=== PATIENT | male | born 1955 | race Caucasian/White ===

== ENCOUNTER 2016-11-18 10:24 | Emergency (ER) | payer SELFPAY ==
[~2016-11-18] VITALS: Ht 175.3 cm; Wt 76.4 kg
[2016-11-18 10:26] VITALS: BP 142/81; PULSE 85; RESP 16; TEMP 99.3; O2SAT 95
[2016-11-18 10:35] VITALS: O2SAT 96
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
[2016-11-18] MEDS ORDERED: SODIUM CHLORIDE 0.9% FLUSH 5 ML FLUSH IV FLUSH PRN (10:45)
--- NOTE | 2016-11-18 10:49 | RADRPT ---
EXAM DATE/TIME: 11/18/2016 10:36 [facility] COMPARISON: No previous studies available for comparison. INDICATIONS : Altered mental status; disorientation, slurred speech, resolved now. RADIATION DOSE: 41.77 CTDIvol (mGy) MEDICAL HISTORY : None SURGICAL HISTORY : None. ENCOUNTER: Initial ACUITY: 1 day PAIN SCALE: 0/10 LOCATION: cranial TECHNIQUE: Multiple contiguous axial images were obtained of the head. Using automated exposure control and adj ustment of the mA and/or kV according to patient size, radiation dose was kept as low as reasonably a chievable to obtain optimal diagnostic quality images. FINDINGS: CEREBRUM: The ventricles are normal. No evidence of midline shift, mass lesion, hemorrhage or acute infarction . No extra-axial fluid collections are seen. POSTERIOR FOSSA: The cerebellum and brainstem demonstrate no acute finding. The 4th ventricle is midline. The cerebe llopontine angle is unremarkable. EXTRACRANIAL: The visualized sinuses are clear. SKULL: The calvaria is intact. No evidence of skull fracture. CONCLUSION: No acute intracranial abnormality is identified. Tomy Jackson MD on November 18, 2016 at 10:45 Board Certified Radiologist. This report was verified electronically.
[2016-11-18 10:55] LABS: AUTOMATED NEUTROPHIL # 3.2 TH/MM3 (1.8-7.7); BASOPHIL # 0.2 TH/MM3 (0-0.2); BASOPHIL % 3.8 % (0.0-2.0); EOSINOPHIL # 0.9 TH/MM3 (0-0.4); EOSINOPHIL % 14.4 % (0.0-4.0); HEMATOCRIT 45.7 % (39.0-51.0); HEMO FLAGS DIFF FINAL; LYMPH % 19.9 % (9.0-44.0); LYMPHOCYTE # 1.2 TH/MM3 (1.0-4.8); MEAN CORPUSCULAR HEMOGLOBIN 27.8 PG (27.0-34.0); MEAN CORPUSCULAR HGB CONC 33.5 % (32.0-36.0); MONO % 10.2 % (0.0-8.0); NEUT % 51.7 % (16.0-70.0); PLATELET COUNT 292 TH/MM3 (150-450); RED BLOOD COUNT 5.51 MIL/MM3 (4.50-5.90); RED CELL DISTRIBUTION WIDTH 13.8 % (11.6-17.2); WHITE BLOOD COUNT 6.2 TH/MM3 (4.0-11.0)
--- NOTE | 2016-11-18 11:09 | RADRPT ---
EXAM DATE/TIME: 11/18/2016 10:46 [facility] COMPARISON: CHEST PA & LAT, February 17, 2015, 13:23. INDICATIONS : Syncopal episode. MEDICAL HISTORY : None. SURGICAL HISTORY : None. ENCOUNTER: Initial ACUITY: 1 day PAIN SCORE: 0/10 LOCATION: Bilateral chest FINDINGS: Portable AP view of the chest demonstrates a normal-sized cardiac silhouette. No effusion, consolidat ion, or pneumothorax is visualized. The bones and soft tissues demonstrate no acute abnormality. CONCLUSION: Normal single view chest x-ray. Tomy Jackson MD on November 18, 2016 at 11:07 Board Certified Radiologist. This report was verified electronically.
[2016-11-18 11:10] LABS: ALT (GPT) 23 U/L (12-78); ANION GAP 10 MEQ/L (5-15); AST (GOT) 15 U/L (15-37); BICARBONATE 28.4 MEQ/L (21.0-32.0); BLOOD UREA NITROGEN 10 MG/DL (7-18); CHLORIDE 103 MEQ/L (98-107); GLOMERULAR FILTRATION RATE 72 ML/MIN (>89); POTASSIUM 4.1 MEQ/L (3.5-5.1); SODIUM (NA) 141 MEQ/L (136-145)
[2016-11-18 11:14] LABS: ALKALINE PHOSPHATASE 78 U/L (45-117); TOTAL BILIRUBIN ADULT 0.4 MG/DL (0.2-1.0)
[2016-11-18 11:25] VITALS: BP 138/75; PULSE 69; RESP 18; O2SAT 97
[2016-11-18 11:35] LABS: CREATINE KINASE 46 U/L (39-308)
[2016-11-18 11:43] LABS: BLOOD, URINE NEG (NEG); COMMENT (UR) CULT NOT INDICATED; CULTURE IF INDICATED CULT NOT INDICATED; GLUCOSE,URINE NEG (NEG); KETONE, URINE NEG (NEG); MUCUS URINE FEW /lpf (OCC); NITRITE,URINE NEG (NEG); PH, URINE 5.5 (5.0-8.5); URINE COLOR YELLOW (YELLW/STRAW)
--- NOTE | 2016-11-18 14:56 | EKG ---
Date Performed: 11/18/2016 Time Performed: 11:39:43 PTAGE: 61 years EKG: Sinus rhythm NORMAL ECG COMPARED TO PRIOR ELECTROCARDIOGRAM, Rate has slowed and R-wave progression has normalize d. PREVIOUS TRACING : 02/17/2015 11.51 DOCTOR: Oc Ellison Interpretating Date/Time 11/18/2016 14:54:40
== END 2016-11-18 19:26 | disposition home or self-care (01) ==
LOC: NEPE 10:24
DX: R41.82 Altered mental status, unspecified (principal); R41.0 Disorientation, unspecified; R50.9 Fever, unspecified; Z72.0 Tobacco use
CPT/HCPCS: 70450; 71010; 80053; 81001; 82140; 82435; 82550; 82565; 82947; 83605; 84132; 84295; 84484; 84520; 85025; 87040; 93005

== ENCOUNTER 2018-05-08 20:34 | Inpatient (IN) ==
[2018-05-08] MEDS ORDERED: DOPamine 800 MG/500 ML Premix 800 MG/500 ML PLAST..BAG IV.CONT PRN (20:52)
--- NOTE | 2018-05-08 21:01 | XR ---
EXAM DATE: 05/08/2018 8:54 PM EST AGE/SEX: 63 years / Male INDICATIONS: Stemi alert. CLINICAL DATA: This is the patient's initial encounter. Patient reports that signs and symptoms have been present for 1 day and indicates a pain score of Nonresponsive. MEDICAL/SURGICAL HISTORY: None. None. COMPARISON: No prior exams available for comparison. FINDINGS: ET tube tip 2 cm above the fannie. Gastric tube tip is at the level of the diaphragm and the side-por t is in the lower chest. The lungs are symmetrically aerated. There is mild crowding of the central b ronchopulmonary markings suggesting submaximal inspiration. The heart is normal in size. CONCLUSION: 1. ET tube in good position. 2. Gastric tube side-port is in the lower chest and the tube needs to be advanced at least 7 cm. Electronically signed by: Ritesh Langston MD 05/08/2018 9:00 PM EST
[2018-05-08 21:10] LABS: Baso # (Auto) 0.1 th/mm3 (0.0-0.2); Baso % (Auto) 0.9 % (0.0-2.0); Eos # (Auto) 1.4 th/mm3 (0.0-0.4); Eos % (Auto) 10.3 % (0.0-4.0); Hematocrit 45.6 % (39.0-51.0); Hemoglobin 15.2 gm/dL (13.0-17.0); Lymph # (Auto) 3.1 th/mm3 (1.0-4.8); Lymph % (Auto) 22.6 % (9.0-44.0); Mean Corpuscular HGB Conc 33.3 % (32.0-36.0); Mean Corpuscular Hemoglobin 28.4 pg (27.0-34.0); Mean Corpuscular Volume 85.3 fL (80.0-100.0); Mean Platelet Volume 8.1 fL (7.0-11.0); Mono # (Auto) 0.9 th/mm3 (0.0-0.9); Mono % (Auto) 6.8 % (0.0-8.0); Neut # (Auto) 8.1 th/mm3 (1.8-7.7); Neut % (Auto) 59.4 % (16.0-70.0); Platelet Count 327 th/mm3 (150-450); Red Blood Count 5.35 mil/mm3 (4.50-5.90); Red Cell Distribution Width 14.2 % (11.6-17.2); White Blood Count 13.6 th/mm3 (4.0-11.0)
--- NOTE | 2018-05-08 21:11 | ED ---
HPI General Chief complaint: Cardiac Arrest/CPR Stated complaint: cardiac/evac Time Seen by Provider: 05/08/18 20:43 History of Present Illness HPI narrative: Patient 63-year-old male presents emergency department intubated after VF/VT arrest. He had to be defibrillated twice in the field, afterwards clear STEMI criteria was called by EVAC. Apparently heard a collapse in the next room found the patient unresponsive called 9 1. Apparently total downtime was about 10 minutes and had a very quick Ross. Blood pressure was little low and dopamine drip was started in the field. Patient also had amiodarone started in the field. Related Data Home Medications Medication Instructions Recorded Confirmed No Known Home Medications 05/08/18 05/08/18 Allergies Allergy/AdvReac Type Severity Reaction Status Date / Time No Known Allergies Allergy Uncoded 02/17/15 12:05 [facility] Medical History Medical History History of MRSA infection (Acute ~05/08/18) Surgical History Surgical History History of arthroscopy of both knees (Acute) Family History Family History Father Atherosclerotic heart disease Social History Social History Substance History: Unable to Obtain Smoking Status: Unknown if ever smoked How Often Do You Have a Drink Containing Alcohol: Unable to Obtain Recent Travel in [facility] within the Last 8 Weeks: No Recent Out of Country Travel within the Last 8 Weeks: No Immunization History Tetanus Immunization: Unable to Assess Course Initial Documented Vital Signs Respiratory Rate 25 H 05/08/18 20:35 Pulse Oximetry 100 05/08/18 20:35 Last Documented Vital Signs Temperature 100.6 F H 05/14/18 12:00 Pulse Rate 85 05/14/18 12:23 Respiratory Rate 24 05/14/18 12:23 Blood Pressure 132/70 05/14/18 12:00 Pulse Oximetry 97 05/14/18 12:23 Critical Care Time Critical Care Time: Yes Total Critical Care Time: 35 Attestation: Aggregate critical care time was 35 minutes. Time to perform other separately billable procedures was not included in the critical care time. My time did not include minutes spent treating any other patients simultaneously or on activities that did not directly contribute to the patient's treatment. The services I provided to this patient were to treat and/or prevent clinically significant deterioration that could result in: , disability, organ failure I provided critical care services requiring my management, as noted below: Chart data review, documentation time, medication orders and management, vital sign assessments/reviewing monitor data, ordering and reviewing lab tests, ordering and interpreting/reviewing x-rays and diagnostic studies, care of the patient and discussion of the patient with the admitting physicians. Medical Decision Making MDM Narrative Medical decision making narrative: 63-year-old male presents emergency department post VF VT arrest, clear STEMI and an anterior inferior pattern. The patient was actually STEMI alert. Dr. Blum is called as he is currently in the [employer] with another patient. I discussed the case with him but ultimately the patient is [employer] patient and will be Dr. Cardenas's patient patient was discussed with Dr. Cardenas and he is coming to the hospital to evaluate the patient. Patient also does have some dried blood in his nares. Quite possibly fell on his head the same time and needs to be excluded from intracranial hemorrhage prior to receiving heparin or aspirin. The patient was taken immediately to the CAT scanner and the patient was discussed with the on- call radiologist and immediately after the CAT scan was performed the patient was diagnosed with a punctate pontine hemorrhage. The patient was discussed again with both Drs. Cardenas and Viktoria in all 3 of us in agreement that the patient cannot be heparinized and the risks far outweigh the benefits and therefore unfortunately cannot proceed with cardiac catheterization. The patient STEMI alert was canceled. Patient was discussed with Dr. Palmer and probably can benefit from cooling protocol and Dr. Palmer is agreeable. Cooling catheter will be placed in the emergency department the patient will be transferred to the intensive care unit. Patient was started on amiodarone drip, blood cultures lactic acid were obtained. Patient initially was moving his left upper extremity, later in his stay in the emergency department he is now requiring aggressive stimulation to trigger any neurologic response and he is moving both upper extremities but appears to be in a nonpurposeful movement and may be neurologic reflex only. Patient's arrived at bedside was counseled by Dr. Palmer. Prognosis seems poor. Medical Screen Exam Complete: Yes Emergency Medical Condition: Yes Lab Data Result diagrams: 05/14/18 04:05 05/14/18 04:05 Lab Results 05/08/18 05/08/18 05/08/18 Range/Units 20:45 20:45 20:45 WBC 13.6 H (4.0-11.0) th/mm3 RBC 5.35 (4.50-5.90) mil/mm3 Hgb 15.2 (13.0-17.0) gm/dL POC Hgb (Calc) 15.6 (13.0-17.0) g/dL Hct 45.6 (39.0-51.0) % POC Hct 46.0 (39-51.0) % MCV 85.3 (80.0-100.0) fL MCH 28.4 (27.0-34.0) pg MCHC 33.3 (32.0-36.0) % RDW 14.2 (11.6-17.2) % Plt Count 327 (150-450) th/mm3 MPV 8.1 (7.0-11.0) fL Prelim Diff (Auto) Slide review pending Neut % (Auto) 59.4 (16.0-70.0) % Lymph % (Auto) 22.6 (9.0-44.0) % Harper % (Auto) 6.8 (0.0-8.0) % Eos % (Auto) 10.3 H (0.0-4.0) % Baso % (Auto) 0.9 (0.0-2.0) % Neut # (Auto) 8.1 H (1.8-7.7) th/mm3 Lymph # (Auto) 3.1 (1.0-4.8) th/mm3 Harper # (Auto) 0.9 (0.0-0.9) th/mm3 Eos # (Auto) 1.4 H (0.0-0.4) th/mm3 Baso # (Auto) 0.1 (0.0-0.2) th/mm3 WBC Differential Manual diff final Seg Neuts % (Manual) 63 (16-70) % Lymphocytes % (Manual) 21 (9-44) % Monocytes % (Manual) 7 (0-8) % Eosinophils % (Manual) 9 H (0-4) % Abs Neuts (Manual) 8.6 H (1.8-7.7) th/mm3 Differential Comment . Platelet Estimate Normal (Normal) Platelet Morphology Normal (Normal) RBC Morphology Normal (Normal) PT 11.2 (9.8-11.6) sec INR 1.1 Ratio APTT 24.5 (23.4-31.7) sec Puncture Site Patient Temperature O2 Saturation (90-100) % ABG pH (7.320-7.420) ABG pCO2 (38-42) mmHg ABG pO2 (60-120) mmHg ABG HCO3 (22-26) mmol/L ABG O2 Content (12.0-20.0) Vol % ABG Base Excess (-2-2) mmol/L ABG Methemoglobin (0-2) % David Test Hemoglobin (12.0-16.0) G/DL Carboxyhemoglobin (0-4) % O2 Delivery Device Vent Setting Inspired O2 % Critical Value POC Sodium 137 (137-144) mmol/L Sodium 137 (136-145) meq/L POC Potassium 3.2 L (3.6-5.0) mmol/L Potassium 3.2 L (3.5-5.1) meq/L POC Chloride 96 L (102-111) mmol/L Chloride 100 (98-107) meq/L Carbon Dioxide 20.5 L (21.0-32.0) meq/L Anion Gap 17 H (5-15) meq/L POC BUN 6 (5-21) mg/dL BUN 7 (7-18) mg/dL Creatinine 1.13 (0.60-1.30) mg/dL POC Creatinine 1.0 (0.6-1.3) mg/dL Estimated GFR 65 L (>89) mL/min POC Glucose 327 H (68-110) mg/dL Random Glucose 328 H (74-106) mg/dL Hemoglobin A1c (4.3-6.0) % Lactic Acid (0.4-2.0) mmol/L Calcium 8.9 (8.5-10.1) mg/dL Phosphorus (2.5-4.9) mg/dL Magnesium (1.5-2.5) mg/dL Total Bilirubin 1.0 (0.2-1.0) mg/dL Direct Bilirubin (0.0-0.2) mg/dL Indirect Bilirubin (0.0-0.8) mg/dL AST 107 H (15-37) U/L ALT 86 H (12-78) U/L Alkaline Phosphatase 88 (45-117) U/L Ammonia (11-32) mcmol/L Total Creatine Kinase (39-308) U/L CK-MB (CK-2) (0.5-3.6) ng/mL CK-MB (CK-2) % (0.0-4.0) % Troponin I 0.38 H (0.02-0.05) ng/mL Total Protein 6.4 (6.4-8.2) g/dL Albumin 3.4 (3.4-5.0) g/dL Triglycerides (42-150) mg/dL Cholesterol (120-200) mg/dL LDL Cholesterol, Calc (0-99) mg/dL HDL Cholesterol (40.0-60.0) mg/dL Cholesterol/HDL Ratio Ratio TSH (0.358-3.740) uIU/mL Free T4 (0.76-1.46) ng/dL Total T3 (60-181) ng/dL Cortisol mcg/dL Urine Color (Yellw/Straw) Urine Clarity (Clear) Urine pH (5.0-8.5) Ur Specific Bentley (1.002-1.035) Urine Protein (Neg-Trace) mg/dL Urine Glucose (UA) (Negative) mg/dL Urine Ketones (Negative) mg/dL Urine Occult Blood (Negative) Urine Nitrate (Negative) Urine Bilirubin (Negative) Urine Urobilinogen (Less than 2) mg/dL Ur Leukocyte Esterase (Negative) Urine RBC (0-3) /hpf Urine WBC (0-5) /hpf Ur Squamous Epith Cells (0-5) /hpf Urine Bacteria (None) /hpf Micro UA Comment Ur Microscopic Review Urine Culture Comments Nasal Screen MRSA (PCR) (Negative) Urine Opiates Screen (Neg) Ur Barbiturates Screen (Neg) Phenytoin (10.0-20.0) mcg/mL Ur Amphetamines Screen (Neg) Phenobarbital (15.0-40.0) mcg/mL U Benzodiazepines Scrn (Neg) Urine Cocaine Screen (Neg) U Cannabinoids Screen (Neg) Hepatitis A IgM Ab (Nonreactive) Hep Bs Antigen (Nonreactive) Hep B Core IgM Ab (Nonreactive) Hep C IgG Ab (Nonreactive) Blood Type Blood Type Recheck Antibody Screen 05/08/18 05/08/18 05/08/18 Range/Units 21:38 21:50 22:30 WBC (4.0-11.0) th/mm3 RBC (4.50-5.90) mil/mm3 Hgb (13.0-17.0) gm/dL POC Hgb (Calc) (13.0-17.0) g/dL Hct (39.0-51.0) % POC Hct (39-51.0) % MCV (80.0-100.0) fL MCH (27.0-34.0) pg MCHC (32.0-36.0) % RDW (11.6-17.2) % Plt Count (150-450) th/mm3 MPV (7.0-11.0) fL Prelim Diff (Auto) Neut % (Auto) (16.0-70.0) % Lymph % (Auto) (9.0-44.0) % Harper % (Auto) (0.0-8.0) % Eos % (Auto) (0.0-4.0) % Baso % (Auto) (0.0-2.0) % Neut # (Auto) (1.8-7.7) th/mm3 Lymph # (Auto) (1.0-4.8) th/mm3 Harper # (Auto) (0.0-0.9) th/mm3 Eos # (Auto) (0.0-0.4) th/mm3 Baso # (Auto) (0.0-0.2) th/mm3 WBC Differential Seg Neuts % (Manual) (16-70) % Lymphocytes % (Manual) (9-44) % Monocytes % (Manual) (0-8) % Eosinophils % (Manual) (0-4) % Abs Neuts (Manual) (1.8-7.7) th/mm3 Differential Comment Platelet Estimate (Normal) Platelet Morphology (Normal) RBC Morphology (Normal) PT (9.8-11.6) sec INR Ratio APTT (23.4-31.7) sec Puncture Site Right femoral Patient Temperature 98.6 O2 Saturation 99 (90-100) % ABG pH 7.39 (7.320-7.420) ABG pCO2 42 (38-42) mmHg ABG pO2 244 H (60-120) mmHg ABG HCO3 24 (22-26) mmol/L ABG O2 Content 22.2 H (12.0-20.0) Vol % ABG Base Excess 0.0 (-2-2) mmol/L ABG Methemoglobin 0.6 (0-2) % David Test Hemoglobin 15.7 (12.0-16.0) G/DL Carboxyhemoglobin 0.6 (0-4) % O2 Delivery Device Ventilator Vent Setting Inspired O2 100 % Critical Value No POC Sodium (137-144) mmol/L Sodium (136-145) meq/L POC Potassium (3.6-5.0) mmol/L Potassium (3.5-5.1) meq/L POC Chloride (102-111) mmol/L Chloride (98-107) meq/L Carbon Dioxide (21.0-32.0) meq/L Anion Gap (5-15) meq/L POC BUN (5-21) mg/dL BUN (7-18) mg/dL Creatinine (0.60-1.30) mg/dL POC Creatinine (0.6-1.3) mg/dL Estimated GFR (>89) mL/min POC Glucose (68-110) mg/dL Random Glucose (74-106) mg/dL Hemoglobin A1c (4.3-6.0) % Lactic Acid 4.6 H* (0.4-2.0) mmol/L Calcium (8.5-10.1) mg/dL Phosphorus (2.5-4.9) mg/dL Magnesium (1.5-2.5) mg/dL Total Bilirubin (0.2-1.0) mg/dL Direct Bilirubin (0.0-0.2) mg/dL Indirect Bilirubin (0.0-0.8) mg/dL AST (15-37) U/L ALT (12-78) U/L Alkaline Phosphatase (45-117) U/L Ammonia (11-32) mcmol/L Total Creatine Kinase (39-308) U/L CK-MB (CK-2) (0.5-3.6) ng/mL CK-MB (CK-2) % (0.0-4.0) % Troponin I (0.02-0.05) ng/mL Total Protein (6.4-8.2) g/dL Albumin (3.4-5.0) g/dL Triglycerides (42-150) mg/dL Cholesterol (120-200) mg/dL LDL Cholesterol, Calc (0-99) mg/dL HDL Cholesterol (40.0-60.0) mg/dL Cholesterol/HDL Ratio Ratio TSH (0.358-3.740) uIU/mL Free T4 (0.76-1.46) ng/dL Total T3 (60-181) ng/dL Cortisol mcg/dL Urine Color Straw (Yellw/Straw) Urine Clarity Clear (Clear) Urine pH 6.0 (5.0-8.5) Ur Specific Bentley 1.005 (1.002-1.035) Urine Protein 30 H (Neg-Trace) mg/dL Urine Glucose (UA) 500 or greater (Negative) mg/dL Urine Ketones Trace H (Negative) mg/dL Urine Occult Blood Moderate H (Negative) Urine Nitrate Negative (Negative) Urine Bilirubin Negative (Negative) Urine Urobilinogen Less than 2 (Less than 2) mg/dL Ur Leukocyte Esterase Negative (Negative) Urine RBC 5 H (0-3) /hpf Urine WBC 6 H (0-5) /hpf Ur Squamous Epith Cells <1 (0-5) /hpf Urine Bacteria Occasional H (None) /hpf Micro UA Comment Cath-culture ind Ur Microscopic Review Not Reportable Urine Culture Comments Cath-cult indicated Nasal Screen MRSA (PCR) (Negative) Urine Opiates Screen (Neg) Ur Barbiturates Screen (Neg) Phenytoin (10.0-20.0) mcg/mL Ur Amphetamines Screen (Neg) Phenobarbital (15.0-40.0) mcg/mL U Benzodiazepines Scrn (Neg) Urine Cocaine Screen (Neg) U Cannabinoids Screen (Neg) Hepatitis A IgM Ab (Nonreactive) Hep Bs Antigen (Nonreactive) Hep B Core IgM Ab (Nonreactive) Hep C IgG Ab (Nonreactive) Blood Type Blood Type Recheck Antibody Screen 05/08/18 05/09/18 05/09/18 Range/Units 22:30 00:07 01:10 WBC (4.0-11.0) th/mm3 RBC (4.50-5.90) mil/mm3 Hgb (13.0-17.0) gm/dL POC Hgb (Calc) (13.0-17.0) g/dL Hct (39.0-51.0) % POC Hct (39-51.0) % MCV (80.0-100.0) fL MCH (27.0-34.0) pg MCHC (32.0-36.0) % RDW (11.6-17.2) % Plt Count (150-450) th/mm3 MPV (7.0-11.0) fL Prelim Diff (Auto) Neut % (Auto) (16.0-70.0) % Lymph % (Auto) (9.0-44.0) % Harper % (Auto) (0.0-8.0) % Eos % (Auto) (0.0-4.0) % Baso % (Auto) (0.0-2.0) % Neut # (Auto) (1.8-7.7) th/mm3 Lymph # (Auto) (1.0-4.8) th/mm3 Harper # (Auto) (0.0-0.9) th/mm3 Eos # (Auto) (0.0-0.4) th/mm3 Baso # (Auto) (0.0-0.2) th/mm3 WBC Differential Seg Neuts % (Manual) (16-70) % Lymphocytes % (Manual) (9-44) % Monocytes % (Manual) (0-8) % Eosinophils % (Manual) (0-4) % Abs Neuts (Manual) (1.8-7.7) th/mm3 Differential Comment Platelet Estimate (Normal) Platelet Morphology (Normal) RBC Morphology (Normal) PT (9.8-11.6) sec INR Ratio APTT (23.4-31.7) sec Puncture Site Patient Temperature O2 Saturation (90-100) % ABG pH (7.320-7.420) ABG pCO2 (38-42) mmHg ABG pO2 (60-120) mmHg ABG HCO3 (22-26) mmol/L ABG O2 Content (12.0-20.0) Vol % ABG Base Excess (-2-2) mmol/L ABG Methemoglobin (0-2) % David Test Hemoglobin (12.0-16.0) G/DL Carboxyhemoglobin (0-4) % O2 Delivery Device Vent Setting Inspired O2 % Critical Value POC Sodium (137-144) mmol/L Sodium (136-145) meq/L POC Potassium (3.6-5.0) mmol/L Potassium (3.5-5.1) meq/L POC Chloride (102-111) mmol/L Chloride (98-107) meq/L Carbon Dioxide (21.0-32.0) meq/L Anion Gap (5-15) meq/L POC BUN (5-21) mg/dL BUN (7-18) mg/dL Creatinine (0.60-1.30) mg/dL POC Creatinine (0.6-1.3) mg/dL Estimated GFR (>89) mL/min POC Glucose 275 H (68-110) mg/dL Random Glucose (74-106) mg/dL Hemoglobin A1c (4.3-6.0) % Lactic Acid (0.4-2.0) mmol/L Calcium (8.5-10.1) mg/dL Phosphorus (2.5-4.9) mg/dL Magnesium (1.5-2.5) mg/dL Total Bilirubin 1.1 H (0.2-1.0) mg/dL Direct Bilirubin 0.3 H (0.0-0.2) mg/dL Indirect Bilirubin 0.8 (0.0-0.8) mg/dL AST 151 H (15-37) U/L ALT 120 H (12-78) U/L Alkaline Phosphatase 95 (45-117) U/L Ammonia (11-32) mcmol/L Total Creatine Kinase (39-308) U/L CK-MB (CK-2) (0.5-3.6) ng/mL CK-MB (CK-2) % (0.0-4.0) % Troponin I (0.02-0.05) ng/mL Total Protein 7.5 D (6.4-8.2) g/dL Albumin 4.1 D (3.4-5.0) g/dL Triglycerides (42-150) mg/dL Cholesterol (120-200) mg/dL LDL Cholesterol, Calc (0-99) mg/dL HDL Cholesterol (40.0-60.0) mg/dL Cholesterol/HDL Ratio Ratio TSH (0.358-3.740) uIU/mL Free T4 (0.76-1.46) ng/dL Total T3 (60-181) ng/dL Cortisol mcg/dL Urine Color (Yellw/Straw) Urine Clarity (Clear) Urine pH (5.0-8.5) Ur Specific Bentley (1.002-1.035) Urine Protein (Neg-Trace) mg/dL Urine Glucose (UA) (Negative) mg/dL Urine Ketones (Negative) mg/dL Urine Occult Blood (Negative) Urine Nitrate (Negative) Urine Bilirubin (Negative) Urine Urobilinogen (Less than 2) mg/dL Ur Leukocyte Esterase (Negative) Urine RBC (0-3) /hpf Urine WBC (0-5) /hpf Ur Squamous Epith Cells (0-5) /hpf Urine Bacteria (None) /hpf Micro UA Comment Ur Microscopic Review Urine Culture Comments Nasal Screen MRSA (PCR) Mrsa detected (Negative) Urine Opiates Screen (Neg) Ur Barbiturates Screen (Neg) Phenytoin (10.0-20.0) mcg/mL Ur Amphetamines Screen (Neg) Phenobarbital (15.0-40.0) mcg/mL U Benzodiazepines Scrn (Neg) Urine Cocaine Screen (Neg) U Cannabinoids Screen (Neg) Hepatitis A IgM Ab (Nonreactive) Hep Bs Antigen (Nonreactive) Hep B Core IgM Ab (Nonreactive) Hep C IgG Ab (Nonreactive) Blood Type Blood Type Recheck Antibody Screen 05/09/18 05/09/18 05/09/18 Range/Units 01:10 02:25 04:57 WBC 18.3 H (4.0-11.0) th/mm3 RBC 5.36 (4.50-5.90) mil/mm3 Hgb 15.2 (13.0-17.0) gm/dL POC Hgb (Calc) (13.0-17.0) g/dL Hct 45.9 (39.0-51.0) % POC Hct (39-51.0) % MCV 85.6 (80.0-100.0) fL MCH 28.3 (27.0-34.0) pg MCHC 33.1 (32.0-36.0) % RDW 14.1 (11.6-17.2) % Plt Count 275 (150-450) th/mm3 MPV 7.4 (7.0-11.0) fL Prelim Diff (Auto) Neut % (Auto) 91.6 H (16.0-70.0) % Lymph % (Auto) 2.3 L (9.0-44.0) % Harper % (Auto) 5.8 (0.0-8.0) % Eos % (Auto) 0.2 (0.0-4.0) % Baso % (Auto) 0.1 (0.0-2.0) % Neut # (Auto) 16.7 H (1.8-7.7) th/mm3 Lymph # (Auto) 0.4 L (1.0-4.8) th/mm3 Harper # (Auto) 1.1 H (0.0-0.9) th/mm3 Eos # (Auto) 0.0 (0.0-0.4) th/mm3 Baso # (Auto) 0.0 (0.0-0.2) th/mm3 WBC Differential . Seg Neuts % (Manual) (16-70) % Lymphocytes % (Manual) (9-44) % Monocytes % (Manual) (0-8) % Eosinophils % (Manual) (0-4) % Abs Neuts (Manual) (1.8-7.7) th/mm3 Differential Comment Auto diff final Platelet Estimate (Normal) Platelet Morphology (Normal) RBC Morphology (Normal) PT (9.8-11.6) sec INR Ratio APTT (23.4-31.7) sec Puncture Site Patient Temperature O2 Saturation (90-100) % ABG pH (7.320-7.420) ABG pCO2 (38-42) mmHg ABG pO2 (60-120) mmHg ABG HCO3 (22-26) mmol/L ABG O2 Content (12.0-20.0) Vol % ABG Base Excess (-2-2) mmol/L ABG Methemoglobin (0-2) % David Test Hemoglobin (12.0-16.0) G/DL Carboxyhemoglobin (0-4) % O2 Delivery Device Vent Setting Inspired O2 % Critical Value POC Sodium (137-144) mmol/L Sodium 135 L (136-145) meq/L POC Potassium (3.6-5.0) mmol/L Potassium 3.5 (3.5-5.1) meq/L POC Chloride (102-111) mmol/L Chloride 101 (98-107) meq/L Carbon Dioxide 23.9 (21.0-32.0) meq/L Anion Gap 10 (5-15) meq/L POC BUN (5-21) mg/dL BUN 10 (7-18) mg/dL Creatinine 0.88 (0.60-1.30) mg/dL POC Creatinine (0.6-1.3) mg/dL Estimated GFR 87 L (>89) mL/min POC Glucose (68-110) mg/dL Random Glucose 336 H (74-106) mg/dL Hemoglobin A1c (4.3-6.0) % Lactic Acid (0.4-2.0) mmol/L Calcium 8.7 (8.5-10.1) mg/dL Phosphorus 1.7 L (2.5-4.9) mg/dL Magnesium 1.7 (1.5-2.5) mg/dL Total Bilirubin 1.1 H (0.2-1.0) mg/dL Direct Bilirubin (0.0-0.2) mg/dL Indirect Bilirubin (0.0-0.8) mg/dL AST 146 H (15-37) U/L ALT 116 H (12-78) U/L Alkaline Phosphatase 90 (45-117) U/L Ammonia (11-32) mcmol/L Total Creatine Kinase (39-308) U/L CK-MB (CK-2) (0.5-3.6) ng/mL CK-MB (CK-2) % (0.0-4.0) % Troponin I 2.86 H* (0.02-0.05) ng/mL Total Protein 7.2 (6.4-8.2) g/dL Albumin 3.9 (3.4-5.0) g/dL Triglycerides (42-150) mg/dL Cholesterol (120-200) mg/dL LDL Cholesterol, Calc (0-99) mg/dL HDL Cholesterol (40.0-60.0) mg/dL Cholesterol/HDL Ratio Ratio TSH (0.358-3.740) uIU/mL Free T4 (0.76-1.46) ng/dL Total T3 (60-181) ng/dL Cortisol mcg/dL Urine Color (Yellw/Straw) Urine Clarity (Clear) Urine pH (5.0-8.5) Ur Specific Bentley (1.002-1.035) Urine Protein (Neg-Trace) mg/dL Urine Glucose (UA) (Negative) mg/dL Urine Ketones (Negative) mg/dL Urine Occult Blood (Negative) Urine Nitrate (Negative) Urine Bilirubin (Negative) Urine Urobilinogen (Less than 2) mg/dL Ur Leukocyte Esterase (Negative) Urine RBC (0-3) /hpf Urine WBC (0-5) /hpf Ur Squamous Epith Cells (0-5) /hpf Urine Bacteria (None) /hpf Micro UA Comment Ur Microscopic Review Urine Culture Comments Nasal Screen MRSA (PCR) (Negative) Urine Opiates Screen (Neg) Ur Barbiturates Screen (Neg) Phenytoin (10.0-20.0) mcg/mL Ur Amphetamines Screen (Neg) Phenobarbital (15.0-40.0) mcg/mL U Benzodiazepines Scrn (Neg) Urine Cocaine Screen (Neg) U Cannabinoids Screen (Neg) Hepatitis A IgM Ab (Nonreactive) Hep Bs Antigen (Nonreactive) Hep B Core IgM Ab (Nonreactive) Hep C IgG Ab (Nonreactive) Blood Type O Positive Blood Type Recheck Required Antibody Screen Negative 05/09/18 05/09/18 05/09/18 Range/Units 04:57 05:00 07:07 WBC (4.0-11.0) th/mm3 RBC (4.50-5.90) mil/mm3 Hgb (13.0-17.0) gm/dL POC Hgb (Calc) (13.0-17.0) g/dL Hct (39.0-51.0) % POC Hct (39-51.0) % MCV (80.0-100.0) fL MCH (27.0-34.0) pg MCHC (32.0-36.0) % RDW (11.6-17.2) % Plt Count (150-450) th/mm3 MPV (7.0-11.0) fL Prelim Diff (Auto) Neut % (Auto) (16.0-70.0) % Lymph % (Auto) (9.0-44.0) % Harper % (Auto) (0.0-8.0) % Eos % (Auto) (0.0-4.0) % Baso % (Auto) (0.0-2.0) % Neut # (Auto) (1.8-7.7) th/mm3 Lymph # (Auto) (1.0-4.8) th/mm3 Harper # (Auto) (0.0-0.9) th/mm3 Eos # (Auto) (0.0-0.4) th/mm3 Baso # (Auto) (0.0-0.2) th/mm3 WBC Differential Seg Neuts % (Manual) (16-70) % Lymphocytes % (Manual) (9-44) % Monocytes % (Manual) (0-8) % Eosinophils % (Manual) (0-4) % Abs Neuts (Manual) (1.8-7.7) th/mm3 Differential Comment Platelet Estimate (Normal) Platelet Morphology (Normal) RBC Morphology (Normal) PT 11.8 H (9.8-11.6) sec INR 1.2 Ratio APTT 27.7 (23.4-31.7) sec Puncture Site Patient Temperature O2 Saturation (90-100) % ABG pH (7.320-7.420) ABG pCO2 (38-42) mmHg ABG pO2 (60-120) mmHg ABG HCO3 (22-26) mmol/L ABG O2 Content (12.0-20.0) Vol % ABG Base Excess (-2-2) mmol/L ABG Methemoglobin (0-2) % David Test Hemoglobin (12.0-16.0) G/DL Carboxyhemoglobin (0-4) % O2 Delivery Device Vent Setting Inspired O2 % Critical Value POC Sodium (137-144) mmol/L Sodium (136-145) meq/L POC Potassium (3.6-5.0) mmol/L Potassium (3.5-5.1) meq/L POC Chloride (102-111) mmol/L Chloride (98-107) meq/L Carbon Dioxide (21.0-32.0) meq/L Anion Gap (5-15) meq/L POC BUN (5-21) mg/dL BUN (7-18) mg/dL Creatinine (0.60-1.30) mg/dL POC Creatinine (0.6-1.3) mg/dL Estimated GFR (>89) mL/min POC Glucose 326 H 254 H (68-110) mg/dL Random Glucose (74-106) mg/dL Hemoglobin A1c (4.3-6.0) % Lactic Acid (0.4-2.0) mmol/L Calcium (8.5-10.1) mg/dL Phosphorus (2.5-4.9) mg/dL Magnesium (1.5-2.5) mg/dL Total Bilirubin (0.2-1.0) mg/dL Direct Bilirubin (0.0-0.2) mg/dL Indirect Bilirubin (0.0-0.8) mg/dL AST (15-37) U/L ALT (12-78) U/L Alkaline Phosphatase (45-117) U/L Ammonia (11-32) mcmol/L Total Creatine Kinase (39-308) U/L CK-MB (CK-2) (0.5-3.6) ng/mL CK-MB (CK-2) % (0.0-4.0) % Troponin I (0.02-0.05) ng/mL Total Protein (6.4-8.2) g/dL Albumin (3.4-5.0) g/dL Triglycerides (42-150) mg/dL Cholesterol (120-200) mg/dL LDL Cholesterol, Calc (0-99) mg/dL HDL Cholesterol (40.0-60.0) mg/dL Cholesterol/HDL Ratio Ratio TSH (0.358-3.740) uIU/mL Free T4 (0.76-1.46) ng/dL Total T3 (60-181) ng/dL Cortisol mcg/dL Urine Color (Yellw/Straw) Urine Clarity (Clear) Urine pH (5.0-8.5) Ur Specific Bentley (1.002-1.035) Urine Protein (Neg-Trace) mg/dL Urine Glucose (UA) (Negative) mg/dL Urine Ketones (Negative) mg/dL Urine Occult Blood (Negative) Urine Nitrate (Negative) Urine Bilirubin (Negative) Urine Urobilinogen (Less than 2) mg/dL Ur Leukocyte Esterase (Negative) Urine RBC (0-3) /hpf Urine WBC (0-5) /hpf Ur Squamous Epith Cells (0-5) /hpf Urine Bacteria (None) /hpf Micro UA Comment Ur Microscopic Review Urine Culture Comments Nasal Screen MRSA (PCR) (Negative) Urine Opiates Screen (Neg) Ur Barbiturates Screen (Neg) Phenytoin (10.0-20.0) mcg/mL Ur Amphetamines Screen (Neg) Phenobarbital (15.0-40.0) mcg/mL U Benzodiazepines Scrn (Neg) Urine Cocaine Screen (Neg) U Cannabinoids Screen (Neg) Hepatitis A IgM Ab (Nonreactive) Hep Bs Antigen (Nonreactive) Hep B Core IgM Ab (Nonreactive) Hep C IgG Ab (Nonreactive) Blood Type Blood Type Recheck Antibody Screen 05/09/18 05/09/18 05/09/18 Range/Units 07:59 09:00 09:04 WBC (4.0-11.0) th/mm3 RBC (4.50-5.90) mil/mm3 Hgb (13.0-17.0) gm/dL POC Hgb (Calc) (13.0-17.0) g/dL Hct (39.0-51.0) % POC Hct (39-51.0) % MCV (80.0-100.0) fL MCH (27.0-34.0) pg MCHC (32.0-36.0) % RDW (11.6-17.2) % Plt Count (150-450) th/mm3 MPV (7.0-11.0) fL Prelim Diff (Auto) Neut % (Auto) (16.0-70.0) % Lymph % (Auto) (9.0-44.0) % Harper % (Auto) (0.0-8.0) % Eos % (Auto) (0.0-4.0) % Baso % (Auto) (0.0-2.0) % Neut # (Auto) (1.8-7.7) th/mm3 Lymph # (Auto) (1.0-4.8) th/mm3 Harper # (Auto) (0.0-0.9) th/mm3 Eos # (Auto) (0.0-0.4) th/mm3 Baso # (Auto) (0.0-0.2) th/mm3 WBC Differential Seg Neuts % (Manual) (16-70) % Lymphocytes % (Manual) (9-44) % Monocytes % (Manual) (0-8) % Eosinophils % (Manual) (0-4) % Abs Neuts (Manual) (1.8-7.7) th/mm3 Differential Comment Platelet Estimate (Normal) Platelet Morphology (Normal) RBC Morphology (Normal) PT (9.8-11.6) sec INR Ratio APTT (23.4-31.7) sec Puncture Site Patient Temperature O2 Saturation (90-100) % ABG pH (7.320-7.420) ABG pCO2 (38-42) mmHg ABG pO2 (60-120) mmHg ABG HCO3 (22-26) mmol/L ABG O2 Content (12.0-20.0) Vol % ABG Base Excess (-2-2) mmol/L ABG Methemoglobin (0-2) % David Test Hemoglobin (12.0-16.0) G/DL Carboxyhemoglobin (0-4) % O2 Delivery Device Vent Setting Inspired O2 % Critical Value POC Sodium (137-144) mmol/L Sodium 138 (136-145) meq/L POC Potassium (3.6-5.0) mmol/L Potassium 2.8 L* (3.5-5.1) meq/L POC Chloride (102-111) mmol/L Chloride 103 (98-107) meq/L Carbon Dioxide 24.6 (21.0-32.0) meq/L Anion Gap 10 (5-15) meq/L POC BUN (5-21) mg/dL BUN 10 (7-18) mg/dL Creatinine 0.82 (0.60-1.30) mg/dL POC Creatinine (0.6-1.3) mg/dL Estimated GFR Greater than 89 (>89) mL/min POC Glucose 293 H 265 H (68-110) mg/dL Random Glucose 277 H (74-106) mg/dL Hemoglobin A1c (4.3-6.0) % Lactic Acid (0.4-2.0) mmol/L Calcium 8.7 (8.5-10.1) mg/dL Phosphorus (2.5-4.9) mg/dL Magnesium 1.9 (1.5-2.5) mg/dL Total Bilirubin (0.2-1.0) mg/dL Direct Bilirubin (0.0-0.2) mg/dL Indirect Bilirubin (0.0-0.8) mg/dL AST (15-37) U/L ALT (12-78) U/L Alkaline Phosphatase (45-117) U/L Ammonia (11-32) mcmol/L Total Creatine Kinase (39-308) U/L CK-MB (CK-2) (0.5-3.6) ng/mL CK-MB (CK-2) % (0.0-4.0) % Troponin I (0.02-0.05) ng/mL Total Protein (6.4-8.2) g/dL Albumin (3.4-5.0) g/dL Triglycerides (42-150) mg/dL Cholesterol (120-200) mg/dL LDL Cholesterol, Calc (0-99) mg/dL HDL Cholesterol (40.0-60.0) mg/dL Cholesterol/HDL Ratio Ratio TSH (0.358-3.740) uIU/mL Free T4 (0.76-1.46) ng/dL Total T3 (60-181) ng/dL Cortisol mcg/dL Urine Color (Yellw/Straw) Urine Clarity (Clear) Urine pH (5.0-8.5) Ur Specific Bentley (1.002-1.035) Urine Protein (Neg-Trace) mg/dL Urine Glucose (UA) (Negative) mg/dL Urine Ketones (Negative) mg/dL Urine Occult Blood (Negative) Urine Nitrate (Negative) Urine Bilirubin (Negative) Urine Urobilinogen (Less than 2) mg/dL Ur Leukocyte Esterase (Negative) Urine RBC (0-3) /hpf Urine WBC (0-5) /hpf Ur Squamous Epith Cells (0-5) /hpf Urine Bacteria (None) /hpf Micro UA Comment Ur Microscopic Review Urine Culture Comments Nasal Screen MRSA (PCR) (Negative) Urine Opiates Screen (Neg) Ur Barbiturates Screen (Neg) Phenytoin (10.0-20.0) mcg/mL Ur Amphetamines Screen (Neg) Phenobarbital (15.0-40.0) mcg/mL U Benzodiazepines Scrn (Neg) Urine Cocaine Screen (Neg) U Cannabinoids Screen (Neg) Hepatitis A IgM Ab (Nonreactive) Hep Bs Antigen (Nonreactive) Hep B Core IgM Ab (Nonreactive) Hep C IgG Ab (Nonreactive) Blood Type Blood Type Recheck Antibody Screen 05/09/18 05/09/18 05/09/18 Range/Units 09:54 10:55 11:02 WBC (4.0-11.0) th/mm3 RBC (4.50-5.90) mil/mm3 Hgb (13.0-17.0) gm/dL POC Hgb (Calc) (13.0-17.0) g/dL Hct (39.0-51.0) % POC Hct (39-51.0) % MCV (80.0-100.0) fL MCH (27.0-34.0) pg MCHC (32.0-36.0) % RDW (11.6-17.2) % Plt Count (150-450) th/mm3 MPV (7.0-11.0) fL Prelim Diff (Auto) Neut % (Auto) (16.0-70.0) % Lymph % (Auto) (9.0-44.0) % Harper % (Auto) (0.0-8.0) % Eos % (Auto) (0.0-4.0) % Baso % (Auto) (0.0-2.0) % Neut # (Auto) (1.8-7.7) th/mm3 Lymph # (Auto) (1.0-4.8) th/mm3 Harper # (Auto) (0.0-0.9) th/mm3 Eos # (Auto) (0.0-0.4) th/mm3 Baso # (Auto) (0.0-0.2) th/mm3 WBC Differential Seg Neuts % (Manual) (16-70) % Lymphocytes % (Manual) (9-44) % Monocytes % (Manual) (0-8) % Eosinophils % (Manual) (0-4) % Abs Neuts (Manual) (1.8-7.7) th/mm3 Differential Comment Platelet Estimate (Normal) Platelet Morphology (Normal) RBC Morphology (Normal) PT (9.8-11.6) sec INR Ratio APTT (23.4-31.7) sec Puncture Site Patient Temperature O2 Saturation (90-100) % ABG pH (7.320-7.420) ABG pCO2 (38-42) mmHg ABG pO2 (60-120) mmHg ABG HCO3 (22-26) mmol/L ABG O2 Content (12.0-20.0) Vol % ABG Base Excess (-2-2) mmol/L ABG Methemoglobin (0-2) % David Test Hemoglobin (12.0-16.0) G/DL Carboxyhemoglobin (0-4) % O2 Delivery Device Vent Setting Inspired O2 % Critical Value POC Sodium (137-144) mmol/L Sodium (136-145) meq/L POC Potassium (3.6-5.0) mmol/L Potassium (3.5-5.1) meq/L POC Chloride (102-111) mmol/L Chloride (98-107) meq/L Carbon Dioxide (21.0-32.0) meq/L Anion Gap (5-15) meq/L POC BUN (5-21) mg/dL BUN (7-18) mg/dL Creatinine (0.60-1.30) mg/dL POC Creatinine (0.6-1.3) mg/dL Estimated GFR (>89) mL/min POC Glucose 255 H 240 H (68-110) mg/dL Random Glucose (74-106) mg/dL Hemoglobin A1c (4.3-6.0) % Lactic Acid (0.4-2.0) mmol/L Calcium (8.5-10.1) mg/dL Phosphorus (2.5-4.9) mg/dL Magnesium (1.5-2.5) mg/dL Total Bilirubin (0.2-1.0) mg/dL Direct Bilirubin (0.0-0.2) mg/dL Indirect Bilirubin (0.0-0.8) mg/dL AST (15-37) U/L ALT (12-78) U/L Alkaline Phosphatase (45-117) U/L Ammonia (11-32) mcmol/L Total Creatine Kinase (39-308) U/L CK-MB (CK-2) (0.5-3.6) ng/mL CK-MB (CK-2) % (0.0-4.0) % Troponin I (0.02-0.05) ng/mL Total Protein (6.4-8.2) g/dL Albumin (3.4-5.0) g/dL Triglycerides (42-150) mg/dL Cholesterol (120-200) mg/dL LDL Cholesterol, Calc (0-99) mg/dL HDL Cholesterol (40.0-60.0) mg/dL Cholesterol/HDL Ratio Ratio TSH (0.358-3.740) uIU/mL Free T4 (0.76-1.46) ng/dL Total T3 (60-181) ng/dL Cortisol mcg/dL Urine Color (Yellw/Straw) Urine Clarity (Clear) Urine pH (5.0-8.5) Ur Specific Bentley (1.002-1.035) Urine Protein (Neg-Trace) mg/dL Urine Glucose (UA) (Negative) mg/dL Urine Ketones (Negative) mg/dL Urine Occult Blood (Negative) Urine Nitrate (Negative) Urine Bilirubin (Negative) Urine Urobilinogen (Less than 2) mg/dL Ur Leukocyte Esterase (Negative) Urine RBC (0-3) /hpf Urine WBC (0-5) /hpf Ur Squamous Epith Cells (0-5) /hpf Urine Bacteria (None) /hpf Micro UA Comment Ur Microscopic Review Urine Culture Comments Nasal Screen MRSA (PCR) (Negative) Urine Opiates Screen Pos H (Neg) Ur Barbiturates Screen Neg (Neg) Phenytoin (10.0-20.0) mcg/mL Ur Amphetamines Screen Neg (Neg) Phenobarbital (15.0-40.0) mcg/mL U Benzodiazepines Scrn Pos H (Neg) Urine Cocaine Screen Neg (Neg) U Cannabinoids Screen Neg (Neg) Hepatitis A IgM Ab (Nonreactive) Hep Bs Antigen (Nonreactive) Hep B Core IgM Ab (Nonreactive) Hep C IgG Ab (Nonreactive) Blood Type Blood Type Recheck Antibody Screen 05/09/18 05/09/18 05/09/18 Range/Units 12:01 13:02 13:58 WBC (4.0-11.0) th/mm3 RBC (4.50-5.90) mil/mm3 Hgb (13.0-17.0) gm/dL POC Hgb (Calc) (13.0-17.0) g/dL Hct (39.0-51.0) % POC Hct (39-51.0) % MCV (80.0-100.0) fL MCH (27.0-34.0) pg MCHC (32.0-36.0) % RDW (11.6-17.2) % Plt Count (150-450) th/mm3 MPV (7.0-11.0) fL Prelim Diff (Auto) Neut % (Auto) (16.0-70.0) % Lymph % (Auto) (9.0-44.0) % Harper % (Auto) (0.0-8.0) % Eos % (Auto) (0.0-4.0) % Baso % (Auto) (0.0-2.0) % Neut # (Auto) (1.8-7.7) th/mm3 Lymph # (Auto) (1.0-4.8) th/mm3 Harper # (Auto) (0.0-0.9) th/mm3 Eos # (Auto) (0.0-0.4) th/mm3 Baso # (Auto) (0.0-0.2) th/mm3 WBC Differential Seg Neuts % (Manual) (16-70) % Lymphocytes % (Manual) (9-44) % Monocytes % (Manual) (0-8) % Eosinophils % (Manual) (0-4) % Abs Neuts (Manual) (1.8-7.7) th/mm3 Differential Comment Platelet Estimate (Normal) Platelet Morphology (Normal) RBC Morphology (Normal) PT (9.8-11.6) sec INR Ratio APTT (23.4-31.7) sec Puncture Site Patient Temperature O2 Saturation (90-100) % ABG pH (7.320-7.420) ABG pCO2 (38-42) mmHg ABG pO2 (60-120) mmHg ABG HCO3 (22-26) mmol/L ABG O2 Content (12.0-20.0) Vol % ABG Base Excess (-2-2) mmol/L ABG Methemoglobin (0-2) % David Test Hemoglobin (12.0-16.0) G/DL Carboxyhemoglobin (0-4) % O2 Delivery Device Vent Setting Inspired O2 % Critical Value POC Sodium (137-144) mmol/L Sodium (136-145) meq/L POC Potassium (3.6-5.0) mmol/L Potassium (3.5-5.1) meq/L POC Chloride (102-111) mmol/L Chloride (98-107) meq/L Carbon Dioxide (21.0-32.0) meq/L Anion Gap (5-15) meq/L POC BUN (5-21) mg/dL BUN (7-18) mg/dL Creatinine (0.60-1.30) mg/dL POC Creatinine (0.6-1.3) mg/dL Estimated GFR (>89) mL/min POC Glucose 234 H 197 H 209 H (68-110) mg/dL Random Glucose (74-106) mg/dL Hemoglobin A1c (4.3-6.0) % Lactic Acid (0.4-2.0) mmol/L Calcium (8.5-10.1) mg/dL Phosphorus (2.5-4.9) mg/dL Magnesium (1.5-2.5) mg/dL Total Bilirubin (0.2-1.0) mg/dL Direct Bilirubin (0.0-0.2) mg/dL Indirect Bilirubin (0.0-0.8) mg/dL AST (15-37) U/L ALT (12-78) U/L Alkaline Phosphatase (45-117) U/L Ammonia (11-32) mcmol/L Total Creatine Kinase (39-308) U/L CK-MB (CK-2) (0.5-3.6) ng/mL CK-MB (CK-2) % (0.0-4.0) % Troponin I (0.02-0.05) ng/mL Total Protein (6.4-8.2) g/dL Albumin (3.4-5.0) g/dL Triglycerides (42-150) mg/dL Cholesterol (120-200) mg/dL LDL Cholesterol, Calc (0-99) mg/dL HDL Cholesterol (40.0-60.0) mg/dL Cholesterol/HDL Ratio Ratio TSH (0.358-3.740) uIU/mL Free T4 (0.76-1.46) ng/dL Total T3 (60-181) ng/dL Cortisol mcg/dL Urine Color (Yellw/Straw) Urine Clarity (Clear) Urine pH (5.0-8.5) Ur Specific Bentley (1.002-1.035) Urine Protein (Neg-Trace) mg/dL Urine Glucose (UA) (Negative) mg/dL Urine Ketones (Negative) mg/dL Urine Occult Blood (Negative) Urine Nitrate (Negative) Urine Bilirubin (Negative) Urine Urobilinogen (Less than 2) mg/dL Ur Leukocyte Esterase (Negative) Urine RBC (0-3) /hpf Urine WBC (0-5) /hpf Ur Squamous Epith Cells (0-5) /hpf Urine Bacteria (None) /hpf Micro UA Comment Ur Microscopic Review Urine Culture Comments Nasal Screen MRSA (PCR) (Negative) Urine Opiates Screen (Neg) Ur Barbiturates Screen (Neg) Phenytoin (10.0-20.0) mcg/mL Ur Amphetamines Screen (Neg) Phenobarbital (15.0-40.0) mcg/mL U Benzodiazepines Scrn (Neg) Urine Cocaine Screen (Neg) U Cannabinoids Screen (Neg) Hepatitis A IgM Ab (Nonreactive) Hep Bs Antigen (Nonreactive) Hep B Core IgM Ab (Nonreactive) Hep C IgG Ab (Nonreactive) Blood Type Blood Type Recheck Antibody Screen 05/09/18 05/09/18 05/09/18 Range/Units 14:52 14:58 14:58 WBC (4.0-11.0) th/mm3 RBC (4.50-5.90) mil/mm3 Hgb (13.0-17.0) gm/dL POC Hgb (Calc) (13.0-17.0) g/dL Hct (39.0-51.0) % POC Hct (39-51.0) % MCV (80.0-100.0) fL MCH (27.0-34.0) pg MCHC (32.0-36.0) % RDW (11.6-17.2) % Plt Count (150-450) th/mm3 MPV (7.0-11.0) fL Prelim Diff (Auto) Neut % (Auto) (16.0-70.0) % Lymph % (Auto) (9.0-44.0) % Harper % (Auto) (0.0-8.0) % Eos % (Auto) (0.0-4.0) % Baso % (Auto) (0.0-2.0) % Neut # (Auto) (1.8-7.7) th/mm3 Lymph # (Auto) (1.0-4.8) th/mm3 Harper # (Auto) (0.0-0.9) th/mm3 Eos # (Auto) (0.0-0.4) th/mm3 Baso # (Auto) (0.0-0.2) th/mm3 WBC Differential Seg Neuts % (Manual) (16-70) % Lymphocytes % (Manual) (9-44) % Monocytes % (Manual) (0-8) % Eosinophils % (Manual) (0-4) % Abs Neuts (Manual) (1.8-7.7) th/mm3 Differential Comment Platelet Estimate (Normal) Platelet Morphology (Normal) RBC Morphology (Normal) PT (9.8-11.6) sec INR Ratio APTT (23.4-31.7) sec Puncture Site Patient Temperature O2 Saturation (90-100) % ABG pH (7.320-7.420) ABG pCO2 (38-42) mmHg ABG pO2 (60-120) mmHg ABG HCO3 (22-26) mmol/L ABG O2 Content (12.0-20.0) Vol % ABG Base Excess (-2-2) mmol/L ABG Methemoglobin (0-2) % David Test Hemoglobin (12.0-16.0) G/DL Carboxyhemoglobin (0-4) % O2 Delivery Device Vent Setting Inspired O2 % Critical Value POC Sodium (137-144) mmol/L Sodium 140 (136-145) meq/L POC Potassium (3.6-5.0) mmol/L Potassium 3.6 D (3.5-5.1) meq/L POC Chloride (102-111) mmol/L Chloride 107 (98-107) meq/L Carbon Dioxide 22.6 (21.0-32.0) meq/L Anion Gap 10 (5-15) meq/L POC BUN (5-21) mg/dL BUN 11 (7-18) mg/dL Creatinine 0.71 (0.60-1.30) mg/dL POC Creatinine (0.6-1.3) mg/dL Estimated GFR Greater than 89 (>89) mL/min POC Glucose 213 H (68-110) mg/dL Random Glucose 220 H (74-106) mg/dL Hemoglobin A1c (4.3-6.0) % Lactic Acid (0.4-2.0) mmol/L Calcium 8.3 L (8.5-10.1) mg/dL Phosphorus (2.5-4.9) mg/dL Magnesium 2.2 (1.5-2.5) mg/dL Total Bilirubin (0.2-1.0) mg/dL Direct Bilirubin (0.0-0.2) mg/dL Indirect Bilirubin (0.0-0.8) mg/dL AST (15-37) U/L ALT (12-78) U/L Alkaline Phosphatase (45-117) U/L Ammonia (11-32) mcmol/L Total Creatine Kinase 1274 H (39-308) U/L CK-MB (CK-2) 269.5 H (0.5-3.6) ng/mL CK-MB (CK-2) % 21.2 H* (0.0-4.0) % Troponin I 10.90 H* (0.02-0.05) ng/mL Total Protein (6.4-8.2) g/dL Albumin (3.4-5.0) g/dL Triglycerides 89 (42-150) mg/dL Cholesterol 129 (120-200) mg/dL LDL Cholesterol, Calc 61 (0-99) mg/dL HDL Cholesterol 50.7 (40.0-60.0) mg/dL Cholesterol/HDL Ratio 2.54 Ratio TSH (0.358-3.740) uIU/mL Free T4 (0.76-1.46) ng/dL Total T3 (60-181) ng/dL Cortisol mcg/dL Urine Color (Yellw/Straw) Urine Clarity (Clear) Urine pH (5.0-8.5) Ur Specific Bentley (1.002-1.035) Urine Protein (Neg-Trace) mg/dL Urine Glucose (UA) (Negative) mg/dL Urine Ketones (Negative) mg/dL Urine Occult Blood (Negative) Urine Nitrate (Negative) Urine Bilirubin (Negative) Urine Urobilinogen (Less than 2) mg/dL Ur Leukocyte Esterase (Negative) Urine RBC (0-3) /hpf Urine WBC (0-5) /hpf Ur Squamous Epith Cells (0-5) /hpf Urine Bacteria (None) /hpf Micro UA Comment Ur Microscopic Review Urine Culture Comments Nasal Screen MRSA (PCR) (Negative) Urine Opiates Screen (Neg) Ur Barbiturates Screen (Neg) Phenytoin (10.0-20.0) mcg/mL Ur Amphetamines Screen (Neg) Phenobarbital (15.0-40.0) mcg/mL U Benzodiazepines Scrn (Neg) Urine Cocaine Screen (Neg) U Cannabinoids Screen (Neg) Hepatitis A IgM Ab Nonreactive (Nonreactive) Hep Bs Antigen Nonreactive (Nonreactive) Hep B Core IgM Ab Nonreactive (Nonreactive) Hep C IgG Ab Nonreactive (Nonreactive) Blood Type Blood Type Recheck Antibody Screen 05/09/18 05/09/18 05/09/18 Range/Units 14:58 14:58 16:00 WBC (4.0-11.0) th/mm3 RBC (4.50-5.90) mil/mm3 Hgb (13.0-17.0) gm/dL POC Hgb (Calc) (13.0-17.0) g/dL Hct (39.0-51.0) % POC Hct (39-51.0) % MCV (80.0-100.0) fL MCH (27.0-34.0) pg MCHC (32.0-36.0) % RDW (11.6-17.2) % Plt Count (150-450) th/mm3 MPV (7.0-11.0) fL Prelim Diff (Auto) Neut % (Auto) (16.0-70.0) % Lymph % (Auto) (9.0-44.0) % Harper % (Auto) (0.0-8.0) % Eos % (Auto) (0.0-4.0) % Baso % (Auto) (0.0-2.0) % Neut # (Auto) (1.8-7.7) th/mm3 Lymph # (Auto) (1.0-4.8) th/mm3 Harper # (Auto) (0.0-0.9) th/mm3 Eos # (Auto) (0.0-0.4) th/mm3 Baso # (Auto) (0.0-0.2) th/mm3 WBC Differential Seg Neuts % (Manual) (16-70) % Lymphocytes % (Manual) (9-44) % Monocytes % (Manual) (0-8) % Eosinophils % (Manual) (0-4) % Abs Neuts (Manual) (1.8-7.7) th/mm3 Differential Comment Platelet Estimate (Normal) Platelet Morphology (Normal) RBC Morphology (Normal) PT (9.8-11.6) sec INR Ratio APTT (23.4-31.7) sec Puncture Site Patient Temperature O2 Saturation (90-100) % ABG pH (7.320-7.420) ABG pCO2 (38-42) mmHg ABG pO2 (60-120) mmHg ABG HCO3 (22-26) mmol/L ABG O2 Content (12.0-20.0) Vol % ABG Base Excess (-2-2) mmol/L ABG Methemoglobin (0-2) % David Test Hemoglobin (12.0-16.0) G/DL Carboxyhemoglobin (0-4) % O2 Delivery Device Vent Setting Inspired O2 % Critical Value POC Sodium (137-144) mmol/L Sodium (136-145) meq/L POC Potassium (3.6-5.0) mmol/L Potassium (3.5-5.1) meq/L POC Chloride (102-111) mmol/L Chloride (98-107) meq/L Carbon Dioxide (21.0-32.0) meq/L Anion Gap (5-15) meq/L POC BUN (5-21) mg/dL BUN (7-18) mg/dL Creatinine (0.60-1.30) mg/dL POC Creatinine (0.6-1.3) mg/dL Estimated GFR (>89) mL/min POC Glucose 201 H (68-110) mg/dL Random Glucose (74-106) mg/dL Hemoglobin A1c 6.5 H (4.3-6.0) % Lactic Acid (0.4-2.0) mmol/L Calcium (8.5-10.1) mg/dL Phosphorus (2.5-4.9) mg/dL Magnesium (1.5-2.5) mg/dL Total Bilirubin (0.2-1.0) mg/dL Direct Bilirubin (0.0-0.2) mg/dL Indirect Bilirubin (0.0-0.8) mg/dL AST (15-37) U/L ALT (12-78) U/L Alkaline Phosphatase (45-117) U/L Ammonia (11-32) mcmol/L Total Creatine Kinase (39-308) U/L CK-MB (CK-2) (0.5-3.6) ng/mL CK-MB (CK-2) % (0.0-4.0) % Troponin I Cancelled (0.02-0.05) ng/mL Total Protein (6.4-8.2) g/dL Albumin (3.4-5.0) g/dL Triglycerides Cancelled (42-150) mg/dL Cholesterol Cancelled (120-200) mg/dL LDL Cholesterol, Calc Cancelled (0-99) mg/dL HDL Cholesterol Cancelled (40.0-60.0) mg/dL Cholesterol/HDL Ratio Cancelled Ratio TSH (0.358-3.740) uIU/mL Free T4 (0.76-1.46) ng/dL Total T3 (60-181) ng/dL Cortisol mcg/dL Urine Color (Yellw/Straw) Urine Clarity (Clear) Urine pH (5.0-8.5) Ur Specific Bentley (1.002-1.035) Urine Protein (Neg-Trace) mg/dL Urine Glucose (UA) (Negative) mg/dL Urine Ketones (Negative) mg/dL Urine Occult Blood (Negative) Urine Nitrate (Negative) Urine Bilirubin (Negative) Urine Urobilinogen (Less than 2) mg/dL Ur Leukocyte Esterase (Negative) Urine RBC (0-3) /hpf Urine WBC (0-5) /hpf Ur Squamous Epith Cells (0-5) /hpf Urine Bacteria (None) /hpf Micro UA Comment Ur Microscopic Review Urine Culture Comments Nasal Screen MRSA (PCR) (Negative) Urine Opiates Screen (Neg) Ur Barbiturates Screen (Neg) Phenytoin (10.0-20.0) mcg/mL Ur Amphetamines Screen (Neg) Phenobarbital (15.0-40.0) mcg/mL U Benzodiazepines Scrn (Neg) Urine Cocaine Screen (Neg) U Cannabinoids Screen (Neg) Hepatitis A IgM Ab (Nonreactive) Hep Bs Antigen (Nonreactive) Hep B Core IgM Ab (Nonreactive) Hep C IgG Ab (Nonreactive) Blood Type Blood Type Recheck Antibody Screen 05/09/18 05/09/18 05/09/18 Range/Units 16:59 17:45 18:04 WBC (4.0-11.0) th/mm3 RBC (4.50-5.90) mil/mm3 Hgb (13.0-17.0) gm/dL POC Hgb (Calc) (13.0-17.0) g/dL Hct (39.0-51.0) % POC Hct (39-51.0) % MCV (80.0-100.0) fL MCH (27.0-34.0) pg MCHC (32.0-36.0) % RDW (11.6-17.2) % Plt Count (150-450) th/mm3 MPV (7.0-11.0) fL Prelim Diff (Auto) Neut % (Auto) (16.0-70.0) % Lymph % (Auto) (9.0-44.0) % Harper % (Auto) (0.0-8.0) % Eos % (Auto) (0.0-4.0) % Baso % (Auto) (0.0-2.0) % Neut # (Auto) (1.8-7.7) th/mm3 Lymph # (Auto) (1.0-4.8) th/mm3 Harper # (Auto) (0.0-0.9) th/mm3 Eos # (Auto) (0.0-0.4) th/mm3 Baso # (Auto) (0.0-0.2) th/mm3 WBC Differential Seg Neuts % (Manual) (16-70) % Lymphocytes % (Manual) (9-44) % Monocytes % (Manual) (0-8) % Eosinophils % (Manual) (0-4) % Abs Neuts (Manual) (1.8-7.7) th/mm3 Differential Comment Platelet Estimate (Normal) Platelet Morphology (Normal) RBC Morphology (Normal) PT (9.8-11.6) sec INR Ratio APTT (23.4-31.7) sec Puncture Site Patient Temperature O2 Saturation (90-100) % ABG pH (7.320-7.420) ABG pCO2 (38-42) mmHg ABG pO2 (60-120) mmHg ABG HCO3 (22-26) mmol/L ABG O2 Content (12.0-20.0) Vol % ABG Base Excess (-2-2) mmol/L ABG Methemoglobin (0-2) % David Test Hemoglobin (12.0-16.0) G/DL Carboxyhemoglobin (0-4) % O2 Delivery Device Vent Setting Inspired O2 % Critical Value POC Sodium (137-144) mmol/L Sodium (136-145) meq/L POC Potassium (3.6-5.0) mmol/L Potassium (3.5-5.1) meq/L POC Chloride (102-111) mmol/L Chloride (98-107) meq/L Carbon Dioxide (21.0-32.0) meq/L Anion Gap (5-15) meq/L POC BUN (5-21) mg/dL BUN (7-18) mg/dL Creatinine (0.60-1.30) mg/dL POC Creatinine (0.6-1.3) mg/dL Estimated GFR (>89) mL/min POC Glucose 163 H 180 H (68-110) mg/dL Random Glucose (74-106) mg/dL Hemoglobin A1c (4.3-6.0) % Lactic Acid 2.4 H (0.4-2.0) mmol/L Calcium (8.5-10.1) mg/dL Phosphorus (2.5-4.9) mg/dL Magnesium (1.5-2.5) mg/dL Total Bilirubin (0.2-1.0) mg/dL Direct Bilirubin (0.0-0.2) mg/dL Indirect Bilirubin (0.0-0.8) mg/dL AST (15-37) U/L ALT (12-78) U/L Alkaline Phosphatase (45-117) U/L Ammonia (11-32) mcmol/L Total Creatine Kinase (39-308) U/L CK-MB (CK-2) (0.5-3.6) ng/mL CK-MB (CK-2) % (0.0-4.0) % Troponin I (0.02-0.05) ng/mL Total Protein (6.4-8.2) g/dL Albumin (3.4-5.0) g/dL Triglycerides (42-150) mg/dL Cholesterol (120-200) mg/dL LDL Cholesterol, Calc (0-99) mg/dL HDL Cholesterol (40.0-60.0) mg/dL Cholesterol/HDL Ratio Ratio TSH (0.358-3.740) uIU/mL Free T4 (0.76-1.46) ng/dL Total T3 (60-181) ng/dL Cortisol mcg/dL Urine Color (Yellw/Straw) Urine Clarity (Clear) Urine pH (5.0-8.5) Ur Specific Bentley (1.002-1.035) Urine Protein (Neg-Trace) mg/dL Urine Glucose (UA) (Negative) mg/dL Urine Ketones (Negative) mg/dL Urine Occult Blood (Negative) Urine Nitrate (Negative) Urine Bilirubin (Negative) Urine Urobilinogen (Less than 2) mg/dL Ur Leukocyte Esterase (Negative) Urine RBC (0-3) /hpf Urine WBC (0-5) /hpf Ur Squamous Epith Cells (0-5) /hpf Urine Bacteria (None) /hpf Micro UA Comment Ur Microscopic Review Urine Culture Comments Nasal Screen MRSA (PCR) (Negative) Urine Opiates Screen (Neg) Ur Barbiturates Screen (Neg) Phenytoin (10.0-20.0) mcg/mL Ur Amphetamines Screen (Neg) Phenobarbital (15.0-40.0) mcg/mL U Benzodiazepines Scrn (Neg) Urine Cocaine Screen (Neg) U Cannabinoids Screen (Neg) Hepatitis A IgM Ab (Nonreactive) Hep Bs Antigen (Nonreactive) Hep B Core IgM Ab (Nonreactive) Hep C IgG Ab (Nonreactive) Blood Type Blood Type Recheck Antibody Screen 05/09/18 05/09/18 05/09/18 Range/Units 18:53 19:57 19:59 WBC (4.0-11.0) th/mm3 RBC (4.50-5.90) mil/mm3 Hgb (13.0-17.0) gm/dL POC Hgb (Calc) (13.0-17.0) g/dL Hct (39.0-51.0) % POC Hct (39-51.0) % MCV (80.0-100.0) fL MCH (27.0-34.0) pg MCHC (32.0-36.0) % RDW (11.6-17.2) % Plt Count (150-450) th/mm3 MPV (7.0-11.0) fL Prelim Diff (Auto) Neut % (Auto) (16.0-70.0) % Lymph % (Auto) (9.0-44.0) % Harper % (Auto) (0.0-8.0) % Eos % (Auto) (0.0-4.0) % Baso % (Auto) (0.0-2.0) % Neut # (Auto) (1.8-7.7) th/mm3 Lymph # (Auto) (1.0-4.8) th/mm3 Harper # (Auto) (0.0-0.9) th/mm3 Eos # (Auto) (0.0-0.4) th/mm3 Baso # (Auto) (0.0-0.2) th/mm3 WBC Differential Seg Neuts % (Manual) (16-70) % Lymphocytes % (Manual) (9-44) % Monocytes % (Manual) (0-8) % Eosinophils % (Manual) (0-4) % Abs Neuts (Manual) (1.8-7.7) th/mm3 Differential Comment Platelet Estimate (Normal) Platelet Morphology (Normal) RBC Morphology (Normal) PT (9.8-11.6) sec INR Ratio APTT (23.4-31.7) sec Puncture Site Art line Patient Temperature 93.2 O2 Saturation 97 (90-100) % ABG pH 7.49 H (7.320-7.420) ABG pCO2 24 L* (38-42) mmHg ABG pO2 140 H (60-120) mmHg ABG HCO3 19 L (22-26) mmol/L ABG O2 Content 19.9 (12.0-20.0) Vol % ABG Base Excess -4.3 L (-2-2) mmol/L ABG Methemoglobin 1.3 (0-2) % David Test Hemoglobin 14.4 (12.0-16.0) G/DL Carboxyhemoglobin 0.5 (0-4) % O2 Delivery Device Ventilator Vent Setting Prvc/ac Inspired O2 40 % Critical Value Yes POC Sodium (137-144) mmol/L Sodium (136-145) meq/L POC Potassium (3.6-5.0) mmol/L Potassium (3.5-5.1) meq/L POC Chloride (102-111) mmol/L Chloride (98-107) meq/L Carbon Dioxide (21.0-32.0) meq/L Anion Gap (5-15) meq/L POC BUN (5-21) mg/dL BUN (7-18) mg/dL Creatinine (0.60-1.30) mg/dL POC Creatinine (0.6-1.3) mg/dL Estimated GFR (>89) mL/min POC Glucose 162 H 151 H (68-110) mg/dL Random Glucose (74-106) mg/dL Hemoglobin A1c (4.3-6.0) % Lactic Acid (0.4-2.0) mmol/L Calcium (8.5-10.1) mg/dL Phosphorus (2.5-4.9) mg/dL Magnesium (1.5-2.5) mg/dL Total Bilirubin (0.2-1.0) mg/dL Direct Bilirubin (0.0-0.2) mg/dL Indirect Bilirubin (0.0-0.8) mg/dL AST (15-37) U/L ALT (12-78) U/L Alkaline Phosphatase (45-117) U/L Ammonia (11-32) mcmol/L Total Creatine Kinase (39-308) U/L CK-MB (CK-2) (0.5-3.6) ng/mL CK-MB (CK-2) % (0.0-4.0) % Troponin I (0.02-0.05) ng/mL Total Protein (6.4-8.2) g/dL Albumin (3.4-5.0) g/dL Triglycerides (42-150) mg/dL Cholesterol (120-200) mg/dL LDL Cholesterol, Calc (0-99) mg/dL HDL Cholesterol (40.0-60.0) mg/dL Cholesterol/HDL Ratio Ratio TSH (0.358-3.740) uIU/mL Free T4 (0.76-1.46) ng/dL Total T3 (60-181) ng/dL Cortisol mcg/dL Urine Color (Yellw/Straw) Urine Clarity (Clear) Urine pH (5.0-8.5) Ur Specific Bentley (1.002-1.035) Urine Protein (Neg-Trace) mg/dL Urine Glucose (UA) (Negative) mg/dL Urine Ketones (Negative) mg/dL Urine Occult Blood (Negative) Urine Nitrate (Negative) Urine Bilirubin (Negative) Urine Urobilinogen (Less than 2) mg/dL Ur Leukocyte Esterase (Negative) Urine RBC (0-3) /hpf Urine WBC (0-5) /hpf Ur Squamous Epith Cells (0-5) /hpf Urine Bacteria (None) /hpf Micro UA Comment Ur Microscopic Review Urine Culture Comments Nasal Screen MRSA (PCR) (Negative) Urine Opiates Screen (Neg) Ur Barbiturates Screen (Neg) Phenytoin (10.0-20.0) mcg/mL Ur Amphetamines Screen (Neg) Phenobarbital (15.0-40.0) mcg/mL U Benzodiazepines Scrn (Neg) Urine Cocaine Screen (Neg) U Cannabinoids Screen (Neg) Hepatitis A IgM Ab (Nonreactive) Hep Bs Antigen (Nonreactive) Hep B Core IgM Ab (Nonreactive) Hep C IgG Ab (Nonreactive) Blood Type Blood Type Recheck Antibody Screen 05/09/18 05/09/18 05/09/18 Range/Units 20:00 20:57 22:01 WBC (4.0-11.0) th/mm3 RBC (4.50-5.90) mil/mm3 Hgb (13.0-17.0) gm/dL POC Hgb (Calc) (13.0-17.0) g/dL Hct (39.0-51.0) % POC Hct (39-51.0) % MCV (80.0-100.0) fL MCH (27.0-34.0) pg MCHC (32.0-36.0) % RDW (11.6-17.2) % Plt Count (150-450) th/mm3 MPV (7.0-11.0) fL Prelim Diff (Auto) Neut % (Auto) (16.0-70.0) % Lymph % (Auto) (9.0-44.0) % Harper % (Auto) (0.0-8.0) % Eos % (Auto) (0.0-4.0) % Baso % (Auto) (0.0-2.0) % Neut # (Auto) (1.8-7.7) th/mm3 Lymph # (Auto) (1.0-4.8) th/mm3 Harper # (Auto) (0.0-0.9) th/mm3 Eos # (Auto) (0.0-0.4) th/mm3 Baso # (Auto) (0.0-0.2) th/mm3 WBC Differential Seg Neuts % (Manual) (16-70) % Lymphocytes % (Manual) (9-44) % Monocytes % (Manual) (0-8) % Eosinophils % (Manual) (0-4) % Abs Neuts (Manual) (1.8-7.7) th/mm3 Differential Comment Platelet Estimate (Normal) Platelet Morphology (Normal) RBC Morphology (Normal) PT (9.8-11.6) sec INR Ratio APTT (23.4-31.7) sec Puncture Site Patient Temperature O2 Saturation (90-100) % ABG pH (7.320-7.420) ABG pCO2 (38-42) mmHg ABG pO2 (60-120) mmHg ABG HCO3 (22-26) mmol/L ABG O2 Content (12.0-20.0) Vol % ABG Base Excess (-2-2) mmol/L ABG Methemoglobin (0-2) % David Test Hemoglobin (12.0-16.0) G/DL Carboxyhemoglobin (0-4) % O2 Delivery Device Vent Setting Inspired O2 % Critical Value POC Sodium (137-144) mmol/L Sodium 141 (136-145) meq/L POC Potassium (3.6-5.0) mmol/L Potassium 3.3 L (3.5-5.1) meq/L POC Chloride (102-111) mmol/L Chloride 109 H (98-107) meq/L Carbon Dioxide 22.2 (21.0-32.0) meq/L Anion Gap 10 (5-15) meq/L POC BUN (5-21) mg/dL BUN 11 (7-18) mg/dL Creatinine 0.68 (0.60-1.30) mg/dL POC Creatinine (0.6-1.3) mg/dL Estimated GFR Greater than 89 (>89) mL/min POC Glucose 150 H 142 H (68-110) mg/dL Random Glucose 179 H (74-106) mg/dL Hemoglobin A1c (4.3-6.0) % Lactic Acid (0.4-2.0) mmol/L Calcium 8.3 L (8.5-10.1) mg/dL Phosphorus 2.1 L (2.5-4.9) mg/dL Magnesium 2.0 (1.5-2.5) mg/dL Total Bilirubin (0.2-1.0) mg/dL Direct Bilirubin (0.0-0.2) mg/dL Indirect Bilirubin (0.0-0.8) mg/dL AST (15-37) U/L ALT (12-78) U/L Alkaline Phosphatase (45-117) U/L Ammonia (11-32) mcmol/L Total Creatine Kinase (39-308) U/L CK-MB (CK-2) (0.5-3.6) ng/mL CK-MB (CK-2) % (0.0-4.0) % Troponin I (0.02-0.05) ng/mL Total Protein (6.4-8.2) g/dL Albumin (3.4-5.0) g/dL Triglycerides (42-150) mg/dL Cholesterol (120-200) mg/dL LDL Cholesterol, Calc (0-99) mg/dL HDL Cholesterol (40.0-60.0) mg/dL Cholesterol/HDL Ratio Ratio TSH (0.358-3.740) uIU/mL Free T4 (0.76-1.46) ng/dL Total T3 (60-181) ng/dL Cortisol mcg/dL Urine Color (Yellw/Straw) Urine Clarity (Clear) Urine pH (5.0-8.5) Ur Specific Bentley (1.002-1.035) Urine Protein (Neg-Trace) mg/dL Urine Glucose (UA) (Negative) mg/dL Urine Ketones (Negative) mg/dL Urine Occult Blood (Negative) Urine Nitrate (Negative) Urine Bilirubin (Negative) Urine Urobilinogen (Less than 2) mg/dL Ur Leukocyte Esterase (Negative) Urine RBC (0-3) /hpf Urine WBC (0-5) /hpf Ur Squamous Epith Cells (0-5) /hpf Urine Bacteria (None) /hpf Micro UA Comment Ur Microscopic Review Urine Culture Comments Nasal Screen MRSA (PCR) (Negative) Urine Opiates Screen (Neg) Ur Barbiturates Screen (Neg) Phenytoin (10.0-20.0) mcg/mL Ur Amphetamines Screen (Neg) Phenobarbital (15.0-40.0) mcg/mL U Benzodiazepines Scrn (Neg) Urine Cocaine Screen (Neg) U Cannabinoids Screen (Neg) Hepatitis A IgM Ab (Nonreactive) Hep Bs Antigen (Nonreactive) Hep B Core IgM Ab (Nonreactive) Hep C IgG Ab (Nonreactive) Blood Type Blood Type Recheck Antibody Screen 05/09/18 05/10/18 05/10/18 Range/Units 23:14 00:14 00:30 WBC (4.0-11.0) th/mm3 RBC (4.50-5.90) mil/mm3 Hgb (13.0-17.0) gm/dL POC Hgb (Calc) (13.0-17.0) g/dL Hct (39.0-51.0) % POC Hct (39-51.0) % MCV (80.0-100.0) fL MCH (27.0-34.0) pg MCHC (32.0-36.0) % RDW (11.6-17.2) % Plt Count (150-450) th/mm3 MPV (7.0-11.0) fL Prelim Diff (Auto) Neut % (Auto) (16.0-70.0) % Lymph % (Auto) (9.0-44.0) % Harper % (Auto) (0.0-8.0) % Eos % (Auto) (0.0-4.0) % Baso % (Auto) (0.0-2.0) % Neut # (Auto) (1.8-7.7) th/mm3 Lymph # (Auto) (1.0-4.8) th/mm3 Harper # (Auto) (0.0-0.9) th/mm3 Eos # (Auto) (0.0-0.4) th/mm3 Baso # (Auto) (0.0-0.2) th/mm3 WBC Differential Seg Neuts % (Manual) (16-70) % Lymphocytes % (Manual) (9-44) % Monocytes % (Manual) (0-8) % Eosinophils % (Manual) (0-4) % Abs Neuts (Manual) (1.8-7.7) th/mm3 Differential Comment Platelet Estimate (Normal) Platelet Morphology (Normal) RBC Morphology (Normal) PT (9.8-11.6) sec INR Ratio APTT (23.4-31.7) sec Puncture Site Patient Temperature O2 Saturation (90-100) % ABG pH (7.320-7.420) ABG pCO2 (38-42) mmHg ABG pO2 (60-120) mmHg ABG HCO3 (22-26) mmol/L ABG O2 Content (12.0-20.0) Vol % ABG Base Excess (-2-2) mmol/L ABG Methemoglobin (0-2) % David Test Hemoglobin (12.0-16.0) G/DL Carboxyhemoglobin (0-4) % O2 Delivery Device Vent Setting Inspired O2 % Critical Value POC Sodium (137-144) mmol/L Sodium 141 (136-145) meq/L POC Potassium (3.6-5.0) mmol/L Potassium 3.2 L (3.5-5.1) meq/L POC Chloride (102-111) mmol/L Chloride 109 H (98-107) meq/L Carbon Dioxide 22.1 (21.0-32.0) meq/L Anion Gap 10 (5-15) meq/L POC BUN (5-21) mg/dL BUN 11 (7-18) mg/dL Creatinine 0.59 L (0.60-1.30) mg/dL POC Creatinine (0.6-1.3) mg/dL Estimated GFR Greater than 89 (>89) mL/min POC Glucose 137 H 152 H (68-110) mg/dL Random Glucose 164 H (74-106) mg/dL Hemoglobin A1c (4.3-6.0) % Lactic Acid (0.4-2.0) mmol/L Calcium 8.2 L (8.5-10.1) mg/dL Phosphorus (2.5-4.9) mg/dL Magnesium 2.0 (1.5-2.5) mg/dL Total Bilirubin (0.2-1.0) mg/dL Direct Bilirubin (0.0-0.2) mg/dL Indirect Bilirubin (0.0-0.8) mg/dL AST (15-37) U/L ALT (12-78) U/L Alkaline Phosphatase (45-117) U/L Ammonia (11-32) mcmol/L Total Creatine Kinase (39-308) U/L CK-MB (CK-2) (0.5-3.6) ng/mL CK-MB (CK-2) % (0.0-4.0) % Troponin I 28.20 H* (0.02-0.05) ng/mL Total Protein (6.4-8.2) g/dL Albumin (3.4-5.0) g/dL Triglycerides (42-150) mg/dL Cholesterol (120-200) mg/dL LDL Cholesterol, Calc (0-99) mg/dL HDL Cholesterol (40.0-60.0) mg/dL Cholesterol/HDL Ratio Ratio TSH 0.285 L (0.358-3.740) uIU/mL Free T4 (0.76-1.46) ng/dL Total T3 (60-181) ng/dL Cortisol mcg/dL Urine Color (Yellw/Straw) Urine Clarity (Clear) Urine pH (5.0-8.5) Ur Specific Bentley (1.002-1.035) Urine Protein (Neg-Trace) mg/dL Urine Glucose (UA) (Negative) mg/dL Urine Ketones (Negative) mg/dL Urine Occult Blood (Negative) Urine Nitrate (Negative) Urine Bilirubin (Negative) Urine Urobilinogen (Less than 2) mg/dL Ur Leukocyte Esterase (Negative) Urine RBC (0-3) /hpf Urine WBC (0-5) /hpf Ur Squamous Epith Cells (0-5) /hpf Urine Bacteria (None) /hpf Micro UA Comment Ur Microscopic Review Urine Culture Comments Nasal Screen MRSA (PCR) (Negative) Urine Opiates Screen (Neg) Ur Barbiturates Screen (Neg) Phenytoin (10.0-20.0) mcg/mL Ur Amphetamines Screen (Neg) Phenobarbital (15.0-40.0) mcg/mL U Benzodiazepines Scrn (Neg) Urine Cocaine Screen (Neg) U Cannabinoids Screen (Neg) Hepatitis A IgM Ab (Nonreactive) Hep Bs Antigen (Nonreactive) Hep B Core IgM Ab (Nonreactive) Hep C IgG Ab (Nonreactive) Blood Type Blood Type Recheck Antibody Screen 05/10/18 05/10/18 05/10/18 Range/Units 01:01 02:00 02:03 WBC (4.0-11.0) th/mm3 RBC (4.50-5.90) mil/mm3 Hgb (13.0-17.0) gm/dL POC Hgb (Calc) (13.0-17.0) g/dL Hct (39.0-51.0) % POC Hct (39-51.0) % MCV (80.0-100.0) fL MCH (27.0-34.0) pg MCHC (32.0-36.0) % RDW (11.6-17.2) % Plt Count (150-450) th/mm3 MPV (7.0-11.0) fL Prelim Diff (Auto) Neut % (Auto) (16.0-70.0) % Lymph % (Auto) (9.0-44.0) % Harper % (Auto) (0.0-8.0) % Eos % (Auto) (0.0-4.0) % Baso % (Auto) (0.0-2.0) % Neut # (Auto) (1.8-7.7) th/mm3 Lymph # (Auto) (1.0-4.8) th/mm3 Harper # (Auto) (0.0-0.9) th/mm3 Eos # (Auto) (0.0-0.4) th/mm3 Baso # (Auto) (0.0-0.2) th/mm3 WBC Differential Seg Neuts % (Manual) (16-70) % Lymphocytes % (Manual) (9-44) % Monocytes % (Manual) (0-8) % Eosinophils % (Manual) (0-4) % Abs Neuts (Manual) (1.8-7.7) th/mm3 Differential Comment Platelet Estimate (Normal) Platelet Morphology (Normal) RBC Morphology (Normal) PT (9.8-11.6) sec INR Ratio APTT (23.4-31.7) sec Puncture Site Patient Temperature O2 Saturation (90-100) % ABG pH (7.320-7.420) ABG pCO2 (38-42) mmHg ABG pO2 (60-120) mmHg ABG HCO3 (22-26) mmol/L ABG O2 Content (12.0-20.0) Vol % ABG Base Excess (-2-2) mmol/L ABG Methemoglobin (0-2) % David Test Hemoglobin (12.0-16.0) G/DL Carboxyhemoglobin (0-4) % O2 Delivery Device Vent Setting Inspired O2 % Critical Value POC Sodium (137-144) mmol/L Sodium 141 (136-145) meq/L POC Potassium (3.6-5.0) mmol/L Potassium 3.2 L (3.5-5.1) meq/L POC Chloride (102-111) mmol/L Chloride 110 H (98-107) meq/L Carbon Dioxide 22.4 (21.0-32.0) meq/L Anion Gap 9 (5-15) meq/L POC BUN (5-21) mg/dL BUN 11 (7-18) mg/dL Creatinine 0.54 L (0.60-1.30) mg/dL POC Creatinine (0.6-1.3) mg/dL Estimated GFR Greater than 89 (>89) mL/min POC Glucose 134 H 138 H (68-110) mg/dL Random Glucose 151 H (74-106) mg/dL Hemoglobin A1c (4.3-6.0) % Lactic Acid (0.4-2.0) mmol/L Calcium 7.8 L (8.5-10.1) mg/dL Phosphorus (2.5-4.9) mg/dL Magnesium 1.9 (1.5-2.5) mg/dL Total Bilirubin (0.2-1.0) mg/dL Direct Bilirubin (0.0-0.2) mg/dL Indirect Bilirubin (0.0-0.8) mg/dL AST (15-37) U/L ALT (12-78) U/L Alkaline Phosphatase (45-117) U/L Ammonia (11-32) mcmol/L Total Creatine Kinase (39-308) U/L CK-MB (CK-2) (0.5-3.6) ng/mL CK-MB (CK-2) % (0.0-4.0) % Troponin I (0.02-0.05) ng/mL Total Protein (6.4-8.2) g/dL Albumin (3.4-5.0) g/dL Triglycerides (42-150) mg/dL Cholesterol (120-200) mg/dL LDL Cholesterol, Calc (0-99) mg/dL HDL Cholesterol (40.0-60.0) mg/dL Cholesterol/HDL Ratio Ratio TSH (0.358-3.740) uIU/mL Free T4 (0.76-1.46) ng/dL Total T3 (60-181) ng/dL Cortisol mcg/dL Urine Color (Yellw/Straw) Urine Clarity (Clear) Urine pH (5.0-8.5) Ur Specific Bentley (1.002-1.035) Urine Protein (Neg-Trace) mg/dL Urine Glucose (UA) (Negative) mg/dL Urine Ketones (Negative) mg/dL Urine Occult Blood (Negative) Urine Nitrate (Negative) Urine Bilirubin (Negative) Urine Urobilinogen (Less than 2) mg/dL Ur Leukocyte Esterase (Negative) Urine RBC (0-3) /hpf Urine WBC (0-5) /hpf Ur Squamous Epith Cells (0-5) /hpf Urine Bacteria (None) /hpf Micro UA Comment Ur Microscopic Review Urine Culture Comments Nasal Screen MRSA (PCR) (Negative) Urine Opiates Screen (Neg) Ur Barbiturates Screen (Neg) Phenytoin (10.0-20.0) mcg/mL Ur Amphetamines Screen (Neg) Phenobarbital (15.0-40.0) mcg/mL U Benzodiazepines Scrn (Neg) Urine Cocaine Screen (Neg) U Cannabinoids Screen (Neg) Hepatitis A IgM Ab (Nonreactive) Hep Bs Antigen (Nonreactive) Hep B Core IgM Ab (Nonreactive) Hep C IgG Ab (Nonreactive) Blood Type Blood Type Recheck Antibody Screen 05/10/18 05/10/18 05/10/18 Range/Units 03:05 04:04 05:00 WBC 17.2 H (4.0-11.0) th/mm3 RBC 4.99 (4.50-5.90) mil/mm3 Hgb 14.3 (13.0-17.0) gm/dL POC Hgb (Calc) (13.0-17.0) g/dL Hct 42.0 (39.0-51.0) % POC Hct (39-51.0) % MCV 84.2 (80.0-100.0) fL MCH 28.7 (27.0-34.0) pg MCHC 34.0 (32.0-36.0) % RDW 14.2 (11.6-17.2) % Plt Count 216 (150-450) th/mm3 MPV 7.7 (7.0-11.0) fL Prelim Diff (Auto) Neut % (Auto) 93.8 H (16.0-70.0) % Lymph % (Auto) 2.8 L (9.0-44.0) % Harper % (Auto) 3.2 (0.0-8.0) % Eos % (Auto) 0.1 (0.0-4.0) % Baso % (Auto) 0.1 (0.0-2.0) % Neut # (Auto) 16.1 H (1.8-7.7) th/mm3 Lymph # (Auto) 0.5 L (1.0-4.8) th/mm3 Harper # (Auto) 0.6 (0.0-0.9) th/mm3 Eos # (Auto) 0.0 (0.0-0.4) th/mm3 Baso # (Auto) 0.0 (0.0-0.2) th/mm3 WBC Differential . Seg Neuts % (Manual) (16-70) % Lymphocytes % (Manual) (9-44) % Monocytes % (Manual) (0-8) % Eosinophils % (Manual) (0-4) % Abs Neuts (Manual) (1.8-7.7) th/mm3 Differential Comment Auto diff final Platelet Estimate (Normal) Platelet Morphology (Normal) RBC Morphology (Normal) PT (9.8-11.6) sec INR Ratio APTT (23.4-31.7) sec Puncture Site Patient Temperature O2 Saturation (90-100) % ABG pH (7.320-7.420) ABG pCO2 (38-42) mmHg ABG pO2 (60-120) mmHg ABG HCO3 (22-26) mmol/L ABG O2 Content (12.0-20.0) Vol % ABG Base Excess (-2-2) mmol/L ABG Methemoglobin (0-2) % David Test Hemoglobin (12.0-16.0) G/DL Carboxyhemoglobin (0-4) % O2 Delivery Device Vent Setting Inspired O2 % Critical Value POC Sodium (137-144) mmol/L Sodium (136-145) meq/L POC Potassium (3.6-5.0) mmol/L Potassium (3.5-5.1) meq/L POC Chloride (102-111) mmol/L Chloride (98-107) meq/L Carbon Dioxide (21.0-32.0) meq/L Anion Gap (5-15) meq/L POC BUN (5-21) mg/dL BUN (7-18) mg/dL Creatinine (0.60-1.30) mg/dL POC Creatinine (0.6-1.3) mg/dL Estimated GFR (>89) mL/min POC Glucose 130 H 123 H (68-110) mg/dL Random Glucose (74-106) mg/dL Hemoglobin A1c (4.3-6.0) % Lactic Acid (0.4-2.0) mmol/L Calcium (8.5-10.1) mg/dL Phosphorus (2.5-4.9) mg/dL Magnesium (1.5-2.5) mg/dL Total Bilirubin (0.2-1.0) mg/dL Direct Bilirubin (0.0-0.2) mg/dL Indirect Bilirubin (0.0-0.8) mg/dL AST (15-37) U/L ALT (12-78) U/L Alkaline Phosphatase (45-117) U/L Ammonia (11-32) mcmol/L Total Creatine Kinase (39-308) U/L CK-MB (CK-2) (0.5-3.6) ng/mL CK-MB (CK-2) % (0.0-4.0) % Troponin I (0.02-0.05) ng/mL Total Protein (6.4-8.2) g/dL Albumin (3.4-5.0) g/dL Triglycerides (42-150) mg/dL Cholesterol (120-200) mg/dL LDL Cholesterol, Calc (0-99) mg/dL HDL Cholesterol (40.0-60.0) mg/dL Cholesterol/HDL Ratio Ratio TSH (0.358-3.740) uIU/mL Free T4 (0.76-1.46) ng/dL Total T3 (60-181) ng/dL Cortisol mcg/dL Urine Color (Yellw/Straw) Urine Clarity (Clear) Urine pH (5.0-8.5) Ur Specific Bentley (1.002-1.035) Urine Protein (Neg-Trace) mg/dL Urine Glucose (UA) (Negative) mg/dL Urine Ketones (Negative) mg/dL Urine Occult Blood (Negative) Urine Nitrate (Negative) Urine Bilirubin (Negative) Urine Urobilinogen (Less than 2) mg/dL Ur Leukocyte Esterase (Negative) Urine RBC (0-3) /hpf Urine WBC (0-5) /hpf Ur Squamous Epith Cells (0-5) /hpf Urine Bacteria (None) /hpf Micro UA Comment Ur Microscopic Review Urine Culture Comments Nasal Screen MRSA (PCR) (Negative) Urine Opiates Screen (Neg) Ur Barbiturates Screen (Neg) Phenytoin (10.0-20.0) mcg/mL Ur Amphetamines Screen (Neg) Phenobarbital (15.0-40.0) mcg/mL U Benzodiazepines Scrn (Neg) Urine Cocaine Screen (Neg) U Cannabinoids Screen (Neg) Hepatitis A IgM Ab (Nonreactive) Hep Bs Antigen (Nonreactive) Hep B Core IgM Ab (Nonreactive) Hep C IgG Ab (Nonreactive) Blood Type Blood Type Recheck Antibody Screen 05/10/18 05/10/18 05/10/18 Range/Units 05:00 05:00 05:05 WBC (4.0-11.0) th/mm3 RBC (4.50-5.90) mil/mm3 Hgb (13.0-17.0) gm/dL POC Hgb (Calc) (13.0-17.0) g/dL Hct (39.0-51.0) % POC Hct (39-51.0) % MCV (80.0-100.0) fL MCH (27.0-34.0) pg MCHC (32.0-36.0) % RDW (11.6-17.2) % Plt Count (150-450) th/mm3 MPV (7.0-11.0) fL Prelim Diff (Auto) Neut % (Auto) (16.0-70.0) % Lymph % (Auto) (9.0-44.0) % Harper % (Auto) (0.0-8.0) % Eos % (Auto) (0.0-4.0) % Baso % (Auto) (0.0-2.0) % Neut # (Auto) (1.8-7.7) th/mm3 Lymph # (Auto) (1.0-4.8) th/mm3 Harper # (Auto) (0.0-0.9) th/mm3 Eos # (Auto) (0.0-0.4) th/mm3 Baso # (Auto) (0.0-0.2) th/mm3 WBC Differential Seg Neuts % (Manual) (16-70) % Lymphocytes % (Manual) (9-44) % Monocytes % (Manual) (0-8) % Eosinophils % (Manual) (0-4) % Abs Neuts (Manual) (1.8-7.7) th/mm3 Differential Comment Platelet Estimate (Normal) Platelet Morphology (Normal) RBC Morphology (Normal) PT 11.4 (9.8-11.6) sec INR 1.1 Ratio APTT 31.3 (23.4-31.7) sec Puncture Site Patient Temperature O2 Saturation (90-100) % ABG pH (7.320-7.420) ABG pCO2 (38-42) mmHg ABG pO2 (60-120) mmHg ABG HCO3 (22-26) mmol/L ABG O2 Content (12.0-20.0) Vol % ABG Base Excess (-2-2) mmol/L ABG Methemoglobin (0-2) % David Test Hemoglobin (12.0-16.0) G/DL Carboxyhemoglobin (0-4) % O2 Delivery Device Vent Setting Inspired O2 % Critical Value POC Sodium (137-144) mmol/L Sodium 142 (136-145) meq/L POC Potassium (3.6-5.0) mmol/L Potassium 3.1 L (3.5-5.1) meq/L POC Chloride (102-111) mmol/L Chloride 109 H (98-107) meq/L Carbon Dioxide 21.3 (21.0-32.0) meq/L Anion Gap 12 (5-15) meq/L POC BUN (5-21) mg/dL BUN 11 (7-18) mg/dL Creatinine 0.56 L (0.60-1.30) mg/dL POC Creatinine (0.6-1.3) mg/dL Estimated GFR Greater than 89 (>89) mL/min POC Glucose 115 H (68-110) mg/dL Random Glucose 138 H (74-106) mg/dL Hemoglobin A1c (4.3-6.0) % Lactic Acid (0.4-2.0) mmol/L Calcium 8.2 L (8.5-10.1) mg/dL Phosphorus 3.0 (2.5-4.9) mg/dL Magnesium 1.9 (1.5-2.5) mg/dL Total Bilirubin 0.6 (0.2-1.0) mg/dL Direct Bilirubin (0.0-0.2) mg/dL Indirect Bilirubin (0.0-0.8) mg/dL AST 228 H (15-37) U/L ALT 96 H (12-78) U/L Alkaline Phosphatase 63 (45-117) U/L Ammonia (11-32) mcmol/L Total Creatine Kinase 1376 H (39-308) U/L CK-MB (CK-2) 368.5 H (0.5-3.6) ng/mL CK-MB (CK-2) % 26.8 H* (0.0-4.0) % Troponin I 32.40 H* (0.02-0.05) ng/mL Total Protein 6.1 L D (6.4-8.2) g/dL Albumin 3.6 (3.4-5.0) g/dL Triglycerides (42-150) mg/dL Cholesterol (120-200) mg/dL LDL Cholesterol, Calc (0-99) mg/dL HDL Cholesterol (40.0-60.0) mg/dL Cholesterol/HDL Ratio Ratio TSH (0.358-3.740) uIU/mL Free T4 (0.76-1.46) ng/dL Total T3 (60-181) ng/dL Cortisol mcg/dL Urine Color (Yellw/Straw) Urine Clarity (Clear) Urine pH (5.0-8.5) Ur Specific Bentley (1.002-1.035) Urine Protein (Neg-Trace) mg/dL Urine Glucose (UA) (Negative) mg/dL Urine Ketones (Negative) mg/dL Urine Occult Blood (Negative) Urine Nitrate (Negative) Urine Bilirubin (Negative) Urine Urobilinogen (Less than 2) mg/dL Ur Leukocyte Esterase (Negative) Urine RBC (0-3) /hpf Urine WBC (0-5) /hpf Ur Squamous Epith Cells (0-5) /hpf Urine Bacteria (None) /hpf Micro UA Comment Ur Microscopic Review Urine Culture Comments Nasal Screen MRSA (PCR) (Negative) Urine Opiates Screen (Neg) Ur Barbiturates Screen (Neg) Phenytoin (10.0-20.0) mcg/mL Ur Amphetamines Screen (Neg) Phenobarbital (15.0-40.0) mcg/mL U Benzodiazepines Scrn (Neg) Urine Cocaine Screen (Neg) U Cannabinoids Screen (Neg) Hepatitis A IgM Ab (Nonreactive) Hep Bs Antigen (Nonreactive) Hep B Core IgM Ab (Nonreactive) Hep C IgG Ab (Nonreactive) Blood Type Blood Type Recheck Antibody Screen 05/10/18 05/10/18 05/10/18 Range/Units 06:01 06:46 06:53 WBC (4.0-11.0) th/mm3 RBC (4.50-5.90) mil/mm3 Hgb (13.0-17.0) gm/dL POC Hgb (Calc) (13.0-17.0) g/dL Hct (39.0-51.0) % POC Hct (39-51.0) % MCV (80.0-100.0) fL MCH (27.0-34.0) pg MCHC (32.0-36.0) % RDW (11.6-17.2) % Plt Count (150-450) th/mm3 MPV (7.0-11.0) fL Prelim Diff (Auto) Neut % (Auto) (16.0-70.0) % Lymph % (Auto) (9.0-44.0) % Harper % (Auto) (0.0-8.0) % Eos % (Auto) (0.0-4.0) % Baso % (Auto) (0.0-2.0) % Neut # (Auto) (1.8-7.7) th/mm3 Lymph # (Auto) (1.0-4.8) th/mm3 Harper # (Auto) (0.0-0.9) th/mm3 Eos # (Auto) (0.0-0.4) th/mm3 Baso # (Auto) (0.0-0.2) th/mm3 WBC Differential Seg Neuts % (Manual) (16-70) % Lymphocytes % (Manual) (9-44) % Monocytes % (Manual) (0-8) % Eosinophils % (Manual) (0-4) % Abs Neuts (Manual) (1.8-7.7) th/mm3 Differential Comment Platelet Estimate (Normal) Platelet Morphology (Normal) RBC Morphology (Normal) PT (9.8-11.6) sec INR Ratio APTT (23.4-31.7) sec Puncture Site Art line Patient Temperature 98.6 O2 Saturation 96 (90-100) % ABG pH 7.37 L (7.320-7.420) ABG pCO2 39 (38-42) mmHg ABG pO2 96 (60-120) mmHg ABG HCO3 22 (22-26) mmol/L ABG O2 Content 19.7 (12.0-20.0) Vol % ABG Base Excess -2.8 L (-2-2) mmol/L ABG Methemoglobin 1.3 (0-2) % David Test Hemoglobin 14.6 (12.0-16.0) G/DL Carboxyhemoglobin 0.5 (0-4) % O2 Delivery Device Ventilator Vent Setting Prvc/ac Inspired O2 40 % Critical Value No POC Sodium (137-144) mmol/L Sodium (136-145) meq/L POC Potassium (3.6-5.0) mmol/L Potassium (3.5-5.1) meq/L POC Chloride (102-111) mmol/L Chloride (98-107) meq/L Carbon Dioxide (21.0-32.0) meq/L Anion Gap (5-15) meq/L POC BUN (5-21) mg/dL BUN (7-18) mg/dL Creatinine (0.60-1.30) mg/dL POC Creatinine (0.6-1.3) mg/dL Estimated GFR (>89) mL/min POC Glucose 116 H 125 H (68-110) mg/dL Random Glucose (74-106) mg/dL Hemoglobin A1c (4.3-6.0) % Lactic Acid (0.4-2.0) mmol/L Calcium (8.5-10.1) mg/dL Phosphorus (2.5-4.9) mg/dL Magnesium (1.5-2.5) mg/dL Total Bilirubin (0.2-1.0) mg/dL Direct Bilirubin (0.0-0.2) mg/dL Indirect Bilirubin (0.0-0.8) mg/dL AST (15-37) U/L ALT (12-78) U/L Alkaline Phosphatase (45-117) U/L Ammonia (11-32) mcmol/L Total Creatine Kinase (39-308) U/L CK-MB (CK-2) (0.5-3.6) ng/mL CK-MB (CK-2) % (0.0-4.0) % Troponin I (0.02-0.05) ng/mL Total Protein (6.4-8.2) g/dL Albumin (3.4-5.0) g/dL Triglycerides (42-150) mg/dL Cholesterol (120-200) mg/dL LDL Cholesterol, Calc (0-99) mg/dL HDL Cholesterol (40.0-60.0) mg/dL Cholesterol/HDL Ratio Ratio TSH (0.358-3.740) uIU/mL Free T4 (0.76-1.46) ng/dL Total T3 (60-181) ng/dL Cortisol mcg/dL Urine Color (Yellw/Straw) Urine Clarity (Clear) Urine pH (5.0-8.5) Ur Specific Bentley (1.002-1.035) Urine Protein (Neg-Trace) mg/dL Urine Glucose (UA) (Negative) mg/dL Urine Ketones (Negative) mg/dL Urine Occult Blood (Negative) Urine Nitrate (Negative) Urine Bilirubin (Negative) Urine Urobilinogen (Less than 2) mg/dL Ur Leukocyte Esterase (Negative) Urine RBC (0-3) /hpf Urine WBC (0-5) /hpf Ur Squamous Epith Cells (0-5) /hpf Urine Bacteria (None) /hpf Micro UA Comment Ur Microscopic Review Urine Culture Comments Nasal Screen MRSA (PCR) (Negative) Urine Opiates Screen (Neg) Ur Barbiturates Screen (Neg) Phenytoin (10.0-20.0) mcg/mL Ur Amphetamines Screen (Neg) Phenobarbital (15.0-40.0) mcg/mL U Benzodiazepines Scrn (Neg) Urine Cocaine Screen (Neg) U Cannabinoids Screen (Neg) Hepatitis A IgM Ab (Nonreactive) Hep Bs Antigen (Nonreactive) Hep B Core IgM Ab (Nonreactive) Hep C IgG Ab (Nonreactive) Blood Type Blood Type Recheck Antibody Screen 05/10/18 05/10/18 05/10/18 Range/Units 08:02 09:00 10:09 WBC (4.0-11.0) th/mm3 RBC (4.50-5.90) mil/mm3 Hgb (13.0-17.0) gm/dL POC Hgb (Calc) (13.0-17.0) g/dL Hct (39.0-51.0) % POC Hct (39-51.0) % MCV (80.0-100.0) fL MCH (27.0-34.0) pg MCHC (32.0-36.0) % RDW (11.6-17.2) % Plt Count (150-450) th/mm3 MPV (7.0-11.0) fL Prelim Diff (Auto) Neut % (Auto) (16.0-70.0) % Lymph % (Auto) (9.0-44.0) % Harper % (Auto) (0.0-8.0) % Eos % (Auto) (0.0-4.0) % Baso % (Auto) (0.0-2.0) % Neut # (Auto) (1.8-7.7) th/mm3 Lymph # (Auto) (1.0-4.8) th/mm3 Harper # (Auto) (0.0-0.9) th/mm3 Eos # (Auto) (0.0-0.4) th/mm3 Baso # (Auto) (0.0-0.2) th/mm3 WBC Differential Seg Neuts % (Manual) (16-70) % Lymphocytes % (Manual) (9-44) % Monocytes % (Manual) (0-8) % Eosinophils % (Manual) (0-4) % Abs Neuts (Manual) (1.8-7.7) th/mm3 Differential Comment Platelet Estimate (Normal) Platelet Morphology (Normal) RBC Morphology (Normal) PT (9.8-11.6) sec INR Ratio APTT (23.4-31.7) sec Puncture Site Patient Temperature O2 Saturation (90-100) % ABG pH (7.320-7.420) ABG pCO2 (38-42) mmHg ABG pO2 (60-120) mmHg ABG HCO3 (22-26) mmol/L ABG O2 Content (12.0-20.0) Vol % ABG Base Excess (-2-2) mmol/L ABG Methemoglobin (0-2) % David Test Hemoglobin (12.0-16.0) G/DL Carboxyhemoglobin (0-4) % O2 Delivery Device Vent Setting Inspired O2 % Critical Value POC Sodium (137-144) mmol/L Sodium (136-145) meq/L POC Potassium (3.6-5.0) mmol/L Potassium (3.5-5.1) meq/L POC Chloride (102-111) mmol/L Chloride (98-107) meq/L Carbon Dioxide (21.0-32.0) meq/L Anion Gap (5-15) meq/L POC BUN (5-21) mg/dL BUN (7-18) mg/dL Creatinine (0.60-1.30) mg/dL POC Creatinine (0.6-1.3) mg/dL Estimated GFR (>89) mL/min POC Glucose 123 H 122 H 156 H (68-110) mg/dL Random Glucose (74-106) mg/dL Hemoglobin A1c (4.3-6.0) % Lactic Acid (0.4-2.0) mmol/L Calcium (8.5-10.1) mg/dL Phosphorus (2.5-4.9) mg/dL Magnesium (1.5-2.5) mg/dL Total Bilirubin (0.2-1.0) mg/dL Direct Bilirubin (0.0-0.2) mg/dL Indirect Bilirubin (0.0-0.8) mg/dL AST (15-37) U/L ALT (12-78) U/L Alkaline Phosphatase (45-117) U/L Ammonia (11-32) mcmol/L Total Creatine Kinase (39-308) U/L CK-MB (CK-2) (0.5-3.6) ng/mL CK-MB (CK-2) % (0.0-4.0) % Troponin I (0.02-0.05) ng/mL Total Protein (6.4-8.2) g/dL Albumin (3.4-5.0) g/dL Triglycerides (42-150) mg/dL Cholesterol (120-200) mg/dL LDL Cholesterol, Calc (0-99) mg/dL HDL Cholesterol (40.0-60.0) mg/dL Cholesterol/HDL Ratio Ratio TSH (0.358-3.740) uIU/mL Free T4 (0.76-1.46) ng/dL Total T3 (60-181) ng/dL Cortisol mcg/dL Urine Color (Yellw/Straw) Urine Clarity (Clear) Urine pH (5.0-8.5) Ur Specific Bentley (1.002-1.035) Urine Protein (Neg-Trace) mg/dL Urine Glucose (UA) (Negative) mg/dL Urine Ketones (Negative) mg/dL Urine Occult Blood (Negative) Urine Nitrate (Negative) Urine Bilirubin (Negative) Urine Urobilinogen (Less than 2) mg/dL Ur Leukocyte Esterase (Negative) Urine RBC (0-3) /hpf Urine WBC (0-5) /hpf Ur Squamous Epith Cells (0-5) /hpf Urine Bacteria (None) /hpf Micro UA Comment Ur Microscopic Review Urine Culture Comments Nasal Screen MRSA (PCR) (Negative) Urine Opiates Screen (Neg) Ur Barbiturates Screen (Neg) Phenytoin (10.0-20.0) mcg/mL Ur Amphetamines Screen (Neg) Phenobarbital (15.0-40.0) mcg/mL U Benzodiazepines Scrn (Neg) Urine Cocaine Screen (Neg) U Cannabinoids Screen (Neg) Hepatitis A IgM Ab (Nonreactive) Hep Bs Antigen (Nonreactive) Hep B Core IgM Ab (Nonreactive) Hep C IgG Ab (Nonreactive) Blood Type Blood Type Recheck Antibody Screen 05/10/18 05/10/18 05/10/18 Range/Units 11:04 12:09 13:01 WBC (4.0-11.0) th/mm3 RBC (4.50-5.90) mil/mm3 Hgb (13.0-17.0) gm/dL POC Hgb (Calc) (13.0-17.0) g/dL Hct (39.0-51.0) % POC Hct (39-51.0) % MCV (80.0-100.0) fL MCH (27.0-34.0) pg MCHC (32.0-36.0) % RDW (11.6-17.2) % Plt Count (150-450) th/mm3 MPV (7.0-11.0) fL Prelim Diff (Auto) Neut % (Auto) (16.0-70.0) % Lymph % (Auto) (9.0-44.0) % Harper % (Auto) (0.0-8.0) % Eos % (Auto) (0.0-4.0) % Baso % (Auto) (0.0-2.0) % Neut # (Auto) (1.8-7.7) th/mm3 Lymph # (Auto) (1.0-4.8) th/mm3 Harper # (Auto) (0.0-0.9) th/mm3 Eos # (Auto) (0.0-0.4) th/mm3 Baso # (Auto) (0.0-0.2) th/mm3 WBC Differential Seg Neuts % (Manual) (16-70) % Lymphocytes % (Manual) (9-44) % Monocytes % (Manual) (0-8) % Eosinophils % (Manual) (0-4) % Abs Neuts (Manual) (1.8-7.7) th/mm3 Differential Comment Platelet Estimate (Normal) Platelet Morphology (Normal) RBC Morphology (Normal) PT (9.8-11.6) sec INR Ratio APTT (23.4-31.7) sec Puncture Site Patient Temperature O2 Saturation (90-100) % ABG pH (7.320-7.420) ABG pCO2 (38-42) mmHg ABG pO2 (60-120) mmHg ABG HCO3 (22-26) mmol/L ABG O2 Content (12.0-20.0) Vol % ABG Base Excess (-2-2) mmol/L ABG Methemoglobin (0-2) % David Test Hemoglobin (12.0-16.0) G/DL Carboxyhemoglobin (0-4) % O2 Delivery Device Vent Setting Inspired O2 % Critical Value POC Sodium (137-144) mmol/L Sodium (136-145) meq/L POC Potassium (3.6-5.0) mmol/L Potassium (3.5-5.1) meq/L POC Chloride (102-111) mmol/L Chloride (98-107) meq/L Carbon Dioxide (21.0-32.0) meq/L Anion Gap (5-15) meq/L POC BUN (5-21) mg/dL BUN (7-18) mg/dL Creatinine (0.60-1.30) mg/dL POC Creatinine (0.6-1.3) mg/dL Estimated GFR (>89) mL/min POC Glucose 140 H 140 H 120 H (68-110) mg/dL Random Glucose (74-106) mg/dL Hemoglobin A1c (4.3-6.0) % Lactic Acid (0.4-2.0) mmol/L Calcium (8.5-10.1) mg/dL Phosphorus (2.5-4.9) mg/dL Magnesium (1.5-2.5) mg/dL Total Bilirubin (0.2-1.0) mg/dL Direct Bilirubin (0.0-0.2) mg/dL Indirect Bilirubin (0.0-0.8) mg/dL AST (15-37) U/L ALT (12-78) U/L Alkaline Phosphatase (45-117) U/L Ammonia (11-32) mcmol/L Total Creatine Kinase (39-308) U/L CK-MB (CK-2) (0.5-3.6) ng/mL CK-MB (CK-2) % (0.0-4.0) % Troponin I (0.02-0.05) ng/mL Total Protein (6.4-8.2) g/dL Albumin (3.4-5.0) g/dL Triglycerides (42-150) mg/dL Cholesterol (120-200) mg/dL LDL Cholesterol, Calc (0-99) mg/dL HDL Cholesterol (40.0-60.0) mg/dL Cholesterol/HDL Ratio Ratio TSH (0.358-3.740) uIU/mL Free T4 (0.76-1.46) ng/dL Total T3 (60-181) ng/dL Cortisol mcg/dL Urine Color (Yellw/Straw) Urine Clarity (Clear) Urine pH (5.0-8.5) Ur Specific Bentley (1.002-1.035) Urine Protein (Neg-Trace) mg/dL Urine Glucose (UA) (Negative) mg/dL Urine Ketones (Negative) mg/dL Urine Occult Blood (Negative) Urine Nitrate (Negative) Urine Bilirubin (Negative) Urine Urobilinogen (Less than 2) mg/dL Ur Leukocyte Esterase (Negative) Urine RBC (0-3) /hpf Urine WBC (0-5) /hpf Ur Squamous Epith Cells (0-5) /hpf Urine Bacteria (None) /hpf Micro UA Comment Ur Microscopic Review Urine Culture Comments Nasal Screen MRSA (PCR) (Negative) Urine Opiates Screen (Neg) Ur Barbiturates Screen (Neg) Phenytoin (10.0-20.0) mcg/mL Ur Amphetamines Screen (Neg) Phenobarbital (15.0-40.0) mcg/mL U Benzodiazepines Scrn (Neg) Urine Cocaine Screen (Neg) U Cannabinoids Screen (Neg) Hepatitis A IgM Ab (Nonreactive) Hep Bs Antigen (Nonreactive) Hep B Core IgM Ab (Nonreactive) Hep C IgG Ab (Nonreactive) Blood Type Blood Type Recheck Antibody Screen 05/10/18 05/10/18 05/10/18 Range/Units 13:57 15:15 15:55 WBC (4.0-11.0) th/mm3 RBC (4.50-5.90) mil/mm3 Hgb (13.0-17.0) gm/dL POC Hgb (Calc) (13.0-17.0) g/dL Hct (39.0-51.0) % POC Hct (39-51.0) % MCV (80.0-100.0) fL MCH (27.0-34.0) pg MCHC (32.0-36.0) % RDW (11.6-17.2) % Plt Count (150-450) th/mm3 MPV (7.0-11.0) fL Prelim Diff (Auto) Neut % (Auto) (16.0-70.0) % Lymph % (Auto) (9.0-44.0) % Harper % (Auto) (0.0-8.0) % Eos % (Auto) (0.0-4.0) % Baso % (Auto) (0.0-2.0) % Neut # (Auto) (1.8-7.7) th/mm3 Lymph # (Auto) (1.0-4.8) th/mm3 Harper # (Auto) (0.0-0.9) th/mm3 Eos # (Auto) (0.0-0.4) th/mm3 Baso # (Auto) (0.0-0.2) th/mm3 WBC Differential Seg Neuts % (Manual) (16-70) % Lymphocytes % (Manual) (9-44) % Monocytes % (Manual) (0-8) % Eosinophils % (Manual) (0-4) % Abs Neuts (Manual) (1.8-7.7) th/mm3 Differential Comment Platelet Estimate (Normal) Platelet Morphology (Normal) RBC Morphology (Normal) PT (9.8-11.6) sec INR Ratio APTT (23.4-31.7) sec Puncture Site Patient Temperature O2 Saturation (90-100) % ABG pH (7.320-7.420) ABG pCO2 (38-42) mmHg ABG pO2 (60-120) mmHg ABG HCO3 (22-26) mmol/L ABG O2 Content (12.0-20.0) Vol % ABG Base Excess (-2-2) mmol/L ABG Methemoglobin (0-2) % David Test Hemoglobin (12.0-16.0) G/DL Carboxyhemoglobin (0-4) % O2 Delivery Device Vent Setting Inspired O2 % Critical Value POC Sodium (137-144) mmol/L Sodium 142 (136-145) meq/L POC Potassium (3.6-5.0) mmol/L Potassium 4.2 D (3.5-5.1) meq/L POC Chloride (102-111) mmol/L Chloride 111 H (98-107) meq/L Carbon Dioxide 21.2 (21.0-32.0) meq/L Anion Gap 10 (5-15) meq/L POC BUN (5-21) mg/dL BUN 11 (7-18) mg/dL Creatinine 0.67 (0.60-1.30) mg/dL POC Creatinine (0.6-1.3) mg/dL Estimated GFR Greater than 89 (>89) mL/min POC Glucose 113 H 122 H (68-110) mg/dL Random Glucose 155 H (74-106) mg/dL Hemoglobin A1c (4.3-6.0) % Lactic Acid (0.4-2.0) mmol/L Calcium 8.0 L (8.5-10.1) mg/dL Phosphorus 1.9 L D (2.5-4.9) mg/dL Magnesium 2.2 (1.5-2.5) mg/dL Total Bilirubin (0.2-1.0) mg/dL Direct Bilirubin (0.0-0.2) mg/dL Indirect Bilirubin (0.0-0.8) mg/dL AST (15-37) U/L ALT (12-78) U/L Alkaline Phosphatase (45-117) U/L Ammonia (11-32) mcmol/L Total Creatine Kinase (39-308) U/L CK-MB (CK-2) (0.5-3.6) ng/mL CK-MB (CK-2) % (0.0-4.0) % Troponin I (0.02-0.05) ng/mL Total Protein (6.4-8.2) g/dL Albumin (3.4-5.0) g/dL Triglycerides (42-150) mg/dL Cholesterol (120-200) mg/dL LDL Cholesterol, Calc (0-99) mg/dL HDL Cholesterol (40.0-60.0) mg/dL Cholesterol/HDL Ratio Ratio TSH (0.358-3.740) uIU/mL Free T4 1.08 (0.76-1.46) ng/dL Total T3 (60-181) ng/dL Cortisol mcg/dL Urine Color (Yellw/Straw) Urine Clarity (Clear) Urine pH (5.0-8.5) Ur Specific Bentley (1.002-1.035) Urine Protein (Neg-Trace) mg/dL Urine Glucose (UA) (Negative) mg/dL Urine Ketones (Negative) mg/dL Urine Occult Blood (Negative) Urine Nitrate (Negative) Urine Bilirubin (Negative) Urine Urobilinogen (Less than 2) mg/dL Ur Leukocyte Esterase (Negative) Urine RBC (0-3) /hpf Urine WBC (0-5) /hpf Ur Squamous Epith Cells (0-5) /hpf Urine Bacteria (None) /hpf Micro UA Comment Ur Microscopic Review Urine Culture Comments Nasal Screen MRSA (PCR) (Negative) Urine Opiates Screen (Neg) Ur Barbiturates Screen (Neg) Phenytoin (10.0-20.0) mcg/mL Ur Amphetamines Screen (Neg) Phenobarbital (15.0-40.0) mcg/mL U Benzodiazepines Scrn (Neg) Urine Cocaine Screen (Neg) U Cannabinoids Screen (Neg) Hepatitis A IgM Ab (Nonreactive) Hep Bs Antigen (Nonreactive) Hep B Core IgM Ab (Nonreactive) Hep C IgG Ab (Nonreactive) Blood Type Blood Type Recheck Antibody Screen 05/10/18 05/10/18 05/10/18 Range/Units 15:55 15:59 16:10 WBC (4.0-11.0) th/mm3 RBC (4.50-5.90) mil/mm3 Hgb (13.0-17.0) gm/dL POC Hgb (Calc) (13.0-17.0) g/dL Hct (39.0-51.0) % POC Hct (39-51.0) % MCV (80.0-100.0) fL MCH (27.0-34.0) pg MCHC (32.0-36.0) % RDW (11.6-17.2) % Plt Count (150-450) th/mm3 MPV (7.0-11.0) fL Prelim Diff (Auto) Neut % (Auto) (16.0-70.0) % Lymph % (Auto) (9.0-44.0) % Harper % (Auto) (0.0-8.0) % Eos % (Auto) (0.0-4.0) % Baso % (Auto) (0.0-2.0) % Neut # (Auto) (1.8-7.7) th/mm3 Lymph # (Auto) (1.0-4.8) th/mm3 Harper # (Auto) (0.0-0.9) th/mm3 Eos # (Auto) (0.0-0.4) th/mm3 Baso # (Auto) (0.0-0.2) th/mm3 WBC Differential Seg Neuts % (Manual) (16-70) % Lymphocytes % (Manual) (9-44) % Monocytes % (Manual) (0-8) % Eosinophils % (Manual) (0-4) % Abs Neuts (Manual) (1.8-7.7) th/mm3 Differential Comment Platelet Estimate (Normal) Platelet Morphology (Normal) RBC Morphology (Normal) PT 11.6 (9.8-11.6) sec INR 1.1 Ratio APTT 32.3 H (23.4-31.7) sec Puncture Site Patient Temperature O2 Saturation (90-100) % ABG pH (7.320-7.420) ABG pCO2 (38-42) mmHg ABG pO2 (60-120) mmHg ABG HCO3 (22-26) mmol/L ABG O2 Content (12.0-20.0) Vol % ABG Base Excess (-2-2) mmol/L ABG Methemoglobin (0-2) % David Test Hemoglobin (12.0-16.0) G/DL Carboxyhemoglobin (0-4) % O2 Delivery Device Vent Setting Inspired O2 % Critical Value POC Sodium (137-144) mmol/L Sodium (136-145) meq/L POC Potassium (3.6-5.0) mmol/L Potassium (3.5-5.1) meq/L POC Chloride (102-111) mmol/L Chloride (98-107) meq/L Carbon Dioxide (21.0-32.0) meq/L Anion Gap (5-15) meq/L POC BUN (5-21) mg/dL BUN (7-18) mg/dL Creatinine (0.60-1.30) mg/dL POC Creatinine (0.6-1.3) mg/dL Estimated GFR (>89) mL/min POC Glucose 145 H (68-110) mg/dL Random Glucose (74-106) mg/dL Hemoglobin A1c (4.3-6.0) % Lactic Acid (0.4-2.0) mmol/L Calcium (8.5-10.1) mg/dL Phosphorus (2.5-4.9) mg/dL Magnesium (1.5-2.5) mg/dL Total Bilirubin (0.2-1.0) mg/dL Direct Bilirubin (0.0-0.2) mg/dL Indirect Bilirubin (0.0-0.8) mg/dL AST (15-37) U/L ALT (12-78) U/L Alkaline Phosphatase (45-117) U/L Ammonia (11-32) mcmol/L Total Creatine Kinase (39-308) U/L CK-MB (CK-2) (0.5-3.6) ng/mL CK-MB (CK-2) % (0.0-4.0) % Troponin I (0.02-0.05) ng/mL Total Protein (6.4-8.2) g/dL Albumin (3.4-5.0) g/dL Triglycerides (42-150) mg/dL Cholesterol (120-200) mg/dL LDL Cholesterol, Calc (0-99) mg/dL HDL Cholesterol (40.0-60.0) mg/dL Cholesterol/HDL Ratio Ratio TSH (0.358-3.740) uIU/mL Free T4 Cancelled (0.76-1.46) ng/dL Total T3 (60-181) ng/dL Cortisol mcg/dL Urine Color (Yellw/Straw) Urine Clarity (Clear) Urine pH (5.0-8.5) Ur Specific Bentley (1.002-1.035) Urine Protein (Neg-Trace) mg/dL Urine Glucose (UA) (Negative) mg/dL Urine Ketones (Negative) mg/dL Urine Occult Blood (Negative) Urine Nitrate (Negative) Urine Bilirubin (Negative) Urine Urobilinogen (Less than 2) mg/dL Ur Leukocyte Esterase (Negative) Urine RBC (0-3) /hpf Urine WBC (0-5) /hpf Ur Squamous Epith Cells (0-5) /hpf Urine Bacteria (None) /hpf Micro UA Comment Ur Microscopic Review Urine Culture Comments Nasal Screen MRSA (PCR) (Negative) Urine Opiates Screen (Neg) Ur Barbiturates Screen (Neg) Phenytoin (10.0-20.0) mcg/mL Ur Amphetamines Screen (Neg) Phenobarbital (15.0-40.0) mcg/mL U Benzodiazepines Scrn (Neg) Urine Cocaine Screen (Neg) U Cannabinoids Screen (Neg) Hepatitis A IgM Ab (Nonreactive) Hep Bs Antigen (Nonreactive) Hep B Core IgM Ab (Nonreactive) Hep C IgG Ab (Nonreactive) Blood Type Blood Type Recheck Antibody Screen 05/10/18 05/10/18 05/10/18 Range/Units 17:19 18:21 18:55 WBC (4.0-11.0) th/mm3 RBC (4.50-5.90) mil/mm3 Hgb (13.0-17.0) gm/dL POC Hgb (Calc) (13.0-17.0) g/dL Hct (39.0-51.0) % POC Hct (39-51.0) % MCV (80.0-100.0) fL MCH (27.0-34.0) pg MCHC (32.0-36.0) % RDW (11.6-17.2) % Plt Count (150-450) th/mm3 MPV (7.0-11.0) fL Prelim Diff (Auto) Neut % (Auto) (16.0-70.0) % Lymph % (Auto) (9.0-44.0) % Harper % (Auto) (0.0-8.0) % Eos % (Auto) (0.0-4.0) % Baso % (Auto) (0.0-2.0) % Neut # (Auto) (1.8-7.7) th/mm3 Lymph # (Auto) (1.0-4.8) th/mm3 Harper # (Auto) (0.0-0.9) th/mm3 Eos # (Auto) (0.0-0.4) th/mm3 Baso # (Auto) (0.0-0.2) th/mm3 WBC Differential Seg Neuts % (Manual) (16-70) % Lymphocytes % (Manual) (9-44) % Monocytes % (Manual) (0-8) % Eosinophils % (Manual) (0-4) % Abs Neuts (Manual) (1.8-7.7) th/mm3 Differential Comment Platelet Estimate (Normal) Platelet Morphology (Normal) RBC Morphology (Normal) PT (9.8-11.6) sec INR Ratio APTT (23.4-31.7) sec Puncture Site Patient Temperature O2 Saturation (90-100) % ABG pH (7.320-7.420) ABG pCO2 (38-42) mmHg ABG pO2 (60-120) mmHg ABG HCO3 (22-26) mmol/L ABG O2 Content (12.0-20.0) Vol % ABG Base Excess (-2-2) mmol/L ABG Methemoglobin (0-2) % David Test Hemoglobin (12.0-16.0) G/DL Carboxyhemoglobin (0-4) % O2 Delivery Device Vent Setting Inspired O2 % Critical Value POC Sodium (137-144) mmol/L Sodium (136-145) meq/L POC Potassium (3.6-5.0) mmol/L Potassium (3.5-5.1) meq/L POC Chloride (102-111) mmol/L Chloride (98-107) meq/L Carbon Dioxide (21.0-32.0) meq/L Anion Gap (5-15) meq/L POC BUN (5-21) mg/dL BUN (7-18) mg/dL Creatinine (0.60-1.30) mg/dL POC Creatinine (0.6-1.3) mg/dL Estimated GFR (>89) mL/min POC Glucose 140 H 144 H 151 H (68-110) mg/dL Random Glucose (74-106) mg/dL Hemoglobin A1c (4.3-6.0) % Lactic Acid (0.4-2.0) mmol/L Calcium (8.5-10.1) mg/dL Phosphorus (2.5-4.9) mg/dL Magnesium (1.5-2.5) mg/dL Total Bilirubin (0.2-1.0) mg/dL Direct Bilirubin (0.0-0.2) mg/dL Indirect Bilirubin (0.0-0.8) mg/dL AST (15-37) U/L ALT (12-78) U/L Alkaline Phosphatase (45-117) U/L Ammonia (11-32) mcmol/L Total Creatine Kinase (39-308) U/L CK-MB (CK-2) (0.5-3.6) ng/mL CK-MB (CK-2) % (0.0-4.0) % Troponin I (0.02-0.05) ng/mL Total Protein (6.4-8.2) g/dL Albumin (3.4-5.0) g/dL Triglycerides (42-150) mg/dL Cholesterol (120-200) mg/dL LDL Cholesterol, Calc (0-99) mg/dL HDL Cholesterol (40.0-60.0) mg/dL Cholesterol/HDL Ratio Ratio TSH (0.358-3.740) uIU/mL Free T4 (0.76-1.46) ng/dL Total T3 (60-181) ng/dL Cortisol mcg/dL Urine Color (Yellw/Straw) Urine Clarity (Clear) Urine pH (5.0-8.5) Ur Specific Bentley (1.002-1.035) Urine Protein (Neg-Trace) mg/dL Urine Glucose (UA) (Negative) mg/dL Urine Ketones (Negative) mg/dL Urine Occult Blood (Negative) Urine Nitrate (Negative) Urine Bilirubin (Negative) Urine Urobilinogen (Less than 2) mg/dL Ur Leukocyte Esterase (Negative) Urine RBC (0-3) /hpf Urine WBC (0-5) /hpf Ur Squamous Epith Cells (0-5) /hpf Urine Bacteria (None) /hpf Micro UA Comment Ur Microscopic Review Urine Culture Comments Nasal Screen MRSA (PCR) (Negative) Urine Opiates Screen (Neg) Ur Barbiturates Screen (Neg) Phenytoin (10.0-20.0) mcg/mL Ur Amphetamines Screen (Neg) Phenobarbital (15.0-40.0) mcg/mL U Benzodiazepines Scrn (Neg) Urine Cocaine Screen (Neg) U Cannabinoids Screen (Neg) Hepatitis A IgM Ab (Nonreactive) Hep Bs Antigen (Nonreactive) Hep B Core IgM Ab (Nonreactive) Hep C IgG Ab (Nonreactive) Blood Type Blood Type Recheck Antibody Screen 05/10/18 05/10/18 05/10/18 Range/Units 20:15 21:13 22:13 WBC (4.0-11.0) th/mm3 RBC (4.50-5.90) mil/mm3 Hgb (13.0-17.0) gm/dL POC Hgb (Calc) (13.0-17.0) g/dL Hct (39.0-51.0) % POC Hct (39-51.0) % MCV (80.0-100.0) fL MCH (27.0-34.0) pg MCHC (32.0-36.0) % RDW (11.6-17.2) % Plt Count (150-450) th/mm3 MPV (7.0-11.0) fL Prelim Diff (Auto) Neut % (Auto) (16.0-70.0) % Lymph % (Auto) (9.0-44.0) % Harper % (Auto) (0.0-8.0) % Eos % (Auto) (0.0-4.0) % Baso % (Auto) (0.0-2.0) % Neut # (Auto) (1.8-7.7) th/mm3 Lymph # (Auto) (1.0-4.8) th/mm3 Harper # (Auto) (0.0-0.9) th/mm3 Eos # (Auto) (0.0-0.4) th/mm3 Baso # (Auto) (0.0-0.2) th/mm3 WBC Differential Seg Neuts % (Manual) (16-70) % Lymphocytes % (Manual) (9-44) % Monocytes % (Manual) (0-8) % Eosinophils % (Manual) (0-4) % Abs Neuts (Manual) (1.8-7.7) th/mm3 Differential Comment Platelet Estimate (Normal) Platelet Morphology (Normal) RBC Morphology (Normal) PT (9.8-11.6) sec INR Ratio APTT (23.4-31.7) sec Puncture Site Patient Temperature O2 Saturation (90-100) % ABG pH (7.320-7.420) ABG pCO2 (38-42) mmHg ABG pO2 (60-120) mmHg ABG HCO3 (22-26) mmol/L ABG O2 Content (12.0-20.0) Vol % ABG Base Excess (-2-2) mmol/L ABG Methemoglobin (0-2) % David Test Hemoglobin (12.0-16.0) G/DL Carboxyhemoglobin (0-4) % O2 Delivery Device Vent Setting Inspired O2 % Critical Value POC Sodium (137-144) mmol/L Sodium (136-145) meq/L POC Potassium (3.6-5.0) mmol/L Potassium (3.5-5.1) meq/L POC Chloride (102-111) mmol/L Chloride (98-107) meq/L Carbon Dioxide (21.0-32.0) meq/L Anion Gap (5-15) meq/L POC BUN (5-21) mg/dL BUN (7-18) mg/dL Creatinine (0.60-1.30) mg/dL POC Creatinine (0.6-1.3) mg/dL Estimated GFR (>89) mL/min POC Glucose 139 H 125 H 122 H (68-110) mg/dL Random Glucose (74-106) mg/dL Hemoglobin A1c (4.3-6.0) % Lactic Acid (0.4-2.0) mmol/L Calcium (8.5-10.1) mg/dL Phosphorus (2.5-4.9) mg/dL Magnesium (1.5-2.5) mg/dL Total Bilirubin (0.2-1.0) mg/dL Direct Bilirubin (0.0-0.2) mg/dL Indirect Bilirubin (0.0-0.8) mg/dL AST (15-37) U/L ALT (12-78) U/L Alkaline Phosphatase (45-117) U/L Ammonia (11-32) mcmol/L Total Creatine Kinase (39-308) U/L CK-MB (CK-2) (0.5-3.6) ng/mL CK-MB (CK-2) % (0.0-4.0) % Troponin I (0.02-0.05) ng/mL Total Protein (6.4-8.2) g/dL Albumin (3.4-5.0) g/dL Triglycerides (42-150) mg/dL Cholesterol (120-200) mg/dL LDL Cholesterol, Calc (0-99) mg/dL HDL Cholesterol (40.0-60.0) mg/dL Cholesterol/HDL Ratio Ratio TSH (0.358-3.740) uIU/mL Free T4 (0.76-1.46) ng/dL Total T3 (60-181) ng/dL Cortisol mcg/dL Urine Color (Yellw/Straw) Urine Clarity (Clear) Urine pH (5.0-8.5) Ur Specific Bentley (1.002-1.035) Urine Protein (Neg-Trace) mg/dL Urine Glucose (UA) (Negative) mg/dL Urine Ketones (Negative) mg/dL Urine Occult Blood (Negative) Urine Nitrate (Negative) Urine Bilirubin (Negative) Urine Urobilinogen (Less than 2) mg/dL Ur Leukocyte Esterase (Negative) Urine RBC (0-3) /hpf Urine WBC (0-5) /hpf Ur Squamous Epith Cells (0-5) /hpf Urine Bacteria (None) /hpf Micro UA Comment Ur Microscopic Review Urine Culture Comments Nasal Screen MRSA (PCR) (Negative) Urine Opiates Screen (Neg) Ur Barbiturates Screen (Neg) Phenytoin (10.0-20.0) mcg/mL Ur Amphetamines Screen (Neg) Phenobarbital (15.0-40.0) mcg/mL U Benzodiazepines Scrn (Neg) Urine Cocaine Screen (Neg) U Cannabinoids Screen (Neg) Hepatitis A IgM Ab (Nonreactive) Hep Bs Antigen (Nonreactive) Hep B Core IgM Ab (Nonreactive) Hep C IgG Ab (Nonreactive) Blood Type Blood Type Recheck Antibody Screen 05/10/18 05/10/18 05/10/18 Range/Units 22:15 22:15 23:00 WBC (4.0-11.0) th/mm3 RBC (4.50-5.90) mil/mm3 Hgb (13.0-17.0) gm/dL POC Hgb (Calc) (13.0-17.0) g/dL Hct (39.0-51.0) % POC Hct (39-51.0) % MCV (80.0-100.0) fL MCH (27.0-34.0) pg MCHC (32.0-36.0) % RDW (11.6-17.2) % Plt Count (150-450) th/mm3 MPV (7.0-11.0) fL Prelim Diff (Auto) Neut % (Auto) (16.0-70.0) % Lymph % (Auto) (9.0-44.0) % Harper % (Auto) (0.0-8.0) % Eos % (Auto) (0.0-4.0) % Baso % (Auto) (0.0-2.0) % Neut # (Auto) (1.8-7.7) th/mm3 Lymph # (Auto) (1.0-4.8) th/mm3 Harper # (Auto) (0.0-0.9) th/mm3 Eos # (Auto) (0.0-0.4) th/mm3 Baso # (Auto) (0.0-0.2) th/mm3 WBC Differential Seg Neuts % (Manual) (16-70) % Lymphocytes % (Manual) (9-44) % Monocytes % (Manual) (0-8) % Eosinophils % (Manual) (0-4) % Abs Neuts (Manual) (1.8-7.7) th/mm3 Differential Comment Platelet Estimate (Normal) Platelet Morphology (Normal) RBC Morphology (Normal) PT (9.8-11.6) sec INR Ratio APTT 74.1 H D (23.4-31.7) sec Puncture Site Patient Temperature O2 Saturation (90-100) % ABG pH (7.320-7.420) ABG pCO2 (38-42) mmHg ABG pO2 (60-120) mmHg ABG HCO3 (22-26) mmol/L ABG O2 Content (12.0-20.0) Vol % ABG Base Excess (-2-2) mmol/L ABG Methemoglobin (0-2) % David Test Hemoglobin (12.0-16.0) G/DL Carboxyhemoglobin (0-4) % O2 Delivery Device Vent Setting Inspired O2 % Critical Value POC Sodium (137-144) mmol/L Sodium (136-145) meq/L POC Potassium (3.6-5.0) mmol/L Potassium (3.5-5.1) meq/L POC Chloride (102-111) mmol/L Chloride (98-107) meq/L Carbon Dioxide (21.0-32.0) meq/L Anion Gap (5-15) meq/L POC BUN (5-21) mg/dL BUN (7-18) mg/dL Creatinine (0.60-1.30) mg/dL POC Creatinine (0.6-1.3) mg/dL Estimated GFR (>89) mL/min POC Glucose 116 H (68-110) mg/dL Random Glucose (74-106) mg/dL Hemoglobin A1c (4.3-6.0) % Lactic Acid (0.4-2.0) mmol/L Calcium (8.5-10.1) mg/dL Phosphorus (2.5-4.9) mg/dL Magnesium (1.5-2.5) mg/dL Total Bilirubin (0.2-1.0) mg/dL Direct Bilirubin (0.0-0.2) mg/dL Indirect Bilirubin (0.0-0.8) mg/dL AST (15-37) U/L ALT (12-78) U/L Alkaline Phosphatase (45-117) U/L Ammonia (11-32) mcmol/L Total Creatine Kinase (39-308) U/L CK-MB (CK-2) (0.5-3.6) ng/mL CK-MB (CK-2) % (0.0-4.0) % Troponin I (0.02-0.05) ng/mL Total Protein (6.4-8.2) g/dL Albumin (3.4-5.0) g/dL Triglycerides (42-150) mg/dL Cholesterol (120-200) mg/dL LDL Cholesterol, Calc (0-99) mg/dL HDL Cholesterol (40.0-60.0) mg/dL Cholesterol/HDL Ratio Ratio TSH (0.358-3.740) uIU/mL Free T4 (0.76-1.46) ng/dL Total T3 70 (60-181) ng/dL Cortisol mcg/dL Urine Color (Yellw/Straw) Urine Clarity (Clear) Urine pH (5.0-8.5) Ur Specific Bentley (1.002-1.035) Urine Protein (Neg-Trace) mg/dL Urine Glucose (UA) (Negative) mg/dL Urine Ketones (Negative) mg/dL Urine Occult Blood (Negative) Urine Nitrate (Negative) Urine Bilirubin (Negative) Urine Urobilinogen (Less than 2) mg/dL Ur Leukocyte Esterase (Negative) Urine RBC (0-3) /hpf Urine WBC (0-5) /hpf Ur Squamous Epith Cells (0-5) /hpf Urine Bacteria (None) /hpf Micro UA Comment Ur Microscopic Review Urine Culture Comments Nasal Screen MRSA (PCR) (Negative) Urine Opiates Screen (Neg) Ur Barbiturates Screen (Neg) Phenytoin (10.0-20.0) mcg/mL Ur Amphetamines Screen (Neg) Phenobarbital (15.0-40.0) mcg/mL U Benzodiazepines Scrn (Neg) Urine Cocaine Screen (Neg) U Cannabinoids Screen (Neg) Hepatitis A IgM Ab (Nonreactive) Hep Bs Antigen (Nonreactive) Hep B Core IgM Ab (Nonreactive) Hep C IgG Ab (Nonreactive) Blood Type Blood Type Recheck Antibody Screen 05/11/18 05/11/18 05/11/18 Range/Units 00:00 01:02 01:52 WBC (4.0-11.0) th/mm3 RBC (4.50-5.90) mil/mm3 Hgb (13.0-17.0) gm/dL POC Hgb (Calc) (13.0-17.0) g/dL Hct (39.0-51.0) % POC Hct (39-51.0) % MCV (80.0-100.0) fL MCH (27.0-34.0) pg MCHC (32.0-36.0) % RDW (11.6-17.2) % Plt Count (150-450) th/mm3 MPV (7.0-11.0) fL Prelim Diff (Auto) Neut % (Auto) (16.0-70.0) % Lymph % (Auto) (9.0-44.0) % Harper % (Auto) (0.0-8.0) % Eos % (Auto) (0.0-4.0) % Baso % (Auto) (0.0-2.0) % Neut # (Auto) (1.8-7.7) th/mm3 Lymph # (Auto) (1.0-4.8) th/mm3 Harper # (Auto) (0.0-0.9) th/mm3 Eos # (Auto) (0.0-0.4) th/mm3 Baso # (Auto) (0.0-0.2) th/mm3 WBC Differential Seg Neuts % (Manual) (16-70) % Lymphocytes % (Manual) (9-44) % Monocytes % (Manual) (0-8) % Eosinophils % (Manual) (0-4) % Abs Neuts (Manual) (1.8-7.7) th/mm3 Differential Comment Platelet Estimate (Normal) Platelet Morphology (Normal) RBC Morphology (Normal) PT (9.8-11.6) sec INR Ratio APTT (23.4-31.7) sec Puncture Site Patient Temperature O2 Saturation (90-100) % ABG pH (7.320-7.420) ABG pCO2 (38-42) mmHg ABG pO2 (60-120) mmHg ABG HCO3 (22-26) mmol/L ABG O2 Content (12.0-20.0) Vol % ABG Base Excess (-2-2) mmol/L ABG Methemoglobin (0-2) % David Test Hemoglobin (12.0-16.0) G/DL Carboxyhemoglobin (0-4) % O2 Delivery Device Vent Setting Inspired O2 % Critical Value POC Sodium (137-144) mmol/L Sodium (136-145) meq/L POC Potassium (3.6-5.0) mmol/L Potassium (3.5-5.1) meq/L POC Chloride (102-111) mmol/L Chloride (98-107) meq/L Carbon Dioxide (21.0-32.0) meq/L Anion Gap (5-15) meq/L POC BUN (5-21) mg/dL BUN (7-18) mg/dL Creatinine (0.60-1.30) mg/dL POC Creatinine (0.6-1.3) mg/dL Estimated GFR (>89) mL/min POC Glucose 132 H 121 H 118 H (68-110) mg/dL Random Glucose (74-106) mg/dL Hemoglobin A1c (4.3-6.0) % Lactic Acid (0.4-2.0) mmol/L Calcium (8.5-10.1) mg/dL Phosphorus (2.5-4.9) mg/dL Magnesium (1.5-2.5) mg/dL Total Bilirubin (0.2-1.0) mg/dL Direct Bilirubin (0.0-0.2) mg/dL Indirect Bilirubin (0.0-0.8) mg/dL AST (15-37) U/L ALT (12-78) U/L Alkaline Phosphatase (45-117) U/L Ammonia (11-32) mcmol/L Total Creatine Kinase (39-308) U/L CK-MB (CK-2) (0.5-3.6) ng/mL CK-MB (CK-2) % (0.0-4.0) % Troponin I (0.02-0.05) ng/mL Total Protein (6.4-8.2) g/dL Albumin (3.4-5.0) g/dL Triglycerides (42-150) mg/dL Cholesterol (120-200) mg/dL LDL Cholesterol, Calc (0-99) mg/dL HDL Cholesterol (40.0-60.0) mg/dL Cholesterol/HDL Ratio Ratio TSH (0.358-3.740) uIU/mL Free T4 (0.76-1.46) ng/dL Total T3 (60-181) ng/dL Cortisol mcg/dL Urine Color (Yellw/Straw) Urine Clarity (Clear) Urine pH (5.0-8.5) Ur Specific Bentley (1.002-1.035) Urine Protein (Neg-Trace) mg/dL Urine Glucose (UA) (Negative) mg/dL Urine Ketones (Negative) mg/dL Urine Occult Blood (Negative) Urine Nitrate (Negative) Urine Bilirubin (Negative) Urine Urobilinogen (Less than 2) mg/dL Ur Leukocyte Esterase (Negative) Urine RBC (0-3) /hpf Urine WBC (0-5) /hpf Ur Squamous Epith Cells (0-5) /hpf Urine Bacteria (None) /hpf Micro UA Comment Ur Microscopic Review Urine Culture Comments Nasal Screen MRSA (PCR) (Negative) Urine Opiates Screen (Neg) Ur Barbiturates Screen (Neg) Phenytoin (10.0-20.0) mcg/mL Ur Amphetamines Screen (Neg) Phenobarbital (15.0-40.0) mcg/mL U Benzodiazepines Scrn (Neg) Urine Cocaine Screen (Neg) U Cannabinoids Screen (Neg) Hepatitis A IgM Ab (Nonreactive) Hep Bs Antigen (Nonreactive) Hep B Core IgM Ab (Nonreactive) Hep C IgG Ab (Nonreactive) Blood Type Blood Type Recheck Antibody Screen 05/11/18 05/11/18 05/11/18 Range/Units 03:02 03:56 05:08 WBC 14.2 H (4.0-11.0) th/mm3 RBC 4.75 (4.50-5.90) mil/mm3 Hgb 13.4 (13.0-17.0) gm/dL POC Hgb (Calc) (13.0-17.0) g/dL Hct 40.7 (39.0-51.0) % POC Hct (39-51.0) % MCV 85.8 (80.0-100.0) fL MCH 28.3 (27.0-34.0) pg MCHC 33.0 (32.0-36.0) % RDW 15.0 (11.6-17.2) % Plt Count 180 (150-450) th/mm3 MPV 8.1 (7.0-11.0) fL Prelim Diff (Auto) Neut % (Auto) 89.1 H (16.0-70.0) % Lymph % (Auto) 6.5 L (9.0-44.0) % Harper % (Auto) 3.8 (0.0-8.0) % Eos % (Auto) 0.5 (0.0-4.0) % Baso % (Auto) 0.1 (0.0-2.0) % Neut # (Auto) 12.6 H (1.8-7.7) th/mm3 Lymph # (Auto) 0.9 L (1.0-4.8) th/mm3 Harper # (Auto) 0.5 (0.0-0.9) th/mm3 Eos # (Auto) 0.1 (0.0-0.4) th/mm3 Baso # (Auto) 0.0 (0.0-0.2) th/mm3 WBC Differential . Seg Neuts % (Manual) (16-70) % Lymphocytes % (Manual) (9-44) % Monocytes % (Manual) (0-8) % Eosinophils % (Manual) (0-4) % Abs Neuts (Manual) (1.8-7.7) th/mm3 Differential Comment Auto diff final Platelet Estimate (Normal) Platelet Morphology (Normal) RBC Morphology (Normal) PT (9.8-11.6) sec INR Ratio APTT (23.4-31.7) sec Puncture Site Patient Temperature O2 Saturation (90-100) % ABG pH (7.320-7.420) ABG pCO2 (38-42) mmHg ABG pO2 (60-120) mmHg ABG HCO3 (22-26) mmol/L ABG O2 Content (12.0-20.0) Vol % ABG Base Excess (-2-2) mmol/L ABG Methemoglobin (0-2) % David Test Hemoglobin (12.0-16.0) G/DL Carboxyhemoglobin (0-4) % O2 Delivery Device Vent Setting Inspired O2 % Critical Value POC Sodium (137-144) mmol/L Sodium (136-145) meq/L POC Potassium (3.6-5.0) mmol/L Potassium (3.5-5.1) meq/L POC Chloride (102-111) mmol/L Chloride (98-107) meq/L Carbon Dioxide (21.0-32.0) meq/L Anion Gap (5-15) meq/L POC BUN (5-21) mg/dL BUN (7-18) mg/dL Creatinine (0.60-1.30) mg/dL POC Creatinine (0.6-1.3) mg/dL Estimated GFR (>89) mL/min POC Glucose 117 H 137 H (68-110) mg/dL Random Glucose (74-106) mg/dL Hemoglobin A1c (4.3-6.0) % Lactic Acid (0.4-2.0) mmol/L Calcium (8.5-10.1) mg/dL Phosphorus (2.5-4.9) mg/dL Magnesium (1.5-2.5) mg/dL Total Bilirubin (0.2-1.0) mg/dL Direct Bilirubin (0.0-0.2) mg/dL Indirect Bilirubin (0.0-0.8) mg/dL AST (15-37) U/L ALT (12-78) U/L Alkaline Phosphatase (45-117) U/L Ammonia (11-32) mcmol/L Total Creatine Kinase (39-308) U/L CK-MB (CK-2) (0.5-3.6) ng/mL CK-MB (CK-2) % (0.0-4.0) % Troponin I (0.02-0.05) ng/mL Total Protein (6.4-8.2) g/dL Albumin (3.4-5.0) g/dL Triglycerides (42-150) mg/dL Cholesterol (120-200) mg/dL LDL Cholesterol, Calc (0-99) mg/dL HDL Cholesterol (40.0-60.0) mg/dL Cholesterol/HDL Ratio Ratio TSH (0.358-3.740) uIU/mL Free T4 (0.76-1.46) ng/dL Total T3 (60-181) ng/dL Cortisol mcg/dL Urine Color (Yellw/Straw) Urine Clarity (Clear) Urine pH (5.0-8.5) Ur Specific Bentley (1.002-1.035) Urine Protein (Neg-Trace) mg/dL Urine Glucose (UA) (Negative) mg/dL Urine Ketones (Negative) mg/dL Urine Occult Blood (Negative) Urine Nitrate (Negative) Urine Bilirubin (Negative) Urine Urobilinogen (Less than 2) mg/dL Ur Leukocyte Esterase (Negative) Urine RBC (0-3) /hpf Urine WBC (0-5) /hpf Ur Squamous Epith Cells (0-5) /hpf Urine Bacteria (None) /hpf Micro UA Comment Ur Microscopic Review Urine Culture Comments Nasal Screen MRSA (PCR) (Negative) Urine Opiates Screen (Neg) Ur Barbiturates Screen (Neg) Phenytoin (10.0-20.0) mcg/mL Ur Amphetamines Screen (Neg) Phenobarbital (15.0-40.0) mcg/mL U Benzodiazepines Scrn (Neg) Urine Cocaine Screen (Neg) U Cannabinoids Screen (Neg) Hepatitis A IgM Ab (Nonreactive) Hep Bs Antigen (Nonreactive) Hep B Core IgM Ab (Nonreactive) Hep C IgG Ab (Nonreactive) Blood Type Blood Type Recheck Antibody Screen 05/11/18 05/11/18 05/11/18 Range/Units 05:08 05:08 05:08 WBC (4.0-11.0) th/mm3 RBC (4.50-5.90) mil/mm3 Hgb (13.0-17.0) gm/dL POC Hgb (Calc) (13.0-17.0) g/dL Hct (39.0-51.0) % POC Hct (39-51.0) % MCV (80.0-100.0) fL MCH (27.0-34.0) pg MCHC (32.0-36.0) % RDW (11.6-17.2) % Plt Count (150-450) th/mm3 MPV (7.0-11.0) fL Prelim Diff (Auto) Neut % (Auto) (16.0-70.0) % Lymph % (Auto) (9.0-44.0) % Harper % (Auto) (0.0-8.0) % Eos % (Auto) (0.0-4.0) % Baso % (Auto) (0.0-2.0) % Neut # (Auto) (1.8-7.7) th/mm3 Lymph # (Auto) (1.0-4.8) th/mm3 Harper # (Auto) (0.0-0.9) th/mm3 Eos # (Auto) (0.0-0.4) th/mm3 Baso # (Auto) (0.0-0.2) th/mm3 WBC Differential Seg Neuts % (Manual) (16-70) % Lymphocytes % (Manual) (9-44) % Monocytes % (Manual) (0-8) % Eosinophils % (Manual) (0-4) % Abs Neuts (Manual) (1.8-7.7) th/mm3 Differential Comment Platelet Estimate (Normal) Platelet Morphology (Normal) RBC Morphology (Normal) PT (9.8-11.6) sec INR Ratio APTT 63.4 H (23.4-31.7) sec Puncture Site Patient Temperature O2 Saturation (90-100) % ABG pH (7.320-7.420) ABG pCO2 (38-42) mmHg ABG pO2 (60-120) mmHg ABG HCO3 (22-26) mmol/L ABG O2 Content (12.0-20.0) Vol % ABG Base Excess (-2-2) mmol/L ABG Methemoglobin (0-2) % David Test Hemoglobin (12.0-16.0) G/DL Carboxyhemoglobin (0-4) % O2 Delivery Device Vent Setting Inspired O2 % Critical Value POC Sodium (137-144) mmol/L Sodium 145 (136-145) meq/L POC Potassium (3.6-5.0) mmol/L Potassium 3.4 L D (3.5-5.1) meq/L POC Chloride (102-111) mmol/L Chloride 113 H (98-107) meq/L Carbon Dioxide 26.1 (21.0-32.0) meq/L Anion Gap 6 (5-15) meq/L POC BUN (5-21) mg/dL BUN 11 (7-18) mg/dL Creatinine 0.57 L (0.60-1.30) mg/dL POC Creatinine (0.6-1.3) mg/dL Estimated GFR Greater than 89 (>89) mL/min POC Glucose (68-110) mg/dL Random Glucose 144 H (74-106) mg/dL Hemoglobin A1c (4.3-6.0) % Lactic Acid (0.4-2.0) mmol/L Calcium 7.7 L (8.5-10.1) mg/dL Phosphorus 1.9 L (2.5-4.9) mg/dL Magnesium 2.1 (1.5-2.5) mg/dL Total Bilirubin 0.5 (0.2-1.0) mg/dL Direct Bilirubin (0.0-0.2) mg/dL Indirect Bilirubin (0.0-0.8) mg/dL AST 125 H (15-37) U/L ALT 69 (12-78) U/L Alkaline Phosphatase 55 (45-117) U/L Ammonia 23 (11-32) mcmol/L Total Creatine Kinase 582 H (39-308) U/L CK-MB (CK-2) 123.3 H (0.5-3.6) ng/mL CK-MB (CK-2) % 21.2 H* (0.0-4.0) % Troponin I 31.30 H* (0.02-0.05) ng/mL Total Protein 5.2 L D (6.4-8.2) g/dL Albumin 2.5 L D (3.4-5.0) g/dL Triglycerides (42-150) mg/dL Cholesterol (120-200) mg/dL LDL Cholesterol, Calc (0-99) mg/dL HDL Cholesterol (40.0-60.0) mg/dL Cholesterol/HDL Ratio Ratio TSH (0.358-3.740) uIU/mL Free T4 (0.76-1.46) ng/dL Total T3 (60-181) ng/dL Cortisol mcg/dL Urine Color (Yellw/Straw) Urine Clarity (Clear) Urine pH (5.0-8.5) Ur Specific Bentley (1.002-1.035) Urine Protein (Neg-Trace) mg/dL Urine Glucose (UA) (Negative) mg/dL Urine Ketones (Negative) mg/dL Urine Occult Blood (Negative) Urine Nitrate (Negative) Urine Bilirubin (Negative) Urine Urobilinogen (Less than 2) mg/dL Ur Leukocyte Esterase (Negative) Urine RBC (0-3) /hpf Urine WBC (0-5) /hpf Ur Squamous Epith Cells (0-5) /hpf Urine Bacteria (None) /hpf Micro UA Comment Ur Microscopic Review Urine Culture Comments Nasal Screen MRSA (PCR) (Negative) Urine Opiates Screen (Neg) Ur Barbiturates Screen (Neg) Phenytoin (10.0-20.0) mcg/mL Ur Amphetamines Screen (Neg) Phenobarbital (15.0-40.0) mcg/mL U Benzodiazepines Scrn (Neg) Urine Cocaine Screen (Neg) U Cannabinoids Screen (Neg) Hepatitis A IgM Ab (Nonreactive) Hep Bs Antigen (Nonreactive) Hep B Core IgM Ab (Nonreactive) Hep C IgG Ab (Nonreactive) Blood Type Blood Type Recheck Antibody Screen 05/11/18 05/11/18 05/11/18 Range/Units 05:09 05:48 06:57 WBC (4.0-11.0) th/mm3 RBC (4.50-5.90) mil/mm3 Hgb (13.0-17.0) gm/dL POC Hgb (Calc) (13.0-17.0) g/dL Hct (39.0-51.0) % POC Hct (39-51.0) % MCV (80.0-100.0) fL MCH (27.0-34.0) pg MCHC (32.0-36.0) % RDW (11.6-17.2) % Plt Count (150-450) th/mm3 MPV (7.0-11.0) fL Prelim Diff (Auto) Neut % (Auto) (16.0-70.0) % Lymph % (Auto) (9.0-44.0) % Harper % (Auto) (0.0-8.0) % Eos % (Auto) (0.0-4.0) % Baso % (Auto) (0.0-2.0) % Neut # (Auto) (1.8-7.7) th/mm3 Lymph # (Auto) (1.0-4.8) th/mm3 Harper # (Auto) (0.0-0.9) th/mm3 Eos # (Auto) (0.0-0.4) th/mm3 Baso # (Auto) (0.0-0.2) th/mm3 WBC Differential Seg Neuts % (Manual) (16-70) % Lymphocytes % (Manual) (9-44) % Monocytes % (Manual) (0-8) % Eosinophils % (Manual) (0-4) % Abs Neuts (Manual) (1.8-7.7) th/mm3 Differential Comment Platelet Estimate (Normal) Platelet Morphology (Normal) RBC Morphology (Normal) PT (9.8-11.6) sec INR Ratio APTT (23.4-31.7) sec Puncture Site Patient Temperature O2 Saturation (90-100) % ABG pH (7.320-7.420) ABG pCO2 (38-42) mmHg ABG pO2 (60-120) mmHg ABG HCO3 (22-26) mmol/L ABG O2 Content (12.0-20.0) Vol % ABG Base Excess (-2-2) mmol/L ABG Methemoglobin (0-2) % David Test Hemoglobin (12.0-16.0) G/DL Carboxyhemoglobin (0-4) % O2 Delivery Device Vent Setting Inspired O2 % Critical Value POC Sodium (137-144) mmol/L Sodium (136-145) meq/L POC Potassium (3.6-5.0) mmol/L Potassium (3.5-5.1) meq/L POC Chloride (102-111) mmol/L Chloride (98-107) meq/L Carbon Dioxide (21.0-32.0) meq/L Anion Gap (5-15) meq/L POC BUN (5-21) mg/dL BUN (7-18) mg/dL Creatinine (0.60-1.30) mg/dL POC Creatinine (0.6-1.3) mg/dL Estimated GFR (>89) mL/min POC Glucose 132 H 109 136 H (68-110) mg/dL Random Glucose (74-106) mg/dL Hemoglobin A1c (4.3-6.0) % Lactic Acid (0.4-2.0) mmol/L Calcium (8.5-10.1) mg/dL Phosphorus (2.5-4.9) mg/dL Magnesium (1.5-2.5) mg/dL Total Bilirubin (0.2-1.0) mg/dL Direct Bilirubin (0.0-0.2) mg/dL Indirect Bilirubin (0.0-0.8) mg/dL AST (15-37) U/L ALT (12-78) U/L Alkaline Phosphatase (45-117) U/L Ammonia (11-32) mcmol/L Total Creatine Kinase (39-308) U/L CK-MB (CK-2) (0.5-3.6) ng/mL CK-MB (CK-2) % (0.0-4.0) % Troponin I (0.02-0.05) ng/mL Total Protein (6.4-8.2) g/dL Albumin (3.4-5.0) g/dL Triglycerides (42-150) mg/dL Cholesterol (120-200) mg/dL LDL Cholesterol, Calc (0-99) mg/dL HDL Cholesterol (40.0-60.0) mg/dL Cholesterol/HDL Ratio Ratio TSH (0.358-3.740) uIU/mL Free T4 (0.76-1.46) ng/dL Total T3 (60-181) ng/dL Cortisol mcg/dL Urine Color (Yellw/Straw) Urine Clarity (Clear) Urine pH (5.0-8.5) Ur Specific Bentley (1.002-1.035) Urine Protein (Neg-Trace) mg/dL Urine Glucose (UA) (Negative) mg/dL Urine Ketones (Negative) mg/dL Urine Occult Blood (Negative) Urine Nitrate (Negative) Urine Bilirubin (Negative) Urine Urobilinogen (Less than 2) mg/dL Ur Leukocyte Esterase (Negative) Urine RBC (0-3) /hpf Urine WBC (0-5) /hpf Ur Squamous Epith Cells (0-5) /hpf Urine Bacteria (None) /hpf Micro UA Comment Ur Microscopic Review Urine Culture Comments Nasal Screen MRSA (PCR) (Negative) Urine Opiates Screen (Neg) Ur Barbiturates Screen (Neg) Phenytoin (10.0-20.0) mcg/mL Ur Amphetamines Screen (Neg) Phenobarbital (15.0-40.0) mcg/mL U Benzodiazepines Scrn (Neg) Urine Cocaine Screen (Neg) U Cannabinoids Screen (Neg) Hepatitis A IgM Ab (Nonreactive) Hep Bs Antigen (Nonreactive) Hep B Core IgM Ab (Nonreactive) Hep C IgG Ab (Nonreactive) Blood Type Blood Type Recheck Antibody Screen 05/11/18 05/11/18 05/11/18 Range/Units 07:59 09:04 09:55 WBC (4.0-11.0) th/mm3 RBC (4.50-5.90) mil/mm3 Hgb (13.0-17.0) gm/dL POC Hgb (Calc) (13.0-17.0) g/dL Hct (39.0-51.0) % POC Hct (39-51.0) % MCV (80.0-100.0) fL MCH (27.0-34.0) pg MCHC (32.0-36.0) % RDW (11.6-17.2) % Plt Count (150-450) th/mm3 MPV (7.0-11.0) fL Prelim Diff (Auto) Neut % (Auto) (16.0-70.0) % Lymph % (Auto) (9.0-44.0) % Harper % (Auto) (0.0-8.0) % Eos % (Auto) (0.0-4.0) % Baso % (Auto) (0.0-2.0) % Neut # (Auto) (1.8-7.7) th/mm3 Lymph # (Auto) (1.0-4.8) th/mm3 Harper # (Auto) (0.0-0.9) th/mm3 Eos # (Auto) (0.0-0.4) th/mm3 Baso # (Auto) (0.0-0.2) th/mm3 WBC Differential Seg Neuts % (Manual) (16-70) % Lymphocytes % (Manual) (9-44) % Monocytes % (Manual) (0-8) % Eosinophils % (Manual) (0-4) % Abs Neuts (Manual) (1.8-7.7) th/mm3 Differential Comment Platelet Estimate (Normal) Platelet Morphology (Normal) RBC Morphology (Normal) PT (9.8-11.6) sec INR Ratio APTT (23.4-31.7) sec Puncture Site Patient Temperature O2 Saturation (90-100) % ABG pH (7.320-7.420) ABG pCO2 (38-42) mmHg ABG pO2 (60-120) mmHg ABG HCO3 (22-26) mmol/L ABG O2 Content (12.0-20.0) Vol % ABG Base Excess (-2-2) mmol/L ABG Methemoglobin (0-2) % David Test Hemoglobin (12.0-16.0) G/DL Carboxyhemoglobin (0-4) % O2 Delivery Device Vent Setting Inspired O2 % Critical Value POC Sodium (137-144) mmol/L Sodium (136-145) meq/L POC Potassium (3.6-5.0) mmol/L Potassium (3.5-5.1) meq/L POC Chloride (102-111) mmol/L Chloride (98-107) meq/L Carbon Dioxide (21.0-32.0) meq/L Anion Gap (5-15) meq/L POC BUN (5-21) mg/dL BUN (7-18) mg/dL Creatinine (0.60-1.30) mg/dL POC Creatinine (0.6-1.3) mg/dL Estimated GFR (>89) mL/min POC Glucose 132 H 167 H 121 H (68-110) mg/dL Random Glucose (74-106) mg/dL Hemoglobin A1c (4.3-6.0) % Lactic Acid (0.4-2.0) mmol/L Calcium (8.5-10.1) mg/dL Phosphorus (2.5-4.9) mg/dL Magnesium (1.5-2.5) mg/dL Total Bilirubin (0.2-1.0) mg/dL Direct Bilirubin (0.0-0.2) mg/dL Indirect Bilirubin (0.0-0.8) mg/dL AST (15-37) U/L ALT (12-78) U/L Alkaline Phosphatase (45-117) U/L Ammonia (11-32) mcmol/L Total Creatine Kinase (39-308) U/L CK-MB (CK-2) (0.5-3.6) ng/mL CK-MB (CK-2) % (0.0-4.0) % Troponin I (0.02-0.05) ng/mL Total Protein (6.4-8.2) g/dL Albumin (3.4-5.0) g/dL Triglycerides (42-150) mg/dL Cholesterol (120-200) mg/dL LDL Cholesterol, Calc (0-99) mg/dL HDL Cholesterol (40.0-60.0) mg/dL Cholesterol/HDL Ratio Ratio TSH (0.358-3.740) uIU/mL Free T4 (0.76-1.46) ng/dL Total T3 (60-181) ng/dL Cortisol mcg/dL Urine Color (Yellw/Straw) Urine Clarity (Clear) Urine pH (5.0-8.5) Ur Specific Bentley (1.002-1.035) Urine Protein (Neg-Trace) mg/dL Urine Glucose (UA) (Negative) mg/dL Urine Ketones (Negative) mg/dL Urine Occult Blood (Negative) Urine Nitrate (Negative) Urine Bilirubin (Negative) Urine Urobilinogen (Less than 2) mg/dL Ur Leukocyte Esterase (Negative) Urine RBC (0-3) /hpf Urine WBC (0-5) /hpf Ur Squamous Epith Cells (0-5) /hpf Urine Bacteria (None) /hpf Micro UA Comment Ur Microscopic Review Urine Culture Comments Nasal Screen MRSA (PCR) (Negative) Urine Opiates Screen (Neg) Ur Barbiturates Screen (Neg) Phenytoin (10.0-20.0) mcg/mL Ur Amphetamines Screen (Neg) Phenobarbital (15.0-40.0) mcg/mL U Benzodiazepines Scrn (Neg) Urine Cocaine Screen (Neg) U Cannabinoids Screen (Neg) Hepatitis A IgM Ab (Nonreactive) Hep Bs Antigen (Nonreactive) Hep B Core IgM Ab (Nonreactive) Hep C IgG Ab (Nonreactive) Blood Type Blood Type Recheck Antibody Screen 05/11/18 05/11/18 05/11/18 Range/Units 11:12 16:01 18:24 WBC (4.0-11.0) th/mm3 RBC (4.50-5.90) mil/mm3 Hgb (13.0-17.0) gm/dL POC Hgb (Calc) (13.0-17.0) g/dL Hct (39.0-51.0) % POC Hct (39-51.0) % MCV (80.0-100.0) fL MCH (27.0-34.0) pg MCHC (32.0-36.0) % RDW (11.6-17.2) % Plt Count (150-450) th/mm3 MPV (7.0-11.0) fL Prelim Diff (Auto) Neut % (Auto) (16.0-70.0) % Lymph % (Auto) (9.0-44.0) % Harper % (Auto) (0.0-8.0) % Eos % (Auto) (0.0-4.0) % Baso % (Auto) (0.0-2.0) % Neut # (Auto) (1.8-7.7) th/mm3 Lymph # (Auto) (1.0-4.8) th/mm3 Harper # (Auto) (0.0-0.9) th/mm3 Eos # (Auto) (0.0-0.4) th/mm3 Baso # (Auto) (0.0-0.2) th/mm3 WBC Differential Seg Neuts % (Manual) (16-70) % Lymphocytes % (Manual) (9-44) % Monocytes % (Manual) (0-8) % Eosinophils % (Manual) (0-4) % Abs Neuts (Manual) (1.8-7.7) th/mm3 Differential Comment Platelet Estimate (Normal) Platelet Morphology (Normal) RBC Morphology (Normal) PT (9.8-11.6) sec INR Ratio APTT (23.4-31.7) sec Puncture Site Patient Temperature O2 Saturation (90-100) % ABG pH (7.320-7.420) ABG pCO2 (38-42) mmHg ABG pO2 (60-120) mmHg ABG HCO3 (22-26) mmol/L ABG O2 Content (12.0-20.0) Vol % ABG Base Excess (-2-2) mmol/L ABG Methemoglobin (0-2) % David Test Hemoglobin (12.0-16.0) G/DL Carboxyhemoglobin (0-4) % O2 Delivery Device Vent Setting Inspired O2 % Critical Value POC Sodium (137-144) mmol/L Sodium 142 (136-145) meq/L POC Potassium (3.6-5.0) mmol/L Potassium 3.6 (3.5-5.1) meq/L POC Chloride (102-111) mmol/L Chloride 108 H (98-107) meq/L Carbon Dioxide 27.5 (21.0-32.0) meq/L Anion Gap 7 (5-15) meq/L POC BUN (5-21) mg/dL BUN 10 (7-18) mg/dL Creatinine 0.67 (0.60-1.30) mg/dL POC Creatinine (0.6-1.3) mg/dL Estimated GFR Greater than 89 (>89) mL/min POC Glucose 162 H 169 H (68-110) mg/dL Random Glucose 175 H (74-106) mg/dL Hemoglobin A1c (4.3-6.0) % Lactic Acid (0.4-2.0) mmol/L Calcium 7.9 L (8.5-10.1) mg/dL Phosphorus 2.6 (2.5-4.9) mg/dL Magnesium 1.9 (1.5-2.5) mg/dL Total Bilirubin (0.2-1.0) mg/dL Direct Bilirubin (0.0-0.2) mg/dL Indirect Bilirubin (0.0-0.8) mg/dL AST (15-37) U/L ALT (12-78) U/L Alkaline Phosphatase (45-117) U/L Ammonia (11-32) mcmol/L Total Creatine Kinase (39-308) U/L CK-MB (CK-2) (0.5-3.6) ng/mL CK-MB (CK-2) % (0.0-4.0) % Troponin I (0.02-0.05) ng/mL Total Protein (6.4-8.2) g/dL Albumin (3.4-5.0) g/dL Triglycerides (42-150) mg/dL Cholesterol (120-200) mg/dL LDL Cholesterol, Calc (0-99) mg/dL HDL Cholesterol (40.0-60.0) mg/dL Cholesterol/HDL Ratio Ratio TSH (0.358-3.740) uIU/mL Free T4 (0.76-1.46) ng/dL Total T3 (60-181) ng/dL Cortisol mcg/dL Urine Color (Yellw/Straw) Urine Clarity (Clear) Urine pH (5.0-8.5) Ur Specific Bentley (1.002-1.035) Urine Protein (Neg-Trace) mg/dL Urine Glucose (UA) (Negative) mg/dL Urine Ketones (Negative) mg/dL Urine Occult Blood (Negative) Urine Nitrate (Negative) Urine Bilirubin (Negative) Urine Urobilinogen (Less than 2) mg/dL Ur Leukocyte Esterase (Negative) Urine RBC (0-3) /hpf Urine WBC (0-5) /hpf Ur Squamous Epith Cells (0-5) /hpf Urine Bacteria (None) /hpf Micro UA Comment Ur Microscopic Review Urine Culture Comments Nasal Screen MRSA (PCR) (Negative) Urine Opiates Screen (Neg) Ur Barbiturates Screen (Neg) Phenytoin (10.0-20.0) mcg/mL Ur Amphetamines Screen (Neg) Phenobarbital (15.0-40.0) mcg/mL U Benzodiazepines Scrn (Neg) Urine Cocaine Screen (Neg) U Cannabinoids Screen (Neg) Hepatitis A IgM Ab (Nonreactive) Hep Bs Antigen (Nonreactive) Hep B Core IgM Ab (Nonreactive) Hep C IgG Ab (Nonreactive) Blood Type Blood Type Recheck Antibody Screen 05/11/18 05/12/18 05/12/18 Range/Units 20:44 00:42 04:18 WBC (4.0-11.0) th/mm3 RBC (4.50-5.90) mil/mm3 Hgb (13.0-17.0) gm/dL POC Hgb (Calc) (13.0-17.0) g/dL Hct (39.0-51.0) % POC Hct (39-51.0) % MCV (80.0-100.0) fL MCH (27.0-34.0) pg MCHC (32.0-36.0) % RDW (11.6-17.2) % Plt Count (150-450) th/mm3 MPV (7.0-11.0) fL Prelim Diff (Auto) Neut % (Auto) (16.0-70.0) % Lymph % (Auto) (9.0-44.0) % Harper % (Auto) (0.0-8.0) % Eos % (Auto) (0.0-4.0) % Baso % (Auto) (0.0-2.0) % Neut # (Auto) (1.8-7.7) th/mm3 Lymph # (Auto) (1.0-4.8) th/mm3 Harper # (Auto) (0.0-0.9) th/mm3 Eos # (Auto) (0.0-0.4) th/mm3 Baso # (Auto) (0.0-0.2) th/mm3 WBC Differential Seg Neuts % (Manual) (16-70) % Lymphocytes % (Manual) (9-44) % Monocytes % (Manual) (0-8) % Eosinophils % (Manual) (0-4) % Abs Neuts (Manual) (1.8-7.7) th/mm3 Differential Comment Platelet Estimate (Normal) Platelet Morphology (Normal) RBC Morphology (Normal) PT (9.8-11.6) sec INR Ratio APTT (23.4-31.7) sec Puncture Site Patient Temperature O2 Saturation (90-100) % ABG pH (7.320-7.420) ABG pCO2 (38-42) mmHg ABG pO2 (60-120) mmHg ABG HCO3 (22-26) mmol/L ABG O2 Content (12.0-20.0) Vol % ABG Base Excess (-2-2) mmol/L ABG Methemoglobin (0-2) % David Test Hemoglobin (12.0-16.0) G/DL Carboxyhemoglobin (0-4) % O2 Delivery Device Vent Setting Inspired O2 % Critical Value POC Sodium (137-144) mmol/L Sodium (136-145) meq/L POC Potassium (3.6-5.0) mmol/L Potassium (3.5-5.1) meq/L POC Chloride (102-111) mmol/L Chloride (98-107) meq/L Carbon Dioxide (21.0-32.0) meq/L Anion Gap (5-15) meq/L POC BUN (5-21) mg/dL BUN (7-18) mg/dL Creatinine (0.60-1.30) mg/dL POC Creatinine (0.6-1.3) mg/dL Estimated GFR (>89) mL/min POC Glucose 188 H 131 H 163 H (68-110) mg/dL Random Glucose (74-106) mg/dL Hemoglobin A1c (4.3-6.0) % Lactic Acid (0.4-2.0) mmol/L Calcium (8.5-10.1) mg/dL Phosphorus (2.5-4.9) mg/dL Magnesium (1.5-2.5) mg/dL Total Bilirubin (0.2-1.0) mg/dL Direct Bilirubin (0.0-0.2) mg/dL Indirect Bilirubin (0.0-0.8) mg/dL AST (15-37) U/L ALT (12-78) U/L Alkaline Phosphatase (45-117) U/L Ammonia (11-32) mcmol/L Total Creatine Kinase (39-308) U/L CK-MB (CK-2) (0.5-3.6) ng/mL CK-MB (CK-2) % (0.0-4.0) % Troponin I (0.02-0.05) ng/mL Total Protein (6.4-8.2) g/dL Albumin (3.4-5.0) g/dL Triglycerides (42-150) mg/dL Cholesterol (120-200) mg/dL LDL Cholesterol, Calc (0-99) mg/dL HDL Cholesterol (40.0-60.0) mg/dL Cholesterol/HDL Ratio Ratio TSH (0.358-3.740) uIU/mL Free T4 (0.76-1.46) ng/dL Total T3 (60-181) ng/dL Cortisol mcg/dL Urine Color (Yellw/Straw) Urine Clarity (Clear) Urine pH (5.0-8.5) Ur Specific Bentley (1.002-1.035) Urine Protein (Neg-Trace) mg/dL Urine Glucose (UA) (Negative) mg/dL Urine Ketones (Negative) mg/dL Urine Occult Blood (Negative) Urine Nitrate (Negative) Urine Bilirubin (Negative) Urine Urobilinogen (Less than 2) mg/dL Ur Leukocyte Esterase (Negative) Urine RBC (0-3) /hpf Urine WBC (0-5) /hpf Ur Squamous Epith Cells (0-5) /hpf Urine Bacteria (None) /hpf Micro UA Comment Ur Microscopic Review Urine Culture Comments Nasal Screen MRSA (PCR) (Negative) Urine Opiates Screen (Neg) Ur Barbiturates Screen (Neg) Phenytoin (10.0-20.0) mcg/mL Ur Amphetamines Screen (Neg) Phenobarbital (15.0-40.0) mcg/mL U Benzodiazepines Scrn (Neg) Urine Cocaine Screen (Neg) U Cannabinoids Screen (Neg) Hepatitis A IgM Ab (Nonreactive) Hep Bs Antigen (Nonreactive) Hep B Core IgM Ab (Nonreactive) Hep C IgG Ab (Nonreactive) Blood Type Blood Type Recheck Antibody Screen 05/12/18 05/12/18 05/12/18 Range/Units 04:45 04:45 04:45 WBC 13.9 H (4.0-11.0) th/mm3 RBC 4.52 (4.50-5.90) mil/mm3 Hgb 12.7 L (13.0-17.0) gm/dL POC Hgb (Calc) (13.0-17.0) g/dL Hct 38.6 L (39.0-51.0) % POC Hct (39-51.0) % MCV 85.4 (80.0-100.0) fL MCH 28.0 (27.0-34.0) pg MCHC 32.8 (32.0-36.0) % RDW 14.9 (11.6-17.2) % Plt Count 187 (150-450) th/mm3 MPV 8.0 (7.0-11.0) fL Prelim Diff (Auto) Neut % (Auto) 89.8 H (16.0-70.0) % Lymph % (Auto) 4.9 L (9.0-44.0) % Harper % (Auto) 3.4 (0.0-8.0) % Eos % (Auto) 1.5 (0.0-4.0) % Baso % (Auto) 0.4 (0.0-2.0) % Neut # (Auto) 12.5 H (1.8-7.7) th/mm3 Lymph # (Auto) 0.7 L (1.0-4.8) th/mm3 Harper # (Auto) 0.5 (0.0-0.9) th/mm3 Eos # (Auto) 0.2 (0.0-0.4) th/mm3 Baso # (Auto) 0.1 (0.0-0.2) th/mm3 WBC Differential . Seg Neuts % (Manual) (16-70) % Lymphocytes % (Manual) (9-44) % Monocytes % (Manual) (0-8) % Eosinophils % (Manual) (0-4) % Abs Neuts (Manual) (1.8-7.7) th/mm3 Differential Comment Auto diff final Platelet Estimate (Normal) Platelet Morphology (Normal) RBC Morphology (Normal) PT (9.8-11.6) sec INR Ratio APTT (23.4-31.7) sec Puncture Site Patient Temperature O2 Saturation (90-100) % ABG pH (7.320-7.420) ABG pCO2 (38-42) mmHg ABG pO2 (60-120) mmHg ABG HCO3 (22-26) mmol/L ABG O2 Content (12.0-20.0) Vol % ABG Base Excess (-2-2) mmol/L ABG Methemoglobin (0-2) % David Test Hemoglobin (12.0-16.0) G/DL Carboxyhemoglobin (0-4) % O2 Delivery Device Vent Setting Inspired O2 % Critical Value POC Sodium (137-144) mmol/L Sodium 144 (136-145) meq/L POC Potassium (3.6-5.0) mmol/L Potassium 3.2 L (3.5-5.1) meq/L POC Chloride (102-111) mmol/L Chloride 109 H (98-107) meq/L Carbon Dioxide 27.2 (21.0-32.0) meq/L Anion Gap 8 (5-15) meq/L POC BUN (5-21) mg/dL BUN 11 (7-18) mg/dL Creatinine 0.69 (0.60-1.30) mg/dL POC Creatinine (0.6-1.3) mg/dL Estimated GFR Greater than 89 (>89) mL/min POC Glucose (68-110) mg/dL Random Glucose 211 H (74-106) mg/dL Hemoglobin A1c (4.3-6.0) % Lactic Acid (0.4-2.0) mmol/L Calcium 7.9 L (8.5-10.1) mg/dL Phosphorus 1.7 L (2.5-4.9) mg/dL Magnesium 1.8 (1.5-2.5) mg/dL Total Bilirubin 0.5 (0.2-1.0) mg/dL Direct Bilirubin (0.0-0.2) mg/dL Indirect Bilirubin (0.0-0.8) mg/dL AST 80 H (15-37) U/L ALT 52 (12-78) U/L Alkaline Phosphatase 60 (45-117) U/L Ammonia 17 (11-32) mcmol/L Total Creatine Kinase 721 H (39-308) U/L CK-MB (CK-2) 27.5 H (0.5-3.6) ng/mL CK-MB (CK-2) % 3.8 (0.0-4.0) % Troponin I 16.00 H* (0.02-0.05) ng/mL Total Protein 5.2 L (6.4-8.2) g/dL Albumin 2.1 L (3.4-5.0) g/dL Triglycerides (42-150) mg/dL Cholesterol (120-200) mg/dL LDL Cholesterol, Calc (0-99) mg/dL HDL Cholesterol (40.0-60.0) mg/dL Cholesterol/HDL Ratio Ratio TSH (0.358-3.740) uIU/mL Free T4 (0.76-1.46) ng/dL Total T3 (60-181) ng/dL Cortisol mcg/dL Urine Color (Yellw/Straw) Urine Clarity (Clear) Urine pH (5.0-8.5) Ur Specific Bentley (1.002-1.035) Urine Protein (Neg-Trace) mg/dL Urine Glucose (UA) (Negative) mg/dL Urine Ketones (Negative) mg/dL Urine Occult Blood (Negative) Urine Nitrate (Negative) Urine Bilirubin (Negative) Urine Urobilinogen (Less than 2) mg/dL Ur Leukocyte Esterase (Negative) Urine RBC (0-3) /hpf Urine WBC (0-5) /hpf Ur Squamous Epith Cells (0-5) /hpf Urine Bacteria (None) /hpf Micro UA Comment Ur Microscopic Review Urine Culture Comments Nasal Screen MRSA (PCR) (Negative) Urine Opiates Screen (Neg) Ur Barbiturates Screen (Neg) Phenytoin (10.0-20.0) mcg/mL Ur Amphetamines Screen (Neg) Phenobarbital (15.0-40.0) mcg/mL U Benzodiazepines Scrn (Neg) Urine Cocaine Screen (Neg) U Cannabinoids Screen (Neg) Hepatitis A IgM Ab (Nonreactive) Hep Bs Antigen (Nonreactive) Hep B Core IgM Ab (Nonreactive) Hep C IgG Ab (Nonreactive) Blood Type Blood Type Recheck Antibody Screen 05/12/18 05/12/18 05/12/18 Range/Units 07:00 08:12 11:30 WBC (4.0-11.0) th/mm3 RBC (4.50-5.90) mil/mm3 Hgb (13.0-17.0) gm/dL POC Hgb (Calc) (13.0-17.0) g/dL Hct (39.0-51.0) % POC Hct (39-51.0) % MCV (80.0-100.0) fL MCH (27.0-34.0) pg MCHC (32.0-36.0) % RDW (11.6-17.2) % Plt Count (150-450) th/mm3 MPV (7.0-11.0) fL Prelim Diff (Auto) Neut % (Auto) (16.0-70.0) % Lymph % (Auto) (9.0-44.0) % Harper % (Auto) (0.0-8.0) % Eos % (Auto) (0.0-4.0) % Baso % (Auto) (0.0-2.0) % Neut # (Auto) (1.8-7.7) th/mm3 Lymph # (Auto) (1.0-4.8) th/mm3 Harper # (Auto) (0.0-0.9) th/mm3 Eos # (Auto) (0.0-0.4) th/mm3 Baso # (Auto) (0.0-0.2) th/mm3 WBC Differential Seg Neuts % (Manual) (16-70) % Lymphocytes % (Manual) (9-44) % Monocytes % (Manual) (0-8) % Eosinophils % (Manual) (0-4) % Abs Neuts (Manual) (1.8-7.7) th/mm3 Differential Comment Platelet Estimate (Normal) Platelet Morphology (Normal) RBC Morphology (Normal) PT (9.8-11.6) sec INR Ratio APTT 62.0 H (23.4-31.7) sec Puncture Site Patient Temperature O2 Saturation (90-100) % ABG pH (7.320-7.420) ABG pCO2 (38-42) mmHg ABG pO2 (60-120) mmHg ABG HCO3 (22-26) mmol/L ABG O2 Content (12.0-20.0) Vol % ABG Base Excess (-2-2) mmol/L ABG Methemoglobin (0-2) % David Test Hemoglobin (12.0-16.0) G/DL Carboxyhemoglobin (0-4) % O2 Delivery Device Vent Setting Inspired O2 % Critical Value POC Sodium (137-144) mmol/L Sodium (136-145) meq/L POC Potassium (3.6-5.0) mmol/L Potassium (3.5-5.1) meq/L POC Chloride (102-111) mmol/L Chloride (98-107) meq/L Carbon Dioxide (21.0-32.0) meq/L Anion Gap (5-15) meq/L POC BUN (5-21) mg/dL BUN (7-18) mg/dL Creatinine (0.60-1.30) mg/dL POC Creatinine (0.6-1.3) mg/dL Estimated GFR (>89) mL/min POC Glucose 184 H (68-110) mg/dL Random Glucose (74-106) mg/dL Hemoglobin A1c (4.3-6.0) % Lactic Acid (0.4-2.0) mmol/L Calcium (8.5-10.1) mg/dL Phosphorus 1.8 L (2.5-4.9) mg/dL Magnesium (1.5-2.5) mg/dL Total Bilirubin (0.2-1.0) mg/dL Direct Bilirubin (0.0-0.2) mg/dL Indirect Bilirubin (0.0-0.8) mg/dL AST (15-37) U/L ALT (12-78) U/L Alkaline Phosphatase (45-117) U/L Ammonia (11-32) mcmol/L Total Creatine Kinase (39-308) U/L CK-MB (CK-2) (0.5-3.6) ng/mL CK-MB (CK-2) % (0.0-4.0) % Troponin I (0.02-0.05) ng/mL Total Protein (6.4-8.2) g/dL Albumin (3.4-5.0) g/dL Triglycerides (42-150) mg/dL Cholesterol (120-200) mg/dL LDL Cholesterol, Calc (0-99) mg/dL HDL Cholesterol (40.0-60.0) mg/dL Cholesterol/HDL Ratio Ratio TSH (0.358-3.740) uIU/mL Free T4 (0.76-1.46) ng/dL Total T3 (60-181) ng/dL Cortisol mcg/dL Urine Color (Yellw/Straw) Urine Clarity (Clear) Urine pH (5.0-8.5) Ur Specific Bentley (1.002-1.035) Urine Protein (Neg-Trace) mg/dL Urine Glucose (UA) (Negative) mg/dL Urine Ketones (Negative) mg/dL Urine Occult Blood (Negative) Urine Nitrate (Negative) Urine Bilirubin (Negative) Urine Urobilinogen (Less than 2) mg/dL Ur Leukocyte Esterase (Negative) Urine RBC (0-3) /hpf Urine WBC (0-5) /hpf Ur Squamous Epith Cells (0-5) /hpf Urine Bacteria (None) /hpf Micro UA Comment Ur Microscopic Review Urine Culture Comments Nasal Screen MRSA (PCR) (Negative) Urine Opiates Screen (Neg) Ur Barbiturates Screen (Neg) Phenytoin 10.4 (10.0-20.0) mcg/mL Ur Amphetamines Screen (Neg) Phenobarbital Less than 2.1 L (15.0-40.0) mcg/mL U Benzodiazepines Scrn (Neg) Urine Cocaine Screen (Neg) U Cannabinoids Screen (Neg) Hepatitis A IgM Ab (Nonreactive) Hep Bs Antigen (Nonreactive) Hep B Core IgM Ab (Nonreactive) Hep C IgG Ab (Nonreactive) Blood Type Blood Type Recheck Antibody Screen 05/12/18 05/12/18 05/12/18 Range/Units 11:40 20:27 22:25 WBC (4.0-11.0) th/mm3 RBC (4.50-5.90) mil/mm3 Hgb (13.0-17.0) gm/dL POC Hgb (Calc) (13.0-17.0) g/dL Hct (39.0-51.0) % POC Hct (39-51.0) % MCV (80.0-100.0) fL MCH (27.0-34.0) pg MCHC (32.0-36.0) % RDW (11.6-17.2) % Plt Count (150-450) th/mm3 MPV (7.0-11.0) fL Prelim Diff (Auto) Neut % (Auto) (16.0-70.0) % Lymph % (Auto) (9.0-44.0) % Harper % (Auto) (0.0-8.0) % Eos % (Auto) (0.0-4.0) % Baso % (Auto) (0.0-2.0) % Neut # (Auto) (1.8-7.7) th/mm3 Lymph # (Auto) (1.0-4.8) th/mm3 Harper # (Auto) (0.0-0.9) th/mm3 Eos # (Auto) (0.0-0.4) th/mm3 Baso # (Auto) (0.0-0.2) th/mm3 WBC Differential Seg Neuts % (Manual) (16-70) % Lymphocytes % (Manual) (9-44) % Monocytes % (Manual) (0-8) % Eosinophils % (Manual) (0-4) % Abs Neuts (Manual) (1.8-7.7) th/mm3 Differential Comment Platelet Estimate (Normal) Platelet Morphology (Normal) RBC Morphology (Normal) PT (9.8-11.6) sec INR Ratio APTT 47.9 H D (23.4-31.7) sec Puncture Site Patient Temperature O2 Saturation (90-100) % ABG pH (7.320-7.420) ABG pCO2 (38-42) mmHg ABG pO2 (60-120) mmHg ABG HCO3 (22-26) mmol/L ABG O2 Content (12.0-20.0) Vol % ABG Base Excess (-2-2) mmol/L ABG Methemoglobin (0-2) % David Test Hemoglobin (12.0-16.0) G/DL Carboxyhemoglobin (0-4) % O2 Delivery Device Vent Setting Inspired O2 % Critical Value POC Sodium (137-144) mmol/L Sodium (136-145) meq/L POC Potassium (3.6-5.0) mmol/L Potassium (3.5-5.1) meq/L POC Chloride (102-111) mmol/L Chloride (98-107) meq/L Carbon Dioxide (21.0-32.0) meq/L Anion Gap (5-15) meq/L POC BUN (5-21) mg/dL BUN (7-18) mg/dL Creatinine (0.60-1.30) mg/dL POC Creatinine (0.6-1.3) mg/dL Estimated GFR (>89) mL/min POC Glucose 164 H 217 H (68-110) mg/dL Random Glucose (74-106) mg/dL Hemoglobin A1c (4.3-6.0) % Lactic Acid (0.4-2.0) mmol/L Calcium (8.5-10.1) mg/dL Phosphorus (2.5-4.9) mg/dL Magnesium (1.5-2.5) mg/dL Total Bilirubin (0.2-1.0) mg/dL Direct Bilirubin (0.0-0.2) mg/dL Indirect Bilirubin (0.0-0.8) mg/dL AST (15-37) U/L ALT (12-78) U/L Alkaline Phosphatase (45-117) U/L Ammonia (11-32) mcmol/L Total Creatine Kinase (39-308) U/L CK-MB (CK-2) (0.5-3.6) ng/mL CK-MB (CK-2) % (0.0-4.0) % Troponin I (0.02-0.05) ng/mL Total Protein (6.4-8.2) g/dL Albumin (3.4-5.0) g/dL Triglycerides (42-150) mg/dL Cholesterol (120-200) mg/dL LDL Cholesterol, Calc (0-99) mg/dL HDL Cholesterol (40.0-60.0) mg/dL Cholesterol/HDL Ratio Ratio TSH (0.358-3.740) uIU/mL Free T4 (0.76-1.46) ng/dL Total T3 (60-181) ng/dL Cortisol mcg/dL Urine Color (Yellw/Straw) Urine Clarity (Clear) Urine pH (5.0-8.5) Ur Specific Bentley (1.002-1.035) Urine Protein (Neg-Trace) mg/dL Urine Glucose (UA) (Negative) mg/dL Urine Ketones (Negative) mg/dL Urine Occult Blood (Negative) Urine Nitrate (Negative) Urine Bilirubin (Negative) Urine Urobilinogen (Less than 2) mg/dL Ur Leukocyte Esterase (Negative) Urine RBC (0-3) /hpf Urine WBC (0-5) /hpf Ur Squamous Epith Cells (0-5) /hpf Urine Bacteria (None) /hpf Micro UA Comment Ur Microscopic Review Urine Culture Comments Nasal Screen MRSA (PCR) (Negative) Urine Opiates Screen (Neg) Ur Barbiturates Screen (Neg) Phenytoin (10.0-20.0) mcg/mL Ur Amphetamines Screen (Neg) Phenobarbital (15.0-40.0) mcg/mL U Benzodiazepines Scrn (Neg) Urine Cocaine Screen (Neg) U Cannabinoids Screen (Neg) Hepatitis A IgM Ab (Nonreactive) Hep Bs Antigen (Nonreactive) Hep B Core IgM Ab (Nonreactive) Hep C IgG Ab (Nonreactive) Blood Type Blood Type Recheck Antibody Screen 05/12/18 05/12/18 05/13/18 Range/Units 23:55 23:55 04:25 WBC 15.6 H (4.0-11.0) th/mm3 RBC 4.44 L (4.50-5.90) mil/mm3 Hgb 12.7 L (13.0-17.0) gm/dL POC Hgb (Calc) (13.0-17.0) g/dL Hct 37.5 L (39.0-51.0) % POC Hct (39-51.0) % MCV 84.5 (80.0-100.0) fL MCH 28.5 (27.0-34.0) pg MCHC 33.8 (32.0-36.0) % RDW 15.0 (11.6-17.2) % Plt Count 220 (150-450) th/mm3 MPV 8.7 (7.0-11.0) fL Prelim Diff (Auto) Neut % (Auto) 89.3 H (16.0-70.0) % Lymph % (Auto) 4.8 L (9.0-44.0) % Harper % (Auto) 4.8 (0.0-8.0) % Eos % (Auto) 0.8 (0.0-4.0) % Baso % (Auto) 0.3 (0.0-2.0) % Neut # (Auto) 13.9 H (1.8-7.7) th/mm3 Lymph # (Auto) 0.7 L (1.0-4.8) th/mm3 Harper # (Auto) 0.7 (0.0-0.9) th/mm3 Eos # (Auto) 0.1 (0.0-0.4) th/mm3 Baso # (Auto) 0.1 (0.0-0.2) th/mm3 WBC Differential . Seg Neuts % (Manual) (16-70) % Lymphocytes % (Manual) (9-44) % Monocytes % (Manual) (0-8) % Eosinophils % (Manual) (0-4) % Abs Neuts (Manual) (1.8-7.7) th/mm3 Differential Comment Auto diff final Platelet Estimate (Normal) Platelet Morphology (Normal) RBC Morphology (Normal) PT (9.8-11.6) sec INR Ratio APTT (23.4-31.7) sec Puncture Site Patient Temperature O2 Saturation (90-100) % ABG pH (7.320-7.420) ABG pCO2 (38-42) mmHg ABG pO2 (60-120) mmHg ABG HCO3 (22-26) mmol/L ABG O2 Content (12.0-20.0) Vol % ABG Base Excess (-2-2) mmol/L ABG Methemoglobin (0-2) % David Test Hemoglobin (12.0-16.0) G/DL Carboxyhemoglobin (0-4) % O2 Delivery Device Vent Setting Inspired O2 % Critical Value POC Sodium (137-144) mmol/L Sodium (136-145) meq/L POC Potassium (3.6-5.0) mmol/L Potassium 3.7 (3.5-5.1) meq/L POC Chloride (102-111) mmol/L Chloride (98-107) meq/L Carbon Dioxide (21.0-32.0) meq/L Anion Gap (5-15) meq/L POC BUN (5-21) mg/dL BUN (7-18) mg/dL Creatinine (0.60-1.30) mg/dL POC Creatinine (0.6-1.3) mg/dL Estimated GFR (>89) mL/min POC Glucose 216 H (68-110) mg/dL Random Glucose (74-106) mg/dL Hemoglobin A1c (4.3-6.0) % Lactic Acid (0.4-2.0) mmol/L Calcium (8.5-10.1) mg/dL Phosphorus 2.3 L (2.5-4.9) mg/dL Magnesium (1.5-2.5) mg/dL Total Bilirubin (0.2-1.0) mg/dL Direct Bilirubin (0.0-0.2) mg/dL Indirect Bilirubin (0.0-0.8) mg/dL AST (15-37) U/L ALT (12-78) U/L Alkaline Phosphatase (45-117) U/L Ammonia (11-32) mcmol/L Total Creatine Kinase (39-308) U/L CK-MB (CK-2) (0.5-3.6) ng/mL CK-MB (CK-2) % (0.0-4.0) % Troponin I (0.02-0.05) ng/mL Total Protein (6.4-8.2) g/dL Albumin (3.4-5.0) g/dL Triglycerides (42-150) mg/dL Cholesterol (120-200) mg/dL LDL Cholesterol, Calc (0-99) mg/dL HDL Cholesterol (40.0-60.0) mg/dL Cholesterol/HDL Ratio Ratio TSH (0.358-3.740) uIU/mL Free T4 (0.76-1.46) ng/dL Total T3 (60-181) ng/dL Cortisol mcg/dL Urine Color (Yellw/Straw) Urine Clarity (Clear) Urine pH (5.0-8.5) Ur Specific Bentley (1.002-1.035) Urine Protein (Neg-Trace) mg/dL Urine Glucose (UA) (Negative) mg/dL Urine Ketones (Negative) mg/dL Urine Occult Blood (Negative) Urine Nitrate (Negative) Urine Bilirubin (Negative) Urine Urobilinogen (Less than 2) mg/dL Ur Leukocyte Esterase (Negative) Urine RBC (0-3) /hpf Urine WBC (0-5) /hpf Ur Squamous Epith Cells (0-5) /hpf Urine Bacteria (None) /hpf Micro UA Comment Ur Microscopic Review Urine Culture Comments Nasal Screen MRSA (PCR) (Negative) Urine Opiates Screen (Neg) Ur Barbiturates Screen (Neg) Phenytoin (10.0-20.0) mcg/mL Ur Amphetamines Screen (Neg) Phenobarbital (15.0-40.0) mcg/mL U Benzodiazepines Scrn (Neg) Urine Cocaine Screen (Neg) U Cannabinoids Screen (Neg) Hepatitis A IgM Ab (Nonreactive) Hep Bs Antigen (Nonreactive) Hep B Core IgM Ab (Nonreactive) Hep C IgG Ab (Nonreactive) Blood Type Blood Type Recheck Antibody Screen 05/13/18 05/13/18 05/13/18 Range/Units 04:25 04:25 04:26 WBC (4.0-11.0) th/mm3 RBC (4.50-5.90) mil/mm3 Hgb (13.0-17.0) gm/dL POC Hgb (Calc) (13.0-17.0) g/dL Hct (39.0-51.0) % POC Hct (39-51.0) % MCV (80.0-100.0) fL MCH (27.0-34.0) pg MCHC (32.0-36.0) % RDW (11.6-17.2) % Plt Count (150-450) th/mm3 MPV (7.0-11.0) fL Prelim Diff (Auto) Neut % (Auto) (16.0-70.0) % Lymph % (Auto) (9.0-44.0) % Harper % (Auto) (0.0-8.0) % Eos % (Auto) (0.0-4.0) % Baso % (Auto) (0.0-2.0) % Neut # (Auto) (1.8-7.7) th/mm3 Lymph # (Auto) (1.0-4.8) th/mm3 Harper # (Auto) (0.0-0.9) th/mm3 Eos # (Auto) (0.0-0.4) th/mm3 Baso # (Auto) (0.0-0.2) th/mm3 WBC Differential Seg Neuts % (Manual) (16-70) % Lymphocytes % (Manual) (9-44) % Monocytes % (Manual) (0-8) % Eosinophils % (Manual) (0-4) % Abs Neuts (Manual) (1.8-7.7) th/mm3 Differential Comment Platelet Estimate (Normal) Platelet Morphology (Normal) RBC Morphology (Normal) PT (9.8-11.6) sec INR Ratio APTT 43.0 H (23.4-31.7) sec Puncture Site Patient Temperature O2 Saturation (90-100) % ABG pH (7.320-7.420) ABG pCO2 (38-42) mmHg ABG pO2 (60-120) mmHg ABG HCO3 (22-26) mmol/L ABG O2 Content (12.0-20.0) Vol % ABG Base Excess (-2-2) mmol/L ABG Methemoglobin (0-2) % David Test Hemoglobin (12.0-16.0) G/DL Carboxyhemoglobin (0-4) % O2 Delivery Device Vent Setting Inspired O2 % Critical Value POC Sodium (137-144) mmol/L Sodium 145 (136-145) meq/L POC Potassium (3.6-5.0) mmol/L Potassium 3.9 (3.5-5.1) meq/L POC Chloride (102-111) mmol/L Chloride 109 H (98-107) meq/L Carbon Dioxide 29.9 (21.0-32.0) meq/L Anion Gap 6 (5-15) meq/L POC BUN (5-21) mg/dL BUN 15 (7-18) mg/dL Creatinine 0.81 (0.60-1.30) mg/dL POC Creatinine (0.6-1.3) mg/dL Estimated GFR Greater than 89 (>89) mL/min POC Glucose 238 H (68-110) mg/dL Random Glucose 257 H (74-106) mg/dL Hemoglobin A1c (4.3-6.0) % Lactic Acid (0.4-2.0) mmol/L Calcium 8.1 L (8.5-10.1) mg/dL Phosphorus 2.1 L (2.5-4.9) mg/dL Magnesium 2.2 (1.5-2.5) mg/dL Total Bilirubin 0.4 (0.2-1.0) mg/dL Direct Bilirubin (0.0-0.2) mg/dL Indirect Bilirubin (0.0-0.8) mg/dL AST 67 H (15-37) U/L ALT 51 (12-78) U/L Alkaline Phosphatase 85 (45-117) U/L Ammonia (11-32) mcmol/L Total Creatine Kinase (39-308) U/L CK-MB (CK-2) (0.5-3.6) ng/mL CK-MB (CK-2) % (0.0-4.0) % Troponin I (0.02-0.05) ng/mL Total Protein 5.5 L (6.4-8.2) g/dL Albumin 2.0 L (3.4-5.0) g/dL Triglycerides (42-150) mg/dL Cholesterol (120-200) mg/dL LDL Cholesterol, Calc (0-99) mg/dL HDL Cholesterol (40.0-60.0) mg/dL Cholesterol/HDL Ratio Ratio TSH (0.358-3.740) uIU/mL Free T4 (0.76-1.46) ng/dL Total T3 (60-181) ng/dL Cortisol mcg/dL Urine Color (Yellw/Straw) Urine Clarity (Clear) Urine pH (5.0-8.5) Ur Specific Bentley (1.002-1.035) Urine Protein (Neg-Trace) mg/dL Urine Glucose (UA) (Negative) mg/dL Urine Ketones (Negative) mg/dL Urine Occult Blood (Negative) Urine Nitrate (Negative) Urine Bilirubin (Negative) Urine Urobilinogen (Less than 2) mg/dL Ur Leukocyte Esterase (Negative) Urine RBC (0-3) /hpf Urine WBC (0-5) /hpf Ur Squamous Epith Cells (0-5) /hpf Urine Bacteria (None) /hpf Micro UA Comment Ur Microscopic Review Urine Culture Comments Nasal Screen MRSA (PCR) (Negative) Urine Opiates Screen (Neg) Ur Barbiturates Screen (Neg) Phenytoin 12.7 (10.0-20.0) mcg/mL Ur Amphetamines Screen (Neg) Phenobarbital 3.1 L (15.0-40.0) mcg/mL U Benzodiazepines Scrn (Neg) Urine Cocaine Screen (Neg) U Cannabinoids Screen (Neg) Hepatitis A IgM Ab (Nonreactive) Hep Bs Antigen (Nonreactive) Hep B Core IgM Ab (Nonreactive) Hep C IgG Ab (Nonreactive) Blood Type Blood Type Recheck Antibody Screen 05/13/18 05/13/18 05/13/18 Range/Units 07:09 07:52 09:20 WBC (4.0-11.0) th/mm3 RBC (4.50-5.90) mil/mm3 Hgb (13.0-17.0) gm/dL POC Hgb (Calc) (13.0-17.0) g/dL Hct (39.0-51.0) % POC Hct (39-51.0) % MCV (80.0-100.0) fL MCH (27.0-34.0) pg MCHC (32.0-36.0) % RDW (11.6-17.2) % Plt Count (150-450) th/mm3 MPV (7.0-11.0) fL Prelim Diff (Auto) Neut % (Auto) (16.0-70.0) % Lymph % (Auto) (9.0-44.0) % Harper % (Auto) (0.0-8.0) % Eos % (Auto) (0.0-4.0) % Baso % (Auto) (0.0-2.0) % Neut # (Auto) (1.8-7.7) th/mm3 Lymph # (Auto) (1.0-4.8) th/mm3 Harper # (Auto) (0.0-0.9) th/mm3 Eos # (Auto) (0.0-0.4) th/mm3 Baso # (Auto) (0.0-0.2) th/mm3 WBC Differential Seg Neuts % (Manual) (16-70) % Lymphocytes % (Manual) (9-44) % Monocytes % (Manual) (0-8) % Eosinophils % (Manual) (0-4) % Abs Neuts (Manual) (1.8-7.7) th/mm3 Differential Comment Platelet Estimate (Normal) Platelet Morphology (Normal) RBC Morphology (Normal) PT (9.8-11.6) sec INR Ratio APTT (23.4-31.7) sec Puncture Site Janey Patient Temperature 98.6 O2 Saturation 97 (90-100) % ABG pH 7.46 H (7.320-7.420) ABG pCO2 35 L (38-42) mmHg ABG pO2 123 H (60-120) mmHg ABG HCO3 25 (22-26) mmol/L ABG O2 Content 17.6 (12.0-20.0) Vol % ABG Base Excess 1.2 (-2-2) mmol/L ABG Methemoglobin 1.4 (0-2) % David Test Present Hemoglobin 12.9 (12.0-16.0) G/DL Carboxyhemoglobin 0.7 (0-4) % O2 Delivery Device Ventilator Vent Setting See comments Inspired O2 40 % Critical Value No POC Sodium (137-144) mmol/L Sodium (136-145) meq/L POC Potassium (3.6-5.0) mmol/L Potassium (3.5-5.1) meq/L POC Chloride (102-111) mmol/L Chloride (98-107) meq/L Carbon Dioxide (21.0-32.0) meq/L Anion Gap (5-15) meq/L POC BUN (5-21) mg/dL BUN (7-18) mg/dL Creatinine (0.60-1.30) mg/dL POC Creatinine (0.6-1.3) mg/dL Estimated GFR (>89) mL/min POC Glucose 237 H (68-110) mg/dL Random Glucose (74-106) mg/dL Hemoglobin A1c (4.3-6.0) % Lactic Acid (0.4-2.0) mmol/L Calcium (8.5-10.1) mg/dL Phosphorus (2.5-4.9) mg/dL Magnesium (1.5-2.5) mg/dL Total Bilirubin (0.2-1.0) mg/dL Direct Bilirubin (0.0-0.2) mg/dL Indirect Bilirubin (0.0-0.8) mg/dL AST (15-37) U/L ALT (12-78) U/L Alkaline Phosphatase (45-117) U/L Ammonia 11 (11-32) mcmol/L Total Creatine Kinase (39-308) U/L CK-MB (CK-2) (0.5-3.6) ng/mL CK-MB (CK-2) % (0.0-4.0) % Troponin I (0.02-0.05) ng/mL Total Protein (6.4-8.2) g/dL Albumin (3.4-5.0) g/dL Triglycerides (42-150) mg/dL Cholesterol (120-200) mg/dL LDL Cholesterol, Calc (0-99) mg/dL HDL Cholesterol (40.0-60.0) mg/dL Cholesterol/HDL Ratio Ratio TSH (0.358-3.740) uIU/mL Free T4 (0.76-1.46) ng/dL Total T3 (60-181) ng/dL Cortisol mcg/dL Urine Color (Yellw/Straw) Urine Clarity (Clear) Urine pH (5.0-8.5) Ur Specific Bentley (1.002-1.035) Urine Protein (Neg-Trace) mg/dL Urine Glucose (UA) (Negative) mg/dL Urine Ketones (Negative) mg/dL Urine Occult Blood (Negative) Urine Nitrate (Negative) Urine Bilirubin (Negative) Urine Urobilinogen (Less than 2) mg/dL Ur Leukocyte Esterase (Negative) Urine RBC (0-3) /hpf Urine WBC (0-5) /hpf Ur Squamous Epith Cells (0-5) /hpf Urine Bacteria (None) /hpf Micro UA Comment Ur Microscopic Review Urine Culture Comments Nasal Screen MRSA (PCR) (Negative) Urine Opiates Screen (Neg) Ur Barbiturates Screen (Neg) Phenytoin (10.0-20.0) mcg/mL Ur Amphetamines Screen (Neg) Phenobarbital (15.0-40.0) mcg/mL U Benzodiazepines Scrn (Neg) Urine Cocaine Screen (Neg) U Cannabinoids Screen (Neg) Hepatitis A IgM Ab (Nonreactive) Hep Bs Antigen (Nonreactive) Hep B Core IgM Ab (Nonreactive) Hep C IgG Ab (Nonreactive) Blood Type Blood Type Recheck Antibody Screen 05/13/18 05/13/18 05/13/18 Range/Units 09:20 11:51 16:11 WBC (4.0-11.0) th/mm3 RBC (4.50-5.90) mil/mm3 Hgb (13.0-17.0) gm/dL POC Hgb (Calc) (13.0-17.0) g/dL Hct (39.0-51.0) % POC Hct (39-51.0) % MCV (80.0-100.0) fL MCH (27.0-34.0) pg MCHC (32.0-36.0) % RDW (11.6-17.2) % Plt Count (150-450) th/mm3 MPV (7.0-11.0) fL Prelim Diff (Auto) Neut % (Auto) (16.0-70.0) % Lymph % (Auto) (9.0-44.0) % Harper % (Auto) (0.0-8.0) % Eos % (Auto) (0.0-4.0) % Baso % (Auto) (0.0-2.0) % Neut # (Auto) (1.8-7.7) th/mm3 Lymph # (Auto) (1.0-4.8) th/mm3 Harper # (Auto) (0.0-0.9) th/mm3 Eos # (Auto) (0.0-0.4) th/mm3 Baso # (Auto) (0.0-0.2) th/mm3 WBC Differential Seg Neuts % (Manual) (16-70) % Lymphocytes % (Manual) (9-44) % Monocytes % (Manual) (0-8) % Eosinophils % (Manual) (0-4) % Abs Neuts (Manual) (1.8-7.7) th/mm3 Differential Comment Platelet Estimate (Normal) Platelet Morphology (Normal) RBC Morphology (Normal) PT (9.8-11.6) sec INR Ratio APTT (23.4-31.7) sec Puncture Site Patient Temperature O2 Saturation (90-100) % ABG pH (7.320-7.420) ABG pCO2 (38-42) mmHg ABG pO2 (60-120) mmHg ABG HCO3 (22-26) mmol/L ABG O2 Content (12.0-20.0) Vol % ABG Base Excess (-2-2) mmol/L ABG Methemoglobin (0-2) % David Test Hemoglobin (12.0-16.0) G/DL Carboxyhemoglobin (0-4) % O2 Delivery Device Vent Setting Inspired O2 % Critical Value POC Sodium (137-144) mmol/L Sodium (136-145) meq/L POC Potassium (3.6-5.0) mmol/L Potassium (3.5-5.1) meq/L POC Chloride (102-111) mmol/L Chloride (98-107) meq/L Carbon Dioxide (21.0-32.0) meq/L Anion Gap (5-15) meq/L POC BUN (5-21) mg/dL BUN (7-18) mg/dL Creatinine (0.60-1.30) mg/dL POC Creatinine (0.6-1.3) mg/dL Estimated GFR (>89) mL/min POC Glucose 304 H 179 H (68-110) mg/dL Random Glucose (74-106) mg/dL Hemoglobin A1c (4.3-6.0) % Lactic Acid (0.4-2.0) mmol/L Calcium (8.5-10.1) mg/dL Phosphorus (2.5-4.9) mg/dL Magnesium (1.5-2.5) mg/dL Total Bilirubin (0.2-1.0) mg/dL Direct Bilirubin (0.0-0.2) mg/dL Indirect Bilirubin (0.0-0.8) mg/dL AST (15-37) U/L ALT (12-78) U/L Alkaline Phosphatase (45-117) U/L Ammonia (11-32) mcmol/L Total Creatine Kinase (39-308) U/L CK-MB (CK-2) (0.5-3.6) ng/mL CK-MB (CK-2) % (0.0-4.0) % Troponin I (0.02-0.05) ng/mL Total Protein (6.4-8.2) g/dL Albumin (3.4-5.0) g/dL Triglycerides (42-150) mg/dL Cholesterol (120-200) mg/dL LDL Cholesterol, Calc (0-99) mg/dL HDL Cholesterol (40.0-60.0) mg/dL Cholesterol/HDL Ratio Ratio TSH (0.358-3.740) uIU/mL Free T4 (0.76-1.46) ng/dL Total T3 (60-181) ng/dL Cortisol 23.8 mcg/dL Urine Color (Yellw/Straw) Urine Clarity (Clear) Urine pH (5.0-8.5) Ur Specific Bentley (1.002-1.035) Urine Protein (Neg-Trace) mg/dL Urine Glucose (UA) (Negative) mg/dL Urine Ketones (Negative) mg/dL Urine Occult Blood (Negative) Urine Nitrate (Negative) Urine Bilirubin (Negative) Urine Urobilinogen (Less than 2) mg/dL Ur Leukocyte Esterase (Negative) Urine RBC (0-3) /hpf Urine WBC (0-5) /hpf Ur Squamous Epith Cells (0-5) /hpf Urine Bacteria (None) /hpf Micro UA Comment Ur Microscopic Review Urine Culture Comments Nasal Screen MRSA (PCR) (Negative) Urine Opiates Screen (Neg) Ur Barbiturates Screen (Neg) Phenytoin (10.0-20.0) mcg/mL Ur Amphetamines Screen (Neg) Phenobarbital (15.0-40.0) mcg/mL U Benzodiazepines Scrn (Neg) Urine Cocaine Screen (Neg) U Cannabinoids Screen (Neg) Hepatitis A IgM Ab (Nonreactive) Hep Bs Antigen (Nonreactive) Hep B Core IgM Ab (Nonreactive) Hep C IgG Ab (Nonreactive) Blood Type Blood Type Recheck Antibody Screen 05/13/18 05/13/18 05/14/18 Range/Units 19:58 23:57 04:05 WBC (4.0-11.0) th/mm3 RBC (4.50-5.90) mil/mm3 Hgb (13.0-17.0) gm/dL POC Hgb (Calc) (13.0-17.0) g/dL Hct (39.0-51.0) % POC Hct (39-51.0) % MCV (80.0-100.0) fL MCH (27.0-34.0) pg MCHC (32.0-36.0) % RDW (11.6-17.2) % Plt Count (150-450) th/mm3 MPV (7.0-11.0) fL Prelim Diff (Auto) Neut % (Auto) (16.0-70.0) % Lymph % (Auto) (9.0-44.0) % Harper % (Auto) (0.0-8.0) % Eos % (Auto) (0.0-4.0) % Baso % (Auto) (0.0-2.0) % Neut # (Auto) (1.8-7.7) th/mm3 Lymph # (Auto) (1.0-4.8) th/mm3 Harper # (Auto) (0.0-0.9) th/mm3 Eos # (Auto) (0.0-0.4) th/mm3 Baso # (Auto) (0.0-0.2) th/mm3 WBC Differential Seg Neuts % (Manual) (16-70) % Lymphocytes % (Manual) (9-44) % Monocytes % (Manual) (0-8) % Eosinophils % (Manual) (0-4) % Abs Neuts (Manual) (1.8-7.7) th/mm3 Differential Comment Platelet Estimate (Normal) Platelet Morphology (Normal) RBC Morphology (Normal) PT (9.8-11.6) sec INR Ratio APTT (23.4-31.7) sec Puncture Site Patient Temperature O2 Saturation (90-100) % ABG pH (7.320-7.420) ABG pCO2 (38-42) mmHg ABG pO2 (60-120) mmHg ABG HCO3 (22-26) mmol/L ABG O2 Content (12.0-20.0) Vol % ABG Base Excess (-2-2) mmol/L ABG Methemoglobin (0-2) % David Test Hemoglobin (12.0-16.0) G/DL Carboxyhemoglobin (0-4) % O2 Delivery Device Vent Setting Inspired O2 % Critical Value POC Sodium (137-144) mmol/L Sodium 143 (136-145) meq/L POC Potassium (3.6-5.0) mmol/L Potassium 3.7 (3.5-5.1) meq/L POC Chloride (102-111) mmol/L Chloride 110 H (98-107) meq/L Carbon Dioxide 27.0 (21.0-32.0) meq/L Anion Gap 6 (5-15) meq/L POC BUN (5-21) mg/dL BUN 16 (7-18) mg/dL Creatinine 0.65 (0.60-1.30) mg/dL POC Creatinine (0.6-1.3) mg/dL Estimated GFR Greater than 89 (>89) mL/min POC Glucose 201 H 173 H (68-110) mg/dL Random Glucose 234 H (74-106) mg/dL Hemoglobin A1c (4.3-6.0) % Lactic Acid (0.4-2.0) mmol/L Calcium 8.1 L (8.5-10.1) mg/dL Phosphorus 2.2 L (2.5-4.9) mg/dL Magnesium 2.0 (1.5-2.5) mg/dL Total Bilirubin (0.2-1.0) mg/dL Direct Bilirubin (0.0-0.2) mg/dL Indirect Bilirubin (0.0-0.8) mg/dL AST (15-37) U/L ALT (12-78) U/L Alkaline Phosphatase (45-117) U/L Ammonia (11-32) mcmol/L Total Creatine Kinase (39-308) U/L CK-MB (CK-2) (0.5-3.6) ng/mL CK-MB (CK-2) % (0.0-4.0) % Troponin I 12.50 H* (0.02-0.05) ng/mL Total Protein (6.4-8.2) g/dL Albumin (3.4-5.0) g/dL Triglycerides (42-150) mg/dL Cholesterol (120-200) mg/dL LDL Cholesterol, Calc (0-99) mg/dL HDL Cholesterol (40.0-60.0) mg/dL Cholesterol/HDL Ratio Ratio TSH (0.358-3.740) uIU/mL Free T4 (0.76-1.46) ng/dL Total T3 (60-181) ng/dL Cortisol mcg/dL Urine Color (Yellw/Straw) Urine Clarity (Clear) Urine pH (5.0-8.5) Ur Specific Bentley (1.002-1.035) Urine Protein (Neg-Trace) mg/dL Urine Glucose (UA) (Negative) mg/dL Urine Ketones (Negative) mg/dL Urine Occult Blood (Negative) Urine Nitrate (Negative) Urine Bilirubin (Negative) Urine Urobilinogen (Less than 2) mg/dL Ur Leukocyte Esterase (Negative) Urine RBC (0-3) /hpf Urine WBC (0-5) /hpf Ur Squamous Epith Cells (0-5) /hpf Urine Bacteria (None) /hpf Micro UA Comment Ur Microscopic Review Urine Culture Comments Nasal Screen MRSA (PCR) (Negative) Urine Opiates Screen (Neg) Ur Barbiturates Screen (Neg) Phenytoin 12.4 (10.0-20.0) mcg/mL Ur Amphetamines Screen (Neg) Phenobarbital 7.8 L (15.0-40.0) mcg/mL U Benzodiazepines Scrn (Neg) Urine Cocaine Screen (Neg) U Cannabinoids Screen (Neg) Hepatitis A IgM Ab (Nonreactive) Hep Bs Antigen (Nonreactive) Hep B Core IgM Ab (Nonreactive) Hep C IgG Ab (Nonreactive) Blood Type Blood Type Recheck Antibody Screen 05/14/18 05/14/18 05/14/18 Range/Units 04:05 04:05 04:23 WBC 11.6 H (4.0-11.0) th/mm3 RBC 4.26 L (4.50-5.90) mil/mm3 Hgb 12.2 L (13.0-17.0) gm/dL POC Hgb (Calc) (13.0-17.0) g/dL Hct 36.3 L (39.0-51.0) % POC Hct (39-51.0) % MCV 85.1 (80.0-100.0) fL MCH 28.5 (27.0-34.0) pg MCHC 33.6 (32.0-36.0) % RDW 15.1 (11.6-17.2) % Plt Count 200 (150-450) th/mm3 MPV 8.9 (7.0-11.0) fL Prelim Diff (Auto) Neut % (Auto) 81.1 H (16.0-70.0) % Lymph % (Auto) 7.6 L (9.0-44.0) % Harper % (Auto) 7.3 (0.0-8.0) % Eos % (Auto) 3.6 (0.0-4.0) % Baso % (Auto) 0.4 (0.0-2.0) % Neut # (Auto) 9.4 H (1.8-7.7) th/mm3 Lymph # (Auto) 0.9 L (1.0-4.8) th/mm3 Harper # (Auto) 0.8 (0.0-0.9) th/mm3 Eos # (Auto) 0.4 (0.0-0.4) th/mm3 Baso # (Auto) 0.0 (0.0-0.2) th/mm3 WBC Differential . Seg Neuts % (Manual) (16-70) % Lymphocytes % (Manual) (9-44) % Monocytes % (Manual) (0-8) % Eosinophils % (Manual) (0-4) % Abs Neuts (Manual) (1.8-7.7) th/mm3 Differential Comment Auto diff final Platelet Estimate (Normal) Platelet Morphology (Normal) RBC Morphology (Normal) PT (9.8-11.6) sec INR Ratio APTT 42.0 H (23.4-31.7) sec Puncture Site Patient Temperature O2 Saturation (90-100) % ABG pH (7.320-7.420) ABG pCO2 (38-42) mmHg ABG pO2 (60-120) mmHg ABG HCO3 (22-26) mmol/L ABG O2 Content (12.0-20.0) Vol % ABG Base Excess (-2-2) mmol/L ABG Methemoglobin (0-2) % David Test Hemoglobin (12.0-16.0) G/DL Carboxyhemoglobin (0-4) % O2 Delivery Device Vent Setting Inspired O2 % Critical Value POC Sodium (137-144) mmol/L Sodium (136-145) meq/L POC Potassium (3.6-5.0) mmol/L Potassium (3.5-5.1) meq/L POC Chloride (102-111) mmol/L Chloride (98-107) meq/L Carbon Dioxide (21.0-32.0) meq/L Anion Gap (5-15) meq/L POC BUN (5-21) mg/dL BUN (7-18) mg/dL Creatinine (0.60-1.30) mg/dL POC Creatinine (0.6-1.3) mg/dL Estimated GFR (>89) mL/min POC Glucose 209 H (68-110) mg/dL Random Glucose (74-106) mg/dL Hemoglobin A1c (4.3-6.0) % Lactic Acid (0.4-2.0) mmol/L Calcium (8.5-10.1) mg/dL Phosphorus (2.5-4.9) mg/dL Magnesium (1.5-2.5) mg/dL Total Bilirubin (0.2-1.0) mg/dL Direct Bilirubin (0.0-0.2) mg/dL Indirect Bilirubin (0.0-0.8) mg/dL AST (15-37) U/L ALT (12-78) U/L Alkaline Phosphatase (45-117) U/L Ammonia (11-32) mcmol/L Total Creatine Kinase (39-308) U/L CK-MB (CK-2) (0.5-3.6) ng/mL CK-MB (CK-2) % (0.0-4.0) % Troponin I (0.02-0.05) ng/mL Total Protein (6.4-8.2) g/dL Albumin (3.4-5.0) g/dL Triglycerides (42-150) mg/dL Cholesterol (120-200) mg/dL LDL Cholesterol, Calc (0-99) mg/dL HDL Cholesterol (40.0-60.0) mg/dL Cholesterol/HDL Ratio Ratio TSH (0.358-3.740) uIU/mL Free T4 (0.76-1.46) ng/dL Total T3 (60-181) ng/dL Cortisol mcg/dL Urine Color (Yellw/Straw) Urine Clarity (Clear) Urine pH (5.0-8.5) Ur Specific Bentley (1.002-1.035) Urine Protein (Neg-Trace) mg/dL Urine Glucose (UA) (Negative) mg/dL Urine Ketones (Negative) mg/dL Urine Occult Blood (Negative) Urine Nitrate (Negative) Urine Bilirubin (Negative) Urine Urobilinogen (Less than 2) mg/dL Ur Leukocyte Esterase (Negative) Urine RBC (0-3) /hpf Urine WBC (0-5) /hpf Ur Squamous Epith Cells (0-5) /hpf Urine Bacteria (None) /hpf Micro UA Comment Ur Microscopic Review Urine Culture Comments Nasal Screen MRSA (PCR) (Negative) Urine Opiates Screen (Neg) Ur Barbiturates Screen (Neg) Phenytoin (10.0-20.0) mcg/mL Ur Amphetamines Screen (Neg) Phenobarbital (15.0-40.0) mcg/mL U Benzodiazepines Scrn (Neg) Urine Cocaine Screen (Neg) U Cannabinoids Screen (Neg) Hepatitis A IgM Ab (Nonreactive) Hep Bs Antigen (Nonreactive) Hep B Core IgM Ab (Nonreactive) Hep C IgG Ab (Nonreactive) Blood Type Blood Type Recheck Antibody Screen 05/14/18 05/14/18 Range/Units 05:33 08:28 WBC (4.0-11.0) th/mm3 RBC (4.50-5.90) mil/mm3 Hgb (13.0-17.0) gm/dL POC Hgb (Calc) (13.0-17.0) g/dL Hct (39.0-51.0) % POC Hct (39-51.0) % MCV (80.0-100.0) fL MCH (27.0-34.0) pg MCHC (32.0-36.0) % RDW (11.6-17.2) % Plt Count (150-450) th/mm3 MPV (7.0-11.0) fL Prelim Diff (Auto) Neut % (Auto) (16.0-70.0) % Lymph % (Auto) (9.0-44.0) % Harper % (Auto) (0.0-8.0) % Eos % (Auto) (0.0-4.0) % Baso % (Auto) (0.0-2.0) % Neut # (Auto) (1.8-7.7) th/mm3 Lymph # (Auto) (1.0-4.8) th/mm3 Harper # (Auto) (0.0-0.9) th/mm3 Eos # (Auto) (0.0-0.4) th/mm3 Baso # (Auto) (0.0-0.2) th/mm3 WBC Differential Seg Neuts % (Manual) (16-70) % Lymphocytes % (Manual) (9-44) % Monocytes % (Manual) (0-8) % Eosinophils % (Manual) (0-4) % Abs Neuts (Manual) (1.8-7.7) th/mm3 Differential Comment Platelet Estimate (Normal) Platelet Morphology (Normal) RBC Morphology (Normal) PT (9.8-11.6) sec INR Ratio APTT (23.4-31.7) sec Puncture Site Patient Temperature O2 Saturation (90-100) % ABG pH (7.320-7.420) ABG pCO2 (38-42) mmHg ABG pO2 (60-120) mmHg ABG HCO3 (22-26) mmol/L ABG O2 Content (12.0-20.0) Vol % ABG Base Excess (-2-2) mmol/L ABG Methemoglobin (0-2) % David Test Hemoglobin (12.0-16.0) G/DL Carboxyhemoglobin (0-4) % O2 Delivery Device Vent Setting Inspired O2 % Critical Value POC Sodium (137-144) mmol/L Sodium (136-145) meq/L POC Potassium (3.6-5.0) mmol/L Potassium (3.5-5.1) meq/L POC Chloride (102-111) mmol/L Chloride (98-107) meq/L Carbon Dioxide (21.0-32.0) meq/L Anion Gap (5-15) meq/L POC BUN (5-21) mg/dL BUN (7-18) mg/dL Creatinine (0.60-1.30) mg/dL POC Creatinine (0.6-1.3) mg/dL Estimated GFR (>89) mL/min POC Glucose 245 H 219 H (68-110) mg/dL Random Glucose (74-106) mg/dL Hemoglobin A1c (4.3-6.0) % Lactic Acid (0.4-2.0) mmol/L Calcium (8.5-10.1) mg/dL Phosphorus (2.5-4.9) mg/dL Magnesium (1.5-2.5) mg/dL Total Bilirubin (0.2-1.0) mg/dL Direct Bilirubin (0.0-0.2) mg/dL Indirect Bilirubin (0.0-0.8) mg/dL AST (15-37) U/L ALT (12-78) U/L Alkaline Phosphatase (45-117) U/L Ammonia (11-32) mcmol/L Total Creatine Kinase (39-308) U/L CK-MB (CK-2) (0.5-3.6) ng/mL CK-MB (CK-2) % (0.0-4.0) % Troponin I (0.02-0.05) ng/mL Total Protein (6.4-8.2) g/dL Albumin (3.4-5.0) g/dL Triglycerides (42-150) mg/dL Cholesterol (120-200) mg/dL LDL Cholesterol, Calc (0-99) mg/dL HDL Cholesterol (40.0-60.0) mg/dL Cholesterol/HDL Ratio Ratio TSH (0.358-3.740) uIU/mL Free T4 (0.76-1.46) ng/dL Total T3 (60-181) ng/dL Cortisol mcg/dL Urine Color (Yellw/Straw) Urine Clarity (Clear) Urine pH (5.0-8.5) Ur Specific Bentley (1.002-1.035) Urine Protein (Neg-Trace) mg/dL Urine Glucose (UA) (Negative) mg/dL Urine Ketones (Negative) mg/dL Urine Occult Blood (Negative) Urine Nitrate (Negative) Urine Bilirubin (Negative) Urine Urobilinogen (Less than 2) mg/dL Ur Leukocyte Esterase (Negative) Urine RBC (0-3) /hpf Urine WBC (0-5) /hpf Ur Squamous Epith Cells (0-5) /hpf Urine Bacteria (None) /hpf Micro UA Comment Ur Microscopic Review Urine Culture Comments Nasal Screen MRSA (PCR) (Negative) Urine Opiates Screen (Neg) Ur Barbiturates Screen (Neg) Phenytoin (10.0-20.0) mcg/mL Ur Amphetamines Screen (Neg) Phenobarbital (15.0-40.0) mcg/mL U Benzodiazepines Scrn (Neg) Urine Cocaine Screen (Neg) U Cannabinoids Screen (Neg) Hepatitis A IgM Ab (Nonreactive) Hep Bs Antigen (Nonreactive) Hep B Core IgM Ab (Nonreactive) Hep C IgG Ab (Nonreactive) Blood Type Blood Type Recheck Antibody Screen Imaging Data Radiologist's impression: Chest X-Ray 05/08/18 20:43 CONCLUSION: 1. ET tube in good position. 2. Gastric tube side-port is in the lower chest and the tube needs to be advanced at least [address] 05/08/18 20:43 CONCLUSION: 1. Punctate hyperdensity characteristic of hemorrhage in the right mid araseli. 2. No acute findings in the supratentorial brain. . Cervical Spine CT 05/08/18 20:44 CONCLUSION: 1. Moderate degenerative changes at C6-7. 2. Otherwise negative exam. Head MRI 05/10/18 00:00 CONCLUSION: 1. No evidence of acute hemorrhage within the right araseli. 2. No acute infarct, acute hemorrhage, midline shift or extra-axial fluid collection. 3. Mucosal thickening involving the left maxillary sinus, bilateral anterior ethmoid air cells and bilateral sphenoid sinuses. 4. Some fluid within the mastoid air cells bilaterally. Chest X-Ray 05/10/18 06:00 CONCLUSION: Infiltrating the medial right lower lobe or right middle lobe. Infiltrate is increased from the previous study Head MRA 05/10/18 06:52 CONCLUSION: 1. Negative MRA Cow ([place]) non contrast. Chest X-Ray 05/11/18 06:00 CONCLUSION: Bilateral pleural effusions right greater than left. ET tube in good position. Chest X-Ray 05/12/18 06:00 CONCLUSION: No change in bilateral opacity likely representing a combination of mild pulmonary edema/pleural effusions. Chest X-Ray 05/12/18 11:03 CONCLUSION: 1. Central line without pneumothorax. 2. Unchanged bilateral pleural effusions and bibasilar pulmonary infiltrates. Chest X-Ray 05/13/18 06:00 CONCLUSION: No significant interval change with persistent bilateral pulmonary parenchymal opacity and small bilateral pleural effusions. Discharge Plan Discharge Disposition Patient Disposition: 30 Still Patient Discharge Condition Condition: Serious Discharge Details Diagnosis: ST elevation (STEMI) myocardial infarction involving left anterior descending coronary artery, Cardiac arrest, [place] hemorrhage Physicians Team ED Provider: Hunter Rojas Primary Care Provider: Joseph Calhoun Attending Provider: Campos Palmer Other Providers: Maged Cardenas ; Jose Garcia ; Pablo Connor ; Dior Stringer Discharge Interventions Interventions: ED Discharge Assessment Last Done: 05/08/18 22:33 Status ED Status: Left Department Discharge Information Discharge Date/Time: 05/08/18 22:39
--- NOTE | 2018-05-08 21:12 | CT ---
EXAM DATE: 05/08/2018 9:06 PM EST AGE/SEX: 63 years / Male INDICATIONS: Trauma, fall. Post code. CLINICAL DATA: This is the patient's initial encounter. Patient reports that signs and symptoms have been present for 1 day and indicates a pain score of Nonresponsive. MEDICAL/SURGICAL HISTORY: Non-responsive. Non-responsive. RADIATION DOSE: 34.11 CTDI (mGy) COMPARISON: [facility] – [place], CT BRAIN W/O CONTRAST, 11/18/2016. . TECHNIQUE: CT of the head without contrast. Using automated exposure control and adjustment of the mA and/or kV according to patient size, radiation dose was kept as low as reasonably achievable to ob tain optimal diagnostic quality images. DICOM format image data is available electronically for revi ew and comparison. FINDINGS: Cerebrum: The ventricles are normal for age. No evidence of midline shift, mass lesion, hemorrhage or acute infarction. No extraaxial fluid collections are seen. Posterior Fossa: There is a punctate oval 3 mm hyperdensity in the right mid araseli which is a new fin ding compared to prior CT in 2017, characteristic of a hemorrhage. The cerebellum is intact. 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 Extracranial: The visualized portion of the orbits is intact. Skull: The calvaria is intact. No evidence of skull fracture. CONCLUSION: 1. Punctate hyperdensity characteristic of hemorrhage in the right mid araseli. 2. No acute findings in the supratentorial brain. . Electronically signed by: Ritesh Langston MD 05/08/2018 9:11 PM EST
--- NOTE | 2018-05-08 21:18 | CT ---
EXAM DATE: 05/08/2018 9:12 PM EST AGE/SEX: 63 years / Male INDICATIONS: Trauma, fall. Post code. CLINICAL DATA: This is the patient's initial encounter. Patient reports that signs and symptoms have been present for 1 day and indicates a pain score of Nonresponsive. MEDICAL/SURGICAL HISTORY: Non-responsive. Non-responsive. RADIATION DOSE: 24.23 CTDI (mGy) COMPARISON: No prior exams available for comparison. TECHNIQUE: Contiguous axial images were obtained using helical multirow detector technique. The vol umetric data was post-processed with multiplanar reconstruction in oblique axial, sagittal, and coron al planes. Using automated exposure control and adjustment of the mA and/or kV according to patient s ize, radiation dose was kept as low as reasonably achievable to obtain optimal diagnostic quality latisha ges. DICOM format image data is available electronically for review and comparison. FINDINGS: There is normal alignment of the vertebral bodies of the cervical spine and preservation of vertebra l body height. Moderate narrowing of the C6-7 interspace with sclerosis of the endplates and moderate osteophyte formation anterior and posterior. The posterior elements are in normal alignment without evidence of locked or perched facets. The atlantoaxial articulation is intact.. C2-3: No fracture seen. The neural foramina are patent. C3-4: No fracture seen. The neural foramina are patent. C4-5: No fracture seen. The neural foramina are patent. C5-6: No fracture seen. The neural foramina are patent. C6-7: No fracture seen. The neural foramina are patent. C7-T1: No fracture seen. The neural foramina are patent. CONCLUSION: 1. Moderate degenerative changes at C6-7. 2. Otherwise negative exam. Electronically signed by: Ritesh Langston MD 05/08/2018 9:16 PM EST
[2018-05-08 21:21] LABS: Activated Partial Thrombo Time 24.5 sec (23.4-31.7); INR 1.1 Ratio; Prothrombin Time 11.2 sec (9.8-11.6)
--- NOTE | 2018-05-08 21:23 | P.HPCC ---
History of Present Illness Primary Care Physician: Joseph Calhoun MD History of Present Illness: 63-year-old male presents to emergency department intubated after VF/VT arrest. He had to be defibrillated twice in the field, afterwards clear STEMI criteria was called by EVAC. Apparently heard a collapse in the next room found the patient unresponsive called 9 1. Apparently total downtime was about 10 minutes and had a very quick Rask. Blood pressure was little low and dopamine drip was started in the field. Patient also had amiodarone started in the field. Initially the STEMI alert was called brain demonstrated punctate hyperdensity characteristic of hemorrhage in the right mid araseli in the STEMI alert was canceled. The patient has been admitted to ICU for hypothermia protocol treatment post cardiac arrest. Review of Systems unobtainable due to endotracheal tube, unobtainable due to mental condition PMFSH - History History Provided By: Condominium Manager / EMT - Medical / Surgical Hx Neg / Unobtainable Surgical History: Unable to Obtain - Medical History Medical History: Medical History (Last Updated 05/08/18 @ 20:46 by Marcella Urban) Patient denies medical problems - Surgical History Surgical History: Surgical History (Last Updated 05/08/18 @ 20:46 by Marcella Urban) No history of previous surgery - Tobacco History Smoking Status: Unknown if ever smoked - Alcohol History How Often Do You Have a Drink Containing Alcohol: Unable to Obtain - Substance Use History Substance History: Unable to Obtain - Travel History Recent Travel in the [place] Within the Last 8 Weeks: No Recent Travel Out of the Country Within the Last 8 Weeks: No - Immunization History Tetanus Immunization: Unable to Assess Medications and Allergies Active Medications: Active Medications Current Medications Acetaminophen (Tylenol) 650 mg PO Q6H PRN PRN Reason: PAIN 1-5 AND/OR FEVER >101F Al Hydroxide/Mg Hydroxide (Milk Of Magnmir Liq) 30 ml PO Q12H PRN PRN Reason: Mild Constipation Albuterol (Duoneb Neb (Prn)) 1 ampul NEB Q2HR NEB PRN PRN Reason: WHEEZING Bisacodyl (Dulcolax Supp) 10 mg RECTAL DAILY PRN PRN Reason: SEVERE CONSITIPATION Buspirone HCl (Buspar) 15 mg NG/OG BID PRN PRN Reason: SHIVERING Chlorhexidine Gluconate (Peridex 0.12% Oral Kit) 15 ml OROPHARYNG BID@0800, 2000 [facility] Chlorhexidine Gluconate (Chlorhexidine 2% Cloth) 3 pack TOPICAL DAILY@0400 JIM Stop: 05/14/18 03:59 Chlorhexidine Gluconate (Chlorhexidine 2% Cloth) 3 pack TOPICAL DAILY@0400 PRN PRN Reason: Extra cloth needed Stop: 05/14/18 03:59 Famotidine (Pepcid Pf Inj) 20 mg IV.PUSH Q12HR JIM Dopamine HCl/Dextrose (Dopamine 800 Mg/500 Ml Premix) 800 mg in 500 mls @ 9.185 mls/hr IV.CONT TITRATE PRN; Protocol PRN Reason: Per Protocol Last Admin: 05/08/18 21:42 Dose: 3 mcg/kg/min, 9.19 mls/hr Amiodarone HCl 450 mg/ (Dextrose) 250 mls @ 33.33 mls/hr IV.CONT TITRATE PRN; Protocol PRN Reason: Per Protocol Last Admin: 05/08/18 21:41 Dose: 1 mg/min, 33.33 mls/hr Sodium Chloride (Ns Inj) 1,000 mls @ 84 mls/hr IV.CONT .[id number] [facility] Propofol (Diprivan 1000 Mg/100 Ml Inj) 1,000 mg in 100 mls @ 2.449 mls/hr IV.CONT TITRATE PRN; Protocol PRN Reason: Per Protocol Midazolam HCl (Versed Inj) 50 mg in 50 mls @ 2 mls/hr IV.CONT TITRATE PRN; Protocol PRN Reason: Per Protocol Cisatracurium Besylate 100 mg/ (Sodium Chloride) 250 mls @ 40.41 mls/hr IV.CONT TITRATE PRN; Protocol PRN Reason: Per Protocol Norepinephrine Bitartrate 4 mg (/ Sodium Chloride) 250 mls @ 7.5 mls/hr IV.SIG TITRATE PRN; Protocol PRN Reason: Per Protocol Lactulose (Lactulose Liq) 30 ml PO DAILY PRN PRN Reason: SEVERE CONSITIPATION Lorazepam (Ativan Inj) 1 mg IV.PUSH Q1H PRN PRN Reason: SEE LABEL COMMENTS Meperidine HCl (Demerol Inj) 25 mg IV.PUSH Q2H PRN PRN Reason: SHIVERING Miscellaneous Medication () 1 each OROPHARYNG 0000,0400,1200,1600 [facility] Morphine Sulfate (Morphine Inj) 2 mg IV.PUSH Q2H PRN PRN Reason: PAIN SCALE 6 TO 10 Ondansetron HCl (Zofran Inj) 4 mg IV.PUSH Q6H PRN PRN Reason: NAUSEA OR VOMITING Senna/Docusate Sodium (Lizbeth-Colace) 1 tab PO BID JIM Sennosides (Senokot) 17.2 mg PO Q12H PRN PRN Reason: Moderate Constipation Sodium Chloride (Ns Flush) 2 ml IV.FLUSH BID JIM Sodium Chloride (Ns Flush) 2 ml IV.FLUSH PRN PRN PRN Reason: FLUSH AFTER USING IV ACCESS Terbutaline Sulfate (Brethine Inj) 1 mg SQ UNSCH PRN PRN Reason: For Extravasation Allergies Allergy/AdvReac Type Severity Reaction Status Date / Time No Known Allergies Allergy Uncoded 02/17/15 12:05 Home Medications Medication Instructions Recorded Confirmed Type No Known Home Medications 05/08/18 05/08/18 History Results - Labs CBC & Chem 7: 05/08/18 20:45 05/09/18 02:25 Labs: Short CBC 05/08/18 Range/Units 20:45 WBC 13.6 H (4.0-11.0) th/mm3 Hgb 15.2 (13.0-17.0) gm/dL Hct 45.6 (39.0-51.0) % Plt Count 327 (150-450) th/mm3 - Imaging Impressions Chest X-Ray 05/08/18 20:43 CONCLUSION: 1. ET tube in good position. 2. Gastric tube side-port is in the lower chest and the tube needs to be advanced at least [address] 05/08/18 20:43 CONCLUSION: 1. Punctate hyperdensity characteristic of hemorrhage in the right mid araseli. 2. No acute findings in the supratentorial brain. . Cervical Spine CT 05/08/18 20:44 CONCLUSION: 1. Moderate degenerative changes at C6-7. 2. Otherwise negative exam. Exam Vital signs: Vital Signs 05/08/18 20:42 Pulse Rate 93 H Respiratory Rate 24 Blood Pressure 142/65 H Pulse Oximetry 100 Intake & Output 05/08/18 05/08/18 05/09/18 06:59 18:59 06:59 Weight 81.647 kg - Constitutional severe distress - Routine HEENT Exam Head: Present: normocephalic, atraumatic Eye: Present: PERRL ENT: Present: mucous membranes moist Comments: Pupils 2 mm bilaterally sluggishly reactive - Routine Neck Exam Present: supple. Absent: JVD, carotid bruit - Routine Respiratory Exam Present: patient mechanically ventilated. Absent: rhonchi, stridor, wheezes - Routine Cardiovascular Exam Present: RRR, S1, S2. Absent: gallop, rubs - Routine Abdominal Exam Present: soft, normoactive bowel sounds - Routine Extremities Exam Absent: cyanosis, clubbing - Routine Skin Exam Present: intact. Absent: cyanosis, erythema - Routine Neurological Exam Present: altered mental status, moving all extremities Responds to painful stimuli with some questionable myoclonic jerks Caprini VTE Risk Assessment Caprini VTE Risk Assessment: Moderate/High Risk (score >= 2) Caprini Risk Assessment Model: Point Value = 1 Point Value = 2 Point Value = 3 Point Value = 5 Age 41-60 Minor surgery BMI > 25 kg/m2 Swollen legs Varicose veins or History of unexplained or recurrent spontaneous Oral contraceptives or hormone replacement Sepsis (< 1 month) Serious lung disease, including pneumonia (< 1 month) Abnormal pulmonary function Acute myocardial infarction Congestive heart failure (< 1 month) History of inflammatory bowel disease Medical patient at bed rest Age 61-74 Arthroscopic surgery Major open surgery (> 45 min) Laparoscopic surgery (> 45 min) Malignancy Confined to bed (> 72 hours) Immobilizing plaster cast Central venous access Age >= 75 History of VTE Family history of VTE Factor V Leiden Prothrombin [id number] Lupus anticoagulant Anticardiolipin antibodies Elevated serum homocysteine Heparin-induced thrombocytopenia Other congenital or acquired thrombophilia Stroke (< 1 month) Elective arthroplasty Hip, pelvis, or leg fracture Acute spinal cord injury (< 1 month) Prophylaxis Regimen: Total Risk Factor Score Risk Level Prophylaxis Regimen 0-1 Low Early ambulation 2 Moderate Order ONE of the following: *Sequential Compression Device (SCD) *Heparin 5000 units SQ BID 3-4 Higher Order ONE of the following medications: *Heparin 5000 units SQ TID *Enoxaparin/Lovenox 40 mg SQ daily (WT < 150 kg, CrCl > 30 mL/min) *Enoxaparin/Lovenox 30 mg SQ daily (WT < 150 kg, CrCl > 10-29 mL/min) *Enoxaparin/Lovenox 30 mg SQ BID (WT < 150 kg, CrCl > 30 mL/min) AND/OR *Sequential Compression Device (SCD) 5 or more Highest Order ONE of the following medications: *Heparin 5000 units SQ TID (Preferred with Epidurals) *Enoxaparin/Lovenox 40 mg SQ daily (WT < 150 kg, CrCl > 30 mL/min) *Enoxaparin/Lovenox 30 mg SQ daily (WT < 150 kg, CrCl > 10-29 mL/min) *Enoxaparin/Lovenox 30 mg SQ BID (WT < 150 kg, CrCl > 30 mL/min) AND *Sequential Compression Device (SCD) Assessment and Plan - Assessment and Plan Plan: Respiratory failure -Intubated for airway protection -No weaning until neurologically and hemodynamically improved -Vent bundle -DuoNeb's as needed Cardiac arrest -Not a candidate for emergent cardiac catheterization due to punctate hemorrhage of the brainstem -Therapeutic hypothermia -Further cardiac workup if neurologically improve -Hold anticoagulation due to above -Dr. Blum consulted by ED Serge fib -Amiodarone drip Diabetes mellitus -Insulin drip Brainstem punctate hemorrhage -Neurology consultation -Hold anticoagulation and antiplatelet -Supportive care DVT GI prophylaxis -Teds SCDs -No pharmacological DVT prophylaxis due to hemorrhagic lesions and brainstem -Pepcid 35 minutes of critical care
[2018-05-08 21:25] LABS: Alanine Aminotransferase 86 U/L (12-78)
[2018-05-08 21:29] LABS: Alkaline Phosphatase 88 U/L (45-117); Total Protein 6.4 g/dL (6.4-8.2); Troponin I 0.38 ng/mL (0.02-0.05)
[2018-05-08 21:35] LABS: Albumin 3.4 g/dL (3.4-5.0); Anion Gap 17 meq/L (5-15); Aspartate Aminotransferase 107 U/L (15-37); Blood Urea Nitrogen 7 mg/dL (7-18); Calcium 8.9 mg/dL (8.5-10.1); Carbon Dioxide 20.5 meq/L (21.0-32.0); Chloride 100 meq/L (98-107); Glomerular Filtration Rate 65 mL/min (>89); Glucose,Random 328 mg/dL (74-106); Potassium 3.2 meq/L (3.5-5.1); Sodium 137 meq/L (136-145)
[2018-05-08] MEDS ORDERED: Bisacodyl 10 MG Supp RECTAL PRN (21:38)
[2018-05-08 21:47] LABS: Eosinophils 9 % (0-4); Lymphocytes 21 % (9-44); Monocytes 7 % (0-8); Platelet Estimate Normal (Normal); Platelet Morphology Normal (Normal); RBC Morphology Normal (Normal)
[2018-05-08 22:44] LABS: ABG PCO2 42 mmHg (38-42); ABG PO2 244 mmHg (60-120)
[2018-05-08 22:46] LABS: Bacteria,Urine Occasional /hpf; Bilirubin,Urine Negative (Negative); Clarity,Urine Clear (Clear); Color,Urine Straw (Yellw/Straw); Glucose,Urine (UA) 500 or Greater mg/dL (Negative); Leukocyte Esterase,Urine Negative (Negative); Nitrite,Urine Negative (Negative); Specific Gravity,Urine 1.005 (1.002-1.035); Squamous Epithelial Cell,Urine <1 /hpf (0-5)
[2018-05-08] MEDS: Chlorhexidine Gluconate 2% 1 Pack (2 Cloths) TOPICAL SCH (23:00)
[2018-05-08] MEDS: Cisatracurium Inj 100 MG in Sodium Chlor 0.9% Inj 240 ML IV.CONT PRN (23:30)
[2018-05-08] MEDS ORDERED: Norepinephrine Inj 4 MG in Sodium Chlor 0.9% Inj 246 ML IV.SIG PRN (23:57)
[2018-05-09] MEDS ORDERED: Norepinephrine Inj 4 MG in Sodium Chlor 0.9% Inj 246 ML IV.SIG PRN (00:03)
[2018-05-09] MEDS: Oral Hygiene Kit OROPHARYNG SCH ×5 (00:53→23:54)
[2018-05-09] MEDS: Propofol 1000 mg/100 ml Inj 1,000 MG/100 ML BOTTLE IV.CONT PRN ×4 (00:54→22:54)
[2018-05-09] MEDS: Midazolam 50 MG/50 ML Inj 50 MG/50 ML BAG IV.CONT PRN ×2 (00:55→14:40)
[2018-05-09] MEDS: Sod Chloride 0.9% Inj 1,000 ML IV.CONT SCH ×4 (00:56→21:10)
[2018-05-09 02:28] LABS: Albumin 4.1 g/dL (3.4-5.0); Total Protein 7.5 g/dL (6.4-8.2)
[2018-05-09 03:11] LABS: Alanine Aminotransferase 116 U/L (12-78); Albumin 3.9 g/dL (3.4-5.0); Anion Gap 10 meq/L (5-15); Aspartate Aminotransferase 146 U/L (15-37); Blood Urea Nitrogen 10 mg/dL (7-18); Calcium 8.7 mg/dL (8.5-10.1); Carbon Dioxide 23.9 meq/L (21.0-32.0); Chloride 101 meq/L (98-107); Glomerular Filtration Rate 87 mL/min (>89); Glucose,Random 336 mg/dL (74-106); Magnesium 1.7 mg/dL (1.5-2.5); Potassium 3.5 meq/L (3.5-5.1); Sodium 135 meq/L (136-145)
[2018-05-09 03:16] LABS: Alkaline Phosphatase 90 U/L (45-117); Phosphorus 1.7 mg/dL (2.5-4.9); Total Protein 7.2 g/dL (6.4-8.2)
[2018-05-09 03:30] LABS: Troponin I 2.86 ng/mL (0.02-0.05)
[2018-05-09] MEDS ORDERED: Chlorhexidine Gluconate 2% 1 Pack (2 Cloths) TOPICAL PRN (04:00)
[2018-05-09] MEDS: Cisatracurium Inj 100 MG in Sodium Chlor 0.9% Inj 240 ML IV.CONT PRN (04:30)
[2018-05-09] MEDS ORDERED: Dextrose 50% in Water 50 ML Vial IV.PUSH PRN (05:05)
[2018-05-09] MEDS ORDERED: Insulin Regular (For Infusion) 100 UNIT in Sodium Chlor 0.9% Inj 99 ML IV.CONT PRN (05:05)
[2018-05-09 05:13] LABS: Baso % (Auto) 0.1 % (0.0-2.0); Eos % (Auto) 0.2 % (0.0-4.0); Hematocrit 45.9 % (39.0-51.0); Hemoglobin 15.2 gm/dL (13.0-17.0); Lymph # (Auto) 0.4 th/mm3 (1.0-4.8); Lymph % (Auto) 2.3 % (9.0-44.0); Mean Corpuscular HGB Conc 33.1 % (32.0-36.0); Mean Corpuscular Hemoglobin 28.3 pg (27.0-34.0); Mean Corpuscular Volume 85.6 fL (80.0-100.0); Mean Platelet Volume 7.4 fL (7.0-11.0); Mono # (Auto) 1.1 th/mm3 (0.0-0.9); Mono % (Auto) 5.8 % (0.0-8.0); Neut # (Auto) 16.7 th/mm3 (1.8-7.7); Neut % (Auto) 91.6 % (16.0-70.0); Platelet Count 275 th/mm3 (150-450); Red Blood Count 5.36 mil/mm3 (4.50-5.90); Red Cell Distribution Width 14.1 % (11.6-17.2); White Blood Count 18.3 th/mm3 (4.0-11.0)
[2018-05-09 05:28] LABS: Activated Partial Thrombo Time 27.7 sec (23.4-31.7); INR 1.2 Ratio; Prothrombin Time 11.8 sec (9.8-11.6)
--- NOTE | 2018-05-09 06:52 | P.CONNEU ---
History of Present Illness Service: Neurology Primary Care Provider: Joseph Calhoun MD [facility] - History History Provided By: Timber Framer Helper / EMT - Medical History Medical History: Medical History (Last Updated 05/08/18 @ 20:46 by Marcella Urban) Patient denies medical problems - Surgical History Surgical History: Surgical History (Last Updated 05/08/18 @ 20:46 by Marcella Urban) No history of previous surgery - Tobacco History Smoking Status: Unknown if ever smoked - Alcohol History How Often Do You Have a Drink Containing Alcohol: Unable to Obtain - Substance Use History Substance History: Unable to Obtain - Travel History Recent Travel in the [place] Within the Last 8 Weeks: No Recent Travel Out of the Country Within the Last 8 Weeks: No - Immunization History Tetanus Immunization: Unable to Assess Medications and Allergies Active Medications: Active Medications Acetaminophen (Tylenol) 650 mg PO Q6H PRN PRN Reason: PAIN 1-5 AND/OR FEVER >101F Al Hydroxide/Mg Hydroxide (Milk Of Magnmir Liq) 30 ml PO Q12H PRN PRN Reason: Mild Constipation Albuterol (Duoneb Neb (Prn)) 1 ampul NEB Q2HR NEB PRN PRN Reason: WHEEZING Bisacodyl (Dulcolax Supp) 10 mg RECTAL DAILY PRN PRN Reason: SEVERE CONSITIPATION Buspirone HCl (Buspar) 15 mg NG/OG BID PRN PRN Reason: SHIVERING Chlorhexidine Gluconate (Peridex 0.12% Oral Kit) 15 ml OROPHARYNG BID@0800, 2000 JIM Chlorhexidine Gluconate (Chlorhexidine 2% Cloth) 3 pack TOPICAL DAILY@0400 JIM Stop: 05/14/18 03:59 Chlorhexidine Gluconate (Chlorhexidine 2% Cloth) 3 pack TOPICAL DAILY@0400 PRN PRN Reason: Extra cloth needed Stop: 05/14/18 03:59 Dextrose (D50w Vial) 50 ml IV.PUSH UNSCH PRN PRN Reason: PER HYPOGLYCEMIA PROTOCOL Famotidine (Pepcid Pf Inj) 20 mg IV.PUSH Q12HR JIM Dopamine HCl/Dextrose (Dopamine 800 Mg/500 Ml Premix) 800 mg in 500 mls @ 9.185 mls/hr IV.CONT TITRATE PRN; Protocol PRN Reason: Per Protocol Last Admin: 05/08/18 21:42 Dose: 3 mcg/kg/min, 9.19 mls/hr Amiodarone HCl 450 mg/ (Dextrose) 250 mls @ 33.33 mls/hr IV.CONT TITRATE PRN; Protocol PRN Reason: Per Protocol Last Admin: 05/09/18 06:38 Dose: 0.5 mg/min, 16.66 mls/hr Sodium Chloride (Ns Inj) 1,000 mls @ 84 mls/hr IV.CONT .[id number] [facility] Last Admin: 05/09/18 03:52 Dose: Not Given Propofol (Diprivan 1000 Mg/100 Ml Inj) 1,000 mg in 100 mls @ 2.449 mls/hr IV.CONT TITRATE PRN; Protocol PRN Reason: Per Protocol Last Admin: 05/09/18 00:54 Dose: 20 mcg/kg/min, 9.8 mls/hr Midazolam HCl (Versed Inj) 50 mg in 50 mls @ 2 mls/hr IV.CONT TITRATE PRN; Protocol PRN Reason: Per Protocol Last Admin: 05/09/18 00:55 Dose: 2 mg/hr, 2 mls/hr Cisatracurium Besylate 100 mg/ (Sodium Chloride) 250 mls @ 40.41 mls/hr IV.CONT TITRATE PRN; Protocol PRN Reason: Per Protocol Last Admin: 05/09/18 04:30 Dose: 4 mcg/kg/min, 48.98 mls/hr Norepinephrine Bitartrate 4 mg (/ Sodium Chloride) 250 mls @ 7.5 mls/hr IV.SIG TITRATE PRN; Protocol PRN Reason: Per Protocol Fentanyl (Fentanyl 10 Mcg/Ml Premix Drip) 2,500 mcg in 250 mls @ 5 mls/hr IV.SIG TITRATE PRN; Protocol PRN Reason: Per Protocol Insulin Human Regular 100 unit (/ Sodium Chloride) 100 mls @ 0.5 mls/hr IV.CONT TITRATE PRN; Protocol PRN Reason: See protocol Last Admin: 05/09/18 06:04 Dose: 0.5 unit/hr, 0.5 mls/hr Lactulose (Lactulose Liq) 30 ml PO DAILY PRN PRN Reason: SEVERE CONSITIPATION Lorazepam (Ativan Inj) 1 mg IV.PUSH Q1H PRN PRN Reason: SEE LABEL COMMENTS Meperidine HCl (Demerol Inj) 25 mg IV.PUSH Q2H PRN PRN Reason: SHIVERING Midazolam HCl (Versed Inj) 2 mg IV.PUSH Q1H PRN PRN Reason: SEE LABEL COMMENTS Miscellaneous Medication () 1 each OROPHARYNG 0000,0400,1200,1600 JIM Last Admin: 05/09/18 03:54 Dose: 1 each Morphine Sulfate (Morphine Inj) 2 mg IV.PUSH Q2H PRN PRN Reason: PAIN SCALE 6 TO 10 Ondansetron HCl (Zofran Inj) 4 mg IV.PUSH Q6H PRN PRN Reason: NAUSEA OR VOMITING Senna/Docusate Sodium (Lizbeth-Colace) 1 tab PO BID [facility] Sennosides (Senokot) 17.2 mg PO Q12H PRN PRN Reason: Moderate Constipation Sodium Chloride (Ns Flush) 2 ml IV.FLUSH BID [facility] Sodium Chloride (Ns Flush) 2 ml IV.FLUSH PRN PRN PRN Reason: FLUSH AFTER USING IV ACCESS Terbutaline Sulfate (Brethine Inj) 1 mg SQ UNSCH PRN PRN Reason: For Extravasation Allergies Allergy/AdvReac Type Severity Reaction Status Date / Time No Known Allergies Allergy Uncoded 02/17/15 12:05 Home Medications Medication Instructions Recorded Confirmed Type No Known Home Medications 05/08/18 05/08/18 History Exam Vital signs: Vital Signs 05/08/18 20:35 05/08/18 20:42 05/08/18 20:55 Temperature Pulse Rate 93 H Respiratory Rate 25 H 24 Blood Pressure 142/65 H Pulse Oximetry 100 100 100 05/08/18 21:00 05/08/18 21:34 05/08/18 21:53 Temperature Pulse Rate 84 112 H 86 Respiratory Rate 14 14 Blood Pressure 121/62 126/69 Pulse Oximetry 100 100 100 05/08/18 22:05 05/08/18 22:20 05/08/18 22:31 Temperature Pulse Rate 92 H Respiratory Rate 20 15 Blood Pressure Pulse Oximetry 100 94 L 91 L 05/08/18 22:45 05/08/18 23:00 05/08/18 23:15 Temperature 97.0 F L 97.2 F L 97.2 F L Pulse Rate 87 85 94 H Respiratory Rate 22 16 31 H Blood Pressure 135/70 135/82 138/75 Pulse Oximetry 89 L 95 98 05/08/18 23:30 05/08/18 23:40 05/08/18 23:45 Temperature 96.6 F L 96.1 F L 95.9 F L Pulse Rate 95 H 96 H 92 H Respiratory Rate 24 46 H 29 H Blood Pressure 179/83 H 148/74 H 140/68 Pulse Oximetry 92 L 82 L 89 L 05/09/18 00:00 05/09/18 00:15 05/09/18 00:30 Temperature 95.4 F L 93.7 F L 92.7 F L Pulse Rate 85 87 80 Respiratory Rate 16 15 15 Blood Pressure 136/80 150/83 H 148/82 H Pulse Oximetry 99 100 100 05/09/18 00:45 05/09/18 01:00 05/09/18 01:15 Temperature 91.6 F L 90.7 F L 90.0 F L Pulse Rate 75 71 67 Respiratory Rate 14 14 14 Blood Pressure 136/77 127/72 119/71 Pulse Oximetry 100 100 100 05/09/18 01:30 05/09/18 01:45 05/09/18 02:00 Temperature 89.2 F L 90.5 F L 90.3 F L Pulse Rate 66 68 66 Respiratory Rate 14 14 14 Blood Pressure 112/65 109/62 108/65 Pulse Oximetry 100 100 100 05/09/18 02:15 05/09/18 02:30 05/09/18 02:45 Temperature 90.5 F L 90.5 F L 90.3 F L Pulse Rate 65 65 65 Respiratory Rate 14 14 14 Blood Pressure 108/63 107/62 109/63 Pulse Oximetry 99 99 99 05/09/18 03:00 05/09/18 03:15 05/09/18 03:30 Temperature 90.3 F L 90.3 F L 90.3 F L Pulse Rate 63 63 62 Respiratory Rate 14 14 14 Blood Pressure 111/64 109/65 116/70 Pulse Oximetry 98 98 99 05/09/18 03:45 05/09/18 04:00 05/09/18 04:15 Temperature 90.3 F L 90.3 F L 90.3 F L Pulse Rate 62 62 61 Respiratory Rate 14 14 14 Blood Pressure 115/71 118/71 117/68 Pulse Oximetry 98 98 99 05/09/18 04:28 05/09/18 04:30 05/09/18 04:45 Temperature 90.3 F L 90.1 F L Pulse Rate 59 L 60 Respiratory Rate 14 14 14 Blood Pressure 117/69 118/71 Pulse Oximetry 98 99 99 05/09/18 05:00 05/09/18 05:15 05/09/18 05:30 Temperature 90.1 F L 90.1 F L 90.3 F L Pulse Rate 60 60 59 L Respiratory Rate 14 14 14 Blood Pressure 119/72 121/74 120/67 Pulse Oximetry 99 100 100 05/09/18 05:45 05/09/18 06:00 05/09/18 06:15 Temperature 90.3 F L 90.1 F L 90.1 F L Pulse Rate 57 L 58 L 60 Respiratory Rate 14 14 14 Blood Pressure 120/70 122/72 120/70 Pulse Oximetry 100 100 100 Intake & Output 05/08/18 05/08/18 05/09/18 06:59 18:59 06:59 Intake Total 750 / 750 Output Total 2075 / 2075 Balance -1325 / -1325 Weight 79 kg Intake: IV 750 / 750 Cordarone Inj 450 MG In D5W Inj 500 / 500 241 ML @ 1 MG/MIN 33.33 mls/hr IV.CONT TITRATE PRN Rx#: [id number] Nimbex Inj 100 MG In NS Inj 240 250 / 250 ML @ 3.3 MCG/KG/MIN 40.41 mls/ hr IV.CONT TITRATE PRN Rx#: [id number] Output: Urine 1925 / 1925 Gastric Drainage 150 / 150 Pre-Hospital Orogastric Tube 150 / 150 Other: Weight On Admission 79 kg Results - Labs CBC & Chem 7: 05/09/18 04:57 05/09/18 02:25 Labs: Laboratory Results - last 24 hr 05/08/18 05/08/18 05/08/18 20:45 20:45 20:45 WBC 13.6 H RBC 5.35 Hgb 15.2 POC Hgb (Calc) 15.6 Hct 45.6 POC Hct 46.0 MCV 85.3 MCH 28.4 MCHC 33.3 RDW 14.2 Plt Count 327 MPV 8.1 Prelim Diff (Auto) Slide review pending Neut % (Auto) 59.4 Lymph % (Auto) 22.6 Leslie % (Auto) 6.8 Eos % (Auto) 10.3 H Baso % (Auto) 0.9 Neut # (Auto) 8.1 H Lymph # (Auto) 3.1 Leslie # (Auto) 0.9 Eos # (Auto) 1.4 H Baso # (Auto) 0.1 WBC Differential Manual diff final Seg Neuts % (Manual) 63 Lymphocytes % (Manual) 21 Monocytes % (Manual) 7 Eosinophils % (Manual) 9 H Abs Neuts (Manual) 8.6 H Differential Comment . Platelet Estimate Normal Platelet Morphology Normal RBC Morphology Normal PT 11.2 INR 1.1 APTT 24.5 Puncture Site Patient Temperature O2 Saturation ABG pH ABG pCO2 ABG pO2 ABG HCO3 ABG O2 Content ABG Base Excess ABG Methemoglobin Hemoglobin Carboxyhemoglobin O2 Delivery Device Vent Setting Inspired O2 Critical Value POC Sodium 137 Sodium 137 POC Potassium 3.2 L Potassium 3.2 L POC Chloride 96 L Chloride 100 Carbon Dioxide 20.5 L Anion Gap 17 H POC BUN 6 BUN 7 Creatinine 1.13 POC Creatinine 1.0 Estimated GFR 65 L POC Glucose 327 H Random Glucose 328 H Lactic Acid Calcium 8.9 Phosphorus Magnesium Total Bilirubin 1.0 Direct Bilirubin Indirect Bilirubin AST 107 H ALT 86 H Alkaline Phosphatase 88 Troponin I 0.38 H Total Protein 6.4 Albumin 3.4 Urine Color Urine Clarity Urine pH Ur Specific [place] Urine Protein Urine Glucose (UA) Urine Ketones Urine Occult Blood Urine Nitrate Urine Bilirubin Urine Urobilinogen Ur Leukocyte Esterase Urine RBC Urine WBC Ur Squamous Epith Cells Urine Bacteria Micro UA Comment Ur Microscopic Review Urine Culture Comments Nasal Screen MRSA (PCR) Blood Type Blood Type Recheck Antibody Screen 05/08/18 05/08/18 05/08/18 21:38 21:50 22:30 WBC RBC Hgb POC Hgb (Calc) Hct POC Hct MCV MCH MCHC RDW Plt Count MPV Prelim Diff (Auto) Neut % (Auto) Lymph % (Auto) Leslie % (Auto) Eos % (Auto) Baso % (Auto) Neut # (Auto) Lymph # (Auto) Leslie # (Auto) Eos # (Auto) Baso # (Auto) WBC Differential Seg Neuts % (Manual) Lymphocytes % (Manual) Monocytes % (Manual) Eosinophils % (Manual) Abs Neuts (Manual) Differential Comment Platelet Estimate Platelet Morphology RBC Morphology PT INR APTT Puncture Site Right femoral Patient Temperature 98.6 O2 Saturation 99 ABG pH 7.39 ABG pCO2 42 ABG pO2 244 H ABG HCO3 24 ABG O2 Content 22.2 H ABG Base Excess 0.0 ABG Methemoglobin 0.6 Hemoglobin 15.7 Carboxyhemoglobin 0.6 O2 Delivery Device Ventilator Vent Setting Inspired O2 100 Critical Value No POC Sodium Sodium POC Potassium Potassium POC Chloride Chloride Carbon Dioxide Anion Gap POC BUN BUN Creatinine POC Creatinine Estimated GFR POC Glucose Random Glucose Lactic Acid 4.6 H* Calcium Phosphorus Magnesium Total Bilirubin Direct Bilirubin Indirect Bilirubin AST ALT Alkaline Phosphatase Troponin I Total Protein Albumin Urine Color Straw Urine Clarity Clear Urine pH 6.0 Ur Specific [place] 1.005 Urine Protein 30 H Urine Glucose (UA) 500 or greater Urine Ketones Trace H Urine Occult Blood Moderate H Urine Nitrate Negative Urine Bilirubin Negative Urine Urobilinogen Less than 2 Ur Leukocyte Esterase Negative Urine RBC 5 H Urine WBC 6 H Ur Squamous Epith Cells <1 Urine Bacteria Occasional H Micro UA Comment Cath-culture ind Ur Microscopic Review Not Reportable Urine Culture Comments Cath-cult indicated Nasal Screen MRSA (PCR) Blood Type Blood Type Recheck Antibody Screen 05/08/18 05/09/18 05/09/18 22:30 00:07 01:10 WBC RBC Hgb POC Hgb (Calc) Hct POC Hct MCV MCH MCHC RDW Plt Count MPV Prelim Diff (Auto) Neut % (Auto) Lymph % (Auto) Leslie % (Auto) Eos % (Auto) Baso % (Auto) Neut # (Auto) Lymph # (Auto) Leslie # (Auto) Eos # (Auto) Baso # (Auto) WBC Differential Seg Neuts % (Manual) Lymphocytes % (Manual) Monocytes % (Manual) Eosinophils % (Manual) Abs Neuts (Manual) Differential Comment Platelet Estimate Platelet Morphology RBC Morphology PT INR APTT Puncture Site Patient Temperature O2 Saturation ABG pH ABG pCO2 ABG pO2 ABG HCO3 ABG O2 Content ABG Base Excess ABG Methemoglobin Hemoglobin Carboxyhemoglobin O2 Delivery Device Vent Setting Inspired O2 Critical Value POC Sodium Sodium POC Potassium Potassium POC Chloride Chloride Carbon Dioxide Anion Gap POC BUN BUN Creatinine POC Creatinine Estimated GFR POC Glucose 275 H Random Glucose Lactic Acid Calcium Phosphorus Magnesium Total Bilirubin 1.1 H Direct Bilirubin 0.3 H Indirect Bilirubin 0.8 AST 151 H ALT 120 H Alkaline Phosphatase 95 Troponin I Total Protein 7.5 D Albumin 4.1 D Urine Color Urine Clarity Urine pH Ur Specific [place] Urine Protein Urine Glucose (UA) Urine Ketones Urine Occult Blood Urine Nitrate Urine Bilirubin Urine Urobilinogen Ur Leukocyte Esterase Urine RBC Urine WBC Ur Squamous Epith Cells Urine Bacteria Micro UA Comment Ur Microscopic Review Urine Culture Comments Nasal Screen MRSA (PCR) Mrsa detected Blood Type Blood Type Recheck Antibody Screen 05/09/18 05/09/18 05/09/18 01:10 02:25 04:57 WBC 18.3 H RBC 5.36 Hgb 15.2 POC Hgb (Calc) Hct 45.9 POC Hct MCV 85.6 MCH 28.3 MCHC 33.1 RDW 14.1 Plt Count 275 MPV 7.4 Prelim Diff (Auto) Neut % (Auto) 91.6 H Lymph % (Auto) 2.3 L Leslie % (Auto) 5.8 Eos % (Auto) 0.2 Baso % (Auto) 0.1 Neut # (Auto) 16.7 H Lymph # (Auto) 0.4 L Leslie # (Auto) 1.1 H Eos # (Auto) 0.0 Baso # (Auto) 0.0 WBC Differential . Seg Neuts % (Manual) Lymphocytes % (Manual) Monocytes % (Manual) Eosinophils % (Manual) Abs Neuts (Manual) Differential Comment Auto diff final Platelet Estimate Platelet Morphology RBC Morphology PT INR APTT Puncture Site Patient Temperature O2 Saturation ABG pH ABG pCO2 ABG pO2 ABG HCO3 ABG O2 Content ABG Base Excess ABG Methemoglobin Hemoglobin Carboxyhemoglobin O2 Delivery Device Vent Setting Inspired O2 Critical Value POC Sodium Sodium 135 L POC Potassium Potassium 3.5 POC Chloride Chloride 101 Carbon Dioxide 23.9 Anion Gap 10 POC BUN BUN 10 Creatinine 0.88 POC Creatinine Estimated GFR 87 L POC Glucose Random Glucose 336 H Lactic Acid Calcium 8.7 Phosphorus 1.7 L Magnesium 1.7 Total Bilirubin 1.1 H Direct Bilirubin Indirect Bilirubin AST 146 H ALT 116 H Alkaline Phosphatase 90 Troponin I 2.86 H* Total Protein 7.2 Albumin 3.9 Urine Color Urine Clarity Urine pH Ur Specific [place] Urine Protein Urine Glucose (UA) Urine Ketones Urine Occult Blood Urine Nitrate Urine Bilirubin Urine Urobilinogen Ur Leukocyte Esterase Urine RBC Urine WBC Ur Squamous Epith Cells Urine Bacteria Micro UA Comment Ur Microscopic Review Urine Culture Comments Nasal Screen MRSA (PCR) Blood Type O Positive Blood Type Recheck Required Antibody Screen Negative 05/09/18 05/09/18 04:57 05:00 WBC RBC Hgb POC Hgb (Calc) Hct POC Hct MCV MCH MCHC RDW Plt Count MPV Prelim Diff (Auto) Neut % (Auto) Lymph % (Auto) Leslie % (Auto) Eos % (Auto) Baso % (Auto) Neut # (Auto) Lymph # (Auto) Leslie # (Auto) Eos # (Auto) Baso # (Auto) WBC Differential Seg Neuts % (Manual) Lymphocytes % (Manual) Monocytes % (Manual) Eosinophils % (Manual) Abs Neuts (Manual) Differential Comment Platelet Estimate Platelet Morphology RBC Morphology PT 11.8 H INR 1.2 APTT 27.7 Puncture Site Patient Temperature O2 Saturation ABG pH ABG pCO2 ABG pO2 ABG HCO3 ABG O2 Content ABG Base Excess ABG Methemoglobin Hemoglobin Carboxyhemoglobin O2 Delivery Device Vent Setting Inspired O2 Critical Value POC Sodium Sodium POC Potassium Potassium POC Chloride Chloride Carbon Dioxide Anion Gap POC BUN BUN Creatinine POC Creatinine Estimated GFR POC Glucose 326 H Random Glucose Lactic Acid Calcium Phosphorus Magnesium Total Bilirubin Direct Bilirubin Indirect Bilirubin AST ALT Alkaline Phosphatase Troponin I Total Protein Albumin Urine Color Urine Clarity Urine pH Ur Specific [place] Urine Protein Urine Glucose (UA) Urine Ketones Urine Occult Blood Urine Nitrate Urine Bilirubin Urine Urobilinogen Ur Leukocyte Esterase Urine RBC Urine WBC Ur Squamous Epith Cells Urine Bacteria Micro UA Comment Ur Microscopic Review Urine Culture Comments Nasal Screen MRSA (PCR) Blood Type Blood Type Recheck Antibody Screen - Imaging Impressions Chest X-Ray 05/08/18 20:43 CONCLUSION: 1. ET tube in good position. 2. Gastric tube side-port is in the lower chest and the tube needs to be advanced at least [address] 05/08/18 20:43 CONCLUSION: 1. Punctate hyperdensity characteristic of hemorrhage in the right mid araseli. 2. No acute findings in the supratentorial brain. . Cervical Spine CT 05/08/18 20:44 CONCLUSION: 1. Moderate degenerative changes at C6-7. 2. Otherwise negative exam.
[2018-05-09] MEDS ORDERED: DOPamine 400 MG/250 ML Premix 400 MG/250 ML BAG IV.CONT ONE (07:51)
[2018-05-09] MEDS: Senna/Docusate Sodium 8.6/50 MG Tablet PO SCH ×3 (08:53→21:09)
[2018-05-09] MEDS ORDERED: Norepinephrine Inj 16 MG in Sodium Chlor 0.9% Inj 234 ML IV.CONT PRN (08:53)
[2018-05-09] MEDS: Chlorhexidine 0.12% Oral Kit 15 ML UDC OROPHARYNG SCH ×2 (08:54→21:09)
[2018-05-09] MEDS ORDERED: Famotidine PF Inj 20 MG/2 ML Vial IV.PUSH SCH (09:00)
[2018-05-09 10:24] LABS: Anion Gap 10 meq/L (5-15); Blood Urea Nitrogen 10 mg/dL (7-18); Calcium 8.7 mg/dL (8.5-10.1); Carbon Dioxide 24.6 meq/L (21.0-32.0); Chloride 103 meq/L (98-107); Glomerular Filtration Rate Greater Than 89 mL/min (>89); Glucose,Random 277 mg/dL (74-106); Magnesium 1.9 mg/dL (1.5-2.5); Sodium 138 meq/L (136-145)
[2018-05-09 10:26] LABS: Potassium 2.8 meq/L (3.5-5.1)
--- NOTE | 2018-05-09 10:33 | MB ---
cc: Anders Haile MD DATE: 05/09/2018 REASON FOR CONSULTATION: Acute myocardial infarction. HISTORY OF PRESENT ILLNESS: History is unobtainable from the patient who is intubated and sedated. History is obtained from electronic records. He is a 63-year-old white male, apparently with no major past medical history, who was found down at home by his . When emergency personnel arrived 10 minutes later, he was found to be in ventricular fibrillation and received 2 defibrillator shocks with restorationism of sinus rhythm. Reportedly, his initial EKG showed ST elevation, so he was called as a STEMI alert. However, because of intracranial hemorrhage, he was not taken to the cardiac catheterization laboratory. The patient has had mild resolving hypotension. PAST MEDICAL HISTORY: Unknown, reportedly no major history. MEDICATIONS AT HOME: Unknown. ALLERGIES: NO KNOWN DRUG ALLERGIES. Family history, social history, review of systems currently unobtainable. PHYSICAL EXAMINATION: VITAL SIGNS: His blood pressure 120/70 with a pulse of 60, respirations 14. GENERAL: He is a well-developed, thin white male, currently intubated and sedated. NECK: Jugular venous pressure is normal. Carotid pulses are 2+ bilaterally and without bruits. CHEST: Reveals clear lungs oro anteriorly. CARDIAC: He has a regular rhythm and rate without S3, S4, or murmur. ABDOMEN: He has a soft abdomen. Bowel sounds are present. There is no definite hepatosplenomegaly. EXTREMITIES: Reveal no clubbing, cyanosis, or edema. LABORATORY DATA: Includes WBC 18.3, hemoglobin 15.2, platelets 275. Potassium 3.5, BUN 10, creatinine 0.88. Troponin 2.86. AST 146, ALT 116. INR 1.2. Chest x-ray shows no acute disease. IMPRESSION: Acute anterior/lateral ST-elevation myocardial infarction, ventricular fibrillation arrest in a 63-year-old white male apparently with no previous past medical history. Unfortunately, there is evidence for intracranial hemorrhage in the right mid araseli region on head CT, precluding the use of anticoagulation and antiplatelet therapy at this time. Therefore, he is not a candidate for invasive cardiac evaluation. Echocardiogram is pending. His initial hypotension appears to be resolving. There is no definite evidence for acute congestive heart failure. RECOMMENDATIONS: 1. Continue therapeutic hypothermia. 2. Await his 2-D echocardiogram. 3. When his blood pressures can tolerate, initiate beta eleuterio and MAURILIO inhibitor therapy. MD SARITA Miller/mark , 08:20 AM , 08:29 AM ELIANE
[2018-05-09] MEDS ORDERED: Potassium Phosphate Inj 30 MMOL in Sodium Chlor 0.9% Inj 250 ML IV.SIG ONE (10:38)
[2018-05-09] MEDS ORDERED: Potassium Chlor 20 mEq Premix 20 MEQ/100 ML PIGGYBACK IV.SIG ONE (10:38)
[2018-05-09] MEDS ORDERED: Mag Sulf 1 gm/100 ml Premix 100 ML IV.SIG ONE (10:39)
[2018-05-09 11:18] LABS: Amphetamine Screen,Urine Neg (Neg); Barbiturate Screen,Urine Neg (Neg); Cannabinoid Screen,Urine Neg (Neg); Cocaine Screen,Urine Neg (Neg)
[2018-05-09 11:23] LABS: Opiate Screen,Urine Pos (Neg)
--- NOTE | 2018-05-09 12:01 | P.PNCC ---
Subjective Subjective Remarks/Hospital Course: 63-year-old male presents to emergency department intubated after VF/VT arrest. He had to be defibrillated twice in the field, afterwards clear STEMI criteria was called by [facility]. Apparently heard a collapse in the next room found the patient unresponsive called 9 1. Apparently total downtime was about 10 minutes and had a very quick Rask. Blood pressure was little low and dopamine drip was started in the field. Patient also had amiodarone started in the field. Initially the STEMI alert was called brain demonstrated punctate hyperdensity characteristic of hemorrhage in the right mid araseli in the STEMI alert was canceled. The patient has been admitted to ICU for hypothermia protocol treatment post cardiac arrest. Subjective: 05/09: Discussed with at bedside. Currently on target temperature monitoring. EEG performed. Replacing potassium and phosphorus this a.m. Objective Vital Signs / I&O: Vital Signs 05/08/18 20:35 05/08/18 20:42 05/08/18 20:55 Temperature Pulse Rate 93 H Respiratory Rate 25 H 24 Blood Pressure 142/65 H Pulse Oximetry 100 100 100 05/08/18 21:00 05/08/18 21:34 05/08/18 21:53 Temperature Pulse Rate 84 112 H 86 Respiratory Rate 14 14 Blood Pressure 121/62 126/69 Pulse Oximetry 100 100 100 05/08/18 22:05 05/08/18 22:20 05/08/18 22:31 Temperature Pulse Rate 92 H Respiratory Rate 20 15 Blood Pressure Pulse Oximetry 100 94 L 91 L 05/08/18 22:45 05/08/18 23:00 05/08/18 23:15 Temperature 97.0 F L 97.2 F L 97.2 F L Pulse Rate 87 85 94 H Respiratory Rate 22 16 31 H Blood Pressure 135/70 135/82 138/75 Pulse Oximetry 89 L 95 98 05/08/18 23:30 05/08/18 23:40 05/08/18 23:45 Temperature 96.6 F L 96.1 F L 95.9 F L Pulse Rate 95 H 96 H 92 H Respiratory Rate 24 46 H 29 H Blood Pressure 179/83 H 148/74 H 140/68 Pulse Oximetry 92 L 82 L 89 L 05/09/18 00:00 05/09/18 00:15 05/09/18 00:30 Temperature 95.4 F L 93.7 F L 92.7 F L Pulse Rate 85 87 80 Respiratory Rate 16 15 15 Blood Pressure 136/80 150/83 H 148/82 H Pulse Oximetry 99 100 100 05/09/18 00:45 05/09/18 01:00 05/09/18 01:15 Temperature 91.6 F L 90.7 F L 90.0 F L Pulse Rate 75 71 67 Respiratory Rate 14 14 14 Blood Pressure 136/77 127/72 119/71 Pulse Oximetry 100 100 100 05/09/18 01:30 05/09/18 01:45 05/09/18 02:00 Temperature 89.2 F L 90.5 F L 90.3 F L Pulse Rate 66 68 66 Respiratory Rate 14 14 14 Blood Pressure 112/65 109/62 108/65 Pulse Oximetry 100 100 100 05/09/18 02:15 05/09/18 02:30 05/09/18 02:45 Temperature 90.5 F L 90.5 F L 90.3 F L Pulse Rate 65 65 65 Respiratory Rate 14 14 14 Blood Pressure 108/63 107/62 109/63 Pulse Oximetry 99 99 99 05/09/18 03:00 05/09/18 03:15 05/09/18 03:30 Temperature 90.3 F L 90.3 F L 90.3 F L Pulse Rate 63 63 62 Respiratory Rate 14 14 14 Blood Pressure 111/64 109/65 116/70 Pulse Oximetry 98 98 99 05/09/18 03:45 05/09/18 04:00 05/09/18 04:15 Temperature 90.3 F L 90.3 F L 90.3 F L Pulse Rate 62 62 61 Respiratory Rate 14 14 14 Blood Pressure 115/71 118/71 117/68 Pulse Oximetry 98 98 99 05/09/18 04:28 05/09/18 04:30 05/09/18 04:45 Temperature 90.3 F L 90.1 F L Pulse Rate 59 L 60 Respiratory Rate 14 14 14 Blood Pressure 117/69 118/71 Pulse Oximetry 98 99 99 05/09/18 05:00 05/09/18 05:15 05/09/18 05:30 Temperature 90.1 F L 90.1 F L 90.3 F L Pulse Rate 60 60 59 L Respiratory Rate 14 14 14 Blood Pressure 119/72 121/74 120/67 Pulse Oximetry 99 100 100 05/09/18 05:45 05/09/18 06:00 05/09/18 06:15 Temperature 90.3 F L 90.1 F L 90.1 F L Pulse Rate 57 L 58 L 60 Respiratory Rate 14 14 14 Blood Pressure 120/70 122/72 120/70 Pulse Oximetry 100 100 100 05/09/18 06:30 05/09/18 06:45 05/09/18 07:00 Temperature 90.1 F L 90.3 F L 90.3 F L Pulse Rate 59 L 59 L 58 L Respiratory Rate 14 14 14 Blood Pressure 127/75 126/71 126/68 Pulse Oximetry 100 100 100 05/09/18 07:15 05/09/18 07:30 05/09/18 07:45 Temperature 90.5 F L 90.5 F L 90.7 F L Pulse Rate 57 L 58 L 57 L Respiratory Rate 14 14 14 Blood Pressure 124/71 123/71 122/72 Pulse Oximetry 100 100 100 05/09/18 08:00 05/09/18 08:15 05/09/18 08:30 Temperature 90.7 F L 90.9 F L 91.0 F L Pulse Rate 57 L 59 L 62 Respiratory Rate 14 14 14 Blood Pressure 115/69 113/67 105/71 Pulse Oximetry 100 100 100 05/09/18 08:45 05/09/18 09:00 Temperature 91.2 F L 91.2 F L Pulse Rate 61 65 Respiratory Rate 14 14 Blood Pressure 104/68 88/61 L Pulse Oximetry 100 100 Intake & Output 05/08/18 05/09/18 05/09/18 18:59 06:59 18:59 Intake Total 750 / 750 100 / 100 Output Total 2075 / 2075 Balance -1325 / -1325 100 / 100 Weight 79 kg Intake: IV 750 / 750 100 / 100 Cordarone Inj 450 MG In D5W Inj 500 / 500 241 ML @ 1 MG/MIN 33.33 mls/hr IV.CONT TITRATE PRN Rx#: [id number] Nimbex Inj 100 MG In NS Inj 240 250 / 250 ML @ 3.3 MCG/KG/MIN 40.41 mls/ hr IV.CONT TITRATE PRN Rx#: [id number] Diprivan 1000 mg/100 ml Inj 1, 100 / 100 000 mg In 100 ml @ 5 MCG/KG/MIN 2.449 mls/hr IV.CONT TITRATE PRN Rx#:[id number] Output: Urine 1925 / 1925 Gastric Drainage 150 / 150 Pre-Hospital Orogastric Tube 150 / 150 Other: Weight On Admission 79 kg Result Diagrams: 05/09/18 04:57 05/09/18 09:00 Other Results: Microbiology 05/08/18 21:38 Blood - Peripheral Aerobic Blood Culture - Preliminary No growth in 1 day 05/08/18 21:38 Blood - Peripheral Anaerobic Blood Culture - Preliminary No growth in 1 day 05/08/18 21:33 Blood - Peripheral Aerobic Blood Culture - Preliminary No growth in 1 day 05/08/18 21:33 Blood - Peripheral Anaerobic Blood Culture - Preliminary No growth in 1 day Imaging: Chest X-Ray 05/08/18 20:43 CONCLUSION: 1. ET tube in good position. 2. Gastric tube side-port is in the lower chest and the tube needs to be advanced at least [address] 05/08/18 20:43 CONCLUSION: 1. Punctate hyperdensity characteristic of hemorrhage in the right mid araseli. 2. No acute findings in the supratentorial brain. . Cervical Spine CT 05/08/18 20:44 CONCLUSION: 1. Moderate degenerative changes at C6-7. 2. Otherwise negative exam. Objective Remarks: GENERAL: 63-year-old male currently orotracheally intubated SKIN: cool and dry. HEAD: Atraumatic. Normocephalic. EYES: Pupils equal and round and minimally reactive bilaterally. No scleral icterus. No injection or drainage. ENT: No nasal bleeding or discharge. Mucous membranes pink and moist. NECK: Trachea midline. No JVD. CARDIOVASCULAR: Bradycardic, S1, S2. No S4. RESPIRATORY: No accessory muscle use. Clear to auscultation. Breath sounds equal bilaterally. GASTROINTESTINAL: Abdomen soft, non-tender, nondistended. Hepatic and splenic margins not palpable. MUSCULOSKELETAL: Extremities without clubbing, cyanosis, or edema. No obvious deformities. NEUROLOGICAL: Currently on cisatracurium drip. 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 [id number] 2 out of 4 Rewarming in a.m. 24 hours post initiation Neurology/Dr. Connor following. EEG completed results pending Check brain MRI when able CV: 80. Out of hospital cardiac arrest/V. fib Elevated troponin Currently on dopamine drip at 6 mg/kg/min. Will switch norepinephrine drip to maintain mean arterial pressure greater or equal to 65 Cardiology consultation/Dr. Haile. Not a candidate for cardiac catheterization due to pontine hemorrhage right mid araseli Troponin elevated 2.86 this a.m. Recheck until downward trend 2D echocardiogram pending. Continue targeted temperature monitoring with a goal 34 C. Resp: Acute respiratory failure PRVC ventilation Ventilator bundle Head of bed at 30 degrees Albuterol/ipratropium aerosols every 4 hours with albuterol aerosols every 2 hours as needed dyspnea ABG/chest x-ray in a.m. 05/10 GI: N.p.o. status NG tube to low inner wall suction Pantoprazole for GI prophylaxis Docusate serum/senna 1 tablet twice daily for bowel regimen : Orellana catheter placed for accurate I's and O's in a critical patient currently in a paralytic Endo: Acute hyperglycemia Currently in insulin drip at 2 units/h to maintain euglycemia Check TSH HEME: Leukocytosis Monitor CBC daily. Follow trends. Renal Creatinine currently within normal limits Acute I's and O's Heme monitor urine output: ID: Monitor for signs and symptomatology infection FEN: acute hypokalemia Hypopotassemia Replace electrolytes as clinically indicated MSK: PT evaluate and treat Access -Utilize right femoral Quatro catheter day #1. Prophylaxis - -GI pantoprazole - -DVT -SCD/holding pharmacologic prophylaxis in light of punctate hemorrhage 35 minutes critical care time. Updated at bedside. Respiratory failure -Intubated for airway protection -No weaning until neurologically and hemodynamically improved -Vent bundle -DuoNeb's as needed Cardiac arrest -Not a candidate for emergent cardiac catheterization due to punctate hemorrhage of the brainstem -Therapeutic hypothermia -Further cardiac workup if neurologically improve -Hold anticoagulation due to above -Dr. Blum consulted by ED Serge fib -Amiodarone drip Diabetes mellitus -Insulin drip Brainstem punctate hemorrhage -Neurology consultation -Hold anticoagulation and antiplatelet -Supportive care DVT GI prophylaxis -Teds SCDs -No pharmacological DVT prophylaxis due to hemorrhagic lesions and brainstem -Pepcid 35 minutes of critical care
[2018-05-09] MEDS: Pantoprazole Inj 40 MG Vial IV.PUSH SCH (12:15)
[2018-05-09] MEDS: Artificial Tears Opth Drops 15 ML Bottle EACH EYE SCH ×2 (12:16→21:09)
--- NOTE | 2018-05-09 13:04 | P.PCN ---
Date of procedure: 05/09/18 Pre-op diagnosis: Out of hospital cardiac arrest Post-op diagnosis: same Procedure: DATE: 05/09/2018 PROCEDURE: Left femoral arterial catheter placement INDICATION: Hemodynamic monitoring DETAILS OF PROCEDURE The patient was placed in supine position. The skin was cleansed with Chloraprep. Additional barrier precautions included large sterile drape, sterile gloves, sterile gown, face mask, and hat. 1% lidocaine was used for local anesthesia. Under direct ultrasound guidance and on the initial attempt, the artery was accessed with an introducer needle. The guide wire was advanced. Using Seldinger technique 20 gauge arterial catheter was placed. The guide wire was removed. The catheter was connected to a transducer line and flushed with saline. The video monitor displayed normal arterial wave forms. The catheter was secured with 2-0 silk. A sterile dressing with antibiotic disc was applied. ESTIMATED BLOOD LOSS: minimal COMPLICATIONS: None
--- NOTE | 2018-05-09 14:30 | ECG ---
Date Performed: 05/08/2018 Time Performed: 20:40:22 PTAGE: 63 years EKG: Sinus rhythm WITH SINUS ARRHYTHMIA MARKED ST ELEVATION, CONSIDER ANTEROSEPTAL INJURY ACUTE [place] Since the PREVIOUS TRACING , no significant change noted PREVIOUS TRACIN05/08/2018 20.39 DOCTOR: Dodie Marie Interpretating Date/Time 05/09/2018 14:27:32
--- NOTE | 2018-05-09 16:06 | ECG ---
Date Performed: 05/08/2018 Time Performed: 20:39:35 PTAGE: 63 years EKG: Sinus rhythm WITH OCCASIONAL VENTRICULAR PREMATURE COMPLEXES MARKED ST ELEVATION, CONSIDER ANTEROSEPTAL INJURY *ACUTE [place] PREVIOUS TRACING : 11/18/2016 11.39 Compared to previous tracing, patient has developed a fairly extensive anterolateral infarct consistent with proximal left anterior descending occlusion. DOCTOR: Dodie Marie Interpretating Date/Time 05/09/2018 16:05:20
--- NOTE | 2018-05-09 16:08 | ECG ---
Date Performed: 05/09/2018 Time Performed: 03:42:18 PTAGE: 63 years EKG: CONSIDER ACUTE ST ELEVATION [place] Sinus rhythm Prolonged QT interval ANTEROSEPTAL INFARCT - POSSIBLY ACUTE Lateral ST elevation, CONSIDER A CUTE INFARCT Abnormal ECG PREVIOUS TRACING :05/08/2018 @08.40.22 Compared to previous tracing, the patient has persistent evidence of an anterior ST segment elevation infarction but there is less reciprocal change and the serial changes are consistent with an improvement in the anterior wall infarct DOCTOR: Dodie Marie Interpretating Date/Time 05/09/2018 16:08:03
--- NOTE | 2018-05-09 16:19 | ECHRPT ---
Indication: CORONARY ATHEROSCLEROSIS CONCLUSIONS The left ventricular systolic function is severely reduced with an estimated ejection fraction in th e range of 30-35%. Normal left ventricular size. Wall thickness is normal. No regional wall motion abnormalities are present. Moderate thickening of the mitral valve leaflets. Ruptured chordae with flail anterior mitral valve leaflet? The pulmonary valve is not well visualized. BP: / HR: Rhythm: Sinus MEASUREMENTS (Male / Female) Normal Values Technical Quality:Fair 2D ECHO LV Diastolic Diameter PLAX 4.0 cm 4.2 - 5.9 / 3.9 - 5.3 cm LV Systolic Diameter PLAX 3.4 cm IVS Diastolic Thickness 1.0 cm 0.6 - 1.0 / 0.6 - 0.9 cm LVPW Diastolic Thickness 1.0 cm 0.6 - 1.0 / 0.6 - 0.9 cm LV Relative Wall Thickness 0.5 LVOT Diameter 1.5 cm LA Systolic Diameter LX 2.5 cm 3.0 - 4.0 / 2.7 - 3.8 cm M-MODE LV Diastolic Diameter MM 4.5 cm 4.2 - 5.9 / 3.9 - 5.3 cm LV Systolic Diameter MM 4.0 cm LV Ejection Fraction MM Teich 21.2 % IVS Diastolic Thickness MM 1.0 cm 0.6 - 1.0 / 0.6 - 0.9 cm LVPW Diastolic Thickness MM 1.0 cm 0.6 - 1.0 / 0.6 - 0.9 cm LV Relative Wall Thickness MM 0.4 0.24 - 0.42 / 0.22 - 0.42 DOPPLER MV Area PHT 4.4 cm Mitral E Point Velocity 31.1 cm/s Mitral A Point Velocity 59.2 cm/s Mitral E to A Ratio 0.5 FINDINGS LEFT VENTRICLE The left ventricular systolic function is severely reduced with an estimated ejection fraction in th e range of 30-35%. Normal left ventricular size. Wall thickness is normal. No regional wall motion abnormalities are present. The left ventricle is not well visualized. RIGHT VENTRICLE Normal right ventricular size and systolic function. LEFT ATRIUM The left atrial size is normal. RIGHT ATRIUM The right atrial size is normal. ATRIAL SEPTUM Normal atrial septal thickness without atrial level shunting by limited color doppler interrogation. AORTA The aortic root and proximal ascending aorta are normal in size on limited imaging. MITRAL VALVE Moderate thickening of the mitral valve leaflets. Ruptured chordae with flail anterior mitral valve leaflet? AORTIC VALVE Trileaflet aortic valve. No aortic valve stenosis or regurgitation. TRICUSPID VALVE Structurally normal tricuspid valve. No tricuspid valve stenosis or regurgitation. PULMONARY VALVE The pulmonary valve is not well visualized. VESSELS The inferior vena cava is normal in size. PERICARDIUM No pericardial effusion. Luis Enrique Elkins MD, FACC (Electronically Signed) Final Date:09 May 2018 16:18
[2018-05-09 16:54] LABS: Anion Gap 10 meq/L (5-15); Blood Urea Nitrogen 11 mg/dL (7-18); Calcium 8.3 mg/dL (8.5-10.1); Carbon Dioxide 22.6 meq/L (21.0-32.0); Chloride 107 meq/L (98-107); Cholesterol 129 mg/dL (120-200); Glomerular Filtration Rate Greater Than 89 mL/min (>89); Glucose,Random 220 mg/dL (74-106); Magnesium 2.2 mg/dL (1.5-2.5); Potassium 3.6 meq/L (3.5-5.1); Sodium 140 meq/L (136-145); Triglycerides 89 mg/dL (42-150)
[2018-05-09 16:59] LABS: Hepatitits B Surface Antigen Nonreactive (Nonreactive)
[2018-05-09 17:16] LABS: Chol/HDL Ratio 2.54 Ratio; Creatine Kinase 1274 U/L (39-308); HDL Cholesterol 50.7 mg/dL (40.0-60.0); LDL Cholesterol,Calculated 61 mg/dL (0-99)
[2018-05-09 17:31] LABS: Creatine Kinase MB 269.5 ng/mL (0.5-3.6)
[2018-05-09 17:33] LABS: Hepatitis A IgM Antibody Nonreactive (Nonreactive)
[2018-05-09 17:40] LABS: CKMB Percent 21.2 % (0.0-4.0)
--- NOTE | 2018-05-09 17:40 | MG ---
cc: Pablo Connor MD EEG RECORD NUMBER: [id number] DESCRIPTION: Burst suppression type pattern with spindle activity occurring; bursts of sharply contoured alpha activity. ____ sharp transient at EPOCH 47. Single lead EKG showing sinus rhythm. INTERPRETATION: Burst suppression type pattern and spindles which may be pharmacologically induced. No epileptic activity appreciated. Clinical correlation. MD RAMA Sánchez/supa/rr , 05:04 PM , 05:09 PM
--- NOTE | 2018-05-09 18:27 | P.CONNEU ---
History of Present Illness Service: Neurology Primary Care Provider: Joseph Calhoun MD Chief Complaint: Abnormal CAT scan History of Present Illness: 63-year-old male care unit treated for cardiac arrest. Under "cool intubated paralyzed and sedated. Get a CT brain scan which demonstrated a possible small hemorrhage in the araseli. Neurology was consulted for further evaluation. Review of Systems unobtainable due to endotracheal tube, unobtainable due to mental status PMFSH - History History Provided By: Intern Retail / EMT - Medical History Medical History: Medical History (Last Reviewed 05/09/18 @ 13:46 by Jamey Miner) History of MRSA infection Onset Date: ~05/08/18 Patient denies medical problems - Surgical History Surgical History: Surgical History (Last Reviewed 05/09/18 @ 13:46 by Jamey Miner) No history of previous surgery - Tobacco History Smoking Status: Unknown if ever smoked - Alcohol History How Often Do You Have a Drink Containing Alcohol: Unable to Obtain - Substance Use History Substance History: Unable to Obtain - Travel History Recent Travel in the [place] Within the Last 8 Weeks: No Recent Travel Out of the Country Within the Last 8 Weeks: No - Immunization History Tetanus Immunization: Unable to Assess Medications and Allergies Active Medications: Active Medications Acetaminophen (Tylenol) 650 mg PO Q6H PRN PRN Reason: PAIN 1-5 AND/OR FEVER >101F Al Hydroxide/Mg Hydroxide (Milk Of Christy Simms) 30 ml PO Q12H PRN PRN Reason: Mild Constipation Albuterol (Albuterol Neb (Prn)) 2.5 mg NEB Q2HR NEB PRN PRN Reason: DYSPNEA Albuterol (Duoneb Neb (Chao)) 1 ampul NEB Q4HR NEB CHAO Last Admin: 05/09/18 13:19 Dose: 1 ampul Artificial Tears (Tears Naturale Opth Drops) 1 drop EACH EYE Q8H [facility] Last Admin: 05/09/18 12:16 Dose: Not Given Bisacodyl (Dulcolax Supp) 10 mg RECTAL DAILY PRN PRN Reason: SEVERE CONSITIPATION Buspirone HCl (Buspar) 15 mg NG/OG BID PRN PRN Reason: SHIVERING Chlorhexidine Gluconate (Peridex 0.12% Oral Kit) 15 ml OROPHARYNG BID@0800, 2000 [facility] Last Admin: 05/09/18 08:54 Dose: 15 ml Chlorhexidine Gluconate (Chlorhexidine 2% Cloth) 3 pack TOPICAL DAILY@0400 [facility] Stop: 05/14/18 03:59 Last Admin: 05/08/18 23:00 Dose: 3 pack Chlorhexidine Gluconate (Chlorhexidine 2% Cloth) 3 pack TOPICAL DAILY@0400 PRN PRN Reason: Extra cloth needed Stop: 05/14/18 03:59 Dextrose (D50w Vial) 50 ml IV.PUSH UNSCH PRN PRN Reason: PER HYPOGLYCEMIA PROTOCOL Amiodarone HCl 450 mg/ (Dextrose) 250 mls @ 33.33 mls/hr IV.CONT TITRATE PRN; Protocol PRN Reason: Per Protocol Last Admin: 05/09/18 06:38 Dose: 0.5 mg/min, 16.66 mls/hr Sodium Chloride (Ns Inj) 1,000 mls @ 84 mls/hr IV.CONT .[id number] [facility] Last Admin: 05/09/18 12:15 Dose: 84 mls/hr Propofol (Diprivan 1000 Mg/100 Ml Inj) 1,000 mg in 100 mls @ 2.449 mls/hr IV.CONT TITRATE PRN; Protocol PRN Reason: Per Protocol Last Admin: 05/09/18 16:00 Dose: 30 mcg/kg/min, 14.7 mls/hr Midazolam HCl (Versed Inj) 50 mg in 50 mls @ 2 mls/hr IV.CONT TITRATE PRN; Protocol PRN Reason: Per Protocol Last Titration: 05/09/18 16:00 Dose: 4 mg/hr, 4 mls/hr Cisatracurium Besylate 100 mg/ (Sodium Chloride) 250 mls @ 40.41 mls/hr IV.CONT TITRATE PRN; Protocol PRN Reason: Per Protocol Last Titration: 05/09/18 17:00 Dose: 0.16 mcg/kg/min, 2 mls/hr Fentanyl (Fentanyl 10 Mcg/Ml Premix Drip) 2,500 mcg in 250 mls @ 5 mls/hr IV.SIG TITRATE PRN; Protocol PRN Reason: Per Protocol Insulin Human Regular 100 unit (/ Sodium Chloride) 100 mls @ 0.5 mls/hr IV.CONT TITRATE PRN; Protocol PRN Reason: See protocol Last Titration: 05/09/18 18:08 Dose: 2 unit/hr, 2 mls/hr Norepinephrine Bitartrate 16 (mg/ Sodium Chloride) 250 mls @ 1.87 mls/hr IV.CONT TITRATE PRN; Protocol PRN Reason: See Protocol Last Titration: 05/09/18 14:45 Dose: 0 mcg/min, 0 mls/hr Lactulose (Lactulose Liq) 30 ml PO DAILY PRN PRN Reason: SEVERE CONSITIPATION Lorazepam (Ativan Inj) 1 mg IV.PUSH Q1H PRN PRN Reason: SEE LABEL COMMENTS Meperidine HCl (Demerol Inj) 25 mg IV.PUSH Q2H PRN PRN Reason: SHIVERING Midazolam HCl (Versed Inj) 2 mg IV.PUSH Q1H PRN PRN Reason: SEE LABEL COMMENTS Miscellaneous Medication () 1 each OROPHARYNG 0000,0400,1200,1600 [facility] Last Admin: 05/09/18 16:11 Dose: 1 each Morphine Sulfate (Morphine Inj) 2 mg IV.PUSH Q2H PRN PRN Reason: PAIN SCALE 6 TO 10 Ondansetron HCl (Zofran Inj) 4 mg IV.PUSH Q6H PRN PRN Reason: NAUSEA OR VOMITING Pantoprazole Sodium (Protonix Inj) 40 mg IV.PUSH Q24H [facility] Last Admin: 05/09/18 12:15 Dose: Not Given Senna/Docusate Sodium (Lizbeth-Colace) 1 tab PO BID [facility] Last Admin: 05/09/18 09:02 Dose: Not Given Sennosides (Senokot) 17.2 mg PO Q12H PRN PRN Reason: Moderate Constipation Sodium Chloride (Ns Flush) 2 ml IV.FLUSH BID [facility] Last Admin: 05/09/18 08:53 Dose: 2 ml Sodium Chloride (Ns Flush) 2 ml IV.FLUSH PRN PRN PRN Reason: FLUSH AFTER USING IV ACCESS Terbutaline Sulfate (Brethine Inj) 1 mg SQ UNSCH PRN PRN Reason: For Extravasation Terbutaline Sulfate (Brethine Inj) 1 mg SQ UNSCH PRN PRN Reason: For Extravasation Allergies Allergy/AdvReac Type Severity Reaction Status Date / Time No Known Allergies Allergy Uncoded 02/17/15 12:05 Home Medications Medication Instructions Recorded Confirmed Type No Known Home Medications 05/08/18 05/08/18 History Exam Vital signs: Vital Signs 05/08/18 20:35 05/08/18 20:42 05/08/18 20:55 Temperature Pulse Rate 93 H Respiratory Rate 25 H 24 Blood Pressure 142/65 H Pulse Oximetry 100 100 100 05/08/18 21:00 05/08/18 21:34 05/08/18 21:53 Temperature Pulse Rate 84 112 H 86 Respiratory Rate 14 14 Blood Pressure 121/62 126/69 Pulse Oximetry 100 100 100 05/08/18 22:05 05/08/18 22:20 05/08/18 22:31 Temperature Pulse Rate 92 H Respiratory Rate 20 15 Blood Pressure Pulse Oximetry 100 94 L 91 L 05/08/18 22:45 05/08/18 23:00 05/08/18 23:15 Temperature 97.0 F L 97.2 F L 97.2 F L Pulse Rate 87 85 94 H Respiratory Rate 22 16 31 H Blood Pressure 135/70 135/82 138/75 Pulse Oximetry 89 L 95 98 05/08/18 23:30 05/08/18 23:40 05/08/18 23:45 Temperature 96.6 F L 96.1 F L 95.9 F L Pulse Rate 95 H 96 H 92 H Respiratory Rate 24 46 H 29 H Blood Pressure 179/83 H 148/74 H 140/68 Pulse Oximetry 92 L 82 L 89 L 05/09/18 00:00 05/09/18 00:15 05/09/18 00:30 Temperature 95.4 F L 93.7 F L 92.7 F L Pulse Rate 85 87 80 Respiratory Rate 16 15 15 Blood Pressure 136/80 150/83 H 148/82 H Pulse Oximetry 99 100 100 05/09/18 00:45 05/09/18 01:00 05/09/18 01:15 Temperature 91.6 F L 90.7 F L 90.0 F L Pulse Rate 75 71 67 Respiratory Rate 14 14 14 Blood Pressure 136/77 127/72 119/71 Pulse Oximetry 100 100 100 05/09/18 01:30 05/09/18 01:45 05/09/18 02:00 Temperature 89.2 F L 90.5 F L 90.3 F L Pulse Rate 66 68 66 Respiratory Rate 14 14 14 Blood Pressure 112/65 109/62 108/65 Pulse Oximetry 100 100 100 05/09/18 02:15 05/09/18 02:30 05/09/18 02:45 Temperature 90.5 F L 90.5 F L 90.3 F L Pulse Rate 65 65 65 Respiratory Rate 14 14 14 Blood Pressure 108/63 107/62 109/63 Pulse Oximetry 99 99 99 05/09/18 03:00 05/09/18 03:15 05/09/18 03:30 Temperature 90.3 F L 90.3 F L 90.3 F L Pulse Rate 63 63 62 Respiratory Rate 14 14 14 Blood Pressure 111/64 109/65 116/70 Pulse Oximetry 98 98 99 05/09/18 03:45 05/09/18 04:00 05/09/18 04:15 Temperature 90.3 F L 90.3 F L 90.3 F L Pulse Rate 62 62 61 Respiratory Rate 14 14 14 Blood Pressure 115/71 118/71 117/68 Pulse Oximetry 98 98 99 05/09/18 04:28 05/09/18 04:30 05/09/18 04:45 Temperature 90.3 F L 90.1 F L Pulse Rate 59 L 60 Respiratory Rate 14 14 14 Blood Pressure 117/69 118/71 Pulse Oximetry 98 99 99 05/09/18 05:00 05/09/18 05:15 05/09/18 05:30 Temperature 90.1 F L 90.1 F L 90.3 F L Pulse Rate 60 60 59 L Respiratory Rate 14 14 14 Blood Pressure 119/72 121/74 120/67 Pulse Oximetry 99 100 100 05/09/18 05:45 05/09/18 06:00 05/09/18 06:15 Temperature 90.3 F L 90.1 F L 90.1 F L Pulse Rate 57 L 58 L 60 Respiratory Rate 14 14 14 Blood Pressure 120/70 122/72 120/70 Pulse Oximetry 100 100 100 05/09/18 06:30 05/09/18 06:45 05/09/18 07:00 Temperature 90.1 F L 90.3 F L 90.3 F L Pulse Rate 59 L 59 L 58 L Respiratory Rate 14 14 14 Blood Pressure 127/75 126/71 126/68 Pulse Oximetry 100 100 100 05/09/18 07:15 05/09/18 07:30 05/09/18 07:45 Temperature 90.5 F L 90.5 F L 90.7 F L Pulse Rate 57 L 58 L 57 L Respiratory Rate 14 14 14 Blood Pressure 124/71 123/71 122/72 Pulse Oximetry 100 100 100 05/09/18 08:00 05/09/18 08:15 05/09/18 08:30 Temperature 90.7 F L 90.9 F L 91.0 F L Pulse Rate 57 L 59 L 62 Respiratory Rate 14 14 14 Blood Pressure 115/69 113/67 105/71 Pulse Oximetry 100 100 100 05/09/18 08:45 05/09/18 09:00 05/09/18 09:16 Temperature 91.2 F L 91.2 F L 91.2 F L Pulse Rate 61 65 62 Respiratory Rate 14 14 14 Blood Pressure 104/68 88/61 L 90/71 L Pulse Oximetry 100 100 99 05/09/18 09:30 05/09/18 09:46 05/09/18 10:00 Temperature 91.2 F L 91.2 F L 91.0 F L Pulse Rate 58 L 56 L 59 L Respiratory Rate 14 14 14 Blood Pressure 93/69 L 88/61 L Pulse Oximetry 100 100 100 05/09/18 10:01 05/09/18 10:16 05/09/18 10:30 Temperature 91.0 F L 91.0 F L 91.0 F L Pulse Rate 59 L 61 62 Respiratory Rate 14 14 14 Blood Pressure 83/62 L 80/56 L 85/63 L Pulse Oximetry 100 99 100 05/09/18 10:45 05/09/18 11:00 05/09/18 11:01 Temperature 91.2 F L 91.4 F L 91.4 F L Pulse Rate 66 59 L 59 L Respiratory Rate 14 15 14 Blood Pressure 87/58 L 95/69 L Pulse Oximetry 100 100 100 05/09/18 11:16 05/09/18 11:49 05/09/18 12:00 Temperature 91.6 F L 91.6 F L 91.6 F L Pulse Rate 58 L 53 L 58 L Respiratory Rate 14 14 14 Blood Pressure 93/68 L 105/71 Pulse Oximetry 100 100 100 05/09/18 12:01 05/09/18 12:15 05/09/18 12:30 Temperature 91.6 F L 91.8 F L 91.9 F L Pulse Rate 58 L 60 60 Respiratory Rate 14 14 14 Blood Pressure 97/68 L 97/69 L 99/72 L Pulse Oximetry 100 100 100 05/09/18 12:45 05/09/18 13:00 05/09/18 13:15 Temperature 92.1 F L 92.3 F L 92.3 F L Pulse Rate 61 61 60 Respiratory Rate 14 14 14 Blood Pressure 94/66 L 106/78 109/80 Pulse Oximetry 100 100 100 05/09/18 13:20 05/09/18 13:30 05/09/18 13:45 Temperature 92.5 F L 92.5 F L Pulse Rate 54 L 59 L 59 L Respiratory Rate 14 14 14 Blood Pressure 111/74 107/78 Pulse Oximetry 100 100 05/09/18 14:00 05/09/18 14:02 05/09/18 14:15 Temperature 92.5 F L 92.5 F L 92.7 F L Pulse Rate 62 65 64 Respiratory Rate 19 14 14 Blood Pressure 105/75 107/71 Pulse Oximetry 100 100 100 05/09/18 14:30 05/09/18 14:45 05/09/18 15:00 Temperature 92.8 F L 93.0 F L 93.2 F L Pulse Rate 65 64 63 Respiratory Rate 14 15 14 Blood Pressure 108/76 107/73 107/75 Pulse Oximetry 100 100 100 05/09/18 15:10 05/09/18 15:15 05/09/18 16:00 Temperature 93.2 F L 93.4 F L Pulse Rate 62 63 68 Respiratory Rate 14 14 15 Blood Pressure 107/75 110/75 Pulse Oximetry 100 100 100 05/09/18 17:00 05/09/18 18:00 Temperature 93.9 F L 93.7 F L Pulse Rate 66 66 Respiratory Rate 15 15 Blood Pressure 108/71 106/73 Pulse Oximetry 100 100 Intake & Output 05/08/18 05/09/18 05/09/18 18:59 06:59 18:59 Intake Total 750 / 750 2074 Output Total 2074 1200 / 1200 Balance -1325 / -1325 875 / 875 Weight 79 kg Intake: IV 750 / 750 2074 Cordarone Inj 450 MG In D5W Inj 500 / 500 241 ML @ 1 MG/MIN 33.33 mls/hr IV.CONT TITRATE PRN Rx#: [id number] Nimbex Inj 100 MG In NS Inj 240 250 / 250 175 / 175 ML @ 3.3 MCG/KG/MIN 40.41 mls/ hr IV.CONT TITRATE PRN Rx#: [id number] DOPamine 800 MG/500 ML Premix 240 / 240 800 mg In 500 ml @ 3 MCG/KG/MIN 9.185 mls/hr IV.CONT TITRATE PRN Rx#:[id number] Diprivan 1000 mg/100 ml Inj 1, 200 / 200 000 mg In 100 ml @ 5 MCG/KG/MIN 2.449 mls/hr IV.CONT TITRATE PRN Rx#:[id number] NS Inj 1,000 ML @ 84 mls/hr IV. 1000 / 1000 CONT .[id number] [facility]AO Rx#:[id number] Magnesium Sulfate 1 gm/D5W 100 100 / 100 ml Premix 100 ML @ 100 mls/hr IV.SIG ONCE ONE Rx#:[id number] KCl 20 mEq Premix Inj 20 meq In 100 / 100 100 ml @ 50 mls/hr IV.SIG ONCE ONE Rx#:[id number] Potassium Phosphate Inj 30 MMOL 260 / 260 In NS Inj 250 ML @ 43.333 mls/ hr IV.SIG ONCE ONE Rx#:[id number] Output: Urine 1925 / 1925 Urine Amount (Catheter) 550 / 550 Indwelling Temp Sensing 550 / 550 Catheter Gastric Drainage 150 / 150 650 / 650 Pre-Hospital Orogastric Tube 150 / 150 650 / 650 Other: # Bowel Movements 0 Weight On Admission 79 kg Narrative: GENERAL: in NAD, SKIN: Warm and dry. HEAD: Atraumatic. Normocephalic. ENT: Intubated NECK: Trachea midline. No JVD. CARDIOVASCULAR: Regular rate and rhythm. RESPIRATORY: Intubated GASTROINTESTINAL: Abdomen soft, non-tender, nondistended. MUSCULOSKELETAL: Extremities without clubbing, cyanosis, or edema. No obvious deformities. NEUROLOGICAL: Intubated sedated on Demadex, propofol, Versed. Comatose nonverbal not following. Pinpoint pupils no corneals no current blink to threat no involuntary movements no drooling extremity PSYCHIATRIC: Intubated - Constitutional no acute distress - Routine HEENT Exam Head: Present: normocephalic Eye: Present: EOMI Results - Labs CBC & Chem 7: 05/09/18 04:57 05/09/18 14:58 Labs: Laboratory Results - last 24 hr 05/08/18 05/08/18 05/08/18 20:45 20:45 20:45 WBC 13.6 H RBC 5.35 Hgb 15.2 POC Hgb (Calc) 15.6 Hct 45.6 POC Hct 46.0 MCV 85.3 MCH 28.4 MCHC 33.3 RDW 14.2 Plt Count 327 MPV 8.1 Prelim Diff (Auto) Slide review pending Neut % (Auto) 59.4 Lymph % (Auto) 22.6 [place] % (Auto) 6.8 Eos % (Auto) 10.3 H Baso % (Auto) 0.9 Neut # (Auto) 8.1 H Lymph # (Auto) 3.1 [place] # (Auto) 0.9 Eos # (Auto) 1.4 H Baso # (Auto) 0.1 WBC Differential Manual diff final Seg Neuts % (Manual) 63 Lymphocytes % (Manual) 21 Monocytes % (Manual) 7 Eosinophils % (Manual) 9 H Abs Neuts (Manual) 8.6 H Differential Comment . Platelet Estimate Normal Platelet Morphology Normal RBC Morphology Normal PT 11.2 INR 1.1 APTT 24.5 Puncture Site Patient Temperature O2 Saturation ABG pH ABG pCO2 ABG pO2 ABG HCO3 ABG O2 Content ABG Base Excess ABG Methemoglobin Hemoglobin Carboxyhemoglobin O2 Delivery Device Vent Setting Inspired O2 Critical Value POC Sodium 137 Sodium 137 POC Potassium 3.2 L Potassium 3.2 L POC Chloride 96 L Chloride 100 Carbon Dioxide 20.5 L Anion Gap 17 H POC BUN 6 BUN 7 Creatinine 1.13 POC Creatinine 1.0 Estimated GFR 65 L POC Glucose 327 H Random Glucose 328 H Lactic Acid Calcium 8.9 Phosphorus Magnesium Total Bilirubin 1.0 Direct Bilirubin Indirect Bilirubin AST 107 H ALT 86 H Alkaline Phosphatase 88 Total Creatine Kinase CK-MB (CK-2) CK-MB (CK-2) % Troponin I 0.38 H Total Protein 6.4 Albumin 3.4 Triglycerides Cholesterol LDL Cholesterol, Calc HDL Cholesterol Cholesterol/HDL Ratio Urine Color Urine Clarity Urine pH Ur Specific [place] Urine Protein Urine Glucose (UA) Urine Ketones Urine Occult Blood Urine Nitrate Urine Bilirubin Urine Urobilinogen Ur Leukocyte Esterase Urine RBC Urine WBC Ur Squamous Epith Cells Urine Bacteria Micro UA Comment Ur Microscopic Review Urine Culture Comments Nasal Screen MRSA (PCR) Urine Opiates Screen Ur Barbiturates Screen Ur Amphetamines Screen U Benzodiazepines Scrn Urine Cocaine Screen U Cannabinoids Screen Hepatitis A IgM Ab Hep Bs Antigen Hep B Core IgM Ab Hep C IgG Ab Blood Type Blood Type Recheck Antibody Screen 05/08/18 05/08/18 05/08/18 21:38 21:50 22:30 WBC RBC Hgb POC Hgb (Calc) Hct POC Hct MCV MCH MCHC RDW Plt Count MPV Prelim Diff (Auto) Neut % (Auto) Lymph % (Auto) [place] % (Auto) Eos % (Auto) Baso % (Auto) Neut # (Auto) Lymph # (Auto) [place] # (Auto) Eos # (Auto) Baso # (Auto) WBC Differential Seg Neuts % (Manual) Lymphocytes % (Manual) Monocytes % (Manual) Eosinophils % (Manual) Abs Neuts (Manual) Differential Comment Platelet Estimate Platelet Morphology RBC Morphology PT INR APTT Puncture Site Right femoral Patient Temperature 98.6 O2 Saturation 99 ABG pH 7.39 ABG pCO2 42 ABG pO2 244 H ABG HCO3 24 ABG O2 Content 22.2 H ABG Base Excess 0.0 ABG Methemoglobin 0.6 Hemoglobin 15.7 Carboxyhemoglobin 0.6 O2 Delivery Device Ventilator Vent Setting Inspired O2 100 Critical Value No POC Sodium Sodium POC Potassium Potassium POC Chloride Chloride Carbon Dioxide Anion Gap POC BUN BUN Creatinine POC Creatinine Estimated GFR POC Glucose Random Glucose Lactic Acid 4.6 H* Calcium Phosphorus Magnesium Total Bilirubin Direct Bilirubin Indirect Bilirubin AST ALT Alkaline Phosphatase Total Creatine Kinase CK-MB (CK-2) CK-MB (CK-2) % Troponin I Total Protein Albumin Triglycerides Cholesterol LDL Cholesterol, Calc HDL Cholesterol Cholesterol/HDL Ratio Urine Color Straw Urine Clarity Clear Urine pH 6.0 Ur Specific [place] 1.005 Urine Protein 30 H Urine Glucose (UA) 500 or greater Urine Ketones Trace H Urine Occult Blood Moderate H Urine Nitrate Negative Urine Bilirubin Negative Urine Urobilinogen Less than 2 Ur Leukocyte Esterase Negative Urine RBC 5 H Urine WBC 6 H Ur Squamous Epith Cells <1 Urine Bacteria Occasional H Micro UA Comment Cath-culture ind Ur Microscopic Review Not Reportable Urine Culture Comments Cath-cult indicated Nasal Screen MRSA (PCR) Urine Opiates Screen Ur Barbiturates Screen Ur Amphetamines Screen U Benzodiazepines Scrn Urine Cocaine Screen U Cannabinoids Screen Hepatitis A IgM Ab Hep Bs Antigen Hep B Core IgM Ab Hep C IgG Ab Blood Type Blood Type Recheck Antibody Screen 05/08/18 05/09/18 05/09/18 22:30 00:07 01:10 WBC RBC Hgb POC Hgb (Calc) Hct POC Hct MCV MCH MCHC RDW Plt Count MPV Prelim Diff (Auto) Neut % (Auto) Lymph % (Auto) [place] % (Auto) Eos % (Auto) Baso % (Auto) Neut # (Auto) Lymph # (Auto) [place] # (Auto) Eos # (Auto) Baso # (Auto) WBC Differential Seg Neuts % (Manual) Lymphocytes % (Manual) Monocytes % (Manual) Eosinophils % (Manual) Abs Neuts (Manual) Differential Comment Platelet Estimate Platelet Morphology RBC Morphology PT INR APTT Puncture Site Patient Temperature O2 Saturation ABG pH ABG pCO2 ABG pO2 ABG HCO3 ABG O2 Content ABG Base Excess ABG Methemoglobin Hemoglobin Carboxyhemoglobin O2 Delivery Device Vent Setting Inspired O2 Critical Value POC Sodium Sodium POC Potassium Potassium POC Chloride Chloride Carbon Dioxide Anion Gap POC BUN BUN Creatinine POC Creatinine Estimated GFR POC Glucose 275 H Random Glucose Lactic Acid Calcium Phosphorus Magnesium Total Bilirubin 1.1 H Direct Bilirubin 0.3 H Indirect Bilirubin 0.8 AST 151 H ALT 120 H Alkaline Phosphatase 95 Total Creatine Kinase CK-MB (CK-2) CK-MB (CK-2) % Troponin I Total Protein 7.5 D Albumin 4.1 D Triglycerides Cholesterol LDL Cholesterol, Calc HDL Cholesterol Cholesterol/HDL Ratio Urine Color Urine Clarity Urine pH Ur Specific [place] Urine Protein Urine Glucose (UA) Urine Ketones Urine Occult Blood Urine Nitrate Urine Bilirubin Urine Urobilinogen Ur Leukocyte Esterase Urine RBC Urine WBC Ur Squamous Epith Cells Urine Bacteria Micro UA Comment Ur Microscopic Review Urine Culture Comments Nasal Screen MRSA (PCR) [place] detected Urine Opiates Screen Ur Barbiturates Screen Ur Amphetamines Screen U Benzodiazepines Scrn Urine Cocaine Screen U Cannabinoids Screen Hepatitis A IgM Ab Hep Bs Antigen Hep B Core IgM Ab Hep C IgG Ab Blood Type Blood Type Recheck Antibody Screen 05/09/18 05/09/18 05/09/18 01:10 02:25 04:57 WBC 18.3 H RBC 5.36 Hgb 15.2 POC Hgb (Calc) Hct 45.9 POC Hct MCV 85.6 MCH 28.3 MCHC 33.1 RDW 14.1 Plt Count 275 MPV 7.4 Prelim Diff (Auto) Neut % (Auto) 91.6 H Lymph % (Auto) 2.3 L [place] % (Auto) 5.8 Eos % (Auto) 0.2 Baso % (Auto) 0.1 Neut # (Auto) 16.7 H Lymph # (Auto) 0.4 L [place] # (Auto) 1.1 H Eos # (Auto) 0.0 Baso # (Auto) 0.0 WBC Differential . Seg Neuts % (Manual) Lymphocytes % (Manual) Monocytes % (Manual) Eosinophils % (Manual) Abs Neuts (Manual) Differential Comment Auto diff final Platelet Estimate Platelet Morphology RBC Morphology PT INR APTT Puncture Site Patient Temperature O2 Saturation ABG pH ABG pCO2 ABG pO2 ABG HCO3 ABG O2 Content ABG Base Excess ABG Methemoglobin Hemoglobin Carboxyhemoglobin O2 Delivery Device Vent Setting Inspired O2 Critical Value POC Sodium Sodium 135 L POC Potassium Potassium 3.5 POC Chloride Chloride 101 Carbon Dioxide 23.9 Anion Gap 10 POC BUN BUN 10 Creatinine 0.88 POC Creatinine Estimated GFR 87 L POC Glucose Random Glucose 336 H Lactic Acid Calcium 8.7 Phosphorus 1.7 L Magnesium 1.7 Total Bilirubin 1.1 H Direct Bilirubin Indirect Bilirubin AST 146 H ALT 116 H Alkaline Phosphatase 90 Total Creatine Kinase CK-MB (CK-2) CK-MB (CK-2) % Troponin I 2.86 H* Total Protein 7.2 Albumin 3.9 Triglycerides Cholesterol LDL Cholesterol, Calc HDL Cholesterol Cholesterol/HDL Ratio Urine Color Urine Clarity Urine pH Ur Specific [place] Urine Protein Urine Glucose (UA) Urine Ketones Urine Occult Blood Urine Nitrate Urine Bilirubin Urine Urobilinogen Ur Leukocyte Esterase Urine RBC Urine WBC Ur Squamous Epith Cells Urine Bacteria Micro UA Comment Ur Microscopic Review Urine Culture Comments Nasal Screen MRSA (PCR) Urine Opiates Screen Ur Barbiturates Screen Ur Amphetamines Screen U Benzodiazepines Scrn Urine Cocaine Screen U Cannabinoids Screen Hepatitis A IgM Ab Hep Bs Antigen Hep B Core IgM Ab Hep C IgG Ab Blood Type O Positive Blood Type Recheck Required Antibody Screen Negative 05/09/18 05/09/18 05/09/18 04:57 05:00 07:07 WBC RBC Hgb POC Hgb (Calc) Hct POC Hct MCV MCH MCHC RDW Plt Count MPV Prelim Diff (Auto) Neut % (Auto) Lymph % (Auto) [place] % (Auto) Eos % (Auto) Baso % (Auto) Neut # (Auto) Lymph # (Auto) [place] # (Auto) Eos # (Auto) Baso # (Auto) WBC Differential Seg Neuts % (Manual) Lymphocytes % (Manual) Monocytes % (Manual) Eosinophils % (Manual) Abs Neuts (Manual) Differential Comment Platelet Estimate Platelet Morphology RBC Morphology PT 11.8 H INR 1.2 APTT 27.7 Puncture Site Patient Temperature O2 Saturation ABG pH ABG pCO2 ABG pO2 ABG HCO3 ABG O2 Content ABG Base Excess ABG Methemoglobin Hemoglobin Carboxyhemoglobin O2 Delivery Device Vent Setting Inspired O2 Critical Value POC Sodium Sodium POC Potassium Potassium POC Chloride Chloride Carbon Dioxide Anion Gap POC BUN BUN Creatinine POC Creatinine Estimated GFR POC Glucose 326 H 254 H Random Glucose Lactic Acid Calcium Phosphorus Magnesium Total Bilirubin Direct Bilirubin Indirect Bilirubin AST ALT Alkaline Phosphatase Total Creatine Kinase CK-MB (CK-2) CK-MB (CK-2) % Troponin I Total Protein Albumin Triglycerides Cholesterol LDL Cholesterol, Calc HDL Cholesterol Cholesterol/HDL Ratio Urine Color Urine Clarity Urine pH Ur Specific [place] Urine Protein Urine Glucose (UA) Urine Ketones Urine Occult Blood Urine Nitrate Urine Bilirubin Urine Urobilinogen Ur Leukocyte Esterase Urine RBC Urine WBC Ur Squamous Epith Cells Urine Bacteria Micro UA Comment Ur Microscopic Review Urine Culture Comments Nasal Screen MRSA (PCR) Urine Opiates Screen Ur Barbiturates Screen Ur Amphetamines Screen U Benzodiazepines Scrn Urine Cocaine Screen U Cannabinoids Screen Hepatitis A IgM Ab Hep Bs Antigen Hep B Core IgM Ab Hep C IgG Ab Blood Type Blood Type Recheck Antibody Screen 05/09/18 05/09/18 05/09/18 07:59 09:00 09:04 WBC RBC Hgb POC Hgb (Calc) Hct POC Hct MCV MCH MCHC RDW Plt Count MPV Prelim Diff (Auto) Neut % (Auto) Lymph % (Auto) [place] % (Auto) Eos % (Auto) Baso % (Auto) Neut # (Auto) Lymph # (Auto) [place] # (Auto) Eos # (Auto) Baso # (Auto) WBC Differential Seg Neuts % (Manual) Lymphocytes % (Manual) Monocytes % (Manual) Eosinophils % (Manual) Abs Neuts (Manual) Differential Comment Platelet Estimate Platelet Morphology RBC Morphology PT INR APTT Puncture Site Patient Temperature O2 Saturation ABG pH ABG pCO2 ABG pO2 ABG HCO3 ABG O2 Content ABG Base Excess ABG Methemoglobin Hemoglobin Carboxyhemoglobin O2 Delivery Device Vent Setting Inspired O2 Critical Value POC Sodium Sodium 138 POC Potassium Potassium 2.8 L* POC Chloride Chloride 103 Carbon Dioxide 24.6 Anion Gap 10 POC BUN BUN 10 Creatinine 0.82 POC Creatinine Estimated GFR Greater than 89 POC Glucose 293 H 265 H Random Glucose 277 H Lactic Acid Calcium 8.7 Phosphorus Magnesium 1.9 Total Bilirubin Direct Bilirubin Indirect Bilirubin AST ALT Alkaline Phosphatase Total Creatine Kinase CK-MB (CK-2) CK-MB (CK-2) % Troponin I Total Protein Albumin Triglycerides Cholesterol LDL Cholesterol, Calc HDL Cholesterol Cholesterol/HDL Ratio Urine Color Urine Clarity Urine pH Ur Specific [place] Urine Protein Urine Glucose (UA) Urine Ketones Urine Occult Blood Urine Nitrate Urine Bilirubin Urine Urobilinogen Ur Leukocyte Esterase Urine RBC Urine WBC Ur Squamous Epith Cells Urine Bacteria Micro UA Comment Ur Microscopic Review Urine Culture Comments Nasal Screen MRSA (PCR) Urine Opiates Screen Ur Barbiturates Screen Ur Amphetamines Screen U Benzodiazepines Scrn Urine Cocaine Screen U Cannabinoids Screen Hepatitis A IgM Ab Hep Bs Antigen Hep B Core IgM Ab Hep C IgG Ab Blood Type Blood Type Recheck Antibody Screen 05/09/18 05/09/18 05/09/18 09:54 10:55 11:02 WBC RBC Hgb POC Hgb (Calc) Hct POC Hct MCV MCH MCHC RDW Plt Count MPV Prelim Diff (Auto) Neut % (Auto) Lymph % (Auto) [place] % (Auto) Eos % (Auto) Baso % (Auto) Neut # (Auto) Lymph # (Auto) [place] # (Auto) Eos # (Auto) Baso # (Auto) WBC Differential Seg Neuts % (Manual) Lymphocytes % (Manual) Monocytes % (Manual) Eosinophils % (Manual) Abs Neuts (Manual) Differential Comment Platelet Estimate Platelet Morphology RBC Morphology PT INR APTT Puncture Site Patient Temperature O2 Saturation ABG pH ABG pCO2 ABG pO2 ABG HCO3 ABG O2 Content ABG Base Excess ABG Methemoglobin Hemoglobin Carboxyhemoglobin O2 Delivery Device Vent Setting Inspired O2 Critical Value POC Sodium Sodium POC Potassium Potassium POC Chloride Chloride Carbon Dioxide Anion Gap POC BUN BUN Creatinine POC Creatinine Estimated GFR POC Glucose 255 H 240 H Random Glucose Lactic Acid Calcium Phosphorus Magnesium Total Bilirubin Direct Bilirubin Indirect Bilirubin AST ALT Alkaline Phosphatase Total Creatine Kinase CK-MB (CK-2) CK-MB (CK-2) % Troponin I Total Protein Albumin Triglycerides Cholesterol LDL Cholesterol, Calc HDL Cholesterol Cholesterol/HDL Ratio Urine Color Urine Clarity Urine pH Ur Specific [place] Urine Protein Urine Glucose (UA) Urine Ketones Urine Occult Blood Urine Nitrate Urine Bilirubin Urine Urobilinogen Ur Leukocyte Esterase Urine RBC Urine WBC Ur Squamous Epith Cells Urine Bacteria Micro UA Comment Ur Microscopic Review Urine Culture Comments Nasal Screen MRSA (PCR) Urine Opiates Screen Pos H Ur Barbiturates Screen Neg Ur Amphetamines Screen Neg U Benzodiazepines Scrn Pos H Urine Cocaine Screen Neg U Cannabinoids Screen Neg Hepatitis A IgM Ab Hep Bs Antigen Hep B Core IgM Ab Hep C IgG Ab Blood Type Blood Type Recheck Antibody Screen 05/09/18 05/09/18 05/09/18 12:01 13:02 13:58 WBC RBC Hgb POC Hgb (Calc) Hct POC Hct MCV MCH MCHC RDW Plt Count MPV Prelim Diff (Auto) Neut % (Auto) Lymph % (Auto) [place] % (Auto) Eos % (Auto) Baso % (Auto) Neut # (Auto) Lymph # (Auto) [place] # (Auto) Eos # (Auto) Baso # (Auto) WBC Differential Seg Neuts % (Manual) Lymphocytes % (Manual) Monocytes % (Manual) Eosinophils % (Manual) Abs Neuts (Manual) Differential Comment Platelet Estimate Platelet Morphology RBC Morphology PT INR APTT Puncture Site Patient Temperature O2 Saturation ABG pH ABG pCO2 ABG pO2 ABG HCO3 ABG O2 Content ABG Base Excess ABG Methemoglobin Hemoglobin Carboxyhemoglobin O2 Delivery Device Vent Setting Inspired O2 Critical Value POC Sodium Sodium POC Potassium Potassium POC Chloride Chloride Carbon Dioxide Anion Gap POC BUN BUN Creatinine POC Creatinine Estimated GFR POC Glucose 234 H 197 H 209 H Random Glucose Lactic Acid Calcium Phosphorus Magnesium Total Bilirubin Direct Bilirubin Indirect Bilirubin AST ALT Alkaline Phosphatase Total Creatine Kinase CK-MB (CK-2) CK-MB (CK-2) % Troponin I Total Protein Albumin Triglycerides Cholesterol LDL Cholesterol, Calc HDL Cholesterol Cholesterol/HDL Ratio Urine Color Urine Clarity Urine pH Ur Specific [place] Urine Protein Urine Glucose (UA) Urine Ketones Urine Occult Blood Urine Nitrate Urine Bilirubin Urine Urobilinogen Ur Leukocyte Esterase Urine RBC Urine WBC Ur Squamous Epith Cells Urine Bacteria Micro UA Comment Ur Microscopic Review Urine Culture Comments Nasal Screen MRSA (PCR) Urine Opiates Screen Ur Barbiturates Screen Ur Amphetamines Screen U Benzodiazepines Scrn Urine Cocaine Screen U Cannabinoids Screen Hepatitis A IgM Ab Hep Bs Antigen Hep B Core IgM Ab Hep C IgG Ab Blood Type Blood Type Recheck Antibody Screen 05/09/18 05/09/18 05/09/18 14:52 14:58 14:58 WBC RBC Hgb POC Hgb (Calc) Hct POC Hct MCV MCH MCHC RDW Plt Count MPV Prelim Diff (Auto) Neut % (Auto) Lymph % (Auto) [place] % (Auto) Eos % (Auto) Baso % (Auto) Neut # (Auto) Lymph # (Auto) [place] # (Auto) Eos # (Auto) Baso # (Auto) WBC Differential Seg Neuts % (Manual) Lymphocytes % (Manual) Monocytes % (Manual) Eosinophils % (Manual) Abs Neuts (Manual) Differential Comment Platelet Estimate Platelet Morphology RBC Morphology PT INR APTT Puncture Site Patient Temperature O2 Saturation ABG pH ABG pCO2 ABG pO2 ABG HCO3 ABG O2 Content ABG Base Excess ABG Methemoglobin Hemoglobin Carboxyhemoglobin O2 Delivery Device Vent Setting Inspired O2 Critical Value POC Sodium Sodium 140 POC Potassium Potassium 3.6 D POC Chloride Chloride 107 Carbon Dioxide 22.6 Anion Gap 10 POC BUN BUN 11 Creatinine 0.71 POC Creatinine Estimated GFR Greater than 89 POC Glucose 213 H Random Glucose 220 H Lactic Acid Calcium 8.3 L Phosphorus Magnesium 2.2 Total Bilirubin Direct Bilirubin Indirect Bilirubin AST ALT Alkaline Phosphatase Total Creatine Kinase 1274 H CK-MB (CK-2) 269.5 H CK-MB (CK-2) % 21.2 H* Troponin I 10.90 H* Total Protein Albumin Triglycerides 89 Cholesterol 129 LDL Cholesterol, Calc 61 HDL Cholesterol 50.7 Cholesterol/HDL Ratio 2.54 Urine Color Urine Clarity Urine pH Ur Specific [place] Urine Protein Urine Glucose (UA) Urine Ketones Urine Occult Blood Urine Nitrate Urine Bilirubin Urine Urobilinogen Ur Leukocyte Esterase Urine RBC Urine WBC Ur Squamous Epith Cells Urine Bacteria Micro UA Comment Ur Microscopic Review Urine Culture Comments Nasal Screen MRSA (PCR) Urine Opiates Screen Ur Barbiturates Screen Ur Amphetamines Screen U Benzodiazepines Scrn Urine Cocaine Screen U Cannabinoids Screen Hepatitis A IgM Ab Nonreactive Hep Bs Antigen Nonreactive Hep B Core IgM Ab Nonreactive Hep C IgG Ab Nonreactive Blood Type Blood Type Recheck Antibody Screen 05/09/18 05/09/18 05/09/18 14:58 16:00 16:59 WBC RBC Hgb POC Hgb (Calc) Hct POC Hct MCV MCH MCHC RDW Plt Count MPV Prelim Diff (Auto) Neut % (Auto) Lymph % (Auto) [place] % (Auto) Eos % (Auto) Baso % (Auto) Neut # (Auto) Lymph # (Auto) [place] # (Auto) Eos # (Auto) Baso # (Auto) WBC Differential Seg Neuts % (Manual) Lymphocytes % (Manual) Monocytes % (Manual) Eosinophils % (Manual) Abs Neuts (Manual) Differential Comment Platelet Estimate Platelet Morphology RBC Morphology PT INR APTT Puncture Site Patient Temperature O2 Saturation ABG pH ABG pCO2 ABG pO2 ABG HCO3 ABG O2 Content ABG Base Excess ABG Methemoglobin Hemoglobin Carboxyhemoglobin O2 Delivery Device Vent Setting Inspired O2 Critical Value POC Sodium Sodium POC Potassium Potassium POC Chloride Chloride Carbon Dioxide Anion Gap POC BUN BUN Creatinine POC Creatinine Estimated GFR POC Glucose 201 H 163 H Random Glucose Lactic Acid Calcium Phosphorus Magnesium Total Bilirubin Direct Bilirubin Indirect Bilirubin AST ALT Alkaline Phosphatase Total Creatine Kinase CK-MB (CK-2) CK-MB (CK-2) % Troponin I Cancelled Total Protein Albumin Triglycerides Cancelled Cholesterol Cancelled LDL Cholesterol, Calc Cancelled HDL Cholesterol Cancelled Cholesterol/HDL Ratio Cancelled Urine Color Urine Clarity Urine pH Ur Specific [place] Urine Protein Urine Glucose (UA) Urine Ketones Urine Occult Blood Urine Nitrate Urine Bilirubin Urine Urobilinogen Ur Leukocyte Esterase Urine RBC Urine WBC Ur Squamous Epith Cells Urine Bacteria Micro UA Comment Ur Microscopic Review Urine Culture Comments Nasal Screen MRSA (PCR) Urine Opiates Screen Ur Barbiturates Screen Ur Amphetamines Screen U Benzodiazepines Scrn Urine Cocaine Screen U Cannabinoids Screen Hepatitis A IgM Ab Hep Bs Antigen Hep B Core IgM Ab Hep C IgG Ab Blood Type Blood Type Recheck Antibody Screen 05/09/18 05/09/18 17:45 18:04 WBC RBC Hgb POC Hgb (Calc) Hct POC Hct MCV MCH MCHC RDW Plt Count MPV Prelim Diff (Auto) Neut % (Auto) Lymph % (Auto) [place] % (Auto) Eos % (Auto) Baso % (Auto) Neut # (Auto) Lymph # (Auto) [place] # (Auto) Eos # (Auto) Baso # (Auto) WBC Differential Seg Neuts % (Manual) Lymphocytes % (Manual) Monocytes % (Manual) Eosinophils % (Manual) Abs Neuts (Manual) Differential Comment Platelet Estimate Platelet Morphology RBC Morphology PT INR APTT Puncture Site Patient Temperature O2 Saturation ABG pH ABG pCO2 ABG pO2 ABG HCO3 ABG O2 Content ABG Base Excess ABG Methemoglobin Hemoglobin Carboxyhemoglobin O2 Delivery Device Vent Setting Inspired O2 Critical Value POC Sodium Sodium POC Potassium Potassium POC Chloride Chloride Carbon Dioxide Anion Gap POC BUN BUN Creatinine POC Creatinine Estimated GFR POC Glucose 180 H Random Glucose Lactic Acid 2.4 H Calcium Phosphorus Magnesium Total Bilirubin Direct Bilirubin Indirect Bilirubin AST ALT Alkaline Phosphatase Total Creatine Kinase CK-MB (CK-2) CK-MB (CK-2) % Troponin I Total Protein Albumin Triglycerides Cholesterol LDL Cholesterol, Calc HDL Cholesterol Cholesterol/HDL Ratio Urine Color Urine Clarity Urine pH Ur Specific [place] Urine Protein Urine Glucose (UA) Urine Ketones Urine Occult Blood Urine Nitrate Urine Bilirubin Urine Urobilinogen Ur Leukocyte Esterase Urine RBC Urine WBC Ur Squamous Epith Cells Urine Bacteria Micro UA Comment Ur Microscopic Review Urine Culture Comments Nasal Screen MRSA (PCR) Urine Opiates Screen Ur Barbiturates Screen Ur Amphetamines Screen U Benzodiazepines Scrn Urine Cocaine Screen U Cannabinoids Screen Hepatitis A IgM Ab Hep Bs Antigen Hep B Core IgM Ab Hep C IgG Ab Blood Type Blood Type Recheck Antibody Screen - Imaging Impressions Chest X-Ray 05/08/18 20:43 CONCLUSION: 1. ET tube in good position. 2. Gastric tube side-port is in the lower chest and the tube needs to be advanced at least [address] 05/08/18 20:43 CONCLUSION: 1. Punctate hyperdensity characteristic of hemorrhage in the right mid araesli. 2. No acute findings in the supratentorial brain. . Cervical Spine CT 05/08/18 20:44 CONCLUSION: 1. Moderate degenerative changes at C6-7. 2. Otherwise negative exam. Review/Management - Diagnosis (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 fib arrest underlying code cool CT brain scan reviewed which demonstrated possible tiny hemorrhage. 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 Does not appear to be clinically relevant at the present Recommendation When medically stabilized, will obtain MRI MRA brain Follow exam
[2018-05-09 20:10] LABS: ABG Base Excess -4.3 mmol/L (-2-2); ABG PCO2 24 mmHg (38-42); ABG PO2 140 mmHG (61-120)
[2018-05-09 21:34] LABS: Blood Urea Nitrogen 11 mg/dL (7-18); Calcium 8.3 mg/dL (8.5-10.1); Carbon Dioxide 22.2 meq/L (21.0-32.0); Glomerular Filtration Rate Greater Than 89 mL/min (>89); Glucose,Random 179 mg/dL (74-106)
[2018-05-09 21:35] LABS: Phosphorus 2.1 mg/dL (2.5-4.9)
[2018-05-09 22:22] LABS: Anion Gap 10 meq/L (5-15); Chloride 109 meq/L (98-107); Potassium 3.3 meq/L (3.5-5.1); Sodium 141 meq/L (136-145)
[2018-05-09] MEDS: Amiodarone Inj 450 MG in Sodium Chlor 0.9% Inj 241 ML IV.CONT PRN (22:55)
[2018-05-10] MEDS ORDERED: Albumin Human 5% Inj 500 ML IV.SIG ONE (00:23)
[2018-05-10 01:47] LABS: Thyroid Stimulating Hormone 0.285 uIU/mL (0.358-3.740)
[2018-05-10 02:29] LABS: Anion Gap 10 meq/L (5-15); Blood Urea Nitrogen 11 mg/dL (7-18); Calcium 8.2 mg/dL (8.5-10.1); Carbon Dioxide 22.1 meq/L (21.0-32.0); Chloride 109 meq/L (98-107); Glomerular Filtration Rate Greater Than 89 mL/min (>89); Glucose,Random 164 mg/dL (74-106); Potassium 3.2 meq/L (3.5-5.1); Sodium 141 meq/L (136-145)
[2018-05-10 03:16] LABS: Anion Gap 9 meq/L (5-15); Blood Urea Nitrogen 11 mg/dL (7-18); Calcium 7.8 mg/dL (8.5-10.1); Carbon Dioxide 22.4 meq/L (21.0-32.0); Chloride 110 meq/L (98-107); Glomerular Filtration Rate Greater Than 89 mL/min (>89); Glucose,Random 151 mg/dL (74-106); Magnesium 1.9 mg/dL (1.5-2.5); Potassium 3.2 meq/L (3.5-5.1); Sodium 141 meq/L (136-145)
[2018-05-10] MEDS: Chlorhexidine Gluconate 2% 1 Pack (2 Cloths) TOPICAL SCH (03:47)
[2018-05-10] MEDS: Oral Hygiene Kit OROPHARYNG SCH ×3 (03:48→16:03)
[2018-05-10] MEDS: Cisatracurium Inj 100 MG in Sodium Chlor 0.9% Inj 240 ML IV.CONT PRN (04:12)
--- NOTE | 2018-05-10 04:40 | XR ---
EXAM DATE: 05/10/2018 4:32 AM EST AGE/SEX: 63 years / Male INDICATIONS: Shortness of breath, possible pulmonary disease. CLINICAL DATA: This is the patient's subsequent encounter. Patient reports that signs and symptoms h ave been present for 3 days and indicates a pain score of Nonresponsive. MEDICAL/SURGICAL HISTORY: Non-responsive. Non-responsive. COMPARISON: [facility] [place], CHEST 1V SINGLE AP, 05/08/2018. . FINDINGS: Single view the chest demonstrates the endotracheal tube and nasogastric both good position. There is consolidation in the medial right lung. I don't see any visible pneumothorax. Left lungs clear. CONCLUSION: Infiltrating the medial right lower lobe or right middle lobe. Infiltrate is increased from the previ ous study Electronically signed by: Luis Enrique Pham MD 05/10/2018 4:39 AM EST
[2018-05-10] MEDS: Artificial Tears Opth Drops 15 ML Bottle EACH EYE SCH ×3 (05:34→21:24)
[2018-05-10] MEDS: Midazolam 50 MG/50 ML Inj 50 MG/50 ML BAG IV.CONT PRN (05:35)
[2018-05-10] MEDS: Propofol 1000 mg/100 ml Inj 1,000 MG/100 ML BOTTLE IV.CONT PRN ×2 (06:06→18:57)
[2018-05-10 06:10] LABS: Baso % (Auto) 0.1 % (0.0-2.0); Eos % (Auto) 0.1 % (0.0-4.0); Hemoglobin 14.3 gm/dL (13.0-17.0); Lymph # (Auto) 0.5 th/mm3 (1.0-4.8); Lymph % (Auto) 2.8 % (9.0-44.0); Mean Corpuscular Hemoglobin 28.7 pg (27.0-34.0); Mean Corpuscular Volume 84.2 fL (80.0-100.0); Mean Platelet Volume 7.7 fL (7.0-11.0); Mono # (Auto) 0.6 th/mm3 (0.0-0.9); Mono % (Auto) 3.2 % (0.0-8.0); Neut # (Auto) 16.1 th/mm3 (1.8-7.7); Neut % (Auto) 93.8 % (16.0-70.0); Platelet Count 216 th/mm3 (150-450); Red Blood Count 4.99 mil/mm3 (4.50-5.90); Red Cell Distribution Width 14.2 % (11.6-17.2); White Blood Count 17.2 th/mm3 (4.0-11.0)
[2018-05-10 06:18] LABS: Activated Partial Thrombo Time 31.3 sec (23.4-31.7); INR 1.1 Ratio; Prothrombin Time 11.4 sec (9.8-11.6)
[2018-05-10 06:36] LABS: Albumin 3.6 g/dL (3.4-5.0); Anion Gap 12 meq/L (5-15); Aspartate Aminotransferase 228 U/L (15-37); Blood Urea Nitrogen 11 mg/dL (7-18); Calcium 8.2 mg/dL (8.5-10.1); Carbon Dioxide 21.3 meq/L (21.0-32.0); Chloride 109 meq/L (98-107); Glomerular Filtration Rate Greater Than 89 mL/min (>89); Glucose,Random 138 mg/dL (74-106); Magnesium 1.9 mg/dL (1.5-2.5); Potassium 3.1 meq/L (3.5-5.1); Sodium 142 meq/L (136-145)
[2018-05-10 06:38] LABS: Alanine Aminotransferase 96 U/L (12-78)
[2018-05-10 06:56] LABS: ABG Base Excess -2.8 mmol/L (-2-2); ABG PCO2 39 mmHg (38-42); ABG PO2 96 mmHG (61-120)
[2018-05-10 07:17] LABS: Alkaline Phosphatase 63 U/L (45-117); Creatine Kinase 1376 U/L (39-308); Total Protein 6.1 g/dL (6.4-8.2)
[2018-05-10] MEDS ORDERED: hydrALAZINE HCl Inj 20 MG/ML Vial IV.PUSH PRN (07:26)
[2018-05-10] MEDS ORDERED: Potassium Chlor 40 mEq Premix 40 MEQ/100 ML PIGGYBACK IV.SIG ONE (08:00)
[2018-05-10] MEDS: Senna/Docusate Sodium 8.6/50 MG Tablet PO SCH ×2 (08:26→20:25)
[2018-05-10] MEDS: Chlorhexidine 0.12% Oral Kit 15 ML UDC OROPHARYNG SCH ×2 (08:27→20:25)
[2018-05-10 08:34] LABS: Creatine Kinase MB 368.5 ng/mL (0.5-3.6)
[2018-05-10 09:02] LABS: CKMB Percent 26.8 % (0.0-4.0)
[2018-05-10] MEDS: Labetalol HCl Inj 100 MG/20 ML Vial IV.PUSH PRN ×2 (09:17→14:30)
[2018-05-10] MEDS: SODIUM CHLOR 0.9% IV.SIG SCH ×2 (09:25→10:31)
[2018-05-10] MEDS: MAGNESIUM SULFATE IV.SIG SCH ×2 (09:25→10:31)
[2018-05-10] MEDS: Sod Chloride 0.9% Inj 1,000 ML IV.CONT SCH ×2 (09:33→21:45)
--- NOTE | 2018-05-10 10:52 | P.PNCA ---
Subjective Interval history: Intubated. Sedated. Medications and Allergies Active Medications: Active Medications Acetaminophen (Tylenol) 650 mg PO Q6H PRN PRN Reason: PAIN 1-5 AND/OR FEVER >101F Al Hydroxide/Mg Hydroxide (Milk Of Magnesia Liq) 30 ml PO Q12H PRN PRN Reason: Mild Constipation Albuterol (Albuterol Neb (Prn)) 2.5 mg NEB Q2HR NEB PRN PRN Reason: DYSPNEA Albuterol (Duoneb Neb (Chao)) 1 ampul NEB Q4HR NEB [facility] Last Admin: 05/10/18 07:42 Dose: 1 ampul Artificial Tears (Tears Naturale Opth Drops) 1 drop EACH EYE Q8H [facility] Last Admin: 05/10/18 05:34 Dose: 1 drop Bisacodyl (Dulcolax Supp) 10 mg RECTAL DAILY PRN PRN Reason: SEVERE CONSITIPATION Buspirone HCl (Buspar) 15 mg NG/OG BID PRN PRN Reason: SHIVERING Chlorhexidine Gluconate (Peridex 0.12% Oral Kit) 15 ml OROPHARYNG BID@0800, 2000 [facility] Last Admin: 05/10/18 08:27 Dose: 15 ml Chlorhexidine Gluconate (Chlorhexidine 2% Cloth) 3 pack TOPICAL DAILY@0400 [facility] Stop: 05/14/18 03:59 Last Admin: 05/10/18 03:47 Dose: Not Given Chlorhexidine Gluconate (Chlorhexidine 2% Cloth) 3 pack TOPICAL DAILY@0400 PRN PRN Reason: Extra cloth needed Stop: 05/14/18 03:59 Dextrose (D50w Vial) 50 ml IV.PUSH UNSCH PRN PRN Reason: PER HYPOGLYCEMIA PROTOCOL Hydralazine HCl (Apresoline Inj) 10 mg IV.PUSH Q1H PRN PRN Reason: Sbp>140, Dbp>90 Last Admin: 05/10/18 08:00 Dose: 10 mg Sodium Chloride (Ns Inj) 1,000 mls @ 84 mls/hr IV.CONT .[id number] [facility] Last Admin: 05/10/18 09:33 Dose: 84 mls/hr Propofol (Diprivan 1000 Mg/100 Ml Inj) 1,000 mg in 100 mls @ 2.449 mls/hr IV.CONT TITRATE PRN; Protocol PRN Reason: Per Protocol Last Admin: 05/10/18 06:06 Dose: 35 mcg/kg/min, 17.15 mls/hr Midazolam HCl (Versed Inj) 50 mg in 50 mls @ 2 mls/hr IV.CONT TITRATE PRN; Protocol PRN Reason: Per Protocol Last Admin: 05/10/18 05:35 Dose: 4 mg/hr, 4 mls/hr Cisatracurium Besylate 100 mg/ (Sodium Chloride) 250 mls @ 40.41 mls/hr IV.CONT TITRATE PRN; Protocol PRN Reason: Per Protocol Last Admin: 05/10/18 04:12 Dose: 3 mcg/kg/min, 36.74 mls/hr Fentanyl (Fentanyl 10 Mcg/Ml Premix Drip) 2,500 mcg in 250 mls @ 5 mls/hr IV.SIG TITRATE PRN; Protocol PRN Reason: Per Protocol Insulin Human Regular 100 unit (/ Sodium Chloride) 100 mls @ 0.5 mls/hr IV.CONT TITRATE PRN; Protocol PRN Reason: See protocol Last Titration: 05/10/18 10:05 Dose: 1.5 unit/hr, 1.5 mls/hr Norepinephrine Bitartrate 16 (mg/ Sodium Chloride) 250 mls @ 1.87 mls/hr IV.CONT TITRATE PRN; Protocol PRN Reason: See Protocol Last Titration: 05/09/18 14:45 Dose: 0 mcg/min, 0 mls/hr Amiodarone HCl 450 mg/ Sodium (Chloride) 250 mls @ 33.33 mls/hr IV.CONT TITRATE PRN; Protocol PRN Reason: Per Protocol Last Admin: 05/09/18 22:55 Dose: 0.5 mg/min, 16.66 mls/hr Potassium Chloride (Kcl 40 Meq Premix Inj) 40 meq in 100 mls @ 25 mls/hr IV.SIG ONCE ONE Stop: 05/10/18 11:59 Last Admin: 05/10/18 08:21 Dose: 25 mls/hr Magnesium Sulfate 1 gm/ Sodium (Chloride) 100 mls @ 100 mls/hr IV.SIG Q1H [facility] Stop: 05/10/18 10:59 Last Admin: 05/10/18 10:31 Dose: 100 mls/hr Labetalol HCl (Trandate Inj) 10 mg IV.PUSH Q1H PRN PRN Reason: Sbp>140, Dbp>90, Hr>65 Last Admin: 05/10/18 09:17 Dose: 10 mg Lactulose (Lactulose Liq) 30 ml PO DAILY PRN PRN Reason: SEVERE CONSITIPATION Lorazepam (Ativan Inj) 1 mg IV.PUSH Q1H PRN PRN Reason: SEE LABEL COMMENTS Meperidine HCl (Demerol Inj) 25 mg IV.PUSH Q2H PRN PRN Reason: SHIVERING Midazolam HCl (Versed Inj) 2 mg IV.PUSH Q1H PRN PRN Reason: SEE LABEL COMMENTS Miscellaneous Medication () 1 each OROPHARYNG 0000,0400,1200,1600 [facility] Last Admin: 05/10/18 03:48 Dose: 1 each Morphine Sulfate (Morphine Inj) 2 mg IV.PUSH Q2H PRN PRN Reason: PAIN SCALE 6 TO 10 Ondansetron HCl (Zofran Inj) 4 mg IV.PUSH Q6H PRN PRN Reason: NAUSEA OR VOMITING Pantoprazole Sodium (Protonix Inj) 40 mg IV.PUSH Q24H [facility] Last Admin: 05/09/18 12:15 Dose: Not Given Senna/Docusate Sodium (Lizbeth-Colace) 1 tab PO BID [facility] Last Admin: 05/10/18 08:26 Dose: 1 tab Sennosides (Senokot) 17.2 mg PO Q12H PRN PRN Reason: Moderate Constipation Sodium Chloride (Ns Flush) 2 ml IV.FLUSH BID [facility] Last Admin: 05/10/18 08:26 Dose: 2 ml Sodium Chloride (Ns Flush) 2 ml IV.FLUSH PRN PRN PRN Reason: FLUSH AFTER USING IV ACCESS Terbutaline Sulfate (Brethine Inj) 1 mg SQ UNSCH PRN PRN Reason: For Extravasation Terbutaline Sulfate (Brethine Inj) 1 mg SQ UNSCH PRN PRN Reason: For Extravasation Allergies Allergy/AdvReac Type Severity Reaction Status Date / Time No Known Allergies Allergy Uncoded 02/17/15 12:05 Home Medications Medication Instructions Recorded Confirmed Type No Known Home Medications 05/08/18 05/08/18 History Physical Exam Vital signs: Vital Signs 05/09/18 11:00 05/09/18 11:01 05/09/18 11:16 Temperature 91.4 F L 91.4 F L 91.6 F L Pulse Rate 59 L 59 L 58 L Respiratory Rate 15 14 14 Blood Pressure 95/69 L 93/68 L Pulse Oximetry 100 100 100 05/09/18 11:49 05/09/18 12:00 05/09/18 12:01 Temperature 91.6 F L 91.6 F L 91.6 F L Pulse Rate 53 L 58 L 58 L Respiratory Rate 14 14 14 Blood Pressure 105/71 97/68 L Pulse Oximetry 100 100 100 05/09/18 12:15 05/09/18 12:30 05/09/18 12:45 Temperature 91.8 F L 91.9 F L 92.1 F L Pulse Rate 60 60 61 Respiratory Rate 14 14 14 Blood Pressure 97/69 L 99/72 L 94/66 L Pulse Oximetry 100 100 100 05/09/18 13:00 05/09/18 13:15 05/09/18 13:20 Temperature 92.3 F L 92.3 F L Pulse Rate 61 60 54 L Respiratory Rate 14 14 14 Blood Pressure 106/78 109/80 Pulse Oximetry 100 100 05/09/18 13:30 05/09/18 13:45 05/09/18 14:00 Temperature 92.5 F L 92.5 F L 92.5 F L Pulse Rate 59 L 59 L 62 Respiratory Rate 14 14 19 Blood Pressure 111/74 107/78 Pulse Oximetry 100 100 100 05/09/18 14:02 05/09/18 14:15 05/09/18 14:30 Temperature 92.5 F L 92.7 F L 92.8 F L Pulse Rate 65 64 65 Respiratory Rate 14 14 14 Blood Pressure 105/75 107/71 108/76 Pulse Oximetry 100 100 100 05/09/18 14:45 05/09/18 15:00 05/09/18 15:10 Temperature 93.0 F L 93.2 F L Pulse Rate 64 63 62 Respiratory Rate 15 14 14 Blood Pressure 107/73 107/75 Pulse Oximetry 100 100 100 05/09/18 15:15 05/09/18 16:00 05/09/18 17:00 Temperature 93.2 F L 93.4 F L 93.9 F L Pulse Rate 63 68 66 Respiratory Rate 14 15 15 Blood Pressure 107/75 110/75 108/71 Pulse Oximetry 100 100 100 05/09/18 18:00 05/09/18 19:00 05/09/18 19:17 Temperature 93.7 F L Pulse Rate 66 63 62 Respiratory Rate 15 15 Blood Pressure 106/73 Pulse Oximetry 100 100 05/09/18 20:00 05/09/18 21:00 05/09/18 22:00 Temperature 93.2 F L Pulse Rate 63 61 61 Respiratory Rate 15 12 12 Blood Pressure 121/68 122/65 111/57 L Pulse Oximetry 100 100 100 05/09/18 23:00 05/09/18 23:48 05/10/18 00:00 Temperature 93.2 F L Pulse Rate 61 61 62 Respiratory Rate 12 12 12 Blood Pressure 117/60 123/61 Pulse Oximetry 100 100 05/10/18 01:00 05/10/18 02:00 05/10/18 03:00 Temperature Pulse Rate 63 63 70 Respiratory Rate 12 12 12 Blood Pressure Pulse Oximetry 100 100 100 05/10/18 03:12 05/10/18 03:14 05/10/18 04:00 Temperature 94.5 F L Pulse Rate 67 70 Respiratory Rate 12 12 12 Blood Pressure Pulse Oximetry 99 100 05/10/18 05:00 05/10/18 06:00 05/10/18 06:30 Temperature 95.9 F L Pulse Rate 71 74 72 Respiratory Rate 12 12 12 Blood Pressure Pulse Oximetry 100 100 98 05/10/18 07:00 05/10/18 07:43 05/10/18 08:00 Temperature 96.1 F L 96.4 F L Pulse Rate 74 79 Respiratory Rate 12 12 12 Blood Pressure 143/82 H 135/74 Pulse Oximetry 98 98 98 05/10/18 09:00 Temperature Pulse Rate 99 H Respiratory Rate Blood Pressure Pulse Oximetry Intake & Output 05/09/18 05/10/18 05/10/18 18:59 06:59 18:59 Intake Total 2074 1100 / 1100 Output Total 1200 / 1200 280 / 280 Balance 875 / 875 1795 / 1795 1100 / 1100 Weight 78 kg Intake: IV 2074 1100 / 1100 Cordarone Inj 450 MG In D5W Inj 250 / 250 241 ML @ 1 MG/MIN 33.33 mls/hr IV.CONT TITRATE PRN Rx#: [id number] Nimbex Inj 100 MG In NS Inj 240 175 / 175 75 / 75 ML @ 3.3 MCG/KG/MIN 40.41 mls/ hr IV.CONT TITRATE PRN Rx#: [id number] DOPamine 800 MG/500 ML Premix 240 / 240 800 mg In 500 ml @ 3 MCG/KG/MIN 9.185 mls/hr IV.CONT TITRATE PRN Rx#:[id number] Versed Inj 50 mg In 50 ml @ 2 50 / 50 MG/HR 2 mls/hr IV.CONT TITRATE PRN Rx#:[id number] Diprivan 1000 mg/100 ml Inj 1, 200 / 200 200 / 200 000 mg In 100 ml @ 5 MCG/KG/MIN 2.449 mls/hr IV.CONT TITRATE PRN Rx#:[id number] NS Inj 1,000 ML @ 84 mls/hr IV. 1000 / 1000 1000 / 1000 1000 / 1000 CONT .[id number] [facility] Rx#:[id number] Alburx 5% Inj 500 ML @ 250 mls/ 500 / 500 hr IV.SIG ONCE ONE Rx#:[id number] Magnesium Sulfate 1 gm/D5W 100 100 / 100 ml Premix 100 ML @ 100 mls/hr IV.SIG ONCE ONE Rx#:[id number] Magnesium Sulfate Inj 1 GM In 100 / 100 NS Inj 98 ML @ 100 mls/hr IV. SIG Q1H [facility] Rx#:[id number] KCl 20 mEq Premix Inj 20 meq In 100 / 100 100 ml @ 50 mls/hr IV.SIG ONCE ONE Rx#:[id number] Potassium Phosphate Inj 30 MMOL 260 / 260 In NS Inj 250 ML @ 43.333 mls/ hr IV.SIG ONCE ONE Rx#:[id number] Output: Urine Amount (Catheter) 550 / 550 280 / 280 Indwelling Temp Sensing 550 / 550 280 / 280 Catheter Gastric Drainage 650 / 650 Pre-Hospital Orogastric Tube 650 / 650 Other: # Bowel Movements 0 0 - Constitutional Comments: Intubated. Sedated. - Routine Neck Exam Absent: JVD - Routine Respiratory Exam Comments: Lungs clear anteriorly. - Routine Cardiovascular Exam Present: RRR, S1, S2. Absent: murmur, gallop - Routine Abdominal Exam Present: soft, normoactive bowel sounds. Absent: organomegaly - Routine Extremities Exam Absent: cyanosis, clubbing, edema - Urinary Catheter Management Indwelling Temp Sensing Catheter Cath placed during this visit: yes Reason for continuing: Other continuation reason Insertion date: 05/08/18 Insertion time: 22:40 Results 05/10/18 05:00 05/10/18 05:00 Cardiac Enzymes 05/08/18 05/09/18 05/09/18 Range/Units 20:45 01:10 02:25 AST 107 H 151 H 146 H (15-37) U/L CK-MB (CK-2) (0.5-3.6) ng/mL Troponin I 0.38 H 2.86 H* (0.02-0.05) ng/mL 05/09/18 05/09/18 05/10/18 Range/Units 14:58 14:58 00:30 AST (15-37) U/L CK-MB (CK-2) 269.5 H (0.5-3.6) ng/mL Troponin I 10.90 H* Cancelled 28.20 H* (0.02-0.05) ng/mL 05/10/18 Range/Units 05:00 AST 228 H (15-37) U/L CK-MB (CK-2) 368.5 H (0.5-3.6) ng/mL Troponin I 32.40 H* (0.02-0.05) ng/mL Coagulation 05/08/18 05/09/18 05/10/18 Range/Units 20:45 04:57 05:00 PT 11.2 11.8 H 11.4 (9.8-11.6) sec APTT 24.5 27.7 31.3 (23.4-31.7) sec Lipids 05/09/18 05/09/18 Range/Units 14:58 14:58 Triglycerides 89 Cancelled (42-150) mg/dL Cholesterol 129 Cancelled (120-200) mg/dL HDL Cholesterol 50.7 Cancelled (40.0-60.0) mg/dL Cholesterol/HDL Ratio 2.54 Cancelled Ratio CBC 05/08/18 05/09/18 05/10/18 Range/Units 20:45 04:57 05:00 WBC 13.6 H 18.3 H 17.2 H (4.0-11.0) th/mm3 RBC 5.35 5.36 4.99 (4.50-5.90) mil/mm3 Hgb 15.2 15.2 14.3 (13.0-17.0) gm/dL Hct 45.6 45.9 42.0 (39.0-51.0) % Plt Count 327 275 216 (150-450) th/mm3 Neut # (Auto) 8.1 H 16.7 H 16.1 H (1.8-7.7) th/mm3 Lymph # (Auto) 3.1 0.4 L 0.5 L (1.0-4.8) th/mm3 Mayes # (Auto) 0.9 1.1 H 0.6 (0.0-0.9) th/mm3 Eos # (Auto) 1.4 H 0.0 0.0 (0.0-0.4) th/mm3 Baso # (Auto) 0.1 0.0 0.0 (0.0-0.2) th/mm3 Comprehensive Metabolic Panel 05/08/18 05/09/18 05/09/18 Range/Units 20:45 01:10 02:25 Sodium 137 135 L (136-145) meq/L Potassium 3.2 L 3.5 (3.5-5.1) meq/L Chloride 100 101 (98-107) meq/L Carbon Dioxide 20.5 L 23.9 (21.0-32.0) meq/L BUN 7 10 (7-18) mg/dL Creatinine 1.13 0.88 (0.60-1.30) mg/dL Calcium 8.9 8.7 (8.5-10.1) mg/dL Direct Bilirubin 0.3 H (0.0-0.2) mg/dL Indirect Bilirubin 0.8 (0.0-0.8) mg/dL AST 107 H 151 H 146 H (15-37) U/L ALT 86 H 120 H 116 H (12-78) U/L Alkaline Phosphatase 88 95 90 (45-117) U/L Total Protein 6.4 7.5 D 7.2 (6.4-8.2) g/dL Albumin 3.4 4.1 D 3.9 (3.4-5.0) g/dL 05/09/18 05/09/18 05/09/18 Range/Units 09:00 14:58 20:00 Sodium 138 140 141 (136-145) meq/L Potassium 2.8 L* 3.6 D 3.3 L (3.5-5.1) meq/L Chloride 103 107 109 H (98-107) meq/L Carbon Dioxide 24.6 22.6 22.2 (21.0-32.0) meq/L BUN 10 11 11 (7-18) mg/dL Creatinine 0.82 0.71 0.68 (0.60-1.30) mg/dL Calcium 8.7 8.3 L 8.3 L (8.5-10.1) mg/dL Direct Bilirubin (0.0-0.2) mg/dL Indirect Bilirubin (0.0-0.8) mg/dL AST (15-37) U/L ALT (12-78) U/L Alkaline Phosphatase (45-117) U/L Total Protein (6.4-8.2) g/dL Albumin (3.4-5.0) g/dL 05/10/18 05/10/18 05/10/18 Range/Units 00:30 02:00 05:00 Sodium 141 141 142 (136-145) meq/L Potassium 3.2 L 3.2 L 3.1 L (3.5-5.1) meq/L Chloride 109 H 110 H 109 H (98-107) meq/L Carbon Dioxide 22.1 22.4 21.3 (21.0-32.0) meq/L BUN 11 11 11 (7-18) mg/dL Creatinine 0.59 L 0.54 L 0.56 L (0.60-1.30) mg/dL Calcium 8.2 L 7.8 L 8.2 L (8.5-10.1) mg/dL Direct Bilirubin (0.0-0.2) mg/dL Indirect Bilirubin (0.0-0.8) mg/dL AST 228 H (15-37) U/L ALT 96 H (12-78) U/L Alkaline Phosphatase 63 (45-117) U/L Total Protein 6.1 L D (6.4-8.2) g/dL Albumin 3.6 (3.4-5.0) g/dL Intake and Output 05/09/18 05/10/18 05/10/18 22:59 06:59 14:59 Intake Total 1535 / 1535 975 / 975 1100 / 1100 Output Total 1200 / 1200 280 / 280 Balance 335 / 335 695 / 695 1100 / 1100 Intake: IV 1535 / 1535 975 / 975 1100 / 1100 Cordarone Inj 450 MG In D5W Inj 250 / 250 241 ML @ 1 MG/MIN 33.33 mls/hr IV.CONT TITRATE PRN Rx#: [id number] Nimbex Inj 100 MG In NS Inj 240 75 / 75 75 / 75 ML @ 3.3 MCG/KG/MIN 40.41 mls/ hr IV.CONT TITRATE PRN Rx#: [id number] Versed Inj 50 mg In 50 ml @ 2 50 / 50 MG/HR 2 mls/hr IV.CONT TITRATE PRN Rx#:[id number] Diprivan 1000 mg/100 ml Inj 1, 200 / 200 100 / 100 000 mg In 100 ml @ 5 MCG/KG/MIN 2.449 mls/hr IV.CONT TITRATE PRN Rx#:[id number] NS Inj 1,000 ML @ 84 mls/hr IV. 1000 / 1000 1000 / 1000 CONT .[id number] [facility] Rx#:[id number] Alburx 5% Inj 500 ML @ 250 mls/ 500 / 500 hr IV.SIG ONCE ONE Rx#:[id number] Magnesium Sulfate Inj 1 GM In 100 / 100 NS Inj 98 ML @ 100 mls/hr IV. SIG Q1H [facility] Rx#:[id number] Potassium Phosphate Inj 30 MMOL 260 / 260 In NS Inj 250 ML @ 43.333 mls/ hr IV.SIG ONCE ONE Rx#:[id number] Output: Urine Amount (Catheter) 550 / 550 280 / 280 Indwelling Temp Sensing 550 / 550 280 / 280 Catheter Gastric Drainage 650 / 650 Pre-Hospital Orogastric Tube 650 / 650 Other: # Bowel Movements 0 0 Weight 78 kg - Imaging and Cardiology Imaging: Impressions Chest X-Ray 05/08/18 20:43 CONCLUSION: 1. ET tube in good position. 2. Gastric tube side-port is in the lower chest and the tube needs to be advanced at least [address] 05/08/18 20:43 CONCLUSION: 1. Punctate hyperdensity characteristic of hemorrhage in the right mid araseli. 2. No acute findings in the supratentorial brain. . Cervical Spine CT 05/08/18 20:44 CONCLUSION: 1. Moderate degenerative changes at C6-7. 2. Otherwise negative exam. Chest X-Ray 05/10/18 06:00 CONCLUSION: Infiltrating the medial right lower lobe or right middle lobe. Infiltrate is increased from the previous study Assessment and Plan - Assessment (1) ST elevation (STEMI) myocardial infarction involving left anterior descending coronary artery Code(s): I21.02 - ST elevation (STEMI) myocardial infarction involving left anterior descending coronary artery Status: Acute Plan: Overall hemodynamically stable. Off any pressors. Unfortunately echo suggests patient sustained large LAD coronary territory infarction, EF now 30%. Recommend conservative management unless he neurologically recovers, is cleared for anticoagulation/antiplatelet therapy, and significant residual ischemia is demonstrated by a nuclear stress test. Consider starting oral beta eleuterio. (2) Cardiac arrest Code(s): I46.9 - Cardiac arrest, cause unspecified Status: Acute Plan: No further ventricular tachyarrhythmias. Continue Amiodarone drip for now. - Plan Code Status: full code Discussed Condition With: nurse
[2018-05-10] MEDS: fentaNYL 10 mcg/mL Premix Drip 2,500 MCG/250 ML BAG IV.SIG PRN ×2 (11:02→20:46)
--- NOTE | 2018-05-10 12:10 | P.PNNEU ---
Subjective Subjective Comments: No acute events Active Medications: Active Medications Acetaminophen (Tylenol) 650 mg PO Q6H PRN PRN Reason: PAIN 1-5 AND/OR FEVER >101F Al Hydroxide/Mg Hydroxide (Milk Of Magnmir Liq) 30 ml PO Q12H PRN PRN Reason: Mild Constipation Albuterol (Albuterol Neb (Prn)) 2.5 mg NEB Q2HR NEB PRN PRN Reason: DYSPNEA Albuterol (Duoneb Neb ([facility])) 1 ampul NEB Q4HR NEB [facility] Last Admin: 05/10/18 07:42 Dose: 1 ampul Artificial Tears (Tears Naturale Opth Drops) 1 drop EACH EYE Q8H [facility] Last Admin: 05/10/18 05:34 Dose: 1 drop Bisacodyl (Dulcolax Supp) 10 mg RECTAL DAILY PRN PRN Reason: SEVERE CONSITIPATION Buspirone HCl (Buspar) 15 mg NG/OG BID PRN PRN Reason: SHIVERING Carvedilol (Coreg) 3.125 mg PO BID [facility] Chlorhexidine Gluconate (Peridex 0.12% Oral Kit) 15 ml OROPHARYNG BID@0800, 2000 [facility] Last Admin: 05/10/18 08:27 Dose: 15 ml Chlorhexidine Gluconate (Chlorhexidine 2% Cloth) 3 pack TOPICAL DAILY@0400 [facility] Stop: 05/14/18 03:59 Last Admin: 05/10/18 03:47 Dose: Not Given Chlorhexidine Gluconate (Chlorhexidine 2% Cloth) 3 pack TOPICAL DAILY@0400 PRN PRN Reason: Extra cloth needed Stop: 05/14/18 03:59 Dextrose (D50w Vial) 50 ml IV.PUSH UNSCH PRN PRN Reason: PER HYPOGLYCEMIA PROTOCOL Enalapril Maleate (Vasotec) 2.5 mg PO DAILY [facility] Hydralazine HCl (Apresoline Inj) 10 mg IV.PUSH Q1H PRN PRN Reason: Sbp>140, Dbp>90 Last Admin: 05/10/18 08:00 Dose: 10 mg Sodium Chloride (Ns Inj) 1,000 mls @ 84 mls/hr IV.CONT .[id number] [facility] Last Admin: 05/10/18 09:33 Dose: 84 mls/hr Propofol (Diprivan 1000 Mg/100 Ml Inj) 1,000 mg in 100 mls @ 2.449 mls/hr IV.CONT TITRATE PRN; Protocol PRN Reason: Per Protocol Last Admin: 05/10/18 06:06 Dose: 35 mcg/kg/min, 17.15 mls/hr Midazolam HCl (Versed Inj) 50 mg in 50 mls @ 2 mls/hr IV.CONT TITRATE PRN; Protocol PRN Reason: Per Protocol Last Admin: 05/10/18 05:35 Dose: 4 mg/hr, 4 mls/hr Cisatracurium Besylate 100 mg/ (Sodium Chloride) 250 mls @ 40.41 mls/hr IV.CONT TITRATE PRN; Protocol PRN Reason: Per Protocol Last Admin: 05/10/18 04:12 Dose: 3 mcg/kg/min, 36.74 mls/hr Fentanyl (Fentanyl 10 Mcg/Ml Premix Drip) 2,500 mcg in 250 mls @ 5 mls/hr IV.SIG TITRATE PRN; Protocol PRN Reason: Per Protocol Last Admin: 05/10/18 11:02 Dose: 50 mcg/hr, 5 mls/hr Insulin Human Regular 100 unit (/ Sodium Chloride) 100 mls @ 0.5 mls/hr IV.CONT TITRATE PRN; Protocol PRN Reason: See protocol Last Titration: 05/10/18 10:05 Dose: 1.5 unit/hr, 1.5 mls/hr Norepinephrine Bitartrate 16 (mg/ Sodium Chloride) 250 mls @ 1.87 mls/hr IV.CONT TITRATE PRN; Protocol PRN Reason: See Protocol Last Titration: 05/09/18 14:45 Dose: 0 mcg/min, 0 mls/hr Amiodarone HCl 450 mg/ Sodium (Chloride) 250 mls @ 33.33 mls/hr IV.CONT TITRATE PRN; Protocol PRN Reason: Per Protocol Last Admin: 05/09/18 22:55 Dose: 0.5 mg/min, 16.66 mls/hr Labetalol HCl (Trandate Inj) 10 mg IV.PUSH Q1H PRN PRN Reason: Sbp>140, Dbp>90, Hr>65 Last Admin: 05/10/18 09:17 Dose: 10 mg Lactulose (Lactulose Liq) 30 ml PO DAILY PRN PRN Reason: SEVERE CONSITIPATION Lorazepam (Ativan Inj) 1 mg IV.PUSH Q1H PRN PRN Reason: SEE LABEL COMMENTS Meperidine HCl (Demerol Inj) 25 mg IV.PUSH Q2H PRN PRN Reason: SHIVERING Midazolam HCl (Versed Inj) 2 mg IV.PUSH Q1H PRN PRN Reason: SEE LABEL COMMENTS Miscellaneous Medication () 1 each OROPHARYNG 0000,0400,1200,1600 [facility] Last Admin: 05/10/18 03:48 Dose: 1 each Morphine Sulfate (Morphine Inj) 2 mg IV.PUSH Q2H PRN PRN Reason: PAIN SCALE 6 TO 10 Ondansetron HCl (Zofran Inj) 4 mg IV.PUSH Q6H PRN PRN Reason: NAUSEA OR VOMITING Pantoprazole Sodium (Protonix Inj) 40 mg IV.PUSH Q24H [facility] Last Admin: 05/09/18 12:15 Dose: Not Given Senna/Docusate Sodium (Lizbeth-Colace) 1 tab PO BID [facility] Last Admin: 05/10/18 08:26 Dose: 1 tab Sennosides (Senokot) 17.2 mg PO Q12H PRN PRN Reason: Moderate Constipation Sodium Chloride (Ns Flush) 2 ml IV.FLUSH BID [facility] Last Admin: 05/10/18 08:26 Dose: 2 ml Sodium Chloride (Ns Flush) 2 ml IV.FLUSH PRN PRN PRN Reason: FLUSH AFTER USING IV ACCESS Terbutaline Sulfate (Brethine Inj) 1 mg SQ UNSCH PRN PRN Reason: For Extravasation Terbutaline Sulfate (Brethine Inj) 1 mg SQ UNSCH PRN PRN Reason: For Extravasation Allergies/Adverse Reactions: Allergies Allergy/AdvReac Type Severity Reaction Status Date / Time No Known Allergies Allergy Uncoded 02/17/15 12:05 Review of Systems unobtainable due to endotracheal tube, unobtainable due to mental status Physical Exam Vital signs: Vital Signs 05/09/18 12:15 05/09/18 12:30 05/09/18 12:45 Temperature 91.8 F L 91.9 F L 92.1 F L Pulse Rate 60 60 61 Respiratory Rate 14 14 14 Blood Pressure 97/69 L 99/72 L 94/66 L Pulse Oximetry 100 100 100 05/09/18 13:00 05/09/18 13:15 05/09/18 13:20 Temperature 92.3 F L 92.3 F L Pulse Rate 61 60 54 L Respiratory Rate 14 14 14 Blood Pressure 106/78 109/80 Pulse Oximetry 100 100 05/09/18 13:30 05/09/18 13:45 05/09/18 14:00 Temperature 92.5 F L 92.5 F L 92.5 F L Pulse Rate 59 L 59 L 62 Respiratory Rate 14 14 19 Blood Pressure 111/74 107/78 Pulse Oximetry 100 100 100 05/09/18 14:02 05/09/18 14:15 05/09/18 14:30 Temperature 92.5 F L 92.7 F L 92.8 F L Pulse Rate 65 64 65 Respiratory Rate 14 14 14 Blood Pressure 105/75 107/71 108/76 Pulse Oximetry 100 100 100 05/09/18 14:45 05/09/18 15:00 05/09/18 15:10 Temperature 93.0 F L 93.2 F L Pulse Rate 64 63 62 Respiratory Rate 15 14 14 Blood Pressure 107/73 107/75 Pulse Oximetry 100 100 100 05/09/18 15:15 05/09/18 16:00 05/09/18 17:00 Temperature 93.2 F L 93.4 F L 93.9 F L Pulse Rate 63 68 66 Respiratory Rate 14 15 15 Blood Pressure 107/75 110/75 108/71 Pulse Oximetry 100 100 100 05/09/18 18:00 05/09/18 19:00 05/09/18 19:17 Temperature 93.7 F L Pulse Rate 66 63 62 Respiratory Rate 15 15 Blood Pressure 106/73 Pulse Oximetry 100 100 05/09/18 20:00 05/09/18 21:00 05/09/18 22:00 Temperature 93.2 F L Pulse Rate 63 61 61 Respiratory Rate 15 12 12 Blood Pressure 121/68 122/65 111/57 L Pulse Oximetry 100 100 100 05/09/18 23:00 05/09/18 23:48 05/10/18 00:00 Temperature 93.2 F L Pulse Rate 61 61 62 Respiratory Rate 12 12 12 Blood Pressure 117/60 123/61 Pulse Oximetry 100 100 05/10/18 01:00 05/10/18 02:00 05/10/18 03:00 Temperature Pulse Rate 63 63 70 Respiratory Rate 12 12 12 Blood Pressure Pulse Oximetry 100 100 100 05/10/18 03:12 05/10/18 03:14 05/10/18 04:00 Temperature 94.5 F L Pulse Rate 67 70 Respiratory Rate 12 12 12 Blood Pressure Pulse Oximetry 99 100 05/10/18 05:00 05/10/18 06:00 05/10/18 06:30 Temperature 95.9 F L Pulse Rate 71 74 72 Respiratory Rate 12 12 12 Blood Pressure Pulse Oximetry 100 100 98 05/10/18 07:00 05/10/18 07:43 05/10/18 08:00 Temperature 96.1 F L 96.4 F L Pulse Rate 74 79 Respiratory Rate 12 12 12 Blood Pressure 143/82 H 135/74 Pulse Oximetry 98 98 98 05/10/18 09:00 Temperature Pulse Rate 99 H Respiratory Rate Blood Pressure Pulse Oximetry Intake & Output 05/09/18 05/10/18 05/10/18 18:59 06:59 18:59 Intake Total 2075 / 5 2075 / 5 1100 / 1100 Output Total 1200 / 1200 280 / 280 Balance 875 / 875 1795 / 1795 1100 / 1100 Weight 78 kg Intake: IV 2074 / 2074 2074 / 2074 1100 / 1100 Cordarone Inj 450 MG In D5W Inj 250 / 250 241 ML @ 1 MG/MIN 33.33 mls/hr IV.CONT TITRATE PRN Rx#: [id number] Nimbex Inj 100 MG In NS Inj 240 175 / 175 75 / 75 ML @ 3.3 MCG/KG/MIN 40.41 mls/ hr IV.CONT TITRATE PRN Rx#: [id number] DOPamine 800 MG/500 ML Premix 240 / 240 800 mg In 500 ml @ 3 MCG/KG/MIN 9.185 mls/hr IV.CONT TITRATE PRN Rx#:[id number] Versed Inj 50 mg In 50 ml @ 2 50 / 50 MG/HR 2 mls/hr IV.CONT TITRATE PRN Rx#:[id number] Diprivan 1000 mg/100 ml Inj 1, 200 / 200 200 / 200 000 mg In 100 ml @ 5 MCG/KG/MIN 2.449 mls/hr IV.CONT TITRATE PRN Rx#:[id number] NS Inj 1,000 ML @ 84 mls/hr IV. 1000 / 1000 1000 / 1000 1000 / 1000 CONT .[id number] JIM Rx#:[id number] Alburx 5% Inj 500 ML @ 250 mls/ 500 / 500 hr IV.SIG ONCE ONE Rx#:[id number] Magnesium Sulfate 1 gm/D5W 100 100 / 100 ml Premix 100 ML @ 100 mls/hr IV.SIG ONCE ONE Rx#:[id number] Magnesium Sulfate Inj 1 GM In 100 / 100 NS Inj 98 ML @ 100 mls/hr IV. SIG Q1H [facility] Rx#:[id number] KCl 20 mEq Premix Inj 20 meq In 100 / 100 100 ml @ 50 mls/hr IV.SIG ONCE ONE Rx#:[id number] Potassium Phosphate Inj 30 MMOL 260 / 260 In NS Inj 250 ML @ 43.333 mls/ hr IV.SIG ONCE ONE Rx#:[id number] Output: Urine Amount (Catheter) 550 / 550 280 / 280 Indwelling Temp Sensing 550 / 550 280 / 280 Catheter Gastric Drainage 650 / 650 Pre-Hospital Orogastric Tube 650 / 650 Other: # Bowel Movements 0 0 Narrative: GENERAL: in NAD, SKIN: Warm and dry. HEAD: Atraumatic. Normocephalic. ENT: Intubated NECK: Trachea midline. No JVD. CARDIOVASCULAR: Regular rate and rhythm. RESPIRATORY: Intubated GASTROINTESTINAL: Abdomen soft, non-tender, nondistended. MUSCULOSKELETAL: Extremities without clubbing, cyanosis, or edema. No obvious deformities. NEUROLOGICAL: Intubated sedated on Demadex, propofol, Versed. Comatose nonverbal not following. Pinpoint pupils no corneals no current blink to threat no involuntary movements no drooling extremity PSYCHIATRIC: Intubated - Constitutional no acute distress - Routine HEENT Exam Head: Present: normocephalic - Urinary Catheter Management Indwelling Temp Sensing Catheter Cath placed during this visit: yes Reason for continuing: Other continuation reason Insertion date: 05/08/18 Insertion time: 22:40 Objective Laboratory Results - last 24 hr 05/09/18 05/09/18 05/09/18 13:02 13:58 14:52 WBC RBC Hgb Hct MCV MCH MCHC RDW Plt Count MPV Neut % (Auto) Lymph % (Auto) Bowman % (Auto) Eos % (Auto) Baso % (Auto) Neut # (Auto) Lymph # (Auto) Bowman # (Auto) Eos # (Auto) Baso # (Auto) WBC Differential Differential Comment PT INR APTT Puncture Site Patient Temperature O2 Saturation ABG pH ABG pCO2 ABG pO2 ABG HCO3 ABG O2 Content ABG Base Excess ABG Methemoglobin Hemoglobin Carboxyhemoglobin O2 Delivery Device Vent Setting Inspired O2 Critical Value Sodium Potassium Chloride Carbon Dioxide Anion Gap BUN Creatinine Estimated GFR POC Glucose 197 H 209 H 213 H Random Glucose Lactic Acid Calcium Phosphorus Magnesium Total Bilirubin AST ALT Alkaline Phosphatase Total Creatine Kinase CK-MB (CK-2) CK-MB (CK-2) % Troponin I Total Protein Albumin Triglycerides Cholesterol LDL Cholesterol, Calc HDL Cholesterol Cholesterol/HDL Ratio TSH Hepatitis A IgM Ab Hep Bs Antigen Hep B Core IgM Ab Hep C IgG Ab 05/09/18 05/09/18 05/09/18 14:58 14:58 14:58 WBC RBC Hgb Hct MCV MCH MCHC RDW Plt Count MPV Neut % (Auto) Lymph % (Auto) Bowman % (Auto) Eos % (Auto) Baso % (Auto) Neut # (Auto) Lymph # (Auto) Bowman # (Auto) Eos # (Auto) Baso # (Auto) WBC Differential Differential Comment PT INR APTT Puncture Site Patient Temperature O2 Saturation ABG pH ABG pCO2 ABG pO2 ABG HCO3 ABG O2 Content ABG Base Excess ABG Methemoglobin Hemoglobin Carboxyhemoglobin O2 Delivery Device Vent Setting Inspired O2 Critical Value Sodium 140 Potassium 3.6 D Chloride 107 Carbon Dioxide 22.6 Anion Gap 10 BUN 11 Creatinine 0.71 Estimated GFR Greater than 89 POC Glucose Random Glucose 220 H Lactic Acid Calcium 8.3 L Phosphorus Magnesium 2.2 Total Bilirubin AST ALT Alkaline Phosphatase Total Creatine Kinase 1274 H CK-MB (CK-2) 269.5 H CK-MB (CK-2) % 21.2 H* Troponin I 10.90 H* Cancelled Total Protein Albumin Triglycerides 89 Cancelled Cholesterol 129 Cancelled LDL Cholesterol, Calc 61 Cancelled HDL Cholesterol 50.7 Cancelled Cholesterol/HDL Ratio 2.54 Cancelled TSH Hepatitis A IgM Ab Nonreactive Hep Bs Antigen Nonreactive Hep B Core IgM Ab Nonreactive Hep C IgG Ab Nonreactive 05/09/18 05/09/18 05/09/18 16:00 16:59 17:45 WBC RBC Hgb Hct MCV MCH MCHC RDW Plt Count MPV Neut % (Auto) Lymph % (Auto) Bowman % (Auto) Eos % (Auto) Baso % (Auto) Neut # (Auto) Lymph # (Auto) Bowman # (Auto) Eos # (Auto) Baso # (Auto) WBC Differential Differential Comment PT INR APTT Puncture Site Patient Temperature O2 Saturation ABG pH ABG pCO2 ABG pO2 ABG HCO3 ABG O2 Content ABG Base Excess ABG Methemoglobin Hemoglobin Carboxyhemoglobin O2 Delivery Device Vent Setting Inspired O2 Critical Value Sodium Potassium Chloride Carbon Dioxide Anion Gap BUN Creatinine Estimated GFR POC Glucose 201 H 163 H Random Glucose Lactic Acid 2.4 H Calcium Phosphorus Magnesium Total Bilirubin AST ALT Alkaline Phosphatase Total Creatine Kinase CK-MB (CK-2) CK-MB (CK-2) % Troponin I Total Protein Albumin Triglycerides Cholesterol LDL Cholesterol, Calc HDL Cholesterol Cholesterol/HDL Ratio TSH Hepatitis A IgM Ab Hep Bs Antigen Hep B Core IgM Ab Hep C IgG Ab 05/09/18 05/09/18 05/09/18 18:04 18:53 19:57 WBC RBC Hgb Hct MCV MCH MCHC RDW Plt Count MPV Neut % (Auto) Lymph % (Auto) Bowman % (Auto) Eos % (Auto) Baso % (Auto) Neut # (Auto) Lymph # (Auto) Bowman # (Auto) Eos # (Auto) Baso # (Auto) WBC Differential Differential Comment PT INR APTT Puncture Site Patient Temperature O2 Saturation ABG pH ABG pCO2 ABG pO2 ABG HCO3 ABG O2 Content ABG Base Excess ABG Methemoglobin Hemoglobin Carboxyhemoglobin O2 Delivery Device Vent Setting Inspired O2 Critical Value Sodium Potassium Chloride Carbon Dioxide Anion Gap BUN Creatinine Estimated GFR POC Glucose 180 H 162 H 151 H Random Glucose Lactic Acid Calcium Phosphorus Magnesium Total Bilirubin AST ALT Alkaline Phosphatase Total Creatine Kinase CK-MB (CK-2) CK-MB (CK-2) % Troponin I Total Protein Albumin Triglycerides Cholesterol LDL Cholesterol, Calc HDL Cholesterol Cholesterol/HDL Ratio TSH Hepatitis A IgM Ab Hep Bs Antigen Hep B Core IgM Ab Hep C IgG Ab 05/09/18 05/09/18 05/09/18 19:59 20:00 20:57 WBC RBC Hgb Hct MCV MCH MCHC RDW Plt Count MPV Neut % (Auto) Lymph % (Auto) Bowman % (Auto) Eos % (Auto) Baso % (Auto) Neut # (Auto) Lymph # (Auto) Bowman # (Auto) Eos # (Auto) Baso # (Auto) WBC Differential Differential Comment PT INR APTT Puncture Site Art line Patient Temperature 93.2 O2 Saturation 97 ABG pH 7.49 H ABG pCO2 24 L* ABG pO2 140 H ABG HCO3 19 L ABG O2 Content 19.9 ABG Base Excess -4.3 L ABG Methemoglobin 1.3 Hemoglobin 14.4 Carboxyhemoglobin 0.5 O2 Delivery Device Ventilator Vent Setting Prvc/ac Inspired O2 40 Critical Value Yes Sodium 141 Potassium 3.3 L Chloride 109 H Carbon Dioxide 22.2 Anion Gap 10 BUN 11 Creatinine 0.68 Estimated GFR Greater than 89 POC Glucose 150 H Random Glucose 179 H Lactic Acid Calcium 8.3 L Phosphorus 2.1 L Magnesium 2.0 Total Bilirubin AST ALT Alkaline Phosphatase Total Creatine Kinase CK-MB (CK-2) CK-MB (CK-2) % Troponin I Total Protein Albumin Triglycerides Cholesterol LDL Cholesterol, Calc HDL Cholesterol Cholesterol/HDL Ratio TSH Hepatitis A IgM Ab Hep Bs Antigen Hep B Core IgM Ab Hep C IgG Ab 05/09/18 05/09/18 05/10/18 22:01 23:14 00:14 WBC RBC Hgb Hct MCV MCH MCHC RDW Plt Count MPV Neut % (Auto) Lymph % (Auto) Bowman % (Auto) Eos % (Auto) Baso % (Auto) Neut # (Auto) Lymph # (Auto) Bowman # (Auto) Eos # (Auto) Baso # (Auto) WBC Differential Differential Comment PT INR APTT Puncture Site Patient Temperature O2 Saturation ABG pH ABG pCO2 ABG pO2 ABG HCO3 ABG O2 Content ABG Base Excess ABG Methemoglobin Hemoglobin Carboxyhemoglobin O2 Delivery Device Vent Setting Inspired O2 Critical Value Sodium Potassium Chloride Carbon Dioxide Anion Gap BUN Creatinine Estimated GFR POC Glucose 142 H 137 H 152 H Random Glucose Lactic Acid Calcium Phosphorus Magnesium Total Bilirubin AST ALT Alkaline Phosphatase Total Creatine Kinase CK-MB (CK-2) CK-MB (CK-2) % Troponin I Total Protein Albumin Triglycerides Cholesterol LDL Cholesterol, Calc HDL Cholesterol Cholesterol/HDL Ratio TSH Hepatitis A IgM Ab Hep Bs Antigen Hep B Core IgM Ab Hep C IgG Ab 05/10/18 05/10/18 05/10/18 00:30 01:01 02:00 WBC RBC Hgb Hct MCV MCH MCHC RDW Plt Count MPV Neut % (Auto) Lymph % (Auto) Bowman % (Auto) Eos % (Auto) Baso % (Auto) Neut # (Auto) Lymph # (Auto) Bowman # (Auto) Eos # (Auto) Baso # (Auto) WBC Differential Differential Comment PT INR APTT Puncture Site Patient Temperature O2 Saturation ABG pH ABG pCO2 ABG pO2 ABG HCO3 ABG O2 Content ABG Base Excess ABG Methemoglobin Hemoglobin Carboxyhemoglobin O2 Delivery Device Vent Setting Inspired O2 Critical Value Sodium 141 141 Potassium 3.2 L 3.2 L Chloride 109 H 110 H Carbon Dioxide 22.1 22.4 Anion Gap 10 9 BUN 11 11 Creatinine 0.59 L 0.54 L Estimated GFR Greater than 89 Greater than 89 POC Glucose 134 H Random Glucose 164 H 151 H Lactic Acid Calcium 8.2 L 7.8 L Phosphorus Magnesium 2.0 1.9 Total Bilirubin AST ALT Alkaline Phosphatase Total Creatine Kinase CK-MB (CK-2) CK-MB (CK-2) % Troponin I 28.20 H* Total Protein Albumin Triglycerides Cholesterol LDL Cholesterol, Calc HDL Cholesterol Cholesterol/HDL Ratio TSH 0.285 L Hepatitis A IgM Ab Hep Bs Antigen Hep B Core IgM Ab Hep C IgG Ab 05/10/18 05/10/18 05/10/18 02:03 03:05 04:04 WBC RBC Hgb Hct MCV MCH MCHC RDW Plt Count MPV Neut % (Auto) Lymph % (Auto) Bowman % (Auto) Eos % (Auto) Baso % (Auto) Neut # (Auto) Lymph # (Auto) Bowman # (Auto) Eos # (Auto) Baso # (Auto) WBC Differential Differential Comment PT INR APTT Puncture Site Patient Temperature O2 Saturation ABG pH ABG pCO2 ABG pO2 ABG HCO3 ABG O2 Content ABG Base Excess ABG Methemoglobin Hemoglobin Carboxyhemoglobin O2 Delivery Device Vent Setting Inspired O2 Critical Value Sodium Potassium Chloride Carbon Dioxide Anion Gap BUN Creatinine Estimated GFR POC Glucose 138 H 130 H 123 H Random Glucose Lactic Acid Calcium Phosphorus Magnesium Total Bilirubin AST ALT Alkaline Phosphatase Total Creatine Kinase CK-MB (CK-2) CK-MB (CK-2) % Troponin I Total Protein Albumin Triglycerides Cholesterol LDL Cholesterol, Calc HDL Cholesterol Cholesterol/HDL Ratio TSH Hepatitis A IgM Ab Hep Bs Antigen Hep B Core IgM Ab Hep C IgG Ab 05/10/18 05/10/18 05/10/18 05:00 05:00 05:00 WBC 17.2 H RBC 4.99 Hgb 14.3 Hct 42.0 MCV 84.2 MCH 28.7 MCHC 34.0 RDW 14.2 Plt Count 216 MPV 7.7 Neut % (Auto) 93.8 H Lymph % (Auto) 2.8 L Bowman % (Auto) 3.2 Eos % (Auto) 0.1 Baso % (Auto) 0.1 Neut # (Auto) 16.1 H Lymph # (Auto) 0.5 L Bowman # (Auto) 0.6 Eos # (Auto) 0.0 Baso # (Auto) 0.0 WBC Differential . Differential Comment Auto diff final PT 11.4 INR 1.1 APTT 31.3 Puncture Site Patient Temperature O2 Saturation ABG pH ABG pCO2 ABG pO2 ABG HCO3 ABG O2 Content ABG Base Excess ABG Methemoglobin Hemoglobin Carboxyhemoglobin O2 Delivery Device Vent Setting Inspired O2 Critical Value Sodium 142 Potassium 3.1 L Chloride 109 H Carbon Dioxide 21.3 Anion Gap 12 BUN 11 Creatinine 0.56 L Estimated GFR Greater than 89 POC Glucose Random Glucose 138 H Lactic Acid Calcium 8.2 L Phosphorus 3.0 Magnesium 1.9 Total Bilirubin 0.6 AST 228 H ALT 96 H Alkaline Phosphatase 63 Total Creatine Kinase 1376 H CK-MB (CK-2) 368.5 H CK-MB (CK-2) % 26.8 H* Troponin I 32.40 H* Total Protein 6.1 L D Albumin 3.6 Triglycerides Cholesterol LDL Cholesterol, Calc HDL Cholesterol Cholesterol/HDL Ratio TSH Hepatitis A IgM Ab Hep Bs Antigen Hep B Core IgM Ab Hep C IgG Ab 05/10/18 05/10/18 05/10/18 05:05 06:01 06:46 WBC RBC Hgb Hct MCV MCH MCHC RDW Plt Count MPV Neut % (Auto) Lymph % (Auto) Bowman % (Auto) Eos % (Auto) Baso % (Auto) Neut # (Auto) Lymph # (Auto) Bowman # (Auto) Eos # (Auto) Baso # (Auto) WBC Differential Differential Comment PT INR APTT Puncture Site Art line Patient Temperature 98.6 O2 Saturation 96 ABG pH 7.37 L ABG pCO2 39 ABG pO2 96 ABG HCO3 22 ABG O2 Content 19.7 ABG Base Excess -2.8 L ABG Methemoglobin 1.3 Hemoglobin 14.6 Carboxyhemoglobin 0.5 O2 Delivery Device Ventilator Vent Setting Prvc/ac Inspired O2 40 Critical Value No Sodium Potassium Chloride Carbon Dioxide Anion Gap BUN Creatinine Estimated GFR POC Glucose 115 H 116 H Random Glucose Lactic Acid Calcium Phosphorus Magnesium Total Bilirubin AST ALT Alkaline Phosphatase Total Creatine Kinase CK-MB (CK-2) CK-MB (CK-2) % Troponin I Total Protein Albumin Triglycerides Cholesterol LDL Cholesterol, Calc HDL Cholesterol Cholesterol/HDL Ratio TSH Hepatitis A IgM Ab Hep Bs Antigen Hep B Core IgM Ab Hep C IgG Ab 05/10/18 05/10/18 05/10/18 06:53 08:02 09:00 WBC RBC Hgb Hct MCV MCH MCHC RDW Plt Count MPV Neut % (Auto) Lymph % (Auto) Bowman % (Auto) Eos % (Auto) Baso % (Auto) Neut # (Auto) Lymph # (Auto) Bowman # (Auto) Eos # (Auto) Baso # (Auto) WBC Differential Differential Comment PT INR APTT Puncture Site Patient Temperature O2 Saturation ABG pH ABG pCO2 ABG pO2 ABG HCO3 ABG O2 Content ABG Base Excess ABG Methemoglobin Hemoglobin Carboxyhemoglobin O2 Delivery Device Vent Setting Inspired O2 Critical Value Sodium Potassium Chloride Carbon Dioxide Anion Gap BUN Creatinine Estimated GFR POC Glucose 125 H 123 H 122 H Random Glucose Lactic Acid Calcium Phosphorus Magnesium Total Bilirubin AST ALT Alkaline Phosphatase Total Creatine Kinase CK-MB (CK-2) CK-MB (CK-2) % Troponin I Total Protein Albumin Triglycerides Cholesterol LDL Cholesterol, Calc HDL Cholesterol Cholesterol/HDL Ratio TSH Hepatitis A IgM Ab Hep Bs Antigen Hep B Core IgM Ab Hep C IgG Ab 05/10/18 05/10/18 10:09 11:04 WBC RBC Hgb Hct MCV MCH MCHC RDW Plt Count MPV Neut % (Auto) Lymph % (Auto) Bowman % (Auto) Eos % (Auto) Baso % (Auto) Neut # (Auto) Lymph # (Auto) Bowman # (Auto) Eos # (Auto) Baso # (Auto) WBC Differential Differential Comment PT INR APTT Puncture Site Patient Temperature O2 Saturation ABG pH ABG pCO2 ABG pO2 ABG HCO3 ABG O2 Content ABG Base Excess ABG Methemoglobin Hemoglobin Carboxyhemoglobin O2 Delivery Device Vent Setting Inspired O2 Critical Value Sodium Potassium Chloride Carbon Dioxide Anion Gap BUN Creatinine Estimated GFR POC Glucose 156 H 140 H Random Glucose Lactic Acid Calcium Phosphorus Magnesium Total Bilirubin AST ALT Alkaline Phosphatase Total Creatine Kinase CK-MB (CK-2) CK-MB (CK-2) % Troponin I Total Protein Albumin Triglycerides Cholesterol LDL Cholesterol, Calc HDL Cholesterol Cholesterol/HDL Ratio TSH Hepatitis A IgM Ab Hep Bs Antigen Hep B Core IgM Ab Hep C IgG Ab Microbiology 05/08/18 22:30 Urine Culture - Final Catheterized Urine No growth in 48 hours 05/09/18 16:00 Aerobic Blood Culture - Preliminary Blood - Line No growth in 1 day Anaerobic Blood Culture - Preliminary No growth in 1 day 05/08/18 21:38 Aerobic Blood Culture - Preliminary Blood - Peripheral No growth in 2 days Anaerobic Blood Culture - Preliminary No growth in 2 days 05/08/18 21:33 Aerobic Blood Culture - Preliminary Blood - Peripheral No growth in 2 days Anaerobic Blood Culture - Preliminary No growth in 2 days Review/Management - Diagnosis (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 fib arrest underlying code cool CT brain scan reviewed which demonstrated possible tiny hemorrhage. 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 Does not appear to be clinically relevant at the present Recommendation Possible rewarming today On sedatives and paralytic agents. Limited exam When medically stabilized, will obtain MRI MRA brain Follow exam Discussed with the nursing
[2018-05-10] MEDS: Pantoprazole Inj 40 MG Vial IV.PUSH SCH (12:53)
[2018-05-10 13:02] LABS: Hemoglobin A1c 6.5 % (4.3-6.0)
--- NOTE | 2018-05-10 14:52 | MR ---
EXAM DATE: 05/10/2018 2:46 PM EST AGE/SEX: 63 years / Male INDICATIONS: CVA. CLINICAL DATA: This is the patient's initial encounter. Patient reports that signs and symptoms have been present for 1 day and indicates a pain score of 0/10. MEDICAL/SURGICAL HISTORY: None. . ORIF ankle. COMPARISON: [facility] [place], CT HEAD W/O CONTRAST, 05/08/2018. . TECHNIQUE: Multiplanar, multisequence examination of the brain was performed without contrast. FINDINGS: Cerebrum: The ventricles are normal for age. No evidence of midline shift, mass lesion, hemorrhage or acute infarction. No extraaxial fluid collections are seen. The pituitary gland and suprasellar cistern are normal in configuration. White Matter: No significant signal abnormalities are seen in the white matter. Posterior Fossa: The cerebellum and brainstem are intact. The 4th ventricle is midline. The cerebel lopontine angle is unremarkable. The cerebellar tonsils are normal in position. Diffusion Imaging: No focal areas of restricted diffusion are seen. No evidence of acute infarction . Extracranial: The visualized portions of the orbits are unremarkable. Mucosal thickening is noted in volving left maxillary sinus, bilateral anterior ethmoid air cells and bilateral sphenoid sinuses. So me fluid is noted within mastoid air cells bilaterally. CONCLUSION: 1. No evidence of acute hemorrhage within the right araseli. 2. No acute infarct, acute hemorrhage, midline shift or extra-axial fluid collection. 3. Mucosal thickening involving the left maxillary sinus, bilateral anterior ethmoid air cells and b ilateral sphenoid sinuses. 4. Some fluid within the mastoid air cells bilaterally. Electronically signed by: Hunter Moreno MD 05/10/2018 2:51 PM EST
--- NOTE | 2018-05-10 15:16 | MR ---
EXAM DATE: 05/10/2018 2:46 PM EST AGE/SEX: 63 years / Male INDICATIONS: CVA. CLINICAL DATA: This is the patient's initial encounter. Patient reports that signs and symptoms have been present for 1 day and indicates a pain score of 0/10. MEDICAL/SURGICAL HISTORY: None. . ORIF ankle. COMPARISON: [facility] [place], MR HEAD W/O CONTRAST, 05/10/2018. [facility] [place], CT HEAD W/O CONTRAST, 05/08/2018. . TECHNIQUE: 3D [id number] MRA was performed. Source images, multiplanar STS MIP, and 3D volum e MIP reconstructions were reviewed. FINDINGS: There is excellent visualization of the major intracranial arteries out to the second-order branch ve ssels. There is no evidence for aneurysm, vessel truncation or stenosis, and no evidence for vascula r malformation. Patent bilateral posterior communicating arteries are noted. CONCLUSION: 1. Negative MRA Cow ([place] non contrast. Electronically signed by: Hunter Moreno MD 05/10/2018 3:15 PM EST
[2018-05-10] MEDS: Amiodarone Inj 450 MG in Sodium Chlor 0.9% Inj 241 ML IV.CONT PRN (16:03)
--- NOTE | 2018-05-10 16:22 | P.PNCC ---
Subjective Subjective Remarks/Hospital Course: 63-year-old male presents to emergency department intubated after VF/VT arrest. He had to be defibrillated twice in the field, afterwards clear STEMI criteria was called by [facility]. Apparently heard a collapse in the next room found the patient unresponsive called 9 1. Apparently total downtime was about 10 minutes and had a very quick Rask. Blood pressure was little low and dopamine drip was started in the field. Patient also had amiodarone started in the field. Initially the STEMI alert was called brain demonstrated punctate hyperdensity characteristic of hemorrhage in the right mid araseli in the STEMI alert was canceled. The patient has been admitted to ICU for hypothermia protocol treatment post cardiac arrest. 05/09: Discussed with at bedside. Currently on target temperature monitoring. EEG performed. Replacing potassium and phosphorus this a.m. Subjective: 05/10: Currently temperature is a 97. Has been rewarmed from target temperature monitoring. EEG revealed no epileptic activity. Replace potassium currently. MRI brain revealed no signs of hemorrhage. Will start on heparin drip [place] protocol 900 units an hour and provide aspirin. Carvedilol started by cardiology during the a.m. Objective Vital Signs / I&O: Vital Signs 05/09/18 17:00 05/09/18 18:00 05/09/18 19:00 Temperature 93.9 F L 93.7 F L Pulse Rate 66 66 63 Respiratory Rate 15 15 Blood Pressure 108/71 106/73 Pulse Oximetry 100 100 05/09/18 19:17 05/09/18 20:00 05/09/18 21:00 Temperature 93.2 F L Pulse Rate 62 63 61 Respiratory Rate 15 15 12 Blood Pressure 121/68 122/65 Pulse Oximetry 100 100 100 05/09/18 22:00 05/09/18 23:00 05/09/18 23:48 Temperature Pulse Rate 61 61 61 Respiratory Rate 12 12 12 Blood Pressure 111/57 L 117/60 Pulse Oximetry 100 100 05/10/18 00:00 05/10/18 01:00 05/10/18 02:00 Temperature 93.2 F L Pulse Rate 62 63 63 Respiratory Rate 12 12 12 Blood Pressure 123/61 Pulse Oximetry 100 100 100 05/10/18 03:00 05/10/18 03:12 05/10/18 03:14 Temperature Pulse Rate 70 67 Respiratory Rate 12 12 12 Blood Pressure Pulse Oximetry 100 99 05/10/18 04:00 05/10/18 05:00 05/10/18 06:00 Temperature 94.5 F L Pulse Rate 70 71 74 Respiratory Rate 12 12 12 Blood Pressure Pulse Oximetry 100 100 100 05/10/18 06:30 05/10/18 07:00 05/10/18 07:43 Temperature 95.9 F L 96.1 F L Pulse Rate 72 74 Respiratory Rate 12 12 12 Blood Pressure 143/82 H Pulse Oximetry 98 98 98 05/10/18 08:00 05/10/18 09:00 05/10/18 11:00 Temperature 96.4 F L Pulse Rate 79 99 H 70 Respiratory Rate 12 18 Blood Pressure 135/74 Pulse Oximetry 98 05/10/18 12:19 05/10/18 15:07 Temperature Pulse Rate Respiratory Rate 18 Blood Pressure Pulse Oximetry 98 100 Intake & Output 05/09/18 05/10/18 05/10/18 18:59 06:59 18:59 Intake Total 2075 / 2075 207 / 207 1100 / 1100 Output Total 1200 / 1200 280 / 280 Balance 875 / 875 1795 / 1795 1100 / 1100 Weight 78 kg Intake: IV 2074 / 5 2074 / 2074 1100 / 1100 Cordarone Inj 450 MG In D5W Inj 250 / 250 241 ML @ 1 MG/MIN 33.33 mls/hr IV.CONT TITRATE PRN Rx#: [id number] Nimbex Inj 100 MG In NS Inj 240 175 / 175 75 / 75 ML @ 3.3 MCG/KG/MIN 40.41 mls/ hr IV.CONT TITRATE PRN Rx#: [id number] DOPamine 800 MG/500 ML Premix 240 / 240 800 mg In 500 ml @ 3 MCG/KG/MIN 9.185 mls/hr IV.CONT TITRATE PRN Rx#:[id number] Versed Inj 50 mg In 50 ml @ 2 50 / 50 MG/HR 2 mls/hr IV.CONT TITRATE PRN Rx#:[id number] Diprivan 1000 mg/100 ml Inj 1, 200 / 200 200 / 200 000 mg In 100 ml @ 5 MCG/KG/MIN 2.449 mls/hr IV.CONT TITRATE PRN Rx#:[id number] NS Inj 1,000 ML @ 84 mls/hr IV. 1000 / 1000 1000 / 1000 1000 / 1000 CONT .[id number] [facility] Rx#:[id number] Alburx 5% Inj 500 ML @ 250 mls/ 500 / 500 hr IV.SIG ONCE ONE Rx#:[id number] Magnesium Sulfate 1 gm/D5W 100 100 / 100 ml Premix 100 ML @ 100 mls/hr IV.SIG ONCE ONE Rx#:[id number] Magnesium Sulfate Inj 1 GM In 100 / 100 NS Inj 98 ML @ 100 mls/hr IV. SIG Q1H [facility] Rx#:[id number] KCl 20 mEq Premix Inj 20 meq In 100 / 100 100 ml @ 50 mls/hr IV.SIG ONCE ONE Rx#:[id number] Potassium Phosphate Inj 30 MMOL 260 / 260 In NS Inj 250 ML @ 43.333 mls/ hr IV.SIG ONCE ONE Rx#:[id number] Output: Urine Amount (Catheter) 550 / 550 280 / 280 Indwelling Temp Sensing 550 / 550 280 / 280 Catheter Gastric Drainage 650 / 650 Pre-Hospital Orogastric Tube 650 / 650 Other: # Bowel Movements 0 0 Result Diagrams: 05/10/18 05:00 05/10/18 05:00 Other Results: Microbiology 05/08/18 22:30 Catheterized Urine Urine Culture - Final No growth in 48 hours 05/09/18 16:00 Blood - Line Aerobic Blood Culture - Preliminary No growth in 1 day 05/09/18 16:00 Blood - Line Anaerobic Blood Culture - Preliminary No growth in 1 day 05/08/18 21:38 Blood - Peripheral Aerobic Blood Culture - Preliminary No growth in 2 days 05/08/18 21:38 Blood - Peripheral Anaerobic Blood Culture - Preliminary No growth in 2 days 05/08/18 21:33 Blood - Peripheral Aerobic Blood Culture - Preliminary No growth in 2 days 05/08/18 21:33 Blood - Peripheral Anaerobic Blood Culture - Preliminary No growth in 2 days Imaging: Chest X-Ray 05/08/18 20:43 CONCLUSION: 1. ET tube in good position. 2. Gastric tube side-port is in the lower chest and the tube needs to be advanced at least [address] 05/08/18 20:43 CONCLUSION: 1. Punctate hyperdensity characteristic of hemorrhage in the right mid araseli. 2. No acute findings in the supratentorial brain. . Cervical Spine CT 05/08/18 20:44 CONCLUSION: 1. Moderate degenerative changes at C6-7. 2. Otherwise negative exam. Head MRI 05/10/18 00:00 CONCLUSION: 1. No evidence of acute hemorrhage within the right araseli. 2. No acute infarct, acute hemorrhage, midline shift or extra-axial fluid collection. 3. Mucosal thickening involving the left maxillary sinus, bilateral anterior ethmoid air cells and bilateral sphenoid sinuses. 4. Some fluid within the mastoid air cells bilaterally. Chest X-Ray 05/10/18 06:00 CONCLUSION: Infiltrating the medial right lower lobe or right middle lobe. Infiltrate is increased from the previous study Head MRA 05/10/18 06:52 CONCLUSION: 1. Negative MRA [place] ([place]) non contrast. Objective Remarks: GENERAL: 63-year-old male currently orotracheally intubated SKIN: cool and dry. HEAD: Atraumatic. Normocephalic. EYES: Pupils equal and round and minimally reactive bilaterally. No scleral icterus. No injection or drainage. ENT: No nasal bleeding or discharge. Mucous membranes pink and moist. NECK: Trachea midline. No JVD. CARDIOVASCULAR: RRR S1, S2. No S4. RESPIRATORY: No accessory muscle use. Clear to auscultation. Breath sounds equal bilaterally. GASTROINTESTINAL: Abdomen soft, non-tender, nondistended. Hepatic and splenic margins not palpable. MUSCULOSKELETAL: Extremities without clubbing, cyanosis, or edema. No obvious deformities. NEUROLOGICAL: Currently on cisatracurium drip. Assessment and Plan - Assessment and Plan Plan: Neuro/Psych: Rule out anoxic Original CT brain on admission revealed possible 3 mm mid right araseli hemorrhage. Currently midazolam drip at 6 mg an hour and fentanyl drip at 250 mcg an hour for sedation/analgesia while intubated. And propofol drips Daily sedation vacation Goal of RASS -2 Rewarming in a.m. 24 hours post initiation Neurology/Dr. Connor following. EEG completed 05/09 with no epileptic activity. MRI brain revealed left maxillary, bilateral ethmoid and sphenoid sinusitis. MRA brain revealed normal examination. CV Out of hospital cardiac arrest/V. 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 Haile. Discussed today. Okay for carvedilol 3.125 mg twice daily, start aspirin and heparin drip since MRI brain revealed no hemorrhage Originally not candidate for cardiac catheterization due to pontine hemorrhage right mid araseli. This is been changed with MRI/A revealing Troponin elevated 2.86 this a.m. currently elevated at 32. Follow until downward trend 2D echocardiogram revealed EF 30-35%. Ruptured chordae tendon possible involving mitral valve. Continue targeted temperature monitoring with a goal 36 C. Resp: Acute respiratory failurelikely aspiration with right lower lobe infiltrate and altered mental status PRVC ventilation Ventilator bundle Head of bed at 30 degrees Albuterol/ipratropium aerosols every 4 hours with albuterol aerosols every 2 hours as needed dyspnea ABG/chest x-ray in a.m. 05/11 GI: N.p.o. status NG tube to low inner wall suction Pantoprazole for GI prophylaxis Docusate serum/senna 1 tablet twice daily for bowel regimen : Orellana catheter placed for accurate I's and O's in a critical patient currently in a paralytic Endo: Acute hyperglycemia Low TSH Currently in insulin drip at 1 units/h to maintain euglycemia TSH was 0.285. Check free T4/total T3 HEME: Leukocytosis Monitor CBC daily. Follow trends. Renal Creatinine currently within normal limits Acute I's and O's Heme monitor urine output: ID: Monitor for signs and symptomatology infection Patient with aspiration. We will start on piperacillin/tazobactam. FEN: Hypopotassemia Replace electrolytes as clinically indicated MSK: PT evaluate and treat Access -Utilize right femoral Quatro catheter day #3. Prophylaxis - -GI pantoprazole - -DVT -SCD/heparin drip 35 minutes critical care time. Updated at bedside.
[2018-05-10 16:36] LABS: Activated Partial Thrombo Time 32.3 sec (23.4-31.7); INR 1.1 Ratio; Prothrombin Time 11.6 sec (9.8-11.6)
[2018-05-10 16:54] LABS: Anion Gap 10 meq/L (5-15); Blood Urea Nitrogen 11 mg/dL (7-18); Carbon Dioxide 21.2 meq/L (21.0-32.0); Chloride 111 meq/L (98-107); Glomerular Filtration Rate Greater Than 89 mL/min (>89); Glucose,Random 155 mg/dL (74-106); Magnesium 2.2 mg/dL (1.5-2.5); Phosphorus 1.9 mg/dL (2.5-4.9); Potassium 4.2 meq/L (3.5-5.1); Sodium 142 meq/L (136-145)
[2018-05-10] MEDS: Piperacil/Tazo 4.5 GM Premix 4.5 GM/100 ML BAG IV.SIG SCH ×2 (17:00→22:08)
[2018-05-10] MEDS: Heparin Drip 25,000 UNIT/250 ML BAG IV.CONT PRN (17:13)
[2018-05-10 17:19] LABS: Free T4 (Free Thyroxine) 1.08 ng/dL (0.76-1.46)
[2018-05-10] MEDS: Midazolam 100 MG/100 ML Inj 100 MG/100 ML BAG IV.CONT PRN (18:58)
[2018-05-10] MEDS ORDERED: Sodium Glycerophosphate Inj 30 MMOL in Sodium Chlor 0.9% Inj 250 ML IV.SIG ONE (20:00)
[2018-05-11] MEDS: Oral Hygiene Kit OROPHARYNG SCH ×4 (00:13→16:02)
--- NOTE | 2018-05-11 03:51 | XR ---
EXAM DATE: 05/11/2018 3:43 AM EST AGE/SEX: 63 years / Male INDICATIONS: Shortness of breath, possible pulmonary disease. CLINICAL DATA: This is the patient's subsequent encounter. Patient reports that signs and symptoms h ave been present for 4 - 6 days and indicates a pain score of Nonresponsive. MEDICAL/SURGICAL HISTORY: Non-responsive. Non-responsive. COMPARISON: C, CHEST 1V SINGLE AP, 05/10/2018. . FINDINGS: Single view the chest some shows the endotracheal tube, nasogastric tube are both in excellent positi on. There are bilateral pleural effusions right greater than left. There is no visible pneumothorax. Both clavicles are intact. CONCLUSION: Bilateral pleural effusions right greater than left. ET tube in good position. Electronically signed by: Luis Enrique Pham MD 05/11/2018 3:49 AM EST
[2018-05-11 05:21] LABS: Baso % (Auto) 0.1 % (0.0-2.0); Eos # (Auto) 0.1 th/mm3 (0.0-0.4); Eos % (Auto) 0.5 % (0.0-4.0); Hematocrit 40.7 % (39.0-51.0); Hemoglobin 13.4 gm/dL (13.0-17.0); Lymph # (Auto) 0.9 th/mm3 (1.0-4.8); Lymph % (Auto) 6.5 % (9.0-44.0); Mean Corpuscular Hemoglobin 28.3 pg (27.0-34.0); Mean Corpuscular Volume 85.8 fL (80.0-100.0); Mean Platelet Volume 8.1 fL (7.0-11.0); Mono # (Auto) 0.5 th/mm3 (0.0-0.9); Mono % (Auto) 3.8 % (0.0-8.0); Neut # (Auto) 12.6 th/mm3 (1.8-7.7); Neut % (Auto) 89.1 % (16.0-70.0); Platelet Count 180 th/mm3 (150-450); Red Blood Count 4.75 mil/mm3 (4.50-5.90); White Blood Count 14.2 th/mm3 (4.0-11.0)
[2018-05-11] MEDS: Chlorhexidine Gluconate 2% 1 Pack (2 Cloths) TOPICAL SCH (05:41)
[2018-05-11] MEDS: Piperacil/Tazo 4.5 GM Premix 4.5 GM/100 ML BAG IV.SIG SCH ×4 (05:41→23:49)
[2018-05-11] MEDS: Artificial Tears Opth Drops 15 ML Bottle EACH EYE SCH ×3 (05:41→21:02)
[2018-05-11] MEDS: Propofol 1000 mg/100 ml Inj 1,000 MG/100 ML BOTTLE IV.CONT PRN ×3 (05:42→23:48)
[2018-05-11] MEDS: fentaNYL 10 mcg/mL Premix Drip 2,500 MCG/250 ML BAG IV.SIG PRN (05:42)
[2018-05-11 05:53] LABS: Alanine Aminotransferase 69 U/L (12-78); Albumin 2.5 g/dL (3.4-5.0); Alkaline Phosphatase 55 U/L (45-117); Anion Gap 6 meq/L (5-15); Aspartate Aminotransferase 125 U/L (15-37); Blood Urea Nitrogen 11 mg/dL (7-18); Calcium 7.7 mg/dL (8.5-10.1); Carbon Dioxide 26.1 meq/L (21.0-32.0); Chloride 113 meq/L (98-107); Creatine Kinase 582 U/L (39-308); Glomerular Filtration Rate Greater Than 89 mL/min (>89); Glucose,Random 144 mg/dL (74-106); Magnesium 2.1 mg/dL (1.5-2.5); Phosphorus 1.9 mg/dL (2.5-4.9); Potassium 3.4 meq/L (3.5-5.1); Sodium 145 meq/L (136-145); Total Protein 5.2 g/dL (6.4-8.2)
[2018-05-11 06:11] LABS: Creatine Kinase MB 123.3 ng/mL (0.5-3.6)
[2018-05-11 06:14] LABS: CKMB Percent 21.2 % (0.0-4.0)
[2018-05-11] MEDS: Chlorhexidine 0.12% Oral Kit 15 ML UDC OROPHARYNG SCH ×2 (08:00→21:01)
[2018-05-11] MEDS: Senna/Docusate Sodium 8.6/50 MG Tablet PO SCH ×2 (08:00→21:01)
[2018-05-11] MEDS ORDERED: Potassium Phosphate Inj 30 MMOL in Sodium Chlor 0.9% Inj 250 ML IV.SIG ONE (10:14)
[2018-05-11] MEDS ORDERED: Insulin Detemir Inj 1,000 UNIT/10 ML Vial SQ SCH (10:15)
[2018-05-11] MEDS ORDERED: Dextrose 50% in Water 50 ML Vial IV.PUSH PRN (10:15)
[2018-05-11] MEDS ORDERED: Potassium Chlor 20 mEq Premix 20 MEQ/100 ML PIGGYBACK IV.SIG PRN ×2 (10:16)
[2018-05-11] MEDS ORDERED: Potassium Chloride 25 MEQ Effervescent Tablet PO PRN (10:16)
[2018-05-11] MEDS ORDERED: Magnesium Sulfate Inj 4 GM in Sodium Chlor 0.9% Inj 92 ML IV.SIG PRN (10:16)
[2018-05-11] MEDS ORDERED: Potassium Chlor 40 mEq Premix 40 MEQ/100 ML PIGGYBACK IV.SIG PRN (10:16)
[2018-05-11] MEDS ORDERED: Magnesium Oxide 400 MG Tablet PO PRN (10:16)
[2018-05-11] MEDS ORDERED: Sodium Phosphate Inj 30 MMOL in Sodium Chlor 0.9% Inj 250 ML IV.SIG PRN (10:16)
[2018-05-11] MEDS ORDERED: Potassium Phosphate Inj 30 MMOL in Sodium Chlor 0.9% Inj 250 ML IV.SIG PRN (10:16)
[2018-05-11] MEDS ORDERED: Magnesium Sulfate Inj 2 GM in Sodium Chlor 0.9% Inj 96 ML IV.SIG PRN (10:16)
--- NOTE | 2018-05-11 10:26 | P.PNNEU ---
Subjective Subjective Comments: No acute events Active Medications: Active Medications Acetaminophen (Tylenol) 650 mg PO Q6H PRN PRN Reason: PAIN 1-5 AND/OR FEVER >101F Al Hydroxide/Mg Hydroxide (Milk Of Christy Liq) 30 ml PO Q12H PRN PRN Reason: Mild Constipation Albuterol (Albuterol Neb (Prn)) 2.5 mg NEB Q2HR NEB PRN PRN Reason: DYSPNEA Albuterol (Duoneb Neb ([facility])) 1 ampul NEB Q4HR NEB [facility] Last Admin: 05/11/18 08:06 Dose: 1 ampul Artificial Tears (Tears Naturale Opth Drops) 1 drop EACH EYE Q8H [facility] Last Admin: 05/11/18 05:41 Dose: 1 drop Aspirin (Aspirin Chew) 81 mg PO DAILY [facility] Last Admin: 05/11/18 08:00 Dose: 81 mg Bisacodyl (Dulcolax Supp) 10 mg RECTAL DAILY PRN PRN Reason: SEVERE CONSITIPATION Buspirone HCl (Buspar) 15 mg NG/OG BID PRN PRN Reason: SHIVERING Carvedilol (Coreg) 3.125 mg PO BID [facility] Last Admin: 05/11/18 08:00 Dose: 3.125 mg Chlorhexidine Gluconate (Peridex 0.12% Oral Kit) 15 ml OROPHARYNG BID@0800, 2000 [facility] Last Admin: 05/11/18 08:00 Dose: 15 ml Chlorhexidine Gluconate (Chlorhexidine 2% Cloth) 3 pack TOPICAL DAILY@0400 [facility] Stop: 05/14/18 03:59 Last Admin: 05/11/18 05:41 Dose: 3 pack Chlorhexidine Gluconate (Chlorhexidine 2% Cloth) 3 pack TOPICAL DAILY@0400 PRN PRN Reason: Extra cloth needed Stop: 05/14/18 03:59 Dextrose (D50w Vial) 50 ml IV.PUSH UNSCH PRN PRN Reason: PER HYPOGLYCEMIA PROTOCOL Dextrose (D50w Vial) 50 ml IV.PUSH UNSCH PRN PRN Reason: PER HYPOGLYCEMIA PROTOCOL Enalapril Maleate (Vasotec) 2.5 mg PO DAILY [facility] Glucagon (Glucagon Inj) 1 mg OTHER PRN PRN PRN Reason: for Hypoglycemia Protocol Hydralazine HCl (Apresoline Inj) 10 mg IV.PUSH Q1H PRN PRN Reason: Sbp>140, Dbp>90 Last Admin: 05/10/18 08:00 Dose: 10 mg Sodium Chloride (Ns Inj) 1,000 mls @ 84 mls/hr IV.CONT .[id number] [facility] Last Admin: 05/10/18 21:45 Dose: 84 mls/hr Propofol (Diprivan 1000 Mg/100 Ml Inj) 1,000 mg in 100 mls @ 2.449 mls/hr IV.CONT TITRATE PRN; Protocol PRN Reason: Per Protocol Last Admin: 05/11/18 05:42 Dose: 20 mcg/kg/min, 9.8 mls/hr Cisatracurium Besylate 100 mg/ (Sodium Chloride) 250 mls @ 40.41 mls/hr IV.CONT TITRATE PRN; Protocol PRN Reason: Per Protocol Last Titration: 05/11/18 00:33 Dose: Infused Fentanyl (Fentanyl 10 Mcg/Ml Premix Drip) 2,500 mcg in 250 mls @ 5 mls/hr IV.SIG TITRATE PRN; Protocol PRN Reason: Per Protocol Last Admin: 05/11/18 05:42 Dose: 250 mcg/hr, 25 mls/hr Norepinephrine Bitartrate 16 (mg/ Sodium Chloride) 250 mls @ 1.87 mls/hr IV.CONT TITRATE PRN; Protocol PRN Reason: See Protocol Last Titration: 05/09/18 14:45 Dose: 0 mcg/min, 0 mls/hr Amiodarone HCl 450 mg/ Sodium (Chloride) 250 mls @ 33.33 mls/hr IV.CONT TITRATE PRN; Protocol PRN Reason: Per Protocol Last Admin: 05/10/18 16:03 Dose: 0.5 mg/min, 16.66 mls/hr Heparin Sodium/Dextrose (Heparin/D5w 25,000 U/250 Ml) 25,000 unit in 250 mls @ 0 mls/hr IV.CONT TITRATE PRN; Protocol PRN Reason: Per Protocol Last Titration: 05/11/18 00:50 Dose: 900 units/hr, 9 mls/hr Piperacillin/Tazobactam/Dextrose (Zosyn 4.5 Gm Premix) 4.5 gm in 100 mls @ 200 mls/hr IV.SIG Q6H [facility] Last Admin: 05/11/18 05:41 Dose: 100 mls/hr Midazolam HCl (Versed Inj) 100 mg in 100 mls @ 2 mls/hr IV.CONT TITRATE PRN; Protocol PRN Reason: Per Protocol Last Titration: 05/11/18 04:00 Dose: 4 mg/hr, 4 mls/hr Potassium Phosphate 30 mmol/ (Sodium Chloride) 260 mls @ 43.333 mls/hr IV.SIG ONCE ONE Stop: 05/11/18 16:13 Magnesium Sulfate 4 gm/ Sodium (Chloride) 100 mls @ 50 mls/hr IV.SIG UNSCH PRN PRN Reason: For Magnesium 0.9 - 1.1 mg/dL Magnesium Sulfate 2 gm/ Sodium (Chloride) 100 mls @ 50 mls/hr IV.SIG UNSCH PRN PRN Reason: For Magnesium 1.2 - 1.6 mg/dL Potassium Chloride (Kcl 40 Meq Premix Inj) 40 meq in 100 mls @ 25 mls/hr IV.SIG Q2H PRN PRN Reason: For Potassium 2.8 - 3.2 mEq/L Potassium Chloride (Kcl 20 Meq Premix Inj) 20 meq in 100 mls @ 50 mls/hr IV.SIG Q2H PRN PRN Reason: For Potassium 3.3 - 3.5 mEq/L Potassium Chloride (Kcl 40 Meq Premix Inj) 40 meq in 100 mls @ 25 mls/hr IV.SIG UNSCH PRN PRN Reason: For Potassium 3.3 - 3.5 mEq/L Potassium Chloride (Kcl 20 Meq Premix Inj) 20 meq in 100 mls @ 50 mls/hr IV.SIG Q2H PRN PRN Reason: For Potassium 2.8 - 3.2 mEq/L Potassium Phosphate 30 mmol/ (Sodium Chloride) 260 mls @ 42 mls/hr IV.SIG UNSCH PRN PRN Reason: SEE LABEL COMMENTS Sodium Phosphate 30 mmol/ (Sodium Chloride) 260 mls @ 42 mls/hr IV.SIG UNSCH PRN PRN Reason: For Phosphorus < 2.5 mg/dL Insulin Aspart (Novolog Insulin Correctional Sugar Inj) 0 unit SQ Q4HR JIM; Protocol Insulin Detemir (Levemir Inj) 6 unit SQ BID JIM Labetalol HCl (Trandate Inj) 10 mg IV.PUSH Q1H PRN PRN Reason: Sbp>140, Dbp>90, Hr>65 Last Admin: 05/10/18 14:30 Dose: 10 mg Lactulose (Lactulose Liq) 30 ml PO DAILY PRN PRN Reason: SEVERE CONSITIPATION Lorazepam (Ativan Inj) 1 mg IV.PUSH Q1H PRN PRN Reason: SEE LABEL COMMENTS Magnesium Oxide (Mag-Ox) 800 mg PO UNSCH PRN PRN Reason: For Magnesium 1.2 - 1.6 mg/dL Meperidine HCl (Demerol Inj) 25 mg IV.PUSH Q2H PRN PRN Reason: SHIVERING Midazolam HCl (Versed Inj) 2 mg IV.PUSH Q1H PRN PRN Reason: SEE LABEL COMMENTS Last Admin: 05/10/18 14:30 Dose: 2 mg Miscellaneous Medication () 1 each OROPHARYNG 0000,0400,1200,1600 [facility] Last Admin: 05/11/18 05:41 Dose: 1 each Morphine Sulfate (Morphine Inj) 2 mg IV.PUSH Q2H PRN PRN Reason: PAIN SCALE 6 TO 10 Ondansetron HCl (Zofran Inj) 4 mg IV.PUSH Q6H PRN PRN Reason: NAUSEA OR VOMITING Pantoprazole Sodium (Protonix Inj) 40 mg IV.PUSH Q24H [facility] Last Admin: 05/10/18 12:53 Dose: 40 mg Potassium Bicarb/Potassium Chloride (K-Lyte Cl Eff) 50 meq PO UNSCH PRN PRN Reason: For Potassium 3.3 - 3.5 mEq/L Potassium Phosphate (K-Phos Original) 2,000 mg PO Q4H PRN PRN Reason: Phosphorus Less Than 2.5 mg/dL Potassium Phosphate (K-Phos Original) 2,000 mg PO UNSCH PRN PRN Reason: SEE LABEL COMMENTS Senna/Docusate Sodium (Lizbeth-Colace) 1 tab PO BID [facility] Last Admin: 05/11/18 08:00 Dose: 1 tab Sennosides (Senokot) 17.2 mg PO Q12H PRN PRN Reason: Moderate Constipation Sodium Chloride (Ns Flush) 2 ml IV.FLUSH BID [facility] Last Admin: 05/11/18 08:00 Dose: 2 ml Sodium Chloride (Ns Flush) 2 ml IV.FLUSH PRN PRN PRN Reason: FLUSH AFTER USING IV ACCESS Terbutaline Sulfate (Brethine Inj) 1 mg SQ UNSCH PRN PRN Reason: For Extravasation Terbutaline Sulfate (Brethine Inj) 1 mg SQ UNSCH PRN PRN Reason: For Extravasation Allergies/Adverse Reactions: Allergies Allergy/AdvReac Type Severity Reaction Status Date / Time No Known Allergies Allergy Uncoded 02/17/15 12:05 Review of Systems unobtainable due to endotracheal tube, unobtainable due to mental condition Physical Exam Vital signs: Vital Signs 05/10/18 11:00 05/10/18 12:00 05/10/18 12:19 Temperature 96.8 F L Pulse Rate 71 71 Respiratory Rate 12 12 18 Pulse Oximetry 97 99 98 05/10/18 13:00 05/10/18 14:00 05/10/18 15:00 Temperature Pulse Rate 73 75 72 Respiratory Rate 12 12 12 Pulse Oximetry 99 99 99 05/10/18 15:07 05/10/18 16:00 05/10/18 16:19 Temperature 96.8 F L Pulse Rate 76 70 Respiratory Rate 12 18 Pulse Oximetry 100 99 100 05/10/18 17:00 05/10/18 18:00 05/10/18 19:00 Temperature Pulse Rate 79 75 73 Respiratory Rate 12 12 12 Pulse Oximetry 99 99 98 05/10/18 19:50 05/10/18 20:00 05/10/18 20:07 Temperature 96.8 F L Pulse Rate 75 76 Respiratory Rate 12 12 13 Pulse Oximetry 97 97 05/10/18 21:00 05/10/18 22:00 05/10/18 22:40 Temperature Pulse Rate 77 74 Respiratory Rate 12 12 12 Pulse Oximetry 97 97 99 05/10/18 23:00 05/10/18 23:47 05/11/18 00:00 Temperature 96.8 F L Pulse Rate 74 73 74 Respiratory Rate 12 12 12 Pulse Oximetry 99 99 05/11/18 01:00 05/11/18 02:00 05/11/18 02:02 Temperature Pulse Rate 74 74 Respiratory Rate 12 12 12 Pulse Oximetry 99 100 99 05/11/18 03:00 05/11/18 03:54 05/11/18 04:00 Temperature 96.8 F L Pulse Rate 75 74 74 Respiratory Rate 12 13 12 Pulse Oximetry 100 99 05/11/18 04:20 05/11/18 05:00 05/11/18 06:00 Temperature Pulse Rate 74 75 Respiratory Rate 12 12 12 Pulse Oximetry 97 98 98 05/11/18 07:00 05/11/18 08:00 Temperature Pulse Rate 74 Respiratory Rate 12 12 Pulse Oximetry 96 Intake & Output 05/10/18 05/11/18 05/11/18 18:59 06:59 18:59 Intake Total 1450 / 1450 2821 / 2821 Output Total 550 / 550 405 / 405 Balance 900 / 900 2416 / 2416 Weight 81.7 kg Intake: IV 1450 / 1450 2505 / 2505 Cordarone Inj 450 MG In NS Inj 250 / 250 241 ML @ 1 MG/MIN 33.33 mls/hr IV.CONT TITRATE PRN Rx#: [id number] Nimbex Inj 100 MG In NS Inj 240 175 / 175 ML @ 3.3 MCG/KG/MIN 40.41 mls/ hr IV.CONT TITRATE PRN Rx#: [id number] Versed Inj 50 mg In 50 ml @ 2 50 / 50 MG/HR 2 mls/hr IV.CONT TITRATE PRN Rx#:[id number] Diprivan 1000 mg/100 ml Inj 1, 100 / 100 100 / 100 000 mg In 100 ml @ 5 MCG/KG/MIN 2.449 mls/hr IV.CONT TITRATE PRN Rx#:[id number] NS Inj 1,000 ML @ 84 mls/hr IV. 1000 / 1000 1000 / 1000 CONT .[id number] JIM Rx#:[id number] Magnesium Sulfate Inj 1 GM In 100 / 100 NS Inj 98 ML @ 100 mls/hr IV. SIG Q1H JIM Rx#:[id number] Zosyn 4.5 GM Premix 4.5 gm In 200 / 200 100 ml @ 200 mls/hr IV.SIG Q6H JIM Rx#:[id number] Glycophos Inj 30 MMOL In NS Inj 280 / 280 250 ML @ 40 mls/hr IV.SIG ONCE ONE Rx#:[id number] fentaNYL 10 mcg/mL Premix Drip 500 / 500 2,500 mcg In 250 ml @ 50 MCG/HR 5 mls/hr IV.SIG TITRATE PRN Rx #:[id number] Tube Feeding 216 / 216 Tube Irrigant 100 / 100 Output: Urine Amount (Catheter) 450 / 450 405 / 405 Indwelling Temp Sensing 450 / 450 405 / 405 Catheter Gastric Drainage 100 / 100 Pre-Hospital Orogastric Tube 100 / 100 Other: # Bowel Movements 0 Narrative: GENERAL: in NAD, SKIN: Warm and dry. HEAD: Atraumatic. Normocephalic. ENT: Intubated NECK: Trachea midline. No JVD. CARDIOVASCULAR: Regular rate and rhythm. RESPIRATORY: Intubated GASTROINTESTINAL: Abdomen soft, non-tender, nondistended. MUSCULOSKELETAL: Extremities without clubbing, cyanosis, or edema. No obvious deformities. NEUROLOGICAL: Intubated sedated on Demadex, propofol, Versed. Comatose nonverbal not following. Pinpoint pupils; blink, corneal reflex on the right greater than left, no current blink to threat no involuntary movements no drooling extremity PSYCHIATRIC: Intubated - Constitutional no acute distress - Routine HEENT Exam Head: Present: normocephalic - Urinary Catheter Management Indwelling Temp Sensing Catheter Cath placed during this visit: yes Reason for continuing: Other continuation reason Insertion date: 05/08/18 Insertion time: 22:40 Objective Laboratory Results - last 24 hr 05/09/18 05/10/18 05/10/18 14:58 11:04 12:09 WBC RBC Hgb Hct MCV MCH MCHC RDW Plt Count MPV Neut % (Auto) Lymph % (Auto) Murray % (Auto) Eos % (Auto) Baso % (Auto) Neut # (Auto) Lymph # (Auto) Murray # (Auto) Eos # (Auto) Baso # (Auto) WBC Differential Differential Comment PT INR APTT Sodium Potassium Chloride Carbon Dioxide Anion Gap BUN Creatinine Estimated GFR POC Glucose 140 H 140 H Random Glucose Hemoglobin A1c 6.5 H Calcium Phosphorus Magnesium Total Bilirubin AST ALT Alkaline Phosphatase Ammonia Total Creatine Kinase CK-MB (CK-2) CK-MB (CK-2) % Troponin I Total Protein Albumin Free T4 Total T3 05/10/18 05/10/18 05/10/18 13:01 13:57 15:15 WBC RBC Hgb Hct MCV MCH MCHC RDW Plt Count MPV Neut % (Auto) Lymph % (Auto) Murray % (Auto) Eos % (Auto) Baso % (Auto) Neut # (Auto) Lymph # (Auto) Murray # (Auto) Eos # (Auto) Baso # (Auto) WBC Differential Differential Comment PT INR APTT Sodium Potassium Chloride Carbon Dioxide Anion Gap BUN Creatinine Estimated GFR POC Glucose 120 H 113 H 122 H Random Glucose Hemoglobin A1c Calcium Phosphorus Magnesium Total Bilirubin AST ALT Alkaline Phosphatase Ammonia Total Creatine Kinase CK-MB (CK-2) CK-MB (CK-2) % Troponin I Total Protein Albumin Free T4 Total T3 05/10/18 05/10/18 05/10/18 15:55 15:55 15:59 WBC RBC Hgb Hct MCV MCH MCHC RDW Plt Count MPV Neut % (Auto) Lymph % (Auto) Murray % (Auto) Eos % (Auto) Baso % (Auto) Neut # (Auto) Lymph # (Auto) Murray # (Auto) Eos # (Auto) Baso # (Auto) WBC Differential Differential Comment PT INR APTT Sodium 142 Potassium 4.2 D Chloride 111 H Carbon Dioxide 21.2 Anion Gap 10 BUN 11 Creatinine 0.67 Estimated GFR Greater than 89 POC Glucose 145 H Random Glucose 155 H Hemoglobin A1c Calcium 8.0 L Phosphorus 1.9 L D Magnesium 2.2 Total Bilirubin AST ALT Alkaline Phosphatase Ammonia Total Creatine Kinase CK-MB (CK-2) CK-MB (CK-2) % Troponin I Total Protein Albumin Free T4 1.08 Cancelled Total T3 05/10/18 05/10/18 05/10/18 16:10 17:19 18:21 WBC RBC Hgb Hct MCV MCH MCHC RDW Plt Count MPV Neut % (Auto) Lymph % (Auto) Murray % (Auto) Eos % (Auto) Baso % (Auto) Neut # (Auto) Lymph # (Auto) Murray # (Auto) Eos # (Auto) Baso # (Auto) WBC Differential Differential Comment PT 11.6 INR 1.1 APTT 32.3 H Sodium Potassium Chloride Carbon Dioxide Anion Gap BUN Creatinine Estimated GFR POC Glucose 140 H 144 H Random Glucose Hemoglobin A1c Calcium Phosphorus Magnesium Total Bilirubin AST ALT Alkaline Phosphatase Ammonia Total Creatine Kinase CK-MB (CK-2) CK-MB (CK-2) % Troponin I Total Protein Albumin Free T4 Total T3 05/10/18 05/10/18 05/10/18 18:55 20:15 21:13 WBC RBC Hgb Hct MCV MCH MCHC RDW Plt Count MPV Neut % (Auto) Lymph % (Auto) Murray % (Auto) Eos % (Auto) Baso % (Auto) Neut # (Auto) Lymph # (Auto) Murray # (Auto) Eos # (Auto) Baso # (Auto) WBC Differential Differential Comment PT INR APTT Sodium Potassium Chloride Carbon Dioxide Anion Gap BUN Creatinine Estimated GFR POC Glucose 151 H 139 H 125 H Random Glucose Hemoglobin A1c Calcium Phosphorus Magnesium Total Bilirubin AST ALT Alkaline Phosphatase Ammonia Total Creatine Kinase CK-MB (CK-2) CK-MB (CK-2) % Troponin I Total Protein Albumin Free T4 Total T3 05/10/18 05/10/18 05/10/18 22:13 22:15 22:15 WBC RBC Hgb Hct MCV MCH MCHC RDW Plt Count MPV Neut % (Auto) Lymph % (Auto) Murray % (Auto) Eos % (Auto) Baso % (Auto) Neut # (Auto) Lymph # (Auto) Murray # (Auto) Eos # (Auto) Baso # (Auto) WBC Differential Differential Comment PT INR APTT 74.1 H D Sodium Potassium Chloride Carbon Dioxide Anion Gap BUN Creatinine Estimated GFR POC Glucose 122 H Random Glucose Hemoglobin A1c Calcium Phosphorus Magnesium Total Bilirubin AST ALT Alkaline Phosphatase Ammonia Total Creatine Kinase CK-MB (CK-2) CK-MB (CK-2) % Troponin I Total Protein Albumin Free T4 Total T3 70 05/10/18 05/11/18 05/11/18 23:00 00:00 01:02 WBC RBC Hgb Hct MCV MCH MCHC RDW Plt Count MPV Neut % (Auto) Lymph % (Auto) Murray % (Auto) Eos % (Auto) Baso % (Auto) Neut # (Auto) Lymph # (Auto) Murray # (Auto) Eos # (Auto) Baso # (Auto) WBC Differential Differential Comment PT INR APTT Sodium Potassium Chloride Carbon Dioxide Anion Gap BUN Creatinine Estimated GFR POC Glucose 116 H 132 H 121 H Random Glucose Hemoglobin A1c Calcium Phosphorus Magnesium Total Bilirubin AST ALT Alkaline Phosphatase Ammonia Total Creatine Kinase CK-MB (CK-2) CK-MB (CK-2) % Troponin I Total Protein Albumin Free T4 Total T3 05/11/18 05/11/18 05/11/18 01:52 03:02 03:56 WBC RBC Hgb Hct MCV MCH MCHC RDW Plt Count MPV Neut % (Auto) Lymph % (Auto) Murray % (Auto) Eos % (Auto) Baso % (Auto) Neut # (Auto) Lymph # (Auto) Murray # (Auto) Eos # (Auto) Baso # (Auto) WBC Differential Differential Comment PT INR APTT Sodium Potassium Chloride Carbon Dioxide Anion Gap BUN Creatinine Estimated GFR POC Glucose 118 H 117 H 137 H Random Glucose Hemoglobin A1c Calcium Phosphorus Magnesium Total Bilirubin AST ALT Alkaline Phosphatase Ammonia Total Creatine Kinase CK-MB (CK-2) CK-MB (CK-2) % Troponin I Total Protein Albumin Free T4 Total T3 05/11/18 05/11/18 05/11/18 05:08 05:08 05:08 WBC 14.2 H RBC 4.75 Hgb 13.4 Hct 40.7 MCV 85.8 MCH 28.3 MCHC 33.0 RDW 15.0 Plt Count 180 MPV 8.1 Neut % (Auto) 89.1 H Lymph % (Auto) 6.5 L Murray % (Auto) 3.8 Eos % (Auto) 0.5 Baso % (Auto) 0.1 Neut # (Auto) 12.6 H Lymph # (Auto) 0.9 L Murray # (Auto) 0.5 Eos # (Auto) 0.1 Baso # (Auto) 0.0 WBC Differential . Differential Comment Auto diff final PT INR APTT 63.4 H Sodium 145 Potassium 3.4 L D Chloride 113 H Carbon Dioxide 26.1 Anion Gap 6 BUN 11 Creatinine 0.57 L Estimated GFR Greater than 89 POC Glucose Random Glucose 144 H Hemoglobin A1c Calcium 7.7 L Phosphorus 1.9 L Magnesium 2.1 Total Bilirubin 0.5 AST 125 H ALT 69 Alkaline Phosphatase 55 Ammonia Total Creatine Kinase 582 H CK-MB (CK-2) 123.3 H CK-MB (CK-2) % 21.2 H* Troponin I 31.30 H* Total Protein 5.2 L D Albumin 2.5 L D Free T4 Total T3 05/11/18 05/11/18 05/11/18 05:08 05:09 05:48 WBC RBC Hgb Hct MCV MCH MCHC RDW Plt Count MPV Neut % (Auto) Lymph % (Auto) Murray % (Auto) Eos % (Auto) Baso % (Auto) Neut # (Auto) Lymph # (Auto) Murray # (Auto) Eos # (Auto) Baso # (Auto) WBC Differential Differential Comment PT INR APTT Sodium Potassium Chloride Carbon Dioxide Anion Gap BUN Creatinine Estimated GFR POC Glucose 132 H 109 Random Glucose Hemoglobin A1c Calcium Phosphorus Magnesium Total Bilirubin AST ALT Alkaline Phosphatase Ammonia 23 Total Creatine Kinase CK-MB (CK-2) CK-MB (CK-2) % Troponin I Total Protein Albumin Free T4 Total T3 05/11/18 05/11/18 05/11/18 06:57 07:59 09:04 WBC RBC Hgb Hct MCV MCH MCHC RDW Plt Count MPV Neut % (Auto) Lymph % (Auto) Murray % (Auto) Eos % (Auto) Baso % (Auto) Neut # (Auto) Lymph # (Auto) Murray # (Auto) Eos # (Auto) Baso # (Auto) WBC Differential Differential Comment PT INR APTT Sodium Potassium Chloride Carbon Dioxide Anion Gap BUN Creatinine Estimated GFR POC Glucose 136 H 132 H 167 H Random Glucose Hemoglobin A1c Calcium Phosphorus Magnesium Total Bilirubin AST ALT Alkaline Phosphatase Ammonia Total Creatine Kinase CK-MB (CK-2) CK-MB (CK-2) % Troponin I Total Protein Albumin Free T4 Total T3 05/11/18 09:55 WBC RBC Hgb Hct MCV MCH MCHC RDW Plt Count MPV Neut % (Auto) Lymph % (Auto) Murray % (Auto) Eos % (Auto) Baso % (Auto) Neut # (Auto) Lymph # (Auto) Murray # (Auto) Eos # (Auto) Baso # (Auto) WBC Differential Differential Comment PT INR APTT Sodium Potassium Chloride Carbon Dioxide Anion Gap BUN Creatinine Estimated GFR POC Glucose 121 H Random Glucose Hemoglobin A1c Calcium Phosphorus Magnesium Total Bilirubin AST ALT Alkaline Phosphatase Ammonia Total Creatine Kinase CK-MB (CK-2) CK-MB (CK-2) % Troponin I Total Protein Albumin Free T4 Total T3 Microbiology 05/08/18 22:30 Urine Culture - Final Catheterized Urine No growth in 48 hours 05/09/18 16:00 Aerobic Blood Culture - Preliminary Blood - Line No growth in 1 day Anaerobic Blood Culture - Preliminary No growth in 1 day 05/08/18 21:38 Aerobic Blood Culture - Preliminary Blood - Peripheral No growth in 2 days Anaerobic Blood Culture - Preliminary No growth in 2 days 05/08/18 21:33 Aerobic Blood Culture - Preliminary Blood - Peripheral No growth in 2 days Anaerobic Blood Culture - Preliminary No growth in 2 days Review/Management - Diagnosis (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 fib arrest underlying code cool MRI brain reviewed. No pontine hemorrhage. No diffusion restriction noted on DWI images. On heparin drip Recommendation Possible rewarming per critical care On sedatives and paralytic agents. Limited exam Discussed with the nursing
--- NOTE | 2018-05-11 11:19 | P.DIET ---
Nutritional Evaluation Type of nutrition evaluation: initial Nutrition consult regarding: Tube Feeding Screening comments: TF review Objective - Diagnosis s/p cardiac arrest, STEMI, Brain bleed - Objective Body Mass Index: 25.8 % IBW: 108 (IBW = 166lb) Body Weight Used for Calculations: Actual Energy Needs - Lower Range (kCal/kg): 22 Energy Needs - Upper Range (kCal/kg): 28 Lower Limit kCal/kg (kCals): 1,797 Upper Limit kCal/kg (kCals): 2,288 Lower Limit Protein Factor (Grams per Kg): 1.2 Upper Limit Protein Factor (Grams per Kg): 1.5 Lower Protein Needs (Protein): 98 Upper Protein Needs (Protein): 123 Dietitian Reviewed in Medical Record: Current diet, Curent medications, Intake & Output, Labs, Medical history, Tube feeding Diet Order: TF Objective Comments: Labs: K+ 3.4, Cr 0.57 POC glucose: 130 116 121, random glucose 151 155 144, HgbA1c 6.5% Assessment Assessment: Pt currently intubated and sedated w/ fentanyl, propofol. Pt receiving Vital 1.5 @ 30mL currently per MD. RD to recommend Vital 1.5 @ 60mL/hr to provide 2160 kcal, 97g of protein, and 1100 mL of free water to best meet pts nutritional needs. Additional kcals (1.1 kcal/mL) provided by propofol when running. Monitor TF tolerance and glucose labs. Labs reviewed, dietitian following. Recommendations: 1. RD to recommend Vital 1.5 @ 60mL/hr to best meet pts nutritional needs 2. Additional kcals (1.1 kcal/mL) provided by propofol when running 3. Monitor TF tolerance and glucose labs 4. Dietitian following Dietitian to Monitor: Lab values, Intake & Output, Tube feeding tolerance, Medical course
[2018-05-11] MEDS: Sod Chloride 0.9% Inj 1,000 ML IV.CONT SCH ×2 (11:24→21:02)
[2018-05-11] MEDS: Amiodarone Inj 450 MG in Sodium Chlor 0.9% Inj 241 ML IV.CONT PRN (11:25)
[2018-05-11] MEDS: Insulin NovoLOG Aspart Correctional Sugar Inj SQ SCH ×3 (11:40→21:01)
--- NOTE | 2018-05-11 11:57 | P.PNCA ---
Subjective Interval history: Intubated. Unresponsive. Medications and Allergies Active Medications: Active Medications Acetaminophen (Tylenol) 650 mg PO Q6H PRN PRN Reason: PAIN 1-5 AND/OR FEVER >101F Al Hydroxide/Mg Hydroxide (Milk Of Magnmir Liq) 30 ml PO Q12H PRN PRN Reason: Mild Constipation Albuterol (Albuterol Neb (Prn)) 2.5 mg NEB Q2HR NEB PRN PRN Reason: DYSPNEA Albuterol (Duoneb Neb (Chao)) 1 ampul NEB Q4HR NEB [facility] Last Admin: 05/11/18 11:30 Dose: 1 ampul Artificial Tears (Tears Naturale Opth Drops) 1 drop EACH EYE Q8H [facility] Last Admin: 05/11/18 05:41 Dose: 1 drop Aspirin (Aspirin Chew) 81 mg PO DAILY [facility] Last Admin: 05/11/18 08:00 Dose: 81 mg Bisacodyl (Dulcolax Supp) 10 mg RECTAL DAILY PRN PRN Reason: SEVERE CONSITIPATION Buspirone HCl (Buspar) 15 mg NG/OG BID PRN PRN Reason: SHIVERING Last Admin: 05/11/18 11:25 Dose: 15 mg Carvedilol (Coreg) 3.125 mg PO BID [facility] Last Admin: 05/11/18 08:00 Dose: 3.125 mg Chlorhexidine Gluconate (Peridex 0.12% Oral Kit) 15 ml OROPHARYNG BID@0800, 2000 [facility] Last Admin: 05/11/18 08:00 Dose: 15 ml Chlorhexidine Gluconate (Chlorhexidine 2% Cloth) 3 pack TOPICAL DAILY@0400 [facility] Stop: 05/14/18 03:59 Last Admin: 05/11/18 05:41 Dose: 3 pack Chlorhexidine Gluconate (Chlorhexidine 2% Cloth) 3 pack TOPICAL DAILY@0400 PRN PRN Reason: Extra cloth needed Stop: 05/14/18 03:59 Dextrose (D50w Vial) 50 ml IV.PUSH UNSCH PRN PRN Reason: PER HYPOGLYCEMIA PROTOCOL Dextrose (D50w Vial) 50 ml IV.PUSH UNSCH PRN PRN Reason: PER HYPOGLYCEMIA PROTOCOL Enalapril Maleate (Vasotec) 2.5 mg PO DAILY [facility] Last Admin: 05/11/18 11:31 Dose: 2.5 mg Glucagon (Glucagon Inj) 1 mg OTHER PRN PRN PRN Reason: for Hypoglycemia Protocol Hydralazine HCl (Apresoline Inj) 10 mg IV.PUSH Q1H PRN PRN Reason: Sbp>140, Dbp>90 Last Admin: 05/10/18 08:00 Dose: 10 mg Sodium Chloride (Ns Inj) 1,000 mls @ 84 mls/hr IV.CONT .[id number] [facility] Last Admin: 05/11/18 11:24 Dose: 84 mls/hr Propofol (Diprivan 1000 Mg/100 Ml Inj) 1,000 mg in 100 mls @ 2.449 mls/hr IV.CONT TITRATE PRN; Protocol PRN Reason: Per Protocol Last Admin: 05/11/18 05:42 Dose: 20 mcg/kg/min, 9.8 mls/hr Cisatracurium Besylate 100 mg/ (Sodium Chloride) 250 mls @ 40.41 mls/hr IV.CONT TITRATE PRN; Protocol PRN Reason: Per Protocol Last Titration: 05/11/18 00:33 Dose: Infused Fentanyl (Fentanyl 10 Mcg/Ml Premix Drip) 2,500 mcg in 250 mls @ 5 mls/hr IV.SIG TITRATE PRN; Protocol PRN Reason: Per Protocol Last Admin: 05/11/18 05:42 Dose: 250 mcg/hr, 25 mls/hr Norepinephrine Bitartrate 16 (mg/ Sodium Chloride) 250 mls @ 1.87 mls/hr IV.CONT TITRATE PRN; Protocol PRN Reason: See Protocol Last Titration: 05/09/18 14:45 Dose: 0 mcg/min, 0 mls/hr Amiodarone HCl 450 mg/ Sodium (Chloride) 250 mls @ 33.33 mls/hr IV.CONT TITRATE PRN; Protocol PRN Reason: Per Protocol Last Admin: 05/11/18 11:25 Dose: 0.5 mg/min, 16.66 mls/hr Heparin Sodium/Dextrose (Heparin/D5w 25,000 U/250 Ml) 25,000 unit in 250 mls @ 0 mls/hr IV.CONT TITRATE PRN; Protocol PRN Reason: Per Protocol Last Titration: 05/11/18 00:50 Dose: 900 units/hr, 9 mls/hr Piperacillin/Tazobactam/Dextrose (Zosyn 4.5 Gm Premix) 4.5 gm in 100 mls @ 200 mls/hr IV.SIG Q6H [facility] Last Admin: 05/11/18 11:32 Dose: 100 mls/hr Midazolam HCl (Versed Inj) 100 mg in 100 mls @ 2 mls/hr IV.CONT TITRATE PRN; Protocol PRN Reason: Per Protocol Last Titration: 05/11/18 04:00 Dose: 4 mg/hr, 4 mls/hr Potassium Phosphate 30 mmol/ (Sodium Chloride) 260 mls @ 43.333 mls/hr IV.SIG ONCE ONE Stop: 05/11/18 16:13 Magnesium Sulfate 4 gm/ Sodium (Chloride) 100 mls @ 50 mls/hr IV.SIG UNSCH PRN PRN Reason: For Magnesium 0.9 - 1.1 mg/dL Magnesium Sulfate 2 gm/ Sodium (Chloride) 100 mls @ 50 mls/hr IV.SIG UNSCH PRN PRN Reason: For Magnesium 1.2 - 1.6 mg/dL Potassium Chloride (Kcl 40 Meq Premix Inj) 40 meq in 100 mls @ 25 mls/hr IV.SIG Q2H PRN PRN Reason: For Potassium 2.8 - 3.2 mEq/L Potassium Chloride (Kcl 20 Meq Premix Inj) 20 meq in 100 mls @ 50 mls/hr IV.SIG Q2H PRN PRN Reason: For Potassium 3.3 - 3.5 mEq/L Potassium Chloride (Kcl 40 Meq Premix Inj) 40 meq in 100 mls @ 25 mls/hr IV.SIG UNSCH PRN PRN Reason: For Potassium 3.3 - 3.5 mEq/L Potassium Chloride (Kcl 20 Meq Premix Inj) 20 meq in 100 mls @ 50 mls/hr IV.SIG Q2H PRN PRN Reason: For Potassium 2.8 - 3.2 mEq/L Potassium Phosphate 30 mmol/ (Sodium Chloride) 260 mls @ 42 mls/hr IV.SIG UNSCH PRN PRN Reason: SEE LABEL COMMENTS Sodium Phosphate 30 mmol/ (Sodium Chloride) 260 mls @ 42 mls/hr IV.SIG UNSCH PRN PRN Reason: For Phosphorus < 2.5 mg/dL Insulin Aspart (Novolog Insulin Correctional Sugar Inj) 0 unit SQ Q4HR [facility]; Protocol Last Admin: 05/11/18 11:40 Dose: Not Given Insulin Detemir (Levemir Inj) 6 unit SQ BID [facility] Last Admin: 05/11/18 11:31 Dose: 6 unit Labetalol HCl (Trandate Inj) 10 mg IV.PUSH Q1H PRN PRN Reason: Sbp>140, Dbp>90, Hr>65 Last Admin: 05/10/18 14:30 Dose: 10 mg Lactulose (Lactulose Liq) 30 ml PO DAILY PRN PRN Reason: SEVERE CONSITIPATION Lorazepam (Ativan Inj) 1 mg IV.PUSH Q1H PRN PRN Reason: SEE LABEL COMMENTS Magnesium Oxide (Mag-Ox) 800 mg PO UNSCH PRN PRN Reason: For Magnesium 1.2 - 1.6 mg/dL Meperidine HCl (Demerol Inj) 25 mg IV.PUSH Q2H PRN PRN Reason: SHIVERING Midazolam HCl (Versed Inj) 2 mg IV.PUSH Q1H PRN PRN Reason: SEE LABEL COMMENTS Last Admin: 05/10/18 14:30 Dose: 2 mg Miscellaneous Medication () 1 each OROPHARYNG 0000,0400,1200,1600 [facility] Last Admin: 05/11/18 11:40 Dose: 1 each Morphine Sulfate (Morphine Inj) 2 mg IV.PUSH Q2H PRN PRN Reason: PAIN SCALE 6 TO 10 Ondansetron HCl (Zofran Inj) 4 mg IV.PUSH Q6H PRN PRN Reason: NAUSEA OR VOMITING Pantoprazole Sodium (Protonix Inj) 40 mg IV.PUSH Q24H [facility] Last Admin: 05/10/18 12:53 Dose: 40 mg Potassium Bicarb/Potassium Chloride (K-Lyte Cl Eff) 50 meq PO UNSCH PRN PRN Reason: For Potassium 3.3 - 3.5 mEq/L Potassium Phosphate (K-Phos Original) 2,000 mg PO Q4H PRN PRN Reason: Phosphorus Less Than 2.5 mg/dL Potassium Phosphate (K-Phos Original) 2,000 mg PO UNSCH PRN PRN Reason: SEE LABEL COMMENTS Senna/Docusate Sodium (Lizbeth-Colace) 1 tab PO BID [facility] Last Admin: 05/11/18 08:00 Dose: 1 tab Sennosides (Senokot) 17.2 mg PO Q12H PRN PRN Reason: Moderate Constipation Sodium Chloride (Ns Flush) 2 ml IV.FLUSH BID [facility] Last Admin: 05/11/18 08:00 Dose: 2 ml Sodium Chloride (Ns Flush) 2 ml IV.FLUSH PRN PRN PRN Reason: FLUSH AFTER USING IV ACCESS Terbutaline Sulfate (Brethine Inj) 1 mg SQ UNSCH PRN PRN Reason: For Extravasation Terbutaline Sulfate (Brethine Inj) 1 mg SQ UNSCH PRN PRN Reason: For Extravasation Allergies Allergy/AdvReac Type Severity Reaction Status Date / Time No Known Allergies Allergy Uncoded 02/17/15 12:05 Home Medications Medication Instructions Recorded Confirmed Type No Known Home Medications 05/08/18 05/08/18 History Physical Exam Vital signs: Vital Signs 05/10/18 12:00 05/10/18 12:19 05/10/18 13:00 Temperature 96.8 F L Pulse Rate 71 73 Respiratory Rate 12 18 12 Pulse Oximetry 99 98 99 05/10/18 14:00 05/10/18 15:00 05/10/18 15:07 Temperature Pulse Rate 75 72 Respiratory Rate 12 12 Pulse Oximetry 99 99 100 05/10/18 16:00 05/10/18 16:19 05/10/18 17:00 Temperature 96.8 F L Pulse Rate 76 70 79 Respiratory Rate 12 18 12 Pulse Oximetry 99 100 99 05/10/18 18:00 05/10/18 19:00 05/10/18 19:50 Temperature Pulse Rate 75 73 Respiratory Rate 12 12 12 Pulse Oximetry 99 98 97 05/10/18 20:00 05/10/18 20:07 05/10/18 21:00 Temperature 96.8 F L Pulse Rate 75 76 77 Respiratory Rate 12 13 12 Pulse Oximetry 97 97 05/10/18 22:00 05/10/18 22:40 05/10/18 23:00 Temperature Pulse Rate 74 74 Respiratory Rate 12 12 12 Pulse Oximetry 97 99 99 05/10/18 23:47 05/11/18 00:00 05/11/18 01:00 Temperature 96.8 F L Pulse Rate 73 74 74 Respiratory Rate 12 12 12 Pulse Oximetry 99 99 05/11/18 02:00 05/11/18 02:02 05/11/18 03:00 Temperature Pulse Rate 74 75 Respiratory Rate 12 12 12 Pulse Oximetry 100 99 100 05/11/18 03:54 05/11/18 04:00 05/11/18 04:20 Temperature 96.8 F L Pulse Rate 74 74 Respiratory Rate 13 12 12 Pulse Oximetry 99 97 05/11/18 05:00 05/11/18 06:00 05/11/18 07:00 Temperature Pulse Rate 74 75 74 Respiratory Rate 12 12 12 Pulse Oximetry 98 98 05/11/18 08:00 05/11/18 11:00 05/11/18 11:31 Temperature Pulse Rate 83 Respiratory Rate 12 23 23 Pulse Oximetry 96 96 Intake & Output 05/10/18 05/11/18 05/11/18 18:59 06:59 18:59 Intake Total 1450 / 1450 2921 / 2921 1250 / 1250 Output Total 550 / 550 405 / 405 Balance 900 / 900 2516 / 2516 1250 / 1250 Weight 81.7 kg Intake: IV 1450 / 1450 2605 / 2605 1250 / 1250 Cordarone Inj 450 MG In NS Inj 250 / 250 250 / 250 241 ML @ 1 MG/MIN 33.33 mls/hr IV.CONT TITRATE PRN Rx#: [id number] Nimbex Inj 100 MG In NS Inj 240 175 / 175 ML @ 3.3 MCG/KG/MIN 40.41 mls/ hr IV.CONT TITRATE PRN Rx#: [id number] Versed Inj 50 mg In 50 ml @ 2 50 / 50 MG/HR 2 mls/hr IV.CONT TITRATE PRN Rx#:[id number] Diprivan 1000 mg/100 ml Inj 1, 100 / 100 100 / 100 000 mg In 100 ml @ 5 MCG/KG/MIN 2.449 mls/hr IV.CONT TITRATE PRN Rx#:[id number] NS Inj 1,000 ML @ 84 mls/hr IV. 1000 / 1000 1000 / 1000 1000 / 1000 CONT .[id number] [facility] Rx#:[id number] Magnesium Sulfate Inj 1 GM In 100 / 100 NS Inj 98 ML @ 100 mls/hr IV. SIG Q1H [facility] Rx#:[id number] Zosyn 4.5 GM Premix 4.5 gm In 300 / 300 100 ml @ 200 mls/hr IV.SIG Q6H [facility] Rx#:[id number] Glycophos Inj 30 MMOL In NS Inj 280 / 280 250 ML @ 40 mls/hr IV.SIG ONCE ONE Rx#:[id number] fentaNYL 10 mcg/mL Premix Drip 500 / 500 2,500 mcg In 250 ml @ 50 MCG/HR 5 mls/hr IV.SIG TITRATE PRN Rx #:[id number] Tube Feeding 216 / 216 Tube Irrigant 100 / 100 Output: Urine Amount (Catheter) 450 / 450 405 / 405 Indwelling Temp Sensing 450 / 450 405 / 405 Catheter Gastric Drainage 100 / 100 Pre-Hospital Orogastric Tube 100 / 100 Other: # Bowel Movements 0 - Constitutional Comments: Intubated. Unresponsive. - Routine Neck Exam Absent: JVD - Routine Respiratory Exam Comments: Lungs clear anteriorly. - Routine Cardiovascular Exam Present: RRR, S1, S2. Absent: murmur, gallop - Routine Abdominal Exam Present: soft, normoactive bowel sounds. Absent: organomegaly - Routine Extremities Exam Absent: cyanosis, clubbing, edema - Urinary Catheter Management Indwelling Temp Sensing Catheter Cath placed during this visit: yes Reason for continuing: Other continuation reason Insertion date: 05/08/18 Insertion time: 22:40 Results 05/11/18 05:08 05/11/18 05:08 Cardiac Enzymes 05/09/18 05/09/18 05/10/18 Range/Units 14:58 14:58 00:30 AST (15-37) U/L CK-MB (CK-2) 269.5 H (0.5-3.6) ng/mL Troponin I 10.90 H* Cancelled 28.20 H* (0.02-0.05) ng/mL 05/10/18 05/11/18 Range/Units 05:00 05:08 AST 228 H 125 H (15-37) U/L CK-MB (CK-2) 368.5 H 123.3 H (0.5-3.6) ng/mL Troponin I 32.40 H* 31.30 H* (0.02-0.05) ng/mL Coagulation 05/10/18 05/10/18 05/10/18 Range/Units 05:00 16:10 22:15 PT 11.4 11.6 (9.8-11.6) sec APTT 31.3 32.3 H 74.1 H D (23.4-31.7) sec 05/11/18 Range/Units 05:08 PT (9.8-11.6) sec APTT 63.4 H (23.4-31.7) sec Lipids 05/09/18 05/09/18 Range/Units 14:58 14:58 Triglycerides 89 Cancelled (42-150) mg/dL Cholesterol 129 Cancelled (120-200) mg/dL HDL Cholesterol 50.7 Cancelled (40.0-60.0) mg/dL Cholesterol/HDL Ratio 2.54 Cancelled Ratio CBC 05/10/18 05/11/18 Range/Units 05:00 05:08 WBC 17.2 H 14.2 H (4.0-11.0) th/mm3 RBC 4.99 4.75 (4.50-5.90) mil/mm3 Hgb 14.3 13.4 (13.0-17.0) gm/dL Hct 42.0 40.7 (39.0-51.0) % Plt Count 216 180 (150-450) th/mm3 Neut # (Auto) 16.1 H 12.6 H (1.8-7.7) th/mm3 Lymph # (Auto) 0.5 L 0.9 L (1.0-4.8) th/mm3 [place] # (Auto) 0.6 0.5 (0.0-0.9) th/mm3 Eos # (Auto) 0.0 0.1 (0.0-0.4) th/mm3 Baso # (Auto) 0.0 0.0 (0.0-0.2) th/mm3 Comprehensive Metabolic Panel 05/09/18 05/09/18 05/10/18 Range/Units 14:58 20:00 00:30 Sodium 140 141 141 (136-145) meq/L Potassium 3.6 D 3.3 L 3.2 L (3.5-5.1) meq/L Chloride 107 109 H 109 H (98-107) meq/L Carbon Dioxide 22.6 22.2 22.1 (21.0-32.0) meq/L BUN 11 11 11 (7-18) mg/dL Creatinine 0.71 0.68 0.59 L (0.60-1.30) mg/dL Calcium 8.3 L 8.3 L 8.2 L (8.5-10.1) mg/dL AST (15-37) U/L ALT (12-78) U/L Alkaline Phosphatase (45-117) U/L Total Protein (6.4-8.2) g/dL Albumin (3.4-5.0) g/dL 05/10/18 05/10/18 05/10/18 Range/Units 02:00 05:00 15:55 Sodium 141 142 142 (136-145) meq/L Potassium 3.2 L 3.1 L 4.2 D (3.5-5.1) meq/L Chloride 110 H 109 H 111 H (98-107) meq/L Carbon Dioxide 22.4 21.3 21.2 (21.0-32.0) meq/L BUN 11 11 11 (7-18) mg/dL Creatinine 0.54 L 0.56 L 0.67 (0.60-1.30) mg/dL Calcium 7.8 L 8.2 L 8.0 L (8.5-10.1) mg/dL AST 228 H (15-37) U/L ALT 96 H (12-78) U/L Alkaline Phosphatase 63 (45-117) U/L Total Protein 6.1 L D (6.4-8.2) g/dL Albumin 3.6 (3.4-5.0) g/dL 05/11/18 Range/Units 05:08 Sodium 145 (136-145) meq/L Potassium 3.4 L D (3.5-5.1) meq/L Chloride 113 H (98-107) meq/L Carbon Dioxide 26.1 (21.0-32.0) meq/L BUN 11 (7-18) mg/dL Creatinine 0.57 L (0.60-1.30) mg/dL Calcium 7.7 L (8.5-10.1) mg/dL AST 125 H (15-37) U/L ALT 69 (12-78) U/L Alkaline Phosphatase 55 (45-117) U/L Total Protein 5.2 L D (6.4-8.2) g/dL Albumin 2.5 L D (3.4-5.0) g/dL Intake and Output 05/10/18 05/11/18 05/11/18 22:59 06:59 14:59 Intake Total 1400 / 1400 1521 / 1521 1250 / 1250 Output Total 550 / 550 405 / 405 Balance 850 / 850 1116 / 1116 1250 / 1250 Intake: IV 1400 / 1400 1205 / 1205 1250 / 1250 Cordarone Inj 450 MG In NS Inj 250 / 250 241 ML @ 1 MG/MIN 33.33 mls/hr IV.CONT TITRATE PRN Rx#: [id number] Nimbex Inj 100 MG In NS Inj 240 175 / 175 ML @ 3.3 MCG/KG/MIN 40.41 mls/ hr IV.CONT TITRATE PRN Rx#: [id number] Versed Inj 50 mg In 50 ml @ 2 50 / 50 MG/HR 2 mls/hr IV.CONT TITRATE PRN Rx#:[id number] Diprivan 1000 mg/100 ml Inj 1, 100 / 100 000 mg In 100 ml @ 5 MCG/KG/MIN 2.449 mls/hr IV.CONT TITRATE PRN Rx#:[id number] NS Inj 1,000 ML @ 84 mls/hr IV. 1000 / 1000 1000 / 1000 CONT .[id number] [facility] Rx#:[id number] Zosyn 4.5 GM Premix 4.5 gm In 100 / 100 200 / 200 100 ml @ 200 mls/hr IV.SIG Q6H [facility] Rx#:[id number] Glycophos Inj 30 MMOL In NS Inj 280 / 280 250 ML @ 40 mls/hr IV.SIG ONCE ONE Rx#:[id number] fentaNYL 10 mcg/mL Premix Drip 250 / 250 250 / 250 2,500 mcg In 250 ml @ 50 MCG/HR 5 mls/hr IV.SIG TITRATE PRN Rx #:[id number] Tube Feeding 216 / 216 Tube Irrigant 100 / 100 Output: Urine Amount (Catheter) 450 / 450 405 / 405 Indwelling Temp Sensing 450 / 450 405 / 405 Catheter Gastric Drainage 100 / 100 Pre-Hospital Orogastric Tube 100 / 100 Other: # Bowel Movements 0 Weight 81.7 kg - Imaging and Cardiology Imaging: Impressions Head MRI 05/10/18 00:00 CONCLUSION: 1. No evidence of acute hemorrhage within the right araseli. 2. No acute infarct, acute hemorrhage, midline shift or extra-axial fluid collection. 3. Mucosal thickening involving the left maxillary sinus, bilateral anterior ethmoid air cells and bilateral sphenoid sinuses. 4. Some fluid within the mastoid air cells bilaterally. Chest X-Ray 05/10/18 06:00 CONCLUSION: Infiltrating the medial right lower lobe or right middle lobe. Infiltrate is increased from the previous study Head MRA 05/10/18 06:52 CONCLUSION: 1. Negative MRA Cow ([facility]) non contrast. Chest X-Ray 05/11/18 06:00 CONCLUSION: Bilateral pleural effusions right greater than left. ET tube in good position. Assessment and Plan - Assessment (1) ST elevation (STEMI) myocardial infarction involving left anterior descending coronary artery Code(s): I21.02 - ST elevation (STEMI) myocardial infarction involving left anterior descending coronary artery Status: Acute Plan: Overall remains hemodynamically stable. Unfortunately echo suggests patient sustained large LAD coronary territory infarction, EF now 30%. Recommend conservative management unless he neurologically recovers. Continue MAURILIO-I, aspirin, heparin drip, beta eleuterio. (2) Cardiac arrest Code(s): I46.9 - Cardiac arrest, cause unspecified Status: Acute Plan: No further ventricular tachyarrhythmias. Continue Amiodarone drip for now. (3) Ischemic cardiomyopathy Code(s): I25.5 - Ischemic cardiomyopathy Status: Acute Plan: EF ~30% by echo. Probable CHF by chest x-ray. Recommend mild diuresis, continue MAURILIO-I, beta eleuterio. - Plan Code Status: full code Discussed Condition With: nurse
[2018-05-11] MEDS: Pantoprazole Inj 40 MG Vial IV.PUSH SCH (12:05)
--- NOTE | 2018-05-11 12:26 | P.PNCC ---
Subjective Subjective Remarks/Hospital Course: 63-year-old male presents to emergency department intubated after VF/VT arrest. He had to be defibrillated twice in the field, afterwards clear STEMI criteria was called by [facility]. Apparently heard a collapse in the next room found the patient unresponsive called 9 1. Apparently total downtime was about 10 minutes and had a very quick Rask. Blood pressure was little low and dopamine drip was started in the field. Patient also had amiodarone started in the field. Initially the STEMI alert was called brain demonstrated punctate hyperdensity characteristic of hemorrhage in the right mid araseli in the STEMI alert was canceled. The patient has been admitted to ICU for hypothermia protocol treatment post cardiac arrest. 05/09: Discussed with at bedside. Currently on target temperature monitoring. EEG performed. Replacing potassium and phosphorus this a.m. 05/10: Currently temperature is a 97. Has been rewarmed from target temperature monitoring. EEG revealed no epileptic activity. Replace potassium currently. MRI brain revealed no signs of hemorrhage. Will start on heparin drip VA protocol 900 units an hour and provide aspirin. Carvedilol started by cardiology during the a.m. Subjective: 05/11: Phosphorus being replaced. Weaning off sedation currently. Rewarmed to 37 C. No problem. Tolerating tube feeds currently at 30 cc now. Objective Vital Signs / I&O: Vital Signs 05/10/18 13:00 05/10/18 14:00 05/10/18 15:00 Temperature Pulse Rate 73 75 72 Respiratory Rate 12 12 12 Pulse Oximetry 99 99 99 05/10/18 15:07 05/10/18 16:00 05/10/18 16:19 Temperature 96.8 F L Pulse Rate 76 70 Respiratory Rate 12 18 Pulse Oximetry 100 99 100 05/10/18 17:00 05/10/18 18:00 05/10/18 19:00 Temperature Pulse Rate 79 75 73 Respiratory Rate 12 12 12 Pulse Oximetry 99 99 98 05/10/18 19:50 05/10/18 20:00 05/10/18 20:07 Temperature 96.8 F L Pulse Rate 75 76 Respiratory Rate 12 12 13 Pulse Oximetry 97 97 05/10/18 21:00 05/10/18 22:00 05/10/18 22:40 Temperature Pulse Rate 77 74 Respiratory Rate 12 12 12 Pulse Oximetry 97 97 99 05/10/18 23:00 05/10/18 23:47 05/11/18 00:00 Temperature 96.8 F L Pulse Rate 74 73 74 Respiratory Rate 12 12 12 Pulse Oximetry 99 99 05/11/18 01:00 05/11/18 02:00 05/11/18 02:02 Temperature Pulse Rate 74 74 Respiratory Rate 12 12 12 Pulse Oximetry 99 100 99 05/11/18 03:00 05/11/18 03:54 05/11/18 04:00 Temperature 96.8 F L Pulse Rate 75 74 74 Respiratory Rate 12 13 12 Pulse Oximetry 100 99 05/11/18 04:20 05/11/18 05:00 05/11/18 06:00 Temperature Pulse Rate 74 75 Respiratory Rate 12 12 12 Pulse Oximetry 97 98 98 05/11/18 07:00 05/11/18 08:00 05/11/18 11:00 Temperature Pulse Rate 74 83 Respiratory Rate 12 12 23 Pulse Oximetry 96 05/11/18 11:31 Temperature Pulse Rate Respiratory Rate 23 Pulse Oximetry 96 Intake & Output 05/10/18 05/11/18 05/11/18 18:59 06:59 18:59 Intake Total 1450 / 1450 2921 / 2921 1250 / 1250 Output Total 550 / 550 405 / 405 Balance 900 / 900 2516 / 2516 1250 / 1250 Weight 81.7 kg Intake: IV 1450 / 1450 2605 / 2605 1250 / 1250 Cordarone Inj 450 MG In NS Inj 250 / 250 250 / 250 241 ML @ 1 MG/MIN 33.33 mls/hr IV.CONT TITRATE PRN Rx#: [id number] Nimbex Inj 100 MG In NS Inj 240 175 / 175 ML @ 3.3 MCG/KG/MIN 40.41 mls/ hr IV.CONT TITRATE PRN Rx#: [id number] Versed Inj 50 mg In 50 ml @ 2 50 / 50 MG/HR 2 mls/hr IV.CONT TITRATE PRN Rx#:[id number] Diprivan 1000 mg/100 ml Inj 1, 100 / 100 100 / 100 000 mg In 100 ml @ 5 MCG/KG/MIN 2.449 mls/hr IV.CONT TITRATE PRN Rx#:[id number] NS Inj 1,000 ML @ 84 mls/hr IV. 1000 / 1000 1000 / 1000 1000 / 1000 CONT .[id number] [facility] Rx#:[id number] Magnesium Sulfate Inj 1 GM In 100 / 100 NS Inj 98 ML @ 100 mls/hr IV. SIG Q1H [facility] Rx#:[id number] Zosyn 4.5 GM Premix 4.5 gm In 300 / 300 100 ml @ 200 mls/hr IV.SIG Q6H [facility] Rx#:[id number] Glycophos Inj 30 MMOL In NS Inj 280 / 280 250 ML @ 40 mls/hr IV.SIG ONCE ONE Rx#:[id number] fentaNYL 10 mcg/mL Premix Drip 500 / 500 2,500 mcg In 250 ml @ 50 MCG/HR 5 mls/hr IV.SIG TITRATE PRN Rx #:[id number] Tube Feeding 216 / 216 Tube Irrigant 100 / 100 Output: Urine Amount (Catheter) 450 / 450 405 / 405 Indwelling Temp Sensing 450 / 450 405 / 405 Catheter Gastric Drainage 100 / 100 Pre-Hospital Orogastric Tube 100 / 100 Other: # Bowel Movements 0 Result Diagrams: 05/11/18 05:08 05/11/18 05:08 Other Results: Microbiology 05/09/18 16:00 Blood - Line Aerobic Blood Culture - Preliminary No growth in 2 days 05/09/18 16:00 Blood - Line Anaerobic Blood Culture - Preliminary No growth in 2 days 05/08/18 21:38 Blood - Peripheral Aerobic Blood Culture - Preliminary No growth in 3 days 05/08/18 21:38 Blood - Peripheral Anaerobic Blood Culture - Preliminary No growth in 3 days 05/08/18 21:33 Blood - Peripheral Aerobic Blood Culture - Preliminary No growth in 3 days 05/08/18 21:33 Blood - Peripheral Anaerobic Blood Culture - Preliminary No growth in 3 days 05/08/18 22:30 Catheterized Urine Urine Culture - Final No growth in 48 hours Imaging: Chest X-Ray 05/08/18 20:43 CONCLUSION: 1. ET tube in good position. 2. Gastric tube side-port is in the lower chest and the tube needs to be advanced at least [address] 05/08/18 20:43 CONCLUSION: 1. Punctate hyperdensity characteristic of hemorrhage in the right mid araseli. 2. No acute findings in the supratentorial brain. . Cervical Spine CT 05/08/18 20:44 CONCLUSION: 1. Moderate degenerative changes at C6-7. 2. Otherwise negative exam. Head MRI 05/10/18 00:00 CONCLUSION: 1. No evidence of acute hemorrhage within the right araseli. 2. No acute infarct, acute hemorrhage, midline shift or extra-axial fluid collection. 3. Mucosal thickening involving the left maxillary sinus, bilateral anterior ethmoid air cells and bilateral sphenoid sinuses. 4. Some fluid within the mastoid air cells bilaterally. Chest X-Ray 05/10/18 06:00 CONCLUSION: Infiltrating the medial right lower lobe or right middle lobe. Infiltrate is increased from the previous study Head MRA 05/10/18 06:52 CONCLUSION: 1. Negative MRA Cow ([place]) non contrast. Chest X-Ray 05/11/18 06:00 CONCLUSION: Bilateral pleural effusions right greater than left. ET tube in good position. Objective Remarks: GENERAL: 63-year-old male currently orotracheally intubated SKIN: cool and dry. HEAD: Atraumatic. Normocephalic. EYES: Pupils equal and round and minimally reactive bilaterally. No scleral icterus. No injection or drainage. ENT: No nasal bleeding or discharge. Mucous membranes pink and moist. NECK: Trachea midline. No JVD. CARDIOVASCULAR: RRR S1, S2. No S4. RESPIRATORY: No accessory muscle use. Clear to auscultation. Breath sounds equal bilaterally. GASTROINTESTINAL: Abdomen soft, non-tender, nondistended. Hepatic and splenic margins not palpable. MUSCULOSKELETAL: Extremities without clubbing, cyanosis, or edema. No obvious deformities. NEUROLOGICAL: Currently on midazolam and fentanyl drips. Positive gag and cough and minimal corneal reflex. Does not withdraw. Assessment and Plan - Assessment and Plan Plan: Neuro/Psych: Rule out anoxic Original CT brain on admission revealed possible 3 mm mid right araseli hemorrhage. Currently midazolam drip at 6 mg an hour and fentanyl drip at 250 mcg an hour for sedation/analgesia while intubated. And propofol drips Daily sedation vacation Goal of RASS -2 Rewarming in a.m. 24 hours post initiation currently 37 C Neurology/Dr. Connor following. EEG completed 05/09 with no epileptic activity. MRI brain revealed left maxillary, bilateral ethmoid and sphenoid sinusitis. MRA brain revealed normal examination. CV Out of hospital cardiac arrest/V. 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 Haile. Discussed today. Okay for carvedilol 3.125 mg twice daily, start aspirin 81 mg daily and heparin drip that he rates an hour. Add enalapril 20 mg daily and atorvastatin 10 mg at night since MRI brain revealed no hemorrhage Originally not candidate for cardiac catheterization due to pontine hemorrhage right mid araseli. This is been changed with MRI/A revealing Troponin elevated 2.86 this a.m. currently elevated at 32. Follow until downward trend 2D echocardiogram revealed EF 30-35%. Ruptured chordae tendon possible involving mitral valve. Continue targeted temperature monitoring with a goal 37 C. Resp: Acute respiratory failurelikely aspiration with right lower lobe infiltrate and altered mental status PRVC ventilation Ventilator bundle Head of bed at 30 degrees Albuterol/ipratropium aerosols every 4 hours with albuterol aerosols every 2 hours as needed dyspnea ABG/chest x-ray in a.m. 05/11 GI: Jevity 1.5 goal 60 cc output currently 30 cc an hour Pantoprazole for GI prophylaxis Docusate serum/senna 1 tablet twice daily for bowel regimen : Orellana catheter placed for accurate I's and O's in a critical patient currently in a paralytic Endo: Acute hyperglycemia Low TSH Currently in insulin drip at 1 units/h to maintain euglycemia TSH was 0.285. Check free T4/total T3 HEME: Leukocytosis Monitor CBC daily. Follow trends. Renal Creatinine currently within normal limits Acute I's and O's Heme monitor urine output: ID: Monitor for signs and symptomatology infection Patient with aspiration. We will start on piperacillin/tazobactam. FEN: Hypophosphatemia Replace electrolytes as clinically indicated MSK: PT evaluate and treat Access -Utilize right femoral Quatro catheter day #4. Prophylaxis - -GI pantoprazole - -DVT -SCD/heparin drip 35 minutes critical care time. Updated at bedside.
[2018-05-11] MEDS: Insulin Detemir Inj 1,000 UNIT/10 ML Vial SQ SCH ×2 (14:53→21:00)
[2018-05-11] MEDS: Midazolam 100 MG/100 ML Inj 100 MG/100 ML BAG IV.CONT PRN (15:55)
[2018-05-11] MEDS: Heparin Drip 25,000 UNIT/250 ML BAG IV.CONT PRN (15:56)
[2018-05-11 19:13] LABS: Anion Gap 7 meq/L (5-15); Blood Urea Nitrogen 10 mg/dL (7-18); Calcium 7.9 mg/dL (8.5-10.1); Carbon Dioxide 27.5 meq/L (21.0-32.0); Chloride 108 meq/L (98-107); Glomerular Filtration Rate Greater Than 89 mL/min (>89); Glucose,Random 175 mg/dL (74-106); Magnesium 1.9 mg/dL (1.5-2.5); Potassium 3.6 meq/L (3.5-5.1); Sodium 142 meq/L (136-145)
[2018-05-11 19:14] LABS: Phosphorus 2.6 mg/dL (2.5-4.9)
[2018-05-11] MEDS: Polyethylene Glycol 3350 17 GM Packet PO SCH (21:00)
[2018-05-11] MEDS ORDERED: Midazolam Inj 5 MG/ML 1 ML Vial ONE (21:26)
[2018-05-11] MEDS ORDERED: Midazolam Inj 5 MG/ML 1 ML Vial IV.PUSH ONE (21:45)
[2018-05-11] MEDS ORDERED: Fosphenytoin Inj 1,000 MGPE in Sodium Chlor 0.9% Inj 50 ML IV.SIG ONE (22:00)
[2018-05-12] MEDS: Oral Hygiene Kit OROPHARYNG SCH ×4 (00:07→16:58)
[2018-05-12] MEDS: fentaNYL 10 mcg/mL Premix Drip 2,500 MCG/250 ML BAG IV.SIG PRN (00:45)
[2018-05-12] MEDS: Insulin NovoLOG Aspart Correctional Sugar Inj SQ SCH ×6 (00:45→20:46)
--- NOTE | 2018-05-12 02:03 | XR ---
EXAM DATE: 05/12/2018 1:50 AM EST AGE/SEX: 63 years / Male INDICATIONS: Shortness of breath, possible pulmonary disease. CLINICAL DATA: This is the patient's subsequent encounter. Patient reports that signs and symptoms h ave been present for 1 week and indicates a pain score of Nonresponsive. MEDICAL/SURGICAL HISTORY: Non-responsive. Non-responsive. COMPARISON: C, CHEST 1V SINGLE AP, 05/11/2018. . FINDINGS: Single AP view the chest. Endotracheal tube, nasogastric tube remain in place. Persistent bilateral h azy pulmonary opacity with lower lung zone predominance right greater than left. No significant inter brenna change. No evidence of pneumothorax. Cardiomediastinal silhouette unchanged. CONCLUSION: No change in bilateral opacity likely representing a combination of mild pulmonary edema/pleural effu sions. Electronically signed by: Herman Monroe MD 05/12/2018 2:01 AM EST
[2018-05-12] MEDS: Amiodarone Inj 450 MG in Sodium Chlor 0.9% Inj 241 ML IV.CONT PRN ×2 (02:13→19:47)
[2018-05-12] MEDS: Piperacil/Tazo 4.5 GM Premix 4.5 GM/100 ML BAG IV.SIG SCH ×4 (04:21→22:20)
[2018-05-12] MEDS: Chlorhexidine Gluconate 2% 1 Pack (2 Cloths) TOPICAL SCH (04:22)
[2018-05-12] MEDS: Artificial Tears Opth Drops 15 ML Bottle EACH EYE SCH ×3 (04:23→20:48)
[2018-05-12 04:53] LABS: Baso # (Auto) 0.1 th/mm3 (0.0-0.2); Baso % (Auto) 0.4 % (0.0-2.0); Eos # (Auto) 0.2 th/mm3 (0.0-0.4); Eos % (Auto) 1.5 % (0.0-4.0); Hematocrit 38.6 % (39.0-51.0); Hemoglobin 12.7 gm/dL (13.0-17.0); Lymph # (Auto) 0.7 th/mm3 (1.0-4.8); Lymph % (Auto) 4.9 % (9.0-44.0); Mean Corpuscular HGB Conc 32.8 % (32.0-36.0); Mean Corpuscular Volume 85.4 fL (80.0-100.0); Mono # (Auto) 0.5 th/mm3 (0.0-0.9); Mono % (Auto) 3.4 % (0.0-8.0); Neut # (Auto) 12.5 th/mm3 (1.8-7.7); Neut % (Auto) 89.8 % (16.0-70.0); Platelet Count 187 th/mm3 (150-450); Red Blood Count 4.52 mil/mm3 (4.50-5.90); Red Cell Distribution Width 14.9 % (11.6-17.2); White Blood Count 13.9 th/mm3 (4.0-11.0)
[2018-05-12 05:16] LABS: Albumin 2.1 g/dL (3.4-5.0); Anion Gap 8 meq/L (5-15); Aspartate Aminotransferase 80 U/L (15-37); Blood Urea Nitrogen 11 mg/dL (7-18); Calcium 7.9 mg/dL (8.5-10.1); Carbon Dioxide 27.2 meq/L (21.0-32.0); Chloride 109 meq/L (98-107); Glomerular Filtration Rate Greater Than 89 mL/min (>89); Glucose,Random 211 mg/dL (74-106); Magnesium 1.8 mg/dL (1.5-2.5); Potassium 3.2 meq/L (3.5-5.1); Sodium 144 meq/L (136-145)
[2018-05-12 05:17] LABS: Alanine Aminotransferase 52 U/L (12-78); Phosphorus 1.7 mg/dL (2.5-4.9)
[2018-05-12 05:22] LABS: Alkaline Phosphatase 60 U/L (45-117); Creatine Kinase 721 U/L (39-308); Total Protein 5.2 g/dL (6.4-8.2)
[2018-05-12 05:40] LABS: CKMB Percent 3.8 % (0.0-4.0); Creatine Kinase MB 27.5 ng/mL (0.5-3.6)
[2018-05-12] MEDS: Fosphenytoin Inj 200 MGPE in Sodium Chlor 0.9% Inj 50 ML IV.SIG SCH ×2 (05:57→13:46)
[2018-05-12] MEDS: Propofol 1000 mg/100 ml Inj 1,000 MG/100 ML BOTTLE IV.CONT PRN ×2 (06:00→09:35)
[2018-05-12] MEDS: Insulin Detemir Inj 1,000 UNIT/10 ML Vial SQ SCH ×2 (08:45→20:48)
[2018-05-12] MEDS: Chlorhexidine 0.12% Oral Kit 15 ML UDC OROPHARYNG SCH ×2 (08:45→20:47)
[2018-05-12] MEDS: Polyethylene Glycol 3350 17 GM Packet PO SCH ×2 (08:45→20:48)
[2018-05-12] MEDS: Senna/Docusate Sodium 8.6/50 MG Tablet PO SCH ×2 (08:45→20:48)
[2018-05-12] MEDS: Sod Chloride 0.9% Inj 1,000 ML IV.CONT SCH ×2 (08:45→21:35)
[2018-05-12] MEDS: Potassium Phosphate 500 MG Soluble Tablet PO PRN (09:35)
[2018-05-12] MEDS: Potassium Chlor 40 mEq Premix 40 MEQ/100 ML PIGGYBACK IV.SIG PRN ×2 (09:35→11:40)
[2018-05-12] MEDS ORDERED: Midazolam Inj 5 MG/ML 1 ML Vial ONE (10:15)
--- NOTE | 2018-05-12 10:26 | P.PNCA ---
Subjective Interval history: Intubated. Sedated. Medications and Allergies Active Medications: Active Medications Acetaminophen (Tylenol) 650 mg PO Q6H PRN PRN Reason: PAIN 1-5 AND/OR FEVER >101F Al Hydroxide/Mg Hydroxide (Milk Of Magnmir Liq) 30 ml PO Q12H PRN PRN Reason: Mild Constipation Albuterol (Albuterol Neb (Prn)) 2.5 mg NEB Q2HR NEB PRN PRN Reason: DYSPNEA Albuterol (Duoneb Neb (Chao)) 1 ampul NEB Q4HR NEB [facility] Last Admin: 05/12/18 07:29 Dose: 1 ampul Artificial Tears (Tears Naturale Opth Drops) 1 drop EACH EYE Q8H [facility] Last Admin: 05/12/18 04:23 Dose: 1 drop Aspirin (Aspirin Chew) 81 mg PO DAILY [facility] Last Admin: 05/12/18 08:45 Dose: 81 mg Atorvastatin Calcium (Lipitor) 10 mg PO HS [facility] Last Admin: 05/11/18 21:00 Dose: 10 mg Bisacodyl (Dulcolax Supp) 10 mg RECTAL DAILY PRN PRN Reason: SEVERE CONSITIPATION Buspirone HCl (Buspar) 15 mg NG/OG BID PRN PRN Reason: SHIVERING Last Admin: 05/11/18 11:25 Dose: 15 mg Carvedilol (Coreg) 3.125 mg PO BID [facility] Last Admin: 05/12/18 08:47 Dose: 3.125 mg Chlorhexidine Gluconate (Peridex 0.12% Oral Kit) 15 ml OROPHARYNG BID@0800, 2000 [facility] Last Admin: 05/12/18 08:45 Dose: 15 ml Chlorhexidine Gluconate (Chlorhexidine 2% Cloth) 3 pack TOPICAL DAILY@0400 [facility] Stop: 05/14/18 03:59 Last Admin: 05/12/18 04:22 Dose: 3 pack Chlorhexidine Gluconate (Chlorhexidine 2% Cloth) 3 pack TOPICAL DAILY@0400 PRN PRN Reason: Extra cloth needed Stop: 05/14/18 03:59 Dextrose (D50w Vial) 50 ml IV.PUSH UNSCH PRN PRN Reason: PER HYPOGLYCEMIA PROTOCOL Enalapril Maleate (Vasotec) 2.5 mg PO DAILY [facility] Last Admin: 05/12/18 08:47 Dose: 2.5 mg Glucagon (Glucagon Inj) 1 mg OTHER PRN PRN PRN Reason: for Hypoglycemia Protocol Hydralazine HCl (Apresoline Inj) 10 mg IV.PUSH Q1H PRN PRN Reason: Sbp>140, Dbp>90 Last Admin: 05/10/18 08:00 Dose: 10 mg Sodium Chloride (Ns Inj) 1,000 mls @ 84 mls/hr IV.CONT .[id number] [facility] Last Admin: 05/12/18 08:45 Dose: 84 mls/hr Propofol (Diprivan 1000 Mg/100 Ml Inj) 1,000 mg in 100 mls @ 2.449 mls/hr IV.CONT TITRATE PRN; Protocol PRN Reason: Per Protocol Last Admin: 05/12/18 09:35 Dose: 40 mcg/kg/min, 19.6 mls/hr Cisatracurium Besylate 100 mg/ (Sodium Chloride) 250 mls @ 40.41 mls/hr IV.CONT TITRATE PRN; Protocol PRN Reason: Per Protocol Last Titration: 05/11/18 00:33 Dose: Infused Fentanyl (Fentanyl 10 Mcg/Ml Premix Drip) 2,500 mcg in 250 mls @ 5 mls/hr IV.SIG TITRATE PRN; Protocol PRN Reason: Per Protocol Last Admin: 05/12/18 00:45 Dose: 50 mcg/hr, 5 mls/hr Norepinephrine Bitartrate 16 (mg/ Sodium Chloride) 250 mls @ 1.87 mls/hr IV.CONT TITRATE PRN; Protocol PRN Reason: See Protocol Last Titration: 05/12/18 00:30 Dose: 3 mcg/min, 2.81 mls/hr Amiodarone HCl 450 mg/ Sodium (Chloride) 250 mls @ 33.33 mls/hr IV.CONT TITRATE PRN; Protocol PRN Reason: Per Protocol Last Admin: 05/12/18 02:13 Dose: 0.5 mg/min, 16.66 mls/hr Heparin Sodium/Dextrose (Heparin/D5w 25,000 U/250 Ml) 25,000 unit in 250 mls @ 0 mls/hr IV.CONT TITRATE PRN; Protocol PRN Reason: Per Protocol Last Admin: 05/11/18 15:56 Dose: 900 units/hr, 9 mls/hr Piperacillin/Tazobactam/Dextrose (Zosyn 4.5 Gm Premix) 4.5 gm in 100 mls @ 200 mls/hr IV.SIG Q6H [facility] Last Infusion: 05/12/18 07:14 Dose: Infused Midazolam HCl (Versed Inj) 100 mg in 100 mls @ 2 mls/hr IV.CONT TITRATE PRN; Protocol PRN Reason: Per Protocol Last Admin: 05/11/18 15:55 Dose: 4 mg/hr, 4 mls/hr Magnesium Sulfate 4 gm/ Sodium (Chloride) 100 mls @ 50 mls/hr IV.SIG UNSCH PRN PRN Reason: For Magnesium 0.9 - 1.1 mg/dL Magnesium Sulfate 2 gm/ Sodium (Chloride) 100 mls @ 50 mls/hr IV.SIG UNSCH PRN PRN Reason: For Magnesium 1.2 - 1.6 mg/dL Potassium Chloride (Kcl 40 Meq Premix Inj) 40 meq in 100 mls @ 25 mls/hr IV.SIG Q2H PRN PRN Reason: For Potassium 2.8 - 3.2 mEq/L Last Admin: 05/12/18 09:35 Dose: 25 mls/hr Potassium Chloride (Kcl 20 Meq Premix Inj) 20 meq in 100 mls @ 50 mls/hr IV.SIG Q2H PRN PRN Reason: For Potassium 3.3 - 3.5 mEq/L Potassium Chloride (Kcl 40 Meq Premix Inj) 40 meq in 100 mls @ 25 mls/hr IV.SIG UNSCH PRN PRN Reason: For Potassium 3.3 - 3.5 mEq/L Potassium Chloride (Kcl 20 Meq Premix Inj) 20 meq in 100 mls @ 50 mls/hr IV.SIG Q2H PRN PRN Reason: For Potassium 2.8 - 3.2 mEq/L Potassium Phosphate 30 mmol/ (Sodium Chloride) 260 mls @ 42 mls/hr IV.SIG UNSCH PRN PRN Reason: SEE LABEL COMMENTS Sodium Phosphate 30 mmol/ (Sodium Chloride) 260 mls @ 42 mls/hr IV.SIG UNSCH PRN PRN Reason: For Phosphorus < 2.5 mg/dL Fosphenytoin Sodium 200 mgpe/ (Sodium Chloride) 54 mls @ 216 mls/hr IV.SIG Q8HR [facility] Last Infusion: 05/12/18 07:14 Dose: Infused Insulin Aspart (Novolog Insulin Correctional Sugar Inj) 0 unit SQ Q4HR [facility]; Protocol Last Admin: 05/12/18 08:47 Dose: 2 unit Insulin Detemir (Levemir Inj) 4 unit SQ BID [facility] Last Admin: 05/12/18 08:45 Dose: 4 unit Labetalol HCl (Trandate Inj) 10 mg IV.PUSH Q1H PRN PRN Reason: Sbp>140, Dbp>90, Hr>65 Last Admin: 05/10/18 14:30 Dose: 10 mg Lactulose (Lactulose Liq) 30 ml PO DAILY PRN PRN Reason: SEVERE CONSITIPATION Lactulose (Lactulose Liq) 30 ml PO BID [facility] Last Admin: 05/12/18 08:44 Dose: 30 ml Lorazepam (Ativan Inj) 1 mg IV.PUSH Q1H PRN PRN Reason: SEE LABEL COMMENTS Lorazepam (Ativan Inj) 2 mg IV.PUSH Q1H PRN PRN Reason: SEIZURE ACTIVITY Magnesium Oxide (Mag-Ox) 800 mg PO UNSCH PRN PRN Reason: For Magnesium 1.2 - 1.6 mg/dL Meperidine HCl (Demerol Inj) 25 mg IV.PUSH Q2H PRN PRN Reason: SHIVERING Last Admin: 05/11/18 11:57 Dose: 25 mg Midazolam HCl (Versed Inj) 2 mg IV.PUSH Q1H PRN PRN Reason: SEE LABEL COMMENTS Last Admin: 05/10/18 14:30 Dose: 2 mg Miscellaneous Medication () 1 each OROPHARYNG 0000,0400,1200,1600 [facility] Last Admin: 05/12/18 04:22 Dose: 1 each Morphine Sulfate (Morphine Inj) 2 mg IV.PUSH Q2H PRN PRN Reason: PAIN SCALE 6 TO 10 Ondansetron HCl (Zofran Inj) 4 mg IV.PUSH Q6H PRN PRN Reason: NAUSEA OR VOMITING Pantoprazole Sodium (Protonix Inj) 40 mg IV.PUSH Q24H [facility] Last Admin: 05/11/18 12:05 Dose: 40 mg Polyethylene Glycol (Miralax) 17 gm PO BID [facility] Last Admin: 05/12/18 08:45 Dose: 17 gm Potassium Bicarb/Potassium Chloride (K-Lyte Cl Eff) 50 meq PO UNSCH PRN PRN Reason: For Potassium 3.3 - 3.5 mEq/L Potassium Phosphate (K-Phos Original) 2,000 mg PO Q4H PRN PRN Reason: Phosphorus Less Than 2.5 mg/dL Last Admin: 05/12/18 09:35 Dose: 2,000 mg Potassium Phosphate (K-Phos Original) 2,000 mg PO UNSCH PRN PRN Reason: SEE LABEL COMMENTS Senna/Docusate Sodium (Lizbeth-Colace) 1 tab PO BID [facility] Last Admin: 05/12/18 08:45 Dose: 1 tab Sennosides (Senokot) 17.2 mg PO Q12H PRN PRN Reason: Moderate Constipation Sodium Chloride (Ns Flush) 2 ml IV.FLUSH BID [facility] Last Admin: 05/12/18 08:45 Dose: 2 ml Sodium Chloride (Ns Flush) 2 ml IV.FLUSH PRN PRN PRN Reason: FLUSH AFTER USING IV ACCESS Terbutaline Sulfate (Brethine Inj) 1 mg SQ UNSCH PRN PRN Reason: For Extravasation Terbutaline Sulfate (Brethine Inj) 1 mg SQ UNSCH PRN PRN Reason: For Extravasation Allergies Allergy/AdvReac Type Severity Reaction Status Date / Time No Known Allergies Allergy Uncoded 02/17/15 12:05 Home Medications Medication Instructions Recorded Confirmed Type No Known Home Medications 05/08/18 05/08/18 History Physical Exam Vital signs: Vital Signs 05/11/18 11:00 05/11/18 11:31 05/11/18 12:00 Temperature 96.4 F L 97.2 F L Pulse Rate 82 91 H Respiratory Rate 20 23 16 Blood Pressure 143/80 H 145/80 H Pulse Oximetry 94 L 96 97 05/11/18 13:00 05/11/18 14:00 05/11/18 15:00 Temperature 97.5 F L 97.9 F 98.2 F Pulse Rate 86 85 82 Respiratory Rate 13 14 12 Blood Pressure 103/60 110/64 108/62 Pulse Oximetry 98 98 98 05/11/18 16:00 05/11/18 16:12 05/11/18 17:00 Temperature 98.1 F 97.9 F Pulse Rate 85 84 Respiratory Rate 12 12 14 Blood Pressure 119/70 127/72 Pulse Oximetry 97 97 97 05/11/18 18:00 05/11/18 19:00 05/11/18 19:30 Temperature 97.9 F Pulse Rate 83 84 Respiratory Rate 14 12 16 Blood Pressure 119/70 Pulse Oximetry 98 98 97 05/11/18 19:50 05/11/18 20:00 05/11/18 21:00 Temperature 98.6 F Pulse Rate 84 84 81 Respiratory Rate 16 12 12 Blood Pressure Pulse Oximetry 98 98 05/11/18 22:00 05/11/18 22:30 05/11/18 23:00 Temperature Pulse Rate 83 78 Respiratory Rate 12 12 12 Blood Pressure Pulse Oximetry 97 96 96 05/11/18 23:31 05/12/18 00:00 05/12/18 01:00 Temperature 98.6 F Pulse Rate 76 76 80 Respiratory Rate 12 Blood Pressure Pulse Oximetry 96 97 05/12/18 01:15 05/12/18 02:00 05/12/18 03:00 Temperature Pulse Rate 91 H 95 H Respiratory Rate 13 12 12 Blood Pressure Pulse Oximetry 97 97 97 05/12/18 03:39 05/12/18 04:00 05/12/18 04:18 Temperature Pulse Rate 76 98 H Respiratory Rate 12 12 13 Blood Pressure Pulse Oximetry 97 97 05/12/18 05:00 05/12/18 06:00 05/12/18 07:29 Temperature Pulse Rate 98 H 95 H 78 Respiratory Rate 12 12 14 Blood Pressure Pulse Oximetry 100 99 98 Intake & Output 05/11/18 05/12/18 05/12/18 18:59 06:59 18:59 Intake Total 2200 / 2200 2714 / 2714 1254 / 1254 Output Total 1999 / 1999 1800 / 1800 Balance 200 / 200 914 / 914 1254 / 1254 Weight 83.6 kg Intake: IV 1800 / 1800 2280 / 2280 1254 / 1254 Cordarone Inj 450 MG In NS Inj 250 / 250 250 / 250 241 ML @ 1 MG/MIN 33.33 mls/hr IV.CONT TITRATE PRN Rx#: [id number] Heparin/D5W 25,000 U/250 mL 25, 250 / 250 000 unit In 250 ml @ Per Protocol IV.CONT TITRATE PRN Rx #:[id number] Versed Inj 100 mg In 100 ml @ 2 100 / 100 MG/HR 2 mls/hr IV.CONT TITRATE PRN Rx#:[id number] Diprivan 1000 mg/100 ml Inj 1, 100 / 100 200 / 200 100 / 100 000 mg In 100 ml @ 5 MCG/KG/MIN 2.449 mls/hr IV.CONT TITRATE PRN Rx#:[id number] NS Inj 1,000 ML @ 84 mls/hr IV. 1000 / 1000 1000 / 1000 1000 / 1000 CONT .[id number] [facility] Rx#:[id number] Cerebyx Inj 200 MGPE In NS Inj 54 / 54 50 ML @ 216 mls/hr IV.SIG Q8HR [facility] Rx#:[id number] Cerebyx Inj 1,000 MGPE In NS 70 / 70 Inj 50 ML @ 210 mls/hr IV.SIG STAT ONE Rx#:[id number] Zosyn 4.5 GM Premix 4.5 gm In 100 / 100 200 / 200 100 / 100 100 ml @ 200 mls/hr IV.SIG Q6H [facility] Rx#:[id number] Potassium Phosphate Inj 30 MMOL 260 / 260 In NS Inj 250 ML @ 43.333 mls/ hr IV.SIG ONCE ONE Rx#:[id number] fentaNYL 10 mcg/mL Premix Drip 250 / 250 2,500 mcg In 250 ml @ 50 MCG/HR 5 mls/hr IV.SIG TITRATE PRN Rx #:[id number] Tube Feeding 340 / 340 334 / 334 Tube Irrigant 100 / 100 Water Bolus Amount 60 / 60 Output: Urine Amount (Catheter) 1999 1800 / 1800 Indwelling Temp Sensing 1999 1800 / 1800 Catheter - Constitutional Comments: Intubated. Sedated. - Routine Neck Exam Absent: JVD - Routine Respiratory Exam Present: CTA bilaterally - Routine Cardiovascular Exam Present: RRR, S1, S2. Absent: murmur, gallop - Routine Abdominal Exam Present: soft, normoactive bowel sounds. Absent: organomegaly - Routine Extremities Exam Absent: cyanosis, clubbing, edema - Urinary Catheter Management Indwelling Temp Sensing Catheter Cath placed during this visit: yes Reason for continuing: Other continuation reason Insertion date: 05/08/18 Insertion time: 22:40 Results 05/12/18 04:45 05/12/18 04:45 Cardiac Enzymes 05/11/18 05/12/18 Range/Units 05:08 04:45 AST 125 H 80 H (15-37) U/L CK-MB (CK-2) 123.3 H 27.5 H (0.5-3.6) ng/mL Troponin I 31.30 H* 16.00 H* (0.02-0.05) ng/mL Coagulation 05/10/18 05/10/18 05/11/18 Range/Units 16:10 22:15 05:08 PT 11.6 (9.8-11.6) sec APTT 32.3 H 74.1 H D 63.4 H (23.4-31.7) sec 05/12/18 Range/Units 07:00 PT (9.8-11.6) sec APTT 62.0 H (23.4-31.7) sec CBC 05/11/18 05/12/18 Range/Units 05:08 04:45 WBC 14.2 H 13.9 H (4.0-11.0) th/mm3 RBC 4.75 4.52 (4.50-5.90) mil/mm3 Hgb 13.4 12.7 L (13.0-17.0) gm/dL Hct 40.7 38.6 L (39.0-51.0) % Plt Count 180 187 (150-450) th/mm3 Neut # (Auto) 12.6 H 12.5 H (1.8-7.7) th/mm3 Lymph # (Auto) 0.9 L 0.7 L (1.0-4.8) th/mm3 [place] # (Auto) 0.5 0.5 (0.0-0.9) th/mm3 Eos # (Auto) 0.1 0.2 (0.0-0.4) th/mm3 Baso # (Auto) 0.0 0.1 (0.0-0.2) th/mm3 Comprehensive Metabolic Panel 05/10/18 05/11/18 05/11/18 Range/Units 15:55 05:08 18:24 Sodium 142 145 142 (136-145) meq/L Potassium 4.2 D 3.4 L D 3.6 (3.5-5.1) meq/L Chloride 111 H 113 H 108 H (98-107) meq/L Carbon Dioxide 21.2 26.1 27.5 (21.0-32.0) meq/L BUN 11 11 10 (7-18) mg/dL Creatinine 0.67 0.57 L 0.67 (0.60-1.30) mg/dL Calcium 8.0 L 7.7 L 7.9 L (8.5-10.1) mg/dL AST 125 H (15-37) U/L ALT 69 (12-78) U/L Alkaline Phosphatase 55 (45-117) U/L Total Protein 5.2 L D (6.4-8.2) g/dL Albumin 2.5 L D (3.4-5.0) g/dL 05/12/18 Range/Units 04:45 Sodium 144 (136-145) meq/L Potassium 3.2 L (3.5-5.1) meq/L Chloride 109 H (98-107) meq/L Carbon Dioxide 27.2 (21.0-32.0) meq/L BUN 11 (7-18) mg/dL Creatinine 0.69 (0.60-1.30) mg/dL Calcium 7.9 L (8.5-10.1) mg/dL AST 80 H (15-37) U/L ALT 52 (12-78) U/L Alkaline Phosphatase 60 (45-117) U/L Total Protein 5.2 L (6.4-8.2) g/dL Albumin 2.1 L (3.4-5.0) g/dL Intake and Output 05/11/18 05/12/18 05/12/18 22:59 06:59 14:59 Intake Total 2510 / 2510 1054 / 1054 1254 / 1254 Output Total 1999 / 1999 1800 / 1800 Balance 510 / 510 -746 / -746 1254 / 1254 Intake: IV 0 / 2110 620 / 620 1254 / 1254 Cordarone Inj 450 MG In NS Inj 250 / 250 241 ML @ 1 MG/MIN 33.33 mls/hr IV.CONT TITRATE PRN Rx#: [id number] Heparin/D5W 25,000 U/250 mL 25, 250 / 250 000 unit In 250 ml @ Per Protocol IV.CONT TITRATE PRN Rx #:[id number] Versed Inj 100 mg In 100 ml @ 2 100 / 100 MG/HR 2 mls/hr IV.CONT TITRATE PRN Rx#:[id number] Diprivan 1000 mg/100 ml Inj 1, 100 / 100 200 / 200 100 / 100 000 mg In 100 ml @ 5 MCG/KG/MIN 2.449 mls/hr IV.CONT TITRATE PRN Rx#:[id number] NS Inj 1,000 ML @ 84 mls/hr IV. 1000 / 1000 1000 / 1000 CONT .[id number] [facility] Rx#:[id number] Cerebyx Inj 200 MGPE In NS Inj 54 / 54 50 ML @ 216 mls/hr IV.SIG Q8HR [facility] Rx#:[id number] Cerebyx Inj 1,000 MGPE In NS 70 / 70 Inj 50 ML @ 210 mls/hr IV.SIG STAT ONE Rx#:[id number] Zosyn 4.5 GM Premix 4.5 gm In 100 / 100 100 / 100 100 / 100 100 ml @ 200 mls/hr IV.SIG Q6H [facility] Rx#:[id number] Potassium Phosphate Inj 30 MMOL 260 / 260 In NS Inj 250 ML @ 43.333 mls/ hr IV.SIG ONCE ONE Rx#:[id number] fentaNYL 10 mcg/mL Premix Drip 250 / 250 2,500 mcg In 250 ml @ 50 MCG/HR 5 mls/hr IV.SIG TITRATE PRN Rx #:[id number] Tube Feeding 340 / 340 334 / 334 Tube Irrigant 100 / 100 Water Bolus Amount 60 / 60 Output: Urine Amount (Catheter) 1999 1800 / 1800 Indwelling Temp Sensing 1999 1800 / 1800 Catheter Other: Weight 83.6 kg - Imaging and Cardiology Imaging: Impressions Head MRI 05/10/18 00:00 CONCLUSION: 1. No evidence of acute hemorrhage within the right araseli. 2. No acute infarct, acute hemorrhage, midline shift or extra-axial fluid collection. 3. Mucosal thickening involving the left maxillary sinus, bilateral anterior ethmoid air cells and bilateral sphenoid sinuses. 4. Some fluid within the mastoid air cells bilaterally. Head MRA 05/10/18 06:52 CONCLUSION: 1. Negative MRA [place] ([place] [facility] [place]) non contrast. Chest X-Ray 05/11/18 06:00 CONCLUSION: Bilateral pleural effusions right greater than left. ET tube in good position. Chest X-Ray 05/12/18 06:00 CONCLUSION: No change in bilateral opacity likely representing a combination of mild pulmonary edema/pleural effusions. Assessment and Plan - Assessment (1) ST elevation (STEMI) myocardial infarction involving left anterior descending coronary artery Code(s): I21.02 - ST elevation (STEMI) myocardial infarction involving left anterior descending coronary artery Status: Acute Plan: Overall remains hemodynamically stable. Echo suggests patient sustained large LAD coronary territory infarction, EF now 30%. Recommend conservative management unless he neurologically recovers. Continue MAURILIO-I, aspirin, heparin drip, beta eleuterio. (2) Cardiac arrest Code(s): I46.9 - Cardiac arrest, cause unspecified Status: Acute Plan: No further ventricular tachyarrhythmias. Continue Amiodarone drip for now. Consider ICD implant if he neurologically recovers. (3) Ischemic cardiomyopathy Code(s): I25.5 - Ischemic cardiomyopathy Status: Acute Plan: EF ~30% by echo. Probable CHF by chest x-ray. Recommend mild diuresis, continue MAURILIO-I, beta eleuterio. - Plan Code Status: full code Discussed Condition With: nurse
--- NOTE | 2018-05-12 10:35 | P.PNNEU ---
Subjective Subjective Comments: noted to have some twitching this am, eeg showed sz discharges Active Medications: Active Medications Acetaminophen (Tylenol) 650 mg PO Q6H PRN PRN Reason: PAIN 1-5 AND/OR FEVER >101F Al Hydroxide/Mg Hydroxide (Milk Of Magnmir Liq) 30 ml PO Q12H PRN PRN Reason: Mild Constipation Albuterol (Albuterol Neb (Prn)) 2.5 mg NEB Q2HR NEB PRN PRN Reason: DYSPNEA Albuterol (Duoneb Neb ([facility])) 1 ampul NEB Q4HR NEB [facility] Last Admin: 05/12/18 07:29 Dose: 1 ampul Artificial Tears (Tears Naturale Opth Drops) 1 drop EACH EYE Q8H [facility] Last Admin: 05/12/18 04:23 Dose: 1 drop Aspirin (Aspirin Chew) 81 mg PO DAILY [facility] Last Admin: 05/12/18 08:45 Dose: 81 mg Atorvastatin Calcium (Lipitor) 10 mg PO HS [facility] Last Admin: 05/11/18 21:00 Dose: 10 mg Bisacodyl (Dulcolax Supp) 10 mg RECTAL DAILY PRN PRN Reason: SEVERE CONSITIPATION Buspirone HCl (Buspar) 15 mg NG/OG BID PRN PRN Reason: SHIVERING Last Admin: 05/11/18 11:25 Dose: 15 mg Carvedilol (Coreg) 3.125 mg PO BID [facility] Last Admin: 05/12/18 08:47 Dose: 3.125 mg Chlorhexidine Gluconate (Peridex 0.12% Oral Kit) 15 ml OROPHARYNG BID@0800, 2000 [facility] Last Admin: 05/12/18 08:45 Dose: 15 ml Chlorhexidine Gluconate (Chlorhexidine 2% Cloth) 3 pack TOPICAL DAILY@0400 [facility] Stop: 05/14/18 03:59 Last Admin: 05/12/18 04:22 Dose: 3 pack Chlorhexidine Gluconate (Chlorhexidine 2% Cloth) 3 pack TOPICAL DAILY@0400 PRN PRN Reason: Extra cloth needed Stop: 05/14/18 03:59 Dextrose (D50w Vial) 50 ml IV.PUSH UNSCH PRN PRN Reason: PER HYPOGLYCEMIA PROTOCOL Enalapril Maleate (Vasotec) 2.5 mg PO DAILY [facility] Last Admin: 05/12/18 08:47 Dose: 2.5 mg Furosemide (Lasix Inj) 40 mg IV.PUSH DAILY [facility] Glucagon (Glucagon Inj) 1 mg OTHER PRN PRN PRN Reason: for Hypoglycemia Protocol Hydralazine HCl (Apresoline Inj) 10 mg IV.PUSH Q1H PRN PRN Reason: Sbp>140, Dbp>90 Last Admin: 05/10/18 08:00 Dose: 10 mg Sodium Chloride (Ns Inj) 1,000 mls @ 84 mls/hr IV.CONT .[id number] [facility] Last Admin: 05/12/18 08:45 Dose: 84 mls/hr Propofol (Diprivan 1000 Mg/100 Ml Inj) 1,000 mg in 100 mls @ 2.449 mls/hr IV.CONT TITRATE PRN; Protocol PRN Reason: Per Protocol Last Admin: 05/12/18 09:35 Dose: 40 mcg/kg/min, 19.6 mls/hr Cisatracurium Besylate 100 mg/ (Sodium Chloride) 250 mls @ 40.41 mls/hr IV.CONT TITRATE PRN; Protocol PRN Reason: Per Protocol Last Titration: 05/11/18 00:33 Dose: Infused Fentanyl (Fentanyl 10 Mcg/Ml Premix Drip) 2,500 mcg in 250 mls @ 5 mls/hr IV.SIG TITRATE PRN; Protocol PRN Reason: Per Protocol Last Admin: 05/12/18 00:45 Dose: 50 mcg/hr, 5 mls/hr Norepinephrine Bitartrate 16 (mg/ Sodium Chloride) 250 mls @ 1.87 mls/hr IV.CONT TITRATE PRN; Protocol PRN Reason: See Protocol Last Titration: 05/12/18 00:30 Dose: 3 mcg/min, 2.81 mls/hr Amiodarone HCl 450 mg/ Sodium (Chloride) 250 mls @ 33.33 mls/hr IV.CONT TITRATE PRN; Protocol PRN Reason: Per Protocol Last Admin: 05/12/18 02:13 Dose: 0.5 mg/min, 16.66 mls/hr Heparin Sodium/Dextrose (Heparin/D5w 25,000 U/250 Ml) 25,000 unit in 250 mls @ 0 mls/hr IV.CONT TITRATE PRN; Protocol PRN Reason: Per Protocol Last Admin: 05/11/18 15:56 Dose: 900 units/hr, 9 mls/hr Piperacillin/Tazobactam/Dextrose (Zosyn 4.5 Gm Premix) 4.5 gm in 100 mls @ 200 mls/hr IV.SIG Q6H [facility] Last Infusion: 05/12/18 07:14 Dose: Infused Midazolam HCl (Versed Inj) 100 mg in 100 mls @ 2 mls/hr IV.CONT TITRATE PRN; Protocol PRN Reason: Per Protocol Last Admin: 05/11/18 15:55 Dose: 4 mg/hr, 4 mls/hr Magnesium Sulfate 4 gm/ Sodium (Chloride) 100 mls @ 50 mls/hr IV.SIG UNSCH PRN PRN Reason: For Magnesium 0.9 - 1.1 mg/dL Magnesium Sulfate 2 gm/ Sodium (Chloride) 100 mls @ 50 mls/hr IV.SIG UNSCH PRN PRN Reason: For Magnesium 1.2 - 1.6 mg/dL Potassium Chloride (Kcl 40 Meq Premix Inj) 40 meq in 100 mls @ 25 mls/hr IV.SIG Q2H PRN PRN Reason: For Potassium 2.8 - 3.2 mEq/L Last Admin: 05/12/18 09:35 Dose: 25 mls/hr Potassium Chloride (Kcl 20 Meq Premix Inj) 20 meq in 100 mls @ 50 mls/hr IV.SIG Q2H PRN PRN Reason: For Potassium 3.3 - 3.5 mEq/L Potassium Chloride (Kcl 40 Meq Premix Inj) 40 meq in 100 mls @ 25 mls/hr IV.SIG UNSCH PRN PRN Reason: For Potassium 3.3 - 3.5 mEq/L Potassium Chloride (Kcl 20 Meq Premix Inj) 20 meq in 100 mls @ 50 mls/hr IV.SIG Q2H PRN PRN Reason: For Potassium 2.8 - 3.2 mEq/L Potassium Phosphate 30 mmol/ (Sodium Chloride) 260 mls @ 42 mls/hr IV.SIG UNSCH PRN PRN Reason: SEE LABEL COMMENTS Sodium Phosphate 30 mmol/ (Sodium Chloride) 260 mls @ 42 mls/hr IV.SIG UNSCH PRN PRN Reason: For Phosphorus < 2.5 mg/dL Fosphenytoin Sodium 200 mgpe/ (Sodium Chloride) 54 mls @ 216 mls/hr IV.SIG Q8HR JIM Last Infusion: 05/12/18 07:14 Dose: Infused Levetiracetam 500 mg/ Sodium (Chloride) 105 mls @ 400 mls/hr IV.SIG Q12H [facility] Potassium Phosphate 30 mmol/ (Sodium Chloride) 260 mls @ 43.333 mls/hr IV.SIG ONCE ONE Stop: 05/12/18 16:24 Insulin Aspart (Novolog Insulin Correctional Sugar Inj) 0 unit SQ Q4HR [facility]; Protocol Last Admin: 05/12/18 08:47 Dose: 2 unit Insulin Detemir (Levemir Inj) 4 unit SQ BID [facility] Last Admin: 05/12/18 08:45 Dose: 4 unit Labetalol HCl (Trandate Inj) 10 mg IV.PUSH Q1H PRN PRN Reason: Sbp>140, Dbp>90, Hr>65 Last Admin: 05/10/18 14:30 Dose: 10 mg Lactulose (Lactulose Liq) 30 ml PO DAILY PRN PRN Reason: SEVERE CONSITIPATION Lactulose (Lactulose Liq) 30 ml PO BID [facility] Last Admin: 05/12/18 08:44 Dose: 30 ml Levetiracetam (Keppra Inj) 1,000 mg IV.SIG ONCE ONE Stop: 05/12/18 11:01 Lorazepam (Ativan Inj) 1 mg IV.PUSH Q1H PRN PRN Reason: SEE LABEL COMMENTS Lorazepam (Ativan Inj) 2 mg IV.PUSH Q1H PRN PRN Reason: SEIZURE ACTIVITY Magnesium Oxide (Mag-Ox) 800 mg PO UNSCH PRN PRN Reason: For Magnesium 1.2 - 1.6 mg/dL Meperidine HCl (Demerol Inj) 25 mg IV.PUSH Q2H PRN PRN Reason: SHIVERING Last Admin: 05/11/18 11:57 Dose: 25 mg Midazolam HCl (Versed Inj) 2 mg IV.PUSH Q1H PRN PRN Reason: SEE LABEL COMMENTS Last Admin: 05/10/18 14:30 Dose: 2 mg Midazolam HCl (Versed Inj) 5 mg IV.PUSH ONCE ONE Stop: 05/12/18 10:23 Miscellaneous Medication () 1 each OROPHARYNG 0000,0400,1200,1600 [facility] Last Admin: 05/12/18 04:22 Dose: 1 each Morphine Sulfate (Morphine Inj) 2 mg IV.PUSH Q2H PRN PRN Reason: PAIN SCALE 6 TO 10 Ondansetron HCl (Zofran Inj) 4 mg IV.PUSH Q6H PRN PRN Reason: NAUSEA OR VOMITING Pantoprazole Sodium (Protonix Inj) 40 mg IV.PUSH Q24H [facility] Last Admin: 05/11/18 12:05 Dose: 40 mg Polyethylene Glycol (Miralax) 17 gm PO BID [facility] Last Admin: 05/12/18 08:45 Dose: 17 gm Potassium Bicarb/Potassium Chloride (K-Lyte Cl Eff) 50 meq PO UNSCH PRN PRN Reason: For Potassium 3.3 - 3.5 mEq/L Potassium Phosphate (K-Phos Original) 2,000 mg PO Q4H PRN PRN Reason: Phosphorus Less Than 2.5 mg/dL Last Admin: 05/12/18 09:35 Dose: 2,000 mg Potassium Phosphate (K-Phos Original) 2,000 mg PO UNSCH PRN PRN Reason: SEE LABEL COMMENTS Senna/Docusate Sodium (Lizbeth-Colace) 1 tab PO BID [facility] Last Admin: 05/12/18 08:45 Dose: 1 tab Sennosides (Senokot) 17.2 mg PO Q12H PRN PRN Reason: Moderate Constipation Sodium Chloride (Ns Flush) 2 ml IV.FLUSH BID [facility] Last Admin: 05/12/18 08:45 Dose: 2 ml Sodium Chloride (Ns Flush) 2 ml IV.FLUSH PRN PRN PRN Reason: FLUSH AFTER USING IV ACCESS Terbutaline Sulfate (Brethine Inj) 1 mg SQ UNSCH PRN PRN Reason: For Extravasation Terbutaline Sulfate (Brethine Inj) 1 mg SQ UNSCH PRN PRN Reason: For Extravasation Allergies/Adverse Reactions: Allergies Allergy/AdvReac Type Severity Reaction Status Date / Time No Known Allergies Allergy Uncoded 02/17/15 12:05 Review of Systems All other systems reviewed negative except as stated in HPI Physical Exam Vital signs: Vital Signs 05/11/18 11:00 05/11/18 11:31 05/11/18 12:00 Temperature 96.4 F L 97.2 F L Pulse Rate 82 91 H Respiratory Rate 20 23 16 Blood Pressure 143/80 H 145/80 H Pulse Oximetry 94 L 96 97 05/11/18 13:00 05/11/18 14:00 05/11/18 15:00 Temperature 97.5 F L 97.9 F 98.2 F Pulse Rate 86 85 82 Respiratory Rate 13 14 12 Blood Pressure 103/60 110/64 108/62 Pulse Oximetry 98 98 98 05/11/18 16:00 05/11/18 16:12 05/11/18 17:00 Temperature 98.1 F 97.9 F Pulse Rate 85 84 Respiratory Rate 12 12 14 Blood Pressure 119/70 127/72 Pulse Oximetry 97 97 97 05/11/18 18:00 05/11/18 19:00 05/11/18 19:30 Temperature 97.9 F Pulse Rate 83 84 Respiratory Rate 14 12 16 Blood Pressure 119/70 Pulse Oximetry 98 98 97 05/11/18 19:50 05/11/18 20:00 05/11/18 21:00 Temperature 98.6 F Pulse Rate 84 84 81 Respiratory Rate 16 12 12 Blood Pressure Pulse Oximetry 98 98 05/11/18 22:00 05/11/18 22:30 05/11/18 23:00 Temperature Pulse Rate 83 78 Respiratory Rate 12 12 12 Blood Pressure Pulse Oximetry 97 96 96 05/11/18 23:31 05/12/18 00:00 05/12/18 01:00 Temperature 98.6 F Pulse Rate 76 76 80 Respiratory Rate 12 Blood Pressure Pulse Oximetry 96 97 05/12/18 01:15 05/12/18 02:00 05/12/18 03:00 Temperature Pulse Rate 91 H 95 H Respiratory Rate 13 12 12 Blood Pressure Pulse Oximetry 97 97 97 05/12/18 03:39 05/12/18 04:00 05/12/18 04:18 Temperature Pulse Rate 76 98 H Respiratory Rate 12 12 13 Blood Pressure Pulse Oximetry 97 97 05/12/18 05:00 05/12/18 06:00 05/12/18 07:29 Temperature Pulse Rate 98 H 95 H 78 Respiratory Rate 12 12 14 Blood Pressure Pulse Oximetry 100 99 98 Intake & Output 05/11/18 05/12/18 05/12/18 18:59 06:59 18:59 Intake Total 2200 / 2200 2714 / 2714 1254 / 1254 Output Total 1999 1800 / 1800 Balance 200 / 200 914 / 914 1254 / 1254 Weight 83.6 kg Intake: IV 1800 / 1800 2280 / 2280 1254 / 1254 Cordarone Inj 450 MG In NS Inj 250 / 250 250 / 250 241 ML @ 1 MG/MIN 33.33 mls/hr IV.CONT TITRATE PRN Rx#: [id number] Heparin/D5W 25,000 U/250 mL 25, 250 / 250 000 unit In 250 ml @ Per Protocol IV.CONT TITRATE PRN Rx #:[id number] Versed Inj 100 mg In 100 ml @ 2 100 / 100 MG/HR 2 mls/hr IV.CONT TITRATE PRN Rx#:[id number] Diprivan 1000 mg/100 ml Inj 1, 100 / 100 200 / 200 100 / 100 000 mg In 100 ml @ 5 MCG/KG/MIN 2.449 mls/hr IV.CONT TITRATE PRN Rx#:[id number] NS Inj 1,000 ML @ 84 mls/hr IV. 1000 / 1000 1000 / 1000 1000 / 1000 CONT .[id number] JIM Rx#:[id number] Cerebyx Inj 200 MGPE In NS Inj 54 / 54 50 ML @ 216 mls/hr IV.SIG Q8HR JIM Rx#:[id number] Cerebyx Inj 1,000 MGPE In NS 70 / 70 Inj 50 ML @ 210 mls/hr IV.SIG STAT ONE Rx#:[id number] Zosyn 4.5 GM Premix 4.5 gm In 100 / 100 200 / 200 100 / 100 100 ml @ 200 mls/hr IV.SIG Q6H [facility] Rx#:[id number] Potassium Phosphate Inj 30 MMOL 260 / 260 In NS Inj 250 ML @ 43.333 mls/ hr IV.SIG ONCE ONE Rx#:[id number] fentaNYL 10 mcg/mL Premix Drip 250 / 250 2,500 mcg In 250 ml @ 50 MCG/HR 5 mls/hr IV.SIG TITRATE PRN Rx #:[id number] Tube Feeding 340 / 340 334 / 334 Tube Irrigant 100 / 100 Water Bolus Amount 60 / 60 Output: Urine Amount (Catheter) 1999 Indwelling Temp Sensing 1999 1800 / 1799 Catheter Narrative: GENERAL: in NAD, SKIN: Warm and dry. HEAD: Atraumatic. Normocephalic. ENT: Intubated RESPIRATORY: Intubated GASTROINTESTINAL: Abdomen soft, non-tender, nondistended. MUSCULOSKELETAL: Extremities without clubbing, cyanosis, or edema. No obvious deformities. NEUROLOGICAL: Intubated sedated on Demadex, propofol, Versed. Comatose nonverbal not following. Pinpoint pupils; blink, corneal reflex on the right greater than left, no current blink to threat no involuntary movements no drooling extremity PSYCHIATRIC: Intubated - Constitutional no acute distress - Routine HEENT Exam Head: Present: normocephalic - Urinary Catheter Management Indwelling Temp Sensing Catheter Cath placed during this visit: yes Reason for continuing: Other continuation reason Insertion date: 05/08/18 Insertion time: 22:40 Objective Laboratory Results - last 24 hr 05/11/18 05/11/18 05/11/18 11:12 16:01 18:24 WBC RBC Hgb Hct MCV MCH MCHC RDW Plt Count MPV Neut % (Auto) Lymph % (Auto) [place] % (Auto) Eos % (Auto) Baso % (Auto) Neut # (Auto) Lymph # (Auto) [place] # (Auto) Eos # (Auto) Baso # (Auto) WBC Differential Differential Comment APTT Sodium 142 Potassium 3.6 Chloride 108 H Carbon Dioxide 27.5 Anion Gap 7 BUN 10 Creatinine 0.67 Estimated GFR Greater than 89 POC Glucose 162 H 169 H Random Glucose 175 H Calcium 7.9 L Phosphorus 2.6 Magnesium 1.9 Total Bilirubin AST ALT Alkaline Phosphatase Ammonia Total Creatine Kinase CK-MB (CK-2) CK-MB (CK-2) % Troponin I Total Protein Albumin 05/11/18 05/12/18 05/12/18 20:44 00:42 04:18 WBC RBC Hgb Hct MCV MCH MCHC RDW Plt Count MPV Neut % (Auto) Lymph % (Auto) [place] % (Auto) Eos % (Auto) Baso % (Auto) Neut # (Auto) Lymph # (Auto) [place] # (Auto) Eos # (Auto) Baso # (Auto) WBC Differential Differential Comment APTT Sodium Potassium Chloride Carbon Dioxide Anion Gap BUN Creatinine Estimated GFR POC Glucose 188 H 131 H 163 H Random Glucose Calcium Phosphorus Magnesium Total Bilirubin AST ALT Alkaline Phosphatase Ammonia Total Creatine Kinase CK-MB (CK-2) CK-MB (CK-2) % Troponin I Total Protein Albumin 05/12/18 05/12/18 05/12/18 04:45 04:45 04:45 WBC 13.9 H RBC 4.52 Hgb 12.7 L Hct 38.6 L MCV 85.4 MCH 28.0 MCHC 32.8 RDW 14.9 Plt Count 187 MPV 8.0 Neut % (Auto) 89.8 H Lymph % (Auto) 4.9 L [place] % (Auto) 3.4 Eos % (Auto) 1.5 Baso % (Auto) 0.4 Neut # (Auto) 12.5 H Lymph # (Auto) 0.7 L [place] # (Auto) 0.5 Eos # (Auto) 0.2 Baso # (Auto) 0.1 WBC Differential . Differential Comment Auto diff final APTT Sodium 144 Potassium 3.2 L Chloride 109 H Carbon Dioxide 27.2 Anion Gap 8 BUN 11 Creatinine 0.69 Estimated GFR Greater than 89 POC Glucose Random Glucose 211 H Calcium 7.9 L Phosphorus 1.7 L Magnesium 1.8 Total Bilirubin 0.5 AST 80 H ALT 52 Alkaline Phosphatase 60 Ammonia 17 Total Creatine Kinase 721 H CK-MB (CK-2) 27.5 H CK-MB (CK-2) % 3.8 Troponin I 16.00 H* Total Protein 5.2 L Albumin 2.1 L 05/12/18 05/12/18 07:00 08:12 WBC RBC Hgb Hct MCV MCH MCHC RDW Plt Count MPV Neut % (Auto) Lymph % (Auto) [place] % (Auto) Eos % (Auto) Baso % (Auto) Neut # (Auto) Lymph # (Auto) [place] # (Auto) Eos # (Auto) Baso # (Auto) WBC Differential Differential Comment APTT 62.0 H Sodium Potassium Chloride Carbon Dioxide Anion Gap BUN Creatinine Estimated GFR POC Glucose 184 H Random Glucose Calcium Phosphorus Magnesium Total Bilirubin AST ALT Alkaline Phosphatase Ammonia Total Creatine Kinase CK-MB (CK-2) CK-MB (CK-2) % Troponin I Total Protein Albumin Microbiology 05/09/18 16:00 Aerobic Blood Culture - Preliminary Blood - Line No growth in 2 days Anaerobic Blood Culture - Preliminary No growth in 2 days 05/08/18 21:38 Aerobic Blood Culture - Preliminary Blood - Peripheral No growth in 3 days Anaerobic Blood Culture - Preliminary No growth in 3 days 05/08/18 21:33 Aerobic Blood Culture - Preliminary Blood - Peripheral No growth in 3 days Anaerobic Blood Culture - Preliminary No growth in 3 days Review/Management - Diagnosis (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 fib arrest underlying code cool post-anoxic seizure on eeg MRI brain reviewed. No pontine hemorrhage. No diffusion restriction noted on DWI images. On heparin drip Recommendation add iv cerebryx, phb Discussed with ccm
[2018-05-12] MEDS ORDERED: Midazolam Inj 5 MG/ML 1 ML Vial IV.PUSH ONE (11:00)
[2018-05-12] MEDS ORDERED: levETIRAcetam 1000mg/100mL Inj 100 ML IV.SIG ONE (11:00)
--- NOTE | 2018-05-12 11:05 | P.PCN ---
Date of procedure: 05/12/18 Pre-op diagnosis: Acute respiratory failure/multiple medications Post-op diagnosis: same Procedure: DATE: 05/12/2018 CENTRAL LINE PLACEMENT: Left internal jugular vein vein. Ultrasound-guided Left INDICATION: Central venous access CONSENT Informed consent for procedure was obtained from . DESCRIPTION OF THE PROCEDURE The patient was placed in supine position. The skin was cleansed with Chloraprep. Additional barrier precautions included large sterile drape, sterile gloves, sterile gown, face mask, and hat. 1 % lidocaine was used for local anesthesia. Under direct ultrasound guidance and on initial attempt, the vein was accessed with an introducer needle. The guide wire was advanced and the tract was dilated. Using Seldinger technique a 7 Divehi 20 cm antimicrobial coated triple-lumen catheter was advanced to a depth of 20 centimeters. The guide wire was removed. All ports had good return of dark venous blood and flushed easily with saline. The central line was secured with 2.0 silk. A sterile dressing with antibiotic disc was applied. StatLock do not adhere to skin. ESTIMATED BLOOD LOSS: Minimal COMPLICATIONS: No apparent complications. STAT chest x-ray pending at time of dictation.
--- NOTE | 2018-05-12 11:39 | XR ---
EXAM DATE: 05/12/2018 11:32 AM EST AGE/SEX: 63 years / Male INDICATIONS: Evaluate central line placement. CLINICAL DATA: This is the patient's subsequent encounter. Patient reports that signs and symptoms h ave been present for 4 - 6 days and indicates a pain score of Nonresponsive. MEDICAL/SURGICAL HISTORY: None. None. COMPARISON: [facility] [place]ST 1V SINGLE AP, 05/12/2018. . FINDINGS: A single AP view of the chest demonstrates interval placement of a left internal jugular vein central venous line. The tip is within the SVC near the azygos confluence. No pneumothorax. Bilateral pleura l effusions and bibasilar pulmonary infiltrates are unchanged. Heart is normal in size. Tip the endot rashaad tube 1 cm from the fannie. Nasogastric tube with the tip coursing off the inferior margin of the film. CONCLUSION: 1. Central line without pneumothorax. 2. Unchanged bilateral pleural effusions and bibasilar pulmonary infiltrates. Electronically signed by: Ritesh Tse MD 05/12/2018 11:38 AM EST
[2018-05-12] MEDS ORDERED: Potassium Phosphate Inj 30 MMOL in Sodium Chlor 0.9% Inj 250 ML IV.SIG ONE (12:00)
[2018-05-12 12:33] LABS: Phosphorus 1.8 mg/dL (2.5-4.9)
[2018-05-12 12:34] LABS: Phenytoin (Dilantin) 10.4 mcg/mL (10.0-20.0)
[2018-05-12] MEDS: Pantoprazole Inj 40 MG Vial IV.PUSH SCH (12:49)
[2018-05-12] MEDS ORDERED: PHENobarbital Inj 130 MG/ML Vial IV.PUSH SCH (14:00)
[2018-05-12] MEDS ORDERED: Etomidate Inj 40 MG/20 ML Vial IV.PUSH ONE (14:24)
[2018-05-12] MEDS ORDERED: Succinylcholine Inj 200 MG/10 ML Vial ONE (14:29)
[2018-05-12] MEDS: Acetaminophen 325 MG Tablet PO PRN (14:56)
[2018-05-12] MEDS ORDERED: Methylnaltrexone Inj 12 MG/0.6 ML Vial SQ ONE (17:38)
[2018-05-12] MEDS ORDERED: Glycerin Adult 2 GM Supp RECTAL ONE (17:39)
--- NOTE | 2018-05-12 17:42 | P.PNCC ---
Subjective Subjective Remarks/Hospital Course: 63-year-old male presents to emergency department intubated after VF/VT arrest. He had to be defibrillated twice in the field, afterwards clear STEMI criteria was called by [facility]. Apparently heard a collapse in the next room found the patient unresponsive called 9 1. Apparently total downtime was about 10 minutes and had a very quick Rask. Blood pressure was little low and dopamine drip was started in the field. Patient also had amiodarone started in the field. Initially the STEMI alert was called brain demonstrated punctate hyperdensity characteristic of hemorrhage in the right mid araseli in the STEMI alert was canceled. The patient has been admitted to ICU for hypothermia protocol treatment post cardiac arrest. 05/09: Discussed with at bedside. Currently on target temperature monitoring. EEG performed. Replacing potassium and phosphorus this a.m. 05/10: Currently temperature is a 97. Has been rewarmed from target temperature monitoring. EEG revealed no epileptic activity. Replace potassium currently. MRI brain revealed no signs of hemorrhage. Will start on heparin drip CT protocol 900 units an hour and provide aspirin. Carvedilol started by cardiology during the a.m. 05/11: Phosphorus being replaced. Weaning off sedation currently. Rewarmed to 37 C. No problem. Tolerating tube feeds currently at 30 cc now. Subjective: 05/12: Currently resting in bed. New central has been placed and targeted temperature monitoring Quatro catheter has been removed. Seizures overnight. Currently on fosphenytoin and levetiracetam. Remains on midazolam drip. Updated at bedside. Objective Vital Signs / I&O: Vital Signs 05/11/18 18:00 05/11/18 19:00 05/11/18 19:30 Temperature 97.9 F Pulse Rate 83 84 Respiratory Rate 14 12 16 Blood Pressure 119/70 Pulse Oximetry 98 98 97 05/11/18 19:50 05/11/18 20:00 05/11/18 21:00 Temperature 98.6 F Pulse Rate 84 84 81 Respiratory Rate 16 12 12 Blood Pressure Pulse Oximetry 98 98 05/11/18 22:00 05/11/18 22:30 05/11/18 23:00 Temperature Pulse Rate 83 78 Respiratory Rate 12 12 12 Blood Pressure Pulse Oximetry 97 96 96 05/11/18 23:31 05/12/18 00:00 05/12/18 01:00 Temperature 98.6 F Pulse Rate 76 76 80 Respiratory Rate 12 Blood Pressure Pulse Oximetry 96 97 05/12/18 01:15 05/12/18 02:00 05/12/18 03:00 Temperature Pulse Rate 91 H 95 H Respiratory Rate 13 12 12 Blood Pressure Pulse Oximetry 97 97 97 05/12/18 03:39 05/12/18 04:00 05/12/18 04:18 Temperature Pulse Rate 76 98 H Respiratory Rate 12 12 13 Blood Pressure Pulse Oximetry 97 97 05/12/18 05:00 05/12/18 06:00 05/12/18 07:29 Temperature Pulse Rate 98 H 95 H 78 Respiratory Rate 12 12 14 Blood Pressure Pulse Oximetry 100 99 98 05/12/18 08:00 05/12/18 09:00 05/12/18 10:37 Temperature 98.6 F Pulse Rate 109 H 83 78 Respiratory Rate 17 14 Blood Pressure Pulse Oximetry 100 05/12/18 11:12 05/12/18 12:00 05/12/18 15:47 Temperature 98.6 F Pulse Rate 88 81 Respiratory Rate 14 17 14 Blood Pressure Pulse Oximetry 98 98 05/12/18 16:00 05/12/18 16:31 Temperature 100.2 F H Pulse Rate 80 Respiratory Rate 17 16 Blood Pressure 117/64 Pulse Oximetry 100 99 Intake & Output 05/11/18 05/12/18 05/12/18 18:59 06:59 18:59 Intake Total 2200 / 2200 2714 / 2714 1808 / 1808 Output Total 1999 / 1999 1800 / 1800 Balance 200 / 200 914 / 914 1808 / 1808 Weight 83.6 kg Intake: IV 1800 / 1800 2280 / 2280 1808 / 1808 Cordarone Inj 450 MG In NS Inj 250 / 250 250 / 250 241 ML @ 1 MG/MIN 33.33 mls/hr IV.CONT TITRATE PRN Rx#: [id number] Heparin/D5W 25,000 U/250 mL 25, 250 / 250 000 unit In 250 ml @ Per Protocol IV.CONT TITRATE PRN Rx #:[id number] Versed Inj 100 mg In 100 ml @ 2 100 / 100 MG/HR 2 mls/hr IV.CONT TITRATE PRN Rx#:[id number] Diprivan 1000 mg/100 ml Inj 1, 100 / 100 200 / 200 100 / 100 000 mg In 100 ml @ 5 MCG/KG/MIN 2.449 mls/hr IV.CONT TITRATE PRN Rx#:[id number] NS Inj 1,000 ML @ 84 mls/hr IV. 1000 / 1000 1000 / 1000 1000 / 1000 CONT .[id number] [facility] Rx#:[id number] Cerebyx Inj 200 MGPE In NS Inj 108 / 108 50 ML @ 216 mls/hr IV.SIG Q8HR [facility] Rx#:[id number] Cerebyx Inj 1,000 MGPE In NS 70 / 70 Inj 50 ML @ 210 mls/hr IV.SIG STAT ONE Rx#:[id number] Zosyn 4.5 GM Premix 4.5 gm In 100 / 100 200 / 200 300 / 300 100 ml @ 200 mls/hr IV.SIG Q6H [facility] Rx#:[id number] KCl 40 mEq Premix Inj 40 meq In 200 / 200 100 ml @ 25 mls/hr IV.SIG Q2H PRN Rx#:[id number] Potassium Phosphate Inj 30 MMOL 260 / 260 In NS Inj 250 ML @ 43.333 mls/ hr IV.SIG ONCE ONE Rx#:[id number] fentaNYL 10 mcg/mL Premix Drip 250 / 250 2,500 mcg In 250 ml @ 50 MCG/HR 5 mls/hr IV.SIG TITRATE PRN Rx #:[id number] Keppra 1000 mg/100 mL Premix 100 / 100 100 ML @ 400 mls/hr IV.SIG ONCE ONE Rx#:[id number] Tube Feeding 340 / 340 334 / 334 Tube Irrigant 100 / 100 Water Bolus Amount 60 / 60 Output: Urine Amount (Catheter) 1999 1800 Indwelling Temp Sensing 1999 Catheter Result Diagrams: 05/12/18 04:45 05/12/18 04:45 Other Results: Microbiology 05/09/18 16:00 Blood - Line Aerobic Blood Culture - Preliminary No growth in 3 days 05/09/18 16:00 Blood - Line Anaerobic Blood Culture - Preliminary No growth in 3 days 05/08/18 21:38 Blood - Peripheral Aerobic Blood Culture - Preliminary No growth in 4 days 05/08/18 21:38 Blood - Peripheral Anaerobic Blood Culture - Preliminary No growth in 4 days 05/08/18 21:33 Blood - Peripheral Aerobic Blood Culture - Preliminary No growth in 4 days 05/08/18 21:33 Blood - Peripheral Anaerobic Blood Culture - Preliminary No growth in 4 days 05/08/18 22:30 Catheterized Urine Urine Culture - Final No growth in 48 hours Imaging: Chest X-Ray 05/08/18 20:43 CONCLUSION: 1. ET tube in good position. 2. Gastric tube side-port is in the lower chest and the tube needs to be advanced at least [address] 05/08/18 20:43 CONCLUSION: 1. Punctate hyperdensity characteristic of hemorrhage in the right mid araseli. 2. No acute findings in the supratentorial brain. . Cervical Spine CT 05/08/18 20:44 CONCLUSION: 1. Moderate degenerative changes at C6-7. 2. Otherwise negative exam. Head MRI 05/10/18 00:00 CONCLUSION: 1. No evidence of acute hemorrhage within the right araseli. 2. No acute infarct, acute hemorrhage, midline shift or extra-axial fluid collection. 3. Mucosal thickening involving the left maxillary sinus, bilateral anterior ethmoid air cells and bilateral sphenoid sinuses. 4. Some fluid within the mastoid air cells bilaterally. Chest X-Ray 05/10/18 06:00 CONCLUSION: Infiltrating the medial right lower lobe or right middle lobe. Infiltrate is increased from the previous study Head MRA 05/10/18 06:52 CONCLUSION: 1. Negative MRA [place] ([place]) non contrast. Chest X-Ray 05/11/18 06:00 CONCLUSION: Bilateral pleural effusions right greater than left. ET tube in good position. Chest X-Ray 05/12/18 06:00 CONCLUSION: No change in bilateral opacity likely representing a combination of mild pulmonary edema/pleural effusions. Chest X-Ray 05/12/18 11:03 CONCLUSION: 1. Central line without pneumothorax. 2. Unchanged bilateral pleural effusions and bibasilar pulmonary infiltrates. Objective Remarks: GENERAL: 63-year-old male currently orotracheally intubated SKIN: cool and dry. HEAD: Atraumatic. Normocephalic. EYES: Pupils equal and round and minimally reactive bilaterally. No scleral icterus. No injection or drainage. ENT: No nasal bleeding or discharge. Mucous membranes pink and moist. NECK: Trachea midline. No JVD. Left IJ is clean dry and intact. CARDIOVASCULAR: RRR S1, S2. No S4. RESPIRATORY: No accessory muscle use. Clear to auscultation. Breath sounds equal bilaterally. GASTROINTESTINAL: Abdomen soft, non-tender, nondistended. Hepatic and splenic margins not palpable. MUSCULOSKELETAL: Extremities without clubbing, cyanosis, or edema. No obvious deformities. NEUROLOGICAL: Currently on midazolam and fentanyl drips. Positive gag and cough and minimal corneal reflex. Does not withdraw. Assessment and Plan - Assessment and Plan Plan: Neuro/Psych: Rule out anoxic Original CT brain on admission revealed possible 3 mm mid right araseli hemorrhage. Currently midazolam drip at 3 mg an hour and fentanyl drip at 250 mcg an hour for sedation/analgesia while intubated. And propofol drips Daily sedation vacation Goal of RASS -2 Rewarming in a.m. 24 hours post initiation currently 37 C. Catheter removed . Neurology/Dr. Connor following. EEG completed 05/09 with no epileptic activity. Repeat 05/12 with sharp activity. Will repeat 05/13. Currently on fosphenytoin IV 3 times daily and levetiracetam 500 mg IV twice daily and phenobarbital 60 mg 3 times daily. Check fosphenytoin and phenobarbital level in a.m. 05/13 MRI brain revealed left maxillary, bilateral ethmoid and sphenoid sinusitis. MRA brain revealed normal examination. CV Out of hospital cardiac arrest/V. 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 Haile. Discussed today. Okay for carvedilol 3.125 mg twice daily, start aspirin 81 mg daily and heparin drip that he rates an hour. Add enalapril 20 mg daily and atorvastatin 10 mg at night since MRI brain revealed no hemorrhage Originally not candidate for cardiac catheterization due to pontine hemorrhage right mid araseli. This is been changed with MRI/A revealing Troponin elevated 2.86 this a.m. currently elevated at 32. Follow until downward trend 2D echocardiogram revealed EF 30-35%. Ruptured chordae tendon possible involving mitral valve. Complete targeted temperature monitoring with a goal 37 C. Resp: Acute respiratory failurelikely aspiration with right lower lobe infiltrate and altered mental status PRVC ventilation Ventilator bundle Head of bed at 30 degrees Albuterol/ipratropium aerosols every 4 hours with albuterol aerosols every 2 hours as needed dyspnea ABG/chest x-ray in a.m. 05/13 GI: Vital 1.5 goal 60 cc output currently 60 cc an hour Pantoprazole for GI prophylaxis Docusate serum/senna 1 tablet twice daily for bowel regimen : Orellana catheter placed for accurate I's and O's in a critical patient currentl Endo: Acute hyperglycemia Low TSH Sliding scale insulin with Accu-Cheks to maintain euglycemia. On insulin detemir 4 units twice daily TSH was 0.285. Normal free T4/total T3. Recheck 4-6-week HEME: Leukocytosis Monitor CBC daily. Follow trends. Renal Creatinine currently within normal limits Acute I's and O's Heme monitor urine output: ID: Monitor for signs and symptomatology infection Patient with aspiration. We will start on piperacillin/tazobactam. FEN: Hypophosphatemia HypoK+ Replace electrolytes as clinically indicated MSK: PT evaluate and treat Access -Utilize right femoral Quatro catheter day #5. Prophylaxis - -GI pantoprazole - -DVT -SCD/heparin drip 35 minutes critical care time. Updated at bedside.
[2018-05-12] MEDS ORDERED: Magnesium Sulfate Inj 2 GM in Sodium Chlor 0.9% Inj 96 ML IV.SIG ONE (18:00)
--- NOTE | 2018-05-12 19:50 | MG ---
cc: Sravan Garcia MD [id number] Intubated. Fentanyl, Diprivan, which was turned off. A burst suppression pattern in the past, status post code. BuSpar Versed, fentanyl, fosphenytoin, Demerol. FINDINGS: Diffuse 4-5 Hz rhythms are noted, but there are some bifrontal sharply-contoured waves which look like semi-triphasic occurring, such as at epoch 16. Other times, some sharp slow waves occur, such as at epoch 20 bilaterally. This is not a burst suppression pattern at this time. What would qualify as some spike slow waves are noted at epoch 39, fairly diffuse. Photic stimulation is performed without significant posterior driving. IMPRESSION: Some epileptiform features. Some metabolic features, some diffuse encephalopathy, moderate to moderately severe, but overall the recording is synchronous and symmetric. Sravan Garcia MD DJM/ll , 06:59 PM , 07:03 PM
[2018-05-12] MEDS: Fosphenytoin Inj 100 MGPE in Sodium Chlor 0.9% Inj 50 ML IV.SIG SCH (21:36)
[2018-05-13] MEDS: Insulin NovoLOG Aspart Correctional Sugar Inj SQ SCH ×6 (00:01→20:52)
[2018-05-13] MEDS: Oral Hygiene Kit OROPHARYNG SCH ×4 (00:01→16:32)
[2018-05-13 00:22] LABS: Potassium 3.7 meq/L (3.5-5.1)
[2018-05-13 00:27] LABS: Phosphorus 2.3 mg/dL (2.5-4.9)
[2018-05-13] MEDS: Midazolam 100 MG/100 ML Inj 100 MG/100 ML BAG IV.CONT PRN ×2 (02:34→20:54)
[2018-05-13] MEDS: Propofol 1000 mg/100 ml Inj 1,000 MG/100 ML BOTTLE IV.CONT PRN (02:38)
[2018-05-13] MEDS: Potassium Phosphate 500 MG Soluble Tablet PO PRN ×2 (03:47→09:56)
--- NOTE | 2018-05-13 04:23 | XR ---
EXAM DATE: 05/13/2018 4:15 AM EST AGE/SEX: 63 years / Male INDICATIONS: Respiratory failure. CLINICAL DATA: This is the patient's subsequent encounter. Patient reports that signs and symptoms h ave been present for 4 - 6 days and indicates a pain score of Nonresponsive. MEDICAL/SURGICAL HISTORY: Seizures. . Central line. COMPARISON: [facility], CHEST 1V SINGLE AP, 05/12/2018. . FINDINGS: 2 AP views of the chest. Endotracheal tube, nasogastric tube, left IJ central venous catheter remain in place. Hazy bilateral pulmonary opacity with superimposed left lower lobe consolidation versus ate lectasis and small bilateral pleural effusions unchanged. No evidence of pneumothorax. Cardiomediasti nal silhouette unchanged. CONCLUSION: No significant interval change with persistent bilateral pulmonary parenchymal opacity and small bila teral pleural effusions. Electronically signed by: Herman Monroe MD 05/13/2018 4:22 AM EST
[2018-05-13] MEDS: Artificial Tears Opth Drops 15 ML Bottle EACH EYE SCH ×2 (04:37→12:04)
[2018-05-13] MEDS: Piperacil/Tazo 4.5 GM Premix 4.5 GM/100 ML BAG IV.SIG SCH ×3 (04:37→16:32)
[2018-05-13] MEDS: Chlorhexidine Gluconate 2% 1 Pack (2 Cloths) TOPICAL SCH (04:38)
[2018-05-13 04:54] LABS: Baso # (Auto) 0.1 th/mm3 (0.0-0.2); Baso % (Auto) 0.3 % (0.0-2.0); Eos # (Auto) 0.1 th/mm3 (0.0-0.4); Eos % (Auto) 0.8 % (0.0-4.0); Hematocrit 37.5 % (39.0-51.0); Hemoglobin 12.7 gm/dL (13.0-17.0); Lymph # (Auto) 0.7 th/mm3 (1.0-4.8); Lymph % (Auto) 4.8 % (9.0-44.0); Mean Corpuscular HGB Conc 33.8 % (32.0-36.0); Mean Corpuscular Hemoglobin 28.5 pg (27.0-34.0); Mean Corpuscular Volume 84.5 fL (80.0-100.0); Mean Platelet Volume 8.7 fL (7.0-11.0); Mono # (Auto) 0.7 th/mm3 (0.0-0.9); Mono % (Auto) 4.8 % (0.0-8.0); Neut # (Auto) 13.9 th/mm3 (1.8-7.7); Neut % (Auto) 89.3 % (16.0-70.0); Platelet Count 220 th/mm3 (150-450); Red Blood Count 4.44 mil/mm3 (4.50-5.90); White Blood Count 15.6 th/mm3 (4.0-11.0)
[2018-05-13 05:17] LABS: Alanine Aminotransferase 51 U/L (12-78); Anion Gap 6 meq/L (5-15); Aspartate Aminotransferase 67 U/L (15-37); Blood Urea Nitrogen 15 mg/dL (7-18); Calcium 8.1 mg/dL (8.5-10.1); Carbon Dioxide 29.9 meq/L (21.0-32.0); Chloride 109 meq/L (98-107); Glomerular Filtration Rate Greater Than 89 mL/min (>89); Glucose,Random 257 mg/dL (74-106); Magnesium 2.2 mg/dL (1.5-2.5); Potassium 3.9 meq/L (3.5-5.1); Sodium 145 meq/L (136-145)
[2018-05-13 05:21] LABS: Alkaline Phosphatase 85 U/L (45-117); Phenytoin (Dilantin) 12.7 mcg/mL (10.0-20.0); Phosphorus 2.1 mg/dL (2.5-4.9); Total Protein 5.5 g/dL (6.4-8.2)
[2018-05-13] MEDS: Fosphenytoin Inj 100 MGPE in Sodium Chlor 0.9% Inj 50 ML IV.SIG SCH ×2 (06:03→13:56)
[2018-05-13] MEDS: Heparin Drip 25,000 UNIT/250 ML BAG IV.CONT PRN (06:31)
[2018-05-13 07:23] LABS: ABG Base Excess 1.2 mmol/L (-2-2); ABG PCO2 35 mmHg (38-42); ABG PO2 123 mmHG (61-120)
--- NOTE | 2018-05-13 07:44 | P.PNNEU ---
Subjective Subjective Comments: no acute events Active Medications: Active Medications Acetaminophen (Tylenol) 650 mg PO Q6H PRN PRN Reason: PAIN 1-5 AND/OR FEVER >101F Last Admin: 05/12/18 14:56 Dose: 650 mg Al Hydroxide/Mg Hydroxide (Milk Of Magnmir Liq) 30 ml PO Q12H PRN PRN Reason: Mild Constipation Albuterol (Albuterol Neb (Prn)) 2.5 mg NEB Q2HR NEB PRN PRN Reason: DYSPNEA Albuterol (Duoneb Neb ([facility])) 1 ampul NEB Q4HR NEB [facility] Last Admin: 05/13/18 03:56 Dose: 1 ampul Artificial Tears (Tears Naturale Opth Drops) 1 drop EACH EYE Q8H [facility] Last Admin: 05/13/18 04:37 Dose: 1 drop Aspirin (Aspirin Chew) 81 mg PO DAILY [facility] Last Admin: 05/12/18 08:45 Dose: 81 mg Atorvastatin Calcium (Lipitor) 10 mg PO HS [facility] Last Admin: 05/12/18 20:48 Dose: 10 mg Bisacodyl (Dulcolax Supp) 10 mg RECTAL DAILY PRN PRN Reason: SEVERE CONSITIPATION Carvedilol (Coreg) 3.125 mg PO BID [facility] Last Admin: 05/12/18 20:47 Dose: 3.125 mg Chlorhexidine Gluconate (Peridex 0.12% Oral Kit) 15 ml OROPHARYNG BID@0800, 2000 [facility] Last Admin: 05/12/18 20:47 Dose: 15 ml Chlorhexidine Gluconate (Chlorhexidine 2% Cloth) 3 pack TOPICAL DAILY@0400 [facility] Stop: 05/14/18 03:59 Last Admin: 05/13/18 04:38 Dose: 3 pack Chlorhexidine Gluconate (Chlorhexidine 2% Cloth) 3 pack TOPICAL DAILY@0400 PRN PRN Reason: Extra cloth needed Stop: 05/14/18 03:59 Dextrose (D50w Vial) 50 ml IV.PUSH UNSCH PRN PRN Reason: PER HYPOGLYCEMIA PROTOCOL Enalapril Maleate (Vasotec) 2.5 mg PO DAILY [facility] Last Admin: 05/12/18 08:47 Dose: 2.5 mg Furosemide (Lasix Inj) 40 mg IV.PUSH DAILY [facility] Last Admin: 05/12/18 12:49 Dose: 40 mg Glucagon (Glucagon Inj) 1 mg OTHER PRN PRN PRN Reason: for Hypoglycemia Protocol Hydralazine HCl (Apresoline Inj) 10 mg IV.PUSH Q1H PRN PRN Reason: Sbp>140, Dbp>90 Last Admin: 05/10/18 08:00 Dose: 10 mg Sodium Chloride (Ns Inj) 1,000 mls @ 84 mls/hr IV.CONT .[id number] [facility] Last Admin: 05/12/18 21:35 Dose: 84 mls/hr Propofol (Diprivan 1000 Mg/100 Ml Inj) 1,000 mg in 100 mls @ 2.449 mls/hr IV.CONT TITRATE PRN; Protocol PRN Reason: Per Protocol Last Admin: 05/13/18 02:38 Dose: 10 mcg/kg/min, 4.9 mls/hr Fentanyl (Fentanyl 10 Mcg/Ml Premix Drip) 2,500 mcg in 250 mls @ 5 mls/hr IV.SIG TITRATE PRN; Protocol PRN Reason: Per Protocol Last Admin: 05/12/18 00:45 Dose: 50 mcg/hr, 5 mls/hr Norepinephrine Bitartrate 16 (mg/ Sodium Chloride) 250 mls @ 1.87 mls/hr IV.CONT TITRATE PRN; Protocol PRN Reason: See Protocol Last Titration: 05/12/18 00:30 Dose: 3 mcg/min, 2.81 mls/hr Amiodarone HCl 450 mg/ Sodium (Chloride) 250 mls @ 33.33 mls/hr IV.CONT TITRATE PRN; Protocol PRN Reason: Per Protocol Last Admin: 05/12/18 19:47 Dose: 0.5 mg/min, 16.66 mls/hr Heparin Sodium/Dextrose (Heparin/D5w 25,000 U/250 Ml) 25,000 unit in 250 mls @ 0 mls/hr IV.CONT TITRATE PRN; Protocol PRN Reason: Per Protocol Last Admin: 05/13/18 06:31 Dose: 900 units/hr, 9 mls/hr Piperacillin/Tazobactam/Dextrose (Zosyn 4.5 Gm Premix) 4.5 gm in 100 mls @ 200 mls/hr IV.SIG Q6H [facility] Last Infusion: 05/13/18 05:19 Dose: Infused Midazolam HCl (Versed Inj) 100 mg in 100 mls @ 2 mls/hr IV.CONT TITRATE PRN; Protocol PRN Reason: Per Protocol Last Titration: 05/13/18 02:34 Dose: Infused Magnesium Sulfate 4 gm/ Sodium (Chloride) 100 mls @ 50 mls/hr IV.SIG UNSCH PRN PRN Reason: For Magnesium 0.9 - 1.1 mg/dL Magnesium Sulfate 2 gm/ Sodium (Chloride) 100 mls @ 50 mls/hr IV.SIG UNSCH PRN PRN Reason: For Magnesium 1.2 - 1.6 mg/dL Potassium Chloride (Kcl 40 Meq Premix Inj) 40 meq in 100 mls @ 25 mls/hr IV.SIG Q2H PRN PRN Reason: For Potassium 2.8 - 3.2 mEq/L Last Infusion: 05/12/18 14:09 Dose: Infused Potassium Chloride (Kcl 20 Meq Premix Inj) 20 meq in 100 mls @ 50 mls/hr IV.SIG Q2H PRN PRN Reason: For Potassium 3.3 - 3.5 mEq/L Potassium Chloride (Kcl 40 Meq Premix Inj) 40 meq in 100 mls @ 25 mls/hr IV.SIG UNSCH PRN PRN Reason: For Potassium 3.3 - 3.5 mEq/L Potassium Chloride (Kcl 20 Meq Premix Inj) 20 meq in 100 mls @ 50 mls/hr IV.SIG Q2H PRN PRN Reason: For Potassium 2.8 - 3.2 mEq/L Potassium Phosphate 30 mmol/ (Sodium Chloride) 260 mls @ 42 mls/hr IV.SIG UNSCH PRN PRN Reason: SEE LABEL COMMENTS Sodium Phosphate 30 mmol/ (Sodium Chloride) 260 mls @ 42 mls/hr IV.SIG UNSCH PRN PRN Reason: For Phosphorus < 2.5 mg/dL Levetiracetam 500 mg/ Sodium (Chloride) 105 mls @ 400 mls/hr IV.SIG Q12H JIM Last Infusion: 05/12/18 22:43 Dose: Infused Fosphenytoin Sodium 100 mgpe/ (Sodium Chloride) 52 mls @ 208 mls/hr IV.SIG Q8HR JIM Last Admin: 05/13/18 06:03 Dose: 208 mls/hr Insulin Aspart (Novolog Insulin Correctional Sugar Inj) 0 unit SQ Q4HR JIM; Protocol Last Admin: 05/13/18 04:37 Dose: 4 unit Insulin Detemir (Levemir Inj) 4 unit SQ BID [facility] Last Admin: 05/12/18 20:48 Dose: 4 unit Labetalol HCl (Trandate Inj) 10 mg IV.PUSH Q1H PRN PRN Reason: Sbp>140, Dbp>90, Hr>65 Last Admin: 05/10/18 14:30 Dose: 10 mg Lactulose (Lactulose Liq) 30 ml PO DAILY PRN PRN Reason: SEVERE CONSITIPATION Lactulose (Lactulose Liq) 30 ml PO BID [facility] Last Admin: 05/12/18 20:47 Dose: 30 ml Lorazepam (Ativan Inj) 1 mg IV.PUSH Q1H PRN PRN Reason: SEE LABEL COMMENTS Lorazepam (Ativan Inj) 2 mg IV.PUSH Q1H PRN PRN Reason: SEIZURE ACTIVITY Magnesium Oxide (Mag-Ox) 800 mg PO UNSCH PRN PRN Reason: For Magnesium 1.2 - 1.6 mg/dL Midazolam HCl (Versed Inj) 2 mg IV.PUSH Q1H PRN PRN Reason: SEE LABEL COMMENTS Last Admin: 05/10/18 14:30 Dose: 2 mg Miscellaneous Medication () 1 each OROPHARYNG 0000,0400,1200,1600 [facility] Last Admin: 05/13/18 04:37 Dose: 1 each Morphine Sulfate (Morphine Inj) 2 mg IV.PUSH Q2H PRN PRN Reason: PAIN SCALE 6 TO 10 Ondansetron HCl (Zofran Inj) 4 mg IV.PUSH Q6H PRN PRN Reason: NAUSEA OR VOMITING Pantoprazole Sodium (Protonix Inj) 40 mg IV.PUSH Q24H [facility] Last Admin: 05/12/18 12:49 Dose: 40 mg Phenobarbital Sodium (Luminal Inj) 60 mg IV.PUSH Q8HR [facility] Last Admin: 05/13/18 06:03 Dose: 60 mg Polyethylene Glycol (Miralax) 17 gm PO BID [facility] Last Admin: 05/12/18 20:48 Dose: 17 gm Potassium Bicarb/Potassium Chloride (K-Lyte Cl Eff) 50 meq PO UNSCH PRN PRN Reason: For Potassium 3.3 - 3.5 mEq/L Potassium Phosphate (K-Phos Original) 2,000 mg PO Q4H PRN PRN Reason: Phosphorus Less Than 2.5 mg/dL Last Admin: 05/13/18 03:47 Dose: 2,000 mg Potassium Phosphate (K-Phos Original) 2,000 mg PO UNSCH PRN PRN Reason: SEE LABEL COMMENTS Senna/Docusate Sodium (Lizbeth-Colace) 1 tab PO BID [facility] Last Admin: 05/12/18 20:48 Dose: 1 tab Sennosides (Senokot) 17.2 mg PO Q12H PRN PRN Reason: Moderate Constipation Sodium Chloride (Ns Flush) 2 ml IV.FLUSH BID [facility] Last Admin: 05/12/18 20:48 Dose: 2 ml Sodium Chloride (Ns Flush) 2 ml IV.FLUSH PRN PRN PRN Reason: FLUSH AFTER USING IV ACCESS Sodium Chloride (Ns Flush) 0 ml IV.FLUSH DAILY [facility] Terbutaline Sulfate (Brethine Inj) 1 mg SQ UNSCH PRN PRN Reason: For Extravasation Allergies/Adverse Reactions: Allergies Allergy/AdvReac Type Severity Reaction Status Date / Time No Known Allergies Allergy Uncoded 02/17/15 12:05 Review of Systems unobtainable due to endotracheal tube, unobtainable due to mental condition Physical Exam Vital signs: Vital Signs 05/12/18 08:00 05/12/18 09:00 05/12/18 10:37 Temperature 98.6 F Pulse Rate 109 H 83 78 Respiratory Rate 17 14 Blood Pressure Pulse Oximetry 100 05/12/18 11:12 05/12/18 12:00 05/12/18 15:47 Temperature 98.6 F Pulse Rate 88 81 Respiratory Rate 14 17 14 Blood Pressure Pulse Oximetry 98 98 05/12/18 16:00 05/12/18 16:31 05/12/18 20:00 Temperature 100.2 F H 100.2 F H Pulse Rate 80 90 Respiratory Rate 17 16 16 Blood Pressure 117/64 127/68 Pulse Oximetry 100 99 97 05/12/18 20:09 05/12/18 22:00 05/12/18 23:40 Temperature Pulse Rate 90 86 83 Respiratory Rate 20 15 Blood Pressure Pulse Oximetry 98 97 05/13/18 00:00 05/13/18 03:57 05/13/18 04:00 Temperature 99.9 F H 99.9 F H Pulse Rate 83 77 76 Respiratory Rate 15 15 14 Blood Pressure 117/69 126/75 Pulse Oximetry 97 97 05/13/18 04:21 Temperature Pulse Rate Respiratory Rate 17 Blood Pressure Pulse Oximetry 98 Intake & Output 05/12/18 05/13/18 05/13/18 18:59 06:59 18:59 Intake Total 2751 / 2751 2697 / 2697 Output Total 3700 / 3700 1100 / 1100 Balance -949 / -949 1597 / 1597 Weight 83.5 kg Intake: IV 2158 / 2158 1907 / 1907 Cordarone Inj 450 MG In NS Inj 250 / 250 241 ML @ 1 MG/MIN 33.33 mls/hr IV.CONT TITRATE PRN Rx#: [id number] Heparin/D5W 25,000 U/250 mL 25, 250 / 250 000 unit In 250 ml @ Per Protocol IV.CONT TITRATE PRN Rx #:[id number] Versed Inj 100 mg In 100 ml @ 2 100 / 100 100 / 100 MG/HR 2 mls/hr IV.CONT TITRATE PRN Rx#:[id number] Diprivan 1000 mg/100 ml Inj 1, 100 / 100 100 / 100 000 mg In 100 ml @ 5 MCG/KG/MIN 2.449 mls/hr IV.CONT TITRATE PRN Rx#:[id number] NS Inj 1,000 ML @ 84 mls/hr IV. 1000 / 1000 1000 / 1000 CONT .[id number] JIM Rx#:[id number] Cerebyx Inj 100 MGPE In NS Inj 108 / 108 52 / 52 50 ML @ 208 mls/hr IV.SIG Q8HR JIM Rx#:[id number] Magnesium Sulfate Inj 2 GM In 100 / 100 NS Inj 96 ML @ 50 mls/hr IV.SIG ONCE ONE Rx#:[id number] Zosyn 4.5 GM Premix 4.5 gm In 300 / 300 200 / 200 100 ml @ 200 mls/hr IV.SIG Q6H JIM Rx#:[id number] KCl 40 mEq Premix Inj 40 meq In 200 / 200 100 ml @ 25 mls/hr IV.SIG Q2H PRN Rx#:[id number] Keppra 1000 mg/100 mL Premix 100 / 100 100 ML @ 400 mls/hr IV.SIG ONCE ONE Rx#:[id number] Keppra Inj 500 MG In NS Inj 100 105 / 105 ML @ 400 mls/hr IV.SIG Q12H JIM Rx#:[id number] Tube Feeding 593 / 593 550 / 550 Water Bolus Amount 240 / 240 Output: Urine 1100 / 1100 Urine Amount (Catheter) 3700 / 3700 Indwelling Temp Sensing 3700 / 3700 Catheter Other: Date of Last Bowel Movement 05/13/18 # Bowel Movements 0 # Incontinent Bowel Movements 1 Narrative: GENERAL: in NAD, SKIN: Warm and dry. HEAD: Atraumatic. Normocephalic. ENT: Intubated RESPIRATORY: Intubated GASTROINTESTINAL: Abdomen soft, non-tender, nondistended. MUSCULOSKELETAL: Extremities without clubbing, cyanosis, or edema. No obvious deformities. NEUROLOGICAL: Intubated. sedation stopped recently, deep stupor, not following, not trying to verbalize, ou approx 3mm reactive, +corneal reflex and spontaneous blinks to tactile, no current blink to threat no involuntary movements no extremity movement PSYCHIATRIC: Intubated - Constitutional no acute distress - Urinary Catheter Management Indwelling Temp Sensing Catheter Cath placed during this visit: yes Reason for continuing: Hourly intake/output Insertion date: 05/08/18 Insertion time: 22:40 Objective Laboratory Results - last 24 hr 05/12/18 05/12/18 05/12/18 07:00 08:12 11:30 WBC RBC Hgb Hct MCV MCH MCHC RDW Plt Count MPV Neut % (Auto) Lymph % (Auto) Door % (Auto) Eos % (Auto) Baso % (Auto) Neut # (Auto) Lymph # (Auto) Door # (Auto) Eos # (Auto) Baso # (Auto) WBC Differential Differential Comment APTT 62.0 H Puncture Site Patient Temperature O2 Saturation ABG pH ABG pCO2 ABG pO2 ABG HCO3 ABG O2 Content ABG Base Excess ABG Methemoglobin David Test Hemoglobin Carboxyhemoglobin O2 Delivery Device Vent Setting Inspired O2 Critical Value Sodium Potassium Chloride Carbon Dioxide Anion Gap BUN Creatinine Estimated GFR POC Glucose 184 H Random Glucose Calcium Phosphorus 1.8 L Magnesium Total Bilirubin AST ALT Alkaline Phosphatase Total Protein Albumin Phenytoin 10.4 Phenobarbital Less than 2.1 L 05/12/18 05/12/18 05/12/18 11:40 20:27 22:25 WBC RBC Hgb Hct MCV MCH MCHC RDW Plt Count MPV Neut % (Auto) Lymph % (Auto) Door % (Auto) Eos % (Auto) Baso % (Auto) Neut # (Auto) Lymph # (Auto) Door # (Auto) Eos # (Auto) Baso # (Auto) WBC Differential Differential Comment APTT 47.9 H D Puncture Site Patient Temperature O2 Saturation ABG pH ABG pCO2 ABG pO2 ABG HCO3 ABG O2 Content ABG Base Excess ABG Methemoglobin David Test Hemoglobin Carboxyhemoglobin O2 Delivery Device Vent Setting Inspired O2 Critical Value Sodium Potassium Chloride Carbon Dioxide Anion Gap BUN Creatinine Estimated GFR POC Glucose 164 H 217 H Random Glucose Calcium Phosphorus Magnesium Total Bilirubin AST ALT Alkaline Phosphatase Total Protein Albumin Phenytoin Phenobarbital 05/12/18 05/12/18 05/13/18 23:55 23:55 04:25 WBC 15.6 H RBC 4.44 L Hgb 12.7 L Hct 37.5 L MCV 84.5 MCH 28.5 MCHC 33.8 RDW 15.0 Plt Count 220 MPV 8.7 Neut % (Auto) 89.3 H Lymph % (Auto) 4.8 L Door % (Auto) 4.8 Eos % (Auto) 0.8 Baso % (Auto) 0.3 Neut # (Auto) 13.9 H Lymph # (Auto) 0.7 L Door # (Auto) 0.7 Eos # (Auto) 0.1 Baso # (Auto) 0.1 WBC Differential . Differential Comment Auto diff final APTT Puncture Site Patient Temperature O2 Saturation ABG pH ABG pCO2 ABG pO2 ABG HCO3 ABG O2 Content ABG Base Excess ABG Methemoglobin David Test Hemoglobin Carboxyhemoglobin O2 Delivery Device Vent Setting Inspired O2 Critical Value Sodium Potassium 3.7 Chloride Carbon Dioxide Anion Gap BUN Creatinine Estimated GFR POC Glucose 216 H Random Glucose Calcium Phosphorus 2.3 L Magnesium Total Bilirubin AST ALT Alkaline Phosphatase Total Protein Albumin Phenytoin Phenobarbital 05/13/18 05/13/18 05/13/18 04:25 04:25 04:26 WBC RBC Hgb Hct MCV MCH MCHC RDW Plt Count MPV Neut % (Auto) Lymph % (Auto) Door % (Auto) Eos % (Auto) Baso % (Auto) Neut # (Auto) Lymph # (Auto) Door # (Auto) Eos # (Auto) Baso # (Auto) WBC Differential Differential Comment APTT 43.0 H Puncture Site Patient Temperature O2 Saturation ABG pH ABG pCO2 ABG pO2 ABG HCO3 ABG O2 Content ABG Base Excess ABG Methemoglobin David Test Hemoglobin Carboxyhemoglobin O2 Delivery Device Vent Setting Inspired O2 Critical Value Sodium 145 Potassium 3.9 Chloride 109 H Carbon Dioxide 29.9 Anion Gap 6 BUN 15 Creatinine 0.81 Estimated GFR Greater than 89 POC Glucose 238 H Random Glucose 257 H Calcium 8.1 L Phosphorus 2.1 L Magnesium 2.2 Total Bilirubin 0.4 AST 67 H ALT 51 Alkaline Phosphatase 85 Total Protein 5.5 L Albumin 2.0 L Phenytoin 12.7 Phenobarbital 3.1 L 05/13/18 07:09 WBC RBC Hgb Hct MCV MCH MCHC RDW Plt Count MPV Neut % (Auto) Lymph % (Auto) Door % (Auto) Eos % (Auto) Baso % (Auto) Neut # (Auto) Lymph # (Auto) Door # (Auto) Eos # (Auto) Baso # (Auto) WBC Differential Differential Comment APTT Puncture Site [place] Patient Temperature 98.6 O2 Saturation 97 ABG pH 7.46 H ABG pCO2 35 L ABG pO2 123 H ABG HCO3 25 ABG O2 Content 17.6 ABG Base Excess 1.2 ABG Methemoglobin 1.4 David Test Present Hemoglobin 12.9 Carboxyhemoglobin 0.7 O2 Delivery Device Ventilator Vent Setting See comments Inspired O2 40 Critical Value No Sodium Potassium Chloride Carbon Dioxide Anion Gap BUN Creatinine Estimated GFR POC Glucose Random Glucose Calcium Phosphorus Magnesium Total Bilirubin AST ALT Alkaline Phosphatase Total Protein Albumin Phenytoin Phenobarbital Microbiology 05/09/18 16:00 Aerobic Blood Culture - Preliminary Blood - Line No growth in 3 days Anaerobic Blood Culture - Preliminary No growth in 3 days 05/08/18 21:38 Aerobic Blood Culture - Preliminary Blood - Peripheral No growth in 4 days Anaerobic Blood Culture - Preliminary No growth in 4 days 05/08/18 21:33 Aerobic Blood Culture - Preliminary Blood - Peripheral No growth in 4 days Anaerobic Blood Culture - Preliminary No growth in 4 days Review/Management - Diagnosis (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 fib arrest underlying code cool post-anoxic seizure on eeg MRI brain reviewed. No pontine hemorrhage. No diffusion restriction noted on DWI images. On heparin drip on dilantin/phb, keppra Recommendation f/u eeg this am off sedation dil 12.7 phb 3.1 increase phb to 90 q8hrs
[2018-05-13] MEDS: Senna/Docusate Sodium 8.6/50 MG Tablet PO SCH ×2 (08:00→20:54)
[2018-05-13] MEDS: Chlorhexidine 0.12% Oral Kit 15 ML UDC OROPHARYNG SCH ×2 (08:01→20:56)
[2018-05-13] MEDS: Insulin Detemir Inj 1,000 UNIT/10 ML Vial SQ SCH ×2 (08:02→20:53)
[2018-05-13] MEDS: Sod Chloride 0.9% Inj 1,000 ML IV.CONT SCH ×2 (08:02→20:53)
[2018-05-13] MEDS: Polyethylene Glycol 3350 17 GM Packet PO SCH ×2 (08:02→20:54)
--- NOTE | 2018-05-13 09:10 | P.PNCA ---
Subjective Interval history: Intubated. Sedated. Medications and Allergies Active Medications: Active Medications Acetaminophen (Tylenol) 650 mg PO Q6H PRN PRN Reason: PAIN 1-5 AND/OR FEVER >101F Last Admin: 05/12/18 14:56 Dose: 650 mg Al Hydroxide/Mg Hydroxide (Milk Of Magnesia Liq) 30 ml PO Q12H PRN PRN Reason: Mild Constipation Albuterol (Albuterol Neb (Prn)) 2.5 mg NEB Q2HR NEB PRN PRN Reason: DYSPNEA Albuterol (Duoneb Neb (Chao)) 1 ampul NEB Q4HR NEB [facility] Last Admin: 05/13/18 07:51 Dose: 1 ampul Artificial Tears (Tears Naturale Opth Drops) 1 drop EACH EYE Q8H [facility] Last Admin: 05/13/18 04:37 Dose: 1 drop Aspirin (Aspirin Chew) 81 mg PO DAILY [facility] Last Admin: 05/13/18 08:00 Dose: 81 mg Atorvastatin Calcium (Lipitor) 10 mg PO HS [facility] Last Admin: 05/12/18 20:48 Dose: 10 mg Bisacodyl (Dulcolax Supp) 10 mg RECTAL DAILY PRN PRN Reason: SEVERE CONSITIPATION Carvedilol (Coreg) 3.125 mg PO BID [facility] Last Admin: 05/13/18 08:01 Dose: Not Given Chlorhexidine Gluconate (Peridex 0.12% Oral Kit) 15 ml OROPHARYNG BID@0800, 2000 [facility] Last Admin: 05/13/18 08:01 Dose: 15 ml Chlorhexidine Gluconate (Chlorhexidine 2% Cloth) 3 pack TOPICAL DAILY@0400 [facility] Stop: 05/14/18 03:59 Last Admin: 05/13/18 04:38 Dose: 3 pack Chlorhexidine Gluconate (Chlorhexidine 2% Cloth) 3 pack TOPICAL DAILY@0400 PRN PRN Reason: Extra cloth needed Stop: 05/14/18 03:59 Dextrose (D50w Vial) 50 ml IV.PUSH UNSCH PRN PRN Reason: PER HYPOGLYCEMIA PROTOCOL Enalapril Maleate (Vasotec) 2.5 mg PO DAILY [facility] Last Admin: 05/12/18 08:47 Dose: 2.5 mg Furosemide (Lasix Inj) 40 mg IV.PUSH DAILY [facility] Last Admin: 05/13/18 08:01 Dose: 40 mg Glucagon (Glucagon Inj) 1 mg OTHER PRN PRN PRN Reason: for Hypoglycemia Protocol Hydralazine HCl (Apresoline Inj) 10 mg IV.PUSH Q1H PRN PRN Reason: Sbp>140, Dbp>90 Last Admin: 05/10/18 08:00 Dose: 10 mg Sodium Chloride (Ns Inj) 1,000 mls @ 84 mls/hr IV.CONT .[id number] [facility] Last Admin: 05/13/18 08:02 Dose: 84 mls/hr Propofol (Diprivan 1000 Mg/100 Ml Inj) 1,000 mg in 100 mls @ 2.449 mls/hr IV.CONT TITRATE PRN; Protocol PRN Reason: Per Protocol Last Admin: 05/13/18 02:38 Dose: 10 mcg/kg/min, 4.9 mls/hr Fentanyl (Fentanyl 10 Mcg/Ml Premix Drip) 2,500 mcg in 250 mls @ 5 mls/hr IV.SIG TITRATE PRN; Protocol PRN Reason: Per Protocol Last Admin: 05/12/18 00:45 Dose: 50 mcg/hr, 5 mls/hr Norepinephrine Bitartrate 16 (mg/ Sodium Chloride) 250 mls @ 1.87 mls/hr IV.CONT TITRATE PRN; Protocol PRN Reason: See Protocol Last Titration: 05/12/18 00:30 Dose: 3 mcg/min, 2.81 mls/hr Amiodarone HCl 450 mg/ Sodium (Chloride) 250 mls @ 33.33 mls/hr IV.CONT TITRATE PRN; Protocol PRN Reason: Per Protocol Last Admin: 05/12/18 19:47 Dose: 0.5 mg/min, 16.66 mls/hr Heparin Sodium/Dextrose (Heparin/D5w 25,000 U/250 Ml) 25,000 unit in 250 mls @ 0 mls/hr IV.CONT TITRATE PRN; Protocol PRN Reason: Per Protocol Last Admin: 05/13/18 06:31 Dose: 900 units/hr, 9 mls/hr Piperacillin/Tazobactam/Dextrose (Zosyn 4.5 Gm Premix) 4.5 gm in 100 mls @ 200 mls/hr IV.SIG Q6H [facility] Last Infusion: 05/13/18 05:19 Dose: Infused Midazolam HCl (Versed Inj) 100 mg in 100 mls @ 2 mls/hr IV.CONT TITRATE PRN; Protocol PRN Reason: Per Protocol Last Titration: 05/13/18 02:34 Dose: Infused Magnesium Sulfate 4 gm/ Sodium (Chloride) 100 mls @ 50 mls/hr IV.SIG UNSCH PRN PRN Reason: For Magnesium 0.9 - 1.1 mg/dL Magnesium Sulfate 2 gm/ Sodium (Chloride) 100 mls @ 50 mls/hr IV.SIG UNSCH PRN PRN Reason: For Magnesium 1.2 - 1.6 mg/dL Potassium Chloride (Kcl 40 Meq Premix Inj) 40 meq in 100 mls @ 25 mls/hr IV.SIG Q2H PRN PRN Reason: For Potassium 2.8 - 3.2 mEq/L Last Infusion: 05/12/18 14:09 Dose: Infused Potassium Chloride (Kcl 20 Meq Premix Inj) 20 meq in 100 mls @ 50 mls/hr IV.SIG Q2H PRN PRN Reason: For Potassium 3.3 - 3.5 mEq/L Potassium Chloride (Kcl 40 Meq Premix Inj) 40 meq in 100 mls @ 25 mls/hr IV.SIG UNSCH PRN PRN Reason: For Potassium 3.3 - 3.5 mEq/L Potassium Chloride (Kcl 20 Meq Premix Inj) 20 meq in 100 mls @ 50 mls/hr IV.SIG Q2H PRN PRN Reason: For Potassium 2.8 - 3.2 mEq/L Potassium Phosphate 30 mmol/ (Sodium Chloride) 260 mls @ 42 mls/hr IV.SIG UNSCH PRN PRN Reason: SEE LABEL COMMENTS Sodium Phosphate 30 mmol/ (Sodium Chloride) 260 mls @ 42 mls/hr IV.SIG UNSCH PRN PRN Reason: For Phosphorus < 2.5 mg/dL Levetiracetam 500 mg/ Sodium (Chloride) 105 mls @ 400 mls/hr IV.SIG Q12H [facility] Last Infusion: 05/12/18 22:43 Dose: Infused Fosphenytoin Sodium 100 mgpe/ (Sodium Chloride) 52 mls @ 208 mls/hr IV.SIG Q8HR [facility] Last Admin: 05/13/18 06:03 Dose: 208 mls/hr Insulin Aspart (Novolog Insulin Correctional Sugar Inj) 0 unit SQ Q4HR [facility]; Protocol Last Admin: 05/13/18 08:01 Dose: 4 unit Insulin Detemir (Levemir Inj) 4 unit SQ BID [facility] Last Admin: 05/13/18 08:02 Dose: 4 unit Labetalol HCl (Trandate Inj) 10 mg IV.PUSH Q1H PRN PRN Reason: Sbp>140, Dbp>90, Hr>65 Last Admin: 05/10/18 14:30 Dose: 10 mg Lactulose (Lactulose Liq) 30 ml PO DAILY PRN PRN Reason: SEVERE CONSITIPATION Lactulose (Lactulose Liq) 30 ml PO BID [facility] Last Admin: 05/13/18 08:00 Dose: 30 ml Lorazepam (Ativan Inj) 1 mg IV.PUSH Q1H PRN PRN Reason: SEE LABEL COMMENTS Lorazepam (Ativan Inj) 2 mg IV.PUSH Q1H PRN PRN Reason: SEIZURE ACTIVITY Magnesium Oxide (Mag-Ox) 800 mg PO UNSCH PRN PRN Reason: For Magnesium 1.2 - 1.6 mg/dL Midazolam HCl (Versed Inj) 2 mg IV.PUSH Q1H PRN PRN Reason: SEE LABEL COMMENTS Last Admin: 05/10/18 14:30 Dose: 2 mg Miscellaneous Medication () 1 each OROPHARYNG 0000,0400,1200,1600 [facility] Last Admin: 05/13/18 04:37 Dose: 1 each Morphine Sulfate (Morphine Inj) 2 mg IV.PUSH Q2H PRN PRN Reason: PAIN SCALE 6 TO 10 Ondansetron HCl (Zofran Inj) 4 mg IV.PUSH Q6H PRN PRN Reason: NAUSEA OR VOMITING Pantoprazole Sodium (Protonix Inj) 40 mg IV.PUSH Q24H [facility] Last Admin: 05/12/18 12:49 Dose: 40 mg Phenobarbital Sodium (Luminal Inj) 60 mg IV.PUSH Q8HR [facility] Last Admin: 05/13/18 06:03 Dose: 60 mg Polyethylene Glycol (Miralax) 17 gm PO BID [facility] Last Admin: 05/13/18 08:02 Dose: 17 gm Potassium Bicarb/Potassium Chloride (K-Lyte Cl Eff) 50 meq PO UNSCH PRN PRN Reason: For Potassium 3.3 - 3.5 mEq/L Potassium Phosphate (K-Phos Original) 2,000 mg PO Q4H PRN PRN Reason: Phosphorus Less Than 2.5 mg/dL Last Admin: 05/13/18 03:47 Dose: 2,000 mg Potassium Phosphate (K-Phos Original) 2,000 mg PO UNSCH PRN PRN Reason: SEE LABEL COMMENTS Senna/Docusate Sodium (Lizbeth-Colace) 1 tab PO BID [facility] Last Admin: 05/13/18 08:00 Dose: 1 tab Sennosides (Senokot) 17.2 mg PO Q12H PRN PRN Reason: Moderate Constipation Sodium Chloride (Ns Flush) 2 ml IV.FLUSH BID [facility] Last Admin: 05/13/18 08:02 Dose: 2 ml Sodium Chloride (Ns Flush) 2 ml IV.FLUSH PRN PRN PRN Reason: FLUSH AFTER USING IV ACCESS Sodium Chloride (Ns Flush) 0 ml IV.FLUSH DAILY [facility] Last Admin: 05/13/18 08:02 Dose: 6 ml Terbutaline Sulfate (Brethine Inj) 1 mg SQ UNSCH PRN PRN Reason: For Extravasation Allergies Allergy/AdvReac Type Severity Reaction Status Date / Time No Known Allergies Allergy Uncoded 02/17/15 12:05 Home Medications Medication Instructions Recorded Confirmed Type No Known Home Medications 05/08/18 05/08/18 History Physical Exam Vital signs: Vital Signs 05/12/18 10:37 05/12/18 11:12 05/12/18 12:00 Temperature 98.6 F Pulse Rate 78 88 Respiratory Rate 14 14 17 Blood Pressure Pulse Oximetry 98 98 05/12/18 15:47 05/12/18 16:00 05/12/18 16:31 Temperature 100.2 F H Pulse Rate 81 80 Respiratory Rate 14 17 16 Blood Pressure 117/64 Pulse Oximetry 100 99 05/12/18 20:00 05/12/18 20:09 05/12/18 22:00 Temperature 100.2 F H Pulse Rate 90 90 86 Respiratory Rate 16 20 Blood Pressure 127/68 Pulse Oximetry 97 98 05/12/18 23:40 05/13/18 00:00 05/13/18 03:57 Temperature 99.9 F H Pulse Rate 83 83 77 Respiratory Rate 15 15 15 Blood Pressure 117/69 Pulse Oximetry 97 97 05/13/18 04:00 05/13/18 04:21 05/13/18 07:48 Temperature 99.9 F H Pulse Rate 76 Respiratory Rate 14 17 18 Blood Pressure 126/75 Pulse Oximetry 97 98 99 05/13/18 07:51 Temperature Pulse Rate 74 Respiratory Rate 17 Blood Pressure Pulse Oximetry Intake & Output 05/12/18 05/13/18 05/13/18 18:59 06:59 18:59 Intake Total 2751 / 2751 2697 / 2697 1000 / 1000 Output Total 3700 / 3700 1100 / 1100 Balance -949 / -949 1597 / 1597 1000 / 1000 Weight 83.5 kg Intake: IV 2158 / 2158 1907 / 1907 1000 / 1000 Cordarone Inj 450 MG In NS Inj 250 / 250 241 ML @ 1 MG/MIN 33.33 mls/hr IV.CONT TITRATE PRN Rx#: [id number] Heparin/D5W 25,000 U/250 mL 25, 250 / 250 000 unit In 250 ml @ Per Protocol IV.CONT TITRATE PRN Rx #:[id number] Versed Inj 100 mg In 100 ml @ 2 100 / 100 100 / 100 MG/HR 2 mls/hr IV.CONT TITRATE PRN Rx#:[id number] Diprivan 1000 mg/100 ml Inj 1, 100 / 100 100 / 100 000 mg In 100 ml @ 5 MCG/KG/MIN 2.449 mls/hr IV.CONT TITRATE PRN Rx#:[id number] NS Inj 1,000 ML @ 84 mls/hr IV. 1000 / 1000 1000 / 1000 1000 / 1000 CONT .[id number] [facility] Rx#:[id number] Cerebyx Inj 100 MGPE In NS Inj 108 / 108 52 / 52 50 ML @ 208 mls/hr IV.SIG Q8HR [facility] Rx#:[id number] Magnesium Sulfate Inj 2 GM In 100 / 100 NS Inj 96 ML @ 50 mls/hr IV.SIG ONCE ONE Rx#:[id number] Zosyn 4.5 GM Premix 4.5 gm In 300 / 300 200 / 200 100 ml @ 200 mls/hr IV.SIG Q6H [facility] Rx#:[id number] KCl 40 mEq Premix Inj 40 meq In 200 / 200 100 ml @ 25 mls/hr IV.SIG Q2H [facility] Rx#:[id number] Keppra 1000 mg/100 mL Premix 100 / 100 100 ML @ 400 mls/hr IV.SIG ONCE ONE Rx#:[id number] Keppra Inj 500 MG In NS Inj 100 105 / 105 ML @ 400 mls/hr IV.SIG Q12H [facility] Rx#:[id number] Tube Feeding 593 / 593 550 / 550 Water Bolus Amount 240 / 240 Output: Urine 1100 / 1100 Urine Amount (Catheter) 3700 / 3700 Indwelling Temp Sensing 3700 / 3700 Catheter Other: Date of Last Bowel Movement 05/13/18 # Bowel Movements 0 # Incontinent Bowel Movements 1 - Constitutional Comments: Intubated. Sedated. - Routine Neck Exam Comments: JVP 10 cm water - Routine Respiratory Exam Present: CTA bilaterally - Routine Cardiovascular Exam Present: RRR, S1, S2. Absent: murmur, gallop - Routine Abdominal Exam Present: soft, normoactive bowel sounds. Absent: organomegaly - Routine Extremities Exam Absent: cyanosis, clubbing, edema - Urinary Catheter Management Indwelling Temp Sensing Catheter Cath placed during this visit: yes Reason for continuing: Hourly intake/output Insertion date: 05/08/18 Insertion time: 22:40 Results 05/13/18 04:25 05/13/18 04:25 Cardiac Enzymes 05/12/18 05/13/18 Range/Units 04:45 04:25 AST 80 H 67 H (15-37) U/L CK-MB (CK-2) 27.5 H (0.5-3.6) ng/mL Troponin I 16.00 H* (0.02-0.05) ng/mL Coagulation 05/12/18 05/12/18 05/13/18 Range/Units 07:00 22:25 04:25 APTT 62.0 H 47.9 H D 43.0 H (23.4-31.7) sec CBC 05/12/18 05/13/18 Range/Units 04:45 04:25 WBC 13.9 H 15.6 H (4.0-11.0) th/mm3 RBC 4.52 4.44 L (4.50-5.90) mil/mm3 Hgb 12.7 L 12.7 L (13.0-17.0) gm/dL Hct 38.6 L 37.5 L (39.0-51.0) % Plt Count 187 220 (150-450) th/mm3 Neut # (Auto) 12.5 H 13.9 H (1.8-7.7) th/mm3 Lymph # (Auto) 0.7 L 0.7 L (1.0-4.8) th/mm3 [place] # (Auto) 0.5 0.7 (0.0-0.9) th/mm3 Eos # (Auto) 0.2 0.1 (0.0-0.4) th/mm3 Baso # (Auto) 0.1 0.1 (0.0-0.2) th/mm3 Comprehensive Metabolic Panel 05/11/18 05/12/18 05/12/18 Range/Units 18:24 04:45 23:55 Sodium 142 144 (136-145) meq/L Potassium 3.6 3.2 L 3.7 (3.5-5.1) meq/L Chloride 108 H 109 H (98-107) meq/L Carbon Dioxide 27.5 27.2 (21.0-32.0) meq/L BUN 10 11 (7-18) mg/dL Creatinine 0.67 0.69 (0.60-1.30) mg/dL Calcium 7.9 L 7.9 L (8.5-10.1) mg/dL AST 80 H (15-37) U/L ALT 52 (12-78) U/L Alkaline Phosphatase 60 (45-117) U/L Total Protein 5.2 L (6.4-8.2) g/dL Albumin 2.1 L (3.4-5.0) g/dL 05/13/18 Range/Units 04:25 Sodium 145 (136-145) meq/L Potassium 3.9 (3.5-5.1) meq/L Chloride 109 H (98-107) meq/L Carbon Dioxide 29.9 (21.0-32.0) meq/L BUN 15 (7-18) mg/dL Creatinine 0.81 (0.60-1.30) mg/dL Calcium 8.1 L (8.5-10.1) mg/dL AST 67 H (15-37) U/L ALT 51 (12-78) U/L Alkaline Phosphatase 85 (45-117) U/L Total Protein 5.5 L (6.4-8.2) g/dL Albumin 2.0 L (3.4-5.0) g/dL Intake and Output 11/05/13/18 05/13/18 22:59 06:59 14:59 Intake Total 2650 / 2650 1190 / 1190 1000 / 1000 Output Total 3700 / 3700 1100 / 1100 Balance -1050 / -1050 90 / 90 1000 / 1000 Intake: IV 2057 / 2056 400 / 400 1000 / 1000 Cordarone Inj 450 MG In NS Inj 250 / 250 241 ML @ 1 MG/MIN 33.33 mls/hr IV.CONT TITRATE PRN Rx#: [id number] Heparin/D5W 25,000 U/250 mL 25, 250 / 250 000 unit In 250 ml @ Per Protocol IV.CONT TITRATE PRN Rx #:[id number] Versed Inj 100 mg In 100 ml @ 2 100 / 100 100 / 100 MG/HR 2 mls/hr IV.CONT TITRATE PRN Rx#:[id number] Diprivan 1000 mg/100 ml Inj 1, 100 / 100 000 mg In 100 ml @ 5 MCG/KG/MIN 2.449 mls/hr IV.CONT TITRATE PRN Rx#:[id number] NS Inj 1,000 ML @ 84 mls/hr IV. 1000 / 1000 1000 / 1000 CONT .[id number] [facility] Rx#:[id number] Cerebyx Inj 100 MGPE In NS Inj 52 / 52 50 ML @ 208 mls/hr IV.SIG Q8HR [facility] Rx#:[id number] Magnesium Sulfate Inj 2 GM In 100 / 100 NS Inj 96 ML @ 50 mls/hr IV.SIG ONCE ONE Rx#:[id number] Zosyn 4.5 GM Premix 4.5 gm In 200 / 200 100 / 100 100 ml @ 200 mls/hr IV.SIG Q6H [facility] Rx#:[id number] Keppra 1000 mg/100 mL Premix 100 / 100 100 ML @ 400 mls/hr IV.SIG ONCE ONE Rx#:[id number] Keppra Inj 500 MG In NS Inj 100 105 / 105 ML @ 400 mls/hr IV.SIG Q12H [facility] Rx#:[id number] Tube Feeding 593 / 593 550 / 550 Water Bolus Amount 240 / 240 Output: Urine 1100 / 1100 Urine Amount (Catheter) 3700 / 3700 Indwelling Temp Sensing 3700 / 3700 Catheter Other: Date of Last Bowel Movement 05/13/18 # Bowel Movements 0 # Incontinent Bowel Movements 1 Weight 83.5 kg - Imaging and Cardiology Imaging: Impressions Chest X-Ray 05/12/18 06:00 CONCLUSION: No change in bilateral opacity likely representing a combination of mild pulmonary edema/pleural effusions. Chest X-Ray 05/12/18 11:03 CONCLUSION: 1. Central line without pneumothorax. 2. Unchanged bilateral pleural effusions and bibasilar pulmonary infiltrates. Chest X-Ray 05/13/18 06:00 CONCLUSION: No significant interval change with persistent bilateral pulmonary parenchymal opacity and small bilateral pleural effusions. Assessment and Plan - Assessment (1) ST elevation (STEMI) myocardial infarction involving left anterior descending coronary artery Code(s): I21.02 - ST elevation (STEMI) myocardial infarction involving left anterior descending coronary artery Status: Acute Plan: Cardiac status overall unchanged. Echo suggests patient sustained large LAD coronary territory infarction, EF ~30%. Recommend conservative management unless he neurologically recovers. Continue MAURILIO-I, aspirin, beta eleuterio. Consider stopping heparin drip. (2) Cardiac arrest Code(s): I46.9 - Cardiac arrest, cause unspecified Status: Acute Plan: No further ventricular tachyarrhythmias. Can change to oral Amiodarone. Consider ICD implant if he neurologically recovers. (3) Ischemic cardiomyopathy Code(s): I25.5 - Ischemic cardiomyopathy Status: Acute Plan: EF ~30% by echo. Chest x-ray unchanged. Recommend continue diuresis, continue MAURILIO-I, beta eleuterio. - Plan Code Status: full code
[2018-05-13] MEDS ORDERED: Vancomycin Consult Pharmacy OTHER PRN (09:12)
--- NOTE | 2018-05-13 09:12 | P.PNCC ---
Subjective Subjective Remarks/Hospital Course: 63-year-old male presents to emergency department intubated after VF/VT arrest. He had to be defibrillated twice in the field, afterwards clear STEMI criteria was called by [facility]. Apparently heard a collapse in the next room found the patient unresponsive called 9 1. Apparently total downtime was about 10 minutes and had a very quick Rask. Blood pressure was little low and dopamine drip was started in the field. Patient also had amiodarone started in the field. Initially the STEMI alert was called brain demonstrated punctate hyperdensity characteristic of hemorrhage in the right mid araseli in the STEMI alert was canceled. The patient has been admitted to ICU for hypothermia protocol treatment post cardiac arrest. 05/09: Discussed with at bedside. Currently on target temperature monitoring. EEG performed. Replacing potassium and phosphorus this a.m. 05/10: Currently temperature is a 97. Has been rewarmed from target temperature monitoring. EEG revealed no epileptic activity. Replace potassium currently. MRI brain revealed no signs of hemorrhage. Will start on heparin drip [place] protocol 900 units an hour and provide aspirin. Carvedilol started by cardiology during the a.m. 05/11: Phosphorus being replaced. Weaning off sedation currently. Rewarmed to 37 C. No problem. Tolerating tube feeds currently at 30 cc now. Subjective: 05/12: Currently resting in bed. New central has been placed and targeted temperature monitoring Quatro catheter has been removed. Seizures overnight. Currently on fosphenytoin and levetiracetam. Remains on midazolam drip. Updated at bedside. 05/13: Low-grade temperature during the night continues greater than 99.0., Noted blood cultures negative growth to date. Remains encephalopathic .EEG revealed continued epileptiform activity. Patient noted phenobarbital level this a.m. subtherapeutic at 3.1. Noted persistent leukocytosis, bilateral pulmonary opacities, sputum culture pending. Palliative care has been consulted Objective Vital Signs / I&O: Vital Signs 05/12/18 10:37 05/12/18 11:12 05/12/18 12:00 Temperature 98.6 F Pulse Rate 78 88 Respiratory Rate 14 14 17 Blood Pressure Pulse Oximetry 98 98 05/12/18 15:47 05/12/18 16:00 05/12/18 16:31 Temperature 100.2 F H Pulse Rate 81 80 Respiratory Rate 14 17 16 Blood Pressure 117/64 Pulse Oximetry 100 99 05/12/18 20:00 05/12/18 20:09 05/12/18 22:00 Temperature 100.2 F H Pulse Rate 90 90 86 Respiratory Rate 16 20 Blood Pressure 127/68 Pulse Oximetry 97 98 05/12/18 23:40 05/13/18 00:00 05/13/18 03:57 Temperature 99.9 F H Pulse Rate 83 83 77 Respiratory Rate 15 15 15 Blood Pressure 117/69 Pulse Oximetry 97 97 05/13/18 04:00 05/13/18 04:21 05/13/18 07:48 Temperature 99.9 F H Pulse Rate 76 Respiratory Rate 14 17 18 Blood Pressure 126/75 Pulse Oximetry 97 98 99 05/13/18 07:51 Temperature Pulse Rate 74 Respiratory Rate 17 Blood Pressure Pulse Oximetry Intake & Output 05/12/18 05/13/18 05/13/18 18:59 06:59 18:59 Intake Total 2751 / 2751 2697 / 2697 1000 / 1000 Output Total 3700 / 3700 1100 / 1100 Balance -949 / -949 1597 / 1597 1000 / 1000 Weight 83.5 kg Intake: IV 2158 / 2158 1907 / 1907 1000 / 1000 Cordarone Inj 450 MG In NS Inj 250 / 250 241 ML @ 1 MG/MIN 33.33 mls/hr IV.CONT TITRATE PRN Rx#: [id number] Heparin/D5W 25,000 U/250 mL 25, 250 / 250 000 unit In 250 ml @ Per Protocol IV.CONT TITRATE PRN Rx #:[id number] Versed Inj 100 mg In 100 ml @ 2 100 / 100 100 / 100 MG/HR 2 mls/hr IV.CONT TITRATE PRN Rx#:[id number] Diprivan 1000 mg/100 ml Inj 1, 100 / 100 100 / 100 000 mg In 100 ml @ 5 MCG/KG/MIN 2.449 mls/hr IV.CONT TITRATE PRN Rx#:[id number] NS Inj 1,000 ML @ 84 mls/hr IV. 1000 / 1000 1000 / 1000 1000 / 1000 CONT .[id number] [facility] Rx#:[id number] Cerebyx Inj 100 MGPE In NS Inj 108 / 108 52 / 52 50 ML @ 208 mls/hr IV.SIG Q8HR [facility] Rx#:[id number] Magnesium Sulfate Inj 2 GM In 100 / 100 NS Inj 96 ML @ 50 mls/hr IV.SIG ONCE ONE Rx#:[id number] Zosyn 4.5 GM Premix 4.5 gm In 300 / 300 200 / 200 100 ml @ 200 mls/hr IV.SIG Q6H [facility] Rx#:[id number] KCl 40 mEq Premix Inj 40 meq In 200 / 200 100 ml @ 25 mls/hr IV.SIG Q2H [facility] Rx#:[id number] Keppra 1000 mg/100 mL Premix 100 / 100 100 ML @ 400 mls/hr IV.SIG ONCE ONE Rx#:[id number] Keppra Inj 500 MG In NS Inj 100 105 / 105 ML @ 400 mls/hr IV.SIG Q12H [facility] Rx#:[id number] Tube Feeding 593 / 593 550 / 550 Water Bolus Amount 240 / 240 Output: Urine 1100 / 1100 Urine Amount (Catheter) 3700 / 3700 Indwelling Temp Sensing 3700 / 3700 Catheter Other: Date of Last Bowel Movement 05/13/18 # Bowel Movements 0 # Incontinent Bowel Movements 1 Result Diagrams: 05/13/18 04:25 05/13/18 04:25 Objective Remarks: GENERAL: 63-year-old male currently orotracheally intubated SKIN: cool and dry. HEAD: Atraumatic. Normocephalic. EYES: Pupils equal and round and minimally reactive bilaterally. No scleral icterus. No injection or drainage. ENT: No nasal bleeding or discharge. Mucous membranes pink and moist. NECK: Trachea midline. No JVD. Left IJ is clean dry and intact. day 2 CARDIOVASCULAR: RRR S1, S2. No S4. RESPIRATORY: No accessory muscle use. Clear to auscultation. Breath sounds equal bilaterally. GASTROINTESTINAL: Abdomen soft, non-tender, nondistended. Hepatic and splenic margins not palpable. Normal active bowel sounds MUSCULOSKELETAL: Extremities without clubbing, cyanosis, or edema. No obvious deformities. NEUROLOGICAL: Currently on midazolam and fentanyl drips. Positive gag and cough and minimal corneal reflex. Does not withdraw to pain. Assessment and Plan - Assessment and Plan Plan: Neuro/Psych: Rule out anoxic encephalopathy Original CT brain on admission revealed possible 3 mm mid right araseli hemorrhage. Currently midazolam at 4 mg an hour, fentanyl drip at 250 mcg an hour , propofol drips 10 mcgs for sedation/analgesia while intubated. Daily sedation vacation Goal of RASS -2 Cold cool Catheter removed 05/12. Neurology/Dr. Connor following. EEG completed 05/09 with no epileptic activity. Repeat 05/12 with sharp activity. Will repeat 05/13. Currently on fosphenytoin IV 3 times daily and levetiracetam 500 mg IV twice daily and phenobarbital 60 mg 3 times daily. Check fosphenytoin and phenobarbital level in a.m. 05/13 MRI brain revealed left maxillary, bilateral ethmoid and sphenoid sinusitis. MRA brain revealed normal examination. CV Out of hospital cardiac arrest/V. 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 Rayos. Melendez for carvedilol 3.125 mg twice daily, start aspirin 81 mg daily and heparin drip that he rates an hour. 05/12 Added enalapril 20 mg daily and atorvastatin 10 mg at night since MRI brain revealed no hemorrhage Originally not candidate for cardiac catheterization due to pontine hemorrhage right mid araseli. This is been changed with MRI/A Troponin elevated 2.86 this a.m. currently elevated at 3.2. Follow until downward trend 2D echocardiogram revealed EF 30-35%. Ruptured chordae tendon possible involving mitral valve. Resp: Acute respiratory failurelikely aspiration with right lower lobe infiltrate and altered mental status PRVC ventilation Ventilator bundle Head of bed at 30 degrees Albuterol/ipratropium aerosols every 4 hours with albuterol aerosols every 2 hours as needed dyspnea Chest x-ray revealed bilateral pulmonary opacities and small bilateral pleural effusions. Obtain sputum culture-initiate prophylactic antibiotics GI: Vital 1.5 goal 60 cc output currently 60 cc an hour Pantoprazole for GI prophylaxis Docusate serum/senna 1 tablet twice daily for bowel regimen : O[place]ana catheter placed for accurate I's and O's in a critical patient currentl Endo: Acute hyperglycemia Low TSH Sliding scale insulin with Accu-Cheks to maintain euglycemia. On insulin detemir 4 units twice daily TSH was 0.285. Normal free T4/total T3. Recheck 4-6-week HEME: Leukocytosis Monitor CBC daily. Follow trends. Renal Creatinine currently within normal limits Acute I's and O's Heme monitor urine output: ID: Monitor for signs and symptomatology infection Patient with aspiration. We will start on piperacillin/tazobactam. FEN: Replace electrolytes as clinically indicated MSK: PT evaluate and treat Access -Left CVL day 1 Prophylaxis - -GI pantoprazole - -DVT -SCD/heparin drip 34 minutes critical care time.
[2018-05-13] MEDS ORDERED: Vancomycin Inj 1,000 MG in Sodium Chlor 0.9% Inj 250 ML IV.SIG SCH (10:00)
[2018-05-13] MEDS: Vancomycin Inj 1,250 MG in Sodium Chlor 0.9% Inj 250 ML IV.SIG SCH (12:04)
[2018-05-13] MEDS: Pantoprazole Inj 40 MG Vial IV.PUSH SCH (12:04)
[2018-05-13] MEDS: PHENobarbital Inj 130 MG/ML Vial IV.PUSH SCH (13:56)
--- NOTE | 2018-05-13 17:11 | P.CONPAL ---
Consult Service: Palliative Care Requesting Physician: Meredith Roblero Reason for Consult: a. To assist with evaluation and management of symptoms including: Pain. b. To assist medical decision maker(s) with: better understanding of current medical conditions; weighing benefits/burdens of medical treatment options; making medical treatment decisions. Primary Care Provider: Joseph Calhoun MD History of Present Illness History of Present Illness: Mr. Siddiqui is a 63-year-old male who presented to ED via EMS status post V. fib/ V. tach arrest and was intubated on site. As per the EVAC report, patient's heard the patient fall from standing in the kitchen of his home. Patient with complaints of heartburn all day which he was treating with Tums. CPR was initiated after approximately 10 minutes, he was found in V. fib initial rhythm with spontaneous agonal respirations. He was defibrillated x2 with ROSC. Upon ED arrival, EKG indicated sinus rhythm with marked ST elevation. Head CT revealing hyperdensity likely representing hemorrhage in the right mid araseli. Patient will was not a candidate for cardiac cath given likelihood of intracranial hemorrhage. He was admitted to ICU for further monitoring and management to include hypothermia protocol. Neurology Dr. Connor and cardiology Dr. Haile consulted on 05/09. Echocardiogram 05/09 revealing EF of 30-35% with ruptured chordae tendon. EEG negative for seizure activity. Head MRI 05/10 with no evidence of acute hemorrhage within the right araseli. Hypothermia protocol/rewarming achieved on . Clinical course complicated by persistent post anoxic seizures. 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 Patient with persistent leukocytosis and low-grade temperature, sputum culture pending. Palliative care has been consulted for further clarifications of goals of care and family support given overall poor prognosis. Patient seen in medical ICU. Endotracheally intubated on mechanical ventilation. Currently on Versed, propofol and fentanyl drip. Amiodarone drip and heparin drip ongoing. Unresponsive to verbal or tactile stimuli, not following any commands. Chest x-ray today revealing persistent bilateral pulmonary opacities and small bilateral pleural effusions. Blood, urine cultures 05/08 negative. Pending sputum culture 05/13. Max temperature today 100.6. Patient hemodynamically stable. Case discussed in detail with Dr. Roblero and bedside [facility] Barr. Overall poor prognosis for meaningful recovery. Telephone conversation with patient's Dyan, she was unable to meet with palliative care today given her work schedule. However, agreed to meet with palliative care tomorrow 05/14 at 2 PM for further clarifications of goals of care. wishing to meet in person for goals of care clarification. Function/Cognitive Trajectory: Patient residing with prior to this acute event. Fully independent with all ADLs. No cognitive or functional deficit reported. Review of Systems unobtainable due to mental condition PMFSH - History History 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, Electromechanic / EMT - Medical History Medical History: Medical History (Last Reviewed 05/09/18 @ 13:46 by Jamey Miner) History of MRSA infection Onset Date: ~05/08/18 Patient denies medical problems - Surgical History Surgical History: Surgical History (Last Updated 05/13/18 @ 16:56 by Radha Kaye APRN) History of arthroscopy of both knees - Family History Family History: Family History (Last Updated 05/13/18 @ 16:57 by Radha Kaye APRN) Father Atherosclerotic heart disease - Social History I have reviewed the patient's Social History: Yes - Tobacco History Tobacco Use In Past 30 Days: No Smoking Status: Unknown if ever smoked - Alcohol History How Often Do You Have a Drink Containing Alcohol: Unable to Obtain - Substance Use History Substance History: Unable to Obtain - Travel History Recent Travel in the [place] Within the Last 8 Weeks: No Recent Travel Out of the Country Within the Last 8 Weeks: No - Immunization History Tetanus Immunization: Unable to Assess Hx Influenza Vaccine This Season: No Medications and Allergies Active Medications: Active Medications Acetaminophen (Tylenol) 650 mg PO Q6H PRN PRN Reason: PAIN 1-5 AND/OR FEVER >101F Last Admin: 05/12/18 14:56 Dose: 650 mg Al Hydroxide/Mg Hydroxide (Milk Of Magnmir Liq) 30 ml PO Q12H PRN PRN Reason: Mild Constipation Albuterol (Albuterol Neb (Prn)) 2.5 mg NEB Q2HR NEB PRN PRN Reason: DYSPNEA Albuterol (Duoneb Neb (Chao)) 1 ampul NEB Q4HR NEB CHAO Last Admin: 05/13/18 15:15 Dose: 1 ampul Artificial Tears (Tears Naturale Opth Drops) 1 drop EACH EYE Q8H [facility]AO Last Admin: 05/13/18 12:04 Dose: 1 drop Aspirin (Aspirin Chew) 81 mg PO DAILY [facility] Last Admin: 05/13/18 08:00 Dose: 81 mg Atorvastatin Calcium (Lipitor) 10 mg PO HS [facility] Last Admin: 05/12/18 20:48 Dose: 10 mg Bisacodyl (Dulcolax Supp) 10 mg RECTAL DAILY PRN PRN Reason: SEVERE CONSITIPATION Carvedilol (Coreg) 3.125 mg PO BID [facility] Last Admin: 05/13/18 08:01 Dose: Not Given Chlorhexidine Gluconate (Peridex 0.12% Oral Kit) 15 ml OROPHARYNG BID@0800, 2000 [facility] Last Admin: 05/13/18 08:01 Dose: 15 ml Chlorhexidine Gluconate (Chlorhexidine 2% Cloth) 3 pack TOPICAL DAILY@0400 [facility] Stop: 05/14/18 03:59 Last Admin: 05/13/18 04:38 Dose: 3 pack Chlorhexidine Gluconate (Chlorhexidine 2% Cloth) 3 pack TOPICAL DAILY@0400 PRN PRN Reason: Extra cloth needed Stop: 05/14/18 03:59 Dextrose (D50w Vial) 50 ml IV.PUSH UNSCH PRN PRN Reason: PER HYPOGLYCEMIA PROTOCOL Enalapril Maleate (Vasotec) 2.5 mg PO DAILY [facility] Last Admin: 05/12/18 08:47 Dose: 2.5 mg Furosemide (Lasix Inj) 40 mg IV.PUSH DAILY [facility] Last Admin: 05/13/18 08:01 Dose: 40 mg Glucagon (Glucagon Inj) 1 mg OTHER PRN PRN PRN Reason: for Hypoglycemia Protocol Hydralazine HCl (Apresoline Inj) 10 mg IV.PUSH Q1H PRN PRN Reason: Sbp>140, Dbp>90 Last Admin: 05/10/18 08:00 Dose: 10 mg Sodium Chloride (Ns Inj) 1,000 mls @ 84 mls/hr IV.CONT .[id number] [facility] Last Admin: 05/13/18 08:02 Dose: 84 mls/hr Propofol (Diprivan 1000 Mg/100 Ml Inj) 1,000 mg in 100 mls @ 2.449 mls/hr IV.CONT TITRATE PRN; Protocol PRN Reason: Per Protocol Last Admin: 05/13/18 02:38 Dose: 10 mcg/kg/min, 4.9 mls/hr Fentanyl (Fentanyl 10 Mcg/Ml Premix Drip) 2,500 mcg in 250 mls @ 5 mls/hr IV.SIG TITRATE PRN; Protocol PRN Reason: Per Protocol Last Admin: 05/12/18 00:45 Dose: 50 mcg/hr, 5 mls/hr Norepinephrine Bitartrate 16 (mg/ Sodium Chloride) 250 mls @ 1.87 mls/hr IV.CONT TITRATE PRN; Protocol PRN Reason: See Protocol Last Titration: 05/13/18 11:00 Dose: 0 mcg/min, 0 mls/hr Amiodarone HCl 450 mg/ Sodium (Chloride) 250 mls @ 33.33 mls/hr IV.CONT TITRATE PRN; Protocol PRN Reason: Per Protocol Last Admin: 05/12/18 19:47 Dose: 0.5 mg/min, 16.66 mls/hr Heparin Sodium/Dextrose (Heparin/D5w 25,000 U/250 Ml) 25,000 unit in 250 mls @ 0 mls/hr IV.CONT TITRATE PRN; Protocol PRN Reason: Per Protocol Last Admin: 05/13/18 06:31 Dose: 900 units/hr, 9 mls/hr Piperacillin/Tazobactam/Dextrose (Zosyn 4.5 Gm Premix) 4.5 gm in 100 mls @ 200 mls/hr IV.SIG Q6H [facility]AO Last Admin: 05/13/18 16:32 Dose: 200 mls/hr Midazolam HCl (Versed Inj) 100 mg in 100 mls @ 2 mls/hr IV.CONT TITRATE PRN; Protocol PRN Reason: Per Protocol Last Titration: 05/13/18 02:34 Dose: Infused Magnesium Sulfate 4 gm/ Sodium (Chloride) 100 mls @ 50 mls/hr IV.SIG UNSCH PRN PRN Reason: For Magnesium 0.9 - 1.1 mg/dL Magnesium Sulfate 2 gm/ Sodium (Chloride) 100 mls @ 50 mls/hr IV.SIG UNSCH PRN PRN Reason: For Magnesium 1.2 - 1.6 mg/dL Potassium Chloride (Kcl 40 Meq Premix Inj) 40 meq in 100 mls @ 25 mls/hr IV.SIG Q2H PRN PRN Reason: For Potassium 2.8 - 3.2 mEq/L Last Infusion: 05/12/18 14:09 Dose: Infused Potassium Chloride (Kcl 20 Meq Premix Inj) 20 meq in 100 mls @ 50 mls/hr IV.SIG Q2H PRN PRN Reason: For Potassium 3.3 - 3.5 mEq/L Potassium Chloride (Kcl 40 Meq Premix Inj) 40 meq in 100 mls @ 25 mls/hr IV.SIG UNSCH PRN PRN Reason: For Potassium 3.3 - 3.5 mEq/L Potassium Chloride (Kcl 20 Meq Premix Inj) 20 meq in 100 mls @ 50 mls/hr IV.SIG Q2H PRN PRN Reason: For Potassium 2.8 - 3.2 mEq/L Potassium Phosphate 30 mmol/ (Sodium Chloride) 260 mls @ 42 mls/hr IV.SIG UNSCH PRN PRN Reason: SEE LABEL COMMENTS Sodium Phosphate 30 mmol/ (Sodium Chloride) 260 mls @ 42 mls/hr IV.SIG UNSCH PRN PRN Reason: For Phosphorus < 2.5 mg/dL Levetiracetam 500 mg/ Sodium (Chloride) 105 mls @ 400 mls/hr IV.SIG Q12H CHAO Last Infusion: 05/13/18 10:45 Dose: Infused Fosphenytoin Sodium 100 mgpe/ (Sodium Chloride) 52 mls @ 208 mls/hr IV.SIG Q8HR [facility]AO Last Infusion: 05/13/18 14:24 Dose: Infused Vancomycin HCl 1,250 mg/ (Sodium Chloride) 262.5 mls @ 250 mls/hr IV.SIG Q12H [facility]AO Last Infusion: 05/13/18 14:24 Dose: Infused Insulin Aspart (Novolog Insulin Correctional Sugar Inj) 0 unit SQ Q4HR CHAO; Protocol Last Admin: 05/13/18 16:32 Dose: 2 unit Insulin Detemir (Levemir Inj) 4 unit SQ BID [facility] Last Admin: 05/13/18 08:02 Dose: 4 unit Labetalol HCl (Trandate Inj) 10 mg IV.PUSH Q1H PRN PRN Reason: Sbp>140, Dbp>90, Hr>65 Last Admin: 05/10/18 14:30 Dose: 10 mg Lactulose (Lactulose Liq) 30 ml PO DAILY PRN PRN Reason: SEVERE CONSITIPATION Lactulose (Lactulose Liq) 30 ml PO BID [facility] Last Admin: 05/13/18 08:00 Dose: 30 ml Lorazepam (Ativan Inj) 1 mg IV.PUSH Q1H PRN PRN Reason: SEE LABEL COMMENTS Lorazepam (Ativan Inj) 2 mg IV.PUSH Q1H PRN PRN Reason: SEIZURE ACTIVITY Magnesium Oxide (Mag-Ox) 800 mg PO UNSCH PRN PRN Reason: For Magnesium 1.2 - 1.6 mg/dL Midazolam HCl (Versed Inj) 2 mg IV.PUSH Q1H PRN PRN Reason: SEE LABEL COMMENTS Last Admin: 05/10/18 14:30 Dose: 2 mg Miscellaneous Information ([facility] Ordered Lab Info) 0 each OTHER ONCE ONE Stop: 05/14/18 23:46 Miscellaneous Medication () 1 each OROPHARYNG 0000,0400,1200,1600 [facility] Last Admin: 05/13/18 16:32 Dose: 1 each Morphine Sulfate (Morphine Inj) 2 mg IV.PUSH Q2H PRN PRN Reason: PAIN SCALE 6 TO 10 Ondansetron HCl (Zofran Inj) 4 mg IV.PUSH Q6H PRN PRN Reason: NAUSEA OR VOMITING Pantoprazole Sodium (Protonix Inj) 40 mg IV.PUSH Q24H [facility] Last Admin: 05/13/18 12:04 Dose: 40 mg Pharmacy Profile Note (Vancomycin Consult Pharmacy) 1 each OTHER UNSCH PRN PRN Reason: Pharmacy to dose Phenobarbital Sodium (Luminal Inj) 90 mg IV.PUSH Q8HR [facility] Last Admin: 05/13/18 13:56 Dose: 90 mg Polyethylene Glycol (Miralax) 17 gm PO BID [facility] Last Admin: 05/13/18 08:02 Dose: 17 gm Potassium Bicarb/Potassium Chloride (K-Lyte Cl Eff) 50 meq PO UNSCH PRN PRN Reason: For Potassium 3.3 - 3.5 mEq/L Potassium Phosphate (K-Phos Original) 2,000 mg PO Q4H PRN PRN Reason: Phosphorus Less Than 2.5 mg/dL Last Admin: 05/13/18 09:56 Dose: 2,000 mg Potassium Phosphate (K-Phos Original) 2,000 mg PO UNSCH PRN PRN Reason: SEE LABEL COMMENTS Senna/Docusate Sodium (Lizbeth-Colace) 1 tab PO BID [facility] Last Admin: 05/13/18 08:00 Dose: 1 tab Sennosides (Senokot) 17.2 mg PO Q12H PRN PRN Reason: Moderate Constipation Sodium Chloride (Ns Flush) 2 ml IV.FLUSH BID [facility] Last Admin: 05/13/18 08:02 Dose: 2 ml Sodium Chloride (Ns Flush) 2 ml IV.FLUSH PRN PRN PRN Reason: FLUSH AFTER USING IV ACCESS Sodium Chloride (Ns Flush) 0 ml IV.FLUSH DAILY [facility] Last Admin: 05/13/18 08:02 Dose: 6 ml Terbutaline Sulfate (Brethine Inj) 1 mg SQ UNSCH PRN PRN Reason: For Extravasation Allergies Allergy/AdvReac Type Severity Reaction Status Date / Time No Known Allergies Allergy Uncoded 02/17/15 12:05 Home Medications Medication Instructions Recorded Confirmed Type No Known Home Medications 05/08/18 05/08/18 History Physical Exam Vital Signs: Vital Signs - 24 hr 05/12/18 20:00 05/12/18 20:09 05/12/18 22:00 Temperature 100.2 F H Pulse Rate 90 90 86 Respiratory Rate 16 20 Blood Pressure 127/68 Pulse Oximetry 97 98 05/12/18 23:40 05/13/18 00:00 05/13/18 03:57 Temperature 99.9 F H Pulse Rate 83 83 77 Respiratory Rate 15 15 15 Blood Pressure 117/69 Pulse Oximetry 97 97 05/13/18 04:00 05/13/18 04:21 05/13/18 07:00 Temperature 99.9 F H 99.9 F H Pulse Rate 76 80 Respiratory Rate 14 17 14 Blood Pressure 126/75 123/68 Pulse Oximetry 97 98 99 05/13/18 07:48 05/13/18 07:51 05/13/18 08:00 Temperature 100.0 F H Pulse Rate 74 76 Respiratory Rate 18 17 14 Blood Pressure 121/74 Pulse Oximetry 99 99 05/13/18 09:00 05/13/18 10:00 05/13/18 11:00 Temperature 100.2 F H 100.8 F H 100.6 F H Pulse Rate 80 82 79 Respiratory Rate 14 14 Blood Pressure 136/83 118/68 135/67 Pulse Oximetry 98 93 L 92 L 05/13/18 11:59 05/13/18 12:00 05/13/18 13:00 Temperature 100.6 F H 100.4 F H Pulse Rate 80 81 Respiratory Rate 21 14 14 Blood Pressure 136/79 145/63 H Pulse Oximetry 94 L 92 L 92 L 05/13/18 14:00 05/13/18 15:00 05/13/18 15:15 Temperature 100.6 F H 100.6 F H Pulse Rate 82 78 77 Respiratory Rate 14 14 Blood Pressure 120/78 108/65 Pulse Oximetry 98 97 98 I&O: Intake & Output 05/11/18 05/12/18 05/13/18 05/14/18 06:59 06:59 06:59 06:59 Intake Total 4371 / 4371 4914 / 4914 5500 / 5500 1535 / 1535 Output Total 955 / 955 3800 / 3800 4800 / 4800 Balance 3416 / 3416 1114 / 1114 700 / 700 1535 / 1535 Weight 81.7 kg 83.6 kg 83.5 kg Physical Exam: CONSTITUTIONAL/GENERAL: This is an adequately nourished patient endotracheally intubated on mechanical ventilation. No acute distress. TUBES/LINES/DRAINS: ETT, OG, left IJ central line, Orellana catheter, bilateral SCDs, bilateral soft wrist restraints. SKIN: No jaundice, rashes, or lesions. Ecchymoses on upper extremities. No wounds seen anteriorly. Skin temperature appropriate. Not diaphoretic. HEAD: Atraumatic. Normocephalic. EYES: Pupils equal and round and reactive. Extraocular motions intact. No scleral icterus. No injection or drainage. ENT: Hearing grossly normal. Nose without bleeding or purulent drainage. Moist oral mucosa. ETT, OG in place. NECK: Trachea midline. Supple, nontender. CARDIOVASCULAR: Regular rate and rhythm. Peripheral pulses symmetric. RESPIRATORY/CHEST: Symmetric, unlabored respirations. Clear to auscultation. Breath sounds equal bilaterally. Endotracheally intubated on mechanical ventilation. GASTROINTESTINAL: Abdomen soft, non-tender, nondistended. Bowel sounds present. GENITOURINARY: Without palpable bladder distension. Orellana catheter in place. MUSCULOSKELETAL: Extremities without clubbing, cyanosis, or edema. No mottling or clubbing. NEUROLOGICAL: Sedated. Unresponsive to verbal or tactile stimuli. Not following any commands. PSYCHIATRIC: Unable to assess given the above. Diagnostic Tests Laboratory: Laboratory Results - last 72 hr 05/10/18 05/10/1818 15:55 15:55 16:10 WBC RBC Hgb Hct MCV MCH MCHC RDW Plt Count MPV Neut % (Auto) Lymph % (Auto) [place] % (Auto) Eos % (Auto) Baso % (Auto) Neut # (Auto) Lymph # (Auto) [place] # (Auto) Eos # (Auto) Baso # (Auto) WBC Differential Differential Comment PT 11.6 INR 1.1 APTT 32.3 H Puncture Site Patient Temperature O2 Saturation ABG pH ABG pCO2 ABG pO2 ABG HCO3 ABG O2 Content ABG Base Excess ABG Methemoglobin David Test Hemoglobin Carboxyhemoglobin O2 Delivery Device Vent Setting Inspired O2 Critical Value Sodium 142 Potassium 4.2 D Chloride 111 H Carbon Dioxide 21.2 Anion Gap 10 BUN 11 Creatinine 0.67 Estimated GFR Greater than 89 POC Glucose Random Glucose 155 H Calcium 8.0 L Phosphorus 1.9 L D Magnesium 2.2 Total Bilirubin AST ALT Alkaline Phosphatase Ammonia Total Creatine Kinase CK-MB (CK-2) CK-MB (CK-2) % Troponin I Total Protein Albumin Free T4 1.08 Cancelled Total T3 Cortisol Phenytoin Phenobarbital 05/10/18 05/10/18 05/10/18 17:19 18:21 18:55 WBC RBC Hgb Hct MCV MCH MCHC RDW Plt Count MPV Neut % (Auto) Lymph % (Auto) [place] % (Auto) Eos % (Auto) Baso % (Auto) Neut # (Auto) Lymph # (Auto) [place] # (Auto) Eos # (Auto) Baso # (Auto) WBC Differential Differential Comment PT INR APTT Puncture Site Patient Temperature O2 Saturation ABG pH ABG pCO2 ABG pO2 ABG HCO3 ABG O2 Content ABG Base Excess ABG Methemoglobin David Test Hemoglobin Carboxyhemoglobin O2 Delivery Device Vent Setting Inspired O2 Critical Value Sodium Potassium Chloride Carbon Dioxide Anion Gap BUN Creatinine Estimated GFR POC Glucose 140 H 144 H 151 H Random Glucose Calcium Phosphorus Magnesium Total Bilirubin AST ALT Alkaline Phosphatase Ammonia Total Creatine Kinase CK-MB (CK-2) CK-MB (CK-2) % Troponin I Total Protein Albumin Free T4 Total T3 Cortisol Phenytoin Phenobarbital 05/10/18 05/10/18 05/10/18 20:15 21:13 22:13 WBC RBC Hgb Hct MCV MCH MCHC RDW Plt Count MPV Neut % (Auto) Lymph % (Auto) [place] % (Auto) Eos % (Auto) Baso % (Auto) Neut # (Auto) Lymph # (Auto) [place] # (Auto) Eos # (Auto) Baso # (Auto) WBC Differential Differential Comment PT INR APTT Puncture Site Patient Temperature O2 Saturation ABG pH ABG pCO2 ABG pO2 ABG HCO3 ABG O2 Content ABG Base Excess ABG Methemoglobin David Test Hemoglobin Carboxyhemoglobin O2 Delivery Device Vent Setting Inspired O2 Critical Value Sodium Potassium Chloride Carbon Dioxide Anion Gap BUN Creatinine Estimated GFR POC Glucose 139 H 125 H 122 H Random Glucose Calcium Phosphorus Magnesium Total Bilirubin AST ALT Alkaline Phosphatase Ammonia Total Creatine Kinase CK-MB (CK-2) CK-MB (CK-2) % Troponin I Total Protein Albumin Free T4 Total T3 Cortisol Phenytoin Phenobarbital 05/10/18 05/10/18 05/10/18 22:15 22:15 23:00 WBC RBC Hgb Hct MCV MCH MCHC RDW Plt Count MPV Neut % (Auto) Lymph % (Auto) [place] % (Auto) Eos % (Auto) Baso % (Auto) Neut # (Auto) Lymph # (Auto) [place] # (Auto) Eos # (Auto) Baso # (Auto) WBC Differential Differential Comment PT INR APTT 74.1 H D Puncture Site Patient Temperature O2 Saturation ABG pH ABG pCO2 ABG pO2 ABG HCO3 ABG O2 Content ABG Base Excess ABG Methemoglobin David Test Hemoglobin Carboxyhemoglobin O2 Delivery Device Vent Setting Inspired O2 Critical Value Sodium Potassium Chloride Carbon Dioxide Anion Gap BUN Creatinine Estimated GFR POC Glucose 116 H Random Glucose Calcium Phosphorus Magnesium Total Bilirubin AST ALT Alkaline Phosphatase Ammonia Total Creatine Kinase CK-MB (CK-2) CK-MB (CK-2) % Troponin I Total Protein Albumin Free T4 Total T3 70 Cortisol Phenytoin Phenobarbital 05/11/18 05/11/18 05/11/18 00:00 01:02 01:52 WBC RBC Hgb Hct MCV MCH MCHC RDW Plt Count MPV Neut % (Auto) Lymph % (Auto) [place] % (Auto) Eos % (Auto) Baso % (Auto) Neut # (Auto) Lymph # (Auto) [place] # (Auto) Eos # (Auto) Baso # (Auto) WBC Differential Differential Comment PT INR APTT Puncture Site Patient Temperature O2 Saturation ABG pH ABG pCO2 ABG pO2 ABG HCO3 ABG O2 Content ABG Base Excess ABG Methemoglobin David Test Hemoglobin Carboxyhemoglobin O2 Delivery Device Vent Setting Inspired O2 Critical Value Sodium Potassium Chloride Carbon Dioxide Anion Gap BUN Creatinine Estimated GFR POC Glucose 132 H 121 H 118 H Random Glucose Calcium Phosphorus Magnesium Total Bilirubin AST ALT Alkaline Phosphatase Ammonia Total Creatine Kinase CK-MB (CK-2) CK-MB (CK-2) % Troponin I Total Protein Albumin Free T4 Total T3 Cortisol Phenytoin Phenobarbital 05/11/18 05/11/18 05/11/18 03:02 03:56 05:08 WBC 14.2 H RBC 4.75 Hgb 13.4 Hct 40.7 MCV 85.8 MCH 28.3 MCHC 33.0 RDW 15.0 Plt Count 180 MPV 8.1 Neut % (Auto) 89.1 H Lymph % (Auto) 6.5 L [place] % (Auto) 3.8 Eos % (Auto) 0.5 Baso % (Auto) 0.1 Neut # (Auto) 12.6 H Lymph # (Auto) 0.9 L [place] # (Auto) 0.5 Eos # (Auto) 0.1 Baso # (Auto) 0.0 WBC Differential . Differential Comment Auto diff final PT INR APTT Puncture Site Patient Temperature O2 Saturation ABG pH ABG pCO2 ABG pO2 ABG HCO3 ABG O2 Content ABG Base Excess ABG Methemoglobin David Test Hemoglobin Carboxyhemoglobin O2 Delivery Device Vent Setting Inspired O2 Critical Value Sodium Potassium Chloride Carbon Dioxide Anion Gap BUN Creatinine Estimated GFR POC Glucose 117 H 137 H Random Glucose Calcium Phosphorus Magnesium Total Bilirubin AST ALT Alkaline Phosphatase Ammonia Total Creatine Kinase CK-MB (CK-2) CK-MB (CK-2) % Troponin I Total Protein Albumin Free T4 Total T3 Cortisol Phenytoin Phenobarbital 05/11/18 05/11/18 05/11/18 05:08 05:08 05:08 WBC RBC Hgb Hct MCV MCH MCHC RDW Plt Count MPV Neut % (Auto) Lymph % (Auto) [place] % (Auto) Eos % (Auto) Baso % (Auto) Neut # (Auto) Lymph # (Auto) [place] # (Auto) Eos # (Auto) Baso # (Auto) WBC Differential Differential Comment PT INR APTT 63.4 H Puncture Site Patient Temperature O2 Saturation ABG pH ABG pCO2 ABG pO2 ABG HCO3 ABG O2 Content ABG Base Excess ABG Methemoglobin David Test Hemoglobin Carboxyhemoglobin O2 Delivery Device Vent Setting Inspired O2 Critical Value Sodium 145 Potassium 3.4 L D Chloride 113 H Carbon Dioxide 26.1 Anion Gap 6 BUN 11 Creatinine 0.57 L Estimated GFR Greater than 89 POC Glucose Random Glucose 144 H Calcium 7.7 L Phosphorus 1.9 L Magnesium 2.1 Total Bilirubin 0.5 AST 125 H ALT 69 Alkaline Phosphatase 55 Ammonia 23 Total Creatine Kinase 582 H CK-MB (CK-2) 123.3 H CK-MB (CK-2) % 21.2 H* Troponin I 31.30 H* Total Protein 5.2 L D Albumin 2.5 L D Free T4 Total T3 Cortisol Phenytoin Phenobarbital 05/11/18 05/11/18 05/11/18 05:09 05:48 06:57 WBC RBC Hgb Hct MCV MCH MCHC RDW Plt Count MPV Neut % (Auto) Lymph % (Auto) [place] % (Auto) Eos % (Auto) Baso % (Auto) Neut # (Auto) Lymph # (Auto) [place] # (Auto) Eos # (Auto) Baso # (Auto) WBC Differential Differential Comment PT INR APTT Puncture Site Patient Temperature O2 Saturation ABG pH ABG pCO2 ABG pO2 ABG HCO3 ABG O2 Content ABG Base Excess ABG Methemoglobin David Test Hemoglobin Carboxyhemoglobin O2 Delivery Device Vent Setting Inspired O2 Critical Value Sodium Potassium Chloride Carbon Dioxide Anion Gap BUN Creatinine Estimated GFR POC Glucose 132 H 109 136 H Random Glucose Calcium Phosphorus Magnesium Total Bilirubin AST ALT Alkaline Phosphatase Ammonia Total Creatine Kinase CK-MB (CK-2) CK-MB (CK-2) % Troponin I Total Protein Albumin Free T4 Total T3 Cortisol Phenytoin Phenobarbital 05/11/18 05/11/18 05/11/18 07:59 09:04 09:55 WBC RBC Hgb Hct MCV MCH MCHC RDW Plt Count MPV Neut % (Auto) Lymph % (Auto) [place] % (Auto) Eos % (Auto) Baso % (Auto) Neut # (Auto) Lymph # (Auto) [place] # (Auto) Eos # (Auto) Baso # (Auto) WBC Differential Differential Comment PT INR APTT Puncture Site Patient Temperature O2 Saturation ABG pH ABG pCO2 ABG pO2 ABG HCO3 ABG O2 Content ABG Base Excess ABG Methemoglobin David Test Hemoglobin Carboxyhemoglobin O2 Delivery Device Vent Setting Inspired O2 Critical Value Sodium Potassium Chloride Carbon Dioxide Anion Gap BUN Creatinine Estimated GFR POC Glucose 132 H 167 H 121 H Random Glucose Calcium Phosphorus Magnesium Total Bilirubin AST ALT Alkaline Phosphatase Ammonia Total Creatine Kinase CK-MB (CK-2) CK-MB (CK-2) % Troponin I Total Protein Albumin Free T4 Total T3 Cortisol Phenytoin Phenobarbital 05/11/18 05/11/18 05/11/18 11:12 16:01 18:24 WBC RBC Hgb Hct MCV MCH MCHC RDW Plt Count MPV Neut % (Auto) Lymph % (Auto) [place] % (Auto) Eos % (Auto) Baso % (Auto) Neut # (Auto) Lymph # (Auto) [place] # (Auto) Eos # (Auto) Baso # (Auto) WBC Differential Differential Comment PT INR APTT Puncture Site Patient Temperature O2 Saturation ABG pH ABG pCO2 ABG pO2 ABG HCO3 ABG O2 Content ABG Base Excess ABG Methemoglobin David Test Hemoglobin Carboxyhemoglobin O2 Delivery Device Vent Setting Inspired O2 Critical Value Sodium 142 Potassium 3.6 Chloride 108 H Carbon Dioxide 27.5 Anion Gap 7 BUN 10 Creatinine 0.67 Estimated GFR Greater than 89 POC Glucose 162 H 169 H Random Glucose 175 H Calcium 7.9 L Phosphorus 2.6 Magnesium 1.9 Total Bilirubin AST ALT Alkaline Phosphatase Ammonia Total Creatine Kinase CK-MB (CK-2) CK-MB (CK-2) % Troponin I Total Protein Albumin Free T4 Total T3 Cortisol Phenytoin Phenobarbital 05/11/18 05/12/18 05/12/18 20:44 00:42 04:18 WBC RBC Hgb Hct MCV MCH MCHC RDW Plt Count MPV Neut % (Auto) Lymph % (Auto) [place] % (Auto) Eos % (Auto) Baso % (Auto) Neut # (Auto) Lymph # (Auto) [place] # (Auto) Eos # (Auto) Baso # (Auto) WBC Differential Differential Comment PT INR APTT Puncture Site Patient Temperature O2 Saturation ABG pH ABG pCO2 ABG pO2 ABG HCO3 ABG O2 Content ABG Base Excess ABG Methemoglobin David Test Hemoglobin Carboxyhemoglobin O2 Delivery Device Vent Setting Inspired O2 Critical Value Sodium Potassium Chloride Carbon Dioxide Anion Gap BUN Creatinine Estimated GFR POC Glucose 188 H 131 H 163 H Random Glucose Calcium Phosphorus Magnesium Total Bilirubin AST ALT Alkaline Phosphatase Ammonia Total Creatine Kinase CK-MB (CK-2) CK-MB (CK-2) % Troponin I Total Protein Albumin Free T4 Total T3 Cortisol Phenytoin Phenobarbital 05/12/18 05/12/18 05/12/18 04:45 04:45 04:45 WBC 13.9 H RBC 4.52 Hgb 12.7 L Hct 38.6 L MCV 85.4 MCH 28.0 MCHC 32.8 RDW 14.9 Plt Count 187 MPV 8.0 Neut % (Auto) 89.8 H Lymph % (Auto) 4.9 L [place] % (Auto) 3.4 Eos % (Auto) 1.5 Baso % (Auto) 0.4 Neut # (Auto) 12.5 H Lymph # (Auto) 0.7 L [place] # (Auto) 0.5 Eos # (Auto) 0.2 Baso # (Auto) 0.1 WBC Differential . Differential Comment Auto diff final PT INR APTT Puncture Site Patient Temperature O2 Saturation ABG pH ABG pCO2 ABG pO2 ABG HCO3 ABG O2 Content ABG Base Excess ABG Methemoglobin David Test Hemoglobin Carboxyhemoglobin O2 Delivery Device Vent Setting Inspired O2 Critical Value Sodium 144 Potassium 3.2 L Chloride 109 H Carbon Dioxide 27.2 Anion Gap 8 BUN 11 Creatinine 0.69 Estimated GFR Greater than 89 POC Glucose Random Glucose 211 H Calcium 7.9 L Phosphorus 1.7 L Magnesium 1.8 Total Bilirubin 0.5 AST 80 H ALT 52 Alkaline Phosphatase 60 Ammonia 17 Total Creatine Kinase 721 H CK-MB (CK-2) 27.5 H CK-MB (CK-2) % 3.8 Troponin I 16.00 H* Total Protein 5.2 L Albumin 2.1 L Free T4 Total T3 Cortisol Phenytoin Phenobarbital 05/12/18 05/12/18 05/12/18 07:00 08:12 11:30 WBC RBC Hgb Hct MCV MCH MCHC RDW Plt Count MPV Neut % (Auto) Lymph % (Auto) [place] % (Auto) Eos % (Auto) Baso % (Auto) Neut # (Auto) Lymph # (Auto) [place] # (Auto) Eos # (Auto) Baso # (Auto) WBC Differential Differential Comment PT INR APTT 62.0 H Puncture Site Patient Temperature O2 Saturation ABG pH ABG pCO2 ABG pO2 ABG HCO3 ABG O2 Content ABG Base Excess ABG Methemoglobin Davdi Test Hemoglobin Carboxyhemoglobin O2 Delivery Device Vent Setting Inspired O2 Critical Value Sodium Potassium Chloride Carbon Dioxide Anion Gap BUN Creatinine Estimated GFR POC Glucose 184 H Random Glucose Calcium Phosphorus 1.8 L Magnesium Total Bilirubin AST ALT Alkaline Phosphatase Ammonia Total Creatine Kinase CK-MB (CK-2) CK-MB (CK-2) % Troponin I Total Protein Albumin Free T4 Total T3 Cortisol Phenytoin 10.4 Phenobarbital Less than 2.1 L 05/12/18 05/12/18 05/12/18 11:40 20:27 22:25 WBC RBC Hgb Hct MCV MCH MCHC RDW Plt Count MPV Neut % (Auto) Lymph % (Auto) [place] % (Auto) Eos % (Auto) Baso % (Auto) Neut # (Auto) Lymph # (Auto) [place] # (Auto) Eos # (Auto) Baso # (Auto) WBC Differential Differential Comment PT INR APTT 47.9 H D Puncture Site Patient Temperature O2 Saturation ABG pH ABG pCO2 ABG pO2 ABG HCO3 ABG O2 Content ABG Base Excess ABG Methemoglobin David Test Hemoglobin Carboxyhemoglobin O2 Delivery Device Vent Setting Inspired O2 Critical Value Sodium Potassium Chloride Carbon Dioxide Anion Gap BUN Creatinine Estimated GFR POC Glucose 164 H 217 H Random Glucose Calcium Phosphorus Magnesium Total Bilirubin AST ALT Alkaline Phosphatase Ammonia Total Creatine Kinase CK-MB (CK-2) CK-MB (CK-2) % Troponin I Total Protein Albumin Free T4 Total T3 Cortisol Phenytoin Phenobarbital 05/12/18 05/12/18 05/13/18 23:55 23:55 04:25 WBC 15.6 H RBC 4.44 L Hgb 12.7 L Hct 37.5 L MCV 84.5 MCH 28.5 MCHC 33.8 RDW 15.0 Plt Count 220 MPV 8.7 Neut % (Auto) 89.3 H Lymph % (Auto) 4.8 L [place] % (Auto) 4.8 Eos % (Auto) 0.8 Baso % (Auto) 0.3 Neut # (Auto) 13.9 H Lymph # (Auto) 0.7 L [place] # (Auto) 0.7 Eos # (Auto) 0.1 Baso # (Auto) 0.1 WBC Differential . Differential Comment Auto diff final PT INR APTT Puncture Site Patient Temperature O2 Saturation ABG pH ABG pCO2 ABG pO2 ABG HCO3 ABG O2 Content ABG Base Excess ABG Methemoglobin David Test Hemoglobin Carboxyhemoglobin O2 Delivery Device Vent Setting Inspired O2 Critical Value Sodium Potassium 3.7 Chloride Carbon Dioxide Anion Gap BUN Creatinine Estimated GFR POC Glucose 216 H Random Glucose Calcium Phosphorus 2.3 L Magnesium Total Bilirubin AST ALT Alkaline Phosphatase Ammonia Total Creatine Kinase CK-MB (CK-2) CK-MB (CK-2) % Troponin I Total Protein Albumin Free T4 Total T3 Cortisol Phenytoin Phenobarbital 05/13/18 05/13/18 05/13/18 04:25 04:25 04:26 WBC RBC Hgb Hct MCV MCH MCHC RDW Plt Count MPV Neut % (Auto) Lymph % (Auto) [place] % (Auto) Eos % (Auto) Baso % (Auto) Neut # (Auto) Lymph # (Auto) [place] # (Auto) Eos # (Auto) Baso # (Auto) WBC Differential Differential Comment PT INR APTT 43.0 H Puncture Site Patient Temperature O2 Saturation ABG pH ABG pCO2 ABG pO2 ABG HCO3 ABG O2 Content ABG Base Excess ABG Methemoglobin David Test Hemoglobin Carboxyhemoglobin O2 Delivery Device Vent Setting Inspired O2 Critical Value Sodium 145 Potassium 3.9 Chloride 109 H Carbon Dioxide 29.9 Anion Gap 6 BUN 15 Creatinine 0.81 Estimated GFR Greater than 89 POC Glucose 238 H Random Glucose 257 H Calcium 8.1 L Phosphorus 2.1 L Magnesium 2.2 Total Bilirubin 0.4 AST 67 H ALT 51 Alkaline Phosphatase 85 Ammonia Total Creatine Kinase CK-MB (CK-2) CK-MB (CK-2) % Troponin I Total Protein 5.5 L Albumin 2.0 L Free T4 Total T3 Cortisol Phenytoin 12.7 Phenobarbital 3.1 L 05/13/18 05/13/18 05/13/18 07:09 07:52 09:20 WBC RBC Hgb Hct MCV MCH MCHC RDW Plt Count MPV Neut % (Auto) Lymph % (Auto) [place] % (Auto) Eos % (Auto) Baso % (Auto) Neut # (Auto) Lymph # (Auto) [place] # (Auto) Eos # (Auto) Baso # (Auto) WBC Differential Differential Comment PT INR APTT Puncture Site Janey Patient Temperature 98.6 O2 Saturation 97 ABG pH 7.46 H ABG pCO2 35 L ABG pO2 123 H ABG HCO3 25 ABG O2 Content 17.6 ABG Base Excess 1.2 ABG Methemoglobin 1.4 David Test Present Hemoglobin 12.9 Carboxyhemoglobin 0.7 O2 Delivery Device Ventilator Vent Setting See comments Inspired O2 40 Critical Value No Sodium Potassium Chloride Carbon Dioxide Anion Gap BUN Creatinine Estimated GFR POC Glucose 237 H Random Glucose Calcium Phosphorus Magnesium Total Bilirubin AST ALT Alkaline Phosphatase Ammonia 11 Total Creatine Kinase CK-MB (CK-2) CK-MB (CK-2) % Troponin I Total Protein Albumin Free T4 Total T3 Cortisol Phenytoin Phenobarbital 05/13/18 05/13/18 05/13/18 09:20 11:51 16:11 WBC RBC Hgb Hct MCV MCH MCHC RDW Plt Count MPV Neut % (Auto) Lymph % (Auto) [place] % (Auto) Eos % (Auto) Baso % (Auto) Neut # (Auto) Lymph # (Auto) [place] # (Auto) Eos # (Auto) Baso # (Auto) WBC Differential Differential Comment PT INR APTT Puncture Site Patient Temperature O2 Saturation ABG pH ABG pCO2 ABG pO2 ABG HCO3 ABG O2 Content ABG Base Excess ABG Methemoglobin David Test Hemoglobin Carboxyhemoglobin O2 Delivery Device Vent Setting Inspired O2 Critical Value Sodium Potassium Chloride Carbon Dioxide Anion Gap BUN Creatinine Estimated GFR POC Glucose 304 H 179 H Random Glucose Calcium Phosphorus Magnesium Total Bilirubin AST ALT Alkaline Phosphatase Ammonia Total Creatine Kinase CK-MB (CK-2) CK-MB (CK-2) % Troponin I Total Protein Albumin Free T4 Total T3 Cortisol 23.8 Phenytoin Phenobarbital Result Diagrams: 05/13/18 04:25 05/13/18 04:25 Microbiology: Microbiology 05/09/18 16:00 Aerobic Blood Culture - Preliminary Blood - Line No growth in 4 days Anaerobic Blood Culture - Preliminary No growth in 4 days 05/08/18 21:38 Aerobic Blood Culture - Final Blood - Peripheral No growth in 5 days Anaerobic Blood Culture - Final No growth in 5 days 05/08/18 21:33 Aerobic Blood Culture - Final Blood - Peripheral No growth in 5 days Anaerobic Blood Culture - Final No growth in 5 days Procedures: 05/08: Endotracheal intubation 05/12: Left IJ central line Patient/Family Conference Issues Discussed: * Palliative care role, purpose, approach * Additional medical, psychosocial, and spiritual history * Patients general health, functional status, and cognitive changes in the months leading up to the current hospitalization * Patient/family understanding of the current medical problems * Patient/family understanding of prognosis * Patients goals of care as best understood from advance directives and/or conversations and/or values * Current medical treatment options and benefits/burdens of those options * Likely scenarios comparing ongoing aggressive care with a transition to comfort measures only * Questions answered to the best of my ability * Palliative care contact information provided Assessment and Plan - Disease Oriented Problem List (1) Acute respiratory failure (2) Hypoxic encephalopathy (3) Ischemic cardiomyopathy (4) Cardiac arrest Pertinent Non-Medical Issues: Psychosocial: Patient is . Pending additional information from family. Spiritual: No episcopalian affiliation reported. Legal: Unknown at this time if advanced directives have been completed. Ethical issues impacting care: No ethical issues have been identified. Important Contacts: Patient's Dyan . Prognosis: Mr. Siddiqui is a 63-year-old male with no significant past medical history who presented to ED status post V. fib/V. tach arrest. Clinical course complicated by persistent post anoxic seizures. Overall poor prognosis for meaningful neurological recovery. Patient at high risk for further complications, continued decline and . Code Status: Full Code Plan: * CODE STATUS: Full code at this time. * HEALTHCARE DECISION-MAKING: Patient unable to participate in medical decision making in the setting of anoxic brain. Not likely to regain medical decision making capacity. Unclear at this time if advanced directives have been completed. As per [place] statue in the absence of AD, healthcare proxy decision making falls to patient's Dyan Siddiqui. * GOALS OF CARE: Palliative care meeting with patient's tomorrow Monday 05/14 at 2 PM for further clarifications of goals of care. Overall poor prognosis for a meaningful neurological recovery. * SYMPTOMS: =Pain: Secondary to multiple lines, intubation, bedrest. Currently on fentanyl drip, no signs of discomfort noted during my visit. * Case discussed at length with Dr. Roblero and bedside RN Cortney. * Palliative care to continue to follow-up for further clarifications of goals of care, family support as patient's clinical course continues to evolve. Time Spent Total Floor Time (mins): 50 (Total time to include review on summarization of available medical records to include prior ED visits, physical exam, telephone conversation with patient's , case discussion with attending at bedside RN.) >50% Time in Counseling or Coordination of Care: Yes (Total visit time = 50 minutes; > 50% spent counseling/coordinating care) Appreciation Thank you for the opportunity to participate in the care of Tj Siddiqui. Attestation Attestation: To help prompt me to consider important information that might be impacting today's encounter and assessment, information from prior notes written by myself or my colleagues may have been "brought forward" into today's note. My signature on this note, however, is an attestation that I personally performed the exam, history, and/or decision-making noted today, and, unless otherwise indicated, the interactions with patient, family, and staff as well as the review of records all occurred today. I also attest that the listed assessment and stated plan reflect my best clinical judgment today based on the combination of historical information, prior notes, and today's exam/ interactions. When time spent is documented, it refers only to time spent today by the signer, or if indicated, combined time spent today by collaborating physician/nurse practitioner.
--- NOTE | 2018-05-13 18:18 | MG ---
cc: Sravan Garcia MD ELECTROENCEPHALOGRAM NUMBER: [id number] MEDICATIONS: 1. Fentanyl. 2. Versed. 3. Keppra. 4. Phenobarbital. 5. Fosphenytoin 6. Diprivan. DESCRIPTION: Again, diffuse 2 Hz slowing is noted with some sharp appearing waves seen diffusely a little bit more over the central head region, although somewhat they phase reverse over the midline head region. Could be considered somewhat of a sleep variant, although they look, I think, a little bit more pathological. Photic stimulation is performed without significant posterior driving. IMPRESSION: Still the slight choppy contoured waves are noted, but overall, I would say this is a somewhat slightly improved recording from past. On the transverse montages, some of this activity looks like it could be a sleep variant, but it looks more pathological on the bipolar montage. Clinical correlation is needed. MD ROSALINO Munoz/zen , 05:41 PM , 05:48 PM
[2018-05-14] MEDS: Fosphenytoin Inj 100 MGPE in Sodium Chlor 0.9% Inj 50 ML IV.SIG SCH ×4 (01:21→23:13)
[2018-05-14] MEDS: PHENobarbital Inj 130 MG/ML Vial IV.PUSH SCH ×4 (01:22→23:15)
[2018-05-14] MEDS: Vancomycin Inj 1,250 MG in Sodium Chlor 0.9% Inj 250 ML IV.SIG SCH ×3 (01:30→23:16)
[2018-05-14] MEDS: Insulin NovoLOG Aspart Correctional Sugar Inj SQ SCH ×7 (01:31→23:16)
[2018-05-14] MEDS: Artificial Tears Opth Drops 15 ML Bottle EACH EYE SCH ×4 (01:33→20:05)
[2018-05-14] MEDS: Piperacil/Tazo 4.5 GM Premix 4.5 GM/100 ML BAG IV.SIG SCH ×5 (06:08→23:14)
[2018-05-14] MEDS: Oral Hygiene Kit OROPHARYNG SCH ×5 (06:09→23:16)
[2018-05-14 06:11] LABS: Baso % (Auto) 0.4 % (0.0-2.0); Eos # (Auto) 0.4 th/mm3 (0.0-0.4); Eos % (Auto) 3.6 % (0.0-4.0); Hematocrit 36.3 % (39.0-51.0); Hemoglobin 12.2 gm/dL (13.0-17.0); Lymph # (Auto) 0.9 th/mm3 (1.0-4.8); Lymph % (Auto) 7.6 % (9.0-44.0); Mean Corpuscular HGB Conc 33.6 % (32.0-36.0); Mean Corpuscular Hemoglobin 28.5 pg (27.0-34.0); Mean Corpuscular Volume 85.1 fL (80.0-100.0); Mean Platelet Volume 8.9 fL (7.0-11.0); Mono # (Auto) 0.8 th/mm3 (0.0-0.9); Mono % (Auto) 7.3 % (0.0-8.0); Neut # (Auto) 9.4 th/mm3 (1.8-7.7); Neut % (Auto) 81.1 % (16.0-70.0); Platelet Count 200 th/mm3 (150-450); Red Blood Count 4.26 mil/mm3 (4.50-5.90); Red Cell Distribution Width 15.1 % (11.6-17.2); White Blood Count 11.6 th/mm3 (4.0-11.0)
[2018-05-14 06:37] LABS: Anion Gap 6 meq/L (5-15); Blood Urea Nitrogen 16 mg/dL (7-18); Calcium 8.1 mg/dL (8.5-10.1); Chloride 110 meq/L (98-107); Glomerular Filtration Rate Greater Than 89 mL/min (>89); Glucose,Random 234 mg/dL (74-106); Phosphorus 2.2 mg/dL (2.5-4.9); Potassium 3.7 meq/L (3.5-5.1); Sodium 143 meq/L (136-145)
[2018-05-14 06:41] LABS: Phenytoin (Dilantin) 12.4 mcg/mL (10.0-20.0)
--- NOTE | 2018-05-14 08:17 | P.PNCA ---
Subjective Interval history: Intubated. Sedated. Medications and Allergies Active Medications: Active Medications Acetaminophen (Tylenol) 650 mg PO Q6H PRN PRN Reason: PAIN 1-5 AND/OR FEVER >101F Last Admin: 05/12/18 14:56 Dose: 650 mg Al Hydroxide/Mg Hydroxide (Milk Of Magnmir Liq) 30 ml PO Q12H PRN PRN Reason: Mild Constipation Albuterol (Albuterol Neb (Prn)) 2.5 mg NEB Q2HR NEB PRN PRN Reason: DYSPNEA Albuterol (Duoneb Neb (Chao)) 1 ampul NEB Q4HR NEB [facility] Last Admin: 05/14/18 07:31 Dose: 1 ampul Artificial Tears (Tears Naturale Opth Drops) 1 drop EACH EYE Q8H [facility] Last Admin: 05/14/18 06:10 Dose: 1 drop Aspirin (Aspirin Chew) 81 mg PO DAILY [facility] Last Admin: 05/13/18 08:00 Dose: 81 mg Atorvastatin Calcium (Lipitor) 10 mg PO HS [facility] Last Admin: 05/13/18 20:54 Dose: 10 mg Bisacodyl (Dulcolax Supp) 10 mg RECTAL DAILY PRN PRN Reason: SEVERE CONSITIPATION Carvedilol (Coreg) 3.125 mg PO BID [facility] Last Admin: 05/13/18 08:01 Dose: Not Given Chlorhexidine Gluconate (Peridex 0.12% Oral Kit) 15 ml OROPHARYNG BID@0800, 2000 [facility] Last Admin: 05/13/18 20:56 Dose: 15 ml Dextrose (D50w Vial) 50 ml IV.PUSH UNSCH PRN PRN Reason: PER HYPOGLYCEMIA PROTOCOL Enalapril Maleate (Vasotec) 2.5 mg PO DAILY [facility] Last Admin: 05/12/18 08:47 Dose: 2.5 mg Furosemide (Lasix Inj) 40 mg IV.PUSH DAILY [facility] Last Admin: 05/13/18 08:01 Dose: 40 mg Glucagon (Glucagon Inj) 1 mg OTHER PRN PRN PRN Reason: for Hypoglycemia Protocol Hydralazine HCl (Apresoline Inj) 10 mg IV.PUSH Q1H PRN PRN Reason: Sbp>140, Dbp>90 Last Admin: 05/10/18 08:00 Dose: 10 mg Sodium Chloride (Ns Inj) 1,000 mls @ 84 mls/hr IV.CONT .[id number] [facility] Last Admin: 05/13/18 20:53 Dose: 84 mls/hr Propofol (Diprivan 1000 Mg/100 Ml Inj) 1,000 mg in 100 mls @ 2.449 mls/hr IV.CONT TITRATE PRN; Protocol PRN Reason: Per Protocol Last Admin: 05/13/18 02:38 Dose: 10 mcg/kg/min, 4.9 mls/hr Fentanyl (Fentanyl 10 Mcg/Ml Premix Drip) 2,500 mcg in 250 mls @ 5 mls/hr IV.SIG TITRATE PRN; Protocol PRN Reason: Per Protocol Last Admin: 05/12/18 00:45 Dose: 50 mcg/hr, 5 mls/hr Norepinephrine Bitartrate 16 (mg/ Sodium Chloride) 250 mls @ 1.87 mls/hr IV.CONT TITRATE PRN; Protocol PRN Reason: See Protocol Last Titration: 05/13/18 11:00 Dose: 0 mcg/min, 0 mls/hr Amiodarone HCl 450 mg/ Sodium (Chloride) 250 mls @ 33.33 mls/hr IV.CONT TITRATE PRN; Protocol PRN Reason: Per Protocol Last Admin: 05/12/18 19:47 Dose: 0.5 mg/min, 16.66 mls/hr Heparin Sodium/Dextrose (Heparin/D5w 25,000 U/250 Ml) 25,000 unit in 250 mls @ 0 mls/hr IV.CONT TITRATE PRN; Protocol PRN Reason: Per Protocol Last Admin: 05/13/18 06:31 Dose: 900 units/hr, 9 mls/hr Piperacillin/Tazobactam/Dextrose (Zosyn 4.5 Gm Premix) 4.5 gm in 100 mls @ 200 mls/hr IV.SIG Q6H [facility] Last Admin: 05/14/18 06:08 Dose: 200 mls/hr Midazolam HCl (Versed Inj) 100 mg in 100 mls @ 2 mls/hr IV.CONT TITRATE PRN; Protocol PRN Reason: Per Protocol Last Admin: 05/13/18 20:54 Dose: 4 mg/hr, 4 mls/hr Magnesium Sulfate 4 gm/ Sodium (Chloride) 100 mls @ 50 mls/hr IV.SIG UNSCH PRN PRN Reason: For Magnesium 0.9 - 1.1 mg/dL Magnesium Sulfate 2 gm/ Sodium (Chloride) 100 mls @ 50 mls/hr IV.SIG UNSCH PRN PRN Reason: For Magnesium 1.2 - 1.6 mg/dL Potassium Chloride (Kcl 40 Meq Premix Inj) 40 meq in 100 mls @ 25 mls/hr IV.SIG Q2H PRN PRN Reason: For Potassium 2.8 - 3.2 mEq/L Last Infusion: 05/12/18 14:09 Dose: Infused Potassium Chloride (Kcl 20 Meq Premix Inj) 20 meq in 100 mls @ 50 mls/hr IV.SIG Q2H PRN PRN Reason: For Potassium 3.3 - 3.5 mEq/L Potassium Chloride (Kcl 40 Meq Premix Inj) 40 meq in 100 mls @ 25 mls/hr IV.SIG UNSCH PRN PRN Reason: For Potassium 3.3 - 3.5 mEq/L Potassium Chloride (Kcl 20 Meq Premix Inj) 20 meq in 100 mls @ 50 mls/hr IV.SIG Q2H PRN PRN Reason: For Potassium 2.8 - 3.2 mEq/L Potassium Phosphate 30 mmol/ (Sodium Chloride) 260 mls @ 42 mls/hr IV.SIG UNSCH PRN PRN Reason: SEE LABEL COMMENTS Sodium Phosphate 30 mmol/ (Sodium Chloride) 260 mls @ 42 mls/hr IV.SIG UNSCH PRN PRN Reason: For Phosphorus < 2.5 mg/dL Levetiracetam 500 mg/ Sodium (Chloride) 105 mls @ 400 mls/hr IV.SIG Q12H [facility] Last Admin: 05/14/18 01:32 Dose: 400 mls/hr Fosphenytoin Sodium 100 mgpe/ (Sodium Chloride) 52 mls @ 208 mls/hr IV.SIG Q8HR [facility] Last Admin: 05/14/18 06:10 Dose: 208 mls/hr Vancomycin HCl 1,250 mg/ (Sodium Chloride) 262.5 mls @ 250 mls/hr IV.SIG Q12H [facility] Last Admin: 05/14/18 01:30 Dose: 250 mls/hr Insulin Aspart (Novolog Insulin Correctional Sugar Inj) 0 unit SQ Q4HR [facility]; Protocol Last Admin: 05/14/18 06:09 Dose: 4 unit Insulin Detemir (Levemir Inj) 4 unit SQ BID [facility] Last Admin: 05/13/18 20:53 Dose: 4 unit Labetalol HCl (Trandate Inj) 10 mg IV.PUSH Q1H PRN PRN Reason: Sbp>140, Dbp>90, Hr>65 Last Admin: 05/10/18 14:30 Dose: 10 mg Lactulose (Lactulose Liq) 30 ml PO DAILY PRN PRN Reason: SEVERE CONSITIPATION Lactulose (Lactulose Liq) 30 ml PO BID [facility] Last Admin: 05/14/18 01:33 Dose: 30 ml Lorazepam (Ativan Inj) 1 mg IV.PUSH Q1H PRN PRN Reason: SEE LABEL COMMENTS Lorazepam (Ativan Inj) 2 mg IV.PUSH Q1H PRN PRN Reason: SEIZURE ACTIVITY Magnesium Oxide (Mag-Ox) 800 mg PO UNSCH PRN PRN Reason: For Magnesium 1.2 - 1.6 mg/dL Midazolam HCl (Versed Inj) 2 mg IV.PUSH Q1H PRN PRN Reason: SEE LABEL COMMENTS Last Admin: 05/10/18 14:30 Dose: 2 mg Miscellaneous Information ([facility] Ordered Lab Info) 0 each OTHER ONCE ONE Stop: 05/14/18 23:46 Miscellaneous Medication () 1 each OROPHARYNG 0000,0400,1200,1600 [facility] Last Admin: 05/14/18 06:09 Dose: 1 each Morphine Sulfate (Morphine Inj) 2 mg IV.PUSH Q2H PRN PRN Reason: PAIN SCALE 6 TO 10 Ondansetron HCl (Zofran Inj) 4 mg IV.PUSH Q6H PRN PRN Reason: NAUSEA OR VOMITING Pantoprazole Sodium (Protonix Inj) 40 mg IV.PUSH Q24H [facility] Last Admin: 05/13/18 12:04 Dose: 40 mg Pharmacy Profile Note (Vancomycin Consult Pharmacy) 1 each OTHER UNSCH PRN PRN Reason: Pharmacy to dose Phenobarbital Sodium (Luminal Inj) 90 mg IV.PUSH Q8HR [facility] Last Admin: 05/14/18 01:22 Dose: 90 mg Polyethylene Glycol (Miralax) 17 gm PO BID [facility] Last Admin: 05/13/18 20:54 Dose: 17 gm Potassium Bicarb/Potassium Chloride (K-Lyte Cl Eff) 50 meq PO UNSCH PRN PRN Reason: For Potassium 3.3 - 3.5 mEq/L Potassium Phosphate (K-Phos Original) 2,000 mg PO Q4H PRN PRN Reason: Phosphorus Less Than 2.5 mg/dL Last Admin: 05/13/18 09:56 Dose: 2,000 mg Potassium Phosphate (K-Phos Original) 2,000 mg PO UNSCH PRN PRN Reason: SEE LABEL COMMENTS Senna/Docusate Sodium (Lizbeth-Colace) 1 tab PO BID [facility] Last Admin: 05/13/18 20:54 Dose: 1 tab Sennosides (Senokot) 17.2 mg PO Q12H PRN PRN Reason: Moderate Constipation Sodium Chloride (Ns Flush) 2 ml IV.FLUSH BID [facility] Last Admin: 05/13/18 20:55 Dose: 2 ml Sodium Chloride (Ns Flush) 2 ml IV.FLUSH PRN PRN PRN Reason: FLUSH AFTER USING IV ACCESS Sodium Chloride (Ns Flush) 0 ml IV.FLUSH DAILY [facility] Last Admin: 05/13/18 08:02 Dose: 6 ml Terbutaline Sulfate (Brethine Inj) 1 mg SQ UNSCH PRN PRN Reason: For Extravasation Allergies Allergy/AdvReac Type Severity Reaction Status Date / Time No Known Allergies Allergy Uncoded 02/17/15 12:05 Home Medications Medication Instructions Recorded Confirmed Type No Known Home Medications 05/08/18 05/08/18 History Physical Exam Vital signs: Vital Signs 05/13/18 09:00 05/13/18 10:00 05/13/18 11:00 Temperature 100.2 F H 100.8 F H 100.6 F H Pulse Rate 80 82 79 Respiratory Rate 14 14 Blood Pressure 136/83 118/68 135/67 Pulse Oximetry 98 93 L 92 L 05/13/18 11:59 05/13/18 12:00 05/13/18 13:00 Temperature 100.6 F H 100.4 F H Pulse Rate 80 81 Respiratory Rate 21 14 14 Blood Pressure 136/79 145/63 H Pulse Oximetry 94 L 92 L 92 L 05/13/18 14:00 05/13/18 15:00 05/13/18 15:15 Temperature 100.6 F H 100.6 F H Pulse Rate 82 78 77 Respiratory Rate 14 14 Blood Pressure 120/78 108/65 Pulse Oximetry 98 97 98 05/13/18 16:00 05/13/18 17:00 05/13/18 18:00 Temperature 100.2 F H 100.4 F H 100.4 F H Pulse Rate 76 81 77 Respiratory Rate 14 Blood Pressure 116/67 119/62 109/62 Pulse Oximetry 97 99 97 05/13/18 19:00 05/13/18 20:00 05/13/18 20:04 Temperature 100.6 F H 98.6 F Pulse Rate 79 79 78 Respiratory Rate 14 14 16 Blood Pressure 123/67 138/78 Pulse Oximetry 99 96 99 05/13/18 21:00 05/13/18 22:00 05/13/18 23:00 Temperature 100.5 F H 100.5 F H 101.3 F H Pulse Rate 80 83 81 Respiratory Rate 14 14 Blood Pressure 129/72 126/70 140/78 Pulse Oximetry 98 96 98 05/14/18 00:00 05/14/18 00:33 05/14/18 01:00 Temperature 101.7 F H 102.0 F H Pulse Rate 85 86 86 Respiratory Rate 18 16 14 Blood Pressure 132/72 135/75 Pulse Oximetry 97 97 96 05/14/18 02:00 05/14/18 03:00 05/14/18 03:44 Temperature 101.8 F H 101.1 F H Pulse Rate 85 86 81 Respiratory Rate 14 14 16 Blood Pressure 129/70 134/75 Pulse Oximetry 96 97 98 05/14/18 04:00 05/14/18 05:00 05/14/18 06:00 Temperature 100.6 F H 100.6 F H 101.1 F H Pulse Rate 80 83 81 Respiratory Rate Blood Pressure 139/81 149/75 H 135/79 Pulse Oximetry 99 85 L 96 05/14/18 07:00 05/14/18 07:30 05/14/18 07:31 Temperature 100.9 F H Pulse Rate 81 82 Respiratory Rate 19 18 Blood Pressure 144/79 H Pulse Oximetry 97 97 Intake & Output 05/13/18 05/14/18 05/14/18 18:59 06:59 18:59 Intake Total 2531 / 2531 3612 / 3612 Output Total 4000 / 4000 1450 / 1450 Balance -1469 / -1469 2162 / 2162 Intake: IV 1635 / 1635 1052 / 1052 NS Inj 1,000 ML @ 84 mls/hr IV. 1000 / 1000 1000 / 1000 CONT .[id number] [facility] Rx#:[id number] Cerebyx Inj 100 MGPE In NS Inj 52 / 52 52 / 52 50 ML @ 208 mls/hr IV.SIG Q8HR [facility] Rx#:[id number] Zosyn 4.5 GM Premix 4.5 gm In 200 / 200 100 ml @ 200 mls/hr IV.SIG Q6H [facility] Rx#:[id number] Vancomycin Inj 1,000 MG In NS 15 / 15 Inj 250 ML @ 250 mls/hr IV.SIG Q24H [facility] Rx#:[id number] Vancomycin Inj 1,250 MG In NS 263 / 263 Inj 250 ML @ 250 mls/hr IV.SIG Q12H [facility] Rx#:[id number] Keppra Inj 500 MG In NS Inj 100 105 / 105 ML @ 400 mls/hr IV.SIG Q12H [facility] Rx#:[id number] Tube Feeding 776 / 776 625 / 625 Water Bolus Amount 120 / 120 Other 1935 / 1935 Output: Urine Amount (Catheter) 4000 / 4000 1450 / 1450 Indwelling Temp Sensing 4000 / 4000 1450 / 1450 Catheter Other: Date of Last Bowel Movement 05/13/18 05/13/18 # Incontinent Bowel Movements 1 - Constitutional Comments: Intubated. Sedated. - Routine Neck Exam Absent: JVD - Routine Respiratory Exam Comments: Lungs clear anteriorly. - Routine Abdominal Exam Present: soft, normoactive bowel sounds. Absent: organomegaly - Routine Extremities Exam Absent: cyanosis, clubbing, edema - Urinary Catheter Management Indwelling Temp Sensing Catheter Cath placed during this visit: yes Reason for continuing: Terminally ill/Comfort care Insertion date: 05/08/18 Insertion time: 22:40 Results 05/14/18 04:05 05/14/18 04:05 Cardiac Enzymes 05/13/18 05/14/18 Range/Units 04:25 04:05 AST 67 H (15-37) U/L Troponin I 12.50 H* (0.02-0.05) ng/mL Coagulation 05/12/18 05/12/18 05/13/18 Range/Units 07:00 22:25 04:25 APTT 62.0 H 47.9 H D 43.0 H (23.4-31.7) sec 05/14/18 Range/Units 04:05 APTT 42.0 H (23.4-31.7) sec CBC 05/13/18 05/14/18 Range/Units 04:25 04:05 WBC 15.6 H 11.6 H (4.0-11.0) th/mm3 RBC 4.44 L 4.26 L (4.50-5.90) mil/mm3 Hgb 12.7 L 12.2 L (13.0-17.0) gm/dL Hct 37.5 L 36.3 L (39.0-51.0) % Plt Count 220 200 (150-450) th/mm3 Neut # (Auto) 13.9 H 9.4 H (1.8-7.7) th/mm3 Lymph # (Auto) 0.7 L 0.9 L (1.0-4.8) th/mm3 [place] # (Auto) 0.7 0.8 (0.0-0.9) th/mm3 Eos # (Auto) 0.1 0.4 (0.0-0.4) th/mm3 Baso # (Auto) 0.1 0.0 (0.0-0.2) th/mm3 Comprehensive Metabolic Panel 05/12/18 05/13/18 05/14/18 Range/Units 23:55 04:25 04:05 Sodium 145 143 (136-145) meq/L Potassium 3.7 3.9 3.7 (3.5-5.1) meq/L Chloride 109 H 110 H (98-107) meq/L Carbon Dioxide 29.9 27.0 (21.0-32.0) meq/L BUN 15 16 (7-18) mg/dL Creatinine 0.81 0.65 (0.60-1.30) mg/dL Calcium 8.1 L 8.1 L (8.5-10.1) mg/dL AST 67 H (15-37) U/L ALT 51 (12-78) U/L Alkaline Phosphatase 85 (45-117) U/L Total Protein 5.5 L (6.4-8.2) g/dL Albumin 2.0 L (3.4-5.0) g/dL Intake and Output 05/13/18 05/14/18 05/14/18 22:59 06:59 14:59 Intake Total 1995 2612 / 2612 Output Total 4000 / 4000 1450 / 1450 Balance -2003 / -2003 1162 / 1162 Intake: IV 1100 / 1100 52 / 52 NS Inj 1,000 ML @ 84 mls/hr IV. 1000 / 1000 CONT .[id number] [facility] Rx#:[id number] Cerebyx Inj 100 MGPE In NS Inj 52 / 52 50 ML @ 208 mls/hr IV.SIG Q8HR [facility] Rx#:[id number] Zosyn 4.5 GM Premix 4.5 gm In 100 / 100 100 ml @ 200 mls/hr IV.SIG Q6H [facility] Rx#:[id number] Tube Feeding 776 / 776 625 / 625 Water Bolus Amount 120 / 120 Other 1935 / 1935 Output: Urine Amount (Catheter) 4000 / 4000 1450 / 1450 Indwelling Temp Sensing 4000 / 4000 1450 / 1450 Catheter Other: Date of Last Bowel Movement 05/13/18 05/13/18 # Incontinent Bowel Movements 1 - Imaging and Cardiology Imaging: Impressions Chest X-Ray 05/12/18 11:03 CONCLUSION: 1. Central line without pneumothorax. 2. Unchanged bilateral pleural effusions and bibasilar pulmonary infiltrates. Chest X-Ray 05/13/18 06:00 CONCLUSION: No significant interval change with persistent bilateral pulmonary parenchymal opacity and small bilateral pleural effusions. Assessment and Plan - Assessment (1) ST elevation (STEMI) myocardial infarction involving left anterior descending coronary artery Code(s): I21.02 - ST elevation (STEMI) myocardial infarction involving left anterior descending coronary artery Status: Acute Plan: Cardiac status overall remains unchanged. Echo suggests patient sustained large LAD coronary territory infarction, EF ~30%. Recommend conservative management unless he has meaningful neurological recovery. Continue MAURILIO-I, aspirin, beta eleuterio. OK to stop heparin drip from my standpoint. Will f/u as needed. Please call if patient demonstrates significant neurological recovery. (2) Cardiac arrest Code(s): I46.9 - Cardiac arrest, cause unspecified Status: Acute Plan: No further ventricular tachyarrhythmias. Can change to oral Amiodarone. Consider ICD implant if he neurologically recovers. (3) Ischemic cardiomyopathy Code(s): I25.5 - Ischemic cardiomyopathy Status: Acute Plan: EF ~30% by echo. Recommend continue attempts to diurese, continue MAURILIO-I, beta eleuterio. - Plan Code Status: full code
[2018-05-14] MEDS: Senna/Docusate Sodium 8.6/50 MG Tablet PO SCH ×2 (08:24→20:05)
[2018-05-14] MEDS: Chlorhexidine 0.12% Oral Kit 15 ML UDC OROPHARYNG SCH ×2 (08:25→20:03)
--- NOTE | 2018-05-14 08:54 | P.PNNEU ---
Subjective Subjective Comments: no acute events Active Medications: Active Medications Acetaminophen (Tylenol) 650 mg PO Q6H PRN PRN Reason: PAIN 1-5 AND/OR FEVER >101F Last Admin: 05/12/18 14:56 Dose: 650 mg Al Hydroxide/Mg Hydroxide (Milk Of Magnmir Liq) 30 ml PO Q12H PRN PRN Reason: Mild Constipation Albuterol (Albuterol Neb (Prn)) 2.5 mg NEB Q2HR NEB PRN PRN Reason: DYSPNEA Albuterol (Duoneb Neb ([facility])) 1 ampul NEB Q4HR NEB [facility] Last Admin: 05/14/18 07:31 Dose: 1 ampul Amiodarone HCl (Cordarone) 400 mg PO DAILY [facility] Artificial Tears (Tears Naturale Opth Drops) 1 drop EACH EYE Q8H [facility] Last Admin: 05/14/18 06:10 Dose: 1 drop Aspirin (Aspirin Chew) 81 mg PO DAILY [facility] Last Admin: 05/14/18 08:24 Dose: 81 mg Atorvastatin Calcium (Lipitor) 10 mg PO HS [facility] Last Admin: 05/13/18 20:54 Dose: 10 mg Bisacodyl (Dulcolax Supp) 10 mg RECTAL DAILY PRN PRN Reason: SEVERE CONSITIPATION Carvedilol (Coreg) 3.125 mg PO BID [facility] Last Admin: 05/13/18 08:01 Dose: Not Given Chlorhexidine Gluconate (Peridex 0.12% Oral Kit) 15 ml OROPHARYNG BID@0800, 2000 [facility] Last Admin: 05/14/18 08:25 Dose: 15 ml Dextrose (D50w Vial) 50 ml IV.PUSH UNSCH PRN PRN Reason: PER HYPOGLYCEMIA PROTOCOL Enalapril Maleate (Vasotec) 2.5 mg PO DAILY [facility] Last Admin: 05/12/18 08:47 Dose: 2.5 mg Furosemide (Lasix Inj) 40 mg IV.PUSH DAILY [facility] Last Admin: 05/14/18 08:24 Dose: 40 mg Glucagon (Glucagon Inj) 1 mg OTHER PRN PRN PRN Reason: for Hypoglycemia Protocol Hydralazine HCl (Apresoline Inj) 10 mg IV.PUSH Q1H PRN PRN Reason: Sbp>140, Dbp>90 Last Admin: 05/10/18 08:00 Dose: 10 mg Sodium Chloride (Ns Inj) 1,000 mls @ 84 mls/hr IV.CONT .[id number] [facility] Last Admin: 05/13/18 20:53 Dose: 84 mls/hr Propofol (Diprivan 1000 Mg/100 Ml Inj) 1,000 mg in 100 mls @ 2.449 mls/hr IV.CONT TITRATE PRN; Protocol PRN Reason: Per Protocol Last Admin: 05/13/18 02:38 Dose: 10 mcg/kg/min, 4.9 mls/hr Fentanyl (Fentanyl 10 Mcg/Ml Premix Drip) 2,500 mcg in 250 mls @ 5 mls/hr IV.SIG TITRATE PRN; Protocol PRN Reason: Per Protocol Last Admin: 05/12/18 00:45 Dose: 50 mcg/hr, 5 mls/hr Norepinephrine Bitartrate 16 (mg/ Sodium Chloride) 250 mls @ 1.87 mls/hr IV.CONT TITRATE PRN; Protocol PRN Reason: See Protocol Last Titration: 05/13/18 11:00 Dose: 0 mcg/min, 0 mls/hr Heparin Sodium/Dextrose (Heparin/D5w 25,000 U/250 Ml) 25,000 unit in 250 mls @ 0 mls/hr IV.CONT TITRATE PRN; Protocol PRN Reason: Per Protocol Last Admin: 05/13/18 06:31 Dose: 900 units/hr, 9 mls/hr Piperacillin/Tazobactam/Dextrose (Zosyn 4.5 Gm Premix) 4.5 gm in 100 mls @ 200 mls/hr IV.SIG Q6H [facility] Last Admin: 05/14/18 06:08 Dose: 200 mls/hr Midazolam HCl (Versed Inj) 100 mg in 100 mls @ 2 mls/hr IV.CONT TITRATE PRN; Protocol PRN Reason: Per Protocol Last Admin: 05/13/18 20:54 Dose: 4 mg/hr, 4 mls/hr Magnesium Sulfate 4 gm/ Sodium (Chloride) 100 mls @ 50 mls/hr IV.SIG UNSCH PRN PRN Reason: For Magnesium 0.9 - 1.1 mg/dL Magnesium Sulfate 2 gm/ Sodium (Chloride) 100 mls @ 50 mls/hr IV.SIG UNSCH PRN PRN Reason: For Magnesium 1.2 - 1.6 mg/dL Potassium Chloride (Kcl 40 Meq Premix Inj) 40 meq in 100 mls @ 25 mls/hr IV.SIG Q2H PRN PRN Reason: For Potassium 2.8 - 3.2 mEq/L Last Infusion: 05/12/18 14:09 Dose: Infused Potassium Chloride (Kcl 20 Meq Premix Inj) 20 meq in 100 mls @ 50 mls/hr IV.SIG Q2H PRN PRN Reason: For Potassium 3.3 - 3.5 mEq/L Potassium Chloride (Kcl 40 Meq Premix Inj) 40 meq in 100 mls @ 25 mls/hr IV.SIG UNSCH PRN PRN Reason: For Potassium 3.3 - 3.5 mEq/L Potassium Chloride (Kcl 20 Meq Premix Inj) 20 meq in 100 mls @ 50 mls/hr IV.SIG Q2H PRN PRN Reason: For Potassium 2.8 - 3.2 mEq/L Potassium Phosphate 30 mmol/ (Sodium Chloride) 260 mls @ 42 mls/hr IV.SIG UNSCH PRN PRN Reason: SEE LABEL COMMENTS Sodium Phosphate 30 mmol/ (Sodium Chloride) 260 mls @ 42 mls/hr IV.SIG UNSCH PRN PRN Reason: For Phosphorus < 2.5 mg/dL Levetiracetam 500 mg/ Sodium (Chloride) 105 mls @ 400 mls/hr IV.SIG Q12H [facility] Last Admin: 05/14/18 01:32 Dose: 400 mls/hr Fosphenytoin Sodium 100 mgpe/ (Sodium Chloride) 52 mls @ 208 mls/hr IV.SIG Q8HR [facility] Last Admin: 05/14/18 06:10 Dose: 208 mls/hr Vancomycin HCl 1,250 mg/ (Sodium Chloride) 262.5 mls @ 250 mls/hr IV.SIG Q12H [facility] Last Admin: 05/14/18 01:30 Dose: 250 mls/hr Insulin Aspart (Novolog Insulin Correctional Sugar Inj) 0 unit SQ Q4HR [facility]; Protocol Last Admin: 05/14/18 08:29 Dose: 4 unit Insulin Detemir (Levemir Inj) 4 unit SQ BID [facility] Last Admin: 05/13/18 20:53 Dose: 4 unit Labetalol HCl (Trandate Inj) 10 mg IV.PUSH Q1H PRN PRN Reason: Sbp>140, Dbp>90, Hr>65 Last Admin: 05/10/18 14:30 Dose: 10 mg Lactulose (Lactulose Liq) 30 ml PO DAILY PRN PRN Reason: SEVERE CONSITIPATION Lactulose (Lactulose Liq) 30 ml PO BID [facility] Last Admin: 05/14/18 01:33 Dose: 30 ml Lorazepam (Ativan Inj) 1 mg IV.PUSH Q1H PRN PRN Reason: SEE LABEL COMMENTS Lorazepam (Ativan Inj) 2 mg IV.PUSH Q1H PRN PRN Reason: SEIZURE ACTIVITY Magnesium Oxide (Mag-Ox) 800 mg PO UNSCH PRN PRN Reason: For Magnesium 1.2 - 1.6 mg/dL Midazolam HCl (Versed Inj) 2 mg IV.PUSH Q1H PRN PRN Reason: SEE LABEL COMMENTS Last Admin: 05/10/18 14:30 Dose: 2 mg Miscellaneous Information ([facility] Ordered Lab Info) 0 each OTHER ONCE ONE Stop: 05/14/18 23:46 Miscellaneous Medication () 1 each OROPHARYNG 0000,0400,1200,1600 [facility] Last Admin: 05/14/18 06:09 Dose: 1 each Morphine Sulfate (Morphine Inj) 2 mg IV.PUSH Q2H PRN PRN Reason: PAIN SCALE 6 TO 10 Ondansetron HCl (Zofran Inj) 4 mg IV.PUSH Q6H PRN PRN Reason: NAUSEA OR VOMITING Pantoprazole Sodium (Protonix Inj) 40 mg IV.PUSH Q24H [facility] Last Admin: 05/13/18 12:04 Dose: 40 mg Pharmacy Profile Note (Vancomycin Consult Pharmacy) 1 each OTHER UNSCH PRN PRN Reason: Pharmacy to dose Phenobarbital Sodium (Luminal Inj) 90 mg IV.PUSH Q8HR [facility] Last Admin: 05/14/18 01:22 Dose: 90 mg Polyethylene Glycol (Miralax) 17 gm PO BID [facility] Last Admin: 05/13/18 20:54 Dose: 17 gm Potassium Bicarb/Potassium Chloride (K-Lyte Cl Eff) 50 meq PO UNSCH PRN PRN Reason: For Potassium 3.3 - 3.5 mEq/L Potassium Phosphate (K-Phos Original) 2,000 mg PO Q4H PRN PRN Reason: Phosphorus Less Than 2.5 mg/dL Last Admin: 05/13/18 09:56 Dose: 2,000 mg Potassium Phosphate (K-Phos Original) 2,000 mg PO UNSCH PRN PRN Reason: SEE LABEL COMMENTS Senna/Docusate Sodium (Lizbeth-Colace) 1 tab PO BID [facility] Last Admin: 05/14/18 08:24 Dose: 1 tab Sennosides (Senokot) 17.2 mg PO Q12H PRN PRN Reason: Moderate Constipation Sodium Chloride (Ns Flush) 2 ml IV.FLUSH BID [facility] Last Admin: 05/13/18 20:55 Dose: 2 ml Sodium Chloride (Ns Flush) 2 ml IV.FLUSH PRN PRN PRN Reason: FLUSH AFTER USING IV ACCESS Sodium Chloride (Ns Flush) 0 ml IV.FLUSH DAILY [facility] Last Admin: 05/13/18 08:02 Dose: 6 ml Terbutaline Sulfate (Brethine Inj) 1 mg SQ UNSCH PRN PRN Reason: For Extravasation Allergies/Adverse Reactions: Allergies Allergy/AdvReac Type Severity Reaction Status Date / Time No Known Allergies Allergy Uncoded 02/17/15 12:05 Review of Systems unobtainable due to endotracheal tube, unobtainable due to mental status Physical Exam Vital signs: Vital Signs 05/13/18 09:00 05/13/18 10:00 05/13/18 11:00 Temperature 100.2 F H 100.8 F H 100.6 F H Pulse Rate 80 82 79 Respiratory Rate 14 14 Blood Pressure 136/83 118/68 135/67 Pulse Oximetry 98 93 L 92 L 05/13/18 11:59 05/13/18 12:00 05/13/18 13:00 Temperature 100.6 F H 100.4 F H Pulse Rate 80 81 Respiratory Rate 21 14 14 Blood Pressure 136/79 145/63 H Pulse Oximetry 94 L 92 L 92 L 05/13/18 14:00 05/13/18 15:00 05/13/18 15:15 Temperature 100.6 F H 100.6 F H Pulse Rate 82 78 77 Respiratory Rate 14 14 Blood Pressure 120/78 108/65 Pulse Oximetry 98 97 98 05/13/18 16:00 05/13/18 17:00 05/13/18 18:00 Temperature 100.2 F H 100.4 F H 100.4 F H Pulse Rate 76 81 77 Respiratory Rate 14 Blood Pressure 116/67 119/62 109/62 Pulse Oximetry 97 99 97 05/13/18 19:00 05/13/18 20:00 05/13/18 20:04 Temperature 100.6 F H 98.6 F Pulse Rate 79 79 78 Respiratory Rate 14 14 16 Blood Pressure 123/67 138/78 Pulse Oximetry 99 96 99 05/13/18 21:00 05/13/18 22:00 05/13/18 23:00 Temperature 100.5 F H 100.5 F H 101.3 F H Pulse Rate 80 83 81 Respiratory Rate 14 14 Blood Pressure 129/72 126/70 140/78 Pulse Oximetry 98 96 98 05/14/18 00:00 05/14/18 00:33 05/14/18 01:00 Temperature 101.7 F H 102.0 F H Pulse Rate 85 86 86 Respiratory Rate 18 16 14 Blood Pressure 132/72 135/75 Pulse Oximetry 97 97 96 05/14/18 02:00 05/14/18 03:00 05/14/18 03:44 Temperature 101.8 F H 101.1 F H Pulse Rate 85 86 81 Respiratory Rate 14 14 16 Blood Pressure 129/70 134/75 Pulse Oximetry 96 97 98 05/14/18 04:00 05/14/18 05:00 05/14/18 06:00 Temperature 100.6 F H 100.6 F H 101.1 F H Pulse Rate 80 83 81 Respiratory Rate Blood Pressure 139/81 149/75 H 135/79 Pulse Oximetry 99 85 L 96 05/14/18 07:00 05/14/18 07:30 05/14/18 07:31 Temperature 100.9 F H Pulse Rate 81 82 Respiratory Rate 19 18 Blood Pressure 144/79 H Pulse Oximetry 97 97 Intake & Output 05/13/18 05/14/18 05/14/18 18:59 06:59 18:59 Intake Total 2531 / 2531 3612 / 3612 Output Total 4000 / 4000 1450 / 1450 Balance -1469 / -1469 2162 / 2162 Intake: IV 1635 / 1635 1052 / 1052 NS Inj 1,000 ML @ 84 mls/hr IV. 1000 / 1000 1000 / 1000 CONT .[id number] J[facility] Rx#:[id number] Cerebyx Inj 100 MGPE In NS Inj 52 / 52 52 / 52 50 ML @ 208 mls/hr IV.SIG Q8HR [facility] Rx#:[id number] Zosyn 4.5 GM Premix 4.5 gm In 200 / 200 100 ml @ 200 mls/hr IV.SIG Q6H [facility] Rx#:[id number] Vancomycin Inj 1,000 MG In NS 15 / 15 Inj 250 ML @ 250 mls/hr IV.SIG Q24H [facility] Rx#:[id number] Vancomycin Inj 1,250 MG In NS 263 / 263 Inj 250 ML @ 250 mls/hr IV.SIG Q12H [facility] Rx#:[id number] Keppra Inj 500 MG In NS Inj 100 105 / 105 ML @ 400 mls/hr IV.SIG Q12H [facility] Rx#:[id number] Tube Feeding 776 / 776 625 / 625 Water Bolus Amount 120 / 120 Other 193 / 193 Output: Urine Amount (Catheter) 4000 / 4000 1450 / 1450 Indwelling Temp Sensing 4000 / 4000 1450 / 1450 Catheter Other: Date of Last Bowel Movement 05/13/18 05/13/18 # Incontinent Bowel Movements 1 Narrative: GENERAL: in NAD, SKIN: Warm and dry. HEAD: Atraumatic. Normocephalic. ENT: Intubated RESPIRATORY: Intubated GASTROINTESTINAL: Abdomen soft, non-tender, nondistended. MUSCULOSKELETAL: Extremities without clubbing, cyanosis, or edema. No obvious deformities. NEUROLOGICAL: Intubated. arousable, not following, ou approx 3-2, face sym, grimaces, appears to localize with all 4, flexion ue, withdraws le PSYCHIATRIC: Intubated - Constitutional no acute distress - Routine HEENT Exam Head: Present: normocephalic - Urinary Catheter Management Indwelling Temp Sensing Catheter Cath placed during this visit: yes Reason for continuing: Terminally ill/Comfort care Insertion date: 05/08/18 Insertion time: 22:40 Objective Laboratory Results - last 24 hr 05/13/18 05/13/18 05/13/18 09:20 09:20 11:51 WBC RBC Hgb Hct MCV MCH MCHC RDW Plt Count MPV Neut % (Auto) Lymph % (Auto) Morris % (Auto) Eos % (Auto) Baso % (Auto) Neut # (Auto) Lymph # (Auto) Morris # (Auto) Eos # (Auto) Baso # (Auto) WBC Differential Differential Comment APTT Sodium Potassium Chloride Carbon Dioxide Anion Gap BUN Creatinine Estimated GFR POC Glucose 304 H Random Glucose Calcium Phosphorus Magnesium Ammonia 11 Troponin I Cortisol 23.8 Phenytoin Phenobarbital 05/13/18 05/13/18 05/13/18 16:11 19:58 23:57 WBC RBC Hgb Hct MCV MCH MCHC RDW Plt Count MPV Neut % (Auto) Lymph % (Auto) Morris % (Auto) Eos % (Auto) Baso % (Auto) Neut # (Auto) Lymph # (Auto) Morris # (Auto) Eos # (Auto) Baso # (Auto) WBC Differential Differential Comment APTT Sodium Potassium Chloride Carbon Dioxide Anion Gap BUN Creatinine Estimated GFR POC Glucose 179 H 201 H 173 H Random Glucose Calcium Phosphorus Magnesium Ammonia Troponin I Cortisol Phenytoin Phenobarbital 05/14/18 05/14/18 05/14/18 04:05 04:05 04:05 WBC 11.6 H RBC 4.26 L Hgb 12.2 L Hct 36.3 L MCV 85.1 MCH 28.5 MCHC 33.6 RDW 15.1 Plt Count 200 MPV 8.9 Neut % (Auto) 81.1 H Lymph % (Auto) 7.6 L Morris % (Auto) 7.3 Eos % (Auto) 3.6 Baso % (Auto) 0.4 Neut # (Auto) 9.4 H Lymph # (Auto) 0.9 L Morris # (Auto) 0.8 Eos # (Auto) 0.4 Baso # (Auto) 0.0 WBC Differential . Differential Comment Auto diff final APTT 42.0 H Sodium 143 Potassium 3.7 Chloride 110 H Carbon Dioxide 27.0 Anion Gap 6 BUN 16 Creatinine 0.65 Estimated GFR Greater than 89 POC Glucose Random Glucose 234 H Calcium 8.1 L Phosphorus 2.2 L Magnesium 2.0 Ammonia Troponin I 12.50 H* Cortisol Phenytoin 12.4 Phenobarbital 7.8 L 05/14/18 05/14/18 05/14/18 04:23 05:33 08:28 WBC RBC Hgb Hct MCV MCH MCHC RDW Plt Count MPV Neut % (Auto) Lymph % (Auto) Morris % (Auto) Eos % (Auto) Baso % (Auto) Neut # (Auto) Lymph # (Auto) Morris # (Auto) Eos # (Auto) Baso # (Auto) WBC Differential Differential Comment APTT Sodium Potassium Chloride Carbon Dioxide Anion Gap BUN Creatinine Estimated GFR POC Glucose 209 H 245 H 219 H Random Glucose Calcium Phosphorus Magnesium Ammonia Troponin I Cortisol Phenytoin Phenobarbital Microbiology 05/13/18 11:50 Gram Stain - Final Sputum - Endotracheal 05/09/18 16:00 Aerobic Blood Culture - Preliminary Blood - Line No growth in 4 days Anaerobic Blood Culture - Preliminary No growth in 4 days 05/08/18 21:38 Aerobic Blood Culture - Final Blood - Peripheral No growth in 5 days Anaerobic Blood Culture - Final No growth in 5 days 05/08/18 21:33 Aerobic Blood Culture - Final Blood - Peripheral No growth in 5 days Anaerobic Blood Culture - Final No growth in 5 days Review/Management - Diagnosis (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 fib arrest underlying code cool post-anoxic seizure on eeg MRI brain reviewed. No pontine hemorrhage. No diffusion restriction noted on DWI images. On heparin drip on dilantin/phb, keppra dil 12.4, phb 7.8 Recommendation repeat eeg reviewed. not impressive for any active sz's. rare sharps ok to d/c sedative gtt's more alert, improved neuro this am continue sz meds at current doses; will follow follow sz med levels peripherally follow exam Dr. Shaikh covering over weekend as needed
[2018-05-14] MEDS: Sod Chloride 0.9% Inj 1,000 ML IV.CONT SCH ×2 (09:00→20:32)
[2018-05-14] MEDS: Insulin Detemir Inj 1,000 UNIT/10 ML Vial SQ SCH ×2 (09:00→20:30)
[2018-05-14] MEDS: Amiodarone 200 MG Tablet PO SCH (09:00)
[2018-05-14] MEDS: Polyethylene Glycol 3350 17 GM Packet PO SCH ×2 (11:13→20:04)
--- NOTE | 2018-05-14 11:14 | P.PNCC ---
Subjective Subjective Remarks/Hospital Course: 63-year-old male presents to emergency department intubated after VF/VT arrest. He had to be defibrillated twice in the field, afterwards clear STEMI criteria was called by [facility]. Apparently heard a collapse in the next room found the patient unresponsive called 9 1. Apparently total downtime was about 10 minutes and had a very quick Rask. Blood pressure was little low and dopamine drip was started in the field. Patient also had amiodarone started in the field. Initially the STEMI alert was called brain demonstrated punctate hyperdensity characteristic of hemorrhage in the right mid araseli in the STEMI alert was canceled. The patient has been admitted to ICU for hypothermia protocol treatment post cardiac arrest. 05/09: Discussed with at bedside. Currently on target temperature monitoring. EEG performed. Replacing potassium and phosphorus this a.m. 05/10: Currently temperature is a 97. Has been rewarmed from target temperature monitoring. EEG revealed no epileptic activity. Replace potassium currently. MRI brain revealed no signs of hemorrhage. Will start on heparin drip [place] protocol 900 units an hour and provide aspirin. Carvedilol started by cardiology during the a.m. 05/11: Phosphorus being replaced. Weaning off sedation currently. Rewarmed to 37 C. No problem. Tolerating tube feeds currently at 30 cc now. Subjective: 05/12: Currently resting in bed. New central has been placed and targeted temperature monitoring Quatro catheter has been removed. Seizures overnight. Currently on fosphenytoin and levetiracetam. Remains on midazolam drip. Updated at bedside. 05/13: Low-grade temperature during the night continues greater than 99.0., Noted blood cultures negative growth to date. Remains encephalopathic .EEG revealed continued epileptiform activity. Patient noted phenobarbital level this a.m. subtherapeutic at 3.1. Noted persistent leukocytosis, bilateral pulmonary opacities, sputum culture pending. Palliative care has been consulted. 05/14: Sedative discontinued early this a.m.. Noted spontaneous eye opening with neurologist Dr. Connor at the bedside, not following any commands. EEG revealed a few spikes, patient continues on anticonvulsant regimen and seizure precautions. Noted hypertension systolic blood pressure greater than 170 Vasotec reinitiated. discussed findings with Dr. Connor at bedside we will continue to monitor discontinue all sedatives and continually evaluate neurological status. Plan this afternoon to meet with patient's Mrs. Siddiqui and palliative care. Objective Vital Signs / I&O: Vital Signs 05/13/18 11:59 05/13/18 12:00 05/13/18 13:00 Temperature 100.6 F H 100.4 F H Pulse Rate 80 81 Respiratory Rate 21 14 14 Blood Pressure 136/79 145/63 H Pulse Oximetry 94 L 92 L 92 L 05/13/18 14:00 05/13/18 15:00 05/13/18 15:15 Temperature 100.6 F H 100.6 F H Pulse Rate 82 78 77 Respiratory Rate 14 14 Blood Pressure 120/78 108/65 Pulse Oximetry 98 97 98 05/13/18 16:00 05/13/18 17:00 05/13/18 18:00 Temperature 100.2 F H 100.4 F H 100.4 F H Pulse Rate 76 81 77 Respiratory Rate 14 Blood Pressure 116/67 119/62 109/62 Pulse Oximetry 97 99 97 05/13/18 19:00 05/13/18 20:00 05/13/18 20:04 Temperature 100.6 F H 98.6 F Pulse Rate 79 79 78 Respiratory Rate 14 14 16 Blood Pressure 123/67 138/78 Pulse Oximetry 99 96 99 05/13/18 21:00 05/13/18 22:00 05/13/18 23:00 Temperature 100.5 F H 100.5 F H 101.3 F H Pulse Rate 80 83 81 Respiratory Rate 14 14 Blood Pressure 129/72 126/70 140/78 Pulse Oximetry 98 96 98 05/14/18 00:00 05/14/18 00:33 05/14/18 01:00 Temperature 101.7 F H 102.0 F H Pulse Rate 85 86 86 Respiratory Rate 18 16 14 Blood Pressure 132/72 135/75 Pulse Oximetry 97 97 96 05/14/18 02:00 05/14/18 03:00 05/14/18 03:44 Temperature 101.8 F H 101.1 F H Pulse Rate 85 86 81 Respiratory Rate 14 14 16 Blood Pressure 129/70 134/75 Pulse Oximetry 96 97 98 05/14/18 04:00 05/14/18 05:00 05/14/18 06:00 Temperature 100.6 F H 100.6 F H 101.1 F H Pulse Rate 80 83 81 Respiratory Rate Blood Pressure 139/81 149/75 H 135/79 Pulse Oximetry 99 85 L 96 05/14/18 07:00 05/14/18 07:30 05/14/18 07:31 Temperature 100.9 F H Pulse Rate 81 82 Respiratory Rate 19 18 Blood Pressure 144/79 H Pulse Oximetry 97 97 05/14/18 08:00 05/14/18 09:00 05/14/18 10:00 Temperature 100.9 F H 100.8 F H 101.5 F H Pulse Rate 83 84 87 Respiratory Rate Blood Pressure 150/82 H 152/79 H Pulse Oximetry 97 98 96 Intake & Output 05/13/18 05/14/18 05/14/18 18:59 06:59 18:59 Intake Total 2531 / 2531 3712 / 3712 1000 / 1000 Output Total 4000 / 4000 1450 / 1450 Balance -1469 / -1469 2262 / 2262 1000 / 1000 Intake: IV 1635 / 1635 1152 / 1152 1000 / 1000 NS Inj 1,000 ML @ 84 mls/hr IV. 1000 / 1000 1000 / 1000 1000 / 1000 CONT .[id number] JIM Rx#:[id number] Cerebyx Inj 100 MGPE In NS Inj 52 / 52 52 / 52 50 ML @ 208 mls/hr IV.SIG Q8HR JIM Rx#:[id number] Zosyn 4.5 GM Premix 4.5 gm In 200 / 200 100 / 100 100 ml @ 200 mls/hr IV.SIG Q6H JIM Rx#:[id number] Vancomycin Inj 1,000 MG In NS 15 / 15 Inj 250 ML @ 250 mls/hr IV.SIG Q24H JIM Rx#:[id number] Vancomycin Inj 1,250 MG In NS 263 / 263 Inj 250 ML @ 250 mls/hr IV.SIG Q12H JIM Rx#:[id number] Keppra Inj 500 MG In NS Inj 100 105 / 105 ML @ 400 mls/hr IV.SIG Q12H JIM Rx#:[id number] Tube Feeding 776 / 776 625 / 625 Water Bolus Amount 120 / 120 Other 1934 Output: Urine Amount (Catheter) 4000 / 4000 1450 / 1450 Indwelling Temp Sensing 4000 / 4000 1450 / 1450 Catheter Other: Date of Last Bowel Movement 05/13/18 05/13/18 # Incontinent Bowel Movements 1 Result Diagrams: 05/14/18 04:05 05/14/18 04:05 Other Results: Laboratory Results WBC 11.6 th/mm3 (4.0-11.0) H 05/14/18 04:05 RBC 4.26 mil/mm3 (4.50-5.90) L 05/14/18 04:05 Hgb 12.2 gm/dL (13.0-17.0) L 05/14/18 04:05 POC Hgb (Calc) 15.6 g/dL (13.0-17.0) 05/08/18 20:45 Hct 36.3 % (39.0-51.0) L 05/14/18 04:05 POC Hct 46.0 % (39-51.0) 05/08/18 20:45 MCV 85.1 fL (80.0-100.0) 05/14/18 04:05 MCH 28.5 pg (27.0-34.0) 05/14/18 04:05 MCHC 33.6 % (32.0-36.0) 05/14/18 04:05 RDW 15.1 % (11.6-17.2) 05/14/18 04:05 Plt Count 200 th/mm3 (150-450) 05/14/18 04:05 MPV 8.9 fL (7.0-11.0) 05/14/18 04:05 Prelim Diff (Auto) Slide review pending 05/08/18 20:45 Neut % (Auto) 81.1 % (16.0-70.0) H 05/14/18 04:05 Lymph % (Auto) 7.6 % (9.0-44.0) L 05/14/18 04:05 [place] % (Auto) 7.3 % (0.0-8.0) 05/14/18 04:05 Eos % (Auto) 3.6 % (0.0-4.0) 05/14/18 04:05 Baso % (Auto) 0.4 % (0.0-2.0) 05/14/18 04:05 Neut # (Auto) 9.4 th/mm3 (1.8-7.7) H 05/14/18 04:05 Lymph # (Auto) 0.9 th/mm3 (1.0-4.8) L 05/14/18 04:05 [place] # (Auto) 0.8 th/mm3 (0.0-0.9) 05/14/18 04:05 Eos # (Auto) 0.4 th/mm3 (0.0-0.4) 05/14/18 04:05 Baso # (Auto) 0.0 th/mm3 (0.0-0.2) 05/14/18 04:05 WBC Differential . 05/14/18 04:05 Seg Neuts % (Manual) 63 % (16-70) 05/08/18 20:45 Lymphocytes % (Manual) 21 % (9-44) 05/08/18 20:45 Monocytes % (Manual) 7 % (0-8) 05/08/18 20:45 Eosinophils % (Manual) 9 % (0-4) H 05/08/18 20:45 Abs Neuts (Manual) 8.6 th/mm3 (1.8-7.7) H 05/08/18 20:45 Differential Comment Auto diff final 05/14/18 04:05 Platelet Estimate Normal (Normal) 05/08/18 20:45 Platelet Morphology Normal (Normal) 05/08/18 20:45 RBC Morphology Normal (Normal) 05/08/18 20:45 PT 11.6 sec (9.8-11.6) 05/10/18 16:10 INR 1.1 Ratio 05/10/18 16:10 APTT 42.0 sec (23.4-31.7) H 05/14/18 04:05 Puncture Site [place] 05/13/18 07:09 Patient Temperature 98.6 05/13/18 07:09 O2 Saturation 97 % (90-100) 05/13/18 07:09 ABG pH 7.46 (7.380-7.420) H 05/13/18 07:09 ABG pCO2 35 mmHg (38-42) L 05/13/18 07:09 ABG pO2 123 mmHG (61-120) H 05/13/18 07:09 ABG HCO3 25 mmol/L (22-26) 05/13/18 07:09 ABG O2 Content 17.6 Vol % (12.0-20.0) 05/13/18 07:09 ABG Base Excess 1.2 mmol/L (-2-2) 05/13/18 07:09 ABG Methemoglobin 1.4 % (0-2) 05/13/18 07:09 David Test Present 05/13/18 07:09 Hemoglobin 12.9 G/DL (12.0-16.0) 05/13/18 07:09 Carboxyhemoglobin 0.7 % (0-4) 05/13/18 07:09 O2 Delivery Device Ventilator 05/13/18 07:09 Vent Setting See comments 05/13/18 07:09 Inspired O2 40 % 05/13/18 07:09 Critical Value No 05/13/18 07:09 POC Sodium 137 mmol/L (137-144) 05/08/18 20:45 Sodium 143 meq/L (136-145) 05/14/18 04:05 POC Potassium 3.2 mmol/L (3.6-5.0) L 05/08/18 20:45 Potassium 3.7 meq/L (3.5-5.1) 05/14/18 04:05 POC Chloride 96 mmol/L (102-111) L 05/08/18 20:45 Chloride 110 meq/L (98-107) H 05/14/18 04:05 Carbon Dioxide 27.0 meq/L (21.0-32.0) 05/14/18 04:05 Anion Gap 6 meq/L (5-15) 05/14/18 04:05 POC BUN 6 mg/dL (5-21) 05/08/18 20:45 BUN 16 mg/dL (7-18) 05/14/18 04:05 Creatinine 0.65 mg/dL (0.60-1.30) 05/14/18 04:05 POC Creatinine 1.0 mg/dL (0.6-1.3) 05/08/18 20:45 Estimated GFR Greater than 89 mL/min (>89) 05/14/18 04:05 POC Glucose 219 mg/dl (68-110) H 05/14/18 08:28 Random Glucose 234 mg/dL (74-106) H 05/14/18 04:05 Hemoglobin A1c 6.5 % (4.3-6.0) H 05/09/18 14:58 Lactic Acid 2.4 mmol/L (0.4-2.0) H 05/09/18 17:45 Calcium 8.1 mg/dL (8.5-10.1) L 05/14/18 04:05 Phosphorus 2.2 mg/dL (2.5-4.9) L 05/14/18 04:05 Magnesium 2.0 mg/dL (1.5-2.5) 05/14/18 04:05 Total Bilirubin 0.4 mg/dL (0.2-1.0) 05/13/18 04:25 Direct Bilirubin 0.3 mg/dL (0.0-0.2) H 05/09/18 01:10 Indirect Bilirubin 0.8 mg/dL (0.0-0.8) 05/09/18 01:10 AST 67 U/L (15-37) H 05/13/18 04:25 ALT 51 U/L (12-78) 05/13/18 04:25 Alkaline Phosphatase 85 U/L (45-117) 05/13/18 04:25 Ammonia 11 mcmol/L (11-32) 05/13/18 09:20 Total Creatine Kinase 721 U/L (39-308) H 05/12/18 04:45 CK-MB (CK-2) 27.5 ng/mL (0.5-3.6) H 05/12/18 04:45 CK-MB (CK-2) % 3.8 % (0.0-4.0) 05/12/18 04:45 Troponin I 12.50 ng/mL (0.02-0.05) H* 05/14/18 04:05 Total Protein 5.5 g/dL (6.4-8.2) L 05/13/18 04:25 Albumin 2.0 g/dL (3.4-5.0) L 05/13/18 04:25 Triglycerides 89 mg/dL (42-150) 05/09/18 14:58 Cholesterol 129 mg/dL (120-200) 05/09/18 14:58 LDL Cholesterol, Calc 61 mg/dL (0-99) 05/09/18 14:58 HDL Cholesterol 50.7 mg/dL (40.0-60.0) 05/09/18 14:58 Cholesterol/HDL Ratio 2.54 Ratio 05/09/18 14:58 TSH 0.285 uIU/mL (0.358-3.740) L 05/10/18 00:30 Free T4 1.08 ng/dL (0.76-1.46) 05/10/18 15:55 Total T3 70 ng/dL (60-181) 05/10/18 22:15 Cortisol 23.8 mcg/dL 05/13/18 09:20 Urine Color Straw (Yellw/Straw) 05/08/18 22:30 Urine Clarity Clear (Clear) 05/08/18 22:30 Urine pH 6.0 (5.0-8.5) 05/08/18 22:30 Ur Specific [place] 1.005 (1.002-1.035) 05/08/18 22:30 Urine Protein 30 mg/dL (Neg-Trace) H 05/08/18 22:30 Urine Glucose (UA) 500 or greater mg/dL (Negative) 05/08/18 22:30 Urine Ketones Trace mg/dL (Negative) H 05/08/18 22:30 Urine Occult Blood Moderate (Negative) H 05/08/18 22:30 Urine Nitrate Negative (Negative) 05/08/18 22:30 Urine Bilirubin Negative (Negative) 05/08/18 22:30 Urine Urobilinogen Less than 2 mg/dL (Less than 2) 05/08/18 22:30 Ur Leukocyte Esterase Negative (Negative) 05/08/18 22:30 Urine RBC 5 /hpf (0-3) H 05/08/18 22:30 Urine WBC 6 /hpf (0-5) H 05/08/18 22:30 Ur Squamous Epith Cells <1 /hpf (0-5) 05/08/18 22:30 Urine Bacteria Occasional /hpf (None) H 05/08/18 22:30 Micro UA Comment Cath-culture ind 05/08/18 22:30 Ur Microscopic Review Not Reportable 05/08/18 22:30 Urine Culture Comments Cath-cult indicated 05/08/18 22:30 Nasal Screen MRSA (PCR) Mr[place] detected (Negative) 05/08/18 22:30 Urine Opiates Screen Pos (Neg) H 05/09/18 10:55 Ur Barbiturates Screen Neg (Neg) 05/09/18 10:55 Phenytoin 12.4 mcg/mL (10.0-20.0) 05/14/18 04:05 Ur Amphetamines Screen Neg (Neg) 05/09/18 10:55 Phenobarbital 7.8 mcg/mL (15.0-40.0) L 05/14/18 04:05 U Benzodiazepines Scrn Pos (Neg) H 05/09/18 10:55 Urine Cocaine Screen Neg (Neg) 05/09/18 10:55 U Cannabinoids Screen Neg (Neg) 05/09/18 10:55 Hepatitis A IgM Ab Nonreactive (Nonreactive) 05/09/18 14:58 Hep Bs Antigen Nonreactive (Nonreactive) 05/09/18 14:58 Hep B Core IgM Ab Nonreactive (Nonreactive) 05/09/18 14:58 Hep C IgG Ab Nonreactive (Nonreactive) 05/09/18 14:58 Blood Type O Positive 05/09/18 01:10 Blood Type Recheck Required 05/09/18 01:10 Antibody Screen Negative 05/09/18 01:[address] 05/08/18 20:43 CONCLUSION: 1. Punctate hyperdensity characteristic of hemorrhage in the right mid araseli. 2. No acute findings in the supratentorial brain. . Cervical Spine CT 05/08/18 20:44 CONCLUSION: 1. Moderate degenerative changes at C6-7. 2. Otherwise negative exam. Head MRI 05/10/18 00:00 CONCLUSION: 1. No evidence of acute hemorrhage within the right araseli. 2. No acute infarct, acute hemorrhage, midline shift or extra-axial fluid collection. 3. Mucosal thickening involving the left maxillary sinus, bilateral anterior ethmoid air cells and bilateral sphenoid sinuses. 4. Some fluid within the mastoid air cells bilaterally. Head MRA 05/10/18 06:52 CONCLUSION: 1. Negative MRA Cow ([place]) non contrast. Chest X-Ray 05/13/18 06:00 CONCLUSION: No significant interval change with persistent bilateral pulmonary parenchymal opacity and small bilateral pleural effusions. Objective Remarks: GENERAL: 63-year-old male currently orotracheally intubated, SKIN: cool and dry. HEAD: Atraumatic. Normocephalic. EYES: Pupils equal and round and minimally reactive bilaterally. No scleral icterus. No injection or drainage. ENT: No nasal bleeding or discharge. Mucous membranes pink and moist. NECK: Trachea midline. No JVD. Left IJ is clean dry and intact. day 3 CARDIOVASCULAR: RRR S1, S2. No S4. RESPIRATORY: No accessory muscle use. Clear to auscultation. Breath sounds equal bilaterally. GASTROINTESTINAL: Abdomen soft, non-tender, nondistended. Hepatic and splenic margins not palpable. Normal active bowel sounds MUSCULOSKELETAL: Extremities without clubbing, cyanosis, or edema. No obvious deformities. NEUROLOGICAL: Sedation discontinued 05/14. Spontaneously moving extremities x4 not following commands intermittently spontaneous eye opening, positive gag and cough and minimal corneal reflex. Does not withdraw to pain. Assessment and Plan - Assessment and Plan Plan: Neuro/Psych: Rule out anoxic encephalopathy Original CT brain on admission revealed possible 3 mm mid right araseli hemorrhage. Currently midazolam at 4 mg an hour, fentanyl drip at 250 mcg an hour , propofol drips 10 mcgs for sedation/analgesia while intubated. Daily sedation vacation Goal of RASS -2 Cold cool Catheter removed 05/12. Neurology/Dr. Connor following, discussed plan for continued evaluation with discontinuation of all sedation EEG completed 05/09 with no epileptic activity. Repeat 05/12 with sharp activity. Will repeat 05/13. Currently on fosphenytoin IV 3 times daily and levetiracetam 500 mg IV twice daily and phenobarbital 60 mg 3 times daily. Check fosphenytoin and phenobarbital level in a.m. 05/13 MRI brain revealed left maxillary, bilateral ethmoid and sphenoid sinusitis. MRA brain revealed normal examination. CV Out of hospital cardiac arrest/V. 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 Rayos. Melendez for carvedilol 3.125 mg twice daily, start aspirin 81 mg daily and heparin drip that he rates an hour. 05/12 Added enalapril 20 mg daily and atorvastatin 10 mg at night since MRI brain revealed no hemorrhage Originally not candidate for cardiac catheterization due to pontine hemorrhage right mid araseli. This is been changed with MRI/A Troponin elevated 2.86 this a.m. currently elevated at 3.2. Follow until downward trend 2D echocardiogram revealed EF 30-35%. Ruptured chordae tendon possible involving mitral valve. Resp: Acute respiratory failurelikely aspiration with right lower lobe infiltrate and altered mental status PRVC ventilation Ventilator bundle Head of bed at 30 degrees Albuterol/ipratropium aerosols every 4 hours with albuterol aerosols every 2 hours as needed dyspnea Chest x-ray revealed bilateral pulmonary opacities and small bilateral pleural effusions. GI: Vital 1.5 goal 60 cc output currently 60 cc an hour Pantoprazole for GI prophylaxis Docusate serum/senna 1 tablet twice daily for bowel regimen : [place] catheter placed for accurate I's and O's in a critical patient currentl Endo: Acute hyperglycemia Low TSH Sliding scale insulin with Accu-Cheks to maintain euglycemia. On insulin detemir 4 units twice daily TSH was 0.285. Normal free T4/total T3. Recheck 4-6-week HEME: Leukocytosis Monitor CBC daily. Follow trends. Leukocytosis downtrending continue to follow CBC de-escalation of antibiotics upon speciation of culture results Renal Creatinine currently within normal limits Acute I's and O's Heme monitor urine output: ID: Monitor for signs and symptomatology infection Patient with aspiration. Obtain sputum culture-Vanc and Zosyn (day 2) FEN: Replace electrolytes as clinically indicated MSK: PT evaluate and treat Access -Left CVL day 1 Prophylaxis - -GI pantoprazole - -DVT -SCD/heparin drip 31 minutes critical care time. Palliative care has been consult at request of patient's Mrs. Siddiqui planned meeting 1430 this afternoon to define goals of care. Discussed Condition With: Dr. Connor and [employer] ARCHITECT at bedside
[2018-05-14] MEDS: Acetaminophen 325 MG Tablet PO PRN (12:08)
[2018-05-14] MEDS: Heparin Drip 25,000 UNIT/250 ML BAG IV.CONT PRN (12:08)
--- NOTE | 2018-05-14 15:44 | P.PNPAL ---
Reason for Visit Reason for visit: a. To assist with evaluation and management of symptoms including: Pain. b. To assist medical decision maker(s) with: better understanding of current medical conditions; weighing benefits/burdens of medical treatment options; making medical treatment decisions. Subjective Subjective/Interval History: Palliative care follow-up for further clarifications of goals of care, family support. Patient seen in ICU, remains endotracheally intubated on mechanical ventilation. Off sedation at the time of my visit. Not opening eyes were following any commands. Spontaneous movement of bilateral lower extremities noted but not to command. Persistent yawning and biting the ET tube noted. Intermittently restless. Follow-up EEG on 05/13 showing fever spikes, remains on antiseizure medication. Neurology Dr. Connor following. Sputum culture positive for MRSA. Has continuous spiking fevers, max temp today 102. WBC trending down, 11.6 today. Case discussed with Dr. Roblero and bedside RN Cole. Family/Friend Interactions: Met with patient's at bedside. Medical update provided. Reviewed patient' s past medical history, events leading to this hospitalization, clinical course and current medical management. Patient's reports that patient has always been a very independent man who "would not be happy"with his clinical condition and current management. has elected to continue current management short of NO cardiac code, allow a few more days to reevaluate patient's clinical condition and overall prognosis for a meaningful neurological recovery. reports that patient has verbalized in many occasions that "if he was unable to return to his independent self (talking, walking, independent with ADL's, riding his motorcycle), any other alternative would NOT be an acceptable quality of life". will NOT proceed with trach/peg if patient is unable to med extubate. Risks, benefits and limitations of cardiac code reviewed at length with patient's , she has elected no cardiac code. All questions where answered in great detail. Patient's family likely to come from [place] over the weekend to visit. Patient has a 42-year-old son who is currently in [place]. Advance Directives Living Will: Never completed Health Care Surrogate: Never completed Durable Power of Pharmacy Grad Intern: Never completed Objective Vital Signs: Vital Signs 05/13/18 16:00 05/13/18 17:00 05/13/18 18:00 Temperature 100.2 F H 100.4 F H 100.4 F H Pulse Rate 76 81 77 Respiratory Rate 14 Blood Pressure 116/67 119/62 109/62 Pulse Oximetry 97 99 97 05/13/18 19:00 05/13/18 20:00 05/13/18 20:04 Temperature 100.6 F H 98.6 F Pulse Rate 79 79 78 Respiratory Rate 14 14 16 Blood Pressure 123/67 138/78 Pulse Oximetry 99 96 99 05/13/18 21:00 05/13/18 22:00 05/13/18 23:00 Temperature 100.5 F H 100.5 F H 101.3 F H Pulse Rate 80 83 81 Respiratory Rate 14 14 Blood Pressure 129/72 126/70 140/78 Pulse Oximetry 98 96 98 05/14/18 00:00 05/14/18 00:33 05/14/18 01:00 Temperature 101.7 F H 102.0 F H Pulse Rate 85 86 86 Respiratory Rate 18 16 14 Blood Pressure 132/72 135/75 Pulse Oximetry 97 97 96 05/14/18 02:00 05/14/18 03:00 05/14/18 03:44 Temperature 101.8 F H 101.1 F H Pulse Rate 85 86 81 Respiratory Rate 14 14 16 Blood Pressure 129/70 134/75 Pulse Oximetry 96 97 98 05/14/18 04:00 05/14/18 05:00 05/14/18 06:00 Temperature 100.6 F H 100.6 F H 101.1 F H Pulse Rate 80 83 81 Respiratory Rate Blood Pressure 139/81 149/75 H 135/79 Pulse Oximetry 99 85 L 96 05/14/18 07:00 05/14/18 07:30 05/14/18 07:31 Temperature 100.9 F H Pulse Rate 81 82 Respiratory Rate 19 18 Blood Pressure 144/79 H Pulse Oximetry 97 97 05/14/18 08:00 05/14/18 09:00 05/14/18 10:00 Temperature 100.9 F H 100.8 F H 101.5 F H Pulse Rate 83 84 85 Respiratory Rate Blood Pressure 150/82 H 152/79 H Pulse Oximetry 97 98 96 05/14/18 11:00 05/14/18 12:00 05/14/18 12:23 Temperature 101.1 F H 100.6 F H Pulse Rate 84 84 85 Respiratory Rate 14 23 Blood Pressure 132/70 Pulse Oximetry 96 97 Intake & Output 05/13/18 05/14/18 05/14/18 18:59 06:59 18:59 Intake Total 2531 / 2531 3712 / 3712 1769.5 / 1769.5 Output Total 4000 / 4000 1450 / 1450 Balance -1469 / -1469 2262 / 2262 1769.5 / 1769.5 Intake: IV 1635 / 1635 1152 / 1152 1769.5 / 1769.5 Heparin/D5W 25,000 U/250 mL 25, 250 / 250 000 unit In 250 ml @ Per Protocol IV.CONT TITRATE PRN Rx #:[id number] NS Inj 1,000 ML @ 84 mls/hr IV. 1000 / 1000 1000 / 1000 1000 / 1000 CONT .[id number] JIM Rx#:[id number] Cerebyx Inj 100 MGPE In NS Inj 52 / 52 52 / 52 52 / 52 50 ML @ 208 mls/hr IV.SIG Q8HR JIM Rx#:[id number] Zosyn 4.5 GM Premix 4.5 gm In 200 / 200 100 / 100 100 / 100 100 ml @ 200 mls/hr IV.SIG Q6H JIM Rx#:[id number] Vancomycin Inj 1,000 MG In NS 15 / 15 Inj 250 ML @ 250 mls/hr IV.SIG Q24H JIM Rx#:[id number] Vancomycin Inj 1,250 MG In NS 263 / 263 262.5 / 262.5 Inj 250 ML @ 250 mls/hr IV.SIG Q12H JIM Rx#:[id number] Keppra Inj 500 MG In NS Inj 100 105 / 105 105 / 105 ML @ 400 mls/hr IV.SIG Q12H JIM Rx#:[id number] Tube Feeding 776 / 776 625 / 625 Water Bolus Amount 120 / 120 Other 193 / 193 Output: Urine Amount (Catheter) 4000 / 4000 1450 / 1450 Indwelling Temp Sensing 4000 / 4000 1450 / 1450 Catheter Other: Date of Last Bowel Movement 05/13/18 05/13/18 05/13/18 # Incontinent Bowel Movements 1 Physical Exam: CONSTITUTIONAL/GENERAL: This is an adequately nourished patient endotracheally intubated on mechanical ventilation. No acute distress. TUBES/LINES/DRAINS: ETT, OG, left IJ central line, Orellana catheter, bilateral SCDs, bilateral soft wrist restraints. SKIN: No jaundice, rashes, or lesions. Ecchymoses on upper extremities. No wounds seen anteriorly. Skin temperature appropriate. Not diaphoretic. HEAD: Atraumatic. Normocephalic. EYES: Pupils equal and round and reactive. Extraocular motions intact. No scleral icterus. No injection or drainage. ENT: Hearing grossly normal. Nose without bleeding or purulent drainage. Moist oral mucosa. ETT, OG in place. NECK: Trachea midline. Supple, nontender. CARDIOVASCULAR: Regular rate and rhythm. Peripheral pulses symmetric. RESPIRATORY/CHEST: Symmetric, unlabored respirations. Clear to auscultation. Breath sounds equal bilaterally. Endotracheally intubated on mechanical ventilation. GASTROINTESTINAL: Abdomen soft, non-tender, nondistended. Bowel sounds present. GENITOURINARY: Without palpable bladder distension. Orellana catheter in place. MUSCULOSKELETAL: Extremities without clubbing, cyanosis, or edema. No mottling or clubbing. NEUROLOGICAL: Unresponsive to verbal or tactile stimuli. Not following any commands. PSYCHIATRIC: Restless. Diagnostic Tests Laboratory: Laboratory Results - last 72 hr 05/11/18 05/11/18 05/11/18 16:01 18:24 20:44 WBC RBC Hgb Hct MCV MCH MCHC RDW Plt Count MPV Neut % (Auto) Lymph % (Auto) Hardin % (Auto) Eos % (Auto) Baso % (Auto) Neut # (Auto) Lymph # (Auto) Hardin # (Auto) Eos # (Auto) Baso # (Auto) WBC Differential Differential Comment APTT Puncture Site Patient Temperature O2 Saturation ABG pH ABG pCO2 ABG pO2 ABG HCO3 ABG O2 Content ABG Base Excess ABG Methemoglobin David Test Hemoglobin Carboxyhemoglobin O2 Delivery Device Vent Setting Inspired O2 Critical Value Sodium 142 Potassium 3.6 Chloride 108 H Carbon Dioxide 27.5 Anion Gap 7 BUN 10 Creatinine 0.67 Estimated GFR Greater than 89 POC Glucose 169 H 188 H Random Glucose 175 H Calcium 7.9 L Phosphorus 2.6 Magnesium 1.9 Total Bilirubin AST ALT Alkaline Phosphatase Ammonia Total Creatine Kinase CK-MB (CK-2) CK-MB (CK-2) % Troponin I Total Protein Albumin Cortisol Phenytoin Phenobarbital 05/12/18 05/12/18 05/12/18 00:42 04:18 04:45 WBC 13.9 H RBC 4.52 Hgb 12.7 L Hct 38.6 L MCV 85.4 MCH 28.0 MCHC 32.8 RDW 14.9 Plt Count 187 MPV 8.0 Neut % (Auto) 89.8 H Lymph % (Auto) 4.9 L Hardin % (Auto) 3.4 Eos % (Auto) 1.5 Baso % (Auto) 0.4 Neut # (Auto) 12.5 H Lymph # (Auto) 0.7 L Hardin # (Auto) 0.5 Eos # (Auto) 0.2 Baso # (Auto) 0.1 WBC Differential . Differential Comment Auto diff final APTT Puncture Site Patient Temperature O2 Saturation ABG pH ABG pCO2 ABG pO2 ABG HCO3 ABG O2 Content ABG Base Excess ABG Methemoglobin David Test Hemoglobin Carboxyhemoglobin O2 Delivery Device Vent Setting Inspired O2 Critical Value Sodium Potassium Chloride Carbon Dioxide Anion Gap BUN Creatinine Estimated GFR POC Glucose 131 H 163 H Random Glucose Calcium Phosphorus Magnesium Total Bilirubin AST ALT Alkaline Phosphatase Ammonia Total Creatine Kinase CK-MB (CK-2) CK-MB (CK-2) % Troponin I Total Protein Albumin Cortisol Phenytoin Phenobarbital 05/12/18 05/12/18 05/12/18 04:45 04:45 07:00 WBC RBC Hgb Hct MCV MCH MCHC RDW Plt Count MPV Neut % (Auto) Lymph % (Auto) Hardin % (Auto) Eos % (Auto) Baso % (Auto) Neut # (Auto) Lymph # (Auto) Hardin # (Auto) Eos # (Auto) Baso # (Auto) WBC Differential Differential Comment APTT 62.0 H Puncture Site Patient Temperature O2 Saturation ABG pH ABG pCO2 ABG pO2 ABG HCO3 ABG O2 Content ABG Base Excess ABG Methemoglobin David Test Hemoglobin Carboxyhemoglobin O2 Delivery Device Vent Setting Inspired O2 Critical Value Sodium 144 Potassium 3.2 L Chloride 109 H Carbon Dioxide 27.2 Anion Gap 8 BUN 11 Creatinine 0.69 Estimated GFR Greater than 89 POC Glucose Random Glucose 211 H Calcium 7.9 L Phosphorus 1.7 L Magnesium 1.8 Total Bilirubin 0.5 AST 80 H ALT 52 Alkaline Phosphatase 60 Ammonia 17 Total Creatine Kinase 721 H CK-MB (CK-2) 27.5 H CK-MB (CK-2) % 3.8 Troponin I 16.00 H* Total Protein 5.2 L Albumin 2.1 L Cortisol Phenytoin Phenobarbital 05/12/18 05/12/18 05/12/18 08:12 11:30 11:40 WBC RBC Hgb Hct MCV MCH MCHC RDW Plt Count MPV Neut % (Auto) Lymph % (Auto) Hardin % (Auto) Eos % (Auto) Baso % (Auto) Neut # (Auto) Lymph # (Auto) Hardin # (Auto) Eos # (Auto) Baso # (Auto) WBC Differential Differential Comment APTT Puncture Site Patient Temperature O2 Saturation ABG pH ABG pCO2 ABG pO2 ABG HCO3 ABG O2 Content ABG Base Excess ABG Methemoglobin David Test Hemoglobin Carboxyhemoglobin O2 Delivery Device Vent Setting Inspired O2 Critical Value Sodium Potassium Chloride Carbon Dioxide Anion Gap BUN Creatinine Estimated GFR POC Glucose 184 H 164 H Random Glucose Calcium Phosphorus 1.8 L Magnesium Total Bilirubin AST ALT Alkaline Phosphatase Ammonia Total Creatine Kinase CK-MB (CK-2) CK-MB (CK-2) % Troponin I Total Protein Albumin Cortisol Phenytoin 10.4 Phenobarbital Less than 2.1 L 05/12/18 05/12/18 05/12/18 20:27 22:25 23:55 WBC RBC Hgb Hct MCV MCH MCHC RDW Plt Count MPV Neut % (Auto) Lymph % (Auto) Hardin % (Auto) Eos % (Auto) Baso % (Auto) Neut # (Auto) Lymph # (Auto) Hardin # (Auto) Eos # (Auto) Baso # (Auto) WBC Differential Differential Comment APTT 47.9 H D Puncture Site Patient Temperature O2 Saturation ABG pH ABG pCO2 ABG pO2 ABG HCO3 ABG O2 Content ABG Base Excess ABG Methemoglobin David Test Hemoglobin Carboxyhemoglobin O2 Delivery Device Vent Setting Inspired O2 Critical Value Sodium Potassium 3.7 Chloride Carbon Dioxide Anion Gap BUN Creatinine Estimated GFR POC Glucose 217 H Random Glucose Calcium Phosphorus 2.3 L Magnesium Total Bilirubin AST ALT Alkaline Phosphatase Ammonia Total Creatine Kinase CK-MB (CK-2) CK-MB (CK-2) % Troponin I Total Protein Albumin Cortisol Phenytoin Phenobarbital 05/12/18 05/13/18 05/13/18 23:55 04:25 04:25 WBC 15.6 H RBC 4.44 L Hgb 12.7 L Hct 37.5 L MCV 84.5 MCH 28.5 MCHC 33.8 RDW 15.0 Plt Count 220 MPV 8.7 Neut % (Auto) 89.3 H Lymph % (Auto) 4.8 L Hardin % (Auto) 4.8 Eos % (Auto) 0.8 Baso % (Auto) 0.3 Neut # (Auto) 13.9 H Lymph # (Auto) 0.7 L Hardin # (Auto) 0.7 Eos # (Auto) 0.1 Baso # (Auto) 0.1 WBC Differential . Differential Comment Auto diff final APTT Puncture Site Patient Temperature O2 Saturation ABG pH ABG pCO2 ABG pO2 ABG HCO3 ABG O2 Content ABG Base Excess ABG Methemoglobin David Test Hemoglobin Carboxyhemoglobin O2 Delivery Device Vent Setting Inspired O2 Critical Value Sodium 145 Potassium 3.9 Chloride 109 H Carbon Dioxide 29.9 Anion Gap 6 BUN 15 Creatinine 0.81 Estimated GFR Greater than 89 POC Glucose 216 H Random Glucose 257 H Calcium 8.1 L Phosphorus 2.1 L Magnesium 2.2 Total Bilirubin 0.4 AST 67 H ALT 51 Alkaline Phosphatase 85 Ammonia Total Creatine Kinase CK-MB (CK-2) CK-MB (CK-2) % Troponin I Total Protein 5.5 L Albumin 2.0 L Cortisol Phenytoin 12.7 Phenobarbital 3.1 L 05/13/18 05/13/18 05/13/18 04:25 04:26 07:09 WBC RBC Hgb Hct MCV MCH MCHC RDW Plt Count MPV Neut % (Auto) Lymph % (Auto) Hardin % (Auto) Eos % (Auto) Baso % (Auto) Neut # (Auto) Lymph # (Auto) Hardin # (Auto) Eos # (Auto) Baso # (Auto) WBC Differential Differential Comment APTT 43.0 H Puncture Site Janey Patient Temperature 98.6 O2 Saturation 97 ABG pH 7.46 H ABG pCO2 35 L ABG pO2 123 H ABG HCO3 25 ABG O2 Content 17.6 ABG Base Excess 1.2 ABG Methemoglobin 1.4 David Test Present Hemoglobin 12.9 Carboxyhemoglobin 0.7 O2 Delivery Device Ventilator Vent Setting See comments Inspired O2 40 Critical Value No Sodium Potassium Chloride Carbon Dioxide Anion Gap BUN Creatinine Estimated GFR POC Glucose 238 H Random Glucose Calcium Phosphorus Magnesium Total Bilirubin AST ALT Alkaline Phosphatase Ammonia Total Creatine Kinase CK-MB (CK-2) CK-MB (CK-2) % Troponin I Total Protein Albumin Cortisol Phenytoin Phenobarbital 05/13/18 05/13/18 05/13/18 07:52 09:20 09:20 WBC RBC Hgb Hct MCV MCH MCHC RDW Plt Count MPV Neut % (Auto) Lymph % (Auto) Hardin % (Auto) Eos % (Auto) Baso % (Auto) Neut # (Auto) Lymph # (Auto) Hardin # (Auto) Eos # (Auto) Baso # (Auto) WBC Differential Differential Comment APTT Puncture Site Patient Temperature O2 Saturation ABG pH ABG pCO2 ABG pO2 ABG HCO3 ABG O2 Content ABG Base Excess ABG Methemoglobin David Test Hemoglobin Carboxyhemoglobin O2 Delivery Device Vent Setting Inspired O2 Critical Value Sodium Potassium Chloride Carbon Dioxide Anion Gap BUN Creatinine Estimated GFR POC Glucose 237 H Random Glucose Calcium Phosphorus Magnesium Total Bilirubin AST ALT Alkaline Phosphatase Ammonia 11 Total Creatine Kinase CK-MB (CK-2) CK-MB (CK-2) % Troponin I Total Protein Albumin Cortisol 23.8 Phenytoin Phenobarbital 05/13/18 05/13/18 05/13/18 11:51 16:11 19:58 WBC RBC Hgb Hct MCV MCH MCHC RDW Plt Count MPV Neut % (Auto) Lymph % (Auto) Hardin % (Auto) Eos % (Auto) Baso % (Auto) Neut # (Auto) Lymph # (Auto) Hardin # (Auto) Eos # (Auto) Baso # (Auto) WBC Differential Differential Comment APTT Puncture Site Patient Temperature O2 Saturation ABG pH ABG pCO2 ABG pO2 ABG HCO3 ABG O2 Content ABG Base Excess ABG Methemoglobin David Test Hemoglobin Carboxyhemoglobin O2 Delivery Device Vent Setting Inspired O2 Critical Value Sodium Potassium Chloride Carbon Dioxide Anion Gap BUN Creatinine Estimated GFR POC Glucose 304 H 179 H 201 H Random Glucose Calcium Phosphorus Magnesium Total Bilirubin AST ALT Alkaline Phosphatase Ammonia Total Creatine Kinase CK-MB (CK-2) CK-MB (CK-2) % Troponin I Total Protein Albumin Cortisol Phenytoin Phenobarbital 05/13/18 05/14/18 05/14/18 23:57 04:05 04:05 WBC 11.6 H RBC 4.26 L Hgb 12.2 L Hct 36.3 L MCV 85.1 MCH 28.5 MCHC 33.6 RDW 15.1 Plt Count 200 MPV 8.9 Neut % (Auto) 81.1 H Lymph % (Auto) 7.6 L Hardin % (Auto) 7.3 Eos % (Auto) 3.6 Baso % (Auto) 0.4 Neut # (Auto) 9.4 H Lymph # (Auto) 0.9 L Hardin # (Auto) 0.8 Eos # (Auto) 0.4 Baso # (Auto) 0.0 WBC Differential . Differential Comment Auto diff final APTT Puncture Site Patient Temperature O2 Saturation ABG pH ABG pCO2 ABG pO2 ABG HCO3 ABG O2 Content ABG Base Excess ABG Methemoglobin David Test Hemoglobin Carboxyhemoglobin O2 Delivery Device Vent Setting Inspired O2 Critical Value Sodium 143 Potassium 3.7 Chloride 110 H Carbon Dioxide 27.0 Anion Gap 6 BUN 16 Creatinine 0.65 Estimated GFR Greater than 89 POC Glucose 173 H Random Glucose 234 H Calcium 8.1 L Phosphorus 2.2 L Magnesium 2.0 Total Bilirubin AST ALT Alkaline Phosphatase Ammonia Total Creatine Kinase CK-MB (CK-2) CK-MB (CK-2) % Troponin I 12.50 H* Total Protein Albumin Cortisol Phenytoin 12.4 Phenobarbital 7.8 L 05/14/18 05/14/18 05/14/18 04:05 04:23 05:33 WBC RBC Hgb Hct MCV MCH MCHC RDW Plt Count MPV Neut % (Auto) Lymph % (Auto) Hardin % (Auto) Eos % (Auto) Baso % (Auto) Neut # (Auto) Lymph # (Auto) Hardin # (Auto) Eos # (Auto) Baso # (Auto) WBC Differential Differential Comment APTT 42.0 H Puncture Site Patient Temperature O2 Saturation ABG pH ABG pCO2 ABG pO2 ABG HCO3 ABG O2 Content ABG Base Excess ABG Methemoglobin David Test Hemoglobin Carboxyhemoglobin O2 Delivery Device Vent Setting Inspired O2 Critical Value Sodium Potassium Chloride Carbon Dioxide Anion Gap BUN Creatinine Estimated GFR POC Glucose 209 H 245 H Random Glucose Calcium Phosphorus Magnesium Total Bilirubin AST ALT Alkaline Phosphatase Ammonia Total Creatine Kinase CK-MB (CK-2) CK-MB (CK-2) % Troponin I Total Protein Albumin Cortisol Phenytoin Phenobarbital 05/14/18 08:28 WBC RBC Hgb Hct MCV MCH MCHC RDW Plt Count MPV Neut % (Auto) Lymph % (Auto) Hardin % (Auto) Eos % (Auto) Baso % (Auto) Neut # (Auto) Lymph # (Auto) Hardin # (Auto) Eos # (Auto) Baso # (Auto) WBC Differential Differential Comment APTT Puncture Site Patient Temperature O2 Saturation ABG pH ABG pCO2 ABG pO2 ABG HCO3 ABG O2 Content ABG Base Excess ABG Methemoglobin David Test Hemoglobin Carboxyhemoglobin O2 Delivery Device Vent Setting Inspired O2 Critical Value Sodium Potassium Chloride Carbon Dioxide Anion Gap BUN Creatinine Estimated GFR POC Glucose 219 H Random Glucose Calcium Phosphorus Magnesium Total Bilirubin AST ALT Alkaline Phosphatase Ammonia Total Creatine Kinase CK-MB (CK-2) CK-MB (CK-2) % Troponin I Total Protein Albumin Cortisol Phenytoin Phenobarbital Result Diagrams: 05/14/18 04:05 05/14/18 04:05 Microbiology: Microbiology 05/13/18 11:50 Gram Stain - Final Sputum - Endotracheal Sputum Culture - Preliminary S. aureus MRSA 05/09/18 16:00 Aerobic Blood Culture - Final Blood - Line No growth in 5 days Anaerobic Blood Culture - Final No growth in 5 days 05/08/18 21:38 Aerobic Blood Culture - Final Blood - Peripheral No growth in 5 days Anaerobic Blood Culture - Final No growth in 5 days 05/08/18 21:33 Aerobic Blood Culture - Final Blood - Peripheral No growth in 5 days Anaerobic Blood Culture - Final No growth in 5 days Procedures: 05/08: Endotracheal intubation 05/12: Left IJ central line Assessment and Plan - Disease Oriented Problem List (1) Acute respiratory failure (2) Hypoxic encephalopathy (3) Ischemic cardiomyopathy (4) Cardiac arrest - Symptom Scale (1) Pain 0-10 Scale: Unable to quantify Pertinent Non-Medical Issues: Psychosocial: Patient originally from [place], moved to [place] 14 years ago. for the past 14 years. Has 1 biological son, Valente who is 42 y/o and resizing [place]. 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 No service. Spiritual: No tenriism affiliation reported. Legal: No advanced directives completed. Ethical issues impacting care: No ethical issues have been identified. Important Contacts: Patient's Dyan . Prognosis: Mr. Siddiqui is a 63-year-old male with no significant past medical history who presented to ED status post V. fib/V. tach arrest. Clinical course complicated by persistent post anoxic seizures. Overall poor prognosis for meaningful neurological recovery. Patient at high risk for further complications, continued decline and . Code Status: Alternative Code Plan: * CODE STATUS: Intubation only/no cardiac code. * HEALTHCARE DECISION-MAKING: Patient unable to participate in medical decision making in the setting of anoxic brain. Not likely to regain medical decision making capacity. No advance directives completed. As per [place] statue in the absence of AD, healthcare proxy decision making falls to patient's Dyan Siddiqui. has accepted this role and is fully supported by patient's sister and son. * GOALS OF CARE: Patient's acting as healthcare proxy decision-maker has elected to continue current management short of NO cardiac code, allow a few more days to reevaluate patient's clinical condition and overall prognosis for a meaningful neurological recovery. reports that patient has verbalized in many occasions that "if he was unable to return to his independent self ( talking, walking, independent with ADL's, riding his motorcycle), any other alternative would NOT be an acceptable quality of life". will NOT proceed with trach/peg if patient is unable to med extubate. * SYMPTOMS: =Pain: Secondary to multiple lines, intubation, bedrest. Fentanyl drip currently on hold. Morphine 2 mg IV every 2 hours available as needed. No further recommendations. * Palliative care contact information has been provided to patient's . * Ongoing emotional support and active listening provided. Spiritual services offered and declined. * Case discussed with Dr. Roblero and bedside RN Cole. * Palliative care to continue to follow-up for further clarifications of goals of care, family support as patient's clinical course continues to evolve. Time Spent Total Floor Time (mins): 40 (Total time to include review of medical records, physical exam, goals of care conversation with patient's , case discussion with attending and bedside RN.) >50% Time in Counseling or Coordination of Care: Yes (Total visit time = 40 minutes; > 50% spent counseling/coordinating care) Attestation Attestation: To help prompt me to consider important information that might be impacting today's encounter and assessment, information from prior notes written by myself or my colleagues may have been "brought forward" into today's note. My signature on this note, however, is an attestation that I personally performed the exam, history, and/or decision-making noted today, and, unless otherwise indicated, the interactions with patient, family, and staff as well as the review of records all occurred today. I also attest that the listed assessment and stated plan reflect my best clinical judgment today based on the combination of historical information, prior notes, and today's exam/ interactions. When time spent is documented, it refers only to time spent today by the signer, or if indicated, combined time spent today by collaborating physician/nurse practitioner.
[2018-05-14] MEDS: Pantoprazole Inj 40 MG Vial IV.PUSH SCH (16:15)
[2018-05-14] MEDS: Propofol 1000 mg/100 ml Inj 1,000 MG/100 ML BOTTLE IV.CONT PRN (20:01)
[2018-05-14] MEDS ORDERED: Pharmacy Ordered Lab Info OTHER ONE (23:45)
[2018-05-15] MEDS: Propofol 1000 mg/100 ml Inj 1,000 MG/100 ML BOTTLE IV.CONT PRN ×3 (01:26→18:00)
[2018-05-15 02:25] LABS: Phosphorus 2.2 mg/dL (2.5-4.9)
[2018-05-15 02:26] LABS: Vancomycin,Trough 8.8 mcg/mL (5.0-10.0)
[2018-05-15 04:35] LABS: Baso # (Auto) 0.1 th/mm3 (0.0-0.2); Baso % (Auto) 0.7 % (0.0-2.0); Eos # (Auto) 0.4 th/mm3 (0.0-0.4); Eos % (Auto) 3.3 % (0.0-4.0); Hematocrit 37.1 % (39.0-51.0); Hemoglobin 12.3 gm/dL (13.0-17.0); Lymph # (Auto) 0.9 th/mm3 (1.0-4.8); Lymph % (Auto) 8.6 % (9.0-44.0); Mean Corpuscular HGB Conc 33.1 % (32.0-36.0); Mean Corpuscular Hemoglobin 28.5 pg (27.0-34.0); Mean Platelet Volume 8.5 fL (7.0-11.0); Mono # (Auto) 0.9 th/mm3 (0.0-0.9); Mono % (Auto) 8.2 % (0.0-8.0); Neut # (Auto) 8.7 th/mm3 (1.8-7.7); Neut % (Auto) 79.2 % (16.0-70.0); Platelet Count 206 th/mm3 (150-450); Red Blood Count 4.31 mil/mm3 (4.50-5.90); Red Cell Distribution Width 14.7 % (11.6-17.2)
[2018-05-15] MEDS: Insulin NovoLOG Aspart Correctional Sugar Inj SQ SCH ×6 (04:54→23:54)
[2018-05-15] MEDS: Oral Hygiene Kit OROPHARYNG SCH ×4 (04:55→23:54)
[2018-05-15] MEDS: Artificial Tears Opth Drops 15 ML Bottle EACH EYE SCH ×3 (04:55→20:31)
[2018-05-15] MEDS: Piperacil/Tazo 4.5 GM Premix 4.5 GM/100 ML BAG IV.SIG SCH ×4 (04:56→22:07)
[2018-05-15] MEDS: PHENobarbital Inj 130 MG/ML Vial IV.PUSH SCH ×2 (05:04→14:18)
[2018-05-15] MEDS: Fosphenytoin Inj 100 MGPE in Sodium Chlor 0.9% Inj 50 ML IV.SIG SCH ×3 (05:04→22:07)
[2018-05-15 05:05] LABS: Anion Gap 8 meq/L (5-15); Blood Urea Nitrogen 16 mg/dL (7-18); Calcium 8.2 mg/dL (8.5-10.1); Carbon Dioxide 26.9 meq/L (21.0-32.0); Chloride 108 meq/L (98-107); Glomerular Filtration Rate Greater Than 89 mL/min (>89); Glucose,Random 235 mg/dL (74-106); Magnesium 2.1 mg/dL (1.5-2.5); Potassium 3.5 meq/L (3.5-5.1); Sodium 143 meq/L (136-145)
[2018-05-15 05:07] LABS: Phenytoin (Dilantin) 13.1 mcg/mL (10.0-20.0)
--- NOTE | 2018-05-15 05:38 | XR ---
EXAM DATE: 05/15/2018 5:27 AM EST AGE/SEX: 63 years / Male INDICATIONS: Shortness of breath. CLINICAL DATA: This is the patient's subsequent encounter. Patient reports that signs and symptoms h ave been present for 1 week and indicates a pain score of Nonresponsive. MEDICAL/SURGICAL HISTORY: Seizures. . COMPARISON: [facility] – [place], CHEST 1V SINGLE AP, 05/13/2018. . FINDINGS: Single AP view of the chest. Endotracheal tube, nasogastric tube, left IJ central venous catheter rem ain in place. Persistent bilateral pulmonary opacity and bilateral pleural effusions. No significant interval change. No evidence of pneumothorax. CONCLUSION: No significant interval change with persistent bilateral pulmonary parenchymal opacity and bilateral pleural effusions. Electronically signed by: Herman Monroe MD 05/15/2018 5:36 AM EST
--- NOTE | 2018-05-15 07:58 | P.PNCC ---
Subjective Subjective Remarks/Hospital Course: 63-year-old male presents to emergency department intubated after VF/VT arrest. He had to be defibrillated twice in the field, afterwards clear STEMI criteria was called by [facility]. Apparently heard a collapse in the next room found the patient unresponsive called 9 1. Apparently total downtime was about 10 minutes and had a very quick Rask. Blood pressure was little low and dopamine drip was started in the field. Patient also had amiodarone started in the field. Initially the STEMI alert was called brain demonstrated punctate hyperdensity characteristic of hemorrhage in the right mid araseli in the STEMI alert was canceled. The patient has been admitted to ICU for hypothermia protocol treatment post cardiac arrest. 05/09: Discussed with at bedside. Currently on target temperature monitoring. EEG performed. Replacing potassium and phosphorus this a.m. 05/10: Currently temperature is a 97. Has been rewarmed from target temperature monitoring. EEG revealed no epileptic activity. Replace potassium currently. MRI brain revealed no signs of hemorrhage. Will start on heparin drip IN protocol 900 units an hour and provide aspirin. Carvedilol started by cardiology during the a.m. 05/11: Phosphorus being replaced. Weaning off sedation currently. Rewarmed to 37 C. No problem. Tolerating tube feeds currently at 30 cc now. Subjective: 05/12: Currently resting in bed. New central has been placed and targeted temperature monitoring Quatro catheter has been removed. Seizures overnight. Currently on fosphenytoin and levetiracetam. Remains on midazolam drip. Updated at bedside. 05/13: Low-grade temperature during the night continues greater than 99.0., Noted blood cultures negative growth to date. Remains encephalopathic .EEG revealed continued epileptiform activity. Patient noted phenobarbital level this a.m. subtherapeutic at 3.1. Noted persistent leukocytosis, bilateral pulmonary opacities, sputum culture pending. Palliative care has been consulted. 05/14: Sedative discontinued early this a.m.. Noted spontaneous eye opening with neurologist Dr. Connor at the bedside, not following any commands. EEG revealed a few spikes, patient continues on anticonvulsant regimen and seizure precautions. Noted hypertension systolic blood pressure greater than 170 Vasotec reinitiated. discussed findings with Dr. Connor at bedside we will continue to monitor discontinue all sedatives and continually evaluate neurological status. Plan this afternoon to meet with patient's Mrs. Siddiqui and palliative care. 05/15: Off all sedation noted spontaneous movement but not following any commands with excessive yawning and grimacing noted. Patient placed back on propofol low-dose infusion. Palliative care conference with patient's reveal patient to be placed in a no CPR CODE STATUS at this time. Discussion with Dr. Connor, neurology yesterday we will continue to monitor and evaluate optimizing care and continued evaluation at this time. No change in respiratory requirements however chest x-ray noted bilateral pleural effusions IV infusions decreased patient now normotensive carvedilol reinitiated. Objective Vital Signs / I&O: Vital Signs 05/14/18 08:00 05/14/18 09:00 05/14/18 10:00 Temperature 100.9 F H 100.8 F H 101.5 F H Pulse Rate 83 84 85 Respiratory Rate Blood Pressure 150/82 H 152/79 H Pulse Oximetry 97 98 96 05/14/18 11:00 05/14/18 12:00 05/14/18 12:23 Temperature 101.1 F H 101.5 F H Pulse Rate 84 84 85 Respiratory Rate 14 23 Blood Pressure 132/70 Pulse Oximetry 96 97 05/14/18 13:00 05/14/18 14:00 05/14/18 15:00 Temperature 100.9 F H 100.6 F H 100.6 F H Pulse Rate 83 83 84 Respiratory Rate Blood Pressure Pulse Oximetry 97 97 05/14/18 16:00 05/14/18 16:05 05/14/18 16:10 Temperature 101.1 F H Pulse Rate 83 83 Respiratory Rate 14 21 16 Blood Pressure 133/71 Pulse Oximetry 96 96 05/14/18 17:00 05/14/18 18:00 05/14/18 19:00 Temperature 101.1 F H 100.9 F H 100.8 F H Pulse Rate 83 79 78 Respiratory Rate Blood Pressure Pulse Oximetry 97 96 96 05/14/18 19:23 05/14/18 19:58 05/14/18 20:00 Temperature 100.8 F H 100.8 F H Pulse Rate 77 76 77 Respiratory Rate 17 19 Blood Pressure 120/62 121/64 Pulse Oximetry 97 97 97 05/14/18 21:00 05/14/18 22:00 05/14/18 23:00 Temperature 100.6 F H 100.8 F H 100.8 F H Pulse Rate 79 79 79 Respiratory Rate Blood Pressure 128/64 130/67 126/73 Pulse Oximetry 97 97 97 05/15/18 00:00 05/15/18 00:02 05/15/18 01:00 Temperature 100.6 F H 100.8 F H Pulse Rate 78 88 Respiratory Rate 17 20 Blood Pressure 134/75 129/62 Pulse Oximetry 97 98 93 L 05/15/18 02:00 05/15/18 03:00 05/15/18 03:42 Temperature 100.8 F H 100.4 F H Pulse Rate 82 80 77 Respiratory Rate 17 Blood Pressure 139/65 142/70 H Pulse Oximetry 95 96 97 05/15/18 04:00 05/15/18 07:19 Temperature 99.1 F Pulse Rate 80 74 Respiratory Rate 19 Blood Pressure 136/71 Pulse Oximetry 96 97 Intake & Output 05/14/18 05/15/18 05/15/18 18:59 06:59 18:59 Intake Total 3096.0 / 3096.0 2757.5 / 2757.5 Output Total 3600 / 3600 1025 / 1025 Balance -504.0 / -504.0 1732.5 / 1732.5 Weight 91.8 kg Intake: IV 2389.0 / 2389.0 1871.5 / 1871.5 Heparin/D5W 25,000 U/250 mL 25, 250 / 250 000 unit In 250 ml @ Per Protocol IV.CONT TITRATE PRN Rx #:[id number] Diprivan 1000 mg/100 ml Inj 1, 200 / 200 000 mg In 100 ml @ 5 MCG/KG/MIN 2.449 mls/hr IV.CONT TITRATE PRN Rx#:[id number] NS Inj 1,000 ML @ 84 mls/hr IV. 1000 / 1000 1000 / 1000 CONT .[id number] [facility] Rx#:[id number] Cerebyx Inj 100 MGPE In NS Inj 104 / 104 104 / 104 50 ML @ 208 mls/hr IV.SIG Q8HR [facility] Rx#:[id number] Zosyn 4.5 GM Premix 4.5 gm In 300 / 300 200 / 200 100 ml @ 200 mls/hr IV.SIG Q6H [facility] Rx#:[id number] Vancomycin Inj 1,250 MG In NS 525.0 / 525.0 262.5 / 262.5 Inj 250 ML @ 250 mls/hr IV.SIG Q12H [facility] Rx#:[id number] Keppra Inj 500 MG In NS Inj 100 210 / 210 105 / 105 ML @ 400 mls/hr IV.SIG Q12H [facility] Rx#:[id number] Tube Feeding 607 / 607 766 / 766 Tube Irrigant 120 / 120 Water Bolus Amount 100 / 100 Output: Urine 3600 / 3600 Urine Amount (Catheter) 1025 / 1025 Indwelling Temp Sensing 1025 / 1025 Catheter Other: Date of Last Bowel Movement 05/14/18 05/14/18 # Incontinent Bowel Movements 2 0 Result Diagrams: 05/15/18 04:24 05/15/18 04:24 Other Results: Laboratory Results WBC 11.0 th/mm3 (4.0-11.0) 05/15/18 04:24 RBC 4.31 mil/mm3 (4.50-5.90) L 05/15/18 04:24 Hgb 12.3 gm/dL (13.0-17.0) L 05/15/18 04:24 POC Hgb (Calc) 15.6 g/dL (13.0-17.0) 05/08/18 20:45 Hct 37.1 % (39.0-51.0) L 05/15/18 04:24 POC Hct 46.0 % (39-51.0) 05/08/18 20:45 MCV 86.0 fL (80.0-100.0) 05/15/18 04:24 MCH 28.5 pg (27.0-34.0) 05/15/18 04:24 MCHC 33.1 % (32.0-36.0) 05/15/18 04:24 RDW 14.7 % (11.6-17.2) 05/15/18 04:24 Plt Count 206 th/mm3 (150-450) 05/15/18 04:24 MPV 8.5 fL (7.0-11.0) 05/15/18 04:24 Prelim Diff (Auto) Slide review pending 05/08/18 20:45 Neut % (Auto) 79.2 % (16.0-70.0) H 05/15/18 04:24 Lymph % (Auto) 8.6 % (9.0-44.0) L 05/15/18 04:24 [place] % (Auto) 8.2 % (0.0-8.0) H 05/15/18 04:24 Eos % (Auto) 3.3 % (0.0-4.0) 05/15/18 04:24 Baso % (Auto) 0.7 % (0.0-2.0) 05/15/18 04:24 Neut # (Auto) 8.7 th/mm3 (1.8-7.7) H 05/15/18 04:24 Lymph # (Auto) 0.9 th/mm3 (1.0-4.8) L 05/15/18 04:24 [place] # (Auto) 0.9 th/mm3 (0.0-0.9) 05/15/18 04:24 Eos # (Auto) 0.4 th/mm3 (0.0-0.4) 05/15/18 04:24 Baso # (Auto) 0.1 th/mm3 (0.0-0.2) 05/15/18 04:24 WBC Differential . 05/15/18 04:24 Seg Neuts % (Manual) 63 % (16-70) 05/08/18 20:45 Lymphocytes % (Manual) 21 % (9-44) 05/08/18 20:45 Monocytes % (Manual) 7 % (0-8) 05/08/18 20:45 Eosinophils % (Manual) 9 % (0-4) H 05/08/18 20:45 Abs Neuts (Manual) 8.6 th/mm3 (1.8-7.7) H 05/08/18 20:45 Differential Comment Auto diff final 05/15/18 04:24 Platelet Estimate Normal (Normal) 05/08/18 20:45 Platelet Morphology Normal (Normal) 05/08/18 20:45 RBC Morphology Normal (Normal) 05/08/18 20:45 PT 11.6 sec (9.8-11.6) 05/10/18 16:10 INR 1.1 Ratio 05/10/18 16:10 APTT 40.1 sec (23.4-31.7) H 05/15/18 04:24 Puncture Site [place] 05/13/18 07:09 Patient Temperature 98.6 05/13/18 07:09 O2 Saturation 97 % (90-100) 05/13/18 07:09 ABG pH 7.46 (7.380-7.420) H 05/13/18 07:09 ABG pCO2 35 mmHg (38-42) L 05/13/18 07:09 ABG pO2 123 mmHG (61-120) H 05/13/18 07:09 ABG HCO3 25 mmol/L (22-26) 05/13/18 07:09 ABG O2 Content 17.6 Vol % (12.0-20.0) 05/13/18 07:09 ABG Base Excess 1.2 mmol/L (-2-2) 05/13/18 07:09 ABG Methemoglobin 1.4 % (0-2) 05/13/18 07:09 David Test Present 05/13/18 07:09 Hemoglobin 12.9 G/DL (12.0-16.0) 05/13/18 07:09 Carboxyhemoglobin 0.7 % (0-4) 05/13/18 07:09 O2 Delivery Device Ventilator 05/13/18 07:09 Vent Setting See comments 05/13/18 07:09 Inspired O2 40 % 05/13/18 07:09 Critical Value No 05/13/18 07:09 POC Sodium 137 mmol/L (137-144) 05/08/18 20:45 Sodium 143 meq/L (136-145) 05/15/18 04:24 POC Potassium 3.2 mmol/L (3.6-5.0) L 05/08/18 20:45 Potassium 3.5 meq/L (3.5-5.1) 05/15/18 04:24 POC Chloride 96 mmol/L (102-111) L 05/08/18 20:45 Chloride 108 meq/L (98-107) H 05/15/18 04:24 Carbon Dioxide 26.9 meq/L (21.0-32.0) 05/15/18 04:24 Anion Gap 8 meq/L (5-15) 05/15/18 04:24 POC BUN 6 mg/dL (5-21) 05/08/18 20:45 BUN 16 mg/dL (7-18) 05/15/18 04:24 Creatinine 0.67 mg/dL (0.60-1.30) 05/15/18 04:24 POC Creatinine 1.0 mg/dL (0.6-1.3) 05/08/18 20:45 Estimated GFR Greater than 89 mL/min (>89) 05/15/18 04:24 POC Glucose 213 mg/dl (68-110) H 05/15/18 04:22 Random Glucose 235 mg/dL (74-106) H 05/15/18 04:24 Hemoglobin A1c 6.5 % (4.3-6.0) H 05/09/18 14:58 Lactic Acid 2.4 mmol/L (0.4-2.0) H 05/09/18 17:45 Calcium 8.2 mg/dL (8.5-10.1) L 05/15/18 04:24 Phosphorus 2.2 mg/dL (2.5-4.9) L 05/14/18 23:15 Magnesium 2.1 mg/dL (1.5-2.5) 05/15/18 04:24 Total Bilirubin 0.4 mg/dL (0.2-1.0) 05/13/18 04:25 Direct Bilirubin 0.3 mg/dL (0.0-0.2) H 05/09/18 01:10 Indirect Bilirubin 0.8 mg/dL (0.0-0.8) 05/09/18 01:10 AST 67 U/L (15-37) H 05/13/18 04:25 ALT 51 U/L (12-78) 05/13/18 04:25 Alkaline Phosphatase 85 U/L (45-117) 05/13/18 04:25 Ammonia 37 mcmol/L (11-32) H 05/15/18 04:24 Total Creatine Kinase 721 U/L (39-308) H 05/12/18 04:45 CK-MB (CK-2) 27.5 ng/mL (0.5-3.6) H 05/12/18 04:45 CK-MB (CK-2) % 3.8 % (0.0-4.0) 05/12/18 04:45 Troponin I 12.50 ng/mL (0.02-0.05) H* 05/14/18 04:05 Total Protein 5.5 g/dL (6.4-8.2) L 05/13/18 04:25 Albumin 2.0 g/dL (3.4-5.0) L 05/13/18 04:25 Triglycerides 89 mg/dL (42-150) 05/09/18 14:58 Cholesterol 129 mg/dL (120-200) 05/09/18 14:58 LDL Cholesterol, Calc 61 mg/dL (0-99) 05/09/18 14:58 HDL Cholesterol 50.7 mg/dL (40.0-60.0) 05/09/18 14:58 Cholesterol/HDL Ratio 2.54 Ratio 05/09/18 14:58 TSH 0.285 uIU/mL (0.358-3.740) L 05/10/18 00:30 Free T4 1.08 ng/dL (0.76-1.46) 05/10/18 15:55 Total T3 70 ng/dL (60-181) 05/10/18 22:15 Cortisol 23.8 mcg/dL 05/13/18 09:20 Urine Color Straw (Yellw/Straw) 05/08/18 22:30 Urine Clarity Clear (Clear) 05/08/18 22:30 Urine pH 6.0 (5.0-8.5) 05/08/18 22:30 Ur Specific [place] 1.005 (1.002-1.035) 05/08/18 22:30 Urine Protein 30 mg/dL (Neg-Trace) H 05/08/18 22:30 Urine Glucose (UA) 500 or greater mg/dL (Negative) 05/08/18 22:30 Urine Ketones Trace mg/dL (Negative) H 05/08/18 22:30 Urine Occult Blood Moderate (Negative) H 05/08/18 22:30 Urine Nitrate Negative (Negative) 05/08/18 22:30 Urine Bilirubin Negative (Negative) 05/08/18 22:30 Urine Urobilinogen Less than 2 mg/dL (Less than 2) 05/08/18 22:30 Ur Leukocyte Esterase Negative (Negative) 05/08/18 22:30 Urine RBC 5 /hpf (0-3) H 05/08/18 22:30 Urine WBC 6 /hpf (0-5) H 05/08/18 22:30 Ur Squamous Epith Cells <1 /hpf (0-5) 11/15/18 22:30 Urine Bacteria Occasional /hpf (None) H 05/08/18 22:30 Micro UA Comment Cath-culture ind 05/08/18 22:30 Ur Microscopic Review Not Reportable 05/08/18 22:30 Urine Culture Comments Cath-cult indicated 05/08/18 22:30 Nasal Screen MRSA (PCR) [place] detected (Negative) 05/08/18 22:30 Vancomycin Trough 8.8 mcg/mL (5.0-10.0) 05/14/18 23:15 Urine Opiates Screen Pos (Neg) H 05/09/18 10:55 Ur Barbiturates Screen Neg (Neg) 05/09/18 10:55 Phenytoin 13.1 mcg/mL (10.0-20.0) 05/15/18 04:24 Ur Amphetamines Screen Neg (Neg) 05/09/18 10:55 Phenobarbital 12.5 mcg/mL (15.0-40.0) L 05/15/18 04:24 U Benzodiazepines Scrn Pos (Neg) H 05/09/18 10:55 Urine Cocaine Screen Neg (Neg) 05/09/18 10:55 U Cannabinoids Screen Neg (Neg) 05/09/18 10:55 Hepatitis A IgM Ab Nonreactive (Nonreactive) 05/09/18 14:58 Hep Bs Antigen Nonreactive (Nonreactive) 05/09/18 14:58 Hep B Core IgM Ab Nonreactive (Nonreactive) 05/09/18 14:58 Hep C IgG Ab Nonreactive (Nonreactive) 05/09/18 14:58 Blood Type O Positive 05/09/18 01:10 Blood Type Recheck Required 05/09/18 01:10 Antibody Screen Negative 05/09/18 01:[address] 05/08/18 20:43 CONCLUSION: 1. Punctate hyperdensity characteristic of hemorrhage in the right mid araseli. 2. No acute findings in the supratentorial brain. . Cervical Spine CT 05/08/18 20:44 CONCLUSION: 1. Moderate degenerative changes at C6-7. 2. Otherwise negative exam. Head MRI 05/10/18 00:00 CONCLUSION: 1. No evidence of acute hemorrhage within the right araseli. 2. No acute infarct, acute hemorrhage, midline shift or extra-axial fluid collection. 3. Mucosal thickening involving the left maxillary sinus, bilateral anterior ethmoid air cells and bilateral sphenoid sinuses. 4. Some fluid within the mastoid air cells bilaterally. Head MRA 05/10/18 06:52 CONCLUSION: 1. Negative MRA [place] ([place]) non contrast. Chest X-Ray 05/15/18 00:00 CONCLUSION: No significant interval change with persistent bilateral pulmonary parenchymal opacity and bilateral pleural effusions. Objective Remarks: GENERAL: 63-year-old male currently orotracheally intubated, SKIN: cool and dry. HEAD: Atraumatic. Normocephalic. EYES: Pupils equal and round and minimally reactive bilaterally. No scleral icterus. No injection or drainage. ENT: No nasal bleeding or discharge. Mucous membranes pink and moist. NECK: Trachea midline. No JVD. Left IJ is clean dry and intact. day 3 CARDIOVASCULAR: RRR S1, S2. No S4. RESPIRATORY: No accessory muscle use. Clear to auscultation. Breath sounds equal bilaterally. GASTROINTESTINAL: Abdomen soft, non-tender, nondistended. Hepatic and splenic margins not palpable. Normal active bowel sounds MUSCULOSKELETAL: Extremities without clubbing, cyanosis, or edema. No obvious deformities. NEUROLOGICAL: Sedation discontinued 05/14. Spontaneously moving extremities x4 not following commands intermittently spontaneous eye opening, positive gag and cough and minimal corneal reflex. Grimacing and excessive yawning on sedation vacation noted Assessment and Plan - Assessment and Plan Plan: Neuro/Psych: Rule out anoxic encephalopathy Hyperammonemia Original CT brain on admission revealed possible 3 mm mid right araseli hemorrhage. Currently propofol infusion at 30 mcgs for sedation/analgesia while intubated, to maintain ventilator synchrony. Daily sedation vacation Goal of RASS -2 Cold cool Catheter removed 05/12. Neurology/Dr. Connor following, discussed plan for continued evaluation with discontinuation of all sedation EEG completed 05/09 with no epileptic activity. Repeat 05/12 with sharp activity. Will repeat 05/13. Currently on fosphenytoin IV 3 times daily and levetiracetam 500 mg IV twice daily and phenobarbital 60 mg 3 times daily. Check fosphenytoin and phenobarbital level in a.m. 05/13 MRI brain revealed left maxillary, bilateral ethmoid and sphenoid sinusitis. MRA brain revealed normal examination. Continue scheduled dosing lactulose twice daily CV Out of hospital cardiac arrest/V. fib Elevated troponin Acute systolic heart failure ejection fraction 30-35% Possible anterior mitral valve ruptured chordae tendon a Currently on amiodarone drip at 0.5 mg/min discontinued 05/13 transitioned to p.o. Cardiology consultation/Dr. Rayos. Melendez for carvedilol 3.125 mg twice daily, start aspirin 81 mg daily and heparin drip that he rates an hour. 05/12 Added enalapril 20 mg daily and atorvastatin 10 mg at night since MRI brain revealed no hemorrhage Originally not candidate for cardiac catheterization due to pontine hemorrhage right mid araseli. This is been changed with MRI/A Troponin elevated 2.86 this a.m. currently elevated at 3.2. Follow until downward trend 2D echocardiogram revealed EF 30-35%. Ruptured chordae tendon possible involving mitral valve. 05/14 carvedilol reinitiated, continues on heparin infusion Resp: Acute respiratory failurelikely aspiration with right lower lobe infiltrate and altered mental status PRVC ventilation Ventilator bundle Head of bed at 30 degrees Albuterol/ipratropium aerosols every 4 hours with albuterol aerosols every 2 hours as needed dyspnea Chest x-ray revealed bilateral pulmonary opacities and small bilateral pleural effusions. GI: Vital 1.5 goal 60 cc output currently 60 cc an hour Pantoprazole for GI prophylaxis Docusate serum/senna 1 tablet twice daily for bowel regimen : [place] catheter placed for accurate I's and O's in a critical patient currentl Endo: Acute hyperglycemia Low TSH Sliding scale insulin with Accu-Cheks to maintain euglycemia. On insulin detemir 4 units twice daily TSH was 0.285. Normal free T4/total T3. Recheck 4-6-week HEME: Leukocytosis-resolved Monitor CBC daily. Follow trends. Leukocytosis downtrending continue to follow CBC de-escalation of antibiotics upon speciation of culture results Continue Vancocin Zosyn Renal Creatinine currently within normal limits Acute I's and O's Heme monitor urine output: ID: Monitor for signs and symptomatology infection Patient with aspiration. Obtain sputum culture-Vanc and Zosyn (day 3) FEN: Replace electrolytes as clinically indicated MSK: PT evaluate and treat Access -Left CVL day 3 Prophylaxis - -GI pantoprazole - -DVT -SCD/heparin drip 35 minutes critical care time. Palliative care has been consult at request of patient's Mrs. Siddiqui planned meeting 1430 this afternoon to define goals of care.
[2018-05-15] MEDS: Chlorhexidine 0.12% Oral Kit 15 ML UDC OROPHARYNG SCH ×2 (08:04→20:29)
[2018-05-15] MEDS: Potassium Phosphate 500 MG Soluble Tablet PO PRN ×2 (08:05→11:54)
[2018-05-15] MEDS: Senna/Docusate Sodium 8.6/50 MG Tablet PO SCH ×2 (08:06→20:30)
[2018-05-15] MEDS: Polyethylene Glycol 3350 17 GM Packet PO SCH ×2 (08:06→20:30)
[2018-05-15] MEDS: Insulin Detemir Inj 1,000 UNIT/10 ML Vial SQ SCH ×2 (08:16→20:30)
[2018-05-15] MEDS: Amiodarone 200 MG Tablet PO SCH (08:18)
[2018-05-15] MEDS: Sod Chloride 0.9% Inj 1,000 ML IV.CONT SCH (08:45)
[2018-05-15 08:52] LABS: ABG Base Excess 3.5 mmol/L (-2-2); ABG PCO2 34 mmHg (38-42); ABG PO2 87 mmHG (61-120)
[2018-05-15] MEDS: Vancomycin Inj 1,750 MG in Sodium Chlor 0.9% Inj 500 ML IV.SIG SCH ×2 (11:38→22:08)
[2018-05-15] MEDS: Pantoprazole Inj 40 MG Vial IV.PUSH SCH (12:00)
[2018-05-15] MEDS: Heparin Drip 25,000 UNIT/250 ML BAG IV.CONT PRN (16:30)
--- NOTE | 2018-05-15 19:41 | P.PNNEU ---
Subjective Subjective Comments: acc to nurse followed commands today Active Medications: Active Medications Acetaminophen (Tylenol) 650 mg PO Q6H PRN PRN Reason: PAIN 1-5 AND/OR FEVER >101F Last Admin: 05/14/18 12:08 Dose: 650 mg Al Hydroxide/Mg Hydroxide (Milk Of Christy Simms) 30 ml PO Q12H PRN PRN Reason: Mild Constipation Albuterol (Albuterol Neb (Prn)) 2.5 mg NEB Q2HR NEB PRN PRN Reason: DYSPNEA Albuterol (Duoneb Neb (Chao)) 1 ampul NEB Q4HR NEB [facility] Last Admin: 05/15/18 15:30 Dose: 1 ampul Amiodarone HCl (Cordarone) 400 mg PO DAILY [facility] Last Admin: 05/15/18 08:18 Dose: 400 mg Artificial Tears (Tears Naturale Opth Drops) 1 drop EACH EYE Q8H [facility] Last Admin: 05/15/18 12:00 Dose: 1 drop Aspirin (Aspirin Chew) 81 mg PO DAILY [facility] Last Admin: 05/15/18 08:06 Dose: 81 mg Atorvastatin Calcium (Lipitor) 10 mg PO HS [facility] Last Admin: 05/14/18 20:04 Dose: 10 mg Bisacodyl (Dulcolax Supp) 10 mg RECTAL DAILY PRN PRN Reason: SEVERE CONSITIPATION Carvedilol (Coreg) 3.125 mg PO BID [facility] Last Admin: 05/13/18 08:01 Dose: Not Given Chlorhexidine Gluconate (Peridex 0.12% Oral Kit) 15 ml OROPHARYNG BID@0800, 2000 [facility] Last Admin: 05/15/18 08:04 Dose: 15 ml Dextrose (D50w Vial) 50 ml IV.PUSH UNSCH PRN PRN Reason: PER HYPOGLYCEMIA PROTOCOL Enalapril Maleate (Vasotec) 2.5 mg PO DAILY [facility] Last Admin: 05/15/18 08:05 Dose: 2.5 mg Furosemide (Lasix Inj) 40 mg IV.PUSH DAILY [facility] Last Admin: 05/15/18 08:17 Dose: 40 mg Glucagon (Glucagon Inj) 1 mg OTHER PRN PRN PRN Reason: for Hypoglycemia Protocol Hydralazine HCl (Apresoline Inj) 10 mg IV.PUSH Q1H PRN PRN Reason: Sbp>140, Dbp>90 Last Admin: 05/10/18 08:00 Dose: 10 mg Sodium Chloride (Ns Inj) 1,000 mls @ 50 mls/hr IV.CONT .Q20H [facility] Last Admin: 05/15/18 08:45 Dose: 50 mls/hr Propofol (Diprivan 1000 Mg/100 Ml Inj) 1,000 mg in 100 mls @ 2.449 mls/hr IV.CONT TITRATE PRN; Protocol PRN Reason: Per Protocol Last Admin: 05/15/18 18:00 Dose: 25 mcg/kg/min, 12.25 mls/hr Fentanyl (Fentanyl 10 Mcg/Ml Premix Drip) 2,500 mcg in 250 mls @ 5 mls/hr IV.SIG TITRATE PRN; Protocol PRN Reason: Per Protocol Last Titration: 05/14/18 19:00 Dose: 0 mcg/hr, 0 mls/hr Norepinephrine Bitartrate 16 (mg/ Sodium Chloride) 250 mls @ 1.87 mls/hr IV.CONT TITRATE PRN; Protocol PRN Reason: See Protocol Last Titration: 05/13/18 11:00 Dose: 0 mcg/min, 0 mls/hr Heparin Sodium/Dextrose (Heparin/D5w 25,000 U/250 Ml) 25,000 unit in 250 mls @ 0 mls/hr IV.CONT TITRATE PRN; Protocol PRN Reason: Per Protocol Last Admin: 05/15/18 16:30 Dose: 900 units/hr, 9 mls/hr Piperacillin/Tazobactam/Dextrose (Zosyn 4.5 Gm Premix) 4.5 gm in 100 mls @ 200 mls/hr IV.SIG Q6H [facility] Last Infusion: 05/15/18 18:38 Dose: Infused Midazolam HCl (Versed Inj) 100 mg in 100 mls @ 2 mls/hr IV.CONT TITRATE PRN; Protocol PRN Reason: Per Protocol Last Titration: 05/14/18 19:00 Dose: 0 mg/hr, 0 mls/hr Magnesium Sulfate 4 gm/ Sodium (Chloride) 100 mls @ 50 mls/hr IV.SIG UNSCH PRN PRN Reason: For Magnesium 0.9 - 1.1 mg/dL Magnesium Sulfate 2 gm/ Sodium (Chloride) 100 mls @ 50 mls/hr IV.SIG UNSCH PRN PRN Reason: For Magnesium 1.2 - 1.6 mg/dL Potassium Chloride (Kcl 40 Meq Premix Inj) 40 meq in 100 mls @ 25 mls/hr IV.SIG Q2H PRN PRN Reason: For Potassium 2.8 - 3.2 mEq/L Last Infusion: 05/12/18 14:09 Dose: Infused Potassium Chloride (Kcl 20 Meq Premix Inj) 20 meq in 100 mls @ 50 mls/hr IV.SIG Q2H PRN PRN Reason: For Potassium 3.3 - 3.5 mEq/L Potassium Chloride (Kcl 40 Meq Premix Inj) 40 meq in 100 mls @ 25 mls/hr IV.SIG UNSCH PRN PRN Reason: For Potassium 3.3 - 3.5 mEq/L Potassium Chloride (Kcl 20 Meq Premix Inj) 20 meq in 100 mls @ 50 mls/hr IV.SIG Q2H PRN PRN Reason: For Potassium 2.8 - 3.2 mEq/L Potassium Phosphate 30 mmol/ (Sodium Chloride) 260 mls @ 42 mls/hr IV.SIG UNSCH PRN PRN Reason: SEE LABEL COMMENTS Sodium Phosphate 30 mmol/ (Sodium Chloride) 260 mls @ 42 mls/hr IV.SIG UNSCH PRN PRN Reason: For Phosphorus < 2.5 mg/dL Levetiracetam 500 mg/ Sodium (Chloride) 105 mls @ 400 mls/hr IV.SIG Q12H [facility] Last Infusion: 05/15/18 18:37 Dose: Infused Fosphenytoin Sodium 100 mgpe/ (Sodium Chloride) 52 mls @ 208 mls/hr IV.SIG Q8HR [facility] Last Infusion: 05/15/18 18:37 Dose: Infused Vancomycin HCl 1,750 mg/ (Sodium Chloride) 517.5 mls @ 250 mls/hr IV.SIG Q12H [facility] Last Infusion: 05/15/18 18:37 Dose: Infused Insulin Aspart (Novolog Insulin Correctional Sugar Inj) 0 unit SQ Q4HR [facility]; Protocol Last Admin: 05/15/18 16:33 Dose: Not Given Insulin Detemir (Levemir Inj) 4 unit SQ BID [facility] Last Admin: 05/15/18 08:16 Dose: 4 unit Labetalol HCl (Trandate Inj) 10 mg IV.PUSH Q1H PRN PRN Reason: Sbp>140, Dbp>90, Hr>65 Last Admin: 05/10/18 14:30 Dose: 10 mg Lactulose (Lactulose Liq) 30 ml PO DAILY PRN PRN Reason: SEVERE CONSITIPATION Lactulose (Lactulose Liq) 30 ml PO BID [facility] Last Admin: 05/15/18 08:17 Dose: 30 ml Lorazepam (Ativan Inj) 1 mg IV.PUSH Q1H PRN PRN Reason: SEE LABEL COMMENTS Lorazepam (Ativan Inj) 2 mg IV.PUSH Q1H PRN PRN Reason: SEIZURE ACTIVITY Magnesium Oxide (Mag-Ox) 800 mg PO UNSCH PRN PRN Reason: For Magnesium 1.2 - 1.6 mg/dL Midazolam HCl (Versed Inj) 2 mg IV.PUSH Q1H PRN PRN Reason: SEE LABEL COMMENTS Last Admin: 05/10/18 14:30 Dose: 2 mg Miscellaneous Information ([facility] Ordered Lab Info) 0 each OTHER ONCE ONE Stop: 05/16/18 10:46 Miscellaneous Medication () 1 each OROPHARYNG 0000,0400,1200,1600 [facility] Last Admin: 05/15/18 16:29 Dose: 1 each Morphine Sulfate (Morphine Inj) 2 mg IV.PUSH Q2H PRN PRN Reason: PAIN SCALE 6 TO 10 Ondansetron HCl (Zofran Inj) 4 mg IV.PUSH Q6H PRN PRN Reason: NAUSEA OR VOMITING Pantoprazole Sodium (Protonix Inj) 40 mg IV.PUSH Q24H [facility] Last Admin: 05/15/18 12:00 Dose: 40 mg Pharmacy Profile Note (Vancomycin Consult Pharmacy) 1 each OTHER UNSCH PRN PRN Reason: Pharmacy to dose Phenobarbital Sodium (Luminal Inj) 90 mg IV.PUSH Q8HR [facility] Last Admin: 05/15/18 14:18 Dose: 90 mg Polyethylene Glycol (Miralax) 17 gm PO BID [facility] Last Admin: 05/15/18 08:06 Dose: 17 gm Potassium Bicarb/Potassium Chloride (K-Lyte Cl Eff) 50 meq PO UNSCH PRN PRN Reason: For Potassium 3.3 - 3.5 mEq/L Potassium Phosphate (K-Phos Original) 2,000 mg PO Q4H PRN PRN Reason: Phosphorus Less Than 2.5 mg/dL Last Admin: 05/13/18 09:56 Dose: 2,000 mg Potassium Phosphate (K-Phos Original) 2,000 mg PO UNSCH PRN PRN Reason: SEE LABEL COMMENTS Last Admin: 05/15/18 11:54 Dose: 2,000 mg Senna/Docusate Sodium (Lizbeth-Colace) 1 tab PO BID [facility] Last Admin: 05/15/18 08:06 Dose: 1 tab Sennosides (Senokot) 17.2 mg PO Q12H PRN PRN Reason: Moderate Constipation Sodium Chloride (Ns Flush) 2 ml IV.FLUSH BID [facility] Last Admin: 05/15/18 08:23 Dose: 2 ml Sodium Chloride (Ns Flush) 2 ml IV.FLUSH PRN PRN PRN Reason: FLUSH AFTER USING IV ACCESS Sodium Chloride (Ns Flush) 0 ml IV.FLUSH DAILY [facility] Last Admin: 05/15/18 08:23 Dose: 6 ml Terbutaline Sulfate (Brethine Inj) 1 mg SQ UNSCH PRN PRN Reason: For Extravasation Allergies/Adverse Reactions: Allergies Allergy/AdvReac Type Severity Reaction Status Date / Time No Known Allergies Allergy Uncoded 02/17/15 12:05 Physical Exam Vital signs: Vital Signs 05/14/18 19:58 05/14/18 20:00 05/14/18 21:00 Temperature 100.8 F H 100.8 F H 100.6 F H Pulse Rate 76 77 79 Respiratory Rate 19 Blood Pressure 120/62 121/64 128/64 Pulse Oximetry 97 97 97 05/14/18 22:00 05/14/18 23:00 05/15/18 00:00 Temperature 100.8 F H 100.8 F H 100.6 F H Pulse Rate 79 79 78 Respiratory Rate 17 Blood Pressure 130/67 126/73 134/75 Pulse Oximetry 97 97 97 05/15/18 00:02 05/15/18 01:00 05/15/18 02:00 Temperature 100.8 F H 100.8 F H Pulse Rate 88 82 Respiratory Rate 20 Blood Pressure 129/62 139/65 Pulse Oximetry 98 93 L 95 05/15/18 03:00 05/15/18 03:42 05/15/18 04:00 Temperature 100.4 F H 99.1 F Pulse Rate 80 77 80 Respiratory Rate 17 Blood Pressure 142/70 H 136/71 Pulse Oximetry 96 97 96 05/15/18 07:00 05/15/18 07:19 05/15/18 08:00 Temperature 99.7 F H 99.5 F Pulse Rate 74 74 77 Respiratory Rate 19 Blood Pressure 145/65 H 119/72 Pulse Oximetry 97 97 96 05/15/18 09:00 05/15/18 10:46 05/15/18 12:00 Temperature 100.2 F H 100.0 F H Pulse Rate 83 82 80 Respiratory Rate 20 Blood Pressure 137/69 131/66 Pulse Oximetry 95 96 97 05/15/18 13:00 05/15/18 14:00 05/15/18 15:00 Temperature 100.2 F H 100.2 F H 100.2 F H Pulse Rate 82 80 79 Respiratory Rate Blood Pressure 138/64 128/63 138/65 Pulse Oximetry 96 96 97 05/15/18 15:30 05/15/18 16:00 05/15/18 17:00 Temperature 100.2 F H 100.2 F H Pulse Rate 80 81 81 Respiratory Rate 21 Blood Pressure 130/60 128/62 Pulse Oximetry 97 96 96 05/15/18 18:00 Temperature 100.2 F H Pulse Rate 82 Respiratory Rate Blood Pressure 136/68 Pulse Oximetry 97 Intake & Output 05/15/18 05/15/18 05/16/18 06:59 18:59 06:59 Intake Total 2757.5 / 2757.5 2963.5 / 2963.5 Output Total 1025 / 1025 2700 / 2700 Balance 1732.5 / 1732.5 263.5 / 263.5 Weight 91.8 kg Intake: IV 1871.5 / 1871.5 2324.5 / 2324.5 Heparin/D5W 25,000 U/250 mL 25, 250 / 250 000 unit In 250 ml @ Per Protocol IV.CONT TITRATE PRN Rx #:[id number] Diprivan 1000 mg/100 ml Inj 1, 200 / 200 200 / 200 000 mg In 100 ml @ 5 MCG/KG/MIN 2.449 mls/hr IV.CONT TITRATE PRN Rx#:[id number] NS Inj 1,000 ML @ 84 mls/hr IV. 1000 / 1000 1000 / 1000 CONT .[id number] [facility] Rx#:[id number] Cerebyx Inj 100 MGPE In NS Inj 104 / 104 52 / 52 50 ML @ 208 mls/hr IV.SIG Q8HR [facility] Rx#:[id number] Zosyn 4.5 GM Premix 4.5 gm In 200 / 200 200 / 200 100 ml @ 200 mls/hr IV.SIG Q6H [facility] Rx#:[id number] Vancomycin Inj 1,250 MG In NS 262.5 / 262.5 Inj 250 ML @ 250 mls/hr IV.SIG Q12H [facility] Rx#:[id number] Vancomycin Inj 1,750 MG In NS 517.5 / 517.5 Inj 500 ML @ 250 mls/hr IV.SIG Q12H [facility] Rx#:[id number] Keppra Inj 500 MG In NS Inj 100 105 / 105 105 / 105 ML @ 400 mls/hr IV.SIG Q12H [facility] Rx#:[id number] Tube Feeding 766 / 766 579 / 579 Tube Irrigant 120 / 120 Water Bolus Amount 60 / 60 Output: Urine Amount (Catheter) 1025 / 1025 2700 / 2700 Indwelling Temp Sensing 1025 / 1025 2700 / 2700 Catheter Other: Date of Last Bowel Movement 05/14/18 05/14/18 # Incontinent Bowel Movements 0 Narrative: sedated withdraws feet bilat - Urinary Catheter Management Indwelling Temp Sensing Catheter Cath placed during this visit: yes Reason for continuing: Terminally ill/Comfort care Insertion date: 05/08/18 Insertion time: 22:40 Objective Laboratory Results - last 24 hr 05/14/18 05/14/18 05/14/18 20:25 23:14 23:15 WBC RBC Hgb Hct MCV MCH MCHC RDW Plt Count MPV Neut % (Auto) Lymph % (Auto) Coal % (Auto) Eos % (Auto) Baso % (Auto) Neut # (Auto) Lymph # (Auto) Coal # (Auto) Eos # (Auto) Baso # (Auto) WBC Differential Differential Comment APTT Puncture Site Patient Temperature O2 Saturation ABG pH ABG pCO2 ABG pO2 ABG HCO3 ABG O2 Content ABG Base Excess ABG Methemoglobin Hemoglobin Carboxyhemoglobin O2 Delivery Device Vent Setting Inspired O2 Critical Value Sodium Potassium Chloride Carbon Dioxide Anion Gap BUN Creatinine Estimated GFR POC Glucose 208 H 185 H Random Glucose Calcium Phosphorus 2.2 L Magnesium Ammonia Vancomycin Trough 8.8 Phenytoin Phenobarbital 05/15/18 05/15/18 05/15/18 04:22 04:24 04:24 WBC 11.0 RBC 4.31 L Hgb 12.3 L Hct 37.1 L MCV 86.0 MCH 28.5 MCHC 33.1 RDW 14.7 Plt Count 206 MPV 8.5 Neut % (Auto) 79.2 H Lymph % (Auto) 8.6 L Coal % (Auto) 8.2 H Eos % (Auto) 3.3 Baso % (Auto) 0.7 Neut # (Auto) 8.7 H Lymph # (Auto) 0.9 L Coal # (Auto) 0.9 Eos # (Auto) 0.4 Baso # (Auto) 0.1 WBC Differential . Differential Comment Auto diff final APTT Puncture Site Patient Temperature O2 Saturation ABG pH ABG pCO2 ABG pO2 ABG HCO3 ABG O2 Content ABG Base Excess ABG Methemoglobin Hemoglobin Carboxyhemoglobin O2 Delivery Device Vent Setting Inspired O2 Critical Value Sodium Potassium Chloride Carbon Dioxide Anion Gap BUN Creatinine Estimated GFR POC Glucose 213 H Random Glucose Calcium Phosphorus Magnesium Ammonia 37 H Vancomycin Trough Phenytoin Phenobarbital 05/15/18 05/15/18 05/15/18 04:24 04:24 08:01 WBC RBC Hgb Hct MCV MCH MCHC RDW Plt Count MPV Neut % (Auto) Lymph % (Auto) Coal % (Auto) Eos % (Auto) Baso % (Auto) Neut # (Auto) Lymph # (Auto) Coal # (Auto) Eos # (Auto) Baso # (Auto) WBC Differential Differential Comment APTT 40.1 H Puncture Site Patient Temperature O2 Saturation ABG pH ABG pCO2 ABG pO2 ABG HCO3 ABG O2 Content ABG Base Excess ABG Methemoglobin Hemoglobin Carboxyhemoglobin O2 Delivery Device Vent Setting Inspired O2 Critical Value Sodium 143 Potassium 3.5 Chloride 108 H Carbon Dioxide 26.9 Anion Gap 8 BUN 16 Creatinine 0.67 Estimated GFR Greater than 89 POC Glucose 221 H Random Glucose 235 H Calcium 8.2 L Phosphorus Magnesium 2.1 Ammonia Vancomycin Trough Phenytoin 13.1 Phenobarbital 12.5 L 05/15/18 05/15/18 05/15/18 08:44 11:35 16:29 WBC RBC Hgb Hct MCV MCH MCHC RDW Plt Count MPV Neut % (Auto) Lymph % (Auto) Coal % (Auto) Eos % (Auto) Baso % (Auto) Neut # (Auto) Lymph # (Auto) Coal # (Auto) Eos # (Auto) Baso # (Auto) WBC Differential Differential Comment APTT Puncture Site Art line Patient Temperature 98.6 O2 Saturation 96 ABG pH 7.50 H ABG pCO2 34 L ABG pO2 87 ABG HCO3 27 H ABG O2 Content 17.1 ABG Base Excess 3.5 H ABG Methemoglobin 1.3 Hemoglobin 12.7 Carboxyhemoglobin 0.8 O2 Delivery Device Ventilator Vent Setting Prvc/ac Inspired O2 40 Critical Value No Sodium Potassium Chloride Carbon Dioxide Anion Gap BUN Creatinine Estimated GFR POC Glucose 237 H 138 H Random Glucose Calcium Phosphorus Magnesium Ammonia Vancomycin Trough Phenytoin Phenobarbital Microbiology 05/13/18 11:50 Gram Stain - Final Sputum - Endotracheal Sputum Culture - Final S. 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 fib arrest underlying code cool post-anoxic seizure on eeg MRI brain reviewed. No pontine hemorrhage. No diffusion restriction noted on DWI images. On heparin drip on dilantin/phb, keppra dil 12.4, phb 7.8 Recommendation repeat eeg reviewed. not impressive for any active sz's. rare sharps ok to d/c sedative gtt's more alert, improved neuro this am continue sz meds at current doses; will follow follow sz med levels peripherally follow exam Dr. Shaikh covering over weekend as needed - 05/15/18 acc to nurse followeed commands today will see what does tomorrow off sedatives dc pbarb as eeg may not be as malignant as first thought kepp dil
[2018-05-16] MEDS: Propofol 1000 mg/100 ml Inj 1,000 MG/100 ML BOTTLE IV.CONT PRN ×2 (01:26→05:57)
[2018-05-16] MEDS: Insulin NovoLOG Aspart Correctional Sugar Inj SQ SCH ×6 (03:26→23:40)
[2018-05-16] MEDS: Oral Hygiene Kit OROPHARYNG SCH ×4 (03:26→23:28)
[2018-05-16] MEDS: Piperacil/Tazo 4.5 GM Premix 4.5 GM/100 ML BAG IV.SIG SCH ×4 (04:59→22:22)
[2018-05-16] MEDS: Sod Chloride 0.9% Inj 1,000 ML IV.CONT SCH (04:59)
[2018-05-16] MEDS: Artificial Tears Opth Drops 15 ML Bottle EACH EYE SCH ×3 (04:59→20:06)
[2018-05-16] MEDS: Fosphenytoin Inj 100 MGPE in Sodium Chlor 0.9% Inj 50 ML IV.SIG SCH ×3 (05:00→21:11)
[2018-05-16 05:09] LABS: ABG Base Excess 1.1 mmol/L (-2-2); ABG PCO2 34 mmHg (38-42); ABG PO2 88 mmHG (61-120)
[2018-05-16 06:14] LABS: Baso # (Auto) 0.1 th/mm3 (0.0-0.2); Baso % (Auto) 0.6 % (0.0-2.0); Eos # (Auto) 0.5 th/mm3 (0.0-0.4); Eos % (Auto) 4.2 % (0.0-4.0); Hematocrit 35.7 % (39.0-51.0); Hemoglobin 12.3 gm/dL (13.0-17.0); Lymph % (Auto) 8.9 % (9.0-44.0); Mean Corpuscular HGB Conc 34.4 % (32.0-36.0); Mean Corpuscular Volume 84.1 fL (80.0-100.0); Mean Platelet Volume 9.3 fL (7.0-11.0); Mono # (Auto) 1.1 th/mm3 (0.0-0.9); Mono % (Auto) 10.3 % (0.0-8.0); Neut # (Auto) 8.2 th/mm3 (1.8-7.7); Platelet Count 213 th/mm3 (150-450); Red Blood Count 4.24 mil/mm3 (4.50-5.90); Red Cell Distribution Width 14.8 % (11.6-17.2); White Blood Count 10.8 th/mm3 (4.0-11.0)
[2018-05-16 06:38] LABS: Phenytoin (Dilantin) 12.7 mcg/mL (10.0-20.0); Phosphorus 3.4 mg/dL (2.5-4.9)
[2018-05-16] MEDS: Chlorhexidine 0.12% Oral Kit 15 ML UDC OROPHARYNG SCH ×2 (07:57→20:05)
[2018-05-16] MEDS: Insulin Detemir Inj 1,000 UNIT/10 ML Vial SQ SCH ×2 (08:05→20:05)
[2018-05-16] MEDS: Amiodarone 200 MG Tablet PO SCH (08:05)
[2018-05-16] MEDS: Senna/Docusate Sodium 8.6/50 MG Tablet PO SCH ×2 (08:06→20:06)
[2018-05-16] MEDS: Polyethylene Glycol 3350 17 GM Packet PO SCH ×2 (08:06→20:06)
--- NOTE | 2018-05-16 10:40 | P.PNNEU ---
Subjective Subjective Comments: awakens on slight sedation Active Medications: Active Medications Acetaminophen (Tylenol) 650 mg PO Q6H PRN PRN Reason: PAIN 1-5 AND/OR FEVER >101F Last Admin: 05/14/18 12:08 Dose: 650 mg Al Hydroxide/Mg Hydroxide (Milk Of Christy Liq) 30 ml PO Q12H PRN PRN Reason: Mild Constipation Albuterol (Albuterol Neb (Prn)) 2.5 mg NEB Q2HR NEB PRN PRN Reason: DYSPNEA Albuterol (Duoneb Neb ([facility])) 1 ampul NEB Q4HR NEB [facility] Last Admin: 05/16/18 07:33 Dose: 1 ampul Amiodarone HCl (Cordarone) 400 mg PO DAILY [facility] Last Admin: 05/16/18 08:05 Dose: 400 mg Artificial Tears (Tears Naturale Opth Drops) 1 drop EACH EYE Q8H [facility] Last Admin: 05/16/18 04:59 Dose: 1 drop Aspirin (Aspirin Chew) 81 mg PO DAILY [facility] Last Admin: 05/16/18 08:05 Dose: 81 mg Atorvastatin Calcium (Lipitor) 10 mg PO HS [facility] Last Admin: 05/15/18 20:30 Dose: 10 mg Bisacodyl (Dulcolax Supp) 10 mg RECTAL DAILY PRN PRN Reason: SEVERE CONSITIPATION Carvedilol (Coreg) 3.125 mg PO BID [facility] Last Admin: 05/13/18 08:01 Dose: Not Given Chlorhexidine Gluconate (Peridex 0.12% Oral Kit) 15 ml OROPHARYNG BID@0800, 2000 [facility] Last Admin: 05/16/18 07:57 Dose: 15 ml Dextrose (D50w Vial) 50 ml IV.PUSH UNSCH PRN PRN Reason: PER HYPOGLYCEMIA PROTOCOL Enalapril Maleate (Vasotec) 2.5 mg PO DAILY [facility] Last Admin: 05/16/18 08:05 Dose: 2.5 mg Furosemide (Lasix Inj) 40 mg IV.PUSH DAILY [facility] Last Admin: 05/16/18 08:05 Dose: 40 mg Glucagon (Glucagon Inj) 1 mg OTHER PRN PRN PRN Reason: for Hypoglycemia Protocol Hydralazine HCl (Apresoline Inj) 10 mg IV.PUSH Q1H PRN PRN Reason: Sbp>140, Dbp>90 Last Admin: 05/10/18 08:00 Dose: 10 mg Sodium Chloride (Ns Inj) 1,000 mls @ 50 mls/hr IV.CONT .Q20H [facility] Last Admin: 05/16/18 04:59 Dose: 50 mls/hr Propofol (Diprivan 1000 Mg/100 Ml Inj) 1,000 mg in 100 mls @ 2.449 mls/hr IV.CONT TITRATE PRN; Protocol PRN Reason: Per Protocol Last Titration: 05/16/18 06:30 Dose: 35 mcg/kg/min, 17.15 mls/hr Fentanyl (Fentanyl 10 Mcg/Ml Premix Drip) 2,500 mcg in 250 mls @ 5 mls/hr IV.SIG TITRATE PRN; Protocol PRN Reason: Per Protocol Last Titration: 05/14/18 19:00 Dose: 0 mcg/hr, 0 mls/hr Norepinephrine Bitartrate 16 (mg/ Sodium Chloride) 250 mls @ 1.87 mls/hr IV.CONT TITRATE PRN; Protocol PRN Reason: See Protocol Last Titration: 05/13/18 11:00 Dose: 0 mcg/min, 0 mls/hr Heparin Sodium/Dextrose (Heparin/D5w 25,000 U/250 Ml) 25,000 unit in 250 mls @ 0 mls/hr IV.CONT TITRATE PRN; Protocol PRN Reason: Per Protocol Last Titration: 05/16/18 06:19 Dose: 1,000 units/hr, 10 mls/hr Piperacillin/Tazobactam/Dextrose (Zosyn 4.5 Gm Premix) 4.5 gm in 100 mls @ 200 mls/hr IV.SIG Q6H [facility] Last Infusion: 05/16/18 05:26 Dose: Infused Midazolam HCl (Versed Inj) 100 mg in 100 mls @ 2 mls/hr IV.CONT TITRATE PRN; Protocol PRN Reason: Per Protocol Last Titration: 05/14/18 19:00 Dose: 0 mg/hr, 0 mls/hr Magnesium Sulfate 4 gm/ Sodium (Chloride) 100 mls @ 50 mls/hr IV.SIG UNSCH PRN PRN Reason: For Magnesium 0.9 - 1.1 mg/dL Magnesium Sulfate 2 gm/ Sodium (Chloride) 100 mls @ 50 mls/hr IV.SIG UNSCH PRN PRN Reason: For Magnesium 1.2 - 1.6 mg/dL Potassium Chloride (Kcl 40 Meq Premix Inj) 40 meq in 100 mls @ 25 mls/hr IV.SIG Q2H PRN PRN Reason: For Potassium 2.8 - 3.2 mEq/L Last Infusion: 05/12/18 14:09 Dose: Infused Potassium Chloride (Kcl 20 Meq Premix Inj) 20 meq in 100 mls @ 50 mls/hr IV.SIG Q2H PRN PRN Reason: For Potassium 3.3 - 3.5 mEq/L Potassium Chloride (Kcl 40 Meq Premix Inj) 40 meq in 100 mls @ 25 mls/hr IV.SIG UNSCH PRN PRN Reason: For Potassium 3.3 - 3.5 mEq/L Potassium Chloride (Kcl 20 Meq Premix Inj) 20 meq in 100 mls @ 50 mls/hr IV.SIG Q2H PRN PRN Reason: For Potassium 2.8 - 3.2 mEq/L Potassium Phosphate 30 mmol/ (Sodium Chloride) 260 mls @ 42 mls/hr IV.SIG UNSCH PRN PRN Reason: SEE LABEL COMMENTS Sodium Phosphate 30 mmol/ (Sodium Chloride) 260 mls @ 42 mls/hr IV.SIG UNSCH PRN PRN Reason: For Phosphorus < 2.5 mg/dL Levetiracetam 500 mg/ Sodium (Chloride) 105 mls @ 400 mls/hr IV.SIG Q12H [facility] Last Infusion: 05/15/18 22:55 Dose: Infused Fosphenytoin Sodium 100 mgpe/ (Sodium Chloride) 52 mls @ 208 mls/hr IV.SIG Q8HR [facility] Last Infusion: 05/16/18 05:27 Dose: Infused Vancomycin HCl 1,750 mg/ (Sodium Chloride) 517.5 mls @ 250 mls/hr IV.SIG Q12H [facility] Last Infusion: 05/16/18 01:18 Dose: Infused Dexmedetomidine HCl 200 mcg/ (Sodium Chloride) 50 mls @ 4.05 mls/hr IV.CONT TITRATE PRN; Protocol PRN Reason: Per Protocol Insulin Aspart (Novolog Insulin Correctional Sugar Inj) 0 unit SQ Q4HR JIM; Protocol Last Admin: 05/16/18 07:57 Dose: 4 unit Insulin Detemir (Levemir Inj) 4 unit SQ BID [facility] Last Admin: 05/16/18 08:05 Dose: 4 unit Labetalol HCl (Trandate Inj) 10 mg IV.PUSH Q1H PRN PRN Reason: Sbp>140, Dbp>90, Hr>65 Last Admin: 05/10/18 14:30 Dose: 10 mg Lactulose (Lactulose Liq) 30 ml PO DAILY PRN PRN Reason: SEVERE CONSITIPATION Lactulose (Lactulose Liq) 30 ml PO BID [facility] Last Admin: 05/16/18 08:05 Dose: 30 ml Lorazepam (Ativan Inj) 1 mg IV.PUSH Q1H PRN PRN Reason: SEE LABEL COMMENTS Lorazepam (Ativan Inj) 2 mg IV.PUSH Q1H PRN PRN Reason: SEIZURE ACTIVITY Magnesium Oxide (Mag-Ox) 800 mg PO UNSCH PRN PRN Reason: For Magnesium 1.2 - 1.6 mg/dL Midazolam HCl (Versed Inj) 2 mg IV.PUSH Q1H PRN PRN Reason: SEE LABEL COMMENTS Last Admin: 05/10/18 14:30 Dose: 2 mg Miscellaneous Information ([facility] [place]dered Lab Info) 0 each OTHER ONCE ONE Stop: 05/16/18 10:46 Miscellaneous Medication () 1 each OROPHARYNG 0000,0400,1200,1600 [facility] Last Admin: 05/16/18 03:26 Dose: 1 each Morphine Sulfate (Morphine Inj) 2 mg IV.PUSH Q2H PRN PRN Reason: PAIN SCALE 6 TO 10 Ondansetron HCl (Zofran Inj) 4 mg IV.PUSH Q6H PRN PRN Reason: NAUSEA OR VOMITING Pantoprazole Sodium (Protonix Inj) 40 mg IV.PUSH Q24H [facility] Last Admin: 05/15/18 12:00 Dose: 40 mg Pharmacy Profile Note (Vancomycin Consult Pharmacy) 1 each OTHER UNSCH PRN PRN Reason: Pharmacy to dose Polyethylene Glycol (Miralax) 17 gm PO BID [facility] Last Admin: 05/16/18 08:06 Dose: 17 gm Potassium Bicarb/Potassium Chloride (K-Lyte Cl Eff) 50 meq PO UNSCH PRN PRN Reason: For Potassium 3.3 - 3.5 mEq/L Potassium Phosphate (K-Phos Original) 2,000 mg PO Q4H PRN PRN Reason: Phosphorus Less Than 2.5 mg/dL Last Admin: 05/13/18 09:56 Dose: 2,000 mg Potassium Phosphate (K-Phos Original) 2,000 mg PO UNSCH PRN PRN Reason: SEE LABEL COMMENTS Last Admin: 05/15/18 11:54 Dose: 2,000 mg Senna/Docusate Sodium (Lizbeth-Colace) 1 tab PO BID [facility] Last Admin: 05/16/18 08:06 Dose: Not Given Sennosides (Senokot) 17.2 mg PO Q12H PRN PRN Reason: Moderate Constipation Sodium Chloride (Ns Flush) 2 ml IV.FLUSH BID [facility] Last Admin: 05/16/18 08:06 Dose: 2 ml Sodium Chloride (Ns Flush) 2 ml IV.FLUSH PRN PRN PRN Reason: FLUSH AFTER USING IV ACCESS Sodium Chloride (Ns Flush) 0 ml IV.FLUSH DAILY [facility] Last Admin: 05/16/18 08:06 Dose: 6 ml Terbutaline Sulfate (Brethine Inj) 1 mg SQ UNSCH PRN PRN Reason: For Extravasation Allergies/Adverse Reactions: Allergies Allergy/AdvReac Type Severity Reaction Status Date / Time No Known Allergies Allergy Uncoded 02/17/15 12:05 Physical Exam Vital signs: Vital Signs 05/15/18 10:46 05/15/18 12:00 05/15/18 13:00 Temperature 100.0 F H 100.2 F H Pulse Rate 82 80 82 Respiratory Rate 20 Blood Pressure 131/66 138/64 Pulse Oximetry 96 97 96 05/15/18 14:00 05/15/18 15:00 05/15/18 15:30 Temperature 100.2 F H 100.2 F H Pulse Rate 80 79 80 Respiratory Rate 21 Blood Pressure 128/63 138/65 Pulse Oximetry 96 97 97 05/15/18 16:00 05/15/18 17:00 05/15/18 18:00 Temperature 100.2 F H 100.2 F H 100.2 F H Pulse Rate 81 81 82 Respiratory Rate Blood Pressure 130/60 128/62 136/68 Pulse Oximetry 96 96 97 05/15/18 20:00 05/15/18 20:02 05/16/18 00:00 Temperature 100.2 F H 99.9 F H Pulse Rate 82 84 83 Respiratory Rate 14 19 Blood Pressure 135/67 133/71 Pulse Oximetry 97 97 05/16/18 00:27 05/16/18 00:28 05/16/18 03:25 Temperature Pulse Rate 85 82 Respiratory Rate 20 20 19 Blood Pressure Pulse Oximetry 97 99 05/16/18 04:00 05/16/18 07:00 05/16/18 07:33 Temperature 99.5 F 99.3 F Pulse Rate 88 86 86 Respiratory Rate 23 Blood Pressure 131/66 131/64 Pulse Oximetry 99 95 95 05/16/18 08:00 05/16/18 09:00 Temperature 99.5 F 99.9 F H Pulse Rate 87 93 H Respiratory Rate Blood Pressure 127/67 135/69 Pulse Oximetry 95 92 L Intake & Output 05/15/18 05/16/18 05/16/18 18:59 06:59 18:59 Intake Total 2963.5 / 2963.5 2843.5 / 2843.5 Output Total 2700 / 2700 1400 / 1400 Balance 263.5 / 263.5 1443.5 / 1443.5 Weight 81 kg Intake: IV 2324.5 / 2324.5 2126.5 / 2126.5 Heparin/D5W 25,000 U/250 mL 25, 250 / 250 000 unit In 250 ml @ Per Protocol IV.CONT TITRATE PRN Rx #:[id number] Diprivan 1000 mg/100 ml Inj 1, 200 / 200 200 / 200 000 mg In 100 ml @ 5 MCG/KG/MIN 2.449 mls/hr IV.CONT TITRATE PRN Rx#:[id number] NS Inj 1,000 ML @ 50 mls/hr IV. 1000 / 1000 1000 / 1000 CONT .Q20H [facility] Rx#:[id number] Cerebyx Inj 100 MGPE In NS Inj 52 / 52 104 / 104 50 ML @ 208 mls/hr IV.SIG Q8HR [facility] Rx#:[id number] Zosyn 4.5 GM Premix 4.5 gm In 200 / 200 200 / 200 100 ml @ 200 mls/hr IV.SIG Q6H [facility] Rx#:[id number] Vancomycin Inj 1,750 MG In NS 517.5 / 517.5 517.5 / 517.5 Inj 500 ML @ 250 mls/hr IV.SIG Q12H [facility] Rx#:[id number] Keppra Inj 500 MG In NS Inj 100 105 / 105 105 / 105 ML @ 400 mls/hr IV.SIG Q12H [facility] Rx#:[id number] Tube Feeding 579 / 579 617 / 617 Water Bolus Amount 60 / 60 100 / 100 Output: Urine Amount (Catheter) 2700 / 2700 1400 / 1400 Indwelling Temp Sensing 2700 / 2700 1400 / 1400 Catheter Other: Date of Last Bowel Movement 05/14/18 05/14/18 05/14/18 # Bowel Movements 0 Narrative: wiggle bilat feet for me well awakens on mils sedation - Urinary Catheter Management Indwelling Temp Sensing Catheter Cath placed during this visit: yes Reason for continuing: Terminally ill/Comfort care Insertion date: 05/08/18 Insertion time: 22:40 Objective Laboratory Results - last 24 hr 05/15/18 05/15/18 05/15/18 11:35 16:29 20:20 WBC RBC Hgb Hct MCV MCH MCHC RDW Plt Count MPV Neut % (Auto) Lymph % (Auto) Rabun % (Auto) Eos % (Auto) Baso % (Auto) Neut # (Auto) Lymph # (Auto) Rabun # (Auto) Eos # (Auto) Baso # (Auto) WBC Differential Differential Comment APTT Puncture Site Patient Temperature O2 Saturation ABG pH ABG pCO2 ABG pO2 ABG HCO3 ABG O2 Content ABG Base Excess ABG Methemoglobin David Test Hemoglobin Carboxyhemoglobin O2 Delivery Device Vent Setting Inspired O2 Critical Value Sodium Potassium Chloride Carbon Dioxide Anion Gap BUN Creatinine Estimated GFR POC Glucose 237 H 138 H 250 H Random Glucose Calcium Phosphorus Magnesium Ammonia Phenytoin Phenobarbital 05/15/18 05/16/18 05/16/18 23:36 03:22 05:00 WBC RBC Hgb Hct MCV MCH MCHC RDW Plt Count MPV Neut % (Auto) Lymph % (Auto) Rabun % (Auto) Eos % (Auto) Baso % (Auto) Neut # (Auto) Lymph # (Auto) Rabun # (Auto) Eos # (Auto) Baso # (Auto) WBC Differential Differential Comment APTT Puncture Site Art line Patient Temperature 98.6 O2 Saturation 95 ABG pH 7.47 H ABG pCO2 34 L ABG pO2 88 ABG HCO3 24 ABG O2 Content 16.5 ABG Base Excess 1.1 ABG Methemoglobin 1.4 David Test Present Hemoglobin 12.3 Carboxyhemoglobin 0.7 O2 Delivery Device Ventilator Vent Setting Prvc/ ac Inspired O2 40 Critical Value No Sodium Potassium Chloride Carbon Dioxide Anion Gap BUN Creatinine Estimated GFR POC Glucose 243 H 184 H Random Glucose Calcium Phosphorus Magnesium Ammonia Phenytoin Phenobarbital 05/16/18 05/16/18 05/16/18 05:45 05:45 05:45 WBC 10.8 RBC 4.24 L Hgb 12.3 L Hct 35.7 L MCV 84.1 MCH 29.0 MCHC 34.4 RDW 14.8 Plt Count 213 MPV 9.3 Neut % (Auto) 76.0 H Lymph % (Auto) 8.9 L Rabun % (Auto) 10.3 H Eos % (Auto) 4.2 H Baso % (Auto) 0.6 Neut # (Auto) 8.2 H Lymph # (Auto) 1.0 Rabun # (Auto) 1.1 H Eos # (Auto) 0.5 H Baso # (Auto) 0.1 WBC Differential . Differential Comment Auto diff final APTT 36.3 H Puncture Site Patient Temperature O2 Saturation ABG pH ABG pCO2 ABG pO2 ABG HCO3 ABG O2 Content ABG Base Excess ABG Methemoglobin David Test Hemoglobin Carboxyhemoglobin O2 Delivery Device Vent Setting Inspired O2 Critical Value Sodium Potassium Chloride Carbon Dioxide Anion Gap BUN Creatinine Estimated GFR POC Glucose Random Glucose Calcium Phosphorus 3.4 D Magnesium 2.0 Ammonia Phenytoin 12.7 Phenobarbital 12.0 L 05/16/18 05/16/18 05/16/18 05:45 05:45 07:55 WBC RBC Hgb Hct MCV MCH MCHC RDW Plt Count MPV Neut % (Auto) Lymph % (Auto) Rabun % (Auto) Eos % (Auto) Baso % (Auto) Neut # (Auto) Lymph # (Auto) Rabun # (Auto) Eos # (Auto) Baso # (Auto) WBC Differential Differential Comment APTT Puncture Site Patient Temperature O2 Saturation ABG pH ABG pCO2 ABG pO2 ABG HCO3 ABG O2 Content ABG Base Excess ABG Methemoglobin David Test Hemoglobin Carboxyhemoglobin O2 Delivery Device Vent Setting Inspired O2 Critical Value Sodium Cancelled Potassium Cancelled Chloride Cancelled Carbon Dioxide Cancelled Anion Gap Cancelled BUN Cancelled Creatinine Cancelled Estimated GFR Cancelled POC Glucose 231 H Random Glucose Cancelled Calcium Cancelled Phosphorus Magnesium Ammonia 36 H Phenytoin Phenobarbital Microbiology 05/13/18 11:50 Gram Stain - Final Sputum - Endotracheal Sputum Culture - Final S. 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 fib arrest underlying code cool post-anoxic seizure on eeg MRI brain reviewed. No pontine hemorrhage. No diffusion restriction noted on DWI images. On heparin drip on dilantin/phb, keppra dil 12.4, phb 7.8 Recommendation repeat eeg reviewed. not impressive for any active sz's. rare sharps ok to d/c sedative gtt's more alert, improved neuro this am continue sz meds at current doses; will follow follow sz med levels peripherally follow exam Dr. Shaikh covering over weekend as needed - 05/15/18 acc to nurse followeed commands today will see what does tomorrow off sedatives dc pbarb as eeg may not be as malignant as first thought keppra dil 05/16/18 much better following commands and should do well neuro coe dil=[address] Connor to fu saturday
[2018-05-16] MEDS ORDERED: Pharmacy Ordered Lab Info OTHER ONE (10:45)
--- NOTE | 2018-05-16 10:47 | P.PNCC ---
Subjective Subjective Remarks/Hospital Course: 63-year-old male presents to emergency department intubated after VF/VT arrest. He had to be defibrillated twice in the field, afterwards clear STEMI criteria was called by [facility]. Apparently heard a collapse in the next room found the patient unresponsive called 9 1. Apparently total downtime was about 10 minutes and had a very quick Rask. Blood pressure was little low and dopamine drip was started in the field. Patient also had amiodarone started in the field. Initially the STEMI alert was called brain demonstrated punctate hyperdensity characteristic of hemorrhage in the right mid araseli in the STEMI alert was canceled. The patient has been admitted to ICU for hypothermia protocol treatment post cardiac arrest. 05/09: Discussed with at bedside. Currently on target temperature monitoring. EEG performed. Replacing potassium and phosphorus this a.m. 05/10: Currently temperature is a 97. Has been rewarmed from target temperature monitoring. EEG revealed no epileptic activity. Replace potassium currently. MRI brain revealed no signs of hemorrhage. Will start on heparin drip IA protocol 900 units an hour and provide aspirin. Carvedilol started by cardiology during the a.m. 05/11: Phosphorus being replaced. Weaning off sedation currently. Rewarmed to 37 C. No problem. Tolerating tube feeds currently at 30 cc now. Subjective: 05/12: Currently resting in bed. New central has been placed and targeted temperature monitoring Quatro catheter has been removed. Seizures overnight. Currently on fosphenytoin and levetiracetam. Remains on midazolam drip. Updated at bedside. 05/13: Low-grade temperature during the night continues greater than 99.0., Noted blood cultures negative growth to date. Remains encephalopathic .EEG revealed continued epileptiform activity. Patient noted phenobarbital level this a.m. subtherapeutic at 3.1. Noted persistent leukocytosis, bilateral pulmonary opacities, sputum culture pending. Palliative care has been consulted. 05/14: Sedative discontinued early this a.m.. Noted spontaneous eye opening with neurologist Dr. Connor at the bedside, not following any commands. EEG revealed a few spikes, patient continues on anticonvulsant regimen and seizure precautions. Noted hypertension systolic blood pressure greater than 170 Vasotec reinitiated. discussed findings with Dr. Connor at bedside we will continue to monitor discontinue all sedatives and continually evaluate neurological status. Plan this afternoon to meet with patient's Mrs. Siddiqui and palliative care. 05/15: Off all sedation noted spontaneous movement but not following any commands with excessive yawning and grimacing noted. Patient placed back on propofol low-dose infusion. Palliative care conference with patient's reveal patient to be placed in a no CPR CODE STATUS at this time. Discussion with Dr. Connor, neurology yesterday we will continue to monitor and evaluate optimizing care and continued evaluation at this time. No change in respiratory requirements however chest x-ray noted bilateral pleural effusions IV infusions decreased patient now normotensive carvedilol reinitiated. 05/16: Afebrile. Per RN yesterday the patient followed commands with left upper extremity. Upon my evaluation paid patient noted to be off sedation spontaneous eye opening and tracking. Excessive yawning and grimacing also noted. Propofol has been discontinued Precedex to maintain ventilator synchrony if required. Patient continues on heparin infusion. Leukocytosis has been resolved. Review of EEG per neurology only a few sharp spikes phenobarbital has been discontinued. Objective Vital Signs / I&O: Vital Signs 05/15/18 10:46 05/15/18 12:00 05/15/18 13:00 Temperature 100.0 F H 100.2 F H Pulse Rate 82 80 82 Respiratory Rate 20 Blood Pressure 131/66 138/64 Pulse Oximetry 96 97 96 05/15/18 14:00 05/15/18 15:00 05/15/18 15:30 Temperature 100.2 F H 100.2 F H Pulse Rate 80 79 80 Respiratory Rate 21 Blood Pressure 128/63 138/65 Pulse Oximetry 96 97 97 05/15/18 16:00 05/15/18 17:00 05/15/18 18:00 Temperature 100.2 F H 100.2 F H 100.2 F H Pulse Rate 81 81 82 Respiratory Rate Blood Pressure 130/60 128/62 136/68 Pulse Oximetry 96 96 97 05/15/18 20:00 05/15/18 20:02 05/16/18 00:00 Temperature 100.2 F H 99.9 F H Pulse Rate 82 84 83 Respiratory Rate 14 19 Blood Pressure 135/67 133/71 Pulse Oximetry 97 97 05/16/18 00:27 05/16/18 00:28 05/16/18 03:25 Temperature Pulse Rate 85 82 Respiratory Rate 20 20 19 Blood Pressure Pulse Oximetry 97 99 05/16/18 04:00 05/16/18 07:00 05/16/18 07:33 Temperature 99.5 F 99.3 F Pulse Rate 88 86 86 Respiratory Rate 23 Blood Pressure 131/66 131/64 Pulse Oximetry 99 95 95 05/16/18 08:00 05/16/18 09:00 Temperature 99.5 F 99.9 F H Pulse Rate 87 93 H Respiratory Rate Blood Pressure 127/67 135/69 Pulse Oximetry 95 92 L Intake & Output 05/15/18 05/16/18 05/16/18 18:59 06:59 18:59 Intake Total 2963.5 / 2963.5 2843.5 / 2843.5 Output Total 2700 / 2700 1400 / 1400 Balance 263.5 / 263.5 1443.5 / 1443.5 Weight 81 kg Intake: IV 2324.5 / 2324.5 2126.5 / 2126.5 Heparin/D5W 25,000 U/250 mL 25, 250 / 250 000 unit In 250 ml @ Per Protocol IV.CONT TITRATE PRN Rx #:[id number] Diprivan 1000 mg/100 ml Inj 1, 200 / 200 200 / 200 000 mg In 100 ml @ 5 MCG/KG/MIN 2.449 mls/hr IV.CONT TITRATE PRN Rx#:[id number] NS Inj 1,000 ML @ 50 mls/hr IV. 1000 / 1000 1000 / 1000 CONT .Q20H JIM Rx#:[id number] Cerebyx Inj 100 MGPE In NS Inj 52 / 52 104 / 104 50 ML @ 208 mls/hr IV.SIG Q8HR JIM Rx#:[id number] Zosyn 4.5 GM Premix 4.5 gm In 200 / 200 200 / 200 100 ml @ 200 mls/hr IV.SIG Q6H JIM Rx#:[id number] Vancomycin Inj 1,750 MG In NS 517.5 / 517.5 517.5 / 517.5 Inj 500 ML @ 250 mls/hr IV.SIG Q12H JIM Rx#:[id number] Keppra Inj 500 MG In NS Inj 100 105 / 105 105 / 105 ML @ 400 mls/hr IV.SIG Q12H JIM Rx#:[id number] Tube Feeding 579 / 579 617 / 617 Water Bolus Amount 60 / 60 100 / 100 Output: Urine Amount (Catheter) 2700 / 2700 1400 / 1400 Indwelling Temp Sensing 2700 / 2700 1400 / 1400 Catheter Other: Date of Last Bowel Movement 05/14/18 05/14/18 05/14/18 # Bowel Movements 0 Result Diagrams: 05/16/18 05:45 05/15/18 04:24 Other Results: Laboratory Results WBC 10.8 th/mm3 (4.0-11.0) 05/16/18 05:45 RBC 4.24 mil/mm3 (4.50-5.90) L 05/16/18 05:45 Hgb 12.3 gm/dL (13.0-17.0) L 05/16/18 05:45 POC Hgb (Calc) 15.6 g/dL (13.0-17.0) 05/08/18 20:45 Hct 35.7 % (39.0-51.0) L 05/16/18 05:45 POC Hct 46.0 % (39-51.0) 05/08/18 20:45 MCV 84.1 fL (80.0-100.0) 05/16/18 05:45 MCH 29.0 pg (27.0-34.0) 05/16/18 05:45 MCHC 34.4 % (32.0-36.0) 05/16/18 05:45 RDW 14.8 % (11.6-17.2) 05/16/18 05:45 Plt Count 213 th/mm3 (150-450) 05/16/18 05:45 MPV 9.3 fL (7.0-11.0) 05/16/18 05:45 Prelim Diff (Auto) Slide review pending 05/08/18 20:45 Neut % (Auto) 76.0 % (16.0-70.0) H 05/16/18 05:45 Lymph % (Auto) 8.9 % (9.0-44.0) L 05/16/18 05:45 [place] % (Auto) 10.3 % (0.0-8.0) H 05/16/18 05:45 Eos % (Auto) 4.2 % (0.0-4.0) H 05/16/18 05:45 Baso % (Auto) 0.6 % (0.0-2.0) 05/16/18 05:45 Neut # (Auto) 8.2 th/mm3 (1.8-7.7) H 05/16/18 05:45 Lymph # (Auto) 1.0 th/mm3 (1.0-4.8) 05/16/18 05:45 [place] # (Auto) 1.1 th/mm3 (0.0-0.9) H 05/16/18 05:45 Eos # (Auto) 0.5 th/mm3 (0.0-0.4) H 05/16/18 05:45 Baso # (Auto) 0.1 th/mm3 (0.0-0.2) 05/16/18 05:45 WBC Differential . 05/16/18 05:45 Seg Neuts % (Manual) 63 % (16-70) 05/08/18 20:45 Lymphocytes % (Manual) 21 % (9-44) 05/08/18 20:45 Monocytes % (Manual) 7 % (0-8) 05/08/18 20:45 Eosinophils % (Manual) 9 % (0-4) H 05/08/18 20:45 Abs Neuts (Manual) 8.6 th/mm3 (1.8-7.7) H 05/08/18 20:45 Differential Comment Auto diff final 05/16/18 05:45 Platelet Estimate Normal (Normal) 05/08/18 20:45 Platelet Morphology Normal (Normal) 05/08/18 20:45 RBC Morphology Normal (Normal) 05/08/18 20:45 PT 11.6 sec (9.8-11.6) 05/10/18 16:10 INR 1.1 Ratio 05/10/18 16:10 APTT 36.3 sec (23.4-31.7) H 05/16/18 05:45 Puncture Site Art line 05/16/18 05:00 Patient Temperature 98.6 05/16/18 05:00 O2 Saturation 95 % (90-100) 05/16/18 05:00 ABG pH 7.47 (7.380-7.420) H 05/16/18 05:00 ABG pCO2 34 mmHg (38-42) L 05/16/18 05:00 ABG pO2 88 mmHG (61-120) 05/16/18 05:00 ABG HCO3 24 mmol/L (22-26) 05/16/18 05:00 ABG O2 Content 16.5 Vol % (12.0-20.0) 05/16/18 05:00 ABG Base Excess 1.1 mmol/L (-2-2) 05/16/18 05:00 ABG Methemoglobin 1.4 % (0-2) 05/16/18 05:00 David Test Present 05/16/18 05:00 Hemoglobin 12.3 G/DL (12.0-16.0) 05/16/18 05:00 Carboxyhemoglobin 0.7 % (0-4) 05/16/18 05:00 O2 Delivery Device Ventilator 05/16/18 05:00 Vent Setting Prvc/ ac 05/16/18 05:00 Inspired O2 40 % 05/16/18 05:00 Critical Value No 05/16/18 05:00 POC Sodium 137 mmol/L (137-144) 05/08/18 20:45 Sodium 143 meq/L (136-145) 05/15/18 04:24 POC Potassium 3.2 mmol/L (3.6-5.0) L 05/08/18 20:45 Potassium 3.5 meq/L (3.5-5.1) 05/15/18 04:24 POC Chloride 96 mmol/L (102-111) L 05/08/18 20:45 Chloride 108 meq/L (98-107) H 05/15/18 04:24 Carbon Dioxide 26.9 meq/L (21.0-32.0) 05/15/18 04:24 Anion Gap 8 meq/L (5-15) 05/15/18 04:24 POC BUN 6 mg/dL (5-21) 05/08/18 20:45 BUN 16 mg/dL (7-18) 05/15/18 04:24 Creatinine 0.67 mg/dL (0.60-1.30) 05/15/18 04:24 POC Creatinine 1.0 mg/dL (0.6-1.3) 05/08/18 20:45 Estimated GFR Greater than 89 mL/min (>89) 05/15/18 04:24 POC Glucose 231 mg/dl (68-110) H 05/16/18 07:55 Random Glucose 235 mg/dL (74-106) H 05/15/18 04:24 Hemoglobin A1c 6.5 % (4.3-6.0) H 05/09/18 14:58 Lactic Acid 2.4 mmol/L (0.4-2.0) H 05/09/18 17:45 Calcium 8.2 mg/dL (8.5-10.1) L 05/15/18 04:24 Phosphorus 3.4 mg/dL (2.5-4.9) D 05/16/18 05:45 Magnesium 2.0 mg/dL (1.5-2.5) 05/16/18 05:45 Total Bilirubin 0.4 mg/dL (0.2-1.0) 05/13/18 04:25 Direct Bilirubin 0.3 mg/dL (0.0-0.2) H 05/09/18 01:10 Indirect Bilirubin 0.8 mg/dL (0.0-0.8) 05/09/18 01:10 AST 67 U/L (15-37) H 05/13/18 04:25 ALT 51 U/L (12-78) 05/13/18 04:25 Alkaline Phosphatase 85 U/L (45-117) 05/13/18 04:25 Ammonia 36 mcmol/L (11-32) H 05/16/18 05:45 Total Creatine Kinase 721 U/L (39-308) H 05/12/18 04:45 CK-MB (CK-2) 27.5 ng/mL (0.5-3.6) H 05/12/18 04:45 CK-MB (CK-2) % 3.8 % (0.0-4.0) 05/12/18 04:45 Troponin I 12.50 ng/mL (0.02-0.05) H* 05/14/18 04:05 Total Protein 5.5 g/dL (6.4-8.2) L 05/13/18 04:25 Albumin 2.0 g/dL (3.4-5.0) L 05/13/18 04:25 Triglycerides 89 mg/dL (42-150) 05/09/18 14:58 Cholesterol 129 mg/dL (120-200) 05/09/18 14:58 LDL Cholesterol, Calc 61 mg/dL (0-99) 05/09/18 14:58 HDL Cholesterol 50.7 mg/dL (40.0-60.0) 05/09/18 14:58 Cholesterol/HDL Ratio 2.54 Ratio 05/09/18 14:58 TSH 0.285 uIU/mL (0.358-3.740) L 05/10/18 00:30 Free T4 1.08 ng/dL (0.76-1.46) 05/10/18 15:55 Total T3 70 ng/dL (60-181) 05/10/18 22:15 Cortisol 23.8 mcg/dL 05/13/18 09:20 Urine Color Straw (Yellw/Straw) 05/08/18 22:30 Urine Clarity Clear (Clear) 05/08/18 22:30 Urine pH 6.0 (5.0-8.5) 05/08/18 22:30 Ur Specific [place] 1.005 (1.002-1.035) 05/08/18 22:30 Urine Protein 30 mg/dL (Neg-Trace) H 05/08/18 22:30 Urine Glucose (UA) 500 or greater mg/dL (Negative) 05/08/18 22:30 Urine Ketones Trace mg/dL (Negative) H 05/08/18 22:30 Urine Occult Blood Moderate (Negative) H 05/08/18 22:30 Urine Nitrate Negative (Negative) 05/08/18 22:30 Urine Bilirubin Negative (Negative) 05/08/18 22:30 Urine Urobilinogen Less than 2 mg/dL (Less than 2) 05/08/18 22:30 Ur Leukocyte Esterase Negative (Negative) 05/08/18 22:30 Urine RBC 5 /hpf (0-3) H 05/08/18 22:30 Urine WBC 6 /hpf (0-5) H 05/08/18 22:30 Ur Squamous Epith Cells <1 /hpf (0-5) 05/08/18 22:30 Urine Bacteria Occasional /hpf (None) H 05/08/18 22:30 Micro UA Comment Cath-culture ind 05/08/18 22:30 Ur Microscopic Review Not Reportable 05/08/18 22:30 Urine Culture Comments Cath-cult indicated 05/08/18 22:30 Nasal Screen MRSA (PCR) [place] detected (Negative) 05/08/18 22:30 Vancomycin Trough 8.8 mcg/mL (5.0-10.0) 05/14/18 23:15 Urine Opiates Screen Pos (Neg) H 05/09/18 10:55 Ur Barbiturates Screen Neg (Neg) 05/09/18 10:55 Phenytoin 12.7 mcg/mL (10.0-20.0) 05/16/18 05:45 Ur Amphetamines Screen Neg (Neg) 05/09/18 10:55 Phenobarbital 12.0 mcg/mL (15.0-40.0) L 05/16/18 05:45 U Benzodiazepines Scrn Pos (Neg) H 05/09/18 10:55 Urine Cocaine Screen Neg (Neg) 05/09/18 10:55 U Cannabinoids Screen Neg (Neg) 05/09/18 10:55 Hepatitis A IgM Ab Nonreactive (Nonreactive) 05/09/18 14:58 Hep Bs Antigen Nonreactive (Nonreactive) 05/09/18 14:58 Hep B Core IgM Ab Nonreactive (Nonreactive) 05/09/18 14:58 Hep C IgG Ab Nonreactive (Nonreactive) 05/09/18 14:58 Blood Type O Positive 05/09/18 01:10 Blood Type Recheck Required 05/09/18 01:10 Antibody Screen Negative 05/09/18 01:[address] 05/08/18 20:43 CONCLUSION: 1. Punctate hyperdensity characteristic of hemorrhage in the right mid araseli. 2. No acute findings in the supratentorial brain. . Cervical Spine CT 05/08/18 20:44 CONCLUSION: 1. Moderate degenerative changes at C6-7. 2. Otherwise negative exam. Head MRI 05/10/18 00:00 CONCLUSION: 1. No evidence of acute hemorrhage within the right araseli. 2. No acute infarct, acute hemorrhage, midline shift or extra-axial fluid collection. 3. Mucosal thickening involving the left maxillary sinus, bilateral anterior ethmoid air cells and bilateral sphenoid sinuses. 4. Some fluid within the mastoid air cells bilaterally. Head MRA 05/10/18 06:52 CONCLUSION: 1. Negative MRA [place] ([place]) non contrast. Chest X-Ray 05/15/18 00:00 CONCLUSION: No significant interval change with persistent bilateral pulmonary parenchymal opacity and bilateral pleural effusions. Objective Remarks: GENERAL: 63-year-old male currently orotracheally intubated, SKIN: cool and dry. HEAD: Atraumatic. Normocephalic. EYES: Pupils equal and round and minimally reactive bilaterally. No scleral icterus. No injection or drainage. ENT: No nasal bleeding or discharge. Mucous membranes pink and moist. NECK: Trachea midline. No JVD. Left IJ is clean dry and intact. day 3 CARDIOVASCULAR: RRR S1, S2. No S4. RESPIRATORY: No accessory muscle use. Clear to auscultation. Breath sounds equal bilaterally. GASTROINTESTINAL: Abdomen soft, non-tender, nondistended. Hepatic and splenic margins not palpable. Normal active bowel sounds MUSCULOSKELETAL: Extremities without clubbing, cyanosis, or edema. No obvious deformities. NEUROLOGICAL: Sedation discontinued 05/14. Spontaneously moving extremities x4 not following commands intermittently spontaneous eye opening, positive gag and cough and minimal corneal reflex. Grimacing and excessive yawning on sedation vacation noted Assessment and Plan - Assessment and Plan Plan: Neuro/Psych: Rule out anoxic encephalopathy Hyperammonemia Original CT brain on admission revealed possible 3 mm mid right araseli hemorrhage. Currently propofol infusion at 30 mcgs for sedation/analgesia while intubated, to maintain ventilator synchrony. Daily sedation vacation Goal of RASS -2 Cold cool Catheter removed 05/12. Neurology/Dr. Connor following, discussed plan for continued evaluation with discontinuation of all sedation EEG completed 05/09 with no epileptic activity. Repeat 05/12 with sharp activity. Will repeat 05/13. Currently on fosphenytoin IV 3 times daily and levetiracetam 500 mg IV twice daily and phenobarbital 60 mg 3 times daily. Check fosphenytoin and phenobarbital level in a.m. 05/13 MRI brain revealed left maxillary, bilateral ethmoid and sphenoid sinusitis. MRA brain revealed normal examination. Continue scheduled dosing lactulose twice daily Trend ammonia level CV Out of hospital cardiac arrest/V. fib Elevated troponin Acute systolic heart failure ejection fraction 30-35% Possible anterior mitral valve ruptured chordae tendon a Currently on amiodarone drip at 0.5 mg/min discontinued 05/13 transitioned to p.o. Cardiology consultation/Dr. Haile. Al for carvedilol 3.125 mg twice daily, start aspirin 81 mg daily and heparin drip that he rates an hour. 05/12 Added enalapril 20 mg daily and atorvastatin 10 mg at night since MRI brain revealed no hemorrhage Originally not candidate for cardiac catheterization due to pontine hemorrhage right mid araseli. This is been changed with MRI/A Troponin elevated 2.86 this a.m. currently elevated at 3.2. Follow until downward trend 2D echocardiogram revealed EF 30-35%. Ruptured chordae tendon possible involving mitral valve. 05/14 carvedilol reinitiated, continues on heparin infusion Resp: Acute respiratory failurelikely aspiration with right lower lobe infiltrate and altered mental status PRVC ventilation Ventilator bundle Begin CPAP trial Head of bed at 30 degrees Albuterol/ipratropium aerosols every 4 hours with albuterol aerosols every 2 hours as needed dyspnea Chest x-ray revealed bilateral pulmonary opacities and small bilateral pleural effusions. GI: Vital 1.5 goal 60 cc output currently 60 cc an hour Pantoprazole for GI prophylaxis Docusate serum/senna 1 tablet twice daily for bowel regimen : [place] catheter placed for accurate I's and O's in a critical patient currentl Endo: Acute hyperglycemia Low TSH Sliding scale insulin with Accu-Cheks to maintain euglycemia. On insulin detemir 4 units twice daily TSH was 0.285. Normal free T4/total T3. Recheck 4-6-week HEME: Leukocytosis-resolved Monitor CBC daily. Follow trends. Leukocytosis downtrending continue to follow CBC de-escalation of antibiotics upon speciation of culture results Continue Vanc and Zosyn Renal Creatinine currently within normal limits Acute I's and O's Heme monitor urine output: ID: Monitor for signs and symptomatology infection Patient with aspiration. Obtain sputum culture-Vanc and Zosyn (day 4) FEN: Replace electrolytes as clinically indicated Discontinue IV fluid MSK: PT evaluate and treat Access -Left CVL day 4 Prophylaxis - -GI pantoprazole - -DVT -SCD/heparin drip 33 minutes critical care time. Palliative care has been consult at request of patient's Mrs. Siddiqui, reevaluation and conference scheduled for Saturday.
[2018-05-16] MEDS: Vancomycin Inj 1,750 MG in Sodium Chlor 0.9% Inj 500 ML IV.SIG SCH ×2 (10:51→23:28)
[2018-05-16 10:58] LABS: Anion Gap 11 meq/L (5-15); Blood Urea Nitrogen 15 mg/dL (7-18); Calcium 8.1 mg/dL (8.5-10.1); Carbon Dioxide 26.1 meq/L (21.0-32.0); Chloride 106 meq/L (98-107); Glomerular Filtration Rate Greater Than 89 mL/min (>89); Glucose,Random 221 mg/dL (74-106); Potassium 3.4 meq/L (3.5-5.1); Sodium 143 meq/L (136-145)
[2018-05-16] MEDS: Dexmedetomidine Inj 200 MCG in Sodium Chlor 0.9% Inj 50 ML IV.CONT PRN ×7 (11:34→23:41)
[2018-05-16] MEDS: Morphine Sulfate Inj 2 MG/ML Vial IV.PUSH PRN ×3 (11:56→21:28)
--- NOTE | 2018-05-16 11:57 | P.DIET ---
Nutritional Evaluation Type of nutrition evaluation: initial Nutrition consult regarding: Tube Feeding Screening comments: 05/11 TF review Objective - Diagnosis s/p cardiac arrest, STEMI, Brain bleed - Objective % IBW: 108 (IBW = 166lb) Body Weight Used for Calculations: Actual Energy Needs - Lower Range (kCal/kg): 22 Energy Needs - Upper Range (kCal/kg): 28 Lower Limit kCal/kg (kCals): 1,797 Upper Limit kCal/kg (kCals): 2,288 Lower Limit Protein Factor (Grams per Kg): 1.2 Upper Limit Protein Factor (Grams per Kg): 1.5 Lower Protein Needs (Protein): 98 Upper Protein Needs (Protein): 123 Dietitian Reviewed in Medical Record: Current diet, Curent medications, Intake & Output, Labs, Medical history, Tube feeding Diet Order: TF Objective Comments: Labs: K+3.4, POC glucose 237 243 267, Ca+ 8,1 HgbA1c 6.5% Assessment Assessment: Pt off sedation and awake, following commands. Pt is TF'ing w/ Vital 1.5 @ 50mL/ hr currently and tolerating. Additional kcals (1.1 kcal/mL) provided by propofol when running. Monitor TF tolerance and glucose labs. Labs reviewed, dietitian following. Additional recs to follow r/t clinical course. Recommendations: 1. RD to recommend Vital 1.5 @ 60mL/hr to best meet pts nutritional needs 2. Monitor TF tolerance and glucose labs 3. Dietitian following 4. Additional recs to follow r/t clinical course Dietitian to Monitor: Lab values, Intake & Output, Tube feeding tolerance, Medical course
[2018-05-16] MEDS ORDERED: RASS Change Order MISCELLANE ONE ×2 (12:00)
[2018-05-16] MEDS: Pantoprazole Inj 40 MG Vial IV.PUSH SCH (12:00)
--- NOTE | 2018-05-16 14:20 | P.PNPAL ---
Reason for Visit Reason for visit: a. To assist with evaluation and management of symptoms including: Pain. b. To assist medical decision maker(s) with: better understanding of current medical conditions; weighing benefits/burdens of medical treatment options; making medical treatment decisions. Subjective Subjective/Interval History: Palliative care follow-up for further clarifications of goals of care, family support. Patient seen in ICU, remains endotracheally intubated on mechanical ventilation. On light sedation for restlessness. Bedside nurse reports that patient has been following some simple commands today. Patient briefly opening eyes during my exam, yawning and biting of ET tube noted. We will hemodynamically. Sputum culture 05/13 positive for MRSA. Low-grade temperature yesterday, max temp 90.9 today. Neurology following. Case discussed with Dr. Roblero and bedside RN Jeanna. Family/Friend Interactions: Met with patient's . Medical update provided. has elected to continue current management short of NO code. Patient NOT to be reintubated if medically extubated/or malfunction of ET tube. electing to allow until early next week to reevaluate patient's clinical condition and overall prognosis for a meaningful neurological recovery. reports that patient has verbalized in many occasions that "if he was unable to return to his independent self (talking, walking, independent with ADL's, riding his motorcycle), any other alternative would NOT be an acceptable quality of life". will NOT proceed with trach/peg if patient is unable to med extubate. Likely to proceed with compassionate withdrawal of life support if unable to medically extubate. Hospice philosophy and benefits reviewed, requesting informative visit with hospice. All questions where answered in great detail. Patient's 42-year-old son currently in [place], unable to visit patient. Advance Directives Living Will: Never completed Health Care Surrogate: Never completed Durable Power of X Ray Technician: Never completed Objective Vital Signs: Vital Signs 05/15/18 15:00 05/15/18 15:30 05/15/18 16:00 Temperature 100.2 F H 100.2 F H Pulse Rate 79 80 81 Respiratory Rate 21 Blood Pressure 138/65 130/60 Pulse Oximetry 97 97 96 05/15/18 17:00 05/15/18 18:00 05/15/18 20:00 Temperature 100.2 F H 100.2 F H 100.2 F H Pulse Rate 81 82 82 Respiratory Rate 14 Blood Pressure 128/62 136/68 135/67 Pulse Oximetry 96 97 97 05/15/18 20:02 05/16/18 00:00 05/16/18 00:27 Temperature 99.9 F H Pulse Rate 84 83 85 Respiratory Rate 19 20 Blood Pressure 133/71 Pulse Oximetry 97 05/16/18 00:28 05/16/18 03:25 05/16/18 04:00 Temperature 99.5 F Pulse Rate 82 88 Respiratory Rate 20 19 Blood Pressure 131/66 Pulse Oximetry 97 99 99 05/16/18 07:00 05/16/18 07:33 05/16/18 08:00 Temperature 99.3 F 99.5 F Pulse Rate 86 86 87 Respiratory Rate 23 Blood Pressure 131/64 127/67 Pulse Oximetry 95 95 95 05/16/18 09:00 Temperature 99.9 F H Pulse Rate 93 H Respiratory Rate Blood Pressure 135/69 Pulse Oximetry 92 L Intake & Output 05/15/18 05/16/18 05/16/18 18:59 06:59 18:59 Intake Total 2963.5 / 2963.5 2843.5 / 2843.5 Output Total 2700 / 2700 1400 / 1400 Balance 263.5 / 263.5 1443.5 / 1443.5 Weight 81 kg Intake: IV 2324.5 / 2324.5 2126.5 / 2126.5 Heparin/D5W 25,000 U/250 mL 25, 250 / 250 000 unit In 250 ml @ Per Protocol IV.CONT TITRATE PRN Rx #:[id number] Diprivan 1000 mg/100 ml Inj 1, 200 / 200 200 / 200 000 mg In 100 ml @ 5 MCG/KG/MIN 2.449 mls/hr IV.CONT TITRATE PRN Rx#:[id number] NS Inj 1,000 ML @ 50 mls/hr IV. 1000 / 1000 1000 / 1000 CONT .Q20H JIM Rx#:[id number] Cerebyx Inj 100 MGPE In NS Inj 52 / 52 104 / 104 50 ML @ 208 mls/hr IV.SIG Q8HR JIM Rx#:[id number] Zosyn 4.5 GM Premix 4.5 gm In 200 / 200 200 / 200 100 ml @ 200 mls/hr IV.SIG Q6H JIM Rx#:[id number] Vancomycin Inj 1,750 MG In NS 517.5 / 517.5 517.5 / 517.5 Inj 500 ML @ 250 mls/hr IV.SIG Q12H JIM Rx#:[id number] Keppra Inj 500 MG In NS Inj 100 105 / 105 105 / 105 ML @ 400 mls/hr IV.SIG Q12H JIM Rx#:[id number] Tube Feeding 579 / 579 617 / 617 Water Bolus Amount 60 / 60 100 / 100 Output: Urine Amount (Catheter) 2700 / 2700 1400 / 1400 Indwelling Temp Sensing 2700 / 2700 1400 / 1400 Catheter Other: Date of Last Bowel Movement 05/14/18 05/14/18 05/14/18 # Bowel Movements 0 Physical Exam: CONSTITUTIONAL/GENERAL: This is an adequately nourished patient endotracheally intubated on mechanical ventilation. No acute distress. TUBES/LINES/DRAINS: ETT, OG, left IJ central line, Orellana catheter, bilateral SCDs, bilateral soft wrist restraints. SKIN: No jaundice, rashes, or lesions. Ecchymoses on upper extremities. No wounds seen anteriorly. Skin temperature appropriate. Not diaphoretic. HEAD: Atraumatic. Normocephalic. EYES: Pupils equal and round and reactive. Extraocular motions intact. No scleral icterus. No injection or drainage. ENT: Hearing grossly normal. Nose without bleeding or purulent drainage. Moist oral mucosa. ETT, OG in place. NECK: Trachea midline. Supple, nontender. CARDIOVASCULAR: Regular rate and rhythm. Peripheral pulses symmetric. RESPIRATORY/CHEST: Symmetric, unlabored respirations. Clear to auscultation. Breath sounds equal bilaterally. Endotracheally intubated on mechanical ventilation. GASTROINTESTINAL: Abdomen soft, non-tender, nondistended. Bowel sounds present. GENITOURINARY: Without palpable bladder distension. Orellana catheter in place. MUSCULOSKELETAL: Extremities without clubbing, cyanosis, or edema. No mottling or clubbing. NEUROLOGICAL: Briefly opening eyes during my exam. Yawning. PSYCHIATRIC: Calm. Diagnostic Tests Laboratory: Laboratory Results - last 72 hr 05/13/18 05/13/18 05/13/18 16:11 19:58 23:57 WBC RBC Hgb Hct MCV MCH MCHC RDW Plt Count MPV Neut % (Auto) Lymph % (Auto) [place] % (Auto) Eos % (Auto) Baso % (Auto) Neut # (Auto) Lymph # (Auto) [place] # (Auto) Eos # (Auto) Baso # (Auto) WBC Differential Differential Comment APTT Puncture Site Patient Temperature O2 Saturation ABG pH ABG pCO2 ABG pO2 ABG HCO3 ABG O2 Content ABG Base Excess ABG Methemoglobin David Test Hemoglobin Carboxyhemoglobin O2 Delivery Device Vent Setting Inspired O2 Critical Value Sodium Potassium Chloride Carbon Dioxide Anion Gap BUN Creatinine Estimated GFR POC Glucose 179 H 201 H 173 H Random Glucose Calcium Phosphorus Magnesium Ammonia Troponin I Vancomycin Trough Phenytoin Phenobarbital 05/14/18 05/14/18 05/14/18 04:05 04:05 04:05 WBC 11.6 H RBC 4.26 L Hgb 12.2 L Hct 36.3 L MCV 85.1 MCH 28.5 MCHC 33.6 RDW 15.1 Plt Count 200 MPV 8.9 Neut % (Auto) 81.1 H Lymph % (Auto) 7.6 L [place] % (Auto) 7.3 Eos % (Auto) 3.6 Baso % (Auto) 0.4 Neut # (Auto) 9.4 H Lymph # (Auto) 0.9 L [place] # (Auto) 0.8 Eos # (Auto) 0.4 Baso # (Auto) 0.0 WBC Differential . Differential Comment Auto diff final APTT 42.0 H Puncture Site Patient Temperature O2 Saturation ABG pH ABG pCO2 ABG pO2 ABG HCO3 ABG O2 Content ABG Base Excess ABG Methemoglobin David Test Hemoglobin Carboxyhemoglobin O2 Delivery Device Vent Setting Inspired O2 Critical Value Sodium 143 Potassium 3.7 Chloride 110 H Carbon Dioxide 27.0 Anion Gap 6 BUN 16 Creatinine 0.65 Estimated GFR Greater than 89 POC Glucose Random Glucose 234 H Calcium 8.1 L Phosphorus 2.2 L Magnesium 2.0 Ammonia Troponin I 12.50 H* Vancomycin Trough Phenytoin 12.4 Phenobarbital 7.8 L 05/14/18 05/14/18 05/14/18 04:23 05:33 08:28 WBC RBC Hgb Hct MCV MCH MCHC RDW Plt Count MPV Neut % (Auto) Lymph % (Auto) [place] % (Auto) Eos % (Auto) Baso % (Auto) Neut # (Auto) Lymph # (Auto) [place] # (Auto) Eos # (Auto) Baso # (Auto) WBC Differential Differential Comment APTT Puncture Site Patient Temperature O2 Saturation ABG pH ABG pCO2 ABG pO2 ABG HCO3 ABG O2 Content ABG Base Excess ABG Methemoglobin David Test Hemoglobin Carboxyhemoglobin O2 Delivery Device Vent Setting Inspired O2 Critical Value Sodium Potassium Chloride Carbon Dioxide Anion Gap BUN Creatinine Estimated GFR POC Glucose 209 H 245 H 219 H Random Glucose Calcium Phosphorus Magnesium Ammonia Troponin I Vancomycin Trough Phenytoin Phenobarbital 05/14/18 05/14/18 05/14/18 16:03 20:25 23:14 WBC RBC Hgb Hct MCV MCH MCHC RDW Plt Count MPV Neut % (Auto) Lymph % (Auto) [place] % (Auto) Eos % (Auto) Baso % (Auto) Neut # (Auto) Lymph # (Auto) [place] # (Auto) Eos # (Auto) Baso # (Auto) WBC Differential Differential Comment APTT Puncture Site Patient Temperature O2 Saturation ABG pH ABG pCO2 ABG pO2 ABG HCO3 ABG O2 Content ABG Base Excess ABG Methemoglobin David Test Hemoglobin Carboxyhemoglobin O2 Delivery Device Vent Setting Inspired O2 Critical Value Sodium Potassium Chloride Carbon Dioxide Anion Gap BUN Creatinine Estimated GFR POC Glucose 232 H 208 H 185 H Random Glucose Calcium Phosphorus Magnesium Ammonia Troponin I Vancomycin Trough Phenytoin Phenobarbital 05/14/18 05/15/18 05/15/18 23:15 04:22 04:24 WBC 11.0 RBC 4.31 L Hgb 12.3 L Hct 37.1 L MCV 86.0 MCH 28.5 MCHC 33.1 RDW 14.7 Plt Count 206 MPV 8.5 Neut % (Auto) 79.2 H Lymph % (Auto) 8.6 L [place] % (Auto) 8.2 H Eos % (Auto) 3.3 Baso % (Auto) 0.7 Neut # (Auto) 8.7 H Lymph # (Auto) 0.9 L [place] # (Auto) 0.9 Eos # (Auto) 0.4 Baso # (Auto) 0.1 WBC Differential . Differential Comment Auto diff final APTT Puncture Site Patient Temperature O2 Saturation ABG pH ABG pCO2 ABG pO2 ABG HCO3 ABG O2 Content ABG Base Excess ABG Methemoglobin David Test Hemoglobin Carboxyhemoglobin O2 Delivery Device Vent Setting Inspired O2 Critical Value Sodium Potassium Chloride Carbon Dioxide Anion Gap BUN Creatinine Estimated GFR POC Glucose 213 H Random Glucose Calcium Phosphorus 2.2 L Magnesium Ammonia Troponin I Vancomycin Trough 8.8 Phenytoin Phenobarbital 05/15/18 05/15/18 05/15/18 04:24 04:24 04:24 WBC RBC Hgb Hct MCV MCH MCHC RDW Plt Count MPV Neut % (Auto) Lymph % (Auto) [place] % (Auto) Eos % (Auto) Baso % (Auto) Neut # (Auto) Lymph # (Auto) [place] # (Auto) Eos # (Auto) Baso # (Auto) WBC Differential Differential Comment APTT 40.1 H Puncture Site Patient Temperature O2 Saturation ABG pH ABG pCO2 ABG pO2 ABG HCO3 ABG O2 Content ABG Base Excess ABG Methemoglobin David Test Hemoglobin Carboxyhemoglobin O2 Delivery Device Vent Setting Inspired O2 Critical Value Sodium 143 Potassium 3.5 Chloride 108 H Carbon Dioxide 26.9 Anion Gap 8 BUN 16 Creatinine 0.67 Estimated GFR Greater than 89 POC Glucose Random Glucose 235 H Calcium 8.2 L Phosphorus Magnesium 2.1 Ammonia 37 H Troponin I Vancomycin Trough Phenytoin 13.1 Phenobarbital 12.5 L 05/15/18 05/15/18 05/15/18 08:01 08:44 11:35 WBC RBC Hgb Hct MCV MCH MCHC RDW Plt Count MPV Neut % (Auto) Lymph % (Auto) [place] % (Auto) Eos % (Auto) Baso % (Auto) Neut # (Auto) Lymph # (Auto) [place] # (Auto) Eos # (Auto) Baso # (Auto) WBC Differential Differential Comment APTT Puncture Site Art line Patient Temperature 98.6 O2 Saturation 96 ABG pH 7.50 H ABG pCO2 34 L ABG pO2 87 ABG HCO3 27 H ABG O2 Content 17.1 ABG Base Excess 3.5 H ABG Methemoglobin 1.3 David Test Hemoglobin 12.7 Carboxyhemoglobin 0.8 O2 Delivery Device Ventilator Vent Setting Prvc/ac Inspired O2 40 Critical Value No Sodium Potassium Chloride Carbon Dioxide Anion Gap BUN Creatinine Estimated GFR POC Glucose 221 H 237 H Random Glucose Calcium Phosphorus Magnesium Ammonia Troponin I Vancomycin Trough Phenytoin Phenobarbital 05/15/18 05/15/18 05/15/18 16:29 20:20 23:36 WBC RBC Hgb Hct MCV MCH MCHC RDW Plt Count MPV Neut % (Auto) Lymph % (Auto) [place] % (Auto) Eos % (Auto) Baso % (Auto) Neut # (Auto) Lymph # (Auto) [place] # (Auto) Eos # (Auto) Baso # (Auto) WBC Differential Differential Comment APTT Puncture Site Patient Temperature O2 Saturation ABG pH ABG pCO2 ABG pO2 ABG HCO3 ABG O2 Content ABG Base Excess ABG Methemoglobin David Test Hemoglobin Carboxyhemoglobin O2 Delivery Device Vent Setting Inspired O2 Critical Value Sodium Potassium Chloride Carbon Dioxide Anion Gap BUN Creatinine Estimated GFR POC Glucose 138 H 250 H 243 H Random Glucose Calcium Phosphorus Magnesium Ammonia Troponin I Vancomycin Trough Phenytoin Phenobarbital 05/16/18 05/16/18 05/16/18 03:22 05:00 05:45 WBC RBC Hgb Hct MCV MCH MCHC RDW Plt Count MPV Neut % (Auto) Lymph % (Auto) [place] % (Auto) Eos % (Auto) Baso % (Auto) Neut # (Auto) Lymph # (Auto) [place] # (Auto) Eos # (Auto) Baso # (Auto) WBC Differential Differential Comment APTT 36.3 H Puncture Site Art line Patient Temperature 98.6 O2 Saturation 95 ABG pH 7.47 H ABG pCO2 34 L ABG pO2 88 ABG HCO3 24 ABG O2 Content 16.5 ABG Base Excess 1.1 ABG Methemoglobin 1.4 David Test Present Hemoglobin 12.3 Carboxyhemoglobin 0.7 O2 Delivery Device Ventilator Vent Setting Prvc/ ac Inspired O2 40 Critical Value No Sodium Potassium Chloride Carbon Dioxide Anion Gap BUN Creatinine Estimated GFR POC Glucose 184 H Random Glucose Calcium Phosphorus Magnesium Ammonia Troponin I Vancomycin Trough Phenytoin Phenobarbital 05/16/18 05/16/18 05/16/18 05:45 05:45 05:45 WBC 10.8 RBC 4.24 L Hgb 12.3 L Hct 35.7 L MCV 84.1 MCH 29.0 MCHC 34.4 RDW 14.8 Plt Count 213 MPV 9.3 Neut % (Auto) 76.0 H Lymph % (Auto) 8.9 L [place] % (Auto) 10.3 H Eos % (Auto) 4.2 H Baso % (Auto) 0.6 Neut # (Auto) 8.2 H Lymph # (Auto) 1.0 [place] # (Auto) 1.1 H Eos # (Auto) 0.5 H Baso # (Auto) 0.1 WBC Differential . Differential Comment Auto diff final APTT Puncture Site Patient Temperature O2 Saturation ABG pH ABG pCO2 ABG pO2 ABG HCO3 ABG O2 Content ABG Base Excess ABG Methemoglobin David Test Hemoglobin Carboxyhemoglobin O2 Delivery Device Vent Setting Inspired O2 Critical Value Sodium 143 Potassium 3.4 L Chloride 106 Carbon Dioxide 26.1 Anion Gap 11 BUN 15 Creatinine 0.73 Estimated GFR Greater than 89 POC Glucose Random Glucose 221 H Calcium 8.1 L Phosphorus 3.4 D Magnesium 2.0 Ammonia 36 H Troponin I Vancomycin Trough Phenytoin 12.7 Phenobarbital 12.0 L 05/16/18 05/16/18 05/16/18 05:45 07:55 11:05 WBC RBC Hgb Hct MCV MCH MCHC RDW Plt Count MPV Neut % (Auto) Lymph % (Auto) [place] % (Auto) Eos % (Auto) Baso % (Auto) Neut # (Auto) Lymph # (Auto) [place] # (Auto) Eos # (Auto) Baso # (Auto) WBC Differential Differential Comment APTT Puncture Site Patient Temperature O2 Saturation ABG pH ABG pCO2 ABG pO2 ABG HCO3 ABG O2 Content ABG Base Excess ABG Methemoglobin David Test Hemoglobin Carboxyhemoglobin O2 Delivery Device Vent Setting Inspired O2 Critical Value Sodium Cancelled Potassium Cancelled Chloride Cancelled Carbon Dioxide Cancelled Anion Gap Cancelled BUN Cancelled Creatinine Cancelled Estimated GFR Cancelled POC Glucose 231 H Random Glucose Cancelled Calcium Cancelled Phosphorus Magnesium Ammonia Troponin I Vancomycin Trough 14.6 H Phenytoin Phenobarbital 05/16/18 05/16/18 11:05 11:07 WBC RBC Hgb Hct MCV MCH MCHC RDW Plt Count MPV Neut % (Auto) Lymph % (Auto) [place] % (Auto) Eos % (Auto) Baso % (Auto) Neut # (Auto) Lymph # (Auto) [place] # (Auto) Eos # (Auto) Baso # (Auto) WBC Differential Differential Comment APTT 30.8 Puncture Site Patient Temperature O2 Saturation ABG pH ABG pCO2 ABG pO2 ABG HCO3 ABG O2 Content ABG Base Excess ABG Methemoglobin David Test Hemoglobin Carboxyhemoglobin O2 Delivery Device Vent Setting Inspired O2 Critical Value Sodium Potassium Chloride Carbon Dioxide Anion Gap BUN Creatinine Estimated GFR POC Glucose 267 H Random Glucose Calcium Phosphorus Magnesium Ammonia Troponin I Vancomycin Trough Phenytoin Phenobarbital Result Diagrams: 05/16/18 05:45 05/16/18 05:45 Microbiology: Microbiology 05/13/18 11:50 Gram Stain - Final Sputum - Endotracheal Sputum Culture - Final S. aureus MRSA 05/09/18 16:00 Aerobic Blood Culture - Final Blood - Line No growth in 5 days Anaerobic Blood Culture - Final No growth in 5 days 05/08/18 21:38 Aerobic Blood Culture - Final Blood - Peripheral No growth in 5 days Anaerobic Blood Culture - Final No growth in 5 days 05/08/18 21:33 Aerobic Blood Culture - Final Blood - Peripheral No growth in 5 days Anaerobic Blood Culture - Final No growth in 5 days Procedures: 05/08: Endotracheal intubation 05/12: Left IJ central line Assessment and Plan - Disease Oriented Problem List (1) Acute respiratory failure (2) Hypoxic encephalopathy (3) Ischemic cardiomyopathy (4) Cardiac arrest Pertinent Non-Medical Issues: Psychosocial: Patient originally from [place], moved to [place] 14 years ago. for the past 14 years. Has 1 biological son, Valente who is 42 y/o and resizing [place]. 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 No service. Spiritual: No temple affiliation reported. Legal: No advanced directives completed. Ethical issues impacting care: No ethical issues have been identified. Important Contacts: Patient's Dyan . Prognosis: Mr. Siddiqui is a 63-year-old male with no significant past medical history who presented to ED status post V. fib/V. tach arrest. Clinical course complicated by persistent post anoxic seizures. Overall poor prognosis for meaningful neurological recovery. Patient at high risk for further complications, continued decline and . Code Status: No Code DNR Plan: * CODE STATUS: NO code. As per , patient NOT to be reintubated in the setting of medical extubation and/or ETT malfunction. * HEALTHCARE DECISION-MAKING: Patient unable to participate in medical decision making in the setting of anoxic brain. Not likely to regain medical decision making capacity. No advance directives completed. As per [place] statue in the absence of AD, healthcare proxy decision making falls to patient's Dyan Siddiqui. has accepted this role and is fully supported by patient's sister and son. * GOALS OF CARE: Patient's acting as healthcare proxy decision-maker has elected to continue current management short of NO code. Patient NOT to be reintubated if medically extubated/or malfunction of ET tube. electing to allow until early next week to reevaluate patient's clinical condition and overall prognosis for a meaningful neurological recovery. reports that patient has verbalized in many occasions that "if he was unable to return to his independent self (talking, walking, independent with ADL's, riding his motorcycle), any other alternative would NOT be an acceptable quality of life". will NOT proceed with trach/peg if patient is unable to med extubate. Likely to proceed with compassionate withdrawal of life support if unable to medically extubate. Hospice philosophy and benefits reviewed, requesting informative visit with hospice. * SYMPTOMS: =Pain: Secondary to multiple lines, intubation, bedrest. Fentanyl drip currently on hold. Morphine 2 mg IV every 2 hours available as needed. No further recommendations. * Palliative care contact information has been provided to patient's . * Ongoing emotional support and active listening provided. Spiritual services offered and declined. * Case discussed with Dr. Roblero and bedside RN Jeanna. * Palliative care to continue to follow-up for further clarifications of goals of care, family support as patient's clinical course continues to evolve. Time Spent Total Floor Time (mins): 38 (Total time to include review of medical records, physical exam, goals of care conversation with patient's , case discussion with attending at bedside RN.) >50% Time in Counseling or Coordination of Care: Yes (Total visit time = 38 minutes; > 50% spent counseling/coordinating care) Attestation Attestation: To help prompt me to consider important information that might be impacting today's encounter and assessment, information from prior notes written by myself or my colleagues may have been "brought forward" into today's note. My signature on this note, however, is an attestation that I personally performed the exam, history, and/or decision-making noted today, and, unless otherwise indicated, the interactions with patient, family, and staff as well as the review of records all occurred today. I also attest that the listed assessment and stated plan reflect my best clinical judgment today based on the combination of historical information, prior notes, and today's exam/ interactions. When time spent is documented, it refers only to time spent today by the signer, or if indicated, combined time spent today by collaborating physician/nurse practitioner.
[2018-05-16] MEDS: Heparin Drip 25,000 UNIT/250 ML BAG IV.CONT PRN (16:26)
[2018-05-16] MEDS: Acetaminophen 325 MG Tablet PO PRN (21:30)
[2018-05-17] MEDS: Dexmedetomidine Inj 1,000 MCG in Sodium Chlor 0.9% Inj 240 ML IV.CONT PRN ×3 (01:45→17:40)
[2018-05-17] MEDS: Oral Hygiene Kit OROPHARYNG SCH ×4 (04:37→23:00)
[2018-05-17] MEDS: Artificial Tears Opth Drops 15 ML Bottle EACH EYE SCH ×3 (04:37→20:43)
[2018-05-17] MEDS: Piperacil/Tazo 4.5 GM Premix 4.5 GM/100 ML BAG IV.SIG SCH ×4 (04:37→22:59)
[2018-05-17] MEDS: Insulin NovoLOG Aspart Correctional Sugar Inj SQ SCH ×5 (05:00→20:42)
[2018-05-17] MEDS: Fosphenytoin Inj 100 MGPE in Sodium Chlor 0.9% Inj 50 ML IV.SIG SCH ×3 (05:00→22:15)
--- NOTE | 2018-05-17 05:02 | XR ---
EXAM DATE: 05/17/2018 4:06 AM EST AGE/SEX: 63 years / Male INDICATIONS: Shortness of breath, possible pulmonary disease. CLINICAL DATA: This is the patient's subsequent encounter. Patient reports that signs and symptoms h ave been present for 2 weeks and indicates a pain score of Nonresponsive. MEDICAL/SURGICAL HISTORY: Seizures. Myocardial infarction. Non-responsive. COMPARISON: [facility], CHEST 1V SINGLE AP, 05/15/2018. . FINDINGS: Endotracheal tube tip about 1 cm fannie. NG enters stomach. Left central line in superior vena cava. Basilar airspace disease unchanged from May 15. Bilateral effusions. No pneumothorax. CONCLUSION: Support apparatus unchanged. Stable basilar airspace pleural effusions. Electronically signed by: Jay Silverio MD 05/17/2018 5:01 AM EST
[2018-05-17 07:07] LABS: Baso # (Auto) 0.1 th/mm3 (0.0-0.2); Baso % (Auto) 0.5 % (0.0-2.0); Eos # (Auto) 0.4 th/mm3 (0.0-0.4); Eos % (Auto) 3.5 % (0.0-4.0); Hematocrit 33.3 % (39.0-51.0); Lymph % (Auto) 9.2 % (9.0-44.0); Mean Corpuscular HGB Conc 33.1 % (32.0-36.0); Mean Corpuscular Hemoglobin 28.4 pg (27.0-34.0); Mean Corpuscular Volume 85.6 fL (80.0-100.0); Mean Platelet Volume 9.3 fL (7.0-11.0); Mono # (Auto) 0.7 th/mm3 (0.0-0.9); Mono % (Auto) 6.5 % (0.0-8.0); Neut % (Auto) 80.3 % (16.0-70.0); Platelet Count 194 th/mm3 (150-450); Red Cell Distribution Width 14.6 % (11.6-17.2); White Blood Count 11.2 th/mm3 (4.0-11.0)
[2018-05-17 07:19] LABS: Calcium 8.2 mg/dL (8.5-10.1); Carbon Dioxide 25.3 meq/L (21.0-32.0); Magnesium 2.2 mg/dL (1.5-2.5); Phosphorus 3.7 mg/dL (2.5-4.9); Potassium 3.8 meq/L (3.5-5.1)
[2018-05-17 07:20] LABS: Phenytoin (Dilantin) 13.1 mcg/mL (10.0-20.0)
[2018-05-17] MEDS: Insulin Detemir Inj 1,000 UNIT/10 ML Vial SQ SCH ×2 (08:45→20:43)
[2018-05-17] MEDS: Polyethylene Glycol 3350 17 GM Packet PO SCH ×2 (08:46→20:43)
[2018-05-17] MEDS: Amiodarone 200 MG Tablet PO SCH (08:46)
[2018-05-17] MEDS: Chlorhexidine 0.12% Oral Kit 15 ML UDC OROPHARYNG SCH ×2 (08:46→20:42)
[2018-05-17] MEDS: Senna/Docusate Sodium 8.6/50 MG Tablet PO SCH ×2 (08:47→20:43)
[2018-05-17] MEDS: Vancomycin Inj 1,750 MG in Sodium Chlor 0.9% Inj 500 ML IV.SIG SCH (10:53)
--- NOTE | 2018-05-17 10:56 | P.PNCC ---
Subjective Subjective Remarks/Hospital Course: 63-year-old male presents to emergency department intubated after VF/VT arrest. He had to be defibrillated twice in the field, afterwards clear STEMI criteria was called by [facility]. Apparently heard a collapse in the next room found the patient unresponsive called 9 1. Apparently total downtime was about 10 minutes and had a very quick Rask. Blood pressure was little low and dopamine drip was started in the field. Patient also had amiodarone started in the field. Initially the STEMI alert was called brain demonstrated punctate hyperdensity characteristic of hemorrhage in the right mid araseli in the STEMI alert was canceled. The patient has been admitted to ICU for hypothermia protocol treatment post cardiac arrest. 05/09: Discussed with at bedside. Currently on target temperature monitoring. EEG performed. Replacing potassium and phosphorus this a.m. 05/10: Currently temperature is a 97. Has been rewarmed from target temperature monitoring. EEG revealed no epileptic activity. Replace potassium currently. MRI brain revealed no signs of hemorrhage. Will start on heparin drip [place] protocol 900 units an hour and provide aspirin. Carvedilol started by cardiology during the a.m. 05/11: Phosphorus being replaced. Weaning off sedation currently. Rewarmed to 37 C. No problem. Tolerating tube feeds currently at 30 cc now. Subjective: 05/12: Currently resting in bed. New central has been placed and targeted temperature monitoring Quatro catheter has been removed. Seizures overnight. Currently on fosphenytoin and levetiracetam. Remains on midazolam drip. Updated at bedside. 05/13: Low-grade temperature during the night continues greater than 99.0., Noted blood cultures negative growth to date. Remains encephalopathic .EEG revealed continued epileptiform activity. Patient noted phenobarbital level this a.m. subtherapeutic at 3.1. Noted persistent leukocytosis, bilateral pulmonary opacities, sputum culture pending. Palliative care has been consulted. 05/14: Sedative discontinued early this a.m.. Noted spontaneous eye opening with neurologist Dr. Connor at the bedside, not following any commands. EEG revealed a few spikes, patient continues on anticonvulsant regimen and seizure precautions. Noted hypertension systolic blood pressure greater than 170 Vasotec reinitiated. discussed findings with Dr. Connor at bedside we will continue to monitor discontinue all sedatives and continually evaluate neurological status. Plan this afternoon to meet with patient's Mrs. Siddiqui and palliative care. 05/15: Off all sedation noted spontaneous movement but not following any commands with excessive yawning and grimacing noted. Patient placed back on propofol low-dose infusion. Palliative care conference with patient's reveal patient to be placed in a no CPR CODE STATUS at this time. Discussion with Dr. Connor, neurology yesterday we will continue to monitor and evaluate optimizing care and continued evaluation at this time. No change in respiratory requirements however chest x-ray noted bilateral pleural effusions IV infusions decreased patient now normotensive carvedilol reinitiated. 05/16: Afebrile. Per RN yesterday the patient followed commands with left upper extremity. Upon my evaluation paid patient noted to be off sedation spontaneous eye opening and tracking. Excessive yawning and grimacing also noted. Propofol has been discontinued Precedex to maintain ventilator synchrony if required. Patient continues on heparin infusion. Leukocytosis has been resolved. Review of EEG per neurology only a few sharp spikes phenobarbital has been discontinued. 05/17: Patient remains on Precedex infusion @ 1.2 mcg/kg/hr. Per report the patient was extremely agitated early this a.m.. Upon evaluation of the patient , he is responding to commands squeezing hands bilaterally, and also bilateral movement of lower extremities. Patient is nodding head to yes and no questions , and attempting to talk. Objective Vital Signs / I&O: Vital Signs 05/16/18 11:00 05/16/18 12:00 05/16/18 12:46 Temperature 100.2 F H 100.2 F H 100.4 F H Pulse Rate 93 H 90 83 Respiratory Rate Blood Pressure 132/67 133/65 108/58 L Pulse Oximetry 96 95 05/16/18 13:00 05/16/18 13:15 05/16/18 13:30 Temperature 100.4 F H 100.4 F H 100.2 F H Pulse Rate 84 80 81 Respiratory Rate Blood Pressure 102/53 L 98/52 L 95/52 L Pulse Oximetry 96 95 74 L 05/16/18 13:45 05/16/18 14:00 05/16/18 14:03 Temperature 100.2 F H 100.2 F H 100.2 F H Pulse Rate 78 81 77 Respiratory Rate Blood Pressure 103/57 L 103/55 L Pulse Oximetry 100 94 L 96 05/16/18 14:15 05/16/18 14:30 05/16/18 14:45 Temperature 100.4 F H 100.2 F H 100.2 F H Pulse Rate 76 78 75 Respiratory Rate Blood Pressure 101/55 L 97/54 L 96/54 L Pulse Oximetry 96 96 95 05/16/18 15:00 05/16/18 15:15 05/16/18 15:17 Temperature 100.2 F H 100.2 F H Pulse Rate 75 77 78 Respiratory Rate 16 Blood Pressure 97/56 L 105/60 Pulse Oximetry 96 95 97 05/16/18 15:30 05/16/18 15:45 05/16/18 16:00 Temperature 100.2 F H 100.4 F H 100.4 F H Pulse Rate 75 78 76 Respiratory Rate Blood Pressure 100/60 102/57 L 102/56 L Pulse Oximetry 96 95 96 05/16/18 16:15 05/16/18 16:30 05/16/18 16:46 Temperature 100.6 F H 100.6 F H 100.4 F H Pulse Rate 75 74 75 Respiratory Rate Blood Pressure 99/56 L 103/57 L 87/54 L Pulse Oximetry 94 L 97 99 05/16/18 17:00 05/16/18 20:00 05/16/18 20:20 Temperature 100.6 F H 101.3 F H Pulse Rate 74 75 Respiratory Rate 26 H Blood Pressure 89/52 L 116/62 Pulse Oximetry 96 95 95 05/16/18 23:56 05/17/18 00:00 05/17/18 04:00 Temperature 101.5 F H 100.8 F H Pulse Rate 72 73 Respiratory Rate 20 Blood Pressure 104/56 L 108/57 L Pulse Oximetry 94 L 94 L 97 05/17/18 07:44 05/17/18 08:00 05/17/18 09:00 Temperature 100.4 F H Pulse Rate 71 71 Respiratory Rate 24 Blood Pressure 112/60 Pulse Oximetry 98 Intake & Output 05/16/18 05/17/18 05/17/18 18:59 06:59 18:59 Intake Total 1862.5 / 1862.5 1854.5 / 1854.5 Output Total 2700 / 2700 650 / 650 Balance -837.5 / -837.5 1204.5 / 1204.5 Weight 81.9 kg Intake: IV 1280.5 / 1280.5 1134.5 / 1134.5 Precedex Inj 200 MCG In NS Inj 156 / 156 208 / 208 50 ML @ 0.2 MCG/KG/HR 4.21 mls/ hr IV.CONT TITRATE PRN Rx#: [id number] Heparin/D5W 25,000 U/250 mL 25, 250 / 250 000 unit In 250 ml @ Per Protocol IV.CONT TITRATE PRN Rx #:[id number] Cerebyx Inj 100 MGPE In NS Inj 52 / 52 104 / 104 50 ML @ 208 mls/hr IV.SIG Q8HR JIM Rx#:[id number] Zosyn 4.5 GM Premix 4.5 gm In 200 / 200 200 / 200 100 ml @ 200 mls/hr IV.SIG Q6H JIM Rx#:[id number] Vancomycin Inj 1,750 MG In NS 517.5 / 517.5 517.5 / 517.5 Inj 500 ML @ 250 mls/hr IV.SIG Q12H JIM Rx#:[id number] Keppra Inj 500 MG In NS Inj 100 105 / 105 105 / 105 ML @ 400 mls/hr IV.SIG Q12H JIM Rx#:[id number] Tube Feeding 582 / 582 620 / 620 Water Bolus Amount 100 / 100 Output: Urine Amount (Catheter) 2700 / 2700 650 / 650 Indwelling Temp Sensing 2700 / 2700 650 / 650 Catheter Other: Date of Last Bowel Movement 05/14/18 05/17/18 05/17/18 # Bowel Movements 1 Result Diagrams: 05/17/18 06:37 05/17/18 06:37 Other Results: Laboratory Results WBC 11.2 th/mm3 (4.0-11.0) H 05/17/18 06:37 RBC 3.90 mil/mm3 (4.50-5.90) L 05/17/18 06:37 Hgb 11.0 gm/dL (13.0-17.0) L 05/17/18 06:37 POC Hgb (Calc) 15.6 g/dL (13.0-17.0) 05/08/18 20:45 Hct 33.3 % (39.0-51.0) L 05/17/18 06:37 POC Hct 46.0 % (39-51.0) 05/08/18 20:45 MCV 85.6 fL (80.0-100.0) 05/17/18 06:37 MCH 28.4 pg (27.0-34.0) 05/17/18 06:37 MCHC 33.1 % (32.0-36.0) 05/17/18 06:37 RDW 14.6 % (11.6-17.2) 05/17/18 06:37 Plt Count 194 th/mm3 (150-450) 05/17/18 06:37 MPV 9.3 fL (7.0-11.0) 05/17/18 06:37 Prelim Diff (Auto) Slide review pending 05/08/18 20:45 Neut % (Auto) 80.3 % (16.0-70.0) H 05/17/18 06:37 Lymph % (Auto) 9.2 % (9.0-44.0) 05/17/18 06:37 [place] % (Auto) 6.5 % (0.0-8.0) 05/17/18 06:37 Eos % (Auto) 3.5 % (0.0-4.0) 05/17/18 06:37 Baso % (Auto) 0.5 % (0.0-2.0) 05/17/18 06:37 Neut # (Auto) 9.0 th/mm3 (1.8-7.7) H 05/17/18 06:37 Lymph # (Auto) 1.0 th/mm3 (1.0-4.8) 05/17/18 06:37 [place] # (Auto) 0.7 th/mm3 (0.0-0.9) 05/17/18 06:37 Eos # (Auto) 0.4 th/mm3 (0.0-0.4) 05/17/18 06:37 Baso # (Auto) 0.1 th/mm3 (0.0-0.2) 05/17/18 06:37 WBC Differential . 05/17/18 06:37 Seg Neuts % (Manual) 63 % (16-70) 05/08/18 20:45 Lymphocytes % (Manual) 21 % (9-44) 05/08/18 20:45 Monocytes % (Manual) 7 % (0-8) 05/08/18 20:45 Eosinophils % (Manual) 9 % (0-4) H 05/08/18 20:45 Abs Neuts (Manual) 8.6 th/mm3 (1.8-7.7) H 05/08/18 20:45 Differential Comment Auto diff final 05/17/18 06:37 Platelet Estimate Normal (Normal) 05/08/18 20:45 Platelet Morphology Normal (Normal) 05/08/18 20:45 RBC Morphology Normal (Normal) 05/08/18 20:45 PT 11.6 sec (9.8-11.6) 05/10/18 16:10 INR 1.1 Ratio 05/10/18 16:10 APTT 41.3 sec (23.4-31.7) H 05/17/18 01:00 Puncture Site Art line 05/16/18 05:00 Patient Temperature 98.6 05/16/18 05:00 O2 Saturation 95 % (90-100) 05/16/18 05:00 ABG pH 7.47 (7.380-7.420) H 05/16/18 05:00 ABG pCO2 34 mmHg (38-42) L 05/16/18 05:00 ABG pO2 88 mmHG (61-120) 05/16/18 05:00 ABG HCO3 24 mmol/L (22-26) 05/16/18 05:00 ABG O2 Content 16.5 Vol % (12.0-20.0) 05/16/18 05:00 ABG Base Excess 1.1 mmol/L (-2-2) 05/16/18 05:00 ABG Methemoglobin 1.4 % (0-2) 05/16/18 05:00 David Test Present 05/16/18 05:00 Hemoglobin 12.3 G/DL (12.0-16.0) 05/16/18 05:00 Carboxyhemoglobin 0.7 % (0-4) 05/16/18 05:00 O2 Delivery Device Ventilator 05/16/18 05:00 Vent Setting Prvc/ ac 05/16/18 05:00 Inspired O2 40 % 05/16/18 05:00 Critical Value No 05/16/18 05:00 POC Sodium 137 mmol/L (137-144) 05/08/18 20:45 Sodium 143 meq/L (136-145) 05/17/18 06:37 POC Potassium 3.2 mmol/L (3.6-5.0) L 05/08/18 20:45 Potassium 3.8 meq/L (3.5-5.1) 05/17/18 06:37 POC Chloride 96 mmol/L (102-111) L 05/08/18 20:45 Chloride 108 meq/L (98-107) H 05/17/18 06:37 Carbon Dioxide 25.3 meq/L (21.0-32.0) 05/17/18 06:37 Anion Gap 10 meq/L (5-15) 05/17/18 06:37 POC BUN 6 mg/dL (5-21) 05/08/18 20:45 BUN 29 mg/dL (7-18) H 05/17/18 06:37 Creatinine 1.35 mg/dL (0.60-1.30) H 05/17/18 06:37 POC Creatinine 1.0 mg/dL (0.6-1.3) 05/08/18 20:45 Estimated GFR 53 mL/min (>89) L 05/17/18 06:37 POC Glucose 236 mg/dl (68-110) H 05/17/18 07:28 Random Glucose 266 mg/dL (74-106) H 05/17/18 06:37 Hemoglobin A1c 6.5 % (4.3-6.0) H 05/09/18 14:58 Lactic Acid 2.4 mmol/L (0.4-2.0) H 05/09/18 17:45 Calcium 8.2 mg/dL (8.5-10.1) L 05/17/18 06:37 Phosphorus 3.7 mg/dL (2.5-4.9) 05/17/18 06:37 Magnesium 2.2 mg/dL (1.5-2.5) 05/17/18 06:37 Total Bilirubin 0.4 mg/dL (0.2-1.0) 05/13/18 04:25 Direct Bilirubin 0.3 mg/dL (0.0-0.2) H 05/09/18 01:10 Indirect Bilirubin 0.8 mg/dL (0.0-0.8) 05/09/18 01:10 AST 67 U/L (15-37) H 05/13/18 04:25 ALT 51 U/L (12-78) 05/13/18 04:25 Alkaline Phosphatase 85 U/L (45-117) 05/13/18 04:25 Ammonia 45 mcmol/L (11-32) H 05/17/18 06:37 Total Creatine Kinase 721 U/L (39-308) H 05/12/18 04:45 CK-MB (CK-2) 27.5 ng/mL (0.5-3.6) H 05/12/18 04:45 CK-MB (CK-2) % 3.8 % (0.0-4.0) 05/12/18 04:45 Troponin I 12.50 ng/mL (0.02-0.05) H* 05/14/18 04:05 Total Protein 5.5 g/dL (6.4-8.2) L 05/13/18 04:25 Albumin 2.0 g/dL (3.4-5.0) L 05/13/18 04:25 Triglycerides 89 mg/dL (42-150) 05/09/18 14:58 Cholesterol 129 mg/dL (120-200) 05/09/18 14:58 LDL Cholesterol, Calc 61 mg/dL (0-99) 05/09/18 14:58 HDL Cholesterol 50.7 mg/dL (40.0-60.0) 05/09/18 14:58 Cholesterol/HDL Ratio 2.54 Ratio 05/09/18 14:58 TSH 0.285 uIU/mL (0.358-3.740) L 05/10/18 00:30 Free T4 1.08 ng/dL (0.76-1.46) 05/10/18 15:55 Total T3 70 ng/dL (60-181) 05/10/18 22:15 Cortisol 23.8 mcg/dL 05/13/18 09:20 Urine Color Straw (Yellw/Straw) 05/08/18 22:30 Urine Clarity Clear (Clear) 05/08/18 22:30 Urine pH 6.0 (5.0-8.5) 05/08/18 22:30 Ur Specific [place] 1.005 (1.002-1.035) 05/08/18 22:30 Urine Protein 30 mg/dL (Neg-Trace) H 05/08/18 22:30 Urine Glucose (UA) 500 or greater mg/dL (Negative) 05/08/18 22:30 Urine Ketones Trace mg/dL (Negative) H 05/08/18 22:30 Urine Occult Blood Moderate (Negative) H 05/08/18 22:30 Urine Nitrate Negative (Negative) 05/08/18 22:30 Urine Bilirubin Negative (Negative) 05/08/18 22:30 Urine Urobilinogen Less than 2 mg/dL (Less than 2) 05/08/18 22:30 Ur Leukocyte Esterase Negative (Negative) 05/08/18 22:30 Urine RBC 5 /hpf (0-3) H 05/08/18 22:30 Urine WBC 6 /hpf (0-5) H 05/08/18 22:30 Ur Squamous Epith Cells <1 /hpf (0-5) 05/08/18 22:30 Urine Bacteria Occasional /hpf (None) H 05/08/18 22:30 Micro UA Comment Cath-culture ind 05/08/18 22:30 Ur Microscopic Review Not Reportable 05/08/18 22:30 Urine Culture Comments Cath-cult indicated 05/08/18 22:30 Nasal Screen MRSA (PCR) [place] detected (Negative) 05/08/18 22:30 Vancomycin Trough 14.6 mcg/mL (5.0-10.0) H 05/16/18 11:05 Urine Opiates Screen Pos (Neg) H 05/09/18 10:55 Ur Barbiturates Screen Neg (Neg) 05/09/18 10:55 Phenytoin 13.1 mcg/mL (10.0-20.0) 05/17/18 06:37 Ur Amphetamines Screen Neg (Neg) 05/09/18 10:55 Phenobarbital 10.2 mcg/mL (15.0-40.0) L 05/17/18 06:37 U Benzodiazepines Scrn Pos (Neg) H 05/09/18 10:55 Urine Cocaine Screen Neg (Neg) 05/09/18 10:55 U Cannabinoids Screen Neg (Neg) 05/09/18 10:55 Hepatitis A IgM Ab Nonreactive (Nonreactive) 05/09/18 14:58 Hep Bs Antigen Nonreactive (Nonreactive) 05/09/18 14:58 Hep B Core IgM Ab Nonreactive (Nonreactive) 05/09/18 14:58 Hep C IgG Ab Nonreactive (Nonreactive) 05/09/18 14:58 Blood Type O Positive 05/09/18 01:10 Blood Type Recheck Required 05/09/18 01:10 Antibody Screen Negative 05/09/18 01:[address] 05/08/18 20:43 CONCLUSION: 1. Punctate hyperdensity characteristic of hemorrhage in the right mid araseli. 2. No acute findings in the supratentorial brain. . Cervical Spine CT 05/08/18 20:44 CONCLUSION: 1. Moderate degenerative changes at C6-7. 2. Otherwise negative exam. Head MRI 05/10/18 00:00 CONCLUSION: 1. No evidence of acute hemorrhage within the right araseli. 2. No acute infarct, acute hemorrhage, midline shift or extra-axial fluid collection. 3. Mucosal thickening involving the left maxillary sinus, bilateral anterior ethmoid air cells and bilateral sphenoid sinuses. 4. Some fluid within the mastoid air cells bilaterally. Head MRA 05/10/18 06:52 CONCLUSION: 1. Negative MRA [place] ([place]) non contrast. Chest X-Ray 05/17/18 04:00 CONCLUSION: Support apparatus unchanged. Stable basilar airspace pleural effusions. Objective Remarks: GENERAL: 63-year-old male currently orotracheally intubated and sedated SKIN: cool and dry. HEAD: Atraumatic. Normocephalic. EYES: Pupils equal and round and minimally reactive bilaterally. No scleral icterus. No injection or drainage. ENT: No nasal bleeding or discharge. Mucous membranes pink and moist. NECK: Trachea midline. No JVD. Left IJ is clean dry and intact. day 4 CARDIOVASCULAR: RRR S1, S2. No S4. RESPIRATORY: No accessory muscle use. Clear to auscultation. Breath sounds equal bilaterally. GASTROINTESTINAL: Abdomen soft, non-tender, nondistended. Hepatic and splenic margins not palpable. Normal active bowel sounds MUSCULOSKELETAL: Extremities without clubbing, cyanosis, or edema. No obvious deformities. NEUROLOGICAL: GCS 11T. Alert and responsive to commandsPrecedex infusion restarted secondary to extreme agitation on 1.2 mcg /kg/hr. Spontaneously moving extremities x4. positive gag and cough and minimal corneal reflex. Still noted excessive yawning. Assessment and Plan - Assessment and Plan Plan: Neuro/Psych: Rule out anoxic encephalopathy Hyperammonemia Original CT brain on admission revealed possible 3 mm mid right araseli hemorrhage. Currently propofol infusion at 30 mcgs for sedation/analgesia while intubated, to maintain ventilator synchrony. Daily sedation vacation Goal of RASS -2 Cold cool Catheter removed 05/12. Neurology/Dr. Connor following, discussed plan for continued evaluation with discontinuation of all sedation EEG completed 05/09 with no epileptic activity. Repeat 05/12 with sharp activity. Will repeat 05/13. Currently on fosphenytoin IV 3 times daily and levetiracetam 500 mg IV twice daily and phenobarbital 60 mg 3 times daily. 05/16 Dilantin level noted therapeutic. Phenobarbital subtherapeutic MRI brain revealed left maxillary, bilateral ethmoid and sphenoid sinusitis. MRA brain revealed normal examination. Continue scheduled dosing lactulose twice daily Trend ammonia level GCS 11T-responsive to commands CV Out of hospital cardiac arrest/V. fib Elevated troponin Acute systolic heart failure ejection fraction 30-35% Possible anterior mitral valve ruptured chordae tendon a Currently on amiodarone drip at 0.5 mg/min discontinued 05/13 transitioned to p.o. Cardiology consultation/Dr. Rayos. Melendez for carvedilol 3.125 mg twice daily, start aspirin 81 mg daily and heparin drip that he rates an hour. 05/12 Added enalapril 20 mg daily and atorvastatin 10 mg at night since MRI brain revealed no hemorrhage Originally not candidate for cardiac catheterization due to pontine hemorrhage right mid araseli. This is been changed with MRI/A Troponin elevated 2.86 this a.m. currently elevated at 3.2. Follow until downward trend 2D echocardiogram revealed EF 30-35%. Ruptured chordae tendon possible involving mitral valve. 05/14 carvedilol reinitiated, continues on heparin infusion Resp: Acute respiratory failurelikely aspiration with right lower lobe infiltrate and altered mental status PRVC ventilation Ventilator bundle Continue CPAP trial Head of bed at 30 degrees Albuterol/ipratropium aerosols every 4 hours with albuterol aerosols every 2 hours as needed dyspnea Chest x-ray revealed bilateral pulmonary opacities and small bilateral pleural effusions, still unchanged GI: Vital 1.5 goal 60 cc output currently 60 cc an hour Pantoprazole for GI prophylaxis Docusate serum/senna 1 tablet twice daily for bowel regimen : [place] catheter placed for accurate I's and O's in a critical patient currentl Endo: Acute hyperglycemia Low TSH Sliding scale insulin with Accu-Cheks to maintain euglycemia. On insulin detemir 4 units twice daily TSH was 0.285. Normal free T4/total T3. Recheck 4-6-week HEME: Leukocytosis-resolved Monitor CBC daily. Follow trends. Leukocytosis downtrending continue to follow CBC de-escalation of antibiotics upon speciation of culture result Renal Creatinine currently within normal limits Acute I's and O's Heme monitor urine output: ID: Monitor for signs and symptomatology infection Patient with aspiration. Obtain sputum culture-Vanc and Zosyn (day 5) FEN: Replace electrolytes as clinically indicated Discontinue IV fluid MSK: PT evaluate and treat Access -Left CVL day 5 Prophylaxis - -GI pantoprazole - -DVT -SCD/heparin drip Level 3 followup
--- NOTE | 2018-05-17 12:30 | P.PN ---
Subjective Interval history: 05/17: Neurological status. Motor strength 5/5 in the knees x4. Patient visually tracking nodding head to yes and no questions. Extensive discussion/ conference with Artur decision made to change CODE STATUS to full code. Continue all aggressive measures follow-up with cardiology regarding possible cardiac catheterization. Evaluation by neurology. Patient continues on CPAP trials with plan for SBT possibly tonight or in a.m. for further assessment. All questions answered. Physical Exam Vital signs: Vital Signs 05/16/18 12:46 05/16/18 13:00 05/16/18 13:15 Temperature 100.4 F H 100.4 F H 100.4 F H Pulse Rate 83 84 80 Respiratory Rate Blood Pressure 108/58 L 102/53 L 98/52 L Pulse Oximetry 95 96 95 05/16/18 13:30 05/16/18 13:45 05/16/18 14:00 Temperature 100.2 F H 100.2 F H 100.2 F H Pulse Rate 81 78 81 Respiratory Rate Blood Pressure 95/52 L 103/57 L Pulse Oximetry 74 L 100 94 L 05/16/18 14:03 05/16/18 14:15 05/16/18 14:30 Temperature 100.2 F H 100.4 F H 100.2 F H Pulse Rate 77 76 78 Respiratory Rate Blood Pressure 103/55 L 101/55 L 97/54 L Pulse Oximetry 96 96 96 05/16/18 14:45 05/16/18 15:00 05/16/18 15:15 Temperature 100.2 F H 100.2 F H 100.2 F H Pulse Rate 75 75 77 Respiratory Rate Blood Pressure 96/54 L 97/56 L 105/60 Pulse Oximetry 95 96 95 05/16/18 15:17 05/16/18 15:30 05/16/18 15:45 Temperature 100.2 F H 100.4 F H Pulse Rate 78 75 78 Respiratory Rate 16 Blood Pressure 100/60 102/57 L Pulse Oximetry 97 96 95 05/16/18 16:00 05/16/18 16:15 05/16/18 16:30 Temperature 100.4 F H 100.6 F H 100.6 F H Pulse Rate 76 75 74 Respiratory Rate Blood Pressure 102/56 L 99/56 L 103/57 L Pulse Oximetry 96 94 L 97 05/16/18 16:46 05/16/18 17:00 05/16/18 20:00 Temperature 100.4 F H 100.6 F H 101.3 F H Pulse Rate 75 74 75 Respiratory Rate Blood Pressure 87/54 L 89/52 L 116/62 Pulse Oximetry 99 96 95 05/16/18 20:20 05/16/18 23:56 05/17/18 00:00 Temperature 101.5 F H Pulse Rate 72 Respiratory Rate 26 H 20 Blood Pressure 104/56 L Pulse Oximetry 95 94 L 94 L 05/17/18 04:00 05/17/18 07:44 05/17/18 08:00 Temperature 100.8 F H 100.4 F H Pulse Rate 73 71 Respiratory Rate 24 Blood Pressure 108/57 L 112/60 Pulse Oximetry 97 98 05/17/18 09:00 Temperature Pulse Rate 71 Respiratory Rate Blood Pressure Pulse Oximetry Intake & Output 05/16/18 05/17/18 05/17/18 18:59 06:59 18:59 Intake Total 1862.5 / 1862.5 1854.5 / 1854.5 250 / 250 Output Total 2700 / 2700 650 / 650 Balance -837.5 / -837.5 1204.5 / 1204.5 250 / 250 Weight 81.9 kg Intake: IV 1280.5 / 1280.5 1134.5 / 1134.5 250 / 250 Precedex Inj 1,000 MCG In NS 250 / 250 Inj 240 ML @ 0.2 MCG/KG/HR 4.05 mls/hr IV.CONT TITRATE PRN Rx# :[id number] Precedex Inj 200 MCG In NS Inj 156 / 156 208 / 208 50 ML @ 0.2 MCG/KG/HR 4.21 mls/ hr IV.CONT TITRATE PRN Rx#: [id number] Heparin/D5W 25,000 U/250 mL 25, 250 / 250 000 unit In 250 ml @ Per Protocol IV.CONT TITRATE PRN Rx #:[id number] Cerebyx Inj 100 MGPE In NS Inj 52 / 52 104 / 104 50 ML @ 208 mls/hr IV.SIG Q8HR [facility] Rx#:[id number] Zosyn 4.5 GM Premix 4.5 gm In 200 / 200 200 / 200 100 ml @ 200 mls/hr IV.SIG Q6H [facility] Rx#:[id number] Vancomycin Inj 1,750 MG In NS 517.5 / 517.5 517.5 / 517.5 Inj 500 ML @ 250 mls/hr IV.SIG Q12H [facility] Rx#:[id number] Keppra Inj 500 MG In NS Inj 100 105 / 105 105 / 105 ML @ 400 mls/hr IV.SIG Q12H [facility] Rx#:[id number] Tube Feeding 582 / 582 620 / 620 Water Bolus Amount 100 / 100 Output: Urine Amount (Catheter) 2700 / 2700 650 / 650 Indwelling Temp Sensing 2700 / 2700 650 / 650 Catheter Other: Date of Last Bowel Movement 05/14/18 05/17/18 05/17/18 # Bowel Movements 1 - Urinary Catheter Management Indwelling Temp Sensing Catheter Cath placed during this visit: yes Reason for continuing: Terminally ill/Comfort care Insertion date: 05/08/18 Insertion time: 22:40 Results - Labs CBC & Chem 7: 05/17/18 06:37 05/17/18 06:37 Laboratory Results - last 24 hr 05/16/18 05/16/18 05/16/18 11:05 11:05 16:39 WBC RBC Hgb Hct MCV MCH MCHC RDW Plt Count MPV Neut % (Auto) Lymph % (Auto) Walsh % (Auto) Eos % (Auto) Baso % (Auto) Neut # (Auto) Lymph # (Auto) Walsh # (Auto) Eos # (Auto) Baso # (Auto) WBC Differential Differential Comment APTT 30.8 Sodium Potassium Chloride Carbon Dioxide Anion Gap BUN Creatinine Estimated GFR POC Glucose 187 H Random Glucose Calcium Phosphorus Magnesium Ammonia Vancomycin Trough 14.6 H Phenytoin Phenobarbital 05/16/18 05/16/18 05/16/18 18:30 20:08 23:35 WBC RBC Hgb Hct MCV MCH MCHC RDW Plt Count MPV Neut % (Auto) Lymph % (Auto) Walsh % (Auto) Eos % (Auto) Baso % (Auto) Neut # (Auto) Lymph # (Auto) Walsh # (Auto) Eos # (Auto) Baso # (Auto) WBC Differential Differential Comment APTT 40.8 H D Sodium Potassium Chloride Carbon Dioxide Anion Gap BUN Creatinine Estimated GFR POC Glucose 254 H 284 H Random Glucose Calcium Phosphorus Magnesium Ammonia Vancomycin Trough Phenytoin Phenobarbital 05/17/18 05/17/18 05/17/18 01:00 04:42 06:37 WBC 11.2 H RBC 3.90 L Hgb 11.0 L Hct 33.3 L MCV 85.6 MCH 28.4 MCHC 33.1 RDW 14.6 Plt Count 194 MPV 9.3 Neut % (Auto) 80.3 H Lymph % (Auto) 9.2 Walsh % (Auto) 6.5 Eos % (Auto) 3.5 Baso % (Auto) 0.5 Neut # (Auto) 9.0 H Lymph # (Auto) 1.0 Walsh # (Auto) 0.7 Eos # (Auto) 0.4 Baso # (Auto) 0.1 WBC Differential . Differential Comment Auto diff final APTT 41.3 H Sodium Potassium Chloride Carbon Dioxide Anion Gap BUN Creatinine Estimated GFR POC Glucose 247 H Random Glucose Calcium Phosphorus Magnesium Ammonia Vancomycin Trough Phenytoin Phenobarbital 05/17/18 05/17/18 05/17/18 06:37 06:37 07:28 WBC RBC Hgb Hct MCV MCH MCHC RDW Plt Count MPV Neut % (Auto) Lymph % (Auto) Walsh % (Auto) Eos % (Auto) Baso % (Auto) Neut # (Auto) Lymph # (Auto) Walsh # (Auto) Eos # (Auto) Baso # (Auto) WBC Differential Differential Comment APTT Sodium 143 Potassium 3.8 Chloride 108 H Carbon Dioxide 25.3 Anion Gap 10 BUN 29 H Creatinine 1.35 H Estimated GFR 53 L POC Glucose 236 H Random Glucose 266 H Calcium 8.2 L Phosphorus 3.7 Magnesium 2.2 Ammonia 45 H Vancomycin Trough Phenytoin 13.1 Phenobarbital 10.2 L 05/17/18 12:24 WBC RBC Hgb Hct MCV MCH MCHC RDW Plt Count MPV Neut % (Auto) Lymph % (Auto) Walsh % (Auto) Eos % (Auto) Baso % (Auto) Neut # (Auto) Lymph # (Auto) Walsh # (Auto) Eos # (Auto) Baso # (Auto) WBC Differential Differential Comment APTT Sodium Potassium Chloride Carbon Dioxide Anion Gap BUN Creatinine Estimated GFR POC Glucose 285 H Random Glucose Calcium Phosphorus Magnesium Ammonia Vancomycin Trough Phenytoin Phenobarbital - Imaging Impressions Chest X-Ray 05/17/18 04:00 CONCLUSION: Support apparatus unchanged. Stable basilar airspace pleural effusions.
[2018-05-17] MEDS: Pantoprazole Inj 40 MG Vial IV.PUSH SCH (12:32)
[2018-05-17] MEDS: Heparin Drip 25,000 UNIT/250 ML BAG IV.CONT PRN (17:40)
[2018-05-17] MEDS: Haloperidol Inj 5 MG/ML Ampul IV.PUSH PRN (19:45)
[2018-05-18] MEDS: Insulin NovoLOG Aspart Correctional Sugar Inj SQ SCH ×6 (01:06→21:40)
[2018-05-18] MEDS: Haloperidol Inj 5 MG/ML Ampul IV.PUSH PRN (01:35)
[2018-05-18] MEDS: Dexmedetomidine Inj 1,000 MCG in Sodium Chlor 0.9% Inj 240 ML IV.CONT PRN ×3 (02:00→21:41)
[2018-05-18] MEDS: Oral Hygiene Kit OROPHARYNG SCH ×3 (05:17→17:45)
[2018-05-18] MEDS: Piperacil/Tazo 4.5 GM Premix 4.5 GM/100 ML BAG IV.SIG SCH ×2 (05:17→10:14)
[2018-05-18] MEDS: Artificial Tears Opth Drops 15 ML Bottle EACH EYE SCH ×2 (05:17→13:10)
[2018-05-18] MEDS: Fosphenytoin Inj 100 MGPE in Sodium Chlor 0.9% Inj 50 ML IV.SIG SCH (06:28)
[2018-05-18] MEDS: Chlorhexidine 0.12% Oral Kit 15 ML UDC OROPHARYNG SCH (07:59)
[2018-05-18] MEDS: Polyethylene Glycol 3350 17 GM Packet PO SCH ×2 (08:03→22:31)
[2018-05-18] MEDS: Insulin Detemir Inj 1,000 UNIT/10 ML Vial SQ SCH ×2 (08:03→22:31)
[2018-05-18] MEDS: Amiodarone 200 MG Tablet PO SCH (08:04)
[2018-05-18] MEDS: Senna/Docusate Sodium 8.6/50 MG Tablet PO SCH ×2 (08:04→22:32)
[2018-05-18 09:26] LABS: Baso # (Auto) 0.1 th/mm3 (0.0-0.2); Baso % (Auto) 0.5 % (0.0-2.0); Eos # (Auto) 0.5 th/mm3 (0.0-0.4); Eos % (Auto) 3.6 % (0.0-4.0); Hematocrit 29.4 % (39.0-51.0); Hemoglobin 9.7 gm/dL (13.0-17.0); Lymph # (Auto) 0.8 th/mm3 (1.0-4.8); Mean Corpuscular HGB Conc 33.1 % (32.0-36.0); Mean Corpuscular Hemoglobin 28.7 pg (27.0-34.0); Mean Corpuscular Volume 86.9 fL (80.0-100.0); Mean Platelet Volume 9.4 fL (7.0-11.0); Mono # (Auto) 0.7 th/mm3 (0.0-0.9); Mono % (Auto) 5.2 % (0.0-8.0); Neut # (Auto) 11.1 th/mm3 (1.8-7.7); Neut % (Auto) 84.7 % (16.0-70.0); Platelet Count 187 th/mm3 (150-450); Red Blood Count 3.38 mil/mm3 (4.50-5.90); Red Cell Distribution Width 15.1 % (11.6-17.2); White Blood Count 13.1 th/mm3 (4.0-11.0)
--- NOTE | 2018-05-18 09:36 | P.PNCC ---
Subjective Subjective Remarks/Hospital Course: 63-year-old male presents to emergency department intubated after VF/VT arrest. He had to be defibrillated twice in the field, afterwards clear STEMI criteria was called by EV[facility]. Apparently heard a collapse in the next room found the patient unresponsive called 9 1. Apparently total downtime was about 10 minutes and had a very quick Rask. Blood pressure was little low and dopamine drip was started in the field. Patient also had amiodarone started in the field. Initially the STEMI alert was called brain demonstrated punctate hyperdensity characteristic of hemorrhage in the right mid araseli in the STEMI alert was canceled. The patient has been admitted to ICU for hypothermia protocol treatment post cardiac arrest. 05/09: Discussed with at bedside. Currently on target temperature monitoring. EEG performed. Replacing potassium and phosphorus this a.m. 05/10: Currently temperature is a 97. Has been rewarmed from target temperature monitoring. EEG revealed no epileptic activity. Replace potassium currently. MRI brain revealed no signs of hemorrhage. Will start on heparin drip ME protocol 900 units an hour and provide aspirin. Carvedilol started by cardiology during the a.m. 05/11: Phosphorus being replaced. Weaning off sedation currently. Rewarmed to 37 C. No problem. Tolerating tube feeds currently at 30 cc now. 05/12: Currently resting in bed. New central has been placed and targeted temperature monitoring Quatro catheter has been removed. Seizures overnight. Currently on fosphenytoin and levetiracetam. Remains on midazolam drip. Updated at bedside. 05/13: Low-grade temperature during the night continues greater than 99.0., Noted blood cultures negative growth to date. Remains encephalopathic .EEG revealed continued epileptiform activity. Patient noted phenobarbital level this a.m. subtherapeutic at 3.1. Noted persistent leukocytosis, bilateral pulmonary opacities, sputum culture pending. Palliative care has been consulted. 05/14: Sedative discontinued early this a.m.. Noted spontaneous eye opening with neurologist Dr. Connor at the bedside, not following any commands. EEG revealed a few spikes, patient continues on anticonvulsant regimen and seizure precautions. Noted hypertension systolic blood pressure greater than 170 Vasotec reinitiated. discussed findings with Dr. Connor at bedside we will continue to monitor discontinue all sedatives and continually evaluate neurological status. Plan this afternoon to meet with patient's Mrs. Siddiqui and palliative care. 05/15: Off all sedation noted spontaneous movement but not following any commands with excessive yawning and grimacing noted. Patient placed back on propofol low-dose infusion. Palliative care conference with patient's reveal patient to be placed in a no CPR CODE STATUS at this time. Discussion with Dr. Connor, neurology yesterday we will continue to monitor and evaluate optimizing care and continued evaluation at this time. No change in respiratory requirements however chest x-ray noted bilateral pleural effusions IV infusions decreased patient now normotensive carvedilol reinitiated. 05/16: Afebrile. Per RN yesterday the patient followed commands with left upper extremity. Upon my evaluation paid patient noted to be off sedation spontaneous eye opening and tracking. Excessive yawning and grimacing also noted. Propofol has been discontinued Precedex to maintain ventilator synchrony if required. Patient continues on heparin infusion. Leukocytosis has been resolved. Review of EEG per neurology only a few sharp spikes phenobarbital has been discontinued. 05/17: Patient remains on Precedex infusion @ 1.2 mcg/kg/hr. Per report the patient was extremely agitated early this a.m.. Upon evaluation of the patient , he is responding to commands squeezing hands bilaterally, and also bilateral movement of lower extremities. Patient is nodding head to yes and no questions , and attempting to talk. Subjective: 05/18: Afebrile. Remains on dexmedetomidine drip at 0.7 mg/kg/h. On low-dose propofol due to agitation. Arousable and does follow commands. Tolerating tube feeding. Currently normal sinus rhythm. Objective Vital Signs / I&O: Vital Signs 05/17/18 12:00 05/17/18 15:27 05/17/18 16:00 Temperature 100.9 F H 101.1 F H Pulse Rate 76 71 Respiratory Rate 12 19 14 Blood Pressure 109/58 L 93/55 L Pulse Oximetry 97 98 96 05/17/18 17:00 05/17/18 18:00 05/17/18 19:00 Temperature Pulse Rate 71 73 75 Respiratory Rate Blood Pressure 100/59 L 97/52 L 108/58 L Pulse Oximetry 05/17/18 19:37 05/17/18 19:38 05/17/18 20:00 Temperature 101.1 F H Pulse Rate 71 72 Respiratory Rate 15 15 Blood Pressure 107/58 L Pulse Oximetry 95 96 05/17/18 21:00 05/17/18 22:00 05/17/18 23:00 Temperature 99.5 F 100.8 F H Pulse Rate 71 72 69 Respiratory Rate Blood Pressure 106/58 L 107/59 L 103/55 L Pulse Oximetry 96 95 97 05/17/18 23:56 05/18/18 00:00 05/18/18 01:00 Temperature 100.4 F H 100.4 F H Pulse Rate 67 68 Respiratory Rate 17 Blood Pressure 104/55 L 105/56 L Pulse Oximetry 97 97 96 05/18/18 01:35 05/18/18 02:00 05/18/18 03:00 Temperature 99.7 F H Pulse Rate 74 70 Respiratory Rate 24 Blood Pressure 105/59 L 107/59 L Pulse Oximetry 98 96 98 05/18/18 03:45 05/18/18 04:00 05/18/18 05:00 Temperature 97.7 F Pulse Rate 68 68 Respiratory Rate 16 Blood Pressure 108/56 L 106/58 L Pulse Oximetry 94 L 96 95 05/18/18 06:00 05/18/18 07:00 05/18/18 08:11 Temperature Pulse Rate 68 68 Respiratory Rate 16 Blood Pressure 105/59 L 100/57 L Pulse Oximetry 91 L 93 L 95 Intake & Output 05/17/18 05/18/18 05/18/18 18:59 06:59 18:59 Intake Total 2439.5 / 2439.5 1463 / 1463 Output Total 795 / 795 Balance 2439.5 / 2439.5 668 / 668 Weight 84.4 kg Intake: IV 1624.5 / 1624.5 659 / 659 Precedex Inj 1,000 MCG In NS 500 / 500 250 / 250 Inj 240 ML @ 0.2 MCG/KG/HR 4.05 mls/hr IV.CONT TITRATE PRN Rx# :[id number] Heparin/D5W 25,000 U/250 mL 25, 250 / 250 000 unit In 250 ml @ Per Protocol IV.CONT TITRATE PRN Rx #:[id number] Cerebyx Inj 100 MGPE In NS Inj 52 / 52 104 / 104 50 ML @ 208 mls/hr IV.SIG Q8HR [facility] Rx#:[id number] Zosyn 4.5 GM Premix 4.5 gm In 200 / 200 200 / 200 100 ml @ 200 mls/hr IV.SIG Q6H [facility] Rx#:[id number] Vancomycin Inj 1,750 MG In NS 517.5 / 517.5 Inj 500 ML @ 250 mls/hr IV.SIG Q12H [facility] Rx#:[id number] Keppra Inj 500 MG In NS Inj 100 105 / 105 105 / 105 ML @ 400 mls/hr IV.SIG Q12H [facility] Rx#:[id number] Tube Feeding 755 / 755 744 / 744 Tube Irrigant 60 / 60 Water Bolus Amount 60 / 60 Output: Urine Amount (Catheter) 795 / 795 Indwelling Temp Sensing 795 / 795 Catheter Other: Date of Last Bowel Movement 05/17/18 05/17/18 # Bowel Movements 3 Result Diagrams: 05/18/18 09:05 05/18/18 09:05 Other Results: Microbiology 05/13/18 11:50 Sputum - Endotracheal Gram Stain - Final 05/13/18 11:50 Sputum - Endotracheal Sputum Culture - Final S. aureus MRSA 05/09/18 16:00 Blood - Line Aerobic Blood Culture - Final No growth in 5 days 05/09/18 16:00 Blood - Line Anaerobic Blood Culture - Final No growth in 5 days 05/08/18 21:38 Blood - Peripheral Aerobic Blood Culture - Final No growth in 5 days 05/08/18 21:38 Blood - Peripheral Anaerobic Blood Culture - Final No growth in 5 days 05/08/18 21:33 Blood - Peripheral Aerobic Blood Culture - Final No growth in 5 days 05/08/18 21:33 Blood - Peripheral Anaerobic Blood Culture - Final No growth in 5 days 05/08/18 22:30 Catheterized Urine Urine Culture - Final No growth in 48 hours Imaging: Chest X-Ray 05/08/18 20:43 CONCLUSION: 1. ET tube in good position. 2. Gastric tube side-port is in the lower chest and the tube needs to be advanced at least [address] 05/08/18 20:43 CONCLUSION: 1. Punctate hyperdensity characteristic of hemorrhage in the right mid araseli. 2. No acute findings in the supratentorial brain. . Cervical Spine CT 05/08/18 20:44 CONCLUSION: 1. Moderate degenerative changes at C6-7. 2. Otherwise negative exam. Head MRI 05/10/18 00:00 CONCLUSION: 1. No evidence of acute hemorrhage within the right araseli. 2. No acute infarct, acute hemorrhage, midline shift or extra-axial fluid collection. 3. Mucosal thickening involving the left maxillary sinus, bilateral anterior ethmoid air cells and bilateral sphenoid sinuses. 4. Some fluid within the mastoid air cells bilaterally. Chest X-Ray 05/10/18 06:00 CONCLUSION: Infiltrating the medial right lower lobe or right middle lobe. Infiltrate is increased from the previous study Head MRA 05/10/18 06:52 CONCLUSION: 1. Negative MRA [place] ([place] [facility] [place]) non contrast. Chest X-Ray 05/11/18 06:00 CONCLUSION: Bilateral pleural effusions right greater than left. ET tube in good position. Chest X-Ray 05/12/18 06:00 CONCLUSION: No change in bilateral opacity likely representing a combination of mild pulmonary edema/pleural effusions. Chest X-Ray 05/12/18 11:03 CONCLUSION: 1. Central line without pneumothorax. 2. Unchanged bilateral pleural effusions and bibasilar pulmonary infiltrates. Chest X-Ray 05/13/18 06:00 CONCLUSION: No significant interval change with persistent bilateral pulmonary parenchymal opacity and small bilateral pleural effusions. Chest X-Ray 05/15/18 00:00 CONCLUSION: No significant interval change with persistent bilateral pulmonary parenchymal opacity and bilateral pleural effusions. Chest X-Ray 05/17/18 04:00 CONCLUSION: Support apparatus unchanged. Stable basilar airspace pleural effusions. Objective Remarks: GENERAL: 63-year-old male currently orotracheally intubated and sedated SKIN: cool and dry. HEAD: Atraumatic. Normocephalic. EYES: Pupils equal and round and minimally reactive bilaterally. No scleral icterus. No injection or drainage. ENT: No nasal bleeding or discharge. Mucous membranes pink and moist. NECK: Trachea midline. No JVD. Left IJ is clean dry and intact. CARDIOVASCULAR: RRR S1, S2. No S4. RESPIRATORY: No accessory muscle use. Clear to auscultation. Breath sounds equal bilaterally. GASTROINTESTINAL: Abdomen soft, non-tender, nondistended. Hepatic and splenic margins not palpable. Normal active bowel sounds MUSCULOSKELETAL: Extremities without clubbing, cyanosis, or edema. No obvious deformities. NEUROLOGICAL: GCS 11T. Alert and responsive to commands moves all 4 extremities x4. Assessment and Plan - Assessment and Plan Plan: Neuro/Psych: Rule out anoxic encephalopathy Original CT brain on admission revealed possible 3 mm mid right araseli hemorrhage. Currently propofol infusion at 5 mcgs per kilogram per minute/dexmedetomidine drip at 0.7 mg/kg/h for sedation/analgesia while intubated, to maintain ventilator synchrony. Daily sedation vacation Goal of RASS -0 Neurology/Dr. Connor following EEG completed 05/09 with no epileptic activity. Repeat 05/12 with sharp activity. Currently on fosphenytoin IV 100 mg 3 times daily and levetiracetam 500 mg IV twice daily 05/16 Dilantin level noted therapeutic. MRI brain revealed left maxillary, bilateral ethmoid and sphenoid sinusitis. MRA brain revealed normal examination. Continue scheduled dosing lactulose 30 cc twice daily Trend ammonia level GCS 11T-responsive to commands CV Out of hospital cardiac arrest/V. 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 Rayos. Melendez for carvedilol 3.125 mg twice daily, start aspirin 81 mg daily. Discontinued heparin drip. 05/12 Added enalapril 2.5 mg daily and atorvastatin 10 mg at night since MRI brain revealed no hemorrhage disContinue enalapril 2.5 mg daily in light of acute kidney injury Originally not candidate for cardiac catheterization due to pontine hemorrhage right mid araseli. This is been changed with MRI/A 2D echocardiogram revealed EF 30-35%. Ruptured chordae tendon possible involving mitral valve. Resp: Acute respiratory failurelikely aspiration with right lower lobe infiltrate and altered mental status PRVC ventilation Ventilator bundle Continue CPAP trial Head of bed at 30 degrees Albuterol/ipratropium aerosols every 4 hours with albuterol aerosols every 2 hours as needed dyspnea Chest x-ray revealed bilateral pulmonary opacities and small bilateral pleural effusions, still unchanged GI: Hyperammonia Vital 1.5 goal 60 cc output currently 60 cc an hour Pantoprazole for GI prophylaxis Docusate serum/senna 1 tablet twice daily for bowel regimen with lactulose 30 cc twice daily : Orellana catheter placed for accurate I's and O's in a critical patient currentl Endo: Acute hyperglycemia Low TSH Sliding scale insulin with Accu-Cheks to maintain euglycemia. On insulin detemir 4 units twice daily TSH was 0.285. Normal free T4/total T3. Recheck 4-6-week HEME: Leukocytosis Normocytic anemia Monitor CBC daily. Follow trends. No indication for transfusion of blood products at this time Renal Acute kidney injury Creatinine currently within normal limits Acute I's and O's monitor urine output Avoid nephrotoxic medications. Discontinue enalapril. Discontinued vancomycin. Continue furosemide Check renal ultrasound/urine eosinophils and sodium and creatinine. ID: MRSA sputum positive Monitor for signs and symptomatology infection Patient with aspiration. Discontinued vancomycin and piperacillin/tazobactam. Completed 7 days therapy. FEN: Replace electrolytes as clinically indicated Discontinue IV fluid MSK: PT evaluate and treat Access -Left CVL day 6 Prophylaxis - -GI pantoprazole - -DVT -SCD/heparin subcu Level 3 followup
[2018-05-18 09:42] LABS: Alanine Aminotransferase 42 U/L (12-78); Albumin 1.9 g/dL (3.4-5.0); Anion Gap 11 meq/L (5-15); Aspartate Aminotransferase 33 U/L (15-37); Blood Urea Nitrogen 51 mg/dL (7-18); Carbon Dioxide 27.4 meq/L (21.0-32.0); Chloride 106 meq/L (98-107); Glomerular Filtration Rate 19 mL/min (>89); Glucose,Random 213 mg/dL (74-106); Magnesium 2.6 mg/dL (1.5-2.5); Phosphorus 4.3 mg/dL (2.5-4.9); Sodium 144 meq/L (136-145)
[2018-05-18 09:44] LABS: Alkaline Phosphatase 105 U/L (45-117); Total Protein 5.6 g/dL (6.4-8.2)
[2018-05-18] MEDS ORDERED: Sodium Chlor 0.9% Inj 500 ML IV.SIG ONE (10:28)
[2018-05-18] MEDS: Propofol 1000 mg/100 ml Inj 1,000 MG/100 ML BOTTLE IV.CONT PRN ×2 (11:37→21:41)
[2018-05-18 11:54] LABS: Creatinine,Urine Random 59 mg/dL (27-300); Sodium,Urine Random 29 meq/L
[2018-05-18] MEDS: Heparin - SQ 10,000 UNITS/ML Vial SQ SCH ×2 (13:10→22:31)
[2018-05-18] MEDS: Pantoprazole Inj 40 MG Vial IV.PUSH SCH (13:10)
--- NOTE | 2018-05-18 13:55 | US ---
EXAM DATE: 05/18/2018 1:52 PM EST AGE/SEX: 63 years / Male INDICATIONS: Increased lab values. CLINICAL DATA: This is the patient's initial encounter. Patient reports that signs and symptoms have been present for 1 day and indicates a pain score of 0/10. MEDICAL/SURGICAL HISTORY: . MRSA. . Arthroscopy of both knees. COMPARISON: . MEASUREMENTS: Right Kidney:__10.5 x 5.5 x 5.1 cm Left Kidney:__10.4 x 5.8 x 5.7 cm FINDINGS: Right Kidney: Normal echotexture and cortical thickness. No mass or hydronephrosis. Left Kidney: Normal echotexture and cortical thickness. No mass or hydronephrosis. Bladder: Orellana catheter is present. Bladder decompressed. Other: None. CONCLUSION: 1. Negative renal ultrasound examination. 2. The urinary bladder is decompressed by Orellana catheter. Electronically signed by: Tomy Poon MD 05/18/2018 1:53 PM EST
[2018-05-18 17:18] LABS: Calcium 8.2 mg/dL (8.5-10.1); Carbon Dioxide 27.2 meq/L (21.0-32.0); Potassium 4.1 meq/L (3.5-5.1)
[2018-05-18] MEDS ORDERED: levETIRAcetam 500 MG Tablet PO SCH (21:00)
[2018-05-18] MEDS: Mupirocin 2% Nasal Oint Topical Syringe EACH NARE SCH (22:31)
[2018-05-18] MEDS: Phenytoin Sodium 100 MG Capsule PO SCH (22:32)
--- NOTE | 2018-05-19 03:36 | XR ---
EXAM DATE: 05/19/2018 3:32 AM EST AGE/SEX: 63 years / Male INDICATIONS: Shortness of breath, possible pulmonary disease. CLINICAL DATA: This is the patient's subsequent encounter. Patient reports that signs and symptoms h ave been present for 2 weeks and indicates a pain score of Nonresponsive. MEDICAL/SURGICAL HISTORY: Seizures. Myocardial infarction. Non-responsive. COMPARISON: [facility], CHEST 1V SINGLE AP, 05/17/2018. . FINDINGS: Endotracheal tube tip about 1 cm above the fannie. NG seen entering stomach. Left central line in sup erior vena cava. Bilateral mostly basilar airspace disease and pleural effusions. No pneumothorax. CONCLUSION: Support apparatus unchanged and in satisfactory position. Basilar airspace disease and pleural effusi ons similar to May 17. Electronically signed by: Jay Silverio MD 05/19/2018 3:34 AM EST
[2018-05-19] MEDS: Dexmedetomidine Inj 1,000 MCG in Sodium Chlor 0.9% Inj 240 ML IV.CONT PRN (05:26)
[2018-05-19] MEDS: Insulin NovoLOG Aspart Correctional Sugar Inj SQ SCH ×7 (05:27→23:58)
[2018-05-19] MEDS: Heparin - SQ 10,000 UNITS/ML Vial SQ SCH ×3 (05:28→21:21)
[2018-05-19 05:44] LABS: Baso # (Auto) 0.1 th/mm3 (0.0-0.2); Baso % (Auto) 0.4 % (0.0-2.0); Eos # (Auto) 0.4 th/mm3 (0.0-0.4); Eos % (Auto) 3.1 % (0.0-4.0); Hematocrit 29.8 % (39.0-51.0); Hemoglobin 9.7 gm/dL (13.0-17.0); Lymph # (Auto) 0.8 th/mm3 (1.0-4.8); Lymph % (Auto) 5.6 % (9.0-44.0); Mean Corpuscular HGB Conc 32.5 % (32.0-36.0); Mean Corpuscular Hemoglobin 28.2 pg (27.0-34.0); Mean Corpuscular Volume 86.6 fL (80.0-100.0); Mean Platelet Volume 9.8 fL (7.0-11.0); Mono # (Auto) 0.7 th/mm3 (0.0-0.9); Mono % (Auto) 4.9 % (0.0-8.0); Neut # (Auto) 12.4 th/mm3 (1.8-7.7); Platelet Count 213 th/mm3 (150-450); Red Blood Count 3.43 mil/mm3 (4.50-5.90); Red Cell Distribution Width 15.1 % (11.6-17.2); White Blood Count 14.3 th/mm3 (4.0-11.0)
[2018-05-19 06:06] LABS: Alanine Aminotransferase 42 U/L (12-78); Albumin 1.9 g/dL (3.4-5.0); Alkaline Phosphatase 111 U/L (45-117); Anion Gap 9 meq/L (5-15); Aspartate Aminotransferase 26 U/L (15-37); Blood Urea Nitrogen 67 mg/dL (7-18); Carbon Dioxide 26.3 meq/L (21.0-32.0); Chloride 109 meq/L (98-107); Glomerular Filtration Rate 14 mL/min (>89); Glucose,Random 165 mg/dL (74-106); Magnesium 2.8 mg/dL (1.5-2.5); Phenytoin (Dilantin) 10.5 mcg/mL (10.0-20.0); Potassium 4.4 meq/L (3.5-5.1); Sodium 144 meq/L (136-145); Total Protein 5.6 g/dL (6.4-8.2); Vancomycin,Random 41.7 Comment
[2018-05-19] MEDS ORDERED: Sodium Chloride 0.45 % Inj 1,000 ML IV.SIG ONE (07:25)
[2018-05-19] MEDS: Artificial Tears Opth Drops 15 ML Bottle EACH EYE SCH ×4 (07:53→21:19)
[2018-05-19] MEDS: Chlorhexidine 0.12% Oral Kit 15 ML UDC OROPHARYNG SCH ×3 (07:53→21:16)
[2018-05-19] MEDS: Oral Hygiene Kit OROPHARYNG SCH ×4 (07:54→23:58)
--- NOTE | 2018-05-19 07:58 | P.PNCC ---
Subjective Subjective Remarks/Hospital Course: 63-year-old male presents to emergency department intubated after VF/VT arrest. He had to be defibrillated twice in the field, afterwards clear STEMI criteria was called by [facility]. Apparently heard a collapse in the next room found the patient unresponsive called 9 1. Apparently total downtime was about 10 minutes and had a very quick Rask. Blood pressure was little low and dopamine drip was started in the field. Patient also had amiodarone started in the field. Initially the STEMI alert was called brain demonstrated punctate hyperdensity characteristic of hemorrhage in the right mid araseli in the STEMI alert was canceled. The patient has been admitted to ICU for hypothermia protocol treatment post cardiac arrest. 05/09: Discussed with at bedside. Currently on target temperature monitoring. EEG performed. Replacing potassium and phosphorus this a.m. 05/10: Currently temperature is a 97. Has been rewarmed from target temperature monitoring. EEG revealed no epileptic activity. Replace potassium currently. MRI brain revealed no signs of hemorrhage. Will start on heparin drip RI protocol 900 units an hour and provide aspirin. Carvedilol started by cardiology during the a.m. 05/11: Phosphorus being replaced. Weaning off sedation currently. Rewarmed to 37 C. No problem. Tolerating tube feeds currently at 30 cc now. 05/12: Currently resting in bed. New central has been placed and targeted temperature monitoring Quatro catheter has been removed. Seizures overnight. Currently on fosphenytoin and levetiracetam. Remains on midazolam drip. Updated at bedside. 05/13: Low-grade temperature during the night continues greater than 99.0., Noted blood cultures negative growth to date. Remains encephalopathic .EEG revealed continued epileptiform activity. Patient noted phenobarbital level this a.m. subtherapeutic at 3.1. Noted persistent leukocytosis, bilateral pulmonary opacities, sputum culture pending. Palliative care has been consulted. 05/14: Sedative discontinued early this a.m.. Noted spontaneous eye opening with neurologist Dr. Connor at the bedside, not following any commands. EEG revealed a few spikes, patient continues on anticonvulsant regimen and seizure precautions. Noted hypertension systolic blood pressure greater than 170 Vasotec reinitiated. discussed findings with Dr. Connor at bedside we will continue to monitor discontinue all sedatives and continually evaluate neurological status. Plan this afternoon to meet with patient's Mrs. Siddiqui and palliative care. 05/15: Off all sedation noted spontaneous movement but not following any commands with excessive yawning and grimacing noted. Patient placed back on propofol low-dose infusion. Palliative care conference with patient's reveal patient to be placed in a no CPR CODE STATUS at this time. Discussion with Dr. Connor, neurology yesterday we will continue to monitor and evaluate optimizing care and continued evaluation at this time. No change in respiratory requirements however chest x-ray noted bilateral pleural effusions IV infusions decreased patient now normotensive carvedilol reinitiated. 05/16: Afebrile. Per RN yesterday the patient followed commands with left upper extremity. Upon my evaluation paid patient noted to be off sedation spontaneous eye opening and tracking. Excessive yawning and grimacing also noted. Propofol has been discontinued Precedex to maintain ventilator synchrony if required. Patient continues on heparin infusion. Leukocytosis has been resolved. Review of EEG per neurology only a few sharp spikes phenobarbital has been discontinued. 05/17: Patient remains on Precedex infusion @ 1.2 mcg/kg/hr. Per report the patient was extremely agitated early this a.m.. Upon evaluation of the patient , he is responding to commands squeezing hands bilaterally, and also bilateral movement of lower extremities. Patient is nodding head to yes and no questions , and attempting to talk. 05/18: Afebrile. Remains on dexmedetomidine drip at 0.7 mg/kg/h. On low-dose propofol due to agitation. Arousable and does follow commands. Tolerating tube feeding. Currently normal sinus rhythm. Subjective: 05/19: Creatinine currently 4.7. Arousable and quite agitated on the ventilator. Will attempt to wean off and hold tube feeds and attempt x-ray at 11 AM today. Noted elevated white blood count and persistent fevers. Pancultured today per Objective Vital Signs / I&O: Vital Signs 05/18/18 08:00 05/18/18 08:11 05/18/18 09:00 Temperature 98.6 F Pulse Rate 69 69 Respiratory Rate 16 Blood Pressure 102/57 L Pulse Oximetry 98 95 05/18/18 11:37 05/18/18 12:00 05/18/18 14:41 Temperature 98.6 F Pulse Rate 66 67 Respiratory Rate 21 24 23 Blood Pressure 101/54 L Pulse Oximetry 95 100 05/18/18 14:43 05/18/18 16:00 05/18/18 20:00 Temperature 100.8 F H 101.5 F H Pulse Rate 70 74 Respiratory Rate 25 H 23 Blood Pressure 97/52 L 102/57 L Pulse Oximetry 98 95 95 05/18/18 21:18 05/18/18 21:24 05/19/18 00:00 Temperature 101.5 F H Pulse Rate 76 74 Respiratory Rate 19 29 H 23 Blood Pressure 102/57 L Pulse Oximetry 95 95 05/19/18 00:33 05/19/18 03:17 05/19/18 04:00 Temperature 100 F H Pulse Rate 76 75 74 Respiratory Rate 18 16 23 Blood Pressure 110/59 L Pulse Oximetry 95 95 05/19/18 04:13 05/19/18 07:00 Temperature Pulse Rate 71 Respiratory Rate 18 27 H Blood Pressure Pulse Oximetry 94 L 96 Intake & Output 05/18/18 05/19/18 05/19/18 18:59 06:59 18:59 Intake Total 770.53 / 770.53 1484 / 1484 Output Total 450 / 450 1200 / 1200 Balance 320.53 / 320.53 284 / 284 Weight 84.9 kg Intake: IV 485.53 / 485.53 600 / 600 Precedex Inj 1,000 MCG In NS 250 / 250 500 / 500 Inj 240 ML @ 0.2 MCG/KG/HR 4.05 mls/hr IV.CONT TITRATE PRN Rx# :[id number] Heparin/D5W 25,000 U/250 mL 25, 35.53 / 35.53 000 unit In 250 ml @ Per Protocol IV.CONT TITRATE PRN Rx #:[id number] Diprivan 1000 mg/100 ml Inj 1, 100 / 100 100 / 100 000 mg In 100 ml @ 5 MCG/KG/MIN 2.449 mls/hr IV.CONT TITRATE PRN Rx#:[id number] Zosyn 4.5 GM Premix 4.5 gm In 100 / 100 100 ml @ 200 mls/hr IV.SIG Q6H JIM Rx#:[id number] Tube Feeding 285 / 285 389 / 389 Other 495 / 495 Output: Urine 450 / 450 1200 / 1200 Other: Date of Last Bowel Movement 05/18/18 05/19/18 # Incontinent Bowel Movements 3 Result Diagrams: 05/19/18 04:50 05/19/18 04:50 Other Results: Microbiology 05/13/18 11:50 Sputum - Endotracheal Gram Stain - Final 05/13/18 11:50 Sputum - Endotracheal Sputum Culture - Final S. aureus MRSA 05/09/18 16:00 Blood - Line Aerobic Blood Culture - Final No growth in 5 days 05/09/18 16:00 Blood - Line Anaerobic Blood Culture - Final No growth in 5 days 05/08/18 21:38 Blood - Peripheral Aerobic Blood Culture - Final No growth in 5 days 05/08/18 21:38 Blood - Peripheral Anaerobic Blood Culture - Final No growth in 5 days 05/08/18 21:33 Blood - Peripheral Aerobic Blood Culture - Final No growth in 5 days 05/08/18 21:33 Blood - Peripheral Anaerobic Blood Culture - Final No growth in 5 days 05/08/18 22:30 Catheterized Urine Urine Culture - Final No growth in 48 hours Imaging: Chest X-Ray 05/08/18 20:43 CONCLUSION: 1. ET tube in good position. 2. Gastric tube side-port is in the lower chest and the tube needs to be advanced at least [address] 05/08/18 20:43 CONCLUSION: 1. Punctate hyperdensity characteristic of hemorrhage in the right mid araseli. 2. No acute findings in the supratentorial brain. . Cervical Spine CT 05/08/18 20:44 CONCLUSION: 1. Moderate degenerative changes at C6-7. 2. Otherwise negative exam. Head MRI 05/10/18 00:00 CONCLUSION: 1. No evidence of acute hemorrhage within the right araseli. 2. No acute infarct, acute hemorrhage, midline shift or extra-axial fluid collection. 3. Mucosal thickening involving the left maxillary sinus, bilateral anterior ethmoid air cells and bilateral sphenoid sinuses. 4. Some fluid within the mastoid air cells bilaterally. Chest X-Ray 05/10/18 06:00 CONCLUSION: Infiltrating the medial right lower lobe or right middle lobe. Infiltrate is increased from the previous study Head MRA 05/10/18 06:52 CONCLUSION: 1. Negative MRA Cow ([facility] [place]) non contrast. Chest X-Ray 05/11/18 06:00 CONCLUSION: Bilateral pleural effusions right greater than left. ET tube in good position. Chest X-Ray 05/12/18 06:00 CONCLUSION: No change in bilateral opacity likely representing a combination of mild pulmonary edema/pleural effusions. Chest X-Ray 05/12/18 11:03 CONCLUSION: 1. Central line without pneumothorax. 2. Unchanged bilateral pleural effusions and bibasilar pulmonary infiltrates. Chest X-Ray 05/13/18 06:00 CONCLUSION: No significant interval change with persistent bilateral pulmonary parenchymal opacity and small bilateral pleural effusions. Chest X-Ray 05/15/18 00:00 CONCLUSION: No significant interval change with persistent bilateral pulmonary parenchymal opacity and bilateral pleural effusions. Chest X-Ray 05/17/18 04:00 CONCLUSION: Support apparatus unchanged. Stable basilar airspace pleural effusions. Abdomen/Bladder Ultrasound 05/18/18 00:00 CONCLUSION: 1. Negative renal ultrasound examination. 2. The urinary bladder is decompressed by Orellana catheter. Chest X-Ray 05/19/18 06:00 CONCLUSION: Support apparatus unchanged and in satisfactory position. Basilar airspace disease and pleural effusions similar to May 17. Objective Remarks: GENERAL: 63-year-old male currently orotracheally intubated SKIN: Warm and dry. No rash. HEAD: Atraumatic. Normocephalic. EYES: Pupils equal and round and minimally reactive bilaterally. No scleral icterus. No injection or drainage. ENT: No nasal bleeding or discharge. Mucous membranes pink and moist. NECK: Trachea midline. No JVD. Left IJ is clean dry and intact. CARDIOVASCULAR: RRR S1, S2. No S4. RESPIRATORY: No accessory muscle use. Clear to auscultation. Breath sounds equal bilaterally. GASTROINTESTINAL: Abdomen soft, non-tender, nondistended. Hepatic and splenic margins not palpable. Normal active bowel sounds MUSCULOSKELETAL: Extremities without clubbing, cyanosis, or edema. No obvious deformities. NEUROLOGICAL: GCS 11T. Alert and responsive to commands moves all 4 extremities x4. Assessment and Plan - Assessment and Plan Plan: Neuro/Psych: Rule out anoxic encephalopathy Original CT brain on admission revealed possible 3 mm mid right araseli hemorrhage. Currently propofol infusion at 5 mcgs per kilogram per minute/dexmedetomidine drip at 0.7 mg/kg/h for sedation/analgesia while intubated, to maintain ventilator synchrony. Daily sedation vacation Goal of RASS -0 Neurology/Dr. Connor following EEG completed 05/09 with no epileptic activity. Repeat 05/12 with sharp activity. Currently on fosphenytoin IV 100 mg 3 times daily and levetiracetam 500 mg IV twice daily. Discontinue levetiracetam secondary to acute kidney injury 05/16 Dilantin level noted therapeutic. Recheck level in a.m. 05/20 MRI brain revealed left maxillary, bilateral ethmoid and sphenoid sinusitis. MRA brain revealed normal examination. Continue scheduled dosing lactulose 30 cc twice daily Trend ammonia level GCS 11T-responsive to commands CV Out of hospital cardiac arrest/V. 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 Rayos. Melendez for carvedilol 3.125 mg twice daily, start aspirin 81 mg daily. Discontinued heparin drip. 05/12 Added enalapril 2.5 mg daily and atorvastatin 10 mg at night since MRI brain revealed no hemorrhage disContinue enalapril 2.5 mg daily in light of acute kidney injury Originally not candidate for cardiac catheterization due to pontine hemorrhage right mid araseli. This is been changed with MRI/A 2D echocardiogram revealed EF 30-35%. Ruptured chordae tendon possible involving mitral valve. Resp: Acute respiratory failurelikely aspiration with right lower lobe infiltrate and altered mental status PRVC ventilation Ventilator bundle Continue CPAP trial Head of bed at 30 degrees Albuterol/ipratropium aerosols every 4 hours with albuterol aerosols every 2 hours as needed dyspnea Chest x-ray revealed bilateral pulmonary opacities and small bilateral pleural effusions, still unchanged GI: Hyperammonia Vital 1.5 goal 60 cc output currently 60 cc an hour Pantoprazole for GI prophylaxis Docusate serum/senna 1 tablet twice daily for bowel regimen with lactulose 30 cc twice daily Follow-up on ammonia level in a.m. 05/20 : Orellana catheter placed for accurate I's and O's in a critical patient currentl Endo: Acute hyperglycemia Low TSH Sliding scale insulin with Accu-Cheks to maintain euglycemia. On insulin detemir 4 units twice daily TSH was 0.285. Normal free T4/total T3. Recheck 4-6-week HEME: Leukocytosis Normocytic anemia Monitor CBC daily. Follow trends. No indication for transfusion of blood products at this time Renal Acute kidney injury Creatinine currently within normal limits Acute I's and O's monitor urine output Avoid nephrotoxic medications. Discontinue enalapril. Discontinued vancomycin. Continue furosemide. Discontinue levetiracetam. Check renal ultrasound of/urine eosinophils and sodium and creatinine. ID: MRSA sputum positive Monitor for signs and symptomatology infection Patient with aspiration. Discontinued vancomycin and piperacillin/tazobactam. Completed 7 days therapy. FEN: Hyperphosphatemia Hypermagnesia Replace electrolytes as clinically indicated Discontinue IV fluid MSK: PT evaluate and treat Access -Left CVL day 7 Prophylaxis - -GI pantoprazole - -DVT -SCD/heparin subcu Level 3 followup
--- NOTE | 2018-05-19 08:06 | P.PNNEU ---
Subjective Subjective Comments: no acute events. no sz reported Active Medications: Active Medications Acetaminophen (Tylenol) 650 mg PO Q6H PRN PRN Reason: PAIN 1-5 AND/OR FEVER >101F Last Admin: 05/16/18 21:30 Dose: 650 mg Albuterol (Albuterol Neb (Prn)) 2.5 mg NEB Q2HR NEB PRN PRN Reason: DYSPNEA Last Admin: 05/17/18 19:38 Dose: 2.5 mg Albuterol (Duoneb Neb ([facility])) 1 ampul NEB Q4HR NEB [facility] Last Admin: 05/19/18 07:20 Dose: 1 ampul Amiodarone HCl (Cordarone) 400 mg PO DAILY [facility] Last Admin: 05/18/18 08:04 Dose: 400 mg Artificial Tears (Tears Naturale Opth Drops) 1 drop EACH EYE Q8H [facility] Last Admin: 05/19/18 07:54 Dose: 1 drop Aspirin (Aspirin Chew) 81 mg PO DAILY [facility] Last Admin: 05/18/18 08:00 Dose: 81 mg Atorvastatin Calcium (Lipitor) 10 mg PO HS [facility] Last Admin: 05/18/18 22:32 Dose: 10 mg Bisacodyl (Dulcolax Supp) 10 mg RECTAL DAILY PRN PRN Reason: SEVERE CONSITIPATION Carvedilol (Coreg) 3.125 mg PO BID [facility] Last Admin: 05/18/18 22:32 Dose: 3.125 mg Chlorhexidine Gluconate (Peridex 0.12% Oral Kit) 15 ml OROPHARYNG BID@0800, 2000 [facility] Last Admin: 05/19/18 07:53 Dose: 15 ml Dextrose (D50w Vial) 50 ml IV.PUSH UNSCH PRN PRN Reason: PER HYPOGLYCEMIA PROTOCOL Glucagon (Glucagon Inj) 1 mg OTHER PRN PRN PRN Reason: for Hypoglycemia Protocol Heparin Sodium (Porcine) (Heparin Inj) 5,000 units SQ Q8HR [facility] Last Admin: 05/19/18 05:28 Dose: 5,000 units Hydralazine HCl (Apresoline Inj) 10 mg IV.PUSH Q1H PRN PRN Reason: Sbp>140, Dbp>90 Last Admin: 05/10/18 08:00 Dose: 10 mg Propofol (Diprivan 1000 Mg/100 Ml Inj) 1,000 mg in 100 mls @ 2.449 mls/hr IV.CONT TITRATE PRN; Protocol PRN Reason: Per Protocol Last Admin: 05/18/18 21:41 Dose: 15 mcg/kg/min, 7.35 mls/hr Vancomycin HCl 1,750 mg/ (Sodium Chloride) 517.5 mls @ 250 mls/hr IV.SIG Q12H [facility] Last Infusion: 05/17/18 13:15 Dose: Infused Dexmedetomidine HCl 1,000 mcg/ (Sodium Chloride) 250 mls @ 4.05 mls/hr IV.CONT TITRATE PRN; Protocol PRN Reason: Per Protocol Last Admin: 05/19/18 05:26 Dose: 1.5 mcg/kg/hr, 30.37 mls/hr Insulin Aspart (Novolog Insulin Correctional Sugar Inj) 0 unit SQ Q4HR [facility]; Protocol Last Admin: 05/19/18 05:29 Dose: 2 unit Insulin Detemir (Levemir Inj) 8 unit SQ BID [facility] Last Admin: 05/18/18 22:31 Dose: 8 unit Labetalol HCl (Trandate Inj) 10 mg IV.PUSH Q1H PRN PRN Reason: Sbp>140, Dbp>90, Hr>65 Last Admin: 05/10/18 14:30 Dose: 10 mg Lactulose (Lactulose Liq) 30 ml PO DAILY PRN PRN Reason: SEVERE CONSITIPATION Lactulose (Lactulose Liq) 30 ml PO BID [facility] Last Admin: 05/18/18 22:33 Dose: 30 ml Lorazepam (Ativan Inj) 1 mg IV.PUSH Q1H PRN PRN Reason: SEE LABEL COMMENTS Lorazepam (Ativan Inj) 2 mg IV.PUSH Q1H PRN PRN Reason: SEIZURE ACTIVITY Miscellaneous Medication () 1 each OROPHARYNG 0000,0400,1200,1600 [facility] Last Admin: 05/19/18 07:54 Dose: 1 each Morphine Sulfate (Morphine Inj) 2 mg IV.PUSH Q2H PRN PRN Reason: PAIN SCALE 6 TO 10 Last Admin: 05/16/18 21:28 Dose: 2 mg Mupirocin (Bactroban 2% Nasal Oint) 1 applicatio EACH NARE BID [facility] Last Admin: 05/18/18 22:31 Dose: 1 applicatio Ondansetron HCl (Zofran Inj) 4 mg IV.PUSH Q6H PRN PRN Reason: NAUSEA OR VOMITING Pantoprazole Sodium (Protonix Inj) 40 mg IV.PUSH Q24H [facility] Last Admin: 05/18/18 13:10 Dose: 40 mg Phenytoin Sodium (Dilantin) 300 mg PO HS [facility] Last Admin: 05/18/18 22:32 Dose: 300 mg Polyethylene Glycol (Miralax) 17 gm PO BID [facility] Last Admin: 05/18/18 22:31 Dose: 17 gm Senna/Docusate Sodium (Lizbeth-Colace) 1 tab PO BID [facility] Last Admin: 05/18/18 22:32 Dose: 1 tab Sennosides (Senokot) 17.2 mg PO Q12H PRN PRN Reason: Moderate Constipation Sodium Chloride (Ns Flush) 2 ml IV.FLUSH BID [facility] Last Admin: 05/18/18 22:30 Dose: 2 ml Sodium Chloride (Ns Flush) 2 ml IV.FLUSH PRN PRN PRN Reason: FLUSH AFTER USING IV ACCESS Sodium Chloride (Ns Flush) 0 ml IV.FLUSH DAILY [facility] Last Admin: 05/18/18 08:04 Dose: 2 ml Terbutaline Sulfate (Brethine Inj) 1 mg SQ UNSCH PRN PRN Reason: For Extravasation Allergies/Adverse Reactions: Allergies Allergy/AdvReac Type Severity Reaction Status Date / Time No Known Allergies Allergy Uncoded 02/17/15 12:05 Review of Systems unobtainable due to endotracheal tube, unobtainable due to mental status Physical Exam Vital signs: Vital Signs 05/18/18 08:11 05/18/18 09:00 05/18/18 11:37 Temperature Pulse Rate 69 Respiratory Rate 16 21 Blood Pressure Pulse Oximetry 95 95 05/18/18 12:00 05/18/18 14:41 05/18/18 14:43 Temperature 98.6 F Pulse Rate 66 67 Respiratory Rate 24 23 25 H Blood Pressure 101/54 L Pulse Oximetry 100 98 05/18/18 16:00 05/18/18 20:00 05/18/18 21:18 Temperature 100.8 F H 101.5 F H Pulse Rate 70 74 Respiratory Rate 23 19 Blood Pressure 97/52 L 102/57 L Pulse Oximetry 95 95 95 05/18/18 21:24 05/19/18 00:00 05/19/18 00:33 Temperature 101.5 F H Pulse Rate 76 74 76 Respiratory Rate 29 H 23 18 Blood Pressure 102/57 L Pulse Oximetry 95 95 05/19/18 03:17 05/19/18 04:00 05/19/18 04:13 Temperature 100 F H Pulse Rate 75 74 Respiratory Rate 16 23 18 Blood Pressure 110/59 L Pulse Oximetry 95 94 L 05/19/18 07:00 Temperature Pulse Rate 71 Respiratory Rate 27 H Blood Pressure Pulse Oximetry 96 Intake & Output 05/18/18 05/19/18 05/19/18 18:59 06:59 18:59 Intake Total 770.53 / 770.53 1484 / 1484 Output Total 450 / 450 1200 / 1200 Balance 320.53 / 320.53 284 / 284 Weight 84.9 kg Intake: IV 485.53 / 485.53 600 / 600 Precedex Inj 1,000 MCG In NS 250 / 250 500 / 500 Inj 240 ML @ 0.2 MCG/KG/HR 4.05 mls/hr IV.CONT TITRATE PRN Rx# :[id number] Heparin/D5W 25,000 U/250 mL 25, 35.53 / 35.53 000 unit In 250 ml @ Per Protocol IV.CONT TITRATE PRN Rx #:[id number] Diprivan 1000 mg/100 ml Inj 1, 100 / 100 100 / 100 000 mg In 100 ml @ 5 MCG/KG/MIN 2.449 mls/hr IV.CONT TITRATE PRN Rx#:[id number] Zosyn 4.5 GM Premix 4.5 gm In 100 / 100 100 ml @ 200 mls/hr IV.SIG Q6H JIM Rx#:[id number] Tube Feeding 285 / 285 389 / 389 Other 495 / 495 Output: Urine 450 / 450 1200 / 1200 Other: Date of Last Bowel Movement 05/18/18 05/19/18 # Incontinent Bowel Movements 3 Narrative: intubated; getting changed. limited exam apparently follows simple request - Constitutional no acute distress - Urinary Catheter Management Indwelling Temp Sensing Catheter Cath placed during this visit: yes Reason for continuing: Terminally ill/Comfort care Insertion date: 05/08/18 Insertion time: 22:40 Objective Laboratory Results - last 24 hr 05/18/18 05/18/18 05/18/18 09:05 09:05 09:05 WBC 13.1 H RBC 3.38 L Hgb 9.7 L Hct 29.4 L MCV 86.9 MCH 28.7 MCHC 33.1 RDW 15.1 Plt Count 187 MPV 9.4 Neut % (Auto) 84.7 H Lymph % (Auto) 6.0 L [place] % (Auto) 5.2 Eos % (Auto) 3.6 Baso % (Auto) 0.5 Neut # (Auto) 11.1 H Lymph # (Auto) 0.8 L [place] # (Auto) 0.7 Eos # (Auto) 0.5 H Baso # (Auto) 0.1 WBC Differential . Differential Comment Auto diff final APTT 88.5 H D Sodium 144 Potassium 4.0 Chloride 106 Carbon Dioxide 27.4 Anion Gap 11 BUN 51 H Creatinine 3.33 H Estimated GFR 19 L POC Glucose Random Glucose 213 H Calcium 8.0 L Phosphorus 4.3 Magnesium 2.6 H Total Bilirubin 0.3 AST 33 ALT 42 Alkaline Phosphatase 105 Total Protein 5.6 L Albumin 1.9 L Urine Eosinophils Ur Random Creatinine Ur Random Sodium Random Vancomycin Phenytoin 05/18/18 05/18/18 05/18/18 10:30 10:30 11:06 WBC RBC Hgb Hct MCV MCH MCHC RDW Plt Count MPV Neut % (Auto) Lymph % (Auto) [place] % (Auto) Eos % (Auto) Baso % (Auto) Neut # (Auto) Lymph # (Auto) [place] # (Auto) Eos # (Auto) Baso # (Auto) WBC Differential Differential Comment APTT Sodium Potassium Chloride Carbon Dioxide Anion Gap BUN Creatinine Estimated GFR POC Glucose 251 H Random Glucose Calcium Phosphorus Magnesium Total Bilirubin AST ALT Alkaline Phosphatase Total Protein Albumin Urine Eosinophils None seen Ur Random Creatinine 59 Ur Random Sodium 29 Random Vancomycin Phenytoin 05/18/18 05/18/18 05/18/18 16:03 16:15 20:07 WBC RBC Hgb Hct MCV MCH MCHC RDW Plt Count MPV Neut % (Auto) Lymph % (Auto) [place] % (Auto) Eos % (Auto) Baso % (Auto) Neut # (Auto) Lymph # (Auto) [place] # (Auto) Eos # (Auto) Baso # (Auto) WBC Differential Differential Comment APTT Sodium 144 Potassium 4.1 Chloride 109 H Carbon Dioxide 27.2 Anion Gap 8 BUN 56 H Creatinine 3.50 H Estimated GFR 18 L POC Glucose 115 H 131 H Random Glucose 107 H D Calcium 8.2 L Phosphorus Magnesium Total Bilirubin AST ALT Alkaline Phosphatase Total Protein Albumin Urine Eosinophils Ur Random Creatinine Ur Random Sodium Random Vancomycin Phenytoin 05/19/18 05/19/18 05/19/18 00:26 04:45 04:50 WBC RBC Hgb Hct MCV MCH MCHC RDW Plt Count MPV Neut % (Auto) Lymph % (Auto) [place] % (Auto) Eos % (Auto) Baso % (Auto) Neut # (Auto) Lymph # (Auto) [place] # (Auto) Eos # (Auto) Baso # (Auto) WBC Differential Differential Comment APTT Sodium 144 Potassium 4.4 Chloride 109 H Carbon Dioxide 26.3 Anion Gap 9 BUN 67 H Creatinine 4.29 H Estimated GFR 14 L POC Glucose 187 H 160 H Random Glucose 165 H Calcium 8.0 L Phosphorus 6.0 H D Magnesium 2.8 H Total Bilirubin 0.3 AST 26 ALT 42 Alkaline Phosphatase 111 Total Protein 5.6 L Albumin 1.9 L Urine Eosinophils Ur Random Creatinine Ur Random Sodium Random Vancomycin 41.7 Phenytoin 10.5 05/19/18 04:50 WBC 14.3 H RBC 3.43 L Hgb 9.7 L Hct 29.8 L MCV 86.6 MCH 28.2 MCHC 32.5 RDW 15.1 Plt Count 213 MPV 9.8 Neut % (Auto) 86.0 H Lymph % (Auto) 5.6 L [place] % (Auto) 4.9 Eos % (Auto) 3.1 Baso % (Auto) 0.4 Neut # (Auto) 12.4 H Lymph # (Auto) 0.8 L [place] # (Auto) 0.7 Eos # (Auto) 0.4 Baso # (Auto) 0.1 WBC Differential . 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 fib arrest underlying code cool post-anoxic seizure on eeg MRI brain reviewed. No pontine hemorrhage. No diffusion restriction noted on DWI images. on dilantin/phb off keppra 2/2 ckd off phb last eeg 05/13 Recommendation corrected dil 21. also, with ckd. on dil 300mg qhs f/u cx's extubation per ccm follow exam
[2018-05-19] MEDS: Mupirocin 2% Nasal Oint Topical Syringe EACH NARE SCH ×2 (08:34→21:17)
[2018-05-19] MEDS: Amiodarone 200 MG Tablet PO SCH (08:34)
[2018-05-19] MEDS: Polyethylene Glycol 3350 17 GM Packet PO SCH ×2 (08:34→21:56)
[2018-05-19] MEDS: Senna/Docusate Sodium 8.6/50 MG Tablet PO SCH ×2 (08:35→21:18)
[2018-05-19 11:25] LABS: ABG Base Excess 0.5 mmol/L (-2-2); ABG PCO2 34 mmHg (38-42); ABG PO2 79 mmHG (61-120)
--- NOTE | 2018-05-19 11:26 | P.PNPAL ---
Reason for Visit Reason for visit: a. To assist with evaluation and management of symptoms including: Pain. b. To assist medical decision maker(s) with: better understanding of current medical conditions; weighing benefits/burdens of medical treatment options; making medical treatment decisions. Subjective Subjective/Interval History: Patient seen today to follow-up on comfort, goals of medical treatment with decision-maker. Stable over the weekend however still requiring Precedex for agitation on the ventilator. Some improvement in neurologic status reported to be following commands. WBC uptrending 14.3. Febrile 101.5 max. Blood cultures sent. No observed seizure activity. Tolerating CPAP today with low-dose Precedex plan for medical extubation per critical care. Renal functions trending up, 67/ 4.29 , GFR 14, still making urine-- critical care following. Patient seen in room, dual visit with Gabby Richardson APRN. Patient is on vent though awake, follows simple commands and follows more complex commands such as show me a thumb and move your eyebrows up / down. Explained mechanical vent, hospital course to him he nods some though unable to fully assess orientation. He is slightly restless though calms with verbalization. No family present left card and # for to call when she arrives, discussed with nurse. Discussed with critical care. Return back to room shortly after, arrived. RT obtaining ABG. Patient alert, restless moving around the bed. Plan for medical extubation pending ABG. Discussed with current conditions, monitoring infection status with fevers, WBC, discussed with her improved neurological assessments, discussed with her respiratory status could still be labile, discussed with her longer- term neuro progress would be based on assessments going forward, we gently review patient still remains at risk for sequelae from his initial cardiac and possible brain injury. All questions answered to the best my ability. Goals at this point are semi-aggressive wishing to maximize current treatment options given his neurologic improvement. further verbalizes reintubation only/no cardiac resuscitation. She is open to ongoing discussions as clinical course evolves. Possible patient neuro status may improve enough that he can participate as well. verbalizes that he absolutely would NOT want a tracheostomy or feeding tube. Provided her with palliative contact number. Advance Directives Living Will: Never completed Health Care Surrogate: Never completed Durable Power of [place] Worker: Never completed Objective Vital Signs: Vital Signs 05/18/18 11:37 05/18/18 12:00 05/18/18 14:41 Temperature 98.6 F Pulse Rate 66 67 Respiratory Rate 21 24 23 Blood Pressure 101/54 L Pulse Oximetry 95 100 05/18/18 14:43 05/18/18 16:00 05/18/18 20:00 Temperature 100.8 F H 101.5 F H Pulse Rate 70 74 Respiratory Rate 25 H 23 Blood Pressure 97/52 L 102/57 L Pulse Oximetry 98 95 95 05/18/18 21:18 05/18/18 21:24 05/19/18 00:00 Temperature 101.5 F H Pulse Rate 76 74 Respiratory Rate 19 29 H 23 Blood Pressure 102/57 L Pulse Oximetry 95 95 05/19/18 00:33 05/19/18 03:17 05/19/18 04:00 Temperature 100 F H Pulse Rate 76 75 74 Respiratory Rate 18 16 23 Blood Pressure 110/59 L Pulse Oximetry 95 95 05/19/18 04:13 05/19/18 07:00 05/19/18 08:00 Temperature 100.0 F H Pulse Rate 71 74 Respiratory Rate 18 27 H 23 Blood Pressure 122/58 L Pulse Oximetry 94 L 96 96 05/19/18 09:00 05/19/18 09:44 05/19/18 10:39 Temperature Pulse Rate 74 77 Respiratory Rate 21 31 H Blood Pressure Pulse Oximetry 96 Intake & Output 05/18/18 05/19/18 05/19/18 18:59 06:59 18:59 Intake Total 770.53 / 770.53 1484 / 1484 1038.2 / 1038.2 Output Total 450 / 450 1200 / 1200 Balance 320.53 / 320.53 284 / 284 1038.2 / 1038.2 Weight 84.9 kg Intake: IV 485.53 / 485.53 600 / 600 1038.2 / 1038.2 Precedex Inj 1,000 MCG In NS 250 / 250 500 / 500 Inj 240 ML @ 0.2 MCG/KG/HR 4.05 mls/hr IV.CONT TITRATE PRN Rx# :[id number] Heparin/D5W 25,000 U/250 mL 25, 35.53 / 35.53 000 unit In 250 ml @ Per Protocol IV.CONT TITRATE PRN Rx #:[id number] Diprivan 1000 mg/100 ml Inj 1, 100 / 100 100 / 100 38.2 / 38.2 000 mg In 100 ml @ 5 MCG/KG/MIN 2.449 mls/hr IV.CONT TITRATE PRN Rx#:[id number] Zosyn 4.5 GM Premix 4.5 gm In 100 / 100 100 ml @ 200 mls/hr IV.SIG Q6H JIM Rx#:[id number] 1/2 Normal Saline Inj 1,000 ML 1000 / 1000 @ Wide Open IV.SIG BOLUS ONE Rx #:[id number] Tube Feeding 285 / 285 389 / 389 Other 495 / 495 Output: Urine 450 / 450 1200 / 1200 Other: Date of Last Bowel Movement 05/18/18 05/19/18 # Incontinent Bowel Movements 3 Physical Exam: CONSTITUTIONAL/GENERAL: This is an adequately nourished patient endotracheally intubated on mechanical ventilation. alert, restless. TUBES/LINES/DRAINS: ETT, OG, left IJ central line, Orellana catheter, bilateral SCDs, bilateral soft wrist restraints. SKIN: No jaundice, rashes, or lesions. No wounds seen anteriorly. Skin temperature appropriate. Not diaphoretic. HEAD: Atraumatic. Normocephalic. EYES: Pupils equal and round and reactive. Extraocular motions intact. No scleral icterus. No injection or drainage. ENT: Nose without bleeding or purulent drainage. Moist oral mucosa. ETT, OG in place limiting oropharynx exam NECK: Trachea midline. Supple, nontender. CARDIOVASCULAR: Regular rate and rhythm. Peripheral pulses symmetric. RESPIRATORY/CHEST: Symmetric, unlabored respirations via ETT to mech vent, CPAP. Clear to auscultation. Breath sounds equal bilaterally. GASTROINTESTINAL: Abdomen soft, non-tender, nondistended. Bowel sounds present. GENITOURINARY: Without palpable bladder distension. Orellana catheter in place clear dark yellow urine. MUSCULOSKELETAL: Extremities without clubbing, cyanosis, or edema. No mottling or clubbing. NEUROLOGICAL: Alert, tracks examiner. Appears to be nodding weakly to some questions though not consistently. Follows commands with 4 extremities able to move eyebrows to command able to show thumbs up to command. PSYCHIATRIC: Restless at times though calms with verbal soothing, on low-dose Precedex 1 stacey/kilogram Diagnostic Tests Laboratory: Laboratory Results - last 72 hr 05/16/18 05/16/18 05/16/18 11:05 11:05 16:39 WBC RBC Hgb Hct MCV MCH MCHC RDW Plt Count MPV Neut % (Auto) Lymph % (Auto) [place] % (Auto) Eos % (Auto) Baso % (Auto) Neut # (Auto) Lymph # (Auto) [place] # (Auto) Eos # (Auto) Baso # (Auto) WBC Differential Differential Comment APTT 30.8 Sodium Potassium Chloride Carbon Dioxide Anion Gap BUN Creatinine Estimated GFR POC Glucose 187 H Random Glucose Lactic Acid Calcium Phosphorus Magnesium Total Bilirubin AST ALT Alkaline Phosphatase Ammonia Total Creatine Kinase Total Protein Albumin Urine Eosinophils Ur Random Creatinine Ur Random Sodium Vancomycin Trough 14.6 H Random Vancomycin Phenytoin Phenobarbital 05/16/18 05/16/18 05/16/18 18:30 20:08 23:35 WBC RBC Hgb Hct MCV MCH MCHC RDW Plt Count MPV Neut % (Auto) Lymph % (Auto) [place] % (Auto) Eos % (Auto) Baso % (Auto) Neut # (Auto) Lymph # (Auto) [place] # (Auto) Eos # (Auto) Baso # (Auto) WBC Differential Differential Comment APTT 40.8 H D Sodium Potassium Chloride Carbon Dioxide Anion Gap BUN Creatinine Estimated GFR POC Glucose 254 H 284 H Random Glucose Lactic Acid Calcium Phosphorus Magnesium Total Bilirubin AST ALT Alkaline Phosphatase Ammonia Total Creatine Kinase Total Protein Albumin Urine Eosinophils Ur Random Creatinine Ur Random Sodium Vancomycin Trough Random Vancomycin Phenytoin Phenobarbital 05/17/18 05/17/18 05/17/18 01:00 04:42 06:37 WBC 11.2 H RBC 3.90 L Hgb 11.0 L Hct 33.3 L MCV 85.6 MCH 28.4 MCHC 33.1 RDW 14.6 Plt Count 194 MPV 9.3 Neut % (Auto) 80.3 H Lymph % (Auto) 9.2 [place] % (Auto) 6.5 Eos % (Auto) 3.5 Baso % (Auto) 0.5 Neut # (Auto) 9.0 H Lymph # (Auto) 1.0 [place] # (Auto) 0.7 Eos # (Auto) 0.4 Baso # (Auto) 0.1 WBC Differential . Differential Comment Auto diff final APTT 41.3 H Sodium Potassium Chloride Carbon Dioxide Anion Gap BUN Creatinine Estimated GFR POC Glucose 247 H Random Glucose Lactic Acid Calcium Phosphorus Magnesium Total Bilirubin AST ALT Alkaline Phosphatase Ammonia Total Creatine Kinase Total Protein Albumin Urine Eosinophils Ur Random Creatinine Ur Random Sodium Vancomycin Trough Random Vancomycin Phenytoin Phenobarbital 05/17/18 05/17/18 05/17/18 06:37 06:37 07:28 WBC RBC Hgb Hct MCV MCH MCHC RDW Plt Count MPV Neut % (Auto) Lymph % (Auto) [place] % (Auto) Eos % (Auto) Baso % (Auto) Neut # (Auto) Lymph # (Auto) [place] # (Auto) Eos # (Auto) Baso # (Auto) WBC Differential Differential Comment APTT Sodium 143 Potassium 3.8 Chloride 108 H Carbon Dioxide 25.3 Anion Gap 10 BUN 29 H Creatinine 1.35 H Estimated GFR 53 L POC Glucose 236 H Random Glucose 266 H Lactic Acid Calcium 8.2 L Phosphorus 3.7 Magnesium 2.2 Total Bilirubin AST ALT Alkaline Phosphatase Ammonia 45 H Total Creatine Kinase Total Protein Albumin Urine Eosinophils Ur Random Creatinine Ur Random Sodium Vancomycin Trough Random Vancomycin Phenytoin 13.1 Phenobarbital 10.2 L 05/17/18 05/17/18 05/17/18 12:24 15:58 20:05 WBC RBC Hgb Hct MCV MCH MCHC RDW Plt Count MPV Neut % (Auto) Lymph % (Auto) [place] % (Auto) Eos % (Auto) Baso % (Auto) Neut # (Auto) Lymph # (Auto) [place] # (Auto) Eos # (Auto) Baso # (Auto) WBC Differential Differential Comment APTT Sodium Potassium Chloride Carbon Dioxide Anion Gap BUN Creatinine Estimated GFR POC Glucose 285 H 169 H 233 H Random Glucose Lactic Acid Calcium Phosphorus Magnesium Total Bilirubin AST ALT Alkaline Phosphatase Ammonia Total Creatine Kinase Total Protein Albumin Urine Eosinophils Ur Random Creatinine Ur Random Sodium Vancomycin Trough Random Vancomycin Phenytoin Phenobarbital 05/18/18 05/18/18 05/18/18 00:38 04:53 05:55 WBC RBC Hgb Hct MCV MCH MCHC RDW Plt Count MPV Neut % (Auto) Lymph % (Auto) [place] % (Auto) Eos % (Auto) Baso % (Auto) Neut # (Auto) Lymph # (Auto) [place] # (Auto) Eos # (Auto) Baso # (Auto) WBC Differential Differential Comment APTT Sodium Potassium Chloride Carbon Dioxide Anion Gap BUN Creatinine Estimated GFR POC Glucose 241 H 210 H Random Glucose Lactic Acid Calcium Phosphorus Magnesium Total Bilirubin AST ALT Alkaline Phosphatase Ammonia Total Creatine Kinase Total Protein Albumin Urine Eosinophils Ur Random Creatinine Ur Random Sodium Vancomycin Trough Random Vancomycin 45.2 Phenytoin Phenobarbital 05/18/18 05/18/18 05/18/18 05:55 07:41 09:05 WBC 13.1 H RBC 3.38 L Hgb 9.7 L Hct 29.4 L MCV 86.9 MCH 28.7 MCHC 33.1 RDW 15.1 Plt Count 187 MPV 9.4 Neut % (Auto) 84.7 H Lymph % (Auto) 6.0 L [place] % (Auto) 5.2 Eos % (Auto) 3.6 Baso % (Auto) 0.5 Neut # (Auto) 11.1 H Lymph # (Auto) 0.8 L [place] # (Auto) 0.7 Eos # (Auto) 0.5 H Baso # (Auto) 0.1 WBC Differential . Differential Comment Auto diff final APTT 48.2 H Sodium Potassium Chloride Carbon Dioxide Anion Gap BUN Creatinine Estimated GFR POC Glucose 207 H Random Glucose Lactic Acid Calcium Phosphorus Magnesium Total Bilirubin AST ALT Alkaline Phosphatase Ammonia Total Creatine Kinase Total Protein Albumin Urine Eosinophils Ur Random Creatinine Ur Random Sodium Vancomycin Trough Random Vancomycin Phenytoin Phenobarbital 05/18/18 05/18/18 05/18/18 09:05 09:05 10:30 WBC RBC Hgb Hct MCV MCH MCHC RDW Plt Count MPV Neut % (Auto) Lymph % (Auto) [place] % (Auto) Eos % (Auto) Baso % (Auto) Neut # (Auto) Lymph # (Auto) [place] # (Auto) Eos # (Auto) Baso # (Auto) WBC Differential Differential Comment APTT 88.5 H D Sodium 144 Potassium 4.0 Chloride 106 Carbon Dioxide 27.4 Anion Gap 11 BUN 51 H Creatinine 3.33 H Estimated GFR 19 L POC Glucose Random Glucose 213 H Lactic Acid Calcium 8.0 L Phosphorus 4.3 Magnesium 2.6 H Total Bilirubin 0.3 AST 33 ALT 42 Alkaline Phosphatase 105 Ammonia Total Creatine Kinase Total Protein 5.6 L Albumin 1.9 L Urine Eosinophils Ur Random Creatinine 59 Ur Random Sodium 29 Vancomycin Trough Random Vancomycin Phenytoin Phenobarbital 05/18/18 05/18/18 05/18/18 10:30 11:06 16:03 WBC RBC Hgb Hct MCV MCH MCHC RDW Plt Count MPV Neut % (Auto) Lymph % (Auto) [place] % (Auto) Eos % (Auto) Baso % (Auto) Neut # (Auto) Lymph # (Auto) [place] # (Auto) Eos # (Auto) Baso # (Auto) WBC Differential Differential Comment APTT Sodium Potassium Chloride Carbon Dioxide Anion Gap BUN Creatinine Estimated GFR POC Glucose 251 H 115 H Random Glucose Lactic Acid Calcium Phosphorus Magnesium Total Bilirubin AST ALT Alkaline Phosphatase Ammonia Total Creatine Kinase Total Protein Albumin Urine Eosinophils None seen Ur Random Creatinine Ur Random Sodium Vancomycin Trough Random Vancomycin Phenytoin Phenobarbital 05/18/18 05/18/18 05/19/18 16:15 20:07 00:26 WBC RBC Hgb Hct MCV MCH MCHC RDW Plt Count MPV Neut % (Auto) Lymph % (Auto) [place] % (Auto) Eos % (Auto) Baso % (Auto) Neut # (Auto) Lymph # (Auto) [place] # (Auto) Eos # (Auto) Baso # (Auto) WBC Differential Differential Comment APTT Sodium 144 Potassium 4.1 Chloride 109 H Carbon Dioxide 27.2 Anion Gap 8 BUN 56 H Creatinine 3.50 H Estimated GFR 18 L POC Glucose 131 H 187 H Random Glucose 107 H D Lactic Acid Calcium 8.2 L Phosphorus Magnesium Total Bilirubin AST ALT Alkaline Phosphatase Ammonia Total Creatine Kinase Total Protein Albumin Urine Eosinophils Ur Random Creatinine Ur Random Sodium Vancomycin Trough Random Vancomycin Phenytoin Phenobarbital 05/19/18 05/19/18 05/19/18 04:45 04:50 04:50 WBC 14.3 H RBC 3.43 L Hgb 9.7 L Hct 29.8 L MCV 86.6 MCH 28.2 MCHC 32.5 RDW 15.1 Plt Count 213 MPV 9.8 Neut % (Auto) 86.0 H Lymph % (Auto) 5.6 L [place] % (Auto) 4.9 Eos % (Auto) 3.1 Baso % (Auto) 0.4 Neut # (Auto) 12.4 H Lymph # (Auto) 0.8 L [place] # (Auto) 0.7 Eos # (Auto) 0.4 Baso # (Auto) 0.1 WBC Differential . Differential Comment Auto diff final APTT Sodium 144 Potassium 4.4 Chloride 109 H Carbon Dioxide 26.3 Anion Gap 9 BUN 67 H Creatinine 4.29 H Estimated GFR 14 L POC Glucose 160 H Random Glucose 165 H Lactic Acid Calcium 8.0 L Phosphorus 6.0 H D Magnesium 2.8 H Total Bilirubin 0.3 AST 26 ALT 42 Alkaline Phosphatase 111 Ammonia Total Creatine Kinase Total Protein 5.6 L Albumin 1.9 L Urine Eosinophils Ur Random Creatinine Ur Random Sodium Vancomycin Trough Random Vancomycin 41.7 Phenytoin 10.5 Phenobarbital 05/19/18 05/19/18 05/19/18 08:10 08:31 09:26 WBC RBC Hgb Hct MCV MCH MCHC RDW Plt Count MPV Neut % (Auto) Lymph % (Auto) [place] % (Auto) Eos % (Auto) Baso % (Auto) Neut # (Auto) Lymph # (Auto) [place] # (Auto) Eos # (Auto) Baso # (Auto) WBC Differential Differential Comment APTT Sodium Potassium Chloride Carbon Dioxide Anion Gap BUN Creatinine Estimated GFR POC Glucose 174 H Random Glucose Lactic Acid 1.1 Calcium Phosphorus Magnesium Total Bilirubin AST ALT Alkaline Phosphatase Ammonia Total Creatine Kinase 68 Total Protein Albumin Urine Eosinophils Ur Random Creatinine Ur Random Sodium Vancomycin Trough Random Vancomycin Phenytoin Phenobarbital Result Diagrams: 05/19/18 04:50 05/19/18 04:50 Imaging: Impressions Abdomen/Bladder Ultrasound 05/18/18 00:00 CONCLUSION: 1. Negative renal ultrasound examination. 2. The urinary bladder is decompressed by Orellana catheter. Chest X-Ray 05/19/18 06:00 CONCLUSION: Support apparatus unchanged and in satisfactory position. Basilar airspace disease and pleural effusions similar to May 17. Procedures: 05/08: Endotracheal intubation 05/12: Left IJ central line Assessment and Plan - Disease Oriented Problem List (1) Acute respiratory failure (2) Hypoxic encephalopathy (3) Ischemic cardiomyopathy (4) Cardiac arrest Pertinent Non-Medical Issues: Psychosocial: Patient originally from [place], moved to [place] 14 years ago. for the past 14 years. Has 1 biological son, Valente who is 42 y/o and resizing [place]. 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 No service. Spiritual: No gnosticism affiliation reported. Legal: No advanced directives completed. Ethical issues impacting care: No ethical issues have been identified. Important Contacts: Patient's Dyan . Prognosis: Mr. Siddiqui is a 63-year-old male with no significant past medical history who presented to ED status post V. fib/V. tach arrest. Clinical course complicated by persistent post anoxic seizures. Initially poor neurologic assessment concern for anoxic injury. Some improvement over the past few days now following commands and tolerating ventilator weaning. Plan for medical extubation, though continues to remain Patient at high risk for further complications, continued decline and . Code Status: Alternative Code (intub only) Plan: * CODE STATUS:ALT code. INTUBATION ONLY, no cardiac resuscitation * HEALTHCARE DECISION-MAKING: Patient unable to participate in medical decision making in the setting of anoxic brain. Not likely to regain medical decision making capacity. No advance directives completed. As per [place] statue in the absence of AD, healthcare proxy decision making falls to patient's Dyan Siddiqui. has accepted this role and is fully supported by patient's sister and son. * GOALS OF CARE: reports that patient has verbalized in many occasions that "if he was unable to return to his independent self (talking, walking, independent with ADL's, riding his motorcycle), any other alternative would NOT be an acceptable quality of life". * 05/19/18 goals at this point are semi-aggressive wishing to maximize current treatment options given his neurologic improvement. further verbalizes reintubation only/no cardiac resuscitation. She is open to ongoing discussions as clinical course evolves. Possible patient neuro status may improve enough that he can participate as well. verbalizes that he absolutely would not want a tracheostomy or feeding tube. * SYMPTOMS: * =Pain: Secondary to multiple lines, intubation, bedrest. Fentanyl drip currently on hold for planned medical extubation. Morphine 2 mg IV every 2 hours available as needed. Limiting any possible sedatives at this point due to pending extubation. Will monitor for signs and symptoms of pain, comfort level going forward. Mildly restless today 2/2 to ETT?, though otherwise no signs of distress. No further recommendations at this time. = Dyspnea: Has been on mechanical vent since initial cardiac arrest event. Some concern for anoxic brain injury. Neurologic improvement in the past few days plan for medical extubation this morning. Tolerating CPAP 5/10/40 percent FiO2. May still be at risk for inadequate airway protection. Ongoing monitoring per critical care. = Agitation/encephalopathy: Status post cardiac arrest, and developed seizure activity. Concern for anoxic brain injury. Patient with significant agitation requiring multiple sedatives while on the mechanical vent. Slight improvement in this today, planned for medical extubation. Slow improvement in neurological assessments no following commands. Ongoing evaluations will be needed to continue to assess neurologic function and recovery. Neurology following. * Palliative care to continue to follow-up for further clarifications of goals of care, family support as patient's clinical course continues to evolve. Attestation Attestation: To help prompt me to consider important information that might be impacting today's encounter and assessment, information from prior notes written by myself or my colleagues may have been "brought forward" into today's note. My signature on this note, however, is an attestation that I personally performed the exam, history, and/or decision-making noted today, and, unless otherwise indicated, the interactions with patient, family, and staff as well as the review of records all occurred today. I also attest that the listed assessment and stated plan reflect my best clinical judgment today based on the combination of historical information, prior notes, and today's exam/ interactions. When time spent is documented, it refers only to time spent today by the signer, or if indicated, combined time spent today by collaborating physician/nurse practitioner.
[2018-05-19] MEDS ORDERED: Sodium Chloride 0.45 % Inj 1,000 ML IV.CONT SCH (13:00)
[2018-05-19] MEDS: Pantoprazole Inj 40 MG Vial IV.PUSH SCH (13:22)
[2018-05-19 13:58] LABS: Amorphous Sediment,Urine Rare /hpf; Bacteria,Urine Rare /hpf; Bilirubin,Urine Negative (Negative); Clarity,Urine Hazy (Clear); Color,Urine Yellow (Yellw/Straw); Glucose,Urine (UA) Negative (Negative); Leukocyte Esterase,Urine Negative (Negative); Mucus,Urine Few /lpf (Occasional); Nitrite,Urine Negative (Negative); Specific Gravity,Urine 1.011 (1.002-1.035)
--- NOTE | 2018-05-19 16:02 | P.CONNP ---
History of Present Illness Service: Nephrology Consult date: 05/19/18 Requesting Physician: Ra Cunningham Reason for Consult: Acute renal failure Primary Care Provider: Joseph Calhoun MD Chief Complaint: Abnormal CAT scan History of Present Illness: Patient is a 63-year-old with history of cardiac arrest status post resuscitation, V. fib/V. tach had defibrillation x2 regarding, estimated down time for about 10 minutes, patient being intubated has MRSA in the sputum was treated with vancomycin, his creatinine started increasing around 05/17 1.35, vancomycin was discontinued and his creatinine continued to climb to 4.2 today, he remains nonoliguric made 3.3 L of urine, random Vancomycin level was at 41.7 today, patient is extubated and is awake and alert he is restless moving around in the bed however at the bedside stated he recognize and spoke to everybody earlier. Patient and denies prior knowledge of kidney problems. His creatinine was 1.13 which improved to 0.5 and now this has slowly increased to 4.2. He has a question of pontine hemorrhage however follow-up MRI did not reveal intracranial hemorrhage, patient has been extubated and able to answer questions. Review of Systems Constitutional: Reports fatigue Eyes: Denies blind spots, Denies blurry vision, Denies bulging eyes, Denies change in vision, Denies double vision, Denies discharge, Denies dry eyes, Denies floaters, Denies irritation, Denies itchy eyes, Denies loss of vision, Denies pain, Denies requires corrective lenses, Denies sensitivity to light, Denies other Ears, Nose, Mouth, and Throat: Denies abnormal hearing, Denies bleeding gums, Denies bad breath, Denies change in voice, Denies dental pain, Denies difficulty swallowing, Denies dizziness, Denies dry mouth, Denies ear discharge , Denies ear pain, Denies facial pain, Denies headache(s), Denies hearing loss, Denies hoarseness, Denies lip swelling, Denies nosebleed, Denies mouth lesions, Denies mouth pain, Denies nasal congestion, Denies nasal discharge, Denies nasal obstruction, Denies nasal trauma, Denies neck lump, Denies neck pain, Denies nose pain, Denies pain with swallowing, Denies poor balance, Denies post nasal drip, Denies ringing in the ears, Denies sinus pain, Denies sinus pressure , Denies sore throat, Denies throat swelling, Denies tongue swelling, Denies other Cardiovascular: Reports other (As stated in recent history) Respiratory: Reports other (As in history of present illness) Gastrointestinal: Denies abdominal pain, Denies belching, Denies black, tarry stools, Denies bloating, Denies bright, red blood in stools, Denies change in bowel habits, Denies constant urge to pass stool, Denies change in stools, Denies coffee ground vomit, Denies constipation, Denies cramping, Denies difficulty swallowing, Denies excessive passing of gas, Denies feeling full early, Denies heartburn, Denies incontinent of stools, Denies loose stools, Denies nausea, Denies pain with swallowing, Denies vomiting, Denies vomiting blood, Denies other Genitourinary: Denies blood in semen, Denies blood in urine, Denies decreased urination, Denies difficulty urinating, Denies difficulty with ejaculations, Denies erectile dysfunction, Denies genital lesions, Denies genital pain, Denies painful urination, Denies side pain, Denies frequent nighttime urination , Denies painful ejaculations, Denies penile discharge, Denies scrotal swelling , Denies testicle lump, Denies testicle pain, Denies urinary frequency, Denies urinary hesitancy, Denies urinary incontinence, Denies urinary urgency, Denies other Musculoskeletal: Denies abnormal walking, Denies back pain, Denies body aches, Denies decreased muscle mass, Denies deformity, Denies joint pain, Denies joint swelling, Denies limited joint movement, Denies loss of height, Denies muscle cramps, Denies muscle weakness, Denies neck pain, Denies numbness, Denies radiating pain into limb, Denies stiffness, Denies tingling, Denies other Skin/Breast: Reports other Neurologic: Reports restless legs, Reports weakness Psychiatric: Reports other Endocrine: Denies cold intolerance, Denies excessive sweating, Denies flushing, Denies heat intolerance, Denies increased hunger, Denies increased thirst, Denies increased urination, Denies rapid, pounding, or irregular heartbeat, Denies other Allergic/Immunologic: Denies GI upset with certain foods, Denies hives, Denies itchy eyes, Denies lip swelling, Denies seasonal runny nose, Denies throat swelling, Denies tongue swelling, Denies wheezing, Denies other PMFSH - History History 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, 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 - Medical History Medical History: Medical History (Last Reviewed 05/19/18 @ 15:57 by George Sheppard MD) History of MRSA infection Onset Date: ~05/08/18 - Surgical History Surgical History: Surgical History (Last Reviewed 05/19/18 @ 15:57 by George Sheppard MD) History of arthroscopy of both knees - Family History Family History: Family History (Last Reviewed 05/19/18 @ 15:57 by George Sheppard MD) Father Atherosclerotic heart disease - Social History I have reviewed the patient's Social History: Yes - Tobacco History Tobacco Use In Past 30 Days: No Smoking Status: Unknown if ever smoked - Alcohol History How Often Do You Have a Drink Containing Alcohol: Unable to Obtain - Substance Use History Substance History: Unable to Obtain - Travel History Recent Travel in the [place] Within the Last 8 Weeks: No Recent Travel Out of the Country Within the Last 8 Weeks: No - Immunization History Tetanus Immunization: Unable to Assess Hx Influenza Vaccine This Season: No Medications and Allergies Active Medications: Active Medications Acetaminophen (Tylenol) 650 mg PO Q6H PRN PRN Reason: PAIN 1-5 AND/OR FEVER >101F Last Admin: 05/16/18 21:30 Dose: 650 mg Albuterol (Albuterol Neb (Prn)) 2.5 mg NEB Q2HR NEB PRN PRN Reason: DYSPNEA Last Admin: 05/17/18 19:38 Dose: 2.5 mg Albuterol (Duoneb Neb (Chao)) 1 ampul NEB Q4HR NEB CHAO Last Admin: 05/19/18 14:56 Dose: 1 ampul Amiodarone HCl (Cordarone) 400 mg PO DAILY [facility] Last Admin: 05/19/18 08:34 Dose: 400 mg Artificial Tears (Tears Naturale Opth Drops) 1 drop EACH EYE Q8H [facility] Last Admin: 05/19/18 13:22 Dose: 1 drop Aspirin (Aspirin Chew) 81 mg PO DAILY [facility] Last Admin: 05/19/18 08:34 Dose: 81 mg Atorvastatin Calcium (Lipitor) 10 mg PO HS [facility] Last Admin: 05/18/18 22:32 Dose: 10 mg Bisacodyl (Dulcolax Supp) 10 mg RECTAL DAILY PRN PRN Reason: SEVERE CONSITIPATION Carvedilol (Coreg) 3.125 mg PO BID [facility] Last Admin: 05/19/18 08:34 Dose: 3.125 mg Chlorhexidine Gluconate (Peridex 0.12% Oral Kit) 15 ml OROPHARYNG BID@0800, 2000 [facility] Last Admin: 05/19/18 08:33 Dose: 15 ml Dextrose (D50w Vial) 50 ml IV.PUSH UNSCH PRN PRN Reason: PER HYPOGLYCEMIA PROTOCOL Glucagon (Glucagon Inj) 1 mg OTHER PRN PRN PRN Reason: for Hypoglycemia Protocol Heparin Sodium (Porcine) (Heparin Inj) 5,000 units SQ Q8HR [facility] Last Admin: 05/19/18 13:22 Dose: 5,000 units Hydralazine HCl (Apresoline Inj) 10 mg IV.PUSH Q1H PRN PRN Reason: Sbp>140, Dbp>90 Last Admin: 05/10/18 08:00 Dose: 10 mg Sodium Chloride (1/2 Normal Saline Inj) 1,000 mls @ 84 mls/hr IV.CONT .[id number] [facility] Last Admin: 05/19/18 14:24 Dose: 84 mls/hr Insulin Aspart (Novolog Insulin Correctional Sugar Inj) 0 unit SQ Q4HR [facility]; Protocol Last Admin: 05/19/18 13:29 Dose: Not Given Insulin Detemir (Levemir Inj) 8 unit SQ BID [facility] Last Admin: 05/18/18 22:31 Dose: 8 unit Labetalol HCl (Trandate Inj) 10 mg IV.PUSH Q1H PRN PRN Reason: Sbp>140, Dbp>90, Hr>65 Last Admin: 05/10/18 14:30 Dose: 10 mg Lactulose (Lactulose Liq) 30 ml PO DAILY PRN PRN Reason: SEVERE CONSITIPATION Lactulose (Lactulose Liq) 30 ml PO BID [facility] Last Admin: 05/19/18 08:34 Dose: Not Given Lorazepam (Ativan Inj) 1 mg IV.PUSH Q1H PRN PRN Reason: SEE LABEL COMMENTS Miscellaneous Medication () 1 each OROPHARYNG 0000,0400,1200,1600 [facility] Last Admin: 05/19/18 15:41 Dose: 1 each Morphine Sulfate (Morphine Inj) 2 mg IV.PUSH Q2H PRN PRN Reason: PAIN SCALE 6 TO 10 Last Admin: 05/16/18 21:28 Dose: 2 mg Mupirocin (Bactroban 2% Nasal Oint) 1 applicatio EACH NARE BID [facility] Last Admin: 05/19/18 08:34 Dose: 1 applicatio Ondansetron HCl (Zofran Inj) 4 mg IV.PUSH Q6H PRN PRN Reason: NAUSEA OR VOMITING Pantoprazole Sodium (Protonix Inj) 40 mg IV.PUSH Q24H [facility] Last Admin: 05/19/18 13:22 Dose: 40 mg Phenytoin Sodium (Dilantin) 300 mg PO HS [facility] Last Admin: 05/18/18 22:32 Dose: 300 mg Polyethylene Glycol (Miralax) 17 gm PO BID [facility] Last Admin: 05/19/18 08:34 Dose: Not Given Senna/Docusate Sodium (Lizbeth-Colace) 1 tab PO BID [facility] Last Admin: 05/19/18 08:35 Dose: Not Given Sennosides (Senokot) 17.2 mg PO Q12H PRN PRN Reason: Moderate Constipation Sodium Chloride (Ns Flush) 2 ml IV.FLUSH BID [facility] Last Admin: 05/19/18 08:34 Dose: 2 ml Sodium Chloride (Ns Flush) 2 ml IV.FLUSH PRN PRN PRN Reason: FLUSH AFTER USING IV ACCESS Sodium Chloride (Ns Flush) 0 ml IV.FLUSH DAILY [facility] Last Admin: 05/19/18 08:34 Dose: 2 ml Allergies Allergy/AdvReac Type Severity Reaction Status Date / Time No Known Allergies Allergy Uncoded 02/17/15 12:05 Home Medications Medication Instructions Recorded Confirmed Type No Known Home Medications 05/08/18 05/08/18 History Exam Vital signs: Vital Signs 05/18/18 16:00 05/18/18 20:00 05/18/18 21:18 Temperature 100.8 F H 101.5 F H Pulse Rate 70 74 Respiratory Rate 23 19 Blood Pressure 97/52 L 102/57 L Pulse Oximetry 95 95 95 05/18/18 21:24 05/19/18 00:00 05/19/18 00:33 Temperature 101.5 F H Pulse Rate 76 74 76 Respiratory Rate 29 H 23 18 Blood Pressure 102/57 L Pulse Oximetry 95 95 05/19/18 03:17 05/19/18 04:00 05/19/18 04:13 Temperature 100 F H Pulse Rate 75 74 Respiratory Rate 16 23 18 Blood Pressure 110/59 L Pulse Oximetry 95 94 L 05/19/18 07:00 05/19/18 08:00 05/19/18 09:00 Temperature 100.0 F H Pulse Rate 71 74 74 Respiratory Rate 27 H 23 Blood Pressure 122/58 L Pulse Oximetry 96 96 05/19/18 09:44 05/19/18 10:39 05/19/18 11:00 Temperature Pulse Rate 77 Respiratory Rate 21 31 H Blood Pressure Pulse Oximetry 96 94 L 05/19/18 12:00 05/19/18 13:10 05/19/18 15:00 Temperature 99.1 F Pulse Rate 76 90 Respiratory Rate 16 Blood Pressure 122/58 L Pulse Oximetry 94 L 93 L 05/19/18 15:13 Temperature Pulse Rate Respiratory Rate Blood Pressure Pulse Oximetry 93 L Intake & Output 05/18/18 05/19/18 05/19/18 18:59 06:59 18:59 Intake Total 770.53 / 770.53 1484 / 1484 1158.2 / 1158.2 Output Total 450 / 450 1200 / 1200 Balance 320.53 / 320.53 284 / 284 1158.2 / 1158.2 Weight 84.9 kg Intake: IV 485.53 / 485.53 600 / 600 1158.2 / 1158.2 Precedex Inj 1,000 MCG In NS 250 / 250 500 / 500 120 / 120 Inj 240 ML @ 0.2 MCG/KG/HR 4.05 mls/hr IV.CONT TITRATE PRN Rx# :[id number] Heparin/D5W 25,000 U/250 mL 25, 35.53 / 35.53 000 unit In 250 ml @ Per Protocol IV.CONT TITRATE PRN Rx #:[id number] Diprivan 1000 mg/100 ml Inj 1, 100 / 100 100 / 100 38.2 / 38.2 000 mg In 100 ml @ 5 MCG/KG/MIN 2.449 mls/hr IV.CONT TITRATE PRN Rx#:[id number] Zosyn 4.5 GM Premix 4.5 gm In 100 / 100 100 ml @ 200 mls/hr IV.SIG Q6H [facility] Rx#:[id number] / Normal Saline Inj 1,000 ML 1000 / 1000 @ Wide Open IV.SIG BOLUS ONE Rx #:[id number] Tube Feeding 285 / 285 389 / 389 Other 495 / 495 Output: Urine 450 / 450 1200 / 1200 Other: Date of Last Bowel Movement 05/18/18 05/19/18 # Incontinent Bowel Movements 3 Narrative: GENERAL: Well-nourished, well-developed patient. SKIN: Warm and dry. HEAD: Normocephalic. EYES: No scleral icterus. No injection or drainage. NECK: Supple, trachea midline. No JVD or lymphadenopathy. CARDIOVASCULAR: Regular rate and rhythm without murmurs, gallops, or rubs. RESPIRATORY: Breath sounds equal bilaterally. No accessory muscle use. GASTROINTESTINAL: Abdomen soft, non-tender, nondistended. EXTREMITIES: No edema NEUROLOGICAL: Awake, alert, patient is restless and moving in the bed Results - Lab Results 05/19/18 04:50 05/19/18 04:50 Most recent lab results ABG pH 7.47 (7.380-7.420) H 05/19/18 11:00 ABG pCO2 34 mmHg (38-42) L 05/19/18 11:00 ABG pO2 79 mmHG (61-120) 05/19/18 11:00 ABG HCO3 24 mmol/L (22-26) 05/19/18 11:00 Calcium 8.0 mg/dL (8.5-10.1) L 05/19/18 04:50 Phosphorus 6.0 mg/dL (2.5-4.9) H D 05/19/18 04:50 Magnesium 2.8 mg/dL (1.5-2.5) H 05/19/18 04:50 Assessment and Plan - Assessment (1) Acute renal failure Code(s): N17.9 - Acute kidney failure, unspecified Status: Acute (2) Cardiac arrest Code(s): I46.9 - Cardiac arrest, cause unspecified Status: Acute (3) Seizure Code(s): R56.9 - Unspecified convulsions Status: Acute (4) Acute respiratory failure Code(s): J96.00 - Acute respiratory failure, unspecified whether with hypoxia or hypercapnia Status: Acute - Plan His condition were discussed with his family, son is a hand surgeon discussed with him that he has MRSA infection and was given vancomycin he has nonoliguric acute tubular necrosis based on his clinical picture, he is passing urine we are waiting for his kidney function should improve, if creatinine continues to rise then we might have to consider hemodialysis however he is nonoliguric and condition is being observed closely with blood tests, Avoid nephrotoxic agent Continue to monitor vancomycin level Give albumin 25 g every 12 will be keeping well-hydrated Follow-up BMP Follow intake and output Discussed with Dr. Cunningham
[2018-05-19] MEDS ORDERED: Etomidate Inj 40 MG/20 ML Vial IV.PUSH ONE ×2 (16:39→16:40)
[2018-05-19] MEDS: Propofol 1000 mg/100 ml Inj 1,000 MG/100 ML BOTTLE IV.CONT PRN ×2 (17:15→21:10)
--- NOTE | 2018-05-19 17:23 | P.PCN ---
Date of procedure: 05/19/18 Pre-op diagnosis: Acute respiratory failure Post-op diagnosis: same Procedure: DATE: 05/19/2018 PROCEDURE: Orotracheal intubation INDICATION: Acute respiratory failure DETAILS OF PROCEDURE The patient was placed in optimal position and preoxygenated with 100% FiO2 via bag valve mask. At the start oxygen saturation was 94%. The patient was administered 20 milligrams etomidate IV and 50 milligrams rocuronium IV. I entered the oropharynx with a size 4 laryngoscope blade and obtained a grade 2 view of the airway. On single attempt a size 7.5 cuffed endotracheal tube was passed through the vocal cords. Initial attempt to pass an 8.0 cuffed endotracheal tube was unsuccessful. Correct tube location was confirmed with end tidal CO2 detector and by auscultating over bilateral lung oro. The endotracheal tube was secured with adhesive tape at a depth of [] cm at the lips. The patient was connected to the ventilator. The patient tolerated the procedure well without any apparent complications. Patient did desaturate down to 70% however recovered oxygen saturations to 98%. STAT chest x-ray pending at time of dictation.
[2018-05-19] MEDS: fentaNYL 10 mcg/mL Premix Drip 2,500 MCG/250 ML BAG IV.SIG PRN (17:34)
--- NOTE | 2018-05-19 17:58 | XR ---
EXAM DATE: 05/19/2018 5:54 PM EST AGE/SEX: 63 years / Male INDICATIONS: Post intubation. CLINICAL DATA: This is the patient's subsequent encounter. Patient reports that signs and symptoms h ave been present for 2 weeks and indicates a pain score of Nonresponsive. MEDICAL/SURGICAL HISTORY: . Seizures. Myocardial infarction. Non-responsive. COMPARISON: [facility], CHEST 1V SINGLE AP, 05/19/2018. . FINDINGS: There are worsening severe diffuse infiltrates consistent with severe pulmonary edema or pneumonia. C linical correlation is recommended. The endotracheal tube has its tip approximately 1 cm above the ca [place]. This could be pulled back 2 cm for more optimal positioning. Left internal jugular central line has its tip in superior vena cava. No pneumothorax is noted. The heart is stable. CONCLUSION: 1. Worsening severe diffuse infiltrates consistent with severe pulmonary edema or pneumonia. Clinica l correlation is recommended. 2. Endotracheal tube has its tip approximately 1 cm above the fannie. This could be pulled back 2 cm for more optimal positioning. Electronically signed by: Hunter Moreno MD 05/19/2018 5:57 PM EST
[2018-05-19] MEDS: Albumin Human 25% Inj 100 ML IV.SIG SCH (18:40)
[2018-05-19 18:44] LABS: ABG Base Excess -1.3 mmol/L (-2-2); ABG PCO2 39 mmHg (38-42); ABG PO2 159 mmHG (61-120)
[2018-05-19] MEDS: Phenytoin Sodium 100 MG Capsule PO SCH (21:17)
[2018-05-19] MEDS: Piperacil/Tazo 2.25 GM Premix 50 ML IV.SIG SCH (22:17)
[2018-05-20] MEDS: Propofol 1000 mg/100 ml Inj 1,000 MG/100 ML BOTTLE IV.CONT PRN ×6 (01:43→22:28)
[2018-05-20] MEDS: Insulin NovoLOG Aspart Correctional Sugar Inj SQ SCH ×5 (03:51→21:26)
[2018-05-20] MEDS: fentaNYL 10 mcg/mL Premix Drip 2,500 MCG/250 ML BAG IV.SIG PRN ×2 (03:51→13:59)
[2018-05-20] MEDS: Oral Hygiene Kit OROPHARYNG SCH ×3 (03:52→15:55)
[2018-05-20 04:53] LABS: Baso # (Auto) 0.2 th/mm3 (0.0-0.2); Baso % (Auto) 1.2 % (0.0-2.0); Eos # (Auto) 0.7 th/mm3 (0.0-0.4); Eos % (Auto) 3.7 % (0.0-4.0); Hematocrit 32.8 % (39.0-51.0); Hemoglobin 10.6 gm/dL (13.0-17.0); Lymph % (Auto) 5.5 % (9.0-44.0); Mean Corpuscular HGB Conc 32.4 % (32.0-36.0); Mean Corpuscular Volume 86.6 fL (80.0-100.0); Mean Platelet Volume 9.9 fL (7.0-11.0); Mono # (Auto) 0.8 th/mm3 (0.0-0.9); Mono % (Auto) 4.3 % (0.0-8.0); Neut # (Auto) 15.7 th/mm3 (1.8-7.7); Neut % (Auto) 85.3 % (16.0-70.0); Platelet Count 313 th/mm3 (150-450); Red Blood Count 3.78 mil/mm3 (4.50-5.90); Red Cell Distribution Width 15.2 % (11.6-17.2); White Blood Count 18.5 th/mm3 (4.0-11.0)
[2018-05-20 05:18] LABS: Alanine Aminotransferase 36 U/L (12-78); Albumin 1.9 g/dL (3.4-5.0); Anion Gap 8 meq/L (5-15); Aspartate Aminotransferase 19 U/L (15-37); Blood Urea Nitrogen 75 mg/dL (7-18); Calcium 7.8 mg/dL (8.5-10.1); Carbon Dioxide 26.6 meq/L (21.0-32.0); Chloride 109 meq/L (98-107); Glomerular Filtration Rate 13 mL/min (>89); Glucose,Random 96 mg/dL (74-106); Magnesium 2.7 mg/dL (1.5-2.5); Phosphorus 5.5 mg/dL (2.5-4.9); Potassium 3.7 meq/L (3.5-5.1); Sodium 144 meq/L (136-145)
[2018-05-20 05:23] LABS: Alkaline Phosphatase 108 U/L (45-117); Phenytoin (Dilantin) 9.9 mcg/mL (10.0-20.0); Total Protein 5.7 g/dL (6.4-8.2); Vancomycin,Random 31.9 Comment
--- NOTE | 2018-05-20 05:23 | XR ---
EXAM DATE: 05/20/2018 4:56 AM EST AGE/SEX: 63 years / Male INDICATIONS: Short of breath. CLINICAL DATA: This is the patient's subsequent encounter. Patient reports that signs and symptoms h ave been present for 1 week and indicates a pain score of 0/10. MEDICAL/SURGICAL HISTORY: . Seizures. Myocardial infarction. Non-responsive. COMPARISON: [facility], CHEST 1V SINGLE AP, 05/19/2018. . FINDINGS: Endotracheal tube and nasogastric tube in good position. Left central line in superior vena cava. Manav ateral mostly basilar and perihilar airspace disease slightly improved from May 19. No pneumotho rax. Small effusions. CONCLUSION: Improved airspace disease since May 19 on the left side. No new infiltrate. Electronically signed by: Jay Silverio MD 05/20/2018 5:21 AM EST
[2018-05-20 05:38] LABS: Troponin I 2.23 ng/mL (0.02-0.05)
[2018-05-20] MEDS: Albumin Human 25% Inj 100 ML IV.SIG SCH ×2 (06:00→16:08)
[2018-05-20] MEDS: Artificial Tears Opth Drops 15 ML Bottle EACH EYE SCH ×3 (06:01→21:29)
[2018-05-20] MEDS: Heparin - SQ 10,000 UNITS/ML Vial SQ SCH ×3 (06:01→21:30)
[2018-05-20] MEDS: Piperacil/Tazo 2.25 GM Premix 50 ML IV.SIG SCH ×3 (06:01→21:29)
[2018-05-20] MEDS ORDERED: Bumetanide Inj 25 MG/100 ML BAG IV.CONT SCH (07:00)
[2018-05-20] MEDS: Mupirocin 2% Nasal Oint Topical Syringe EACH NARE SCH ×2 (08:02→21:27)
[2018-05-20] MEDS: Chlorhexidine 0.12% Oral Kit 15 ML UDC OROPHARYNG SCH ×2 (08:02→21:26)
[2018-05-20] MEDS: Amiodarone 200 MG Tablet PO SCH (08:03)
[2018-05-20] MEDS: Senna/Docusate Sodium 8.6/50 MG Tablet PO SCH ×2 (08:03→21:27)
[2018-05-20] MEDS: Polyethylene Glycol 3350 17 GM Packet PO SCH ×2 (08:03→21:28)
[2018-05-20] MEDS ORDERED: Acetaminophen 325 MG Tablet PO PRN (11:30)
[2018-05-20] MEDS ORDERED: Sod Chloride 0.9% Inj 1,000 ML IV.CONT PRN (11:30)
[2018-05-20] MEDS ORDERED: Heparin 10,000 UNITS/10 ML Vial (for IV use) OTHER PRN ×2 (11:30)
[2018-05-20] MEDS ORDERED: Sod Chloride 0.9% Inj 1,000 ML OTHER PRN ×2 (11:30)
[2018-05-20] MEDS ORDERED: Albumin Human 25% Inj 100 ML IV.SIG PRN (11:30)
[2018-05-20] MEDS ORDERED: Gelatin 12 MM/7 MM Topical Foam TOPICAL PRN (11:30)
--- NOTE | 2018-05-20 11:35 | P.PNNP ---
Subjective Interval history: Patient is reintubated as went into pulmonary edema, renal insufficiency is worse as well, remains nonoliguric Physical Exam Vital signs: Vital Signs 05/19/18 12:00 05/19/18 13:10 05/19/18 15:00 Temperature 99.1 F Pulse Rate 76 90 Respiratory Rate 16 Blood Pressure 122/58 L Pulse Oximetry 94 L 93 L 05/19/18 15:13 05/19/18 16:00 05/19/18 17:05 Temperature 99.1 F Pulse Rate 88 Respiratory Rate 21 Blood Pressure 154/72 H Pulse Oximetry 93 L 93 L 92 L 05/19/18 17:15 05/19/18 17:30 05/19/18 17:45 Temperature Pulse Rate 97 H 105 H 96 H Respiratory Rate Blood Pressure 187/93 H 198/112 H 158/76 H Pulse Oximetry 97 91 L 97 05/19/18 18:00 05/19/18 18:15 05/19/18 18:30 Temperature Pulse Rate 93 H 91 H 91 H Respiratory Rate Blood Pressure 154/75 H 141/66 H 124/55 L Pulse Oximetry 98 98 99 05/19/18 18:45 05/19/18 18:46 05/19/18 19:00 Temperature Pulse Rate 90 90 Respiratory Rate Blood Pressure 122/57 L 129/61 Pulse Oximetry 97 100 98 05/19/18 19:15 05/19/18 19:30 05/19/18 19:45 Temperature Pulse Rate 86 84 84 Respiratory Rate Blood Pressure 127/60 128/62 129/67 Pulse Oximetry 98 97 97 05/19/18 19:57 05/19/18 19:59 05/19/18 20:00 Temperature 98.8 F Pulse Rate 82 82 Respiratory Rate 18 18 Blood Pressure 129/69 Pulse Oximetry 97 96 05/19/18 20:15 05/19/18 20:30 05/19/18 20:45 Temperature Pulse Rate 81 80 80 Respiratory Rate Blood Pressure 126/76 126/73 116/64 Pulse Oximetry 95 95 96 05/19/18 21:00 05/19/18 21:15 05/19/18 21:30 Temperature Pulse Rate 81 80 81 Respiratory Rate Blood Pressure 127/70 125/73 133/75 Pulse Oximetry 96 96 96 05/19/18 21:45 05/19/18 22:00 05/19/18 22:15 Temperature Pulse Rate 83 84 83 Respiratory Rate Blood Pressure 150/79 H 136/69 131/68 Pulse Oximetry 95 95 95 05/19/18 22:30 05/19/18 22:45 05/19/18 23:00 Temperature Pulse Rate 81 80 79 Respiratory Rate Blood Pressure 112/60 106/66 100/62 Pulse Oximetry 96 95 96 05/19/18 23:15 05/19/18 23:30 05/19/18 23:38 Temperature Pulse Rate 79 78 79 Respiratory Rate 18 Blood Pressure 108/65 114/63 Pulse Oximetry 96 96 05/20/18 00:00 05/20/18 00:30 05/20/18 01:00 Temperature 99.3 F Pulse Rate 79 78 Respiratory Rate 18 Blood Pressure 129/70 127/65 Pulse Oximetry 97 96 96 05/20/18 02:00 05/20/18 03:00 05/20/18 04:00 Temperature 99.4 F Pulse Rate 80 81 82 Respiratory Rate Blood Pressure 119/67 137/69 150/76 H Pulse Oximetry 98 97 98 05/20/18 04:02 05/20/18 04:05 05/20/18 05:00 Temperature Pulse Rate 82 92 H Respiratory Rate 18 18 Blood Pressure 126/103 H Pulse Oximetry 98 05/20/18 05:02 05/20/18 06:00 05/20/18 07:00 Temperature Pulse Rate 90 87 81 Respiratory Rate 19 Blood Pressure 170/76 H 129/63 131/65 Pulse Oximetry 98 98 98 05/20/18 08:00 05/20/18 09:00 05/20/18 09:47 Temperature Pulse Rate 81 81 Respiratory Rate 18 Blood Pressure 120/62 Pulse Oximetry 98 98 05/20/18 10:55 Temperature Pulse Rate 75 Respiratory Rate 18 Blood Pressure Pulse Oximetry Intake & Output 05/19/18 05/20/18 05/20/18 18:59 06:59 18:59 Intake Total 1476.2 / 1476.2 1120 / 1120 550 / 550 Output Total 650 / 650 1974 Balance 826.2 / 826.2 -855 / -855 550 / 550 Weight 82.7 kg Intake: IV 1476.2 / 1476.2 1000 / 1000 550 / 550 Precedex Inj 1,000 MCG In NS 120 / 120 Inj 240 ML @ 0.2 MCG/KG/HR 4.05 mls/hr IV.CONT TITRATE PRN Rx# :[id number] Diprivan 1000 mg/100 ml Inj 1, 38.2 / 38.2 300 / 300 100 / 100 000 mg In 100 ml @ 5 MCG/KG/MIN 2.547 mls/hr IV.CONT TITRATE PRN Rx#:[id number] 1/2 Normal Saline Inj 1,000 ML 318 / 318 @ 84 mls/hr IV.CONT .[id number] [facility] Rx#:[id number] Flexbumin 25% Inj 100 ML @ 60 100 / 100 100 / 100 mls/hr IV.SIG Q12H [facility] Rx#: [id number] Zyvox 600 mg Premix 300 ML @ 300 / 300 300 / 300 300 mls/hr IV.SIG Q12H [facility] Rx#: [id number] Zosyn 2.25 GM Premix 50 ML @ 50 / 50 50 / 50 100 mls/hr IV.SIG Q8H [facility] Rx#: [id number] 1/2 Normal Saline Inj 1,000 ML 1000 / 1000 @ Wide Open IV.SIG BOLUS ONE Rx #:[id number] fentaNYL 10 mcg/mL Premix Drip 250 / 250 2,500 mcg In 250 ml @ 50 MCG/HR 5 mls/hr IV.SIG TITRATE PRN Rx #:[id number] Tube Irrigant 120 / 120 Output: Urine Amount (Catheter) 650 / 650 1525 / 1525 Condom 225 / 225 Indwelling Temp Sensing 650 / 650 Catheter Straight 1300 / 1300 Gastric Drainage 450 / 450 Orogastric Tube 450 / 450 Other: # Voids 1 Date of Last Bowel Movement 05/20/18 05/19/18 # Bowel Movements 1 Narrative: GENERAL: Well-nourished, well-developed intubated patient. SKIN: Warm and dry. HEAD: Normocephalic. EYES: No scleral icterus. No injection or drainage. NECK: Supple, trachea midline. No JVD or lymphadenopathy. CARDIOVASCULAR: Regular rate and rhythm without murmurs, gallops, or rubs. RESPIRATORY: Breath sounds equal bilaterally. No accessory muscle use. GASTROINTESTINAL: Abdomen soft, non-tender, nondistended. EXTREMITIES: No edema NEUROLOGICAL: Intubated on the sedation - Urinary Catheter Management Indwelling Temp Sensing Catheter Cath placed during this visit: yes, but has since been removed by the nurse Reason for continuing: Not indwelling catheter Insertion date: 05/08/18 Insertion time: 22:40 Removal date: 05/19/18 Removal time: 12:00 Straight Cath placed during this visit: yes Reason for continuing: Not indwelling catheter Insertion date: 05/20/18 Insertion time: 00:00 Condom Cath placed during this visit: no Assessment and Plan - Assessment (1) Acute renal failure Code(s): N17.9 - Acute kidney failure, unspecified Status: Acute (2) Cardiac arrest Code(s): I46.9 - Cardiac arrest, cause unspecified Status: Acute (3) Seizure Code(s): R56.9 - Unspecified convulsions Status: Acute (4) Acute respiratory failure Code(s): J96.00 - Acute respiratory failure, unspecified whether with hypoxia or hypercapnia Status: Acute - Plan His condition deteriorated and has to be reintubated because of pulmonary edema however he has good urine output Since his creatinine is elevated we discussed doing hemodialysis and Vas-Cath will be inserted Dialysis will be initiated today Monitor intake and output He has ATN related to vancomycin induced toxicity Discussed with Dr. Cunningham
[2018-05-20] MEDS ORDERED: Dextrose 50% in Water Syringe 50 ML ONE (12:24)
[2018-05-20] MEDS ORDERED: Midazolam Inj 5 MG/ML 1 ML Vial ONE ×2 (12:32→12:35)
[2018-05-20] MEDS ORDERED: Midazolam Inj 5 MG/ML 1 ML Vial IV.PUSH ONE (12:33)
--- NOTE | 2018-05-20 12:36 | P.PNPAL ---
Reason for Visit Reason for visit: a. To assist with evaluation and management of symptoms including: Pain. b. To assist medical decision maker(s) with: better understanding of current medical conditions; weighing benefits/burdens of medical treatment options; making medical treatment decisions. Subjective Subjective/Interval History: Patient seen today to follow-up on comfort, goals of medical treatment with pt/ decision-maker. Medically extubated yesterday morning. Reported alert, and appropriate, following commands etc after extubation. Tolerated extubation well initially, + fluid overload, pulmonary edema, required re-intubation around 5pm. BUN and creatinine continue to trend up BUN 75/creatinine 4.6, GFR 13. + fluid. UOP adequate. Planned for Vas cath placement today, and hemodialysis to follow. Critical care hopeful will be able to medically extubate once fluid status corrected. Patient seen in room, dual visit with Gabby Richardson APRN. Patient is on vent, on diprivan for sedation. Arouses easily to verbal. follows simple commands, nods no to pain question. Appears calm/comfortable. Explained mechanical vent, reintubation to him and hope for medical extubation in coming days. No family present. Discussed with critical care, RN. Call to after exam, VM full, unable to leave message. Advance Directives Living Will: Never completed Health Care Surrogate: Never completed Durable Power of Choker [place]er: Never completed Objective Vital Signs: Vital Signs 05/19/18 13:10 05/19/18 15:00 05/19/18 15:13 Temperature Pulse Rate 90 Respiratory Rate 16 Blood Pressure Pulse Oximetry 93 L 93 L 05/19/18 16:00 05/19/18 17:05 05/19/18 17:15 Temperature 99.1 F Pulse Rate 88 97 H Respiratory Rate 21 Blood Pressure 154/72 H 187/93 H Pulse Oximetry 93 L 92 L 97 05/19/18 17:30 05/19/18 17:45 05/19/18 18:00 Temperature Pulse Rate 105 H 96 H 93 H Respiratory Rate Blood Pressure 198/112 H 158/76 H 154/75 H Pulse Oximetry 91 L 97 98 05/19/18 18:15 05/19/18 18:30 05/19/18 18:45 Temperature Pulse Rate 91 H 91 H 90 Respiratory Rate Blood Pressure 141/66 H 124/55 L 122/57 L Pulse Oximetry 98 99 97 05/19/18 18:46 05/19/18 19:00 05/19/18 19:15 Temperature Pulse Rate 90 86 Respiratory Rate Blood Pressure 129/61 127/60 Pulse Oximetry 100 98 98 05/19/18 19:30 05/19/18 19:45 05/19/18 19:57 Temperature Pulse Rate 84 84 Respiratory Rate 18 Blood Pressure 128/62 129/67 Pulse Oximetry 97 97 97 05/19/18 19:59 05/19/18 20:00 05/19/18 20:15 Temperature 98.8 F Pulse Rate 82 82 81 Respiratory Rate 18 Blood Pressure 129/69 126/76 Pulse Oximetry 96 95 05/19/18 20:30 05/19/18 20:45 05/19/18 21:00 Temperature Pulse Rate 80 80 81 Respiratory Rate Blood Pressure 126/73 116/64 127/70 Pulse Oximetry 95 96 96 05/19/18 21:15 05/19/18 21:30 05/19/18 21:45 Temperature Pulse Rate 80 81 83 Respiratory Rate Blood Pressure 125/73 133/75 150/79 H Pulse Oximetry 96 96 95 05/19/18 22:00 05/19/18 22:15 05/19/18 22:30 Temperature Pulse Rate 84 83 81 Respiratory Rate Blood Pressure 136/69 131/68 112/60 Pulse Oximetry 95 95 96 05/19/18 22:45 05/19/18 23:00 05/19/18 23:15 Temperature Pulse Rate 80 79 79 Respiratory Rate Blood Pressure 106/66 100/62 108/65 Pulse Oximetry 95 96 96 05/19/18 23:30 05/19/18 23:38 05/20/18 00:00 Temperature 99.3 F Pulse Rate 78 79 79 Respiratory Rate 18 Blood Pressure 114/63 129/70 Pulse Oximetry 96 97 05/20/18 00:30 05/20/18 01:00 05/20/18 02:00 Temperature Pulse Rate 78 80 Respiratory Rate 18 Blood Pressure 127/65 119/67 Pulse Oximetry 96 96 98 05/20/18 03:00 05/20/18 04:00 05/20/18 04:02 Temperature 99.4 F Pulse Rate 81 82 Respiratory Rate 18 Blood Pressure 137/69 150/76 H Pulse Oximetry 97 98 98 05/20/18 04:05 05/20/18 05:00 05/20/18 05:02 Temperature Pulse Rate 82 92 H 90 Respiratory Rate 18 Blood Pressure 126/103 H 170/76 H Pulse Oximetry 98 05/20/18 06:00 05/20/18 07:00 05/20/18 08:00 Temperature Pulse Rate 87 81 81 Respiratory Rate 19 Blood Pressure 129/63 131/65 120/62 Pulse Oximetry 98 98 98 05/20/18 09:00 05/20/18 09:47 05/20/18 10:55 Temperature Pulse Rate 81 75 Respiratory Rate 18 18 Blood Pressure Pulse Oximetry 98 Intake & Output 05/19/18 05/20/18 05/20/18 18:59 06:59 18:59 Intake Total 1476.2 / 1476.2 1120 / 1120 550 / 550 Output Total 650 / 650 1974 Balance 826.2 / 826.2 -855 / -855 550 / 550 Weight 82.7 kg Intake: IV 1476.2 / 1476.2 1000 / 1000 550 / 550 Precedex Inj 1,000 MCG In NS 120 / 120 Inj 240 ML @ 0.2 MCG/KG/HR 4.05 mls/hr IV.CONT TITRATE PRN Rx# :[id number] Diprivan 1000 mg/100 ml Inj 1, 38.2 / 38.2 300 / 300 100 / 100 000 mg In 100 ml @ 5 MCG/KG/MIN 2.547 mls/hr IV.CONT TITRATE PRN Rx#:[id number] 1/2 Normal Saline Inj 1,000 ML 318 / 318 @ 84 mls/hr IV.CONT .[id number] JIM Rx#:[id number] Flexbumin 25% Inj 100 ML @ 60 100 / 100 100 / 100 mls/hr IV.SIG Q12H JIM Rx#: [id number] Zyvox 600 mg Premix 300 ML @ 300 / 300 300 / 300 300 mls/hr IV.SIG Q12H JIM Rx#: [id number] Zosyn 2.25 GM Premix 50 ML @ 50 / 50 50 / 50 100 mls/hr IV.SIG Q8H JIM Rx#: [id number] 1/2 Normal Saline Inj 1,000 ML 1000 / 1000 @ Wide Open IV.SIG BOLUS ONE Rx #:[id number] fentaNYL 10 mcg/mL Premix Drip 250 / 250 2,500 mcg In 250 ml @ 50 MCG/HR 5 mls/hr IV.SIG TITRATE PRN Rx #:[id number] Tube Irrigant 120 / 120 Output: Urine Amount (Catheter) 650 / 650 1525 / 1525 Condom 225 / 225 Indwelling Temp Sensing 650 / 650 Catheter Straight 1300 / 1300 Gastric Drainage 450 / 450 Orogastric Tube 450 / 450 Other: # Voids 1 Date of Last Bowel Movement 05/20/18 05/19/18 # Bowel Movements 1 Physical Exam: CONSTITUTIONAL/GENERAL: This is an adequately nourished patient endotracheally intubated on mechanical ventilation. alert, calm TUBES/LINES/DRAINS: ETT, OG, left IJ central line, Orellana catheter, bilateral SCDs, bilateral soft wrist restraints. SKIN: No jaundice, rashes, or lesions. No wounds seen anteriorly. Skin temperature appropriate. Not diaphoretic. EYES: Pupils equal and round and reactive. Extraocular motions intact. No scleral icterus. No injection or drainage. ENT: Nose without bleeding or purulent drainage. Moist oral mucosa. ETT, OG in place limiting oropharynx exam CARDIOVASCULAR: Regular rate and rhythm. Peripheral pulses symmetric. RESPIRATORY/CHEST: Symmetric, unlabored respirations via ETT to mech vent, Clear to auscultation,d iminsihed. Breath sounds equal bilaterally. GASTROINTESTINAL: Abdomen soft, non-tender, nondistended. OGT to sx. GENITOURINARY: Without palpable bladder distension. Orellana catheter in place clear yellow urine. MUSCULOSKELETAL: Extremities without clubbing, cyanosis, or edema. No mottling or clubbing. NEUROLOGICAL: Alert, tracks examiner. nods to some questions. Follows commands with 4 extremities PSYCHIATRIC: calm no apparent distress Diagnostic Tests Laboratory: Laboratory Results - last 72 hr 05/17/18 05/17/18 05/17/18 12:24 15:58 20:05 WBC RBC Hgb Hct MCV MCH MCHC RDW Plt Count MPV Neut % (Auto) Lymph % (Auto) Holt % (Auto) Eos % (Auto) Baso % (Auto) Neut # (Auto) Lymph # (Auto) Holt # (Auto) Eos # (Auto) Baso # (Auto) WBC Differential Differential Comment APTT Puncture Site Patient Temperature O2 Saturation ABG pH ABG pCO2 ABG pO2 ABG HCO3 ABG O2 Content ABG Base Excess ABG Methemoglobin David Test Hemoglobin Carboxyhemoglobin O2 Delivery Device Vent Setting Inspired O2 Critical Value Sodium Potassium Chloride Carbon Dioxide Anion Gap BUN Creatinine Estimated GFR POC Glucose 285 H 169 H 233 H Random Glucose Lactic Acid Calcium Phosphorus Magnesium Total Bilirubin AST ALT Alkaline Phosphatase Ammonia Total Creatine Kinase Troponin I Total Protein Albumin Urine Color Urine Clarity Urine pH Ur Specific [place] Urine Protein Urine Glucose (UA) Urine Ketones Urine Occult Blood Urine Nitrate Urine Bilirubin Urine Urobilinogen Ur Leukocyte Esterase Urine RBC Urine WBC Amorphous Sediment Urine Bacteria Urine Mucus Micro UA Comment Ur Microscopic Review Urine Culture Comments Urine Eosinophils Ur Random Creatinine Ur Random Sodium Random Vancomycin Phenytoin 05/18/18 05/18/18 05/18/18 00:38 04:53 05:55 WBC RBC Hgb Hct MCV MCH MCHC RDW Plt Count MPV Neut % (Auto) Lymph % (Auto) Holt % (Auto) Eos % (Auto) Baso % (Auto) Neut # (Auto) Lymph # (Auto) Holt # (Auto) Eos # (Auto) Baso # (Auto) WBC Differential Differential Comment APTT Puncture Site Patient Temperature O2 Saturation ABG pH ABG pCO2 ABG pO2 ABG HCO3 ABG O2 Content ABG Base Excess ABG Methemoglobin David Test Hemoglobin Carboxyhemoglobin O2 Delivery Device Vent Setting Inspired O2 Critical Value Sodium Potassium Chloride Carbon Dioxide Anion Gap BUN Creatinine Estimated GFR POC Glucose 241 H 210 H Random Glucose Lactic Acid Calcium Phosphorus Magnesium Total Bilirubin AST ALT Alkaline Phosphatase Ammonia Total Creatine Kinase Troponin I Total Protein Albumin Urine Color Urine Clarity Urine pH Ur Specific [place] Urine Protein Urine Glucose (UA) Urine Ketones Urine Occult Blood Urine Nitrate Urine Bilirubin Urine Urobilinogen Ur Leukocyte Esterase Urine RBC Urine WBC Amorphous Sediment Urine Bacteria Urine Mucus Micro UA Comment Ur Microscopic Review Urine Culture Comments Urine Eosinophils Ur Random Creatinine Ur Random Sodium Random Vancomycin 45.2 Phenytoin 05/18/18 05/18/18 05/18/18 05:55 07:41 09:05 WBC 13.1 H RBC 3.38 L Hgb 9.7 L Hct 29.4 L MCV 86.9 MCH 28.7 MCHC 33.1 RDW 15.1 Plt Count 187 MPV 9.4 Neut % (Auto) 84.7 H Lymph % (Auto) 6.0 L Holt % (Auto) 5.2 Eos % (Auto) 3.6 Baso % (Auto) 0.5 Neut # (Auto) 11.1 H Lymph # (Auto) 0.8 L Holt # (Auto) 0.7 Eos # (Auto) 0.5 H Baso # (Auto) 0.1 WBC Differential . Differential Comment Auto diff final APTT 48.2 H Puncture Site Patient Temperature O2 Saturation ABG pH ABG pCO2 ABG pO2 ABG HCO3 ABG O2 Content ABG Base Excess ABG Methemoglobin David Test Hemoglobin Carboxyhemoglobin O2 Delivery Device Vent Setting Inspired O2 Critical Value Sodium Potassium Chloride Carbon Dioxide Anion Gap BUN Creatinine Estimated GFR POC Glucose 207 H Random Glucose Lactic Acid Calcium Phosphorus Magnesium Total Bilirubin AST ALT Alkaline Phosphatase Ammonia Total Creatine Kinase Troponin I Total Protein Albumin Urine Color Urine Clarity Urine pH Ur Specific [place] Urine Protein Urine Glucose (UA) Urine Ketones Urine Occult Blood Urine Nitrate Urine Bilirubin Urine Urobilinogen Ur Leukocyte Esterase Urine RBC Urine WBC Amorphous Sediment Urine Bacteria Urine Mucus Micro UA Comment Ur Microscopic Review Urine Culture Comments Urine Eosinophils Ur Random Creatinine Ur Random Sodium Random Vancomycin Phenytoin 05/18/18 05/18/18 05/18/18 09:05 09:05 10:30 WBC RBC Hgb Hct MCV MCH MCHC RDW Plt Count MPV Neut % (Auto) Lymph % (Auto) Holt % (Auto) Eos % (Auto) Baso % (Auto) Neut # (Auto) Lymph # (Auto) Holt # (Auto) Eos # (Auto) Baso # (Auto) WBC Differential Differential Comment APTT 88.5 H D Puncture Site Patient Temperature O2 Saturation ABG pH ABG pCO2 ABG pO2 ABG HCO3 ABG O2 Content ABG Base Excess ABG Methemoglobin David Test Hemoglobin Carboxyhemoglobin O2 Delivery Device Vent Setting Inspired O2 Critical Value Sodium 144 Potassium 4.0 Chloride 106 Carbon Dioxide 27.4 Anion Gap 11 BUN 51 H Creatinine 3.33 H Estimated GFR 19 L POC Glucose Random Glucose 213 H Lactic Acid Calcium 8.0 L Phosphorus 4.3 Magnesium 2.6 H Total Bilirubin 0.3 AST 33 ALT 42 Alkaline Phosphatase 105 Ammonia Total Creatine Kinase Troponin I Total Protein 5.6 L Albumin 1.9 L Urine Color Urine Clarity Urine pH Ur Specific [place] Urine Protein Urine Glucose (UA) Urine Ketones Urine Occult Blood Urine Nitrate Urine Bilirubin Urine Urobilinogen Ur Leukocyte Esterase Urine RBC Urine WBC Amorphous Sediment Urine Bacteria Urine Mucus Micro UA Comment Ur Microscopic Review Urine Culture Comments Urine Eosinophils Ur Random Creatinine 59 Ur Random Sodium 29 Random Vancomycin Phenytoin 05/18/18 05/18/18 05/18/18 10:30 11:06 16:03 WBC RBC Hgb Hct MCV MCH MCHC RDW Plt Count MPV Neut % (Auto) Lymph % (Auto) Holt % (Auto) Eos % (Auto) Baso % (Auto) Neut # (Auto) Lymph # (Auto) Holt # (Auto) Eos # (Auto) Baso # (Auto) WBC Differential Differential Comment APTT Puncture Site Patient Temperature O2 Saturation ABG pH ABG pCO2 ABG pO2 ABG HCO3 ABG O2 Content ABG Base Excess ABG Methemoglobin David Test Hemoglobin Carboxyhemoglobin O2 Delivery Device Vent Setting Inspired O2 Critical Value Sodium Potassium Chloride Carbon Dioxide Anion Gap BUN Creatinine Estimated GFR POC Glucose 251 H 115 H Random Glucose Lactic Acid Calcium Phosphorus Magnesium Total Bilirubin AST ALT Alkaline Phosphatase Ammonia Total Creatine Kinase Troponin I Total Protein Albumin Urine Color Urine Clarity Urine pH Ur Specific [place] Urine Protein Urine Glucose (UA) Urine Ketones Urine Occult Blood Urine Nitrate Urine Bilirubin Urine Urobilinogen Ur Leukocyte Esterase Urine RBC Urine WBC Amorphous Sediment Urine Bacteria Urine Mucus Micro UA Comment Ur Microscopic Review Urine Culture Comments Urine Eosinophils None seen Ur Random Creatinine Ur Random Sodium Random Vancomycin Phenytoin 05/18/18 05/18/18 05/19/18 16:15 20:07 00:26 WBC RBC Hgb Hct MCV MCH MCHC RDW Plt Count MPV Neut % (Auto) Lymph % (Auto) Holt % (Auto) Eos % (Auto) Baso % (Auto) Neut # (Auto) Lymph # (Auto) Holt # (Auto) Eos # (Auto) Baso # (Auto) WBC Differential Differential Comment APTT Puncture Site Patient Temperature O2 Saturation ABG pH ABG pCO2 ABG pO2 ABG HCO3 ABG O2 Content ABG Base Excess ABG Methemoglobin David Test Hemoglobin Carboxyhemoglobin O2 Delivery Device Vent Setting Inspired O2 Critical Value Sodium 144 Potassium 4.1 Chloride 109 H Carbon Dioxide 27.2 Anion Gap 8 BUN 56 H Creatinine 3.50 H Estimated GFR 18 L POC Glucose 131 H 187 H Random Glucose 107 H D Lactic Acid Calcium 8.2 L Phosphorus Magnesium Total Bilirubin AST ALT Alkaline Phosphatase Ammonia Total Creatine Kinase Troponin I Total Protein Albumin Urine Color Urine Clarity Urine pH Ur Specific [place] Urine Protein Urine Glucose (UA) Urine Ketones Urine Occult Blood Urine Nitrate Urine Bilirubin Urine Urobilinogen Ur Leukocyte Esterase Urine RBC Urine WBC Amorphous Sediment Urine Bacteria Urine Mucus Micro UA Comment Ur Microscopic Review Urine Culture Comments Urine Eosinophils Ur Random Creatinine Ur Random Sodium Random Vancomycin Phenytoin 05/19/18 05/19/18 05/19/18 04:45 04:50 04:50 WBC 14.3 H RBC 3.43 L Hgb 9.7 L Hct 29.8 L MCV 86.6 MCH 28.2 MCHC 32.5 RDW 15.1 Plt Count 213 MPV 9.8 Neut % (Auto) 86.0 H Lymph % (Auto) 5.6 L Holt % (Auto) 4.9 Eos % (Auto) 3.1 Baso % (Auto) 0.4 Neut # (Auto) 12.4 H Lymph # (Auto) 0.8 L Holt # (Auto) 0.7 Eos # (Auto) 0.4 Baso # (Auto) 0.1 WBC Differential . Differential Comment Auto diff final APTT Puncture Site Patient Temperature O2 Saturation ABG pH ABG pCO2 ABG pO2 ABG HCO3 ABG O2 Content ABG Base Excess ABG Methemoglobin David Test Hemoglobin Carboxyhemoglobin O2 Delivery Device Vent Setting Inspired O2 Critical Value Sodium 144 Potassium 4.4 Chloride 109 H Carbon Dioxide 26.3 Anion Gap 9 BUN 67 H Creatinine 4.29 H Estimated GFR 14 L POC Glucose 160 H Random Glucose 165 H Lactic Acid Calcium 8.0 L Phosphorus 6.0 H D Magnesium 2.8 H Total Bilirubin 0.3 AST 26 ALT 42 Alkaline Phosphatase 111 Ammonia Total Creatine Kinase Troponin I Total Protein 5.6 L Albumin 1.9 L Urine Color Urine Clarity Urine pH Ur Specific [place] Urine Protein Urine Glucose (UA) Urine Ketones Urine Occult Blood Urine Nitrate Urine Bilirubin Urine Urobilinogen Ur Leukocyte Esterase Urine RBC Urine WBC Amorphous Sediment Urine Bacteria Urine Mucus Micro UA Comment Ur Microscopic Review Urine Culture Comments Urine Eosinophils Ur Random Creatinine Ur Random Sodium Random Vancomycin 41.7 Phenytoin 10.5 05/19/18 05/19/18 05/19/18 08:10 08:31 09:26 WBC RBC Hgb Hct MCV MCH MCHC RDW Plt Count MPV Neut % (Auto) Lymph % (Auto) Holt % (Auto) Eos % (Auto) Baso % (Auto) Neut # (Auto) Lymph # (Auto) Holt # (Auto) Eos # (Auto) Baso # (Auto) WBC Differential Differential Comment APTT Puncture Site Patient Temperature O2 Saturation ABG pH ABG pCO2 ABG pO2 ABG HCO3 ABG O2 Content ABG Base Excess ABG Methemoglobin David Test Hemoglobin Carboxyhemoglobin O2 Delivery Device Vent Setting Inspired O2 Critical Value Sodium Potassium Chloride Carbon Dioxide Anion Gap BUN Creatinine Estimated GFR POC Glucose 174 H Random Glucose Lactic Acid 1.1 Calcium Phosphorus Magnesium Total Bilirubin AST ALT Alkaline Phosphatase Ammonia Total Creatine Kinase 68 Troponin I Total Protein Albumin Urine Color Urine Clarity Urine pH Ur Specific [place] Urine Protein Urine Glucose (UA) Urine Ketones Urine Occult Blood Urine Nitrate Urine Bilirubin Urine Urobilinogen Ur Leukocyte Esterase Urine RBC Urine WBC Amorphous Sediment Urine Bacteria Urine Mucus Micro UA Comment Ur Microscopic Review Urine Culture Comments Urine Eosinophils Ur Random Creatinine Ur Random Sodium Random Vancomycin Phenytoin 05/19/18 05/19/18 05/19/18 11:00 11:55 13:24 WBC RBC Hgb Hct MCV MCH MCHC RDW Plt Count MPV Neut % (Auto) Lymph % (Auto) Holt % (Auto) Eos % (Auto) Baso % (Auto) Neut # (Auto) Lymph # (Auto) Holt # (Auto) Eos # (Auto) Baso # (Auto) WBC Differential Differential Comment APTT Puncture Site Left radial Patient Temperature 98.6 O2 Saturation 94 ABG pH 7.47 H ABG pCO2 34 L ABG pO2 79 ABG HCO3 24 ABG O2 Content 13.0 ABG Base Excess 0.5 ABG Methemoglobin 1.1 David Test Present Hemoglobin 9.7 L Carboxyhemoglobin 1.1 O2 Delivery Device Ventilator Vent Setting Ps [id number] Inspired O2 40 Critical Value No Sodium Potassium Chloride Carbon Dioxide Anion Gap BUN Creatinine Estimated GFR POC Glucose 137 H Random Glucose Lactic Acid Calcium Phosphorus Magnesium Total Bilirubin AST ALT Alkaline Phosphatase Ammonia Total Creatine Kinase Troponin I Total Protein Albumin Urine Color Yellow Urine Clarity Hazy H Urine pH 5.0 Ur Specific [place] 1.011 Urine Protein 30 H Urine Glucose (UA) Negative Urine Ketones Negative Urine Occult Blood Small H Urine Nitrate Negative Urine Bilirubin Negative Urine Urobilinogen Less than 2 Ur Leukocyte Esterase Negative Urine RBC 9 H Urine WBC 2 Amorphous Sediment Rare H Urine Bacteria Rare H Urine Mucus Few H Micro UA Comment Cath-culture ind Ur Microscopic Review Not Reportable Urine Culture Comments Cath-cult indicated Urine Eosinophils Ur Random Creatinine Ur Random Sodium Random Vancomycin Phenytoin 05/19/18 05/19/18 05/19/18 16:02 18:31 21:30 WBC RBC Hgb Hct MCV MCH MCHC RDW Plt Count MPV Neut % (Auto) Lymph % (Auto) Holt % (Auto) Eos % (Auto) Baso % (Auto) Neut # (Auto) Lymph # (Auto) Holt # (Auto) Eos # (Auto) Baso # (Auto) WBC Differential Differential Comment APTT Puncture Site Left radial Patient Temperature 98.6 O2 Saturation 97 ABG pH 7.39 ABG pCO2 39 ABG pO2 159 H ABG HCO3 23 ABG O2 Content 14.7 ABG Base Excess -1.3 ABG Methemoglobin 1.5 David Test Present Hemoglobin 10.6 L Carboxyhemoglobin 0.8 O2 Delivery Device Ventilator Vent Setting Prvc/ac Inspired O2 100 Critical Value No Sodium Potassium Chloride Carbon Dioxide Anion Gap BUN Creatinine Estimated GFR POC Glucose 140 H 97 Random Glucose Lactic Acid Calcium Phosphorus Magnesium Total Bilirubin AST ALT Alkaline Phosphatase Ammonia Total Creatine Kinase Troponin I Total Protein Albumin Urine Color Urine Clarity Urine pH Ur Specific [place] Urine Protein Urine Glucose (UA) Urine Ketones Urine Occult Blood Urine Nitrate Urine Bilirubin Urine Urobilinogen Ur Leukocyte Esterase Urine RBC Urine WBC Amorphous Sediment Urine Bacteria Urine Mucus Micro UA Comment Ur Microscopic Review Urine Culture Comments Urine Eosinophils Ur Random Creatinine Ur Random Sodium Random Vancomycin Phenytoin 05/19/18 05/20/18 05/20/18 23:36 03:49 04:38 WBC 18.5 H RBC 3.78 L Hgb 10.6 L Hct 32.8 L MCV 86.6 MCH 28.0 MCHC 32.4 RDW 15.2 Plt Count 313 D MPV 9.9 Neut % (Auto) 85.3 H Lymph % (Auto) 5.5 L Holt % (Auto) 4.3 Eos % (Auto) 3.7 Baso % (Auto) 1.2 Neut # (Auto) 15.7 H Lymph # (Auto) 1.0 Holt # (Auto) 0.8 Eos # (Auto) 0.7 H Baso # (Auto) 0.2 WBC Differential . Differential Comment Auto diff final APTT Puncture Site Patient Temperature O2 Saturation ABG pH ABG pCO2 ABG pO2 ABG HCO3 ABG O2 Content ABG Base Excess ABG Methemoglobin David Test Hemoglobin Carboxyhemoglobin O2 Delivery Device Vent Setting Inspired O2 Critical Value Sodium Potassium Chloride Carbon Dioxide Anion Gap BUN Creatinine Estimated GFR POC Glucose 134 H 91 Random Glucose Lactic Acid Calcium Phosphorus Magnesium Total Bilirubin AST ALT Alkaline Phosphatase Ammonia Total Creatine Kinase Troponin I Total Protein Albumin Urine Color Urine Clarity Urine pH Ur Specific [place] Urine Protein Urine Glucose (UA) Urine Ketones Urine Occult Blood Urine Nitrate Urine Bilirubin Urine Urobilinogen Ur Leukocyte Esterase Urine RBC Urine WBC Amorphous Sediment Urine Bacteria Urine Mucus Micro UA Comment Ur Microscopic Review Urine Culture Comments Urine Eosinophils Ur Random Creatinine Ur Random Sodium Random Vancomycin Phenytoin 05/20/18 05/20/18 05/20/18 04:38 04:38 08:01 WBC RBC Hgb Hct MCV MCH MCHC RDW Plt Count MPV Neut % (Auto) Lymph % (Auto) Holt % (Auto) Eos % (Auto) Baso % (Auto) Neut # (Auto) Lymph # (Auto) Holt # (Auto) Eos # (Auto) Baso # (Auto) WBC Differential Differential Comment APTT Puncture Site Patient Temperature O2 Saturation ABG pH ABG pCO2 ABG pO2 ABG HCO3 ABG O2 Content ABG Base Excess ABG Methemoglobin David Test Hemoglobin Carboxyhemoglobin O2 Delivery Device Vent Setting Inspired O2 Critical Value Sodium 144 Potassium 3.7 Chloride 109 H Carbon Dioxide 26.6 Anion Gap 8 BUN 75 H Creatinine 4.61 H Estimated GFR 13 L POC Glucose 115 H Random Glucose 96 Lactic Acid Calcium 7.8 L Phosphorus 5.5 H Magnesium 2.7 H Total Bilirubin 0.3 AST 19 ALT 36 Alkaline Phosphatase 108 Ammonia 27 Total Creatine Kinase Troponin I 2.23 H* Total Protein 5.7 L Albumin 1.9 L Urine Color Urine Clarity Urine pH Ur Specific [place] Urine Protein Urine Glucose (UA) Urine Ketones Urine Occult Blood Urine Nitrate Urine Bilirubin Urine Urobilinogen Ur Leukocyte Esterase Urine RBC Urine WBC Amorphous Sediment Urine Bacteria Urine Mucus Micro UA Comment Ur Microscopic Review Urine Culture Comments Urine Eosinophils Ur Random Creatinine Ur Random Sodium Random Vancomycin 31.9 Phenytoin 9.9 L 05/20/18 11:01 WBC RBC Hgb Hct MCV MCH MCHC RDW Plt Count MPV Neut % (Auto) Lymph % (Auto) Holt % (Auto) Eos % (Auto) Baso % (Auto) Neut # (Auto) Lymph # (Auto) Holt # (Auto) Eos # (Auto) Baso # (Auto) WBC Differential Differential Comment APTT Puncture Site Patient Temperature O2 Saturation ABG pH ABG pCO2 ABG pO2 ABG HCO3 ABG O2 Content ABG Base Excess ABG Methemoglobin David Test Hemoglobin Carboxyhemoglobin O2 Delivery Device Vent Setting Inspired O2 Critical Value Sodium Potassium Chloride Carbon Dioxide Anion Gap BUN Creatinine Estimated GFR POC Glucose 153 H Random Glucose Lactic Acid Calcium Phosphorus Magnesium Total Bilirubin AST ALT Alkaline Phosphatase Ammonia Total Creatine Kinase Troponin I Total Protein Albumin Urine Color Urine Clarity Urine pH Ur Specific [place] Urine Protein Urine Glucose (UA) Urine Ketones Urine Occult Blood Urine Nitrate Urine Bilirubin Urine Urobilinogen Ur Leukocyte Esterase Urine RBC Urine WBC Amorphous Sediment Urine Bacteria Urine Mucus Micro UA Comment Ur Microscopic Review Urine Culture Comments Urine Eosinophils Ur Random Creatinine Ur Random Sodium Random Vancomycin Phenytoin Result Diagrams: 05/21/18 03:56 05/21/18 01:33 Microbiology: Microbiology 05/19/18 08:21 Aerobic Blood Culture - Preliminary Blood - Peripheral No growth in 1 day Anaerobic Blood Culture - Preliminary No growth in 1 day 05/19/18 08:10 Aerobic Blood Culture - Preliminary Blood - Peripheral No growth in 1 day Anaerobic Blood Culture - Preliminary No growth in 1 day 05/19/18 10:40 Gram Stain - Final Sputum - Endotracheal Imaging: Impressions Chest X-Ray 05/19/18 00:00 CONCLUSION: 1. Worsening severe diffuse infiltrates consistent with severe pulmonary edema or pneumonia. Clinical correlation is recommended. 2. Endotracheal tube has its tip approximately 1 cm above the fannie. This could be pulled back 2 cm for more optimal positioning. Chest X-Ray 05/20/18 06:00 CONCLUSION: Improved airspace disease since May 19 on the left side. No new infiltrate. Procedures: 05/08: Endotracheal intubation 05/12: Left IJ central line 05/09 medically extubated, later REintubated. Assessment and Plan - Disease Oriented Problem List (1) Acute respiratory failure (2) Hypoxic encephalopathy (3) Ischemic cardiomyopathy (4) Cardiac arrest Pertinent Non-Medical Issues: Psychosocial: Patient originally from [place], moved to [place] 14 years ago. for the past 14 years. Has 1 biological son, Valente who is 42 y/o and resizing [place]. 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 No service. Spiritual: No sikhism affiliation reported. Legal: No advanced directives completed. Ethical issues impacting care: No ethical issues have been identified. Important Contacts: Patient's Dyan . Prognosis: Mr. Siddiqui is a 63-year-old male with no significant past medical history who presented to ED status post V. fib/V. tach arrest. Clinical course complicated by persistent post anoxic seizures. Initially poor neurologic assessment concern for anoxic injury. Some improvement over the past few days now following commands and tolerating ventilator weaning. Plan for medical extubation, though continues to remain Patient at high risk for further complications, continued decline and . Code Status: Alternative Code (intub only) Plan: * CODE STATUS:ALT code. INTUBATION ONLY, no cardiac resuscitation * HEALTHCARE DECISION-MAKING: Patient unable to participate in medical decision making in the setting of anoxic brain. Not likely to regain medical decision making capacity. No advance directives completed. As per [place] statue in the absence of AD, healthcare proxy decision making falls to patient's Dyan Siddiqui. has accepted this role and is fully supported by patient's sister and son. * GOALS OF CARE: reports that patient has verbalized in many occasions that "if he was unable to return to his independent self (talking, walking, independent with ADL's, riding his motorcycle), any other alternative would NOT be an acceptable quality of life". * 05/19/18 goals at this point are semi-aggressive wishing to maximize current treatment options given his neurologic improvement. further verbalizes reintubation only/no cardiac resuscitation. She is open to ongoing discussions as clinical course evolves. Possible patient neuro status may improve enough that he can participate as well. verbalizes that he absolutely would not want a tracheostomy or feeding tube. * 05/20 reintubated 05/19, pt unable to participate in discussions. * SYMPTOMS: * =Pain: Secondary to multiple lines, intubation, bedrest. Fentanyl drip currently on hold for planned medical extubation. Morphine 2 mg IV every 2 hours available as needed. Will monitor for signs and symptoms of pain, comfort level going forward. today calm, no signs of distress. No further recommendations at this time. = Dyspnea: Has been on mechanical vent since initial cardiac arrest event. Some concern for anoxic brain injury. Neurologic improvement in the past few days , medical extubation 05/19 morning, later reintubated due to pulmonary edema/volume overload. planned for dialysis, critical care still hopeful for medical extubation once fluid status corrected. = Agitation/encephalopathy: Status post cardiac arrest, and developed seizure activity. Concern for anoxic brain injury. Patient with significant agitation requiring multiple sedatives while on the mechanical vent. medical extubation yesterday.later reintubated, today calm, on [facility] vent + diprivan. Slow improvement in neurological assessments following commands. Ongoing evaluations will be needed to continue to assess neurologic function and recovery. Neurology following. * Palliative care to continue to follow-up for further clarifications of goals of care, family support as patient's clinical course continues to evolve. Attestation Attestation: To help prompt me to consider important information that might be impacting today's encounter and assessment, information from prior notes written by myself or my colleagues may have been "brought forward" into today's note. My signature on this note, however, is an attestation that I personally performed the exam, history, and/or decision-making noted today, and, unless otherwise indicated, the interactions with patient, family, and staff as well as the review of records all occurred today. I also attest that the listed assessment and stated plan reflect my best clinical judgment today based on the combination of historical information, prior notes, and today's exam/ interactions. When time spent is documented, it refers only to time spent today by the signer, or if indicated, combined time spent today by collaborating physician/nurse practitioner.
--- NOTE | 2018-05-20 13:04 | P.PCN ---
Date of procedure: 05/20/18 Pre-op diagnosis: Acute renal failure Post-op diagnosis: same Procedure: DATE: 05/20/2018 Dialysis catheter PLACEMENT: Right internal jugular vein. Ultrasound-guided INDICATION: Hemodialysis access CONSENT Informed consent for procedure was obtained from . DESCRIPTION OF THE PROCEDURE The patient was placed in supine position. The skin was cleansed with Chloraprep. Additional barrier precautions included large sterile drape, sterile gloves, sterile gown, face mask, and hat. 1 % lidocaine was used for local anesthesia. Under direct ultrasound guidance and on initial attempt, the vein was accessed with an introducer needle. The guide wire was advanced and the tract was dilated x4. Using Seldinger technique a 12 [place] 20 cm dual- lumen hemodialysis catheter catheter was advanced to a depth of 16 centimeters. The guide wire was removed. All ports had good return of dark venous blood and flushed easily with saline. The central line was secured with 2.0 silk. A sterile dressing with antibiotic disc was applied. ESTIMATED BLOOD LOSS: Minimal COMPLICATIONS: No apparent complications. STAT chest x-ray pending at time of dictation
--- NOTE | 2018-05-20 14:13 | XR ---
EXAM DATE: 05/20/2018 2:08 PM EST AGE/SEX: 63 years / Male INDICATIONS: Central line placement. CLINICAL DATA: This is the patient's initial encounter. Patient reports that signs and symptoms have been present for 4 - 6 days and indicates a pain score of Nonresponsive. MEDICAL/SURGICAL HISTORY: Seizures. myocardial infarction None. COMPARISON: [facility], CHEST 1V SINGLE AP, 05/20/2018. . FINDINGS: There is a new right IJ dialysis catheter the catheter tip overlies the SVC. The left-sided central l ine, the endotracheal tube and nasogastric tube all appear in satisfactory position. There is diffuse infiltrate within both lungs. There is no pneumothorax. There is no significant pleu ral effusion. The heart is at the upper limits of normal in size. CONCLUSION: 1. New dialysis catheter placed via the right IJ catheter appears in good position. 2. Continued bilateral parenchymal infiltrates. 3. Endotracheal tube, central line and nasogastric tube in satisfactory position. Electronically signed by: Gregg Reilly MD 05/20/2018 2:12 PM EST
[2018-05-20 14:22] LABS: Amorphous Sediment,Urine Occasional /hpf; Bacteria,Urine Rare /hpf; Bilirubin,Urine Negative (Negative); Clarity,Urine Hazy (Clear); Color,Urine Straw (Yellw/Straw); Glucose,Urine (UA) Negative (Negative); Leukocyte Esterase,Urine Moderate (Negative); Mucus,Urine Few /lpf (Occasional); Nitrite,Urine Negative (Negative); Specific Gravity,Urine 1.006 (1.002-1.035)
[2018-05-20] MEDS: Pantoprazole Inj 40 MG Vial IV.PUSH SCH (15:54)
--- NOTE | 2018-05-20 16:21 | P.PNCC ---
Subjective Subjective Remarks/Hospital Course: 63-year-old male presents to emergency department intubated after VF/VT arrest. He had to be defibrillated twice in the field, afterwards clear STEMI criteria was called by [facility]. Apparently heard a collapse in the next room found the patient unresponsive called 9 1. Apparently total downtime was about 10 minutes and had a very quick Rask. Blood pressure was little low and dopamine drip was started in the field. Patient also had amiodarone started in the field. Initially the STEMI alert was called brain demonstrated punctate hyperdensity characteristic of hemorrhage in the right mid araseli in the STEMI alert was canceled. The patient has been admitted to ICU for hypothermia protocol treatment post cardiac arrest. 05/09: Discussed with at bedside. Currently on target temperature monitoring. EEG performed. Replacing potassium and phosphorus this a.m. 05/10: Currently temperature is a 97. Has been rewarmed from target temperature monitoring. EEG revealed no epileptic activity. Replace potassium currently. MRI brain revealed no signs of hemorrhage. Will start on heparin drip WI protocol 900 units an hour and provide aspirin. Carvedilol started by cardiology during the a.m. 05/11: Phosphorus being replaced. Weaning off sedation currently. Rewarmed to 37 C. No problem. Tolerating tube feeds currently at 30 cc now. 05/12: Currently resting in bed. New central has been placed and targeted temperature monitoring Quatro catheter has been removed. Seizures overnight. Currently on fosphenytoin and levetiracetam. Remains on midazolam drip. Updated at bedside. 05/13: Low-grade temperature during the night continues greater than 99.0., Noted blood cultures negative growth to date. Remains encephalopathic .EEG revealed continued epileptiform activity. Patient noted phenobarbital level this a.m. subtherapeutic at 3.1. Noted persistent leukocytosis, bilateral pulmonary opacities, sputum culture pending. Palliative care has been consulted. 05/14: Sedative discontinued early this a.m.. Noted spontaneous eye opening with neurologist Dr. Connor at the bedside, not following any commands. EEG revealed a few spikes, patient continues on anticonvulsant regimen and seizure precautions. Noted hypertension systolic blood pressure greater than 170 Vasotec reinitiated. discussed findings with Dr. Connor at bedside we will continue to monitor discontinue all sedatives and continually evaluate neurological status. Plan this afternoon to meet with patient's Mrs. Siddiqui and palliative care. 05/15: Off all sedation noted spontaneous movement but not following any commands with excessive yawning and grimacing noted. Patient placed back on propofol low-dose infusion. Palliative care conference with patient's reveal patient to be placed in a no CPR CODE STATUS at this time. Discussion with Dr. Connor, neurology yesterday we will continue to monitor and evaluate optimizing care and continued evaluation at this time. No change in respiratory requirements however chest x-ray noted bilateral pleural effusions IV infusions decreased patient now normotensive carvedilol reinitiated. 05/16: Afebrile. Per RN yesterday the patient followed commands with left upper extremity. Upon my evaluation paid patient noted to be off sedation spontaneous eye opening and tracking. Excessive yawning and grimacing also noted. Propofol has been discontinued Precedex to maintain ventilator synchrony if required. Patient continues on heparin infusion. Leukocytosis has been resolved. Review of EEG per neurology only a few sharp spikes phenobarbital has been discontinued. 05/17: Patient remains on Precedex infusion @ 1.2 mcg/kg/hr. Per report the patient was extremely agitated early this a.m.. Upon evaluation of the patient , he is responding to commands squeezing hands bilaterally, and also bilateral movement of lower extremities. Patient is nodding head to yes and no questions , and attempting to talk. 05/18: Afebrile. Remains on dexmedetomidine drip at 0.7 mg/kg/h. On low-dose propofol due to agitation. Arousable and does follow commands. Tolerating tube feeding. Currently normal sinus rhythm. 05/19: Creatinine currently 4.7. Arousable and quite agitated on the ventilator. Will attempt to wean off and hold tube feeds and attempt x-ray at 11 AM today. Noted elevated white blood count and persistent fevers. Pancultured today. Subjective: 05/20: Dialysis catheter placed today right IJ. -3 L. Fevers or bleeding. Removed left IJ CVL. FiO2 down to 50% PEEP down to 10. Much improved respiratory status. Starting on tube feeding. Objective Vital Signs / I&O: Vital Signs 05/19/18 17:05 05/19/18 17:15 05/19/18 17:30 Temperature Pulse Rate 97 H 105 H Respiratory Rate 21 Blood Pressure 187/93 H 198/112 H Pulse Oximetry 92 L 97 91 L 05/19/18 17:45 05/19/18 18:00 05/19/18 18:15 Temperature Pulse Rate 96 H 93 H 91 H Respiratory Rate Blood Pressure 158/76 H 154/75 H 141/66 H Pulse Oximetry 97 98 98 05/19/18 18:30 05/19/18 18:45 05/19/18 18:46 Temperature Pulse Rate 91 H 90 Respiratory Rate Blood Pressure 124/55 L 122/57 L Pulse Oximetry 99 97 100 05/19/18 19:00 05/19/18 19:15 05/19/18 19:30 Temperature Pulse Rate 90 86 84 Respiratory Rate Blood Pressure 129/61 127/60 128/62 Pulse Oximetry 98 98 97 05/19/18 19:45 05/19/18 19:57 05/19/18 19:59 Temperature Pulse Rate 84 82 Respiratory Rate 18 18 Blood Pressure 129/67 Pulse Oximetry 97 97 05/19/18 20:00 05/19/18 20:15 05/19/18 20:30 Temperature 98.8 F Pulse Rate 82 81 80 Respiratory Rate Blood Pressure 129/69 126/76 126/73 Pulse Oximetry 96 95 95 05/19/18 20:45 05/19/18 21:00 05/19/18 21:15 Temperature Pulse Rate 80 81 80 Respiratory Rate Blood Pressure 116/64 127/70 125/73 Pulse Oximetry 96 96 96 05/19/18 21:30 05/19/18 21:45 05/19/18 22:00 Temperature Pulse Rate 81 83 84 Respiratory Rate Blood Pressure 133/75 150/79 H 136/69 Pulse Oximetry 96 95 95 05/19/18 22:15 05/19/18 22:30 05/19/18 22:45 Temperature Pulse Rate 83 81 80 Respiratory Rate Blood Pressure 131/68 112/60 106/66 Pulse Oximetry 95 96 95 05/19/18 23:00 05/19/18 23:15 05/19/18 23:30 Temperature Pulse Rate 79 79 78 Respiratory Rate Blood Pressure 100/62 108/65 114/63 Pulse Oximetry 96 96 96 05/19/18 23:38 05/20/18 00:00 05/20/18 00:30 Temperature 99.3 F Pulse Rate 79 79 Respiratory Rate 18 18 Blood Pressure 129/70 Pulse Oximetry 97 96 05/20/18 01:00 05/20/18 02:00 05/20/18 03:00 Temperature Pulse Rate 78 80 81 Respiratory Rate Blood Pressure 127/65 119/67 137/69 Pulse Oximetry 96 98 97 05/20/18 04:00 05/20/18 04:02 05/20/18 04:05 Temperature 99.4 F Pulse Rate 82 82 Respiratory Rate 18 18 Blood Pressure 150/76 H Pulse Oximetry 98 98 05/20/18 05:00 05/20/18 05:02 05/20/18 06:00 Temperature Pulse Rate 92 H 90 87 Respiratory Rate Blood Pressure 126/103 H 170/76 H 129/63 Pulse Oximetry 98 98 05/20/18 07:00 05/20/18 08:00 05/20/18 09:00 Temperature Pulse Rate 81 81 81 Respiratory Rate 19 Blood Pressure 131/65 120/62 Pulse Oximetry 98 98 05/20/18 09:47 05/20/18 10:55 05/20/18 12:00 Temperature Pulse Rate 75 74 Respiratory Rate 18 18 18 Blood Pressure 121/64 Pulse Oximetry 98 98 05/20/18 14:07 05/20/18 14:59 Temperature Pulse Rate 81 Respiratory Rate 18 18 Blood Pressure Pulse Oximetry 99 Intake & Output 05/19/18 05/20/18 05/20/18 18:59 06:59 18:59 Intake Total 1476.2 / 1476.2 1120 / 1120 900 / 900 Output Total 650 / 650 1974 / 1974 3000 / 3000 Balance 826.2 / 826.2 -855 / -855 -2100 / -2100 Weight 82.7 kg Intake: IV 1476.2 / 1476.2 1000 / 1000 900 / 900 Precedex Inj 1,000 MCG In NS 120 / 120 Inj 240 ML @ 0.2 MCG/KG/HR 4.05 mls/hr IV.CONT TITRATE PRN Rx# :[id number] Diprivan 1000 mg/100 ml Inj 1, 38.2 / 38.2 300 / 300 200 / 200 000 mg In 100 ml @ 5 MCG/KG/MIN 2.547 mls/hr IV.CONT TITRATE PRN Rx#:[id number] 1/2 Normal Saline Inj 1,000 ML 318 / 318 @ 84 mls/hr IV.CONT .[id number] [facility] Rx#:[id number] Flexbumin 25% Inj 100 ML @ 60 100 / 100 100 / 100 mls/hr IV.SIG Q12H [facility] Rx#: [id number] Zyvox 600 mg Premix 300 ML @ 300 / 300 300 / 300 300 mls/hr IV.SIG Q12H [facility] Rx#: [id number] Zosyn 2.25 GM Premix 50 ML @ 50 / 50 50 / 50 100 mls/hr IV.SIG Q8H [facility] Rx#: [id number] 1/2 Normal Saline Inj 1,000 ML 1000 / 1000 @ Wide Open IV.SIG BOLUS ONE Rx #:[id number] fentaNYL 10 mcg/mL Premix Drip 250 / 250 250 / 250 2,500 mcg In 250 ml @ 50 MCG/HR 5 mls/hr IV.SIG TITRATE PRN Rx #:[id number] Tube Irrigant 120 / 120 Output: Hemodialysis Amount 3000 / 3000 Urine Amount (Catheter) 650 / 650 1525 / 1525 Condom 225 / 225 Indwelling Temp Sensing 650 / 650 Catheter Straight 1300 / 1300 Gastric Drainage 450 / 450 Orogastric Tube 450 / 450 Other: # Voids 1 Date of Last Bowel Movement 05/20/18 05/19/18 # Bowel Movements 1 Result Diagrams: 05/20/18 04:38 05/20/18 04:38 Other Results: Microbiology 05/19/18 10:40 Sputum - Endotracheal Gram Stain - Final 05/19/18 10:40 Sputum - Endotracheal Sputum Culture - Preliminary S. aureus MRSA 05/19/18 11:55 Catheterized Urine Urine Culture - Preliminary No growth in 24 hours 05/19/18 08:21 Blood - Peripheral Aerobic Blood Culture - Preliminary No growth in 1 day 05/19/18 08:21 Blood - Peripheral Anaerobic Blood Culture - Preliminary No growth in 1 day 05/19/18 08:10 Blood - Peripheral Aerobic Blood Culture - Preliminary No growth in 1 day 05/19/18 08:10 Blood - Peripheral Anaerobic Blood Culture - Preliminary No growth in 1 day 05/13/18 11:50 Sputum - Endotracheal Gram Stain - Final 05/13/18 11:50 Sputum - Endotracheal Sputum Culture - Final S. aureus MRSA 05/09/18 16:00 Blood - Line Aerobic Blood Culture - Final No growth in 5 days 05/09/18 16:00 Blood - Line Anaerobic Blood Culture - Final No growth in 5 days 05/08/18 21:38 Blood - Peripheral Aerobic Blood Culture - Final No growth in 5 days 05/08/18 21:38 Blood - Peripheral Anaerobic Blood Culture - Final No growth in 5 days 05/08/18 21:33 Blood - Peripheral Aerobic Blood Culture - Final No growth in 5 days 05/08/18 21:33 Blood - Peripheral Anaerobic Blood Culture - Final No growth in 5 days 05/08/18 22:30 Catheterized Urine Urine Culture - Final No growth in 48 hours Imaging: Chest X-Ray 05/08/18 20:43 CONCLUSION: 1. ET tube in good position. 2. Gastric tube side-port is in the lower chest and the tube needs to be advanced at least [address] 05/08/18 20:43 CONCLUSION: 1. Punctate hyperdensity characteristic of hemorrhage in the right mid araseli. 2. No acute findings in the supratentorial brain. . Cervical Spine CT 05/08/18 20:44 CONCLUSION: 1. Moderate degenerative changes at C6-7. 2. Otherwise negative exam. Head MRI 05/10/18 00:00 CONCLUSION: 1. No evidence of acute hemorrhage within the right araseli. 2. No acute infarct, acute hemorrhage, midline shift or extra-axial fluid collection. 3. Mucosal thickening involving the left maxillary sinus, bilateral anterior ethmoid air cells and bilateral sphenoid sinuses. 4. Some fluid within the mastoid air cells bilaterally. Chest X-Ray 05/10/18 06:00 CONCLUSION: Infiltrating the medial right lower lobe or right middle lobe. Infiltrate is increased from the previous study Head MRA 05/10/18 06:52 CONCLUSION: 1. Negative MRA [place] ([place] [facility] [place]) non contrast. Chest X-Ray 05/11/18 06:00 CONCLUSION: Bilateral pleural effusions right greater than left. ET tube in good position. Chest X-Ray 05/12/18 06:00 CONCLUSION: No change in bilateral opacity likely representing a combination of mild pulmonary edema/pleural effusions. Chest X-Ray 05/12/18 11:03 CONCLUSION: 1. Central line without pneumothorax. 2. Unchanged bilateral pleural effusions and bibasilar pulmonary infiltrates. Chest X-Ray 05/13/18 06:00 CONCLUSION: No significant interval change with persistent bilateral pulmonary parenchymal opacity and small bilateral pleural effusions. Chest X-Ray 05/15/18 00:00 CONCLUSION: No significant interval change with persistent bilateral pulmonary parenchymal opacity and bilateral pleural effusions. Chest X-Ray 05/17/18 04:00 CONCLUSION: Support apparatus unchanged. Stable basilar airspace pleural effusions. Abdomen/Bladder Ultrasound 05/18/18 00:00 CONCLUSION: 1. Negative renal ultrasound examination. 2. The urinary bladder is decompressed by Orellana catheter. Chest X-Ray 05/19/18 00:00 CONCLUSION: 1. Worsening severe diffuse infiltrates consistent with severe pulmonary edema or pneumonia. Clinical correlation is recommended. 2. Endotracheal tube has its tip approximately 1 cm above the fannie. This could be pulled back 2 cm for more optimal positioning. Chest X-Ray 05/19/18 06:00 CONCLUSION: Support apparatus unchanged and in satisfactory position. Basilar airspace disease and pleural effusions similar to May 17. Chest X-Ray 05/20/18 06:00 CONCLUSION: Improved airspace disease since May 19 on the left side. No new infiltrate. Chest X-Ray 05/20/18 13:02 CONCLUSION: 1. New dialysis catheter placed via the right IJ catheter appears in good position. 2. Continued bilateral parenchymal infiltrates. 3. Endotracheal tube, central line and nasogastric tube in satisfactory position. Objective Remarks: GENERAL: 63-year-old male currently orotracheally intubated SKIN: Warm and dry. No rash. HEAD: Atraumatic. Normocephalic. EYES: Pupils equal and round and minimally reactive bilaterally. No scleral icterus. No injection or drainage. ENT: No nasal bleeding or discharge. Mucous membranes pink and moist. NECK: Trachea midline. No JVD. Left IJ is clean dry and intact. Right IJ catheter is clean dry and intact. CARDIOVASCULAR: RRR S1, S2. No S4. RESPIRATORY: No accessory muscle use. Clear to auscultation. Breath sounds equal bilaterally. GASTROINTESTINAL: Abdomen soft, non-tender, nondistended. Hepatic and splenic margins not palpable. Normal active bowel sounds MUSCULOSKELETAL: Extremities without clubbing,. Trace to 1+ bilateral lower extremity edema NEUROLOGICAL: GCS 11T. Alert and responsive to commands moves all 4 extremities x4. Assessment and Plan - Assessment and Plan Plan: Neuro/Psych: Rule out anoxic encephalopathy Original CT brain on admission revealed possible 3 mm mid right araseli hemorrhage. Currently propofol infusion at 50mcgs per kilogram per minute/fentanyl drip at 250 stacey grams an hour for sedation/analgesia while intubated, to maintain ventilator synchrony. Daily sedation vacation Goal of RASS -0 Neurology/Dr. Connor following EEG completed 05/09 with no epileptic activity. Repeat 05/12 with sharp activity. Currently on fosphenytoin 300 mg daily. Discontinued levetiracetam secondary to acute kidney injury 05/16 Dilantin level noted therapeutic. Recheck level in a.m. 05/20 MRI brain revealed left maxillary, bilateral ethmoid and sphenoid sinusitis. MRA brain revealed normal examination. Continue scheduled dosing lactulose 30 cc twice daily Trend ammonia level GCS 11T-responsive to commands CV Out of hospital cardiac arrest/V. 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 Rayos. Melendez for carvedilol 3.125 mg twice daily, start aspirin 81 mg daily. Discontinued heparin drip. 05/12 Added enalapril 2.5 mg daily and atorvastatin 10 mg at night since MRI brain revealed no hemorrhage disContinue enalapril 2.5 mg daily in light of acute kidney injury Originally not candidate for cardiac catheterization due to pontine hemorrhage right mid araseli. This is been changed with MRI/A 2D echocardiogram revealed EF 30-35%. Ruptured chordae tendon possible involving mitral valve. Resp: Acute respiratory failurelikely aspiration with right lower lobe infiltrate and altered mental status PRVC ventilation Ventilator bundle Continue CPAP trial Head of bed at 30 degrees Albuterol/ipratropium aerosols every 4 hours with albuterol aerosols every 2 hours as needed dyspnea Chest x-ray revealed bilateral pulmonary opacities and small bilateral pleural effusions, still unchanged GI: Hyperammonia Vital 1.5 goal 60 cc output currently 60 cc an hour Pantoprazole for GI prophylaxis Docusate serum/senna 1 tablet twice daily for bowel regimen with lactulose 30 cc twice daily Follow-up on ammonia level in a.m. 05/20 : Orellana catheter placed for accurate I's and O's in a critical patient currentl Endo: Acute hyperglycemia Low TSH Sliding scale insulin with Accu-Cheks to maintain euglycemia. On insulin detemir 4 units twice daily TSH was 0.285. Normal free T4/total T3. Recheck 4-6-week HEME: Leukocytosis Normocytic anemia Monitor CBC daily. Follow trends. No indication for transfusion of blood products at this time Renal Acute kidney injury Creatinine currently within normal limits Acute I's and O's monitor urine output Avoid nephrotoxic medications. Discontinue enalapril. Discontinued vancomycin. Continue furosemide. Discontinue levetiracetam. Check renal ultrasound of/urine eosinophils and sodium and creatinine. ID: MRSA sputum positive 05/13 05/19 Monitor for signs and symptomatology infection Patient with aspiration. Discontinued vancomycin and piperacillin/tazobactam. Completed 7 days therapy. Currently on Linezolid and Pipracil/tazobactam restarted 05/19. Day #2. FEN: Hyperphosphatemia Hypermagnesia Replace electrolytes as clinically indicated Discontinue IV fluid MSK: PT evaluate and treat Access -Left CVL day 8 removed 05/20. Right IJ hemodialysis catheter day 1 placed . Prophylaxis - -GI pantoprazole - -DVT -SCD/heparin subcu Level 3 followup
--- NOTE | 2018-05-20 17:18 | P.PNNEU ---
Subjective Subjective Comments: no acute events. no sz reported Active Medications: Active Medications Acetaminophen (Tylenol) 650 mg PO Q6H PRN PRN Reason: PAIN 1-5 AND/OR FEVER >101F Last Admin: 05/16/18 21:30 Dose: 650 mg Acetaminophen (Tylenol) 650 mg PO UNSCH PRN PRN Reason: SEE LABEL COMMENTS Albuterol (Albuterol Neb (Prn)) 2.5 mg NEB Q2HR NEB PRN PRN Reason: DYSPNEA Last Admin: 05/17/18 19:38 Dose: 2.5 mg Albuterol (Duoneb Neb (Chao)) 1 ampul NEB Q4HR NEB [facility] Last Admin: 05/20/18 14:57 Dose: 1 ampul Amiodarone HCl (Cordarone) 400 mg PO DAILY [facility] Last Admin: 05/20/18 08:03 Dose: 400 mg Artificial Tears (Tears Naturale Opth Drops) 1 drop EACH EYE Q8H [facility] Last Admin: 05/20/18 14:00 Dose: 1 drop Aspirin (Aspirin Chew) 81 mg PO DAILY [facility] Last Admin: 05/20/18 08:02 Dose: 81 mg Atorvastatin Calcium (Lipitor) 10 mg PO HS [facility] Last Admin: 05/19/18 21:18 Dose: 10 mg Bisacodyl (Dulcolax Supp) 10 mg RECTAL DAILY PRN PRN Reason: SEVERE CONSITIPATION Carvedilol (Coreg) 3.125 mg PO BID [facility] Last Admin: 05/20/18 08:03 Dose: 3.125 mg Chlorhexidine Gluconate (Peridex 0.12% Oral Kit) 15 ml OROPHARYNG BID@0800, 2000 [facility] Last Admin: 05/20/18 08:02 Dose: 15 ml Clonidine HCl (Catapres) 0.1 mg PO UNSCH PRN PRN Reason: SEE LABEL COMMENTS Dextrose (D50w Vial) 50 ml IV.PUSH UNSCH PRN PRN Reason: PER HYPOGLYCEMIA PROTOCOL Diphenhydramine HCl (Benadryl) 25 mg PO UNSCH PRN PRN Reason: SEE LABEL COMMENTS Gelatin (Gelfoam 12 Mm/7 Mm Topical) 1 foam TOPICAL PRN PRN PRN Reason: help stop bleeding from site Gentamicin Sulfate (Gentamicin Inj) 20 mg OTHER WITH DIALYSIS PRN PRN Reason: Dwell Gentamycin Lock Glucagon (Glucagon Inj) 1 mg OTHER PRN PRN PRN Reason: for Hypoglycemia Protocol Heparin Sodium (Porcine) (Heparin Inj) 5,000 units SQ Q8HR [facility] Last Admin: 05/20/18 15:54 Dose: 5,000 units Heparin Sodium (Porcine) (Heparin Inj) 8,000 units OTHER WITH DIALYSIS PRN PRN Reason: for machine prime Heparin Sodium (Porcine) (Heparin Inj) 1,000 units OTHER WITH DIALYSIS PRN PRN Reason: Dwell Heparin to Fill Catheter Hydralazine HCl (Apresoline Inj) 10 mg IV.PUSH Q1H PRN PRN Reason: Sbp>140, Dbp>90 Last Admin: 05/10/18 08:00 Dose: 10 mg Albumin Human (Flexbumin 25% Inj) 100 mls @ 60 mls/hr IV.SIG Q12H [facility] Last Admin: 05/20/18 16:08 Dose: 60 mls/hr Fentanyl (Fentanyl 10 Mcg/Ml Premix Drip) 2,500 mcg in 250 mls @ 5 mls/hr IV.SIG TITRATE PRN; Protocol PRN Reason: Per Protocol Last Admin: 05/20/18 13:59 Dose: 50 mcg/hr, 5 mls/hr Propofol (Diprivan 1000 Mg/100 Ml Inj) 1,000 mg in 100 mls @ 2.547 mls/hr IV.CONT TITRATE PRN; Protocol PRN Reason: Per Protocol Last Admin: 05/20/18 13:59 Dose: 50 mcg/kg/min, 25.47 mls/hr Dexmedetomidine HCl 200 mcg/ (Sodium Chloride) 50 mls @ 4.24 mls/hr IV.CONT TITRATE PRN; Protocol PRN Reason: Per Protocol Piperacillin/Tazobactam/Dextrose (Zosyn 2.25 Gm Premix) 50 mls @ 100 mls/hr IV.SIG Q8H [facility] Last Infusion: 05/20/18 16:32 Dose: Infused Linezolid (Zyvox 600 Mg Premix) 300 mls @ 300 mls/hr IV.SIG Q12H [facility] Last Infusion: 05/20/18 09:29 Dose: Infused Sodium Chloride (Ns Inj) 1,000 mls @ 0 mls/hr OTHER .Q0M PRN PRN Reason: for prime and rinse back Sodium Chloride (Ns Inj) 1,000 mls @ 200 mls/hr OTHER .Q5H PRN PRN Reason: for dialyzer flush PRN Sodium Chloride (Ns Inj) 1,000 mls @ 0 mls/hr IV.CONT .Q0M PRN PRN Reason: hypotension / volume replace Albumin Human (Flexbumin 25% Inj) 100 mls @ 60 mls/hr IV.SIG WITH DIALYSIS PRN PRN Reason: hypotension / volume replace Insulin Aspart (Novolog Insulin Correctional Sugar Inj) 0 unit SQ Q4HR [facility]; Protocol Last Admin: 05/20/18 16:07 Dose: Not Given Insulin Detemir (Levemir Inj) 8 unit SQ BID [facility] Last Admin: 05/18/18 22:31 Dose: 8 unit Labetalol HCl (Trandate Inj) 10 mg IV.PUSH Q1H PRN PRN Reason: Sbp>140, Dbp>90, Hr>65 Last Admin: 05/10/18 14:30 Dose: 10 mg Lactulose (Lactulose Liq) 30 ml PO DAILY PRN PRN Reason: SEVERE CONSITIPATION Lactulose (Lactulose Liq) 30 ml PO BID [facility] Last Admin: 05/20/18 08:03 Dose: Not Given Lorazepam (Ativan Inj) 1 mg IV.PUSH Q1H PRN PRN Reason: SEE LABEL COMMENTS Mannitol (Mannitol Inj) 12.5 gm IV.PUSH UNSCH PRN PRN Reason: hypotension / volume replace Miscellaneous Medication () 1 each OROPHARYNG 0000,0400,1200,1600 [facility] Last Admin: 05/20/18 15:55 Dose: 1 each Morphine Sulfate (Morphine Inj) 2 mg IV.PUSH Q2H PRN PRN Reason: PAIN SCALE 6 TO 10 Last Admin: 05/16/18 21:28 Dose: 2 mg Mupirocin (Bactroban 2% Nasal Oint) 1 applicatio EACH NARE BID [facility] Last Admin: 05/20/18 08:02 Dose: 1 applicatio Nitroglycerin (Nitrostat Sl) 0.4 mg SL Q5M PRN PRN Reason: CHEST PAIN Ondansetron HCl (Zofran Inj) 4 mg IV.PUSH Q6H PRN PRN Reason: NAUSEA OR VOMITING Ondansetron HCl (Zofran Inj) 4 mg IV.PUSH UNSCH PRN PRN Reason: NAUSEA OR VOMITING Pantoprazole Sodium (Protonix Inj) 40 mg IV.PUSH Q24H [facility] Last Admin: 05/20/18 15:54 Dose: 40 mg Phenytoin Sodium (Dilantin) 300 mg PO HS [facility] Last Admin: 05/19/18 21:17 Dose: 300 mg Polyethylene Glycol (Miralax) 17 gm PO BID [facility] Last Admin: 05/20/18 08:03 Dose: Not Given Senna/Docusate Sodium (Lizbeth-Colace) 1 tab PO BID [facility] Last Admin: 05/20/18 08:03 Dose: Not Given Sennosides (Senokot) 17.2 mg PO Q12H PRN PRN Reason: Moderate Constipation Sodium Chloride (Ns Flush) 2 ml IV.FLUSH BID [facility] Last Admin: 05/20/18 08:03 Dose: 2 ml Sodium Chloride (Ns Flush) 2 ml IV.FLUSH PRN PRN PRN Reason: FLUSH AFTER USING IV ACCESS Sodium Chloride (Ns Flush) 0 ml IV.FLUSH DAILY [facility] Last Admin: 05/20/18 08:03 Dose: 2 ml Sodium Chloride (Ns Flush) 5 ml IV.FLUSH PRN PRN PRN Reason: flush each lumen during HD Sodium Chloride (Ns Flush) 0 ml IV.FLUSH PRN PRN PRN Reason: FLUSH AFTER USING IV ACCESS Allergies/Adverse Reactions: Allergies Allergy/AdvReac Type Severity Reaction Status Date / Time No Known Allergies Allergy Uncoded 02/17/15 12:05 Review of Systems All other systems reviewed negative except as stated in HPI, unobtainable due to endotracheal tube Physical Exam Vital signs: Vital Signs 05/19/18 17:30 05/19/18 17:45 05/19/18 18:00 Temperature Pulse Rate 105 H 96 H 93 H Respiratory Rate Blood Pressure 198/112 H 158/76 H 154/75 H Pulse Oximetry 91 L 97 98 05/19/18 18:15 05/19/18 18:30 05/19/18 18:45 Temperature Pulse Rate 91 H 91 H 90 Respiratory Rate Blood Pressure 141/66 H 124/55 L 122/57 L Pulse Oximetry 98 99 97 05/19/18 18:46 05/19/18 19:00 05/19/18 19:15 Temperature Pulse Rate 90 86 Respiratory Rate Blood Pressure 129/61 127/60 Pulse Oximetry 100 98 98 05/19/18 19:30 05/19/18 19:45 11/26/18 19:57 Temperature Pulse Rate 84 84 Respiratory Rate 18 Blood Pressure 128/62 129/67 Pulse Oximetry 97 97 97 05/19/18 19:59 05/19/18 20:00 05/19/18 20:15 Temperature 98.8 F Pulse Rate 82 82 81 Respiratory Rate 18 Blood Pressure 129/69 126/76 Pulse Oximetry 96 95 05/19/18 20:30 05/19/18 20:45 05/19/18 21:00 Temperature Pulse Rate 80 80 81 Respiratory Rate Blood Pressure 126/73 116/64 127/70 Pulse Oximetry 95 96 96 05/19/18 21:15 05/19/18 21:30 05/19/18 21:45 Temperature Pulse Rate 80 81 83 Respiratory Rate Blood Pressure 125/73 133/75 150/79 H Pulse Oximetry 96 96 95 05/19/18 22:00 05/19/18 22:15 05/19/18 22:30 Temperature Pulse Rate 84 83 81 Respiratory Rate Blood Pressure 136/69 131/68 112/60 Pulse Oximetry 95 95 96 05/19/18 22:45 05/19/18 23:00 05/19/18 23:15 Temperature Pulse Rate 80 79 79 Respiratory Rate Blood Pressure 106/66 100/62 108/65 Pulse Oximetry 95 96 96 05/19/18 23:30 05/19/18 23:38 05/20/18 00:00 Temperature 99.3 F Pulse Rate 78 79 79 Respiratory Rate 18 Blood Pressure 114/63 129/70 Pulse Oximetry 96 97 05/20/18 00:30 05/20/18 01:00 05/20/18 02:00 Temperature Pulse Rate 78 80 Respiratory Rate 18 Blood Pressure 127/65 119/67 Pulse Oximetry 96 96 98 05/20/18 03:00 05/20/18 04:00 05/20/18 04:02 Temperature 99.4 F Pulse Rate 81 82 Respiratory Rate 18 Blood Pressure 137/69 150/76 H Pulse Oximetry 97 98 98 05/20/18 04:05 05/20/18 05:00 05/20/18 05:02 Temperature Pulse Rate 82 92 H 90 Respiratory Rate 18 Blood Pressure 126/103 H 170/76 H Pulse Oximetry 98 05/20/18 06:00 05/20/18 07:00 05/20/18 08:00 Temperature Pulse Rate 87 81 81 Respiratory Rate 19 Blood Pressure 129/63 131/65 120/62 Pulse Oximetry 98 98 98 05/20/18 09:00 05/20/18 09:47 05/20/18 10:55 Temperature Pulse Rate 81 75 Respiratory Rate 18 18 Blood Pressure Pulse Oximetry 98 05/20/18 12:00 05/20/18 14:07 05/20/18 14:59 Temperature Pulse Rate 74 81 Respiratory Rate 18 18 18 Blood Pressure 121/64 Pulse Oximetry 98 99 05/20/18 16:00 05/20/18 16:20 Temperature Pulse Rate 84 Respiratory Rate 18 18 Blood Pressure 116/66 Pulse Oximetry 99 97 Intake & Output 05/19/18 05/20/18 05/20/18 18:59 06:59 18:59 Intake Total 1476.2 / 1476.2 1120 / 1120 950 / 950 Output Total 650 / 650 1974 / 1974 3000 / 3000 Balance 826.2 / 826.2 -855 / -85 -2049 / -2049 Weight 82.7 kg Intake: IV 1476.2 / 1476.2 1000 / 1000 950 / 950 Precedex Inj 1,000 MCG In NS 120 / 120 Inj 240 ML @ 0.2 MCG/KG/HR 4.05 mls/hr IV.CONT TITRATE PRN Rx# :[id number] Diprivan 1000 mg/100 ml Inj 1, 38.2 / 38.2 300 / 300 200 / 200 000 mg In 100 ml @ 5 MCG/KG/MIN 2.547 mls/hr IV.CONT TITRATE PRN Rx#:[id number] 1/2 Normal Saline Inj 1,000 ML 318 / 318 @ 84 mls/hr IV.CONT .[id number] [facility] Rx#:[id number] Flexbumin 25% Inj 100 ML @ 60 100 / 100 100 / 100 mls/hr IV.SIG Q12H [facility] Rx#: [id number] Zyvox 600 mg Premix 300 ML @ 300 / 300 300 / 300 300 mls/hr IV.SIG Q12H [facility] Rx#: [id number] Zosyn 2.25 GM Premix 50 ML @ 50 / 50 100 / 100 100 mls/hr IV.SIG Q8H [facility] Rx#: [id number] 1/2 Normal Saline Inj 1,000 ML 1000 / 1000 @ Wide Open IV.SIG BOLUS ONE Rx #:[id number] fentaNYL 10 mcg/mL Premix Drip 250 / 250 250 / 250 2,500 mcg In 250 ml @ 50 MCG/HR 5 mls/hr IV.SIG TITRATE PRN Rx #:[id number] Tube Irrigant 120 / 120 Output: Hemodialysis Amount 3000 / 3000 Urine Amount (Catheter) 650 / 650 1525 / 1525 Condom 225 / 225 Indwelling Temp Sensing 650 / 650 Catheter Straight 1300 / 1300 Gastric Drainage 450 / 450 Orogastric Tube 450 / 450 Other: # Voids 1 Date of Last Bowel Movement 05/20/18 05/19/18 # Bowel Movements 1 Narrative: GENERAL: in NAD, SKIN: Warm and dry. HEAD: Atraumatic. Normocephalic. ENT: Intubated RESPIRATORY: Intubated GASTROINTESTINAL: Abdomen soft, non-tender, nondistended. MUSCULOSKELETAL: Extremities without clubbing, cyanosis, or edema. No obvious deformities. NEUROLOGICAL: Intubated. alert, following with all 4 ext, ou approx 3-2, face sym, grimaces, appears to localize with all 4, tar heel and withdraws lillie le PSYCHIATRIC: Intubated - Constitutional no acute distress - Routine HEENT Exam Head: Present: normocephalic Eye: Present: EOMI - Urinary Catheter Management Indwelling Temp Sensing Catheter Cath placed during this visit: yes, but has since been removed by the nurse Reason for continuing: Not indwelling catheter Insertion date: 05/08/18 Insertion time: 22:40 Removal date: 05/19/18 Removal time: 12:00 Straight Cath placed during this visit: yes Reason for continuing: Not indwelling catheter Insertion date: 05/20/18 Insertion time: 00:00 Condom Cath placed during this visit: no Indwelling Urethral Catheter Cath placed during this visit: yes Reason for continuing: Hourly intake/output Insertion date: 05/20/18 Insertion time: 08:30 Objective Laboratory Results - last 24 hr 05/19/18 05/19/18 05/19/18 18:31 21:30 23:36 WBC RBC Hgb Hct MCV MCH MCHC RDW Plt Count MPV Neut % (Auto) Lymph % (Auto) [place] % (Auto) Eos % (Auto) Baso % (Auto) Neut # (Auto) Lymph # (Auto) Greene # (Auto) Eos # (Auto) Baso # (Auto) WBC Differential Differential Comment Puncture Site Left radial Patient Temperature 98.6 O2 Saturation 97 ABG pH 7.39 ABG pCO2 39 ABG pO2 159 H ABG HCO3 23 ABG O2 Content 14.7 ABG Base Excess -1.3 ABG Methemoglobin 1.5 David Test Present Hemoglobin 10.6 L Carboxyhemoglobin 0.8 O2 Delivery Device Ventilator Vent Setting Prvc/ac Inspired O2 100 Critical Value No Sodium Potassium Chloride Carbon Dioxide Anion Gap BUN Creatinine Estimated GFR POC Glucose 97 134 H Random Glucose Calcium Phosphorus Magnesium Total Bilirubin AST ALT Alkaline Phosphatase Ammonia Troponin I Total Protein Albumin Urine Color Urine Clarity Urine pH Ur Specific [place] Urine Protein Urine Glucose (UA) Urine Ketones Urine Occult Blood Urine Nitrate Urine Bilirubin Urine Urobilinogen Ur Leukocyte Esterase Urine RBC Urine WBC Urine WBC Clumps Amorphous Sediment Urine Bacteria Urine Mucus Micro UA Comment Ur Microscopic Review Urine Culture Comments Random Vancomycin Phenytoin 05/20/18 05/20/18 05/20/18 03:49 04:38 04:38 WBC 18.5 H RBC 3.78 L Hgb 10.6 L Hct 32.8 L MCV 86.6 MCH 28.0 MCHC 32.4 RDW 15.2 Plt Count 313 D MPV 9.9 Neut % (Auto) 85.3 H Lymph % (Auto) 5.5 L Greene % (Auto) 4.3 Eos % (Auto) 3.7 Baso % (Auto) 1.2 Neut # (Auto) 15.7 H Lymph # (Auto) 1.0 Greene # (Auto) 0.8 Eos # (Auto) 0.7 H Baso # (Auto) 0.2 WBC Differential . Differential Comment Auto diff final Puncture Site Patient Temperature O2 Saturation ABG pH ABG pCO2 ABG pO2 ABG HCO3 ABG O2 Content ABG Base Excess ABG Methemoglobin David Test Hemoglobin Carboxyhemoglobin O2 Delivery Device Vent Setting Inspired O2 Critical Value Sodium 144 Potassium 3.7 Chloride 109 H Carbon Dioxide 26.6 Anion Gap 8 BUN 75 H Creatinine 4.61 H Estimated GFR 13 L POC Glucose 91 Random Glucose 96 Calcium 7.8 L Phosphorus 5.5 H Magnesium 2.7 H Total Bilirubin 0.3 AST 19 ALT 36 Alkaline Phosphatase 108 Ammonia Troponin I 2.23 H* Total Protein 5.7 L Albumin 1.9 L Urine Color Urine Clarity Urine pH Ur Specific [place] Urine Protein Urine Glucose (UA) Urine Ketones Urine Occult Blood Urine Nitrate Urine Bilirubin Urine Urobilinogen Ur Leukocyte Esterase Urine RBC Urine WBC Urine WBC Clumps Amorphous Sediment Urine Bacteria Urine Mucus Micro UA Comment Ur Microscopic Review Urine Culture Comments Random Vancomycin 31.9 Phenytoin 9.9 L 05/20/18 05/20/18 05/20/18 04:38 08:01 11:01 WBC RBC Hgb Hct MCV MCH MCHC RDW Plt Count MPV Neut % (Auto) Lymph % (Auto) [place] % (Auto) Eos % (Auto) Baso % (Auto) Neut # (Auto) Lymph # (Auto) Greene # (Auto) Eos # (Auto) Baso # (Auto) WBC Differential Differential Comment Puncture Site Patient Temperature O2 Saturation ABG pH ABG pCO2 ABG pO2 ABG HCO3 ABG O2 Content ABG Base Excess ABG Methemoglobin David Test Hemoglobin Carboxyhemoglobin O2 Delivery Device Vent Setting Inspired O2 Critical Value Sodium Potassium Chloride Carbon Dioxide Anion Gap BUN Creatinine Estimated GFR POC Glucose 115 H 153 H Random Glucose Calcium Phosphorus Magnesium Total Bilirubin AST ALT Alkaline Phosphatase Ammonia 27 Troponin I Total Protein Albumin Urine Color Urine Clarity Urine pH Ur Specific [place] Urine Protein Urine Glucose (UA) Urine Ketones Urine Occult Blood Urine Nitrate Urine Bilirubin Urine Urobilinogen Ur Leukocyte Esterase Urine RBC Urine WBC Urine WBC Clumps Amorphous Sediment Urine Bacteria Urine Mucus Micro UA Comment Ur Microscopic Review Urine Culture Comments Random Vancomycin Phenytoin 05/20/18 05/20/18 11:45 16:07 WBC RBC Hgb Hct MCV MCH MCHC RDW Plt Count MPV Neut % (Auto) Lymph % (Auto) [place] % (Auto) Eos % (Auto) Baso % (Auto) Neut # (Auto) Lymph # (Auto) [place] # (Auto) Eos # (Auto) Baso # (Auto) WBC Differential Differential Comment Puncture Site Patient Temperature O2 Saturation ABG pH ABG pCO2 ABG pO2 ABG HCO3 ABG O2 Content ABG Base Excess ABG Methemoglobin David Test Hemoglobin Carboxyhemoglobin O2 Delivery Device Vent Setting Inspired O2 Critical Value Sodium Potassium Chloride Carbon Dioxide Anion Gap BUN Creatinine Estimated GFR POC Glucose 97 Random Glucose Calcium Phosphorus Magnesium Total Bilirubin AST ALT Alkaline Phosphatase Ammonia Troponin I Total Protein Albumin Urine Color Straw Urine Clarity Hazy H Urine pH 6.0 Ur Specific [place] 1.006 Urine Protein Negative Urine Glucose (UA) Negative Urine Ketones Negative Urine Occult Blood Small H Urine Nitrate Negative Urine Bilirubin Negative Urine Urobilinogen Less than 2 Ur Leukocyte Esterase Moderate H Urine RBC 2 Urine WBC 17 H Urine WBC Clumps Rare H Amorphous Sediment Occasional H Urine Bacteria Rare H Urine Mucus Few H Micro UA Comment Cath-culture ind Ur Microscopic Review Not Reportable Urine Culture Comments Cath-cult indicated Random Vancomycin Phenytoin Microbiology 05/19/18 10:40 Gram Stain - Final Sputum - Endotracheal Sputum Culture - Preliminary S. 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 fib arrest underlying code cool post-anoxic seizure on eeg MRI brain reviewed. No pontine hemorrhage. No diffusion restriction noted on DWI images. on dilantin/phb off keppra 2/2 ckd off phb last eeg 05/13 dil level >15 corrected Recommendation neuro much improved. following with all 4 ext f/u eeg. if improved will look at dc'ing dilantin f/u cx's extubation per [facility] follow exam
[2018-05-20] MEDS: Phenytoin Sodium 100 MG Capsule PO SCH (21:27)
[2018-05-21] MEDS: Insulin NovoLOG Aspart Correctional Sugar Inj SQ SCH ×7 (00:42→23:24)
[2018-05-21] MEDS: Oral Hygiene Kit OROPHARYNG SCH ×5 (01:42→23:24)
[2018-05-21] MEDS: fentaNYL 10 mcg/mL Premix Drip 2,500 MCG/250 ML BAG IV.SIG PRN ×3 (02:00→19:44)
[2018-05-21 02:20] LABS: Alanine Aminotransferase 25 U/L (12-78); Albumin 2.1 g/dL (3.4-5.0); Anion Gap 11 meq/L (5-15); Aspartate Aminotransferase 13 U/L (15-37); Blood Urea Nitrogen 60 mg/dL (7-18); Calcium 7.9 mg/dL (8.5-10.1); Carbon Dioxide 24.7 meq/L (21.0-32.0); Chloride 107 meq/L (98-107); Glomerular Filtration Rate 14 mL/min (>89); Glucose,Random 122 mg/dL (74-106); Magnesium 2.6 mg/dL (1.5-2.5); Phosphorus 5.5 mg/dL (2.5-4.9); Sodium 143 meq/L (136-145)
[2018-05-21] MEDS: Propofol 1000 mg/100 ml Inj 1,000 MG/100 ML BOTTLE IV.CONT PRN ×6 (02:24→23:09)
[2018-05-21 02:42] LABS: Alkaline Phosphatase 96 U/L (45-117); Total Protein 5.1 g/dL (6.4-8.2); Vancomycin,Random 24.6 Comment
[2018-05-21 03:15] LABS: Hepatitis A IgM Antibody Nonreactive (Nonreactive); Hepatitits B Surface Antigen Nonreactive (Nonreactive)
--- NOTE | 2018-05-21 03:22 | XR ---
EXAM DATE: 05/21/2018 3:17 AM EST AGE/SEX: 63 years / Male INDICATIONS: Respiratory failure. CLINICAL DATA: This is the patient's subsequent encounter. Patient reports that signs and symptoms h ave been present for 2 weeks and indicates a pain score of Nonresponsive. MEDICAL/SURGICAL HISTORY: . Seizures. Myocardial infarction Non-responsive. COMPARISON: [facility], CHEST 1V SINGLE AP, 05/20/2018. . FINDINGS: Endotracheal tube in good position. NG enters stomach. Right central line in superior vena cava. Bila teral mostly basilar airspace disease. Small right effusion. CONCLUSION: Stable to slight improvement in bilateral airspace disease. Support apparatus unchanged. Electronically signed by: Jay Silverio MD 05/21/2018 3:21 AM EST
[2018-05-21 04:29] LABS: Baso # (Auto) 0.1 th/mm3 (0.0-0.2); Baso % (Auto) 0.7 % (0.0-2.0); Eos # (Auto) 0.6 th/mm3 (0.0-0.4); Eos % (Auto) 4.5 % (0.0-4.0); Hematocrit 33.2 % (39.0-51.0); Hemoglobin 10.9 gm/dL (13.0-17.0); Lymph # (Auto) 0.9 th/mm3 (1.0-4.8); Lymph % (Auto) 6.1 % (9.0-44.0); Mean Corpuscular HGB Conc 32.9 % (32.0-36.0); Mean Corpuscular Hemoglobin 28.3 pg (27.0-34.0); Mean Corpuscular Volume 86.1 fL (80.0-100.0); Mean Platelet Volume 10.2 fL (7.0-11.0); Mono # (Auto) 0.9 th/mm3 (0.0-0.9); Mono % (Auto) 6.1 % (0.0-8.0); Neut # (Auto) 11.6 th/mm3 (1.8-7.7); Neut % (Auto) 82.6 % (16.0-70.0); Platelet Count 344 th/mm3 (150-450); Red Blood Count 3.86 mil/mm3 (4.50-5.90); Red Cell Distribution Width 15.1 % (11.6-17.2)
[2018-05-21] MEDS: Piperacil/Tazo 2.25 GM Premix 50 ML IV.SIG SCH ×3 (06:13→20:12)
[2018-05-21] MEDS: Artificial Tears Opth Drops 15 ML Bottle EACH EYE SCH ×3 (06:14→20:11)
[2018-05-21] MEDS: Albumin Human 25% Inj 100 ML IV.SIG SCH ×2 (06:14→16:25)
[2018-05-21] MEDS: Heparin - SQ 10,000 UNITS/ML Vial SQ SCH ×3 (06:14→23:08)
[2018-05-21] MEDS: Mupirocin 2% Nasal Oint Topical Syringe EACH NARE SCH ×2 (08:11→20:12)
[2018-05-21] MEDS: Chlorhexidine 0.12% Oral Kit 15 ML UDC OROPHARYNG SCH ×2 (08:11→20:12)
[2018-05-21] MEDS: Senna/Docusate Sodium 8.6/50 MG Tablet PO SCH ×2 (08:11→20:11)
[2018-05-21] MEDS: Polyethylene Glycol 3350 17 GM Packet PO SCH ×2 (08:11→20:12)
[2018-05-21] MEDS: Amiodarone 200 MG Tablet PO SCH (08:11)
[2018-05-21] MEDS: Pantoprazole Inj 40 MG Vial IV.PUSH SCH (12:49)
--- NOTE | 2018-05-21 13:15 | P.PNCC ---
Subjective Subjective Remarks/Hospital Course: 63-year-old male presents to emergency department intubated after VF/VT arrest. He had to be defibrillated twice in the field, afterwards clear STEMI criteria was called by [facility]. Apparently heard a collapse in the next room found the patient unresponsive called 9 1. Apparently total downtime was about 10 minutes and had a very quick Rask. Blood pressure was little low and dopamine drip was started in the field. Patient also had amiodarone started in the field. Initially the STEMI alert was called brain demonstrated punctate hyperdensity characteristic of hemorrhage in the right mid araseli in the STEMI alert was canceled. The patient has been admitted to ICU for hypothermia protocol treatment post cardiac arrest. 05/09: Discussed with at bedside. Currently on target temperature monitoring. EEG performed. Replacing potassium and phosphorus this a.m. 05/10: Currently temperature is a 97. Has been rewarmed from target temperature monitoring. EEG revealed no epileptic activity. Replace potassium currently. MRI brain revealed no signs of hemorrhage. Will start on heparin drip [place] protocol 900 units an hour and provide aspirin. Carvedilol started by cardiology during the a.m. 05/11: Phosphorus being replaced. Weaning off sedation currently. Rewarmed to 37 C. No problem. Tolerating tube feeds currently at 30 cc now. 05/12: Currently resting in bed. New central has been placed and targeted temperature monitoring Quatro catheter has been removed. Seizures overnight. Currently on fosphenytoin and levetiracetam. Remains on midazolam drip. Updated at bedside. 05/13: Low-grade temperature during the night continues greater than 99.0., Noted blood cultures negative growth to date. Remains encephalopathic .EEG revealed continued epileptiform activity. Patient noted phenobarbital level this a.m. subtherapeutic at 3.1. Noted persistent leukocytosis, bilateral pulmonary opacities, sputum culture pending. Palliative care has been consulted. 05/14: Sedative discontinued early this a.m.. Noted spontaneous eye opening with neurologist Dr. Connor at the bedside, not following any commands. EEG revealed a few spikes, patient continues on anticonvulsant regimen and seizure precautions. Noted hypertension systolic blood pressure greater than 170 Vasotec reinitiated. discussed findings with Dr. Connor at bedside we will continue to monitor discontinue all sedatives and continually evaluate neurological status. Plan this afternoon to meet with patient's Mrs. Siddiqui and palliative care. 05/15: Off all sedation noted spontaneous movement but not following any commands with excessive yawning and grimacing noted. Patient placed back on propofol low-dose infusion. Palliative care conference with patient's reveal patient to be placed in a no CPR CODE STATUS at this time. Discussion with Dr. Connor, neurology yesterday we will continue to monitor and evaluate optimizing care and continued evaluation at this time. No change in respiratory requirements however chest x-ray noted bilateral pleural effusions IV infusions decreased patient now normotensive carvedilol reinitiated. 05/16: Afebrile. Per RN yesterday the patient followed commands with left upper extremity. Upon my evaluation paid patient noted to be off sedation spontaneous eye opening and tracking. Excessive yawning and grimacing also noted. Propofol has been discontinued Precedex to maintain ventilator synchrony if required. Patient continues on heparin infusion. Leukocytosis has been resolved. Review of EEG per neurology only a few sharp spikes phenobarbital has been discontinued. 05/17: Patient remains on Precedex infusion @ 1.2 mcg/kg/hr. Per report the patient was extremely agitated early this a.m.. Upon evaluation of the patient , he is responding to commands squeezing hands bilaterally, and also bilateral movement of lower extremities. Patient is nodding head to yes and no questions , and attempting to talk. 05/18: Afebrile. Remains on dexmedetomidine drip at 0.7 mg/kg/h. On low-dose propofol due to agitation. Arousable and does follow commands. Tolerating tube feeding. Currently normal sinus rhythm. 05/19: Creatinine currently 4.7. Arousable and quite agitated on the ventilator. Will attempt to wean off and hold tube feeds and attempt x-ray at 11 AM today. Noted elevated white blood count and persistent fevers. Pancultured today. 05/20: Dialysis catheter placed today right IJ. -3 L. Fevers or bleeding. Removed left IJ CVL. FiO2 down to 50% PEEP down to 10. Much improved respiratory status. Starting on tube feeding. Subjective: 05/21: T-max 99.1. -3 L with hemodialysis yesterday and today. FiO2 much improved. Appears more comfortable on ventilator. Objective Vital Signs / I&O: Vital Signs 05/20/18 14:07 05/20/18 14:59 05/20/18 16:00 Temperature Pulse Rate 81 84 Respiratory Rate 18 18 18 Blood Pressure 116/66 Pulse Oximetry 99 99 05/20/18 16:20 05/20/18 19:38 05/20/18 19:45 Temperature Pulse Rate 81 Respiratory Rate 18 18 18 Blood Pressure Pulse Oximetry 97 97 05/20/18 20:00 05/20/18 21:00 05/20/18 22:00 Temperature 98.4 F Pulse Rate 82 79 81 Respiratory Rate Blood Pressure 102/55 L 116/59 L 99/55 L Pulse Oximetry 98 98 98 05/20/18 23:00 05/21/18 00:00 05/21/18 00:01 Temperature Pulse Rate 82 87 Respiratory Rate 23 18 Blood Pressure 131/68 122/67 Pulse Oximetry 99 98 94 L 05/21/18 01:00 05/21/18 02:00 05/21/18 03:00 Temperature Pulse Rate 84 83 86 Respiratory Rate Blood Pressure 103/56 L 107/57 L 111/58 L Pulse Oximetry 93 L 95 95 05/21/18 03:42 05/21/18 03:43 05/21/18 04:00 Temperature Pulse Rate 83 85 Respiratory Rate 16 18 Blood Pressure 97/56 L Pulse Oximetry 95 95 05/21/18 05:00 05/21/18 06:00 05/21/18 07:00 Temperature Pulse Rate 80 85 82 Respiratory Rate 16 Blood Pressure 119/60 105/56 L Pulse Oximetry 96 99 05/21/18 08:00 05/21/18 09:00 05/21/18 11:00 Temperature 97.8 F Pulse Rate 82 83 92 H Respiratory Rate 18 18 Blood Pressure 106/56 L Pulse Oximetry 99 05/21/18 12:00 05/21/18 12:30 Temperature 99.1 F Pulse Rate 90 Respiratory Rate 18 11 L Blood Pressure 124/63 Pulse Oximetry 100 100 Intake & Output 05/20/18 05/21/18 05/21/18 18:59 06:59 18:59 Intake Total 1156.1 / 1156.1 1100 / 1100 800 / 800 Output Total 4550 / 4550 1200 / 1200 3000 / 3000 Balance -3393.9 / -3393.9 -100 / -100 -2200 / -2200 Weight 80 kg Intake: IV 1156.1 / 1156.1 900 / 900 800 / 800 Bumex Inj 25 mg In 100 ml @ 0.5 6.1 / 6.1 MG/HR 2 mls/hr IV.CONT .Q24H JIM Rx#:[id number] Diprivan 1000 mg/100 ml Inj 1, 300 / 300 300 / 300 100 / 100 000 mg In 100 ml @ 5 MCG/KG/MIN 2.547 mls/hr IV.CONT TITRATE PRN Rx#:[id number] Flexbumin 25% Inj 100 ML @ 60 200 / 200 100 / 100 mls/hr IV.SIG Q12H JIM Rx#: [id number] Zyvox 600 mg Premix 300 ML @ 300 / 300 300 / 300 300 / 300 300 mls/hr IV.SIG Q12H JIM Rx#: [id number] Zosyn 2.25 GM Premix 50 ML @ 100 / 100 50 / 50 50 / 50 100 mls/hr IV.SIG Q8H JIM Rx#: [id number] fentaNYL 10 mcg/mL Premix Drip 250 / 250 250 / 250 250 / 250 2,500 mcg In 250 ml @ 50 MCG/HR 5 mls/hr IV.SIG TITRATE PRN Rx #:[id number] Water Bolus Amount 200 / 200 Output: Hemodialysis Amount 3000 / 3000 3000 / 3000 Urine Amount (Catheter) 950 / 950 900 / 900 Indwelling Urethral Catheter 950 / 950 900 / 900 Gastric Drainage 600 / 600 300 / 300 Orogastric Tube 600 / 600 300 / 300 Other: Date of Last Bowel Movement 05/20/18 05/21/18 05/21/18 # Bowel Movements 1 1 Result Diagrams: 05/21/18 03:56 05/21/18 01:33 Other Results: Microbiology 05/19/18 11:55 Catheterized Urine Urine Culture - Final No growth in 48 hours 05/19/18 08:21 Blood - Peripheral Aerobic Blood Culture - Preliminary No growth in 2 days 05/19/18 08:21 Blood - Peripheral Anaerobic Blood Culture - Preliminary No growth in 2 days 05/19/18 08:10 Blood - Peripheral Aerobic Blood Culture - Preliminary No growth in 2 days 05/19/18 08:10 Blood - Peripheral Anaerobic Blood Culture - Preliminary No growth in 2 days 05/19/18 10:40 Sputum - Endotracheal Gram Stain - Final 05/19/18 10:40 Sputum - Endotracheal Sputum Culture - Final S. aureus MRSA 05/13/18 11:50 Sputum - Endotracheal Gram Stain - Final 05/13/18 11:50 Sputum - Endotracheal Sputum Culture - Final S. aureus MRSA 05/09/18 16:00 Blood - Line Aerobic Blood Culture - Final No growth in 5 days 05/09/18 16:00 Blood - Line Anaerobic Blood Culture - Final No growth in 5 days 05/08/18 21:38 Blood - Peripheral Aerobic Blood Culture - Final No growth in 5 days 05/08/18 21:38 Blood - Peripheral Anaerobic Blood Culture - Final No growth in 5 days 05/08/18 21:33 Blood - Peripheral Aerobic Blood Culture - Final No growth in 5 days 05/08/18 21:33 Blood - Peripheral Anaerobic Blood Culture - Final No growth in 5 days 05/08/18 22:30 Catheterized Urine Urine Culture - Final No growth in 48 hours Imaging: Chest X-Ray 05/08/18 20:43 CONCLUSION: 1. ET tube in good position. 2. Gastric tube side-port is in the lower chest and the tube needs to be advanced at least [address] 05/08/18 20:43 CONCLUSION: 1. Punctate hyperdensity characteristic of hemorrhage in the right mid araseli. 2. No acute findings in the supratentorial brain. . Cervical Spine CT 05/08/18 20:44 CONCLUSION: 1. Moderate degenerative changes at C6-7. 2. Otherwise negative exam. Head MRI 05/10/18 00:00 CONCLUSION: 1. No evidence of acute hemorrhage within the right araseli. 2. No acute infarct, acute hemorrhage, midline shift or extra-axial fluid collection. 3. Mucosal thickening involving the left maxillary sinus, bilateral anterior ethmoid air cells and bilateral sphenoid sinuses. 4. Some fluid within the mastoid air cells bilaterally. Chest X-Ray 05/10/18 06:00 CONCLUSION: Infiltrating the medial right lower lobe or right middle lobe. Infiltrate is increased from the previous study Head MRA 05/10/18 06:52 CONCLUSION: 1. Negative MRA [place] ([place]) non contrast. Chest X-Ray 05/11/18 06:00 CONCLUSION: Bilateral pleural effusions right greater than left. ET tube in good position. Chest X-Ray 05/12/18 06:00 CONCLUSION: No change in bilateral opacity likely representing a combination of mild pulmonary edema/pleural effusions. Chest X-Ray 05/12/18 11:03 CONCLUSION: 1. Central line without pneumothorax. 2. Unchanged bilateral pleural effusions and bibasilar pulmonary infiltrates. Chest X-Ray 05/13/18 06:00 CONCLUSION: No significant interval change with persistent bilateral pulmonary parenchymal opacity and small bilateral pleural effusions. Chest X-Ray 05/15/18 00:00 CONCLUSION: No significant interval change with persistent bilateral pulmonary parenchymal opacity and bilateral pleural effusions. Chest X-Ray 05/17/18 04:00 CONCLUSION: Support apparatus unchanged. Stable basilar airspace pleural effusions. Abdomen/Bladder Ultrasound 05/18/18 00:00 CONCLUSION: 1. Negative renal ultrasound examination. 2. The urinary bladder is decompressed by Orellana catheter. Chest X-Ray 05/19/18 00:00 CONCLUSION: 1. Worsening severe diffuse infiltrates consistent with severe pulmonary edema or pneumonia. Clinical correlation is recommended. 2. Endotracheal tube has its tip approximately 1 cm above the fannie. This could be pulled back 2 cm for more optimal positioning. Chest X-Ray 05/19/18 06:00 CONCLUSION: Support apparatus unchanged and in satisfactory position. Basilar airspace disease and pleural effusions similar to May 17. Chest X-Ray 05/20/18 06:00 CONCLUSION: Improved airspace disease since May 19 on the left side. No new infiltrate. Chest X-Ray 05/20/18 13:02 CONCLUSION: 1. New dialysis catheter placed via the right IJ catheter appears in good position. 2. Continued bilateral parenchymal infiltrates. 3. Endotracheal tube, central line and nasogastric tube in satisfactory position. Chest X-Ray 05/21/18 06:00 CONCLUSION: Stable to slight improvement in bilateral airspace disease. Support apparatus unchanged. Objective Remarks: GENERAL: 63-year-old male currently orotracheally intubated SKIN: Warm and dry. No rash. HEAD: Atraumatic. Normocephalic. EYES: Pupils equal and round and minimally reactive bilaterally. No scleral icterus. No injection or drainage. ENT: No nasal bleeding or discharge. Mucous membranes pink and moist. NECK: Trachea midline. No JVD. Right IJ catheter is clean dry and intact. CARDIOVASCULAR: RRR S1, S2. No S4. RESPIRATORY: No accessory muscle use. Clear to auscultation. Breath sounds equal bilaterally. GASTROINTESTINAL: Abdomen soft, non-tender, nondistended. Hepatic and splenic margins not palpable. Normal active bowel sounds MUSCULOSKELETAL: Extremities without clubbing,. Trace to 1+ bilateral lower extremity edema NEUROLOGICAL: GCS 11T. Alert and responsive to commands moves all 4 extremities x4. Assessment and Plan - Assessment and Plan Plan: Neuro/Psych: Rule out anoxic encephalopathy Original CT brain on admission revealed possible 3 mm mid right araseli hemorrhage. Currently propofol infusion at 50mcgs per kilogram per minute/fentanyl drip at 250 stacey grams an hour for sedation/analgesia while intubated, to maintain ventilator synchrony. Daily sedation vacation Goal of RASS -0 Neurology/Dr. Connor following EEG completed 05/09 with no epileptic activity. Repeat 05/12 with sharp activity. Currently on fosphenytoin 300 mg daily. Discontinued levetiracetam secondary to acute kidney injury 05/16 Dilantin level noted therapeutic. Recheck level in a.m. 05/20 MRI brain revealed left maxillary, bilateral ethmoid and sphenoid sinusitis. MRA brain revealed normal examination. Continue scheduled dosing lactulose 30 cc twice daily Trend ammonia level GCS 11T-responsive to commands CV Out of hospital cardiac arrest/V. 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 Rayos. Melendez for carvedilol 3.125 mg twice daily, start aspirin 81 mg daily. Discontinued heparin drip. 05/12 Added enalapril 2.5 mg daily and atorvastatin 10 mg at night since MRI brain revealed no hemorrhage disContinue enalapril 2.5 mg daily in light of acute kidney injury Originally not candidate for cardiac catheterization due to pontine hemorrhage right mid araseli. This is been changed with MRI/A 2D echocardiogram revealed EF 30-35%. Ruptured chordae tendon possible involving mitral valve. Resp: Acute respiratory failurelikely aspiration with right lower lobe infiltrate and altered mental status PRVC ventilation Ventilator bundle Continue CPAP trial Head of bed at 30 degrees Albuterol/ipratropium aerosols every 4 hours with albuterol aerosols every 2 hours as needed dyspnea Chest x-ray revealed bilateral pulmonary opacities and small bilateral pleural effusions, slightly improved from 05/20 GI: Hyperammonia Vital 1.5 goal 60 cc output currently 60 cc an hour Pantoprazole for GI prophylaxis Docusate serum/senna 1 tablet twice daily for bowel regimen with lactulose 30 cc twice daily Follow-up on ammonia level in a.m. 05/20 : Orellana catheter placed for accurate I's and O's in a critical patient currentl Endo: Acute hyperglycemia Low TSH Sliding scale insulin with Accu-Cheks to maintain euglycemia. On insulin detemir 4 units twice daily TSH was 0.285. Normal free T4/total T3. Recheck 4-6-week HEME: Leukocytosis Normocytic anemia Monitor CBC daily. Follow trends. No indication for transfusion of blood products at this time Renal Acute kidney injury Creatinine currently within normal limits Acute I's and O's monitor urine output Avoid nephrotoxic medications. Discontinue enalapril. Discontinued vancomycin. Continue furosemide. Discontinue levetiracetam. Negative urine eosinophils. Negative renal ultrasound for hydronephrosis. Received hemodialysis 05/20. -3 L. -3 L today 05/13. ID: MRSA sputum positive 05/13 05/19 Monitor for signs and symptomatology infection Patient with aspiration. Discontinued vancomycin and piperacillin/tazobactam. Completed 7 days therapy. Currently on Linezolid and Pipracil/tazobactam restarted 05/19. Day #2. FEN: Hyperphosphatemia Hypermagnesia Replace electrolytes as clinically indicated Discontinue IV fluid MSK: PT evaluate and treat Access -Left CVL day 8 removed 05/20. Right IJ hemodialysis catheter day 2 placed . Prophylaxis - -GI pantoprazole - -DVT -SCD/heparin subcu Level 3 followup
--- NOTE | 2018-05-21 13:46 | P.PNCA ---
Subjective Interval history: Intubated. Sedated. Medications and Allergies Active Medications: Active Medications Acetaminophen (Tylenol) 650 mg PO Q6H PRN PRN Reason: PAIN 1-5 AND/OR FEVER >101F Last Admin: 05/16/18 21:30 Dose: 650 mg Acetaminophen (Tylenol) 650 mg PO UNSCH PRN PRN Reason: SEE LABEL COMMENTS Albuterol (Albuterol Neb (Prn)) 2.5 mg NEB Q2HR NEB PRN PRN Reason: DYSPNEA Last Admin: 05/17/18 19:38 Dose: 2.5 mg Albuterol (Duoneb Neb (Chao)) 1 ampul NEB Q4HR NEB [facility] Last Admin: 05/21/18 11:30 Dose: 1 ampul Amiodarone HCl (Cordarone) 400 mg PO DAILY [facility] Last Admin: 05/21/18 08:11 Dose: 400 mg Artificial Tears (Tears Naturale Opth Drops) 1 drop EACH EYE Q8H [facility] Last Admin: 05/21/18 12:48 Dose: 1 drop Aspirin (Aspirin Chew) 81 mg PO DAILY [facility] Last Admin: 05/21/18 08:11 Dose: 81 mg Atorvastatin Calcium (Lipitor) 10 mg PO HS [facility] Last Admin: 05/20/18 21:27 Dose: 10 mg Bisacodyl (Dulcolax Supp) 10 mg RECTAL DAILY PRN PRN Reason: SEVERE CONSITIPATION Carvedilol (Coreg) 3.125 mg PO BID [facility] Last Admin: 05/21/18 08:10 Dose: 3.125 mg Chlorhexidine Gluconate (Peridex 0.12% Oral Kit) 15 ml OROPHARYNG BID@0800, 2000 [facility] Last Admin: 05/21/18 08:11 Dose: 15 ml Clonidine HCl (Catapres) 0.1 mg PO UNSCH PRN PRN Reason: SEE LABEL COMMENTS Dextrose (D50w Vial) 50 ml IV.PUSH UNSCH PRN PRN Reason: PER HYPOGLYCEMIA PROTOCOL Diphenhydramine HCl (Benadryl) 25 mg PO UNSCH PRN PRN Reason: SEE LABEL COMMENTS Gelatin (Gelfoam 12 Mm/7 Mm Topical) 1 foam TOPICAL PRN PRN PRN Reason: help stop bleeding from site Gentamicin Sulfate (Gentamicin Inj) 20 mg OTHER WITH DIALYSIS PRN PRN Reason: Dwell Gentamycin Lock Last Admin: 05/21/18 12:24 Dose: 20 mg Glucagon (Glucagon Inj) 1 mg OTHER PRN PRN PRN Reason: for Hypoglycemia Protocol Heparin Sodium (Porcine) (Heparin Inj) 5,000 units SQ Q8HR [facility] Last Admin: 05/21/18 13:02 Dose: 5,000 units Heparin Sodium (Porcine) (Heparin Inj) 8,000 units OTHER WITH DIALYSIS PRN PRN Reason: for machine prime Heparin Sodium (Porcine) (Heparin Inj) 1,000 units OTHER WITH DIALYSIS PRN PRN Reason: Dwell Heparin to Fill Catheter Hydralazine HCl (Apresoline Inj) 10 mg IV.PUSH Q1H PRN PRN Reason: Sbp>140, Dbp>90 Last Admin: 05/10/18 08:00 Dose: 10 mg Albumin Human (Flexbumin 25% Inj) 100 mls @ 60 mls/hr IV.SIG Q12H [facility] Last Infusion: 05/21/18 07:55 Dose: Infused Fentanyl (Fentanyl 10 Mcg/Ml Premix Drip) 2,500 mcg in 250 mls @ 5 mls/hr IV.SIG TITRATE PRN; Protocol PRN Reason: Per Protocol Last Admin: 05/21/18 09:49 Dose: 250 mcg/hr, 25 mls/hr Propofol (Diprivan 1000 Mg/100 Ml Inj) 1,000 mg in 100 mls @ 2.547 mls/hr IV.CONT TITRATE PRN; Protocol PRN Reason: Per Protocol Last Admin: 05/21/18 11:43 Dose: 50 mcg/kg/min, 25.47 mls/hr Dexmedetomidine HCl 200 mcg/ (Sodium Chloride) 50 mls @ 4.24 mls/hr IV.CONT TITRATE PRN; Protocol PRN Reason: Per Protocol Piperacillin/Tazobactam/Dextrose (Zosyn 2.25 Gm Premix) 50 mls @ 100 mls/hr IV.SIG Q8H [facility] Last Admin: 05/21/18 12:48 Dose: 50 mls/hr Linezolid (Zyvox 600 Mg Premix) 300 mls @ 300 mls/hr IV.SIG Q12H [facility] Last Infusion: 05/21/18 09:13 Dose: Infused Sodium Chloride (Ns Inj) 1,000 mls @ 0 mls/hr OTHER .Q0M PRN PRN Reason: for prime and rinse back Sodium Chloride (Ns Inj) 1,000 mls @ 200 mls/hr OTHER .Q5H PRN PRN Reason: for dialyzer flush PRN Sodium Chloride (Ns Inj) 1,000 mls @ 0 mls/hr IV.CONT .Q0M PRN PRN Reason: hypotension / volume replace Albumin Human (Flexbumin 25% Inj) 100 mls @ 60 mls/hr IV.SIG WITH DIALYSIS PRN PRN Reason: hypotension / volume replace Insulin Aspart (Novolog Insulin Correctional Sugar Inj) 0 unit SQ Q4HR [facility]; Protocol Last Admin: 05/21/18 11:43 Dose: Not Given Insulin Detemir (Levemir Inj) 8 unit SQ BID [facility] Last Admin: 05/18/18 22:31 Dose: 8 unit Labetalol HCl (Trandate Inj) 10 mg IV.PUSH Q1H PRN PRN Reason: Sbp>140, Dbp>90, Hr>65 Last Admin: 05/10/18 14:30 Dose: 10 mg Lactulose (Lactulose Liq) 30 ml PO DAILY PRN PRN Reason: SEVERE CONSITIPATION Lactulose (Lactulose Liq) 30 ml PO BID [facility] Last Admin: 05/21/18 08:10 Dose: 30 ml Lorazepam (Ativan Inj) 1 mg IV.PUSH Q1H PRN PRN Reason: SEE LABEL COMMENTS Mannitol (Mannitol Inj) 12.5 gm IV.PUSH UNSCH PRN PRN Reason: hypotension / volume replace Miscellaneous Medication () 1 each OROPHARYNG 0000,0400,1200,1600 [facility] Last Admin: 05/21/18 11:43 Dose: 1 each Morphine Sulfate (Morphine Inj) 2 mg IV.PUSH Q2H PRN PRN Reason: PAIN SCALE 6 TO 10 Last Admin: 05/16/18 21:28 Dose: 2 mg Mupirocin (Bactroban 2% Nasal Oint) 1 applicatio EACH NARE BID [facility] Last Admin: 05/21/18 08:11 Dose: 1 applicatio Nitroglycerin (Nitrostat Sl) 0.4 mg SL Q5M PRN PRN Reason: CHEST PAIN Ondansetron HCl (Zofran Inj) 4 mg IV.PUSH Q6H PRN PRN Reason: NAUSEA OR VOMITING Ondansetron HCl (Zofran Inj) 4 mg IV.PUSH UNSCH PRN PRN Reason: NAUSEA OR VOMITING Pantoprazole Sodium (Protonix Inj) 40 mg IV.PUSH Q24H [facility] Last Admin: 05/21/18 12:49 Dose: 40 mg Phenytoin Sodium (Dilantin) 300 mg PO HS [facility] Last Admin: 05/20/18 21:27 Dose: 300 mg Polyethylene Glycol (Miralax) 17 gm PO BID [facility] Last Admin: 05/21/18 08:11 Dose: 17 gm Senna/Docusate Sodium (Lizbeth-Colace) 1 tab PO BID [facility] Last Admin: 05/21/18 08:11 Dose: 1 tab Sennosides (Senokot) 17.2 mg PO Q12H PRN PRN Reason: Moderate Constipation Sodium Chloride (Ns Flush) 2 ml IV.FLUSH BID [facility] Last Admin: 05/21/18 08:12 Dose: 2 ml Sodium Chloride (Ns Flush) 2 ml IV.FLUSH PRN PRN PRN Reason: FLUSH AFTER USING IV ACCESS Sodium Chloride (Ns Flush) 0 ml IV.FLUSH DAILY [facility] Last Admin: 05/21/18 08:12 Dose: Not Given Sodium Chloride (Ns Flush) 5 ml IV.FLUSH PRN PRN PRN Reason: flush each lumen during HD Sodium Chloride (Ns Flush) 0 ml IV.FLUSH PRN PRN PRN Reason: FLUSH AFTER USING IV ACCESS Allergies Allergy/AdvReac Type Severity Reaction Status Date / Time No Known Allergies Allergy Uncoded 02/17/15 12:05 Home Medications Medication Instructions Recorded Confirmed Type No Known Home Medications 05/08/18 05/08/18 History Physical Exam Vital signs: Vital Signs 05/20/18 14:07 05/20/18 14:59 05/20/18 16:00 Temperature Pulse Rate 81 84 Respiratory Rate 18 18 18 Blood Pressure 116/66 Pulse Oximetry 99 99 05/20/18 16:20 05/20/18 19:38 05/20/18 19:45 Temperature Pulse Rate 81 Respiratory Rate 18 18 18 Blood Pressure Pulse Oximetry 97 97 05/20/18 20:00 05/20/18 21:00 05/20/18 22:00 Temperature 98.4 F Pulse Rate 82 79 81 Respiratory Rate Blood Pressure 102/55 L 116/59 L 99/55 L Pulse Oximetry 98 98 98 05/20/18 23:00 05/21/18 00:00 05/21/18 00:01 Temperature Pulse Rate 82 87 Respiratory Rate 23 18 Blood Pressure 131/68 122/67 Pulse Oximetry 99 98 94 L 05/21/18 01:00 05/21/18 02:00 05/21/18 03:00 Temperature Pulse Rate 84 83 86 Respiratory Rate Blood Pressure 103/56 L 107/57 L 111/58 L Pulse Oximetry 93 L 95 95 05/21/18 03:42 05/21/18 03:43 05/21/18 04:00 Temperature Pulse Rate 83 85 Respiratory Rate 16 18 Blood Pressure 97/56 L Pulse Oximetry 95 95 05/21/18 05:00 05/21/18 06:00 05/21/18 07:00 Temperature Pulse Rate 80 85 82 Respiratory Rate 16 Blood Pressure 119/60 105/56 L Pulse Oximetry 96 99 05/21/18 08:00 05/21/18 09:00 05/21/18 11:00 Temperature 97.8 F Pulse Rate 82 83 92 H Respiratory Rate 18 18 Blood Pressure 106/56 L Pulse Oximetry 99 05/21/18 12:00 05/21/18 12:30 Temperature 99.1 F Pulse Rate 90 Respiratory Rate 18 11 L Blood Pressure 124/63 Pulse Oximetry 100 100 Intake & Output 05/20/18 05/21/18 05/21/18 18:59 06:59 18:59 Intake Total 1156.1 / 1156.1 1100 / 1100 800 / 800 Output Total 4550 / 4550 1200 / 1200 3000 / 3000 Balance -3393.9 / -3393.9 -100 / -100 -2200 / -2200 Weight 80 kg Intake: IV 1156.1 / 1156.1 900 / 900 800 / 800 Bumex Inj 25 mg In 100 ml @ 0.5 6.1 / 6.1 MG/HR 2 mls/hr IV.CONT .Q24H [facility] Rx#:[id number] Diprivan 1000 mg/100 ml Inj 1, 300 / 300 300 / 300 100 / 100 000 mg In 100 ml @ 5 MCG/KG/MIN 2.547 mls/hr IV.CONT TITRATE PRN Rx#:[id number] Flexbumin 25% Inj 100 ML @ 60 200 / 200 100 / 100 mls/hr IV.SIG Q12H [facility] Rx#: [id number] Zyvox 600 mg Premix 300 ML @ 300 / 300 300 / 300 300 / 300 300 mls/hr IV.SIG Q12H [facility] Rx#: [id number] Zosyn 2.25 GM Premix 50 ML @ 100 / 100 50 / 50 50 / 50 100 mls/hr IV.SIG Q8H [facility] Rx#: [id number] fentaNYL 10 mcg/mL Premix Drip 250 / 250 250 / 250 250 / 250 2,500 mcg In 250 ml @ 50 MCG/HR 5 mls/hr IV.SIG TITRATE PRN Rx #:[id number] Water Bolus Amount 200 / 200 Output: Hemodialysis Amount 3000 / 3000 3000 / 3000 Urine Amount (Catheter) 950 / 950 900 / 900 Indwelling Urethral Catheter 950 / 950 900 / 900 Gastric Drainage 600 / 600 300 / 300 Orogastric Tube 600 / 600 300 / 300 Other: Date of Last Bowel Movement 05/20/18 05/21/18 05/21/18 # Bowel Movements 1 1 - Constitutional Comments: Intubated. Sedated. - Routine Neck Exam Absent: JVD Comments: Lungs clear anteriorly. - Routine Cardiovascular Exam Present: RRR, S1, S2. Absent: murmur, gallop - Routine Abdominal Exam Present: soft, normoactive bowel sounds. Absent: organomegaly - Routine Extremities Exam Absent: cyanosis, clubbing, edema - Urinary Catheter Management Indwelling Temp Sensing Catheter Cath placed during this visit: yes, but has since been removed by the nurse Reason for continuing: Not indwelling catheter Insertion date: 05/08/18 Insertion time: 22:40 Removal date: 05/19/18 Removal time: 12:00 Straight Cath placed during this visit: yes Reason for continuing: Not indwelling catheter Insertion date: 05/20/18 Insertion time: 00:00 Condom Cath placed during this visit: no Indwelling Urethral Catheter Cath placed during this visit: yes Reason for continuing: Hourly intake/output Insertion date: 05/20/18 Insertion time: 08:30 Results 05/21/18 03:56 05/21/18 01:33 Cardiac Enzymes 05/20/18 05/21/18 Range/Units 04:38 01:33 AST 19 13 L (15-37) U/L Troponin I 2.23 H* (0.02-0.05) ng/mL CBC 05/20/18 05/21/18 Range/Units 04:38 03:56 WBC 18.5 H 14.0 H (4.0-11.0) th/mm3 RBC 3.78 L 3.86 L (4.50-5.90) mil/mm3 Hgb 10.6 L 10.9 L (13.0-17.0) gm/dL Hct 32.8 L 33.2 L (39.0-51.0) % Plt Count 313 D 344 (150-450) th/mm3 Neut # (Auto) 15.7 H 11.6 H (1.8-7.7) th/mm3 Lymph # (Auto) 1.0 0.9 L (1.0-4.8) th/mm3 [place] # (Auto) 0.8 0.9 (0.0-0.9) th/mm3 Eos # (Auto) 0.7 H 0.6 H (0.0-0.4) th/mm3 Baso # (Auto) 0.2 0.1 (0.0-0.2) th/mm3 Comprehensive Metabolic Panel 05/20/18 05/21/18 Range/Units 04:38 01:33 Sodium 144 143 (136-145) meq/L Potassium 3.7 4.0 (3.5-5.1) meq/L Chloride 109 H 107 (98-107) meq/L Carbon Dioxide 26.6 24.7 (21.0-32.0) meq/L BUN 75 H 60 H (7-18) mg/dL Creatinine 4.61 H 4.17 H (0.60-1.30) mg/dL Calcium 7.8 L 7.9 L (8.5-10.1) mg/dL AST 19 13 L (15-37) U/L ALT 36 25 (12-78) U/L Alkaline Phosphatase 108 96 (45-117) U/L Total Protein 5.7 L 5.1 L D (6.4-8.2) g/dL Albumin 1.9 L 2.1 L (3.4-5.0) g/dL Intake and Output 05/20/18 05/21/18 05/21/18 22:59 06:59 14:59 Intake Total 406.1 / 406.1 950 / 950 800 / 800 Output Total 4550 / 4550 1200 / 1200 3000 / 3000 Balance -4143.9 / -4143.9 -250 / -250 -2200 / -2200 Intake: IV 406.1 / 406.1 750 / 750 800 / 800 Bumex Inj 25 mg In 100 ml @ 0.5 6.1 / 6.1 MG/HR 2 mls/hr IV.CONT .Q24H [facility] Rx#:[id number] Diprivan 1000 mg/100 ml Inj 1, 200 / 200 200 / 200 100 / 100 000 mg In 100 ml @ 5 MCG/KG/MIN 2.547 mls/hr IV.CONT TITRATE PRN Rx#:[id number] Flexbumin 25% Inj 100 ML @ 60 100 / 100 100 / 100 mls/hr IV.SIG Q12H [facility] Rx#: [id number] Zyvox 600 mg Premix 300 ML @ 300 / 300 300 / 300 300 mls/hr IV.SIG Q12H [facility] Rx#: [id number] Zosyn 2.25 GM Premix 50 ML @ 100 / 100 50 / 50 100 mls/hr IV.SIG Q8H [facility] Rx#: [id number] fentaNYL 10 mcg/mL Premix Drip 250 / 250 250 / 250 2,500 mcg In 250 ml @ 50 MCG/HR 5 mls/hr IV.SIG TITRATE PRN Rx #:[id number] Water Bolus Amount 200 / 200 Output: Hemodialysis Amount 3000 / 3000 3000 / 3000 Urine Amount (Catheter) 950 / 950 900 / 900 Indwelling Urethral Catheter 950 / 950 900 / 900 Gastric Drainage 600 / 600 300 / 300 Orogastric Tube 600 / 600 300 / 300 Other: Date of Last Bowel Movement 05/21/18 05/21/18 05/21/18 # Bowel Movements 1 1 Weight 80 kg - Imaging and Cardiology Imaging: Impressions Chest X-Ray 05/19/18 00:00 CONCLUSION: 1. Worsening severe diffuse infiltrates consistent with severe pulmonary edema or pneumonia. Clinical correlation is recommended. 2. Endotracheal tube has its tip approximately 1 cm above the fannie. This could be pulled back 2 cm for more optimal positioning. Chest X-Ray 05/20/18 06:00 CONCLUSION: Improved airspace disease since May 19 on the left side. No new infiltrate. Chest X-Ray 05/20/18 13:02 CONCLUSION: 1. New dialysis catheter placed via the right IJ catheter appears in good position. 2. Continued bilateral parenchymal infiltrates. 3. Endotracheal tube, central line and nasogastric tube in satisfactory position. Chest X-Ray 05/21/18 06:00 CONCLUSION: Stable to slight improvement in bilateral airspace disease. Support apparatus unchanged. Assessment and Plan - Assessment (1) ST elevation (STEMI) myocardial infarction involving left anterior descending coronary artery Code(s): I21.02 - ST elevation (STEMI) myocardial infarction involving left anterior descending coronary artery Status: Acute Plan: Cardiac status overall fairly stable. Some difficulties with CHF, now better with dialysis. Echo suggests patient sustained large LAD coronary territory infarction, EF ~30%. Neuro status much improved. Continue current management. If has recovery of his renal function, consider cath. (2) Cardiac arrest Code(s): I46.9 - Cardiac arrest, cause unspecified Status: Acute Plan: No further ventricular tachyarrhythmias. Continue oral Amiodarone. Consider Life Vest before discharge. (3) Ischemic cardiomyopathy Code(s): I25.5 - Ischemic cardiomyopathy Status: Acute Plan: EF ~30% by echo. Chest x-ray slowly improving. Continue current regimen. - Plan Code Status: alternative code
--- NOTE | 2018-05-21 14:19 | P.PNPAL ---
Reason for Visit Reason for visit: a. To assist with evaluation and management of symptoms including: Pain. b. To assist medical decision maker(s) with: better understanding of current medical conditions; weighing benefits/burdens of medical treatment options; making medical treatment decisions. Subjective Subjective/Interval History: Patient seen today to follow-up on comfort, goals of medical treatment with pt/ decision-maker. Medically extubated Saturday, Reported alert, and appropriate, following commands etc after extubation. Tolerated extubation well initially, +fluid overload, pulmonary edema, required re-intubation later. BUN and creatinine continue to trend up, + fluid overload, started Hemodialysis yesterday (-3L) , undergoing HD again today. Critical care hopeful will be able to medically extubate once fluid status corrected. WBC down to 14. BUN 60/creatinine 4.17, CXR stable/slight improvement in aeration. BC no growth yet. Sputum from 05/19 + MRSA. Urine cult negative, repeat 05/20 pending. Patient seen in room,as HD in progress. Sedated on mech vent, on diprivan, fentanyl. Appears comfortable does not stir to exam. No family present. Discussed with critical care, RN. Call to after exam, VM full, unable to leave message. Advance Directives Living Will: Never completed Health Care Surrogate: Never completed Durable Power of Home Health Cna: Never completed Objective Vital Signs: Vital Signs 05/20/18 14:07 05/20/18 14:59 05/20/18 16:00 Temperature Pulse Rate 81 84 Respiratory Rate 18 18 18 Blood Pressure 116/66 Pulse Oximetry 99 99 05/20/18 16:20 05/20/18 19:38 05/20/18 19:45 Temperature Pulse Rate 81 Respiratory Rate 18 18 18 Blood Pressure Pulse Oximetry 97 97 05/20/18 20:00 05/20/18 21:00 05/20/18 22:00 Temperature 98.4 F Pulse Rate 82 79 81 Respiratory Rate Blood Pressure 102/55 L 116/59 L 99/55 L Pulse Oximetry 98 98 98 05/20/18 23:00 05/21/18 00:00 05/21/18 00:01 Temperature Pulse Rate 82 87 Respiratory Rate 23 18 Blood Pressure 131/68 122/67 Pulse Oximetry 99 98 94 L 05/21/18 01:00 05/21/18 02:00 05/21/18 03:00 Temperature Pulse Rate 84 83 86 Respiratory Rate Blood Pressure 103/56 L 107/57 L 111/58 L Pulse Oximetry 93 L 95 95 05/21/18 03:42 05/21/18 03:43 05/21/18 04:00 Temperature Pulse Rate 83 85 Respiratory Rate 16 18 Blood Pressure 97/56 L Pulse Oximetry 95 95 05/21/18 05:00 05/21/18 06:00 05/21/18 07:00 Temperature Pulse Rate 80 85 82 Respiratory Rate 16 Blood Pressure 119/60 105/56 L Pulse Oximetry 96 99 05/21/18 08:00 05/21/18 09:00 05/21/18 11:00 Temperature 97.8 F Pulse Rate 82 83 92 H Respiratory Rate 18 18 Blood Pressure 106/56 L Pulse Oximetry 99 05/21/18 12:00 05/21/18 12:30 Temperature 99.1 F Pulse Rate 90 Respiratory Rate 18 11 L Blood Pressure 124/63 Pulse Oximetry 100 100 Intake & Output 05/20/18 05/21/18 05/21/18 18:59 06:59 18:59 Intake Total 1156.1 / 1156.1 1100 / 1100 800 / 800 Output Total 4550 / 4550 1200 / 1200 3000 / 3000 Balance -3393.9 / -3393.9 -100 / -100 -2200 / -2200 Weight 80 kg Intake: IV 1156.1 / 1156.1 900 / 900 800 / 800 Bumex Inj 25 mg In 100 ml @ 0.5 6.1 / 6.1 MG/HR 2 mls/hr IV.CONT .Q24H J[facility] Rx#:[id number] Diprivan 1000 mg/100 ml Inj 1, 300 / 300 300 / 300 100 / 100 000 mg In 100 ml @ 5 MCG/KG/MIN 2.547 mls/hr IV.CONT TITRATE PRN Rx#:[id number] Flexbumin 25% Inj 100 ML @ 60 200 / 200 100 / 100 mls/hr IV.SIG Q12H [facility]IM Rx#: [id number] Zyvox 600 mg Premix 300 ML @ 300 / 300 300 / 300 300 / 300 300 mls/hr IV.SIG Q12H [facility] Rx#: [id number] Zosyn 2.25 GM Premix 50 ML @ 100 / 100 50 / 50 50 / 50 100 mls/hr IV.SIG Q8H [facility] Rx#: [id number] fentaNYL 10 mcg/mL Premix Drip 250 / 250 250 / 250 250 / 250 2,500 mcg In 250 ml @ 50 MCG/HR 5 mls/hr IV.SIG TITRATE PRN Rx #:[id number] Water Bolus Amount 200 / 200 Output: Hemodialysis Amount 3000 / 3000 3000 / 3000 Urine Amount (Catheter) 950 / 950 900 / 900 Indwelling Urethral Catheter 950 / 950 900 / 900 Gastric Drainage 600 / 600 300 / 300 Orogastric Tube 600 / 600 300 / 300 Other: Date of Last Bowel Movement 05/20/18 05/21/18 05/21/18 # Bowel Movements 1 1 Physical Exam: CONSTITUTIONAL/GENERAL: This is an adequately nourished patient endotracheally intubated on mechanical ventilation. alert, calm TUBES/LINES/DRAINS: ETT, OG, left IJ central line, Orellana catheter, bilateral SCDs, bilateral soft wrist restraints. SKIN: No jaundice, rashes, or lesions. No wounds seen anteriorly. Skin temperature appropriate. Not diaphoretic. EYES: Pupils equal and round and reactive. Extraocular motions intact. No scleral icterus. No injection or drainage. ENT: Nose without bleeding or purulent drainage. Moist oral mucosa. ETT, OG in place limiting oropharynx exam CARDIOVASCULAR: Regular rate and rhythm. Peripheral pulses symmetric. RESPIRATORY/CHEST: Symmetric, unlabored respirations via ETT to mech vent, Clear to auscultation,d iminsihed. Breath sounds equal bilaterally. GASTROINTESTINAL: Abdomen soft, non-tender, nondistended. OGT to sx. GENITOURINARY: Without palpable bladder distension. Orellana catheter in place clear yellow urine. MUSCULOSKELETAL: Extremities without clubbing, cyanosis, or edema. No mottling or clubbing. NEUROLOGICAL: Alert, tracks examiner. nods to some questions. Follows commands with 4 extremities PSYCHIATRIC: calm no apparent distress Diagnostic Tests Laboratory: Laboratory Results - last 72 hr 05/18/18 05/18/18 05/18/18 16:03 16:15 20:07 WBC RBC Hgb Hct MCV MCH MCHC RDW Plt Count MPV Neut % (Auto) Lymph % (Auto) [place] % (Auto) Eos % (Auto) Baso % (Auto) Neut # (Auto) Lymph # (Auto) [place] # (Auto) Eos # (Auto) Baso # (Auto) WBC Differential Differential Comment Puncture Site Patient Temperature O2 Saturation ABG pH ABG pCO2 ABG pO2 ABG HCO3 ABG O2 Content ABG Base Excess ABG Methemoglobin David Test Hemoglobin Carboxyhemoglobin O2 Delivery Device Vent Setting Inspired O2 Critical Value Sodium 144 Potassium 4.1 Chloride 109 H Carbon Dioxide 27.2 Anion Gap 8 BUN 56 H Creatinine 3.50 H Estimated GFR 18 L POC Glucose 115 H 131 H Random Glucose 107 H D Lactic Acid Calcium 8.2 L Phosphorus Magnesium Total Bilirubin AST ALT Alkaline Phosphatase Ammonia Total Creatine Kinase Troponin I Total Protein Albumin Urine Color Urine Clarity Urine pH Ur Specific Gary Urine Protein Urine Glucose (UA) Urine Ketones Urine Occult Blood Urine Nitrate Urine Bilirubin Urine Urobilinogen Ur Leukocyte Esterase Urine RBC Urine WBC Urine WBC Clumps Amorphous Sediment Urine Bacteria Urine Mucus Micro UA Comment Ur Microscopic Review Urine Culture Comments Random Vancomycin Phenytoin Hepatitis A IgM Ab Hep Bs Antigen Hep B Core IgM Ab Hep C IgG Ab 05/19/18 05/19/18 05/19/18 00:26 04:45 04:50 WBC RBC Hgb Hct MCV MCH MCHC RDW Plt Count MPV Neut % (Auto) Lymph % (Auto) [place] % (Auto) Eos % (Auto) Baso % (Auto) Neut # (Auto) Lymph # (Auto) [place] # (Auto) Eos # (Auto) Baso # (Auto) WBC Differential Differential Comment Puncture Site Patient Temperature O2 Saturation ABG pH ABG pCO2 ABG pO2 ABG HCO3 ABG O2 Content ABG Base Excess ABG Methemoglobin David Test Hemoglobin Carboxyhemoglobin O2 Delivery Device Vent Setting Inspired O2 Critical Value Sodium 144 Potassium 4.4 Chloride 109 H Carbon Dioxide 26.3 Anion Gap 9 BUN 67 H Creatinine 4.29 H Estimated GFR 14 L POC Glucose 187 H 160 H Random Glucose 165 H Lactic Acid Calcium 8.0 L Phosphorus 6.0 H D Magnesium 2.8 H Total Bilirubin 0.3 AST 26 ALT 42 Alkaline Phosphatase 111 Ammonia Total Creatine Kinase Troponin I Total Protein 5.6 L Albumin 1.9 L Urine Color Urine Clarity Urine pH Ur Specific Gary Urine Protein Urine Glucose (UA) Urine Ketones Urine Occult Blood Urine Nitrate Urine Bilirubin Urine Urobilinogen Ur Leukocyte Esterase Urine RBC Urine WBC Urine WBC Clumps Amorphous Sediment Urine Bacteria Urine Mucus Micro UA Comment Ur Microscopic Review Urine Culture Comments Random Vancomycin 41.7 Phenytoin 10.5 Hepatitis A IgM Ab Hep Bs Antigen Hep B Core IgM Ab Hep C IgG Ab 05/19/18 05/19/18 05/19/18 04:50 08:10 08:31 WBC 14.3 H RBC 3.43 L Hgb 9.7 L Hct 29.8 L MCV 86.6 MCH 28.2 MCHC 32.5 RDW 15.1 Plt Count 213 MPV 9.8 Neut % (Auto) 86.0 H Lymph % (Auto) 5.6 L [place] % (Auto) 4.9 Eos % (Auto) 3.1 Baso % (Auto) 0.4 Neut # (Auto) 12.4 H Lymph # (Auto) 0.8 L [place] # (Auto) 0.7 Eos # (Auto) 0.4 Baso # (Auto) 0.1 WBC Differential . Differential Comment Auto diff final Puncture Site Patient Temperature O2 Saturation ABG pH ABG pCO2 ABG pO2 ABG HCO3 ABG O2 Content ABG Base Excess ABG Methemoglobin David Test Hemoglobin Carboxyhemoglobin O2 Delivery Device Vent Setting Inspired O2 Critical Value Sodium Potassium Chloride Carbon Dioxide Anion Gap BUN Creatinine Estimated GFR POC Glucose Random Glucose Lactic Acid 1.1 Calcium Phosphorus Magnesium Total Bilirubin AST ALT Alkaline Phosphatase Ammonia Total Creatine Kinase 68 Troponin I Total Protein Albumin Urine Color Urine Clarity Urine pH Ur Specific Gary Urine Protein Urine Glucose (UA) Urine Ketones Urine Occult Blood Urine Nitrate Urine Bilirubin Urine Urobilinogen Ur Leukocyte Esterase Urine RBC Urine WBC Urine WBC Clumps Amorphous Sediment Urine Bacteria Urine Mucus Micro UA Comment Ur Microscopic Review Urine Culture Comments Random Vancomycin Phenytoin Hepatitis A IgM Ab Hep Bs Antigen Hep B Core IgM Ab Hep C IgG Ab 05/19/18 05/19/18 05/19/18 09:26 11:00 11:55 WBC RBC Hgb Hct MCV MCH MCHC RDW Plt Count MPV Neut % (Auto) Lymph % (Auto) [place] % (Auto) Eos % (Auto) Baso % (Auto) Neut # (Auto) Lymph # (Auto) [place] # (Auto) Eos # (Auto) Baso # (Auto) WBC Differential Differential Comment Puncture Site Left radial Patient Temperature 98.6 O2 Saturation 94 ABG pH 7.47 H ABG pCO2 34 L ABG pO2 79 ABG HCO3 24 ABG O2 Content 13.0 ABG Base Excess 0.5 ABG Methemoglobin 1.1 David Test Present Hemoglobin 9.7 L Carboxyhemoglobin 1.1 O2 Delivery Device Ventilator Vent Setting Ps 10/[id number] Inspired O2 40 Critical Value No Sodium Potassium Chloride Carbon Dioxide Anion Gap BUN Creatinine Estimated GFR POC Glucose 174 H Random Glucose Lactic Acid Calcium Phosphorus Magnesium Total Bilirubin AST ALT Alkaline Phosphatase Ammonia Total Creatine Kinase Troponin I Total Protein Albumin Urine Color Yellow Urine Clarity Hazy H Urine pH 5.0 Ur Specific Gary 1.011 Urine Protein 30 H Urine Glucose (UA) Negative Urine Ketones Negative Urine Occult Blood Small H Urine Nitrate Negative Urine Bilirubin Negative Urine Urobilinogen Less than 2 Ur Leukocyte Esterase Negative Urine RBC 9 H Urine WBC 2 Urine WBC Clumps Amorphous Sediment Rare H Urine Bacteria Rare H Urine Mucus Few H Micro UA Comment Cath-culture ind Ur Microscopic Review Not Reportable Urine Culture Comments Cath-cult indicated Random Vancomycin Phenytoin Hepatitis A IgM Ab Hep Bs Antigen Hep B Core IgM Ab Hep C IgG Ab 05/19/18 05/19/18 05/19/18 13:24 16:02 18:31 WBC RBC Hgb Hct MCV MCH MCHC RDW Plt Count MPV Neut % (Auto) Lymph % (Auto) [place] % (Auto) Eos % (Auto) Baso % (Auto) Neut # (Auto) Lymph # (Auto) [place] # (Auto) Eos # (Auto) Baso # (Auto) WBC Differential Differential Comment Puncture Site Left radial Patient Temperature 98.6 O2 Saturation 97 ABG pH 7.39 ABG pCO2 39 ABG pO2 159 H ABG HCO3 23 ABG O2 Content 14.7 ABG Base Excess -1.3 ABG Methemoglobin 1.5 David Test Present Hemoglobin 10.6 L Carboxyhemoglobin 0.8 O2 Delivery Device Ventilator Vent Setting Prvc/ac Inspired O2 100 Critical Value No Sodium Potassium Chloride Carbon Dioxide Anion Gap BUN Creatinine Estimated GFR POC Glucose 137 H 140 H Random Glucose Lactic Acid Calcium Phosphorus Magnesium Total Bilirubin AST ALT Alkaline Phosphatase Ammonia Total Creatine Kinase Troponin I Total Protein Albumin Urine Color Urine Clarity Urine pH Ur Specific Gary Urine Protein Urine Glucose (UA) Urine Ketones Urine Occult Blood Urine Nitrate Urine Bilirubin Urine Urobilinogen Ur Leukocyte Esterase Urine RBC Urine WBC Urine WBC Clumps Amorphous Sediment Urine Bacteria Urine Mucus Micro UA Comment Ur Microscopic Review Urine Culture Comments Random Vancomycin Phenytoin Hepatitis A IgM Ab Hep Bs Antigen Hep B Core IgM Ab Hep C IgG Ab 05/19/18 05/19/18 05/20/18 21:30 23:36 03:49 WBC RBC Hgb Hct MCV MCH MCHC RDW Plt Count MPV Neut % (Auto) Lymph % (Auto) [place] % (Auto) Eos % (Auto) Baso % (Auto) Neut # (Auto) Lymph # (Auto) [place] # (Auto) Eos # (Auto) Baso # (Auto) WBC Differential Differential Comment Puncture Site Patient Temperature O2 Saturation ABG pH ABG pCO2 ABG pO2 ABG HCO3 ABG O2 Content ABG Base Excess ABG Methemoglobin David Test Hemoglobin Carboxyhemoglobin O2 Delivery Device Vent Setting Inspired O2 Critical Value Sodium Potassium Chloride Carbon Dioxide Anion Gap BUN Creatinine Estimated GFR POC Glucose 97 134 H 91 Random Glucose Lactic Acid Calcium Phosphorus Magnesium Total Bilirubin AST ALT Alkaline Phosphatase Ammonia Total Creatine Kinase Troponin I Total Protein Albumin Urine Color Urine Clarity Urine pH Ur Specific Gary Urine Protein Urine Glucose (UA) Urine Ketones Urine Occult Blood Urine Nitrate Urine Bilirubin Urine Urobilinogen Ur Leukocyte Esterase Urine RBC Urine WBC Urine WBC Clumps Amorphous Sediment Urine Bacteria Urine Mucus Micro UA Comment Ur Microscopic Review Urine Culture Comments Random Vancomycin Phenytoin Hepatitis A IgM Ab Hep Bs Antigen Hep B Core IgM Ab Hep C IgG Ab 05/20/18 05/20/18 05/20/18 04:38 04:38 04:38 WBC 18.5 H RBC 3.78 L Hgb 10.6 L Hct 32.8 L MCV 86.6 MCH 28.0 MCHC 32.4 RDW 15.2 Plt Count 313 D MPV 9.9 Neut % (Auto) 85.3 H Lymph % (Auto) 5.5 L [place] % (Auto) 4.3 Eos % (Auto) 3.7 Baso % (Auto) 1.2 Neut # (Auto) 15.7 H Lymph # (Auto) 1.0 [place] # (Auto) 0.8 Eos # (Auto) 0.7 H Baso # (Auto) 0.2 WBC Differential . Differential Comment Auto diff final Puncture Site Patient Temperature O2 Saturation ABG pH ABG pCO2 ABG pO2 ABG HCO3 ABG O2 Content ABG Base Excess ABG Methemoglobin David Test Hemoglobin Carboxyhemoglobin O2 Delivery Device Vent Setting Inspired O2 Critical Value Sodium 144 Potassium 3.7 Chloride 109 H Carbon Dioxide 26.6 Anion Gap 8 BUN 75 H Creatinine 4.61 H Estimated GFR 13 L POC Glucose Random Glucose 96 Lactic Acid Calcium 7.8 L Phosphorus 5.5 H Magnesium 2.7 H Total Bilirubin 0.3 AST 19 ALT 36 Alkaline Phosphatase 108 Ammonia 27 Total Creatine Kinase Troponin I 2.23 H* Total Protein 5.7 L Albumin 1.9 L Urine Color Urine Clarity Urine pH Ur Specific Gary Urine Protein Urine Glucose (UA) Urine Ketones Urine Occult Blood Urine Nitrate Urine Bilirubin Urine Urobilinogen Ur Leukocyte Esterase Urine RBC Urine WBC Urine WBC Clumps Amorphous Sediment Urine Bacteria Urine Mucus Micro UA Comment Ur Microscopic Review Urine Culture Comments Random Vancomycin 31.9 Phenytoin 9.9 L Hepatitis A IgM Ab Hep Bs Antigen Hep B Core IgM Ab Hep C IgG Ab 05/20/18 05/20/18 05/20/18 08:01 11:01 11:45 WBC RBC Hgb Hct MCV MCH MCHC RDW Plt Count MPV Neut % (Auto) Lymph % (Auto) [place] % (Auto) Eos % (Auto) Baso % (Auto) Neut # (Auto) Lymph # (Auto) [place] # (Auto) Eos # (Auto) Baso # (Auto) WBC Differential Differential Comment Puncture Site Patient Temperature O2 Saturation ABG pH ABG pCO2 ABG pO2 ABG HCO3 ABG O2 Content ABG Base Excess ABG Methemoglobin David Test Hemoglobin Carboxyhemoglobin O2 Delivery Device Vent Setting Inspired O2 Critical Value Sodium Potassium Chloride Carbon Dioxide Anion Gap BUN Creatinine Estimated GFR POC Glucose 115 H 153 H Random Glucose Lactic Acid Calcium Phosphorus Magnesium Total Bilirubin AST ALT Alkaline Phosphatase Ammonia Total Creatine Kinase Troponin I Total Protein Albumin Urine Color Straw Urine Clarity Hazy H Urine pH 6.0 Ur Specific Gary 1.006 Urine Protein Negative Urine Glucose (UA) Negative Urine Ketones Negative Urine Occult Blood Small H Urine Nitrate Negative Urine Bilirubin Negative Urine Urobilinogen Less than 2 Ur Leukocyte Esterase Moderate H Urine RBC 2 Urine WBC 17 H Urine WBC Clumps Rare H Amorphous Sediment Occasional H Urine Bacteria Rare H Urine Mucus Few H Micro UA Comment Cath-culture ind Ur Microscopic Review Not Reportable Urine Culture Comments Cath-cult indicated Random Vancomycin Phenytoin Hepatitis A IgM Ab Hep Bs Antigen Hep B Core IgM Ab Hep C IgG Ab 05/20/18 05/20/18 05/20/18 16:07 21:07 23:40 WBC RBC Hgb Hct MCV MCH MCHC RDW Plt Count MPV Neut % (Auto) Lymph % (Auto) [place] % (Auto) Eos % (Auto) Baso % (Auto) Neut # (Auto) Lymph # (Auto) [place] # (Auto) Eos # (Auto) Baso # (Auto) WBC Differential Differential Comment Puncture Site Patient Temperature O2 Saturation ABG pH ABG pCO2 ABG pO2 ABG HCO3 ABG O2 Content ABG Base Excess ABG Methemoglobin David Test Hemoglobin Carboxyhemoglobin O2 Delivery Device Vent Setting Inspired O2 Critical Value Sodium Potassium Chloride Carbon Dioxide Anion Gap BUN Creatinine Estimated GFR POC Glucose 97 107 121 H Random Glucose Lactic Acid Calcium Phosphorus Magnesium Total Bilirubin AST ALT Alkaline Phosphatase Ammonia Total Creatine Kinase Troponin I Total Protein Albumin Urine Color Urine Clarity Urine pH Ur Specific Gary Urine Protein Urine Glucose (UA) Urine Ketones Urine Occult Blood Urine Nitrate Urine Bilirubin Urine Urobilinogen Ur Leukocyte Esterase Urine RBC Urine WBC Urine WBC Clumps Amorphous Sediment Urine Bacteria Urine Mucus Micro UA Comment Ur Microscopic Review Urine Culture Comments Random Vancomycin Phenytoin Hepatitis A IgM Ab Hep Bs Antigen Hep B Core IgM Ab Hep C IgG Ab 05/21/18 05/21/18 05/21/18 01:33 01:33 03:56 WBC 14.0 H RBC 3.86 L Hgb 10.9 L Hct 33.2 L MCV 86.1 MCH 28.3 MCHC 32.9 RDW 15.1 Plt Count 344 MPV 10.2 Neut % (Auto) 82.6 H Lymph % (Auto) 6.1 L [place] % (Auto) 6.1 Eos % (Auto) 4.5 H Baso % (Auto) 0.7 Neut # (Auto) 11.6 H Lymph # (Auto) 0.9 L [place] # (Auto) 0.9 Eos # (Auto) 0.6 H Baso # (Auto) 0.1 WBC Differential . Differential Comment Auto diff final Puncture Site Patient Temperature O2 Saturation ABG pH ABG pCO2 ABG pO2 ABG HCO3 ABG O2 Content ABG Base Excess ABG Methemoglobin David Test Hemoglobin Carboxyhemoglobin O2 Delivery Device Vent Setting Inspired O2 Critical Value Sodium 143 Potassium 4.0 Chloride 107 Carbon Dioxide 24.7 Anion Gap 11 BUN 60 H Creatinine 4.17 H Estimated GFR 14 L POC Glucose Random Glucose 122 H Lactic Acid Calcium 7.9 L Phosphorus 5.5 H Magnesium 2.6 H Total Bilirubin 0.4 AST 13 L ALT 25 Alkaline Phosphatase 96 Ammonia Total Creatine Kinase Troponin I Total Protein 5.1 L D Albumin 2.1 L Urine Color Urine Clarity Urine pH Ur Specific Gary Urine Protein Urine Glucose (UA) Urine Ketones Urine Occult Blood Urine Nitrate Urine Bilirubin Urine Urobilinogen Ur Leukocyte Esterase Urine RBC Urine WBC Urine WBC Clumps Amorphous Sediment Urine Bacteria Urine Mucus Micro UA Comment Ur Microscopic Review Urine Culture Comments Random Vancomycin 24.6 Phenytoin Hepatitis A IgM Ab Nonreactive Hep Bs Antigen Nonreactive Hep B Core IgM Ab Nonreactive Hep C IgG Ab Nonreactive 05/21/18 05/21/18 08:07 11:05 WBC RBC Hgb Hct MCV MCH MCHC RDW Plt Count MPV Neut % (Auto) Lymph % (Auto) [place] % (Auto) Eos % (Auto) Baso % (Auto) Neut # (Auto) Lymph # (Auto) [place] # (Auto) Eos # (Auto) Baso # (Auto) WBC Differential Differential Comment Puncture Site Patient Temperature O2 Saturation ABG pH ABG pCO2 ABG pO2 ABG HCO3 ABG O2 Content ABG Base Excess ABG Methemoglobin David Test Hemoglobin Carboxyhemoglobin O2 Delivery Device Vent Setting Inspired O2 Critical Value Sodium Potassium Chloride Carbon Dioxide Anion Gap BUN Creatinine Estimated GFR POC Glucose 118 H 117 H Random Glucose Lactic Acid Calcium Phosphorus Magnesium Total Bilirubin AST ALT Alkaline Phosphatase Ammonia Total Creatine Kinase Troponin I Total Protein Albumin Urine Color Urine Clarity Urine pH Ur Specific Gary Urine Protein Urine Glucose (UA) Urine Ketones Urine Occult Blood Urine Nitrate Urine Bilirubin Urine Urobilinogen Ur Leukocyte Esterase Urine RBC Urine WBC Urine WBC Clumps Amorphous Sediment Urine Bacteria Urine Mucus Micro UA Comment Ur Microscopic Review Urine Culture Comments Random Vancomycin Phenytoin Hepatitis A IgM Ab Hep Bs Antigen Hep B Core IgM Ab Hep C IgG Ab Result Diagrams: 05/21/18 03:56 05/21/18 01:33 Microbiology: Microbiology 05/20/18 11:45 Urine Culture - Preliminary Catheterized Urine No growth in 24 hours 05/19/18 11:55 Urine Culture - Final Catheterized Urine No growth in 48 hours 05/19/18 08:21 Aerobic Blood Culture - Preliminary Blood - Peripheral No growth in 2 days Anaerobic Blood Culture - Preliminary No growth in 2 days 05/19/18 08:10 Aerobic Blood Culture - Preliminary Blood - Peripheral No growth in 2 days Anaerobic Blood Culture - Preliminary No growth in 2 days 05/19/18 10:40 Gram Stain - Final Sputum - Endotracheal Sputum Culture - Final S. aureus MRSA Imaging: Impressions Chest X-Ray 05/20/18 13:02 CONCLUSION: 1. New dialysis catheter placed via the right IJ catheter appears in good position. 2. Continued bilateral parenchymal infiltrates. 3. Endotracheal tube, central line and nasogastric tube in satisfactory position. Chest X-Ray 05/21/18 06:00 CONCLUSION: Stable to slight improvement in bilateral airspace disease. Support apparatus unchanged. Procedures: 05/08: Endotracheal intubation 05/12: Left IJ central line 05/09 medically extubated, later REintubated. Assessment and Plan - Disease Oriented Problem List (1) Acute respiratory failure (2) Hypoxic encephalopathy (3) Ischemic cardiomyopathy (4) Cardiac arrest Pertinent Non-Medical Issues: Psychosocial: Patient originally from [place], moved to [place] 14 years ago. for the past 14 years. Has 1 biological son, Valente who is 42 y/o and resizing [place]. 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 No service. Spiritual: No catholic affiliation reported. Legal: No advanced directives completed. Ethical issues impacting care: No ethical issues have been identified. Important Contacts: Patient's Dyan . Prognosis: Mr. Siddiqui is a 63-year-old male with no significant past medical history who presented to ED status post V. fib/V. tach arrest. Clinical course complicated by persistent post anoxic seizures. Initially poor neurologic assessment concern for anoxic injury. Some improvement over the past few days now following commands and tolerating ventilator weaning. Plan for medical extubation, though continues to remain Patient at high risk for further complications, continued decline and . Code Status: Alternative Code (intub only) Plan: * CODE STATUS:ALT code. INTUBATION ONLY, no cardiac resuscitation * HEALTHCARE DECISION-MAKING: Patient unable to participate in medical decision making in the setting of anoxic brain. Not likely to regain medical decision making capacity. No advance directives completed. As per [place] statue in the absence of AD, healthcare proxy decision making falls to patient's Dyan Siddiqui. has accepted this role and is fully supported by patient's sister and son. * GOALS OF CARE: reports that patient has verbalized in many occasions that "if he was unable to return to his independent self (talking, walking, independent with ADL's, riding his motorcycle), any other alternative would NOT be an acceptable quality of life". * 05/19/18 goals at this point are semi-aggressive wishing to maximize current treatment options given his neurologic improvement. further verbalizes reintubation only/no cardiac resuscitation. She is open to ongoing discussions as clinical course evolves. Possible patient neuro status may improve enough that he can participate as well. verbalizes that he absolutely would not want a tracheostomy or feeding tube. * 05/20 reintubated 05/19, pt unable to participate in discussions. * SYMPTOMS: * =Pain: Secondary to multiple lines, intubation, bedrest. Fentanyl drip currently on hold for planned medical extubation. Morphine 2 mg IV every 2 hours available as needed. Will monitor for signs and symptoms of pain, comfort level going forward. today calm, no signs of distress. No further recommendations at this time. = Dyspnea: Has been on mechanical vent since initial cardiac arrest event. Some concern for anoxic brain injury. Neurologic improvement in the past few days , medical extubation 05/19 morning, later reintubated due to pulmonary edema/volume overload. planned for dialysis, critical care still hopeful for medical extubation once fluid status corrected. = Agitation/encephalopathy: Status post cardiac arrest, and developed seizure activity. Concern for anoxic brain injury. Patient with significant agitation requiring multiple sedatives while on the mechanical vent. medical extubation yesterday.later reintubated, today calm, on mech vent + diprivan, fentanyl. Slow improvement in neurological assessments following commands. Ongoing evaluations will be needed to continue to assess neurologic function and recovery. Neurology following. * Palliative care to continue to follow-up for further clarifications of goals of care, family support as patient's clinical course continues to evolve. Attestation Attestation: To help prompt me to consider important information that might be impacting today's encounter and assessment, information from prior notes written by myself or my colleagues may have been "brought forward" into today's note. My signature on this note, however, is an attestation that I personally performed the exam, history, and/or decision-making noted today, and, unless otherwise indicated, the interactions with patient, family, and staff as well as the review of records all occurred today. I also attest that the listed assessment and stated plan reflect my best clinical judgment today based on the combination of historical information, prior notes, and today's exam/ interactions. When time spent is documented, it refers only to time spent today by the signer, or if indicated, combined time spent today by collaborating physician/nurse practitioner.
--- NOTE | 2018-05-21 15:42 | MG ---
cc: Yoko Bright MD AGE: [age] years old. EEG NUMBER: [id number] REFERRING PHYSICIAN: Pablo Connor MD ROOM: 503 Photic done 250 mcg fentanyl, 50 mcg of Diprivan. This is a repeat study. CT shows punctate hyperdensity, hemorrhage in the right mid araseli. EEG: I do not have the report from 05/13/2018. CLINICAL HISTORY: A 63-year-old man status post cardiac arrest, ventricular fibrillation, ventricular tachycardia, defibrillated twice in the field. MEDICATIONS: 1. Albuterol. 2. Cordarone. 3. Zosyn. DESCRIPTION OF RECORD: The background shows consistent slowing 1-2 Hz seen bilaterally. At times 3 Hz, but predominantly 2. Photic stimulation is done towards the end of the recording with minimal driving response. IMPRESSION: Moderate slowing of background consistent with encephalopathic process. No epileptic activity. Clinical correlation. Yoko Bright MD DF/ct , 03:12 PM , 03:17 PM
--- NOTE | 2018-05-21 16:09 | P.PNNP ---
Subjective Interval history: patient remain on Vent had dialysis earlier Physical Exam Vital signs: Vital Signs 05/20/18 16:20 05/20/18 19:38 05/20/18 19:45 Temperature Pulse Rate 81 Respiratory Rate 18 18 18 Blood Pressure Pulse Oximetry 97 97 05/20/18 20:00 05/20/18 21:00 05/20/18 22:00 Temperature 98.4 F Pulse Rate 82 79 81 Respiratory Rate Blood Pressure 102/55 L 116/59 L 99/55 L Pulse Oximetry 98 98 98 05/20/18 23:00 05/21/18 00:00 05/21/18 00:01 Temperature Pulse Rate 82 87 Respiratory Rate 23 18 Blood Pressure 131/68 122/67 Pulse Oximetry 99 98 94 L 05/21/18 01:00 05/21/18 02:00 05/21/18 03:00 Temperature Pulse Rate 84 83 86 Respiratory Rate Blood Pressure 103/56 L 107/57 L 111/58 L Pulse Oximetry 93 L 95 95 05/21/18 03:42 05/21/18 03:43 05/21/18 04:00 Temperature Pulse Rate 83 85 Respiratory Rate 16 18 Blood Pressure 97/56 L Pulse Oximetry 95 95 05/21/18 05:00 05/21/18 06:00 05/21/18 07:00 Temperature Pulse Rate 80 85 82 Respiratory Rate 16 Blood Pressure 119/60 105/56 L Pulse Oximetry 96 99 05/21/18 08:00 05/21/18 09:00 05/21/18 11:00 Temperature 97.8 F Pulse Rate 82 83 92 H Respiratory Rate 18 18 Blood Pressure 106/56 L Pulse Oximetry 99 05/21/18 12:00 05/21/18 12:30 05/21/18 16:00 Temperature 99.1 F 98.8 F Pulse Rate 90 91 H Respiratory Rate 18 11 L 13 Blood Pressure 124/63 113/57 L Pulse Oximetry 100 100 97 Intake & Output 05/20/18 05/21/18 05/21/18 18:59 06:59 18:59 Intake Total 1156.1 / 1156.1 1100 / 1100 950 / 950 Output Total 4550 / 4550 1200 / 1200 3000 / 3000 Balance -3393.9 / -3393.9 -100 / -100 -2049 / -2049 Weight 80 kg Intake: IV 1156.1 / 1156.1 900 / 900 950 / 950 Bumex Inj 25 mg In 100 ml @ 0.5 6.1 / 6.1 MG/HR 2 mls/hr IV.CONT .Q24H [facility] Rx#:[id number] Diprivan 1000 mg/100 ml Inj 1, 300 / 300 300 / 300 200 / 200 000 mg In 100 ml @ 5 MCG/KG/MIN 2.547 mls/hr IV.CONT TITRATE PRN Rx#:[id number] Flexbumin 25% Inj 100 ML @ 60 200 / 200 100 / 100 mls/hr IV.SIG Q12H [facility] Rx#: [id number] Zyvox 600 mg Premix 300 ML @ 300 / 300 300 / 300 300 / 300 300 mls/hr IV.SIG Q12H [facility] Rx#: [id number] Zosyn 2.25 GM Premix 50 ML @ 100 / 100 50 / 50 100 / 100 100 mls/hr IV.SIG Q8H [facility] Rx#: [id number] fentaNYL 10 mcg/mL Premix Drip 250 / 250 250 / 250 250 / 250 2,500 mcg In 250 ml @ 50 MCG/HR 5 mls/hr IV.SIG TITRATE PRN Rx #:[id number] Water Bolus Amount 200 / 200 Output: Hemodialysis Amount 3000 / 3000 3000 / 3000 Urine Amount (Catheter) 950 / 950 900 / 900 Indwelling Urethral Catheter 950 / 950 900 / 900 Gastric Drainage 600 / 600 300 / 300 Orogastric Tube 600 / 600 300 / 300 Other: Date of Last Bowel Movement 05/20/18 05/21/18 05/21/18 # Bowel Movements 1 1 Narrative: GENERAL: in NAD, SKIN: Warm and dry. HEAD: Atraumatic. Normocephalic. ENT: Intubated RESPIRATORY: Intubated CTA GASTROINTESTINAL: Abdomen soft, non-tender, nondistended. MUSCULOSKELETAL: Extremities without clubbing, cyanosis, or edema. No obvious deformities. NEUROLOGICAL: Intubated. PSYCHIATRIC: Intubated - Urinary Catheter Management Indwelling Temp Sensing Catheter Cath placed during this visit: yes, but has since been removed by the nurse Reason for continuing: Not indwelling catheter Insertion date: 05/08/18 Insertion time: 22:40 Removal date: 05/19/18 Removal time: 12:00 Straight Cath placed during this visit: yes Reason for continuing: Not indwelling catheter Insertion date: 05/20/18 Insertion time: 00:00 Condom Cath placed during this visit: no Indwelling Urethral Catheter Cath placed during this visit: yes Reason for continuing: Hourly intake/output Insertion date: 05/20/18 Insertion time: 08:30 Assessment and Plan - Assessment (1) Acute renal failure Code(s): N17.9 - Acute kidney failure, unspecified Status: Acute (2) Cardiac arrest Code(s): I46.9 - Cardiac arrest, cause unspecified Status: Acute (3) Seizure Code(s): R56.9 - Unspecified convulsions Status: Acute (4) Acute respiratory failure Code(s): J96.00 - Acute respiratory failure, unspecified whether with hypoxia or hypercapnia Status: Acute - Plan His condition deteriorated and has to be reintubated because of pulmonary edema however he has good urine output hemodialysis and Vas-Cath inserted on HD 3 L removed today Dialysis on MWF Monitor intake and output He has ATN related to vancomycin induced toxicity
[2018-05-21] MEDS: Phenytoin Sodium 100 MG Capsule PO SCH (20:12)
[2018-05-22] MEDS: Propofol 1000 mg/100 ml Inj 1,000 MG/100 ML BOTTLE IV.CONT PRN ×5 (02:30→19:24)
[2018-05-22 04:00] LABS: Baso # (Auto) 0.1 th/mm3 (0.0-0.2); Eos # (Auto) 0.5 th/mm3 (0.0-0.4); Eos % (Auto) 5.9 % (0.0-4.0); Hematocrit 29.1 % (39.0-51.0); Hemoglobin 9.7 gm/dL (13.0-17.0); Lymph # (Auto) 1.1 th/mm3 (1.0-4.8); Lymph % (Auto) 12.9 % (9.0-44.0); Mean Corpuscular HGB Conc 33.2 % (32.0-36.0); Mean Corpuscular Hemoglobin 28.3 pg (27.0-34.0); Mean Corpuscular Volume 85.4 fL (80.0-100.0); Mean Platelet Volume 9.7 fL (7.0-11.0); Mono # (Auto) 0.7 th/mm3 (0.0-0.9); Mono % (Auto) 7.5 % (0.0-8.0); Neut # (Auto) 6.4 th/mm3 (1.8-7.7); Neut % (Auto) 72.7 % (16.0-70.0); Platelet Count 393 th/mm3 (150-450); Red Cell Distribution Width 15.6 % (11.6-17.2); White Blood Count 8.8 th/mm3 (4.0-11.0)
[2018-05-22 04:16] LABS: Calcium 8.5 mg/dL (8.5-10.1); Carbon Dioxide 27.4 meq/L (21.0-32.0); Magnesium 2.8 mg/dL (1.5-2.5); Phosphorus 6.2 mg/dL (2.5-4.9); Potassium 3.6 meq/L (3.5-5.1)
[2018-05-22] MEDS: Piperacil/Tazo 2.25 GM Premix 50 ML IV.SIG SCH ×3 (04:21→20:09)
[2018-05-22] MEDS: Albumin Human 25% Inj 100 ML IV.SIG SCH ×2 (04:22→16:29)
[2018-05-22] MEDS: Oral Hygiene Kit OROPHARYNG SCH ×3 (04:22→15:00)
[2018-05-22] MEDS: Artificial Tears Opth Drops 15 ML Bottle EACH EYE SCH ×3 (04:22→20:09)
[2018-05-22] MEDS: Insulin NovoLOG Aspart Correctional Sugar Inj SQ SCH ×5 (04:24→19:26)
--- NOTE | 2018-05-22 05:18 | XR ---
EXAM DATE: 05/22/2018 4:32 AM EST AGE/SEX: 63 years / Male INDICATIONS: Shortness of breath, possible pulmonary disease. CLINICAL DATA: This is the patient's subsequent encounter. Patient reports that signs and symptoms h ave been present for 2 weeks and indicates a pain score of Nonresponsive. MEDICAL/SURGICAL HISTORY: Seizures. Myocardial infarction. Non-responsive. COMPARISON: [facility], CHEST 1V SINGLE AP, 05/21/2018. . FINDINGS: Endotracheal tube and nasogastric tube in good position. Right central line in superior vena cava. Bi lateral mostly basilar airspace disease and pleural effusions similar to May 21. No pneumothorax . CONCLUSION: Stable exam compared with May 21. Electronically signed by: Jay Silverio MD 05/22/2018 5:16 AM EST
[2018-05-22] MEDS: Heparin - SQ 10,000 UNITS/ML Vial SQ SCH ×3 (05:19→22:20)
[2018-05-22] MEDS: fentaNYL 10 mcg/mL Premix Drip 2,500 MCG/250 ML BAG IV.SIG PRN ×2 (05:23→15:43)
[2018-05-22] MEDS: Senna/Docusate Sodium 8.6/50 MG Tablet PO SCH ×2 (08:11→20:09)
[2018-05-22] MEDS: Polyethylene Glycol 3350 17 GM Packet PO SCH ×2 (08:11→20:09)
[2018-05-22] MEDS: Amiodarone 200 MG Tablet PO SCH (08:11)
[2018-05-22] MEDS: Mupirocin 2% Nasal Oint Topical Syringe EACH NARE SCH ×2 (08:12→20:08)
[2018-05-22] MEDS: Chlorhexidine 0.12% Oral Kit 15 ML UDC OROPHARYNG SCH ×2 (08:13→19:25)
--- NOTE | 2018-05-22 08:27 | P.PNCA ---
Subjective Interval history: Intubated. Sedated. Medications and Allergies Active Medications: Active Medications Acetaminophen (Tylenol) 650 mg PO Q6H PRN PRN Reason: PAIN 1-5 AND/OR FEVER >101F Last Admin: 05/16/18 21:30 Dose: 650 mg Acetaminophen (Tylenol) 650 mg PO UNSCH PRN PRN Reason: SEE LABEL COMMENTS Albuterol (Albuterol Neb (Prn)) 2.5 mg NEB Q2HR NEB PRN PRN Reason: DYSPNEA Last Admin: 05/17/18 19:38 Dose: 2.5 mg Albuterol (Duoneb Neb (Chao)) 1 ampul NEB Q4HR NEB [facility] Last Admin: 05/22/18 07:49 Dose: 1 ampul Amiodarone HCl (Cordarone) 400 mg PO DAILY [facility] Last Admin: 05/22/18 08:11 Dose: 400 mg Artificial Tears (Tears Naturale Opth Drops) 1 drop EACH EYE Q8H [facility] Last Admin: 05/22/18 04:22 Dose: 1 drop Aspirin (Aspirin Chew) 81 mg PO DAILY [facility] Last Admin: 05/22/18 08:11 Dose: 81 mg Atorvastatin Calcium (Lipitor) 10 mg PO HS [facility] Last Admin: 05/21/18 20:12 Dose: 10 mg Bisacodyl (Dulcolax Supp) 10 mg RECTAL DAILY PRN PRN Reason: SEVERE CONSITIPATION Carvedilol (Coreg) 3.125 mg PO BID [facility] Last Admin: 05/22/18 08:12 Dose: 3.125 mg Chlorhexidine Gluconate (Peridex 0.12% Oral Kit) 15 ml OROPHARYNG BID@0800, 2000 [facility] Last Admin: 05/22/18 08:13 Dose: 15 ml Clonidine HCl (Catapres) 0.1 mg PO UNSCH PRN PRN Reason: SEE LABEL COMMENTS Dextrose (D50w Vial) 50 ml IV.PUSH UNSCH PRN PRN Reason: PER HYPOGLYCEMIA PROTOCOL Last Admin: 05/22/18 04:33 Dose: 50 ml Diphenhydramine HCl (Benadryl) 25 mg PO UNSCH PRN PRN Reason: SEE LABEL COMMENTS Gelatin (Gelfoam 12 Mm/7 Mm Topical) 1 foam TOPICAL PRN PRN PRN Reason: help stop bleeding from site Gentamicin Sulfate (Gentamicin Inj) 20 mg OTHER WITH DIALYSIS PRN PRN Reason: Dwell Gentamycin Lock Last Admin: 05/21/18 12:24 Dose: 20 mg Glucagon (Glucagon Inj) 1 mg OTHER PRN PRN PRN Reason: for Hypoglycemia Protocol Heparin Sodium (Porcine) (Heparin Inj) 5,000 units SQ Q8HR [facility] Last Admin: 05/22/18 05:19 Dose: 5,000 units Heparin Sodium (Porcine) (Heparin Inj) 8,000 units OTHER WITH DIALYSIS PRN PRN Reason: for machine prime Heparin Sodium (Porcine) (Heparin Inj) 1,000 units OTHER WITH DIALYSIS PRN PRN Reason: Dwell Heparin to Fill Catheter Hydralazine HCl (Apresoline Inj) 10 mg IV.PUSH Q1H PRN PRN Reason: Sbp>140, Dbp>90 Last Admin: 05/10/18 08:00 Dose: 10 mg Albumin Human (Flexbumin 25% Inj) 100 mls @ 60 mls/hr IV.SIG Q12H [facility] Last Infusion: 05/22/18 05:19 Dose: Infused Fentanyl (Fentanyl 10 Mcg/Ml Premix Drip) 2,500 mcg in 250 mls @ 5 mls/hr IV.SIG TITRATE PRN; Protocol PRN Reason: Per Protocol Last Admin: 05/22/18 05:23 Dose: 250 mcg/hr, 25 mls/hr Propofol (Diprivan 1000 Mg/100 Ml Inj) 1,000 mg in 100 mls @ 2.547 mls/hr IV.CONT TITRATE PRN; Protocol PRN Reason: Per Protocol Last Admin: 05/22/18 06:38 Dose: 50 mcg/kg/min, 25.47 mls/hr Dexmedetomidine HCl 200 mcg/ (Sodium Chloride) 50 mls @ 4.24 mls/hr IV.CONT TITRATE PRN; Protocol PRN Reason: Per Protocol Piperacillin/Tazobactam/Dextrose (Zosyn 2.25 Gm Premix) 50 mls @ 100 mls/hr IV.SIG Q8H [facility] Last Infusion: 05/22/18 05:19 Dose: Infused Linezolid (Zyvox 600 Mg Premix) 300 mls @ 300 mls/hr IV.SIG Q12H [facility] Last Admin: 05/22/18 08:13 Dose: 300 mls/hr Sodium Chloride (Ns Inj) 1,000 mls @ 0 mls/hr OTHER .Q0M PRN PRN Reason: for prime and rinse back Sodium Chloride (Ns Inj) 1,000 mls @ 200 mls/hr OTHER .Q5H PRN PRN Reason: for dialyzer flush PRN Sodium Chloride (Ns Inj) 1,000 mls @ 0 mls/hr IV.CONT .Q0M PRN PRN Reason: hypotension / volume replace Albumin Human (Flexbumin 25% Inj) 100 mls @ 60 mls/hr IV.SIG WITH DIALYSIS PRN PRN Reason: hypotension / volume replace Insulin Aspart (Novolog Insulin Correctional Sugar Inj) 0 unit SQ Q4HR [facility]; Protocol Last Admin: 05/22/18 08:12 Dose: Not Given Insulin Detemir (Levemir Inj) 8 unit SQ BID [facility] Last Admin: 05/18/18 22:31 Dose: 8 unit Labetalol HCl (Trandate Inj) 10 mg IV.PUSH Q1H PRN PRN Reason: Sbp>140, Dbp>90, Hr>65 Last Admin: 05/10/18 14:30 Dose: 10 mg Lactulose (Lactulose Liq) 30 ml PO DAILY PRN PRN Reason: SEVERE CONSITIPATION Lactulose (Lactulose Liq) 30 ml PO BID [facility] Last Admin: 05/22/18 08:11 Dose: 30 ml Lorazepam (Ativan Inj) 1 mg IV.PUSH Q1H PRN PRN Reason: SEE LABEL COMMENTS Mannitol (Mannitol Inj) 12.5 gm IV.PUSH UNSCH PRN PRN Reason: hypotension / volume replace Metoclopramide HCl (Reglan Inj) 5 mg IV.PUSH Q8H [facility]; Protocol Last Admin: 05/22/18 08:12 Dose: 5 mg Miscellaneous Medication () 1 each OROPHARYNG 0000,0400,1200,1600 [facility] Last Admin: 05/22/18 04:22 Dose: 1 each Morphine Sulfate (Morphine Inj) 2 mg IV.PUSH Q2H PRN PRN Reason: PAIN SCALE 6 TO 10 Last Admin: 05/16/18 21:28 Dose: 2 mg Mupirocin (Bactroban 2% Nasal Oint) 1 applicatio EACH NARE BID [facility] Last Admin: 05/22/18 08:12 Dose: 1 applicatio Nitroglycerin (Nitrostat Sl) 0.4 mg SL Q5M PRN PRN Reason: CHEST PAIN Ondansetron HCl (Zofran Inj) 4 mg IV.PUSH Q6H PRN PRN Reason: NAUSEA OR VOMITING Ondansetron HCl (Zofran Inj) 4 mg IV.PUSH UNSCH PRN PRN Reason: NAUSEA OR VOMITING Pantoprazole Sodium (Protonix Inj) 40 mg IV.PUSH Q24H [facility] Last Admin: 05/21/18 12:49 Dose: 40 mg Phenytoin Sodium (Dilantin) 300 mg PO HS [facility] Last Admin: 05/21/18 20:12 Dose: 300 mg Polyethylene Glycol (Miralax) 17 gm PO BID [facility] Last Admin: 05/22/18 08:11 Dose: 17 gm Senna/Docusate Sodium (Lizbeth-Colace) 1 tab PO BID [facility] Last Admin: 05/22/18 08:11 Dose: 1 tab Sennosides (Senokot) 17.2 mg PO Q12H PRN PRN Reason: Moderate Constipation Sodium Chloride (Ns Flush) 2 ml IV.FLUSH BID [facility] Last Admin: 05/22/18 08:13 Dose: 2 ml Sodium Chloride (Ns Flush) 2 ml IV.FLUSH PRN PRN PRN Reason: FLUSH AFTER USING IV ACCESS Sodium Chloride (Ns Flush) 0 ml IV.FLUSH DAILY [facility] Last Admin: 05/22/18 08:13 Dose: Not Given Sodium Chloride (Ns Flush) 5 ml IV.FLUSH PRN PRN PRN Reason: flush each lumen during HD Sodium Chloride (Ns Flush) 0 ml IV.FLUSH PRN PRN PRN Reason: FLUSH AFTER USING IV ACCESS Allergies Allergy/AdvReac Type Severity Reaction Status Date / Time No Known Allergies Allergy Uncoded 02/17/15 12:05 Home Medications Medication Instructions Recorded Confirmed Type No Known Home Medications 05/08/18 05/08/18 History Physical Exam Vital signs: Vital Signs 05/21/18 09:00 05/21/18 11:00 05/21/18 12:00 Temperature 99.1 F Pulse Rate 83 92 H 90 Respiratory Rate 18 18 Blood Pressure 124/63 Pulse Oximetry 100 05/21/18 12:30 05/21/18 16:00 05/21/18 18:28 Temperature 98.8 F Pulse Rate 91 H Respiratory Rate 11 L 13 12 Blood Pressure 113/57 L Pulse Oximetry 100 97 96 05/21/18 19:51 05/21/18 20:00 05/21/18 23:38 Temperature 98.2 F Pulse Rate 85 83 76 Respiratory Rate 16 16 13 Blood Pressure 103/56 L Pulse Oximetry 96 97 100 05/22/18 00:00 05/22/18 03:41 05/22/18 04:00 Temperature 98.4 F 98.7 F Pulse Rate 75 78 78 Respiratory Rate 16 16 14 Blood Pressure 96/53 L 133/66 Pulse Oximetry 99 98 97 05/22/18 07:49 05/22/18 08:00 Temperature 99.0 F Pulse Rate 79 79 Respiratory Rate 12 10 L Blood Pressure 105/56 L Pulse Oximetry 95 97 Intake & Output 05/21/18 05/22/18 05/22/18 18:59 06:59 18:59 Intake Total 1150 / 1150 1300 / 1300 Output Total 3700 / 3700 1350 / 1350 Balance -2550 / -2550 -50 / -50 Weight 78.4 kg Intake: IV 1150 / 1150 1300 / 1300 Diprivan 1000 mg/100 ml Inj 1, 300 / 300 300 / 300 000 mg In 100 ml @ 5 MCG/KG/MIN 2.547 mls/hr IV.CONT TITRATE PRN Rx#:[id number] Flexbumin 25% Inj 100 ML @ 60 200 / 200 100 / 100 mls/hr IV.SIG Q12H [facility] Rx#: [id number] Zyvox 600 mg Premix 300 ML @ 300 / 300 300 / 300 300 mls/hr IV.SIG Q12H [facility] Rx#: [id number] Zosyn 2.25 GM Premix 50 ML @ 100 / 100 100 / 100 100 mls/hr IV.SIG Q8H [facility] Rx#: [id number] fentaNYL 10 mcg/mL Premix Drip 250 / 250 500 / 500 2,500 mcg In 250 ml @ 50 MCG/HR 5 mls/hr IV.SIG TITRATE PRN Rx #:[id number] Output: Hemodialysis Amount 3000 / 3000 Urine Amount (Catheter) 700 / 700 550 / 550 Indwelling Urethral Catheter 700 / 700 550 / 550 Gastric Drainage 800 / 800 Orogastric Tube 800 / 800 Other: Date of Last Bowel Movement 05/21/18 05/21/18 # Bowel Movements 0 - Constitutional Comments: Intubated. Sedated. - Routine Neck Exam Absent: JVD - Routine Respiratory Exam Comments: Clear lungs anteriorly. - Routine Cardiovascular Exam Present: RRR, S1, S2, murmur. Absent: gallop Comments: I/ systolic murmur apex. - Routine Abdominal Exam Present: soft, normoactive bowel sounds. Absent: organomegaly - Routine Extremities Exam Absent: cyanosis, clubbing, edema - Urinary Catheter Management Indwelling Temp Sensing Catheter Cath placed during this visit: yes, but has since been removed by the nurse Reason for continuing: Not indwelling catheter Insertion date: 05/08/18 Insertion time: 22:40 Removal date: 05/19/18 Removal time: 12:00 Straight Cath placed during this visit: yes Reason for continuing: Not indwelling catheter Insertion date: 05/20/18 Insertion time: 00:00 Condom Cath placed during this visit: no Indwelling Urethral Catheter Cath placed during this visit: yes Reason for continuing: Hourly intake/output Insertion date: 05/20/18 Insertion time: 08:30 Results 05/22/18 02:48 05/22/18 02:48 Cardiac Enzymes 05/21/18 Range/Units 01:33 AST 13 L (15-37) U/L CBC 05/21/18 05/22/18 Range/Units 03:56 02:48 WBC 14.0 H 8.8 (4.0-11.0) th/mm3 RBC 3.86 L 3.40 L (4.50-5.90) mil/mm3 Hgb 10.9 L 9.7 L (13.0-17.0) gm/dL Hct 33.2 L 29.1 L (39.0-51.0) % Plt Count 344 393 (150-450) th/mm3 Neut # (Auto) 11.6 H 6.4 (1.8-7.7) th/mm3 Lymph # (Auto) 0.9 L 1.1 (1.0-4.8) th/mm3 Daniels # (Auto) 0.9 0.7 (0.0-0.9) th/mm3 Eos # (Auto) 0.6 H 0.5 H (0.0-0.4) th/mm3 Baso # (Auto) 0.1 0.1 (0.0-0.2) th/mm3 Comprehensive Metabolic Panel 05/21/18 05/22/18 Range/Units 01:33 02:48 Sodium 143 143 (136-145) meq/L Potassium 4.0 3.6 (3.5-5.1) meq/L Chloride 107 104 (98-107) meq/L Carbon Dioxide 24.7 27.4 (21.0-32.0) meq/L BUN 60 H 44 H (7-18) mg/dL Creatinine 4.17 H 3.71 H (0.60-1.30) mg/dL Calcium 7.9 L 8.5 (8.5-10.1) mg/dL AST 13 L (15-37) U/L ALT 25 (12-78) U/L Alkaline Phosphatase 96 (45-117) U/L Total Protein 5.1 L D (6.4-8.2) g/dL Albumin 2.1 L (3.4-5.0) g/dL Intake and Output 05/21/18 05/22/18 05/22/18 22:59 06:59 14:59 Intake Total 550 / 550 950 / 950 Output Total 700 / 700 1350 / 1350 Balance -150 / -150 -400 / -400 Intake: IV 550 / 550 950 / 950 Diprivan 1000 mg/100 ml Inj 1, 200 / 200 200 / 200 000 mg In 100 ml @ 5 MCG/KG/MIN 2.547 mls/hr IV.CONT TITRATE PRN Rx#:[id number] Flexbumin 25% Inj 100 ML @ 60 100 / 100 100 / 100 mls/hr IV.SIG Q12H [facility] Rx#: [id number] Zyvox 600 mg Premix 300 ML @ 300 / 300 300 mls/hr IV.SIG Q12H [facility] Rx#: [id number] Zosyn 2.25 GM Premix 50 ML @ 100 / 100 100 mls/hr IV.SIG Q8H [facility] Rx#: [id number] fentaNYL 10 mcg/mL Premix Drip 250 / 250 250 / 250 2,500 mcg In 250 ml @ 50 MCG/HR 5 mls/hr IV.SIG TITRATE PRN Rx #:[id number] Output: Urine Amount (Catheter) 700 / 700 550 / 550 Indwelling Urethral Catheter 700 / 700 550 / 550 Gastric Drainage 800 / 800 Orogastric Tube 800 / 800 Other: Date of Last Bowel Movement 05/21/18 05/21/18 # Bowel Movements 0 Weight 78.4 kg - Imaging and Cardiology Imaging: Impressions Chest X-Ray 05/20/18 13:02 CONCLUSION: 1. New dialysis catheter placed via the right IJ catheter appears in good position. 2. Continued bilateral parenchymal infiltrates. 3. Endotracheal tube, central line and nasogastric tube in satisfactory position. Chest X-Ray 05/21/18 06:00 CONCLUSION: Stable to slight improvement in bilateral airspace disease. Support apparatus unchanged. Chest X-Ray 05/22/18 06:00 CONCLUSION: Stable exam compared with May 21. Assessment and Plan - Assessment (1) ST elevation (STEMI) myocardial infarction involving left anterior descending coronary artery Code(s): I21.02 - ST elevation (STEMI) myocardial infarction involving left anterior descending coronary artery Status: Acute Plan: Remains hemodynamically stable. Improving CHF and respiratory status. Echo suggests patient sustained large LAD coronary territory infarction, EF ~30%. Renal function slowly improving. Continue current management. If has recovery of his renal function, consider cath. Will f/u periodically. (2) Cardiac arrest Code(s): I46.9 - Cardiac arrest, cause unspecified Status: Acute Plan: No further ventricular tachyarrhythmias. Continue oral Amiodarone. Consider Life Vest before discharge, or if no coronary revascularization done, recommend ICD implant. (3) Ischemic cardiomyopathy Code(s): I25.5 - Ischemic cardiomyopathy Status: Acute Plan: EF ~30% by echo. Chest x-ray slowly improving. Continue current regimen. - Plan Code Status: alternative code
--- NOTE | 2018-05-22 08:28 | XR ---
EXAM DATE: 05/22/2018 8:22 AM EST AGE/SEX: 63 years / Male INDICATIONS: Evaluate for ileus CLINICAL DATA: This is the patient's initial encounter. Patient reports that signs and symptoms have been present for 4 - 6 days and indicates a pain score of Nonresponsive. MEDICAL/SURGICAL HISTORY: . Seizures. Myocardial infarction Non-responsive. COMPARISON: No prior exams available for comparison. FINDINGS: Nasogastric tube present tip in the stomach. Gas present in nondilated colon and occasional nondilate d small bowel loops. No suspicious calcific densities. Phleboliths overlying the pelvis. Skeletal bailey ments appear intact. CONCLUSION: Nonspecific, benign intestinal gas pattern Electronically signed by: Tomy Albarran MD 05/22/2018 8:26 AM EST
--- NOTE | 2018-05-22 09:05 | P.PNCC ---
Subjective Subjective Remarks/Hospital Course: 63-year-old male presents to emergency department intubated after VF/VT arrest. He had to be defibrillated twice in the field, afterwards clear STEMI criteria was called by [facility]. Apparently heard a collapse in the next room found the patient unresponsive called 9 1. Apparently total downtime was about 10 minutes and had a very quick Rask. Blood pressure was little low and dopamine drip was started in the field. Patient also had amiodarone started in the field. Initially the STEMI alert was called brain demonstrated punctate hyperdensity characteristic of hemorrhage in the right mid araseli in the STEMI alert was canceled. The patient has been admitted to ICU for hypothermia protocol treatment post cardiac arrest. 05/09: Discussed with at bedside. Currently on target temperature monitoring. EEG performed. Replacing potassium and phosphorus this a.m. 05/10: Currently temperature is a 97. Has been rewarmed from target temperature monitoring. EEG revealed no epileptic activity. Replace potassium currently. MRI brain revealed no signs of hemorrhage. Will start on heparin drip IN protocol 900 units an hour and provide aspirin. Carvedilol started by cardiology during the a.m. 05/11: Phosphorus being replaced. Weaning off sedation currently. Rewarmed to 37 C. No problem. Tolerating tube feeds currently at 30 cc now. 05/12: Currently resting in bed. New central has been placed and targeted temperature monitoring Quatro catheter has been removed. Seizures overnight. Currently on fosphenytoin and levetiracetam. Remains on midazolam drip. Updated at bedside. 05/13: Low-grade temperature during the night continues greater than 99.0., Noted blood cultures negative growth to date. Remains encephalopathic .EEG revealed continued epileptiform activity. Patient noted phenobarbital level this a.m. subtherapeutic at 3.1. Noted persistent leukocytosis, bilateral pulmonary opacities, sputum culture pending. Palliative care has been consulted. 05/14: Sedative discontinued early this a.m.. Noted spontaneous eye opening with neurologist Dr. Connor at the bedside, not following any commands. EEG revealed a few spikes, patient continues on anticonvulsant regimen and seizure precautions. Noted hypertension systolic blood pressure greater than 170 Vasotec reinitiated. discussed findings with Dr. Connor at bedside we will continue to monitor discontinue all sedatives and continually evaluate neurological status. Plan this afternoon to meet with patient's Mrs. Siddiqui and palliative care. 05/15: Off all sedation noted spontaneous movement but not following any commands with excessive yawning and grimacing noted. Patient placed back on propofol low-dose infusion. Palliative care conference with patient's reveal patient to be placed in a no CPR CODE STATUS at this time. Discussion with Dr. Connor, neurology yesterday we will continue to monitor and evaluate optimizing care and continued evaluation at this time. No change in respiratory requirements however chest x-ray noted bilateral pleural effusions IV infusions decreased patient now normotensive carvedilol reinitiated. 05/16: Afebrile. Per RN yesterday the patient followed commands with left upper extremity. Upon my evaluation paid patient noted to be off sedation spontaneous eye opening and tracking. Excessive yawning and grimacing also noted. Propofol has been discontinued Precedex to maintain ventilator synchrony if required. Patient continues on heparin infusion. Leukocytosis has been resolved. Review of EEG per neurology only a few sharp spikes phenobarbital has been discontinued. 05/17: Patient remains on Precedex infusion @ 1.2 mcg/kg/hr. Per report the patient was extremely agitated early this a.m.. Upon evaluation of the patient , he is responding to commands squeezing hands bilaterally, and also bilateral movement of lower extremities. Patient is nodding head to yes and no questions , and attempting to talk. 05/18: Afebrile. Remains on dexmedetomidine drip at 0.7 mg/kg/h. On low-dose propofol due to agitation. Arousable and does follow commands. Tolerating tube feeding. Currently normal sinus rhythm. 05/19: Creatinine currently 4.7. Arousable and quite agitated on the ventilator. Will attempt to wean off and hold tube feeds and attempt x-ray at 11 AM today. Noted elevated white blood count and persistent fevers. Pancultured today. 05/20: Dialysis catheter placed today right IJ. -3 L. Fevers or bleeding. Removed left IJ CVL. FiO2 down to 50% PEEP down to 10. Much improved respiratory status. Starting on tube feeding. 05/21: T-max 99.1. -3 L with hemodialysis yesterday and today. FiO2 much improved. Appears more comfortable on ventilator. Subjective: 05/22: Poor tube feed tolerance overnight t. Slightly hypoglycemic. Will restart today. Plan for hemodialysis again today and possible extubation in a.m. 05/23. Objective Vital Signs / I&O: Vital Signs 05/21/18 11:00 05/21/18 12:00 05/21/18 12:30 Temperature 99.1 F Pulse Rate 92 H 90 Respiratory Rate 18 18 11 L Blood Pressure 124/63 Pulse Oximetry 100 100 05/21/18 16:00 05/21/18 18:28 05/21/18 19:51 Temperature 98.8 F Pulse Rate 91 H 85 Respiratory Rate 13 12 16 Blood Pressure 113/57 L Pulse Oximetry 97 96 96 05/21/18 20:00 05/21/18 23:38 05/22/18 00:00 Temperature 98.2 F 98.4 F Pulse Rate 83 76 75 Respiratory Rate 16 13 16 Blood Pressure 103/56 L 96/53 L Pulse Oximetry 97 100 99 05/22/18 03:41 05/22/18 04:00 05/22/18 07:49 Temperature 98.7 F Pulse Rate 78 78 79 Respiratory Rate 16 14 12 Blood Pressure 133/66 Pulse Oximetry 98 97 95 05/22/18 08:00 Temperature 99.0 F Pulse Rate 79 Respiratory Rate 10 L Blood Pressure 105/56 L Pulse Oximetry 97 Intake & Output 05/21/18 05/22/18 05/22/18 18:59 06:59 18:59 Intake Total 1150 / 1150 1300 / 1300 Output Total 3700 / 3700 1350 / 1350 Balance -2550 / -2550 -50 / -50 Weight 78.4 kg Intake: IV 1150 / 1150 1300 / 1300 Diprivan 1000 mg/100 ml Inj 1, 300 / 300 300 / 300 000 mg In 100 ml @ 5 MCG/KG/MIN 2.547 mls/hr IV.CONT TITRATE PRN Rx#:[id number] Flexbumin 25% Inj 100 ML @ 60 200 / 200 100 / 100 mls/hr IV.SIG Q12H JIM Rx#: [id number] Zyvox 600 mg Premix 300 ML @ 300 / 300 300 / 300 300 mls/hr IV.SIG Q12H JIM Rx#: [id number] Zosyn 2.25 GM Premix 50 ML @ 100 / 100 100 / 100 100 mls/hr IV.SIG Q8H JIM Rx#: [id number] fentaNYL 10 mcg/mL Premix Drip 250 / 250 500 / 500 2,500 mcg In 250 ml @ 50 MCG/HR 5 mls/hr IV.SIG TITRATE PRN Rx #:[id number] Output: Hemodialysis Amount 3000 / 3000 Urine Amount (Catheter) 700 / 700 550 / 550 Indwelling Urethral Catheter 700 / 700 550 / 550 Gastric Drainage 800 / 800 Orogastric Tube 800 / 800 Other: Date of Last Bowel Movement 05/21/18 05/21/18 05/21/18 # Bowel Movements 0 Result Diagrams: 05/22/18 02:48 05/22/18 02:48 Other Results: Microbiology 05/20/18 11:45 Catheterized Urine Urine Culture - Preliminary No growth in 24 hours 05/19/18 11:55 Catheterized Urine Urine Culture - Final No growth in 48 hours 05/19/18 08:21 Blood - Peripheral Aerobic Blood Culture - Preliminary No growth in 2 days 05/19/18 08:21 Blood - Peripheral Anaerobic Blood Culture - Preliminary No growth in 2 days 05/19/18 08:10 Blood - Peripheral Aerobic Blood Culture - Preliminary No growth in 2 days 05/19/18 08:10 Blood - Peripheral Anaerobic Blood Culture - Preliminary No growth in 2 days 05/19/18 10:40 Sputum - Endotracheal Gram Stain - Final 05/19/18 10:40 Sputum - Endotracheal Sputum Culture - Final S. aureus MRSA 05/13/18 11:50 Sputum - Endotracheal Gram Stain - Final 05/13/18 11:50 Sputum - Endotracheal Sputum Culture - Final S. aureus MRSA 05/09/18 16:00 Blood - Line Aerobic Blood Culture - Final No growth in 5 days 05/09/18 16:00 Blood - Line Anaerobic Blood Culture - Final No growth in 5 days 05/08/18 21:38 Blood - Peripheral Aerobic Blood Culture - Final No growth in 5 days 05/08/18 21:38 Blood - Peripheral Anaerobic Blood Culture - Final No growth in 5 days 05/08/18 21:33 Blood - Peripheral Aerobic Blood Culture - Final No growth in 5 days 05/08/18 21:33 Blood - Peripheral Anaerobic Blood Culture - Final No growth in 5 days 05/08/18 22:30 Catheterized Urine Urine Culture - Final No growth in 48 hours Imaging: Chest X-Ray 05/08/18 20:43 CONCLUSION: 1. ET tube in good position. 2. Gastric tube side-port is in the lower chest and the tube needs to be advanced at least [address] 05/08/18 20:43 CONCLUSION: 1. Punctate hyperdensity characteristic of hemorrhage in the right mid araseli. 2. No acute findings in the supratentorial brain. . Cervical Spine CT 05/08/18 20:44 CONCLUSION: 1. Moderate degenerative changes at C6-7. 2. Otherwise negative exam. Head MRI 05/10/18 00:00 CONCLUSION: 1. No evidence of acute hemorrhage within the right araseli. 2. No acute infarct, acute hemorrhage, midline shift or extra-axial fluid collection. 3. Mucosal thickening involving the left maxillary sinus, bilateral anterior ethmoid air cells and bilateral sphenoid sinuses. 4. Some fluid within the mastoid air cells bilaterally. Chest X-Ray 05/10/18 06:00 CONCLUSION: Infiltrating the medial right lower lobe or right middle lobe. Infiltrate is increased from the previous study Head MRA 05/10/18 06:52 CONCLUSION: 1. Negative MRA [place] ([place] [facility] [place]) non contrast. Chest X-Ray 05/11/18 06:00 CONCLUSION: Bilateral pleural effusions right greater than left. ET tube in good position. Chest X-Ray 05/12/18 06:00 CONCLUSION: No change in bilateral opacity likely representing a combination of mild pulmonary edema/pleural effusions. Chest X-Ray 05/12/18 11:03 CONCLUSION: 1. Central line without pneumothorax. 2. Unchanged bilateral pleural effusions and bibasilar pulmonary infiltrates. Chest X-Ray 05/13/18 06:00 CONCLUSION: No significant interval change with persistent bilateral pulmonary parenchymal opacity and small bilateral pleural effusions. Chest X-Ray 05/15/18 00:00 CONCLUSION: No significant interval change with persistent bilateral pulmonary parenchymal opacity and bilateral pleural effusions. Chest X-Ray 05/17/18 04:00 CONCLUSION: Support apparatus unchanged. Stable basilar airspace pleural effusions. Abdomen/Bladder Ultrasound 05/18/18 00:00 CONCLUSION: 1. Negative renal ultrasound examination. 2. The urinary bladder is decompressed by Orellana catheter. Chest X-Ray 05/19/18 00:00 CONCLUSION: 1. Worsening severe diffuse infiltrates consistent with severe pulmonary edema or pneumonia. Clinical correlation is recommended. 2. Endotracheal tube has its tip approximately 1 cm above the fannie. This could be pulled back 2 cm for more optimal positioning. Chest X-Ray 05/19/18 06:00 CONCLUSION: Support apparatus unchanged and in satisfactory position. Basilar airspace disease and pleural effusions similar to May 17. Chest X-Ray 05/20/18 06:00 CONCLUSION: Improved airspace disease since May 19 on the left side. No new infiltrate. Chest X-Ray 05/20/18 13:02 CONCLUSION: 1. New dialysis catheter placed via the right IJ catheter appears in good position. 2. Continued bilateral parenchymal infiltrates. 3. Endotracheal tube, central line and nasogastric tube in satisfactory position. Chest X-Ray 05/21/18 06:00 CONCLUSION: Stable to slight improvement in bilateral airspace disease. Support apparatus unchanged. Chest X-Ray 05/22/18 06:00 CONCLUSION: Stable exam compared with May 21. Abdomen X-Ray 05/22/18 06:44 CONCLUSION: Nonspecific, benign intestinal gas pattern Objective Remarks: GENERAL: 63-year-old male currently orotracheally intubated SKIN: Warm and dry. No rash. HEAD: Atraumatic. Normocephalic. EYES: Pupils equal and round and minimally reactive bilaterally. No scleral icterus. No injection or drainage. ENT: No nasal bleeding or discharge. Mucous membranes pink and moist. NECK: Trachea midline. No JVD. Right IJ hemodialysis catheter is clean dry and intact. CARDIOVASCULAR: RRR S1, S2. No S4. RESPIRATORY: No accessory muscle use. Clear to auscultation. Breath sounds equal bilaterally. GASTROINTESTINAL: Abdomen soft, non-tender, nondistended. Hepatic and splenic margins not palpable. Normal active bowel sounds MUSCULOSKELETAL: Extremities without clubbing,. Trace to 1+ bilateral lower extremity edema NEUROLOGICAL: GCS 11T. Alert and responsive to commands moves all 4 extremities x4. Assessment and Plan - Assessment and Plan Plan: Neuro/Psych: Rule out anoxic encephalopathy Original CT brain on admission revealed possible 3 mm mid right araseli hemorrhage. Currently propofol infusion at 50mcgs per kilogram per minute/fentanyl drip at 250 stacey grams an hour for sedation/analgesia while intubated, to maintain ventilator synchrony. Daily sedation vacation Goal of RASS -0 Neurology/Dr. Connor following EEG completed 05/09 with no epileptic activity. Repeat 05/12 with sharp activity. Currently on fosphenytoin 300 mg daily. Discontinued levetiracetam secondary to acute kidney injury 05/16 Dilantin level noted therapeutic. Recheck level in a.m. 05/20 MRI brain revealed left maxillary, bilateral ethmoid and sphenoid sinusitis. MRA brain revealed normal examination. Continue scheduled dosing lactulose 30 cc twice daily Trend ammonia level GCS 11T-responsive to commands CV Out of hospital cardiac arrest/V. 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 Haile. Will follow as needed. Awaiting return of renal function prior to heart catheterization. Possible LifeVest/ASD prior to discharge if neurological function continues. - Okay for carvedilol 3.125 mg twice daily, start aspirin 81 mg daily. Discontinued heparin drip. 05/12 Added enalapril 2.5 mg daily and atorvastatin 10 mg at night since MRI brain revealed no hemorrhage disContinue enalapril 2.5 mg daily in light of acute kidney injury Originally not candidate for cardiac catheterization due to pontine hemorrhage right mid araseli. This is been changed with MRI/A 2D echocardiogram revealed EF 30-35%. Ruptured chordae tendon possible involving mitral valve. Resp: Acute respiratory failurelikely aspiration with right lower lobe infiltrate and altered mental status PRVC ventilation Ventilator bundle Continue CPAP trial Head of bed at 30 degrees Albuterol/ipratropium aerosols every 4 hours with albuterol aerosols every 2 hours as needed dyspnea Chest x-ray revealed bilateral pulmonary opacities and small bilateral pleural effusions, slightly improved from 05/20 GI: Hyperammonia Vital 1.5 goal 60 cc output currently 60 cc an hour Pantoprazole for GI prophylaxis Docusate serum/senna 1 tablet twice daily for bowel regimen with lactulose 30 cc twice daily Follow-up on ammonia level in a.m. 05/23 : Orellana catheter placed for accurate I's and O's in a critical patient currentl Endo: Acute hyperglycemia Low TSH Sliding scale insulin with Accu-Cheks to maintain euglycemia. On insulin detemir 4 units twice daily TSH was 0.285. Normal free T4/total T3. Recheck 4-6-week HEME: Normocytic anemia Monitor CBC daily. Follow trends. No indication for transfusion of blood products at this time Renal Acute kidney injury Creatinine currently within normal limits Acute I's and O's monitor urine output Avoid nephrotoxic medications. Discontinue enalapril. Discontinued vancomycin. Continue furosemide. Discontinue levetiracetam. Negative urine eosinophils. Negative renal ultrasound for hydronephrosis. Received hemodialysis 05/20. End 05/21 ID: MRSA sputum positive 05/13 05/19 Monitor for signs and symptomatology infection Patient with aspiration. Discontinued vancomycin and piperacillin/tazobactam. Completed 7 days therapy. Currently on Linezolid and piperacillin l/tazobactam restarted 05/19. Day #23 FEN: Hyperphosphatemia Hypermagnesia Replace electrolytes as clinically indicated Discontinue IV fluid MSK: PT evaluate and treat Access -Left CVL day 8 removed 05/20. Right IJ hemodialysis catheter day 3 placed . Prophylaxis - -GI pantoprazole - -DVT -SCD/heparin subcu Level 3 followup
[2018-05-22] MEDS: Pantoprazole Inj 40 MG Vial IV.PUSH SCH (13:15)
--- NOTE | 2018-05-22 14:02 | P.DIET ---
Nutritional Evaluation Type of nutrition evaluation: follow-up Nutrition consult regarding: Tube Feeding Screening comments: 05/11 TF review Objective - Diagnosis s/p cardiac arrest, STEMI, Brain bleed - Objective % IBW: 108 (IBW = 166lb) Body Weight Used for Calculations: Actual Energy Needs - Lower Range (kCal/kg): 22 Energy Needs - Upper Range (kCal/kg): 28 Lower Limit kCal/kg (kCals): 1,797 Upper Limit kCal/kg (kCals): 2,288 Lower Limit Protein Factor (Grams per Kg): 1.2 Upper Limit Protein Factor (Grams per Kg): 1.5 Lower Protein Needs (Protein): 98 Upper Protein Needs (Protein): 123 Dietitian Reviewed in Medical Record: Current diet, Curent medications, Intake & Output, Labs, Medical history, Tube feeding Diet Order: TF Objective Comments: Labs: BUN 44, POC glucose 117 107 162, phos 6.2, Mg 2.8 HgbA1c 6.5% Assessment Assessment: Pt intubated, sedated w/ fentanyl, propofol and on mech vent. MD note mentioned pt received HD yesterday and will do so today again, w/ possible extubation on 05/23 a.m. TF was on hold yesterday d/t poor tolerance and was restarted today. Pt is receiving Nepro 1.8 @ 10mL/hr currently per . RD to recommend Vital 1.5 @ 60mL/hr to best meet assessed needs. Additional kcals (1.1 kcal/mL) provided by propofol when running. Monitor TF tolerance and glucose labs. Labs reviewed, dietitian following. Additional recs to follow r/t clinical course. Recommendations: 1. RD to recommend Vital 1.5 @ 60mL/hr to best meet pts nutritional needs 2. Monitor TF tolerance and glucose labs 3. Dietitian following 4. Additional recs to follow r/t clinical course Dietitian to Monitor: Lab values, Intake & Output, Tube feeding tolerance, Medical course
--- NOTE | 2018-05-22 15:53 | P.PNNP ---
Subjective Interval history: Patient is intubated on vent Physical Exam Vital signs: Vital Signs 05/21/18 16:00 05/21/18 18:28 05/21/18 19:51 Temperature 98.8 F Pulse Rate 91 H 85 Respiratory Rate 13 12 16 Blood Pressure 113/57 L Pulse Oximetry 97 96 96 05/21/18 20:00 05/21/18 23:38 05/22/18 00:00 Temperature 98.2 F 98.4 F Pulse Rate 83 76 75 Respiratory Rate 16 13 16 Blood Pressure 103/56 L 96/53 L Pulse Oximetry 97 100 99 05/22/18 03:41 05/22/18 04:00 05/22/18 07:49 Temperature 98.7 F Pulse Rate 78 78 79 Respiratory Rate 16 14 12 Blood Pressure 133/66 Pulse Oximetry 98 97 95 05/22/18 08:00 05/22/18 09:00 05/22/18 11:47 Temperature 99.0 F Pulse Rate 79 78 87 Respiratory Rate 10 L 14 Blood Pressure 105/56 L Pulse Oximetry 97 05/22/18 11:48 05/22/18 12:00 05/22/18 15:10 Temperature 99.6 F Pulse Rate 86 Respiratory Rate 14 18 12 Blood Pressure 108/56 L Pulse Oximetry 98 95 97 05/22/18 15:11 Temperature Pulse Rate 83 Respiratory Rate 12 Blood Pressure Pulse Oximetry Intake & Output 05/21/18 05/22/18 05/22/18 18:59 06:59 18:59 Intake Total 1150 / 1150 1300 / 1300 800 / 800 Output Total 3700 / 3700 1350 / 1350 Balance -2550 / -2550 -50 / -50 800 / 800 Weight 78.4 kg Intake: IV 1150 / 1150 1300 / 1300 800 / 800 Diprivan 1000 mg/100 ml Inj 1, 300 / 300 300 / 300 200 / 200 000 mg In 100 ml @ 5 MCG/KG/MIN 2.547 mls/hr IV.CONT TITRATE PRN Rx#:[id number] Flexbumin 25% Inj 100 ML @ 60 200 / 200 100 / 100 mls/hr IV.SIG Q12H JIM Rx#: [id number] Zyvox 600 mg Premix 300 ML @ 300 / 300 300 / 300 300 / 300 300 mls/hr IV.SIG Q12H JIM Rx#: [id number] Zosyn 2.25 GM Premix 50 ML @ 100 / 100 100 / 100 50 / 50 100 mls/hr IV.SIG Q8H JIM Rx#: [id number] fentaNYL 10 mcg/mL Premix Drip 250 / 250 500 / 500 250 / 250 2,500 mcg In 250 ml @ 50 MCG/HR 5 mls/hr IV.SIG TITRATE PRN Rx #:[id number] Output: Hemodialysis Amount 3000 / 3000 Urine Amount (Catheter) 700 / 700 550 / 550 Indwelling Urethral Catheter 700 / 700 550 / 550 Gastric Drainage 800 / 800 Orogastric Tube 800 / 800 Other: Date of Last Bowel Movement 05/21/18 05/21/18 05/21/18 # Bowel Movements 0 Narrative: GENERAL: in NAD, SKIN: Warm and dry. HEAD: Atraumatic. Normocephalic. ENT: Intubated RESPIRATORY: Intubated CTA GASTROINTESTINAL: Abdomen soft, non-tender, nondistended. MUSCULOSKELETAL: Extremities without clubbing, cyanosis, or edema. No obvious deformities. NEUROLOGICAL: Intubated. PSYCHIATRIC: Intubated - Urinary Catheter Management Indwelling Temp Sensing Catheter Cath placed during this visit: yes, but has since been removed by the nurse Reason for continuing: Not indwelling catheter Insertion date: 05/08/18 Insertion time: 22:40 Removal date: 05/19/18 Removal time: 12:00 Straight Cath placed during this visit: yes Reason for continuing: Not indwelling catheter Insertion date: 05/20/18 Insertion time: 00:00 Condom Cath placed during this visit: no Indwelling Urethral Catheter Cath placed during this visit: yes Reason for continuing: Hourly intake/output Insertion date: 05/20/18 Insertion time: 08:30 Assessment and Plan - Assessment (1) Acute renal failure Code(s): N17.9 - Acute kidney failure, unspecified Status: Acute (2) Cardiac arrest Code(s): I46.9 - Cardiac arrest, cause unspecified Status: Acute (3) Seizure Code(s): R56.9 - Unspecified convulsions Status: Acute (4) Acute respiratory failure Code(s): J96.00 - Acute respiratory failure, unspecified whether with hypoxia or hypercapnia Status: Acute - Plan His condition deteriorated and has to be reintubated because of pulmonary edema however he has good urine output hemodialysis and Vas-Cath inserted on HD next on Saturday Dialysis on MWF Monitor intake and output He has ATN related to vancomycin induced toxicity
[2018-05-22] MEDS: Phenytoin Sodium 100 MG Capsule PO SCH (20:08)
[2018-05-23] MEDS: Insulin NovoLOG Aspart Correctional Sugar Inj SQ SCH ×6 (00:15→21:28)
[2018-05-23] MEDS: Oral Hygiene Kit OROPHARYNG SCH ×4 (00:15→16:53)
[2018-05-23] MEDS: Propofol 1000 mg/100 ml Inj 1,000 MG/100 ML BOTTLE IV.CONT PRN ×4 (00:15→11:52)
[2018-05-23] MEDS: fentaNYL 10 mcg/mL Premix Drip 2,500 MCG/250 ML BAG IV.SIG PRN ×2 (00:45→10:08)
[2018-05-23] MEDS: Piperacil/Tazo 2.25 GM Premix 50 ML IV.SIG SCH ×3 (04:02→21:27)
[2018-05-23] MEDS: Artificial Tears Opth Drops 15 ML Bottle EACH EYE SCH ×3 (04:03→21:20)
[2018-05-23] MEDS: Albumin Human 25% Inj 100 ML IV.SIG SCH ×2 (04:03→16:53)
[2018-05-23 04:43] LABS: Baso # (Auto) 0.1 th/mm3 (0.0-0.2); Baso % (Auto) 1.1 % (0.0-2.0); Eos # (Auto) 0.6 th/mm3 (0.0-0.4); Eos % (Auto) 6.6 % (0.0-4.0); Hemoglobin 9.3 gm/dL (13.0-17.0); Lymph # (Auto) 0.9 th/mm3 (1.0-4.8); Lymph % (Auto) 10.4 % (9.0-44.0); Mean Corpuscular HGB Conc 33.1 % (32.0-36.0); Mean Corpuscular Volume 87.5 fL (80.0-100.0); Mean Platelet Volume 9.1 fL (7.0-11.0); Mono # (Auto) 0.6 th/mm3 (0.0-0.9); Mono % (Auto) 7.2 % (0.0-8.0); Neut # (Auto) 6.5 th/mm3 (1.8-7.7); Neut % (Auto) 74.7 % (16.0-70.0); Platelet Count 404 th/mm3 (150-450); Red Cell Distribution Width 15.2 % (11.6-17.2); White Blood Count 8.7 th/mm3 (4.0-11.0)
[2018-05-23 05:05] LABS: Calcium 9.4 mg/dL (8.5-10.1); Carbon Dioxide 26.5 meq/L (21.0-32.0); Phosphorus 6.6 mg/dL (2.5-4.9); Potassium 4.3 meq/L (3.5-5.1)
[2018-05-23] MEDS: Heparin - SQ 10,000 UNITS/ML Vial SQ SCH ×3 (05:11→21:29)
--- NOTE | 2018-05-23 06:21 | XR ---
EXAM DATE: 05/23/2018 5:48 AM EST AGE/SEX: 63 years / Male INDICATIONS: Respiratory failure. CLINICAL DATA: This is the patient's subsequent encounter. Patient reports that signs and symptoms h ave been present for 2 weeks and indicates a pain score of Nonresponsive. MEDICAL/SURGICAL HISTORY: . Seizures. Myocardial infarction Non-responsive. COMPARISON: C, CHEST 1V SINGLE AP, 05/22/2018. . FINDINGS: Portable AP view of the chest demonstrates a normal-sized cardiac silhouette. Right IJ line, ETT, mark ogastric tube remain present. EKG lines overlie the patient. There are stable bibasilar pleural-paren chymal opacities, right larger than left. No pneumothorax is identified. CONCLUSION: Stable chest x-ray with bibasilar opacities likely representing pleural effusions with associated vol ume loss and/or airspace consolidation. Electronically signed by: Tomy Jackson MD 05/23/2018 6:20 AM EST
[2018-05-23] MEDS: Chlorhexidine 0.12% Oral Kit 15 ML UDC OROPHARYNG SCH ×2 (08:17→21:19)
[2018-05-23] MEDS: Amiodarone 200 MG Tablet PO SCH (08:18)
[2018-05-23] MEDS: Senna/Docusate Sodium 8.6/50 MG Tablet PO SCH ×2 (08:18→21:20)
[2018-05-23] MEDS: Mupirocin 2% Nasal Oint Topical Syringe EACH NARE SCH ×2 (08:18→21:19)
[2018-05-23] MEDS: Polyethylene Glycol 3350 17 GM Packet PO SCH ×2 (08:18→21:20)
[2018-05-23] MEDS: Insulin Detemir Inj 1,000 UNIT/10 ML Vial SQ SCH ×2 (08:21→23:06)
--- NOTE | 2018-05-23 09:13 | P.PNNEU ---
Subjective Subjective Comments: no acute events Active Medications: Active Medications Acetaminophen (Tylenol) 650 mg PO Q6H PRN PRN Reason: PAIN 1-5 AND/OR FEVER >101F Last Admin: 05/16/18 21:30 Dose: 650 mg Acetaminophen (Tylenol) 650 mg PO UNSCH PRN PRN Reason: SEE LABEL COMMENTS Albuterol (Albuterol Neb (Prn)) 2.5 mg NEB Q2HR NEB PRN PRN Reason: DYSPNEA Last Admin: 05/17/18 19:38 Dose: 2.5 mg Albuterol (Duoneb Neb (Chao)) 1 ampul NEB Q4HR NEB [facility] Last Admin: 05/23/18 07:46 Dose: 1 ampul Amiodarone HCl (Cordarone) 400 mg PO DAILY [facility] Last Admin: 05/23/18 08:18 Dose: 400 mg Artificial Tears (Tears Naturale Opth Drops) 1 drop EACH EYE Q8H [facility] Last Admin: 05/23/18 04:03 Dose: 1 drop Aspirin (Aspirin Chew) 81 mg PO DAILY [facility] Last Admin: 05/23/18 08:17 Dose: 81 mg Atorvastatin Calcium (Lipitor) 10 mg PO HS [facility] Last Admin: 05/22/18 20:09 Dose: 10 mg Bisacodyl (Dulcolax Supp) 10 mg RECTAL DAILY PRN PRN Reason: SEVERE CONSITIPATION Carvedilol (Coreg) 3.125 mg PO BID [facility] Last Admin: 05/23/18 08:18 Dose: 3.125 mg Chlorhexidine Gluconate (Peridex 0.12% Oral Kit) 15 ml OROPHARYNG BID@0800, 2000 [facility] Last Admin: 05/23/18 08:17 Dose: 15 ml Clonidine HCl (Catapres) 0.1 mg PO UNSCH PRN PRN Reason: SEE LABEL COMMENTS Dextrose (D50w Vial) 50 ml IV.PUSH UNSCH PRN PRN Reason: PER HYPOGLYCEMIA PROTOCOL Last Admin: 05/22/18 04:33 Dose: 50 ml Diphenhydramine HCl (Benadryl) 25 mg PO UNSCH PRN PRN Reason: SEE LABEL COMMENTS Gelatin (Gelfoam 12 Mm/7 Mm Topical) 1 foam TOPICAL PRN PRN PRN Reason: help stop bleeding from site Gentamicin Sulfate (Gentamicin Inj) 20 mg OTHER WITH DIALYSIS PRN PRN Reason: Dwell Gentamycin Lock Last Admin: 05/21/18 12:24 Dose: 20 mg Glucagon (Glucagon Inj) 1 mg OTHER PRN PRN PRN Reason: for Hypoglycemia Protocol Heparin Sodium (Porcine) (Heparin Inj) 5,000 units SQ Q8HR [facility] Last Admin: 05/23/18 05:11 Dose: 5,000 units Heparin Sodium (Porcine) (Heparin Inj) 8,000 units OTHER WITH DIALYSIS PRN PRN Reason: for machine prime Heparin Sodium (Porcine) (Heparin Inj) 1,000 units OTHER WITH DIALYSIS PRN PRN Reason: Dwell Heparin to Fill Catheter Hydralazine HCl (Apresoline Inj) 10 mg IV.PUSH Q1H PRN PRN Reason: Sbp>140, Dbp>90 Last Admin: 05/10/18 08:00 Dose: 10 mg Albumin Human (Flexbumin 25% Inj) 100 mls @ 60 mls/hr IV.SIG Q12H [facility] Last Infusion: 05/23/18 07:13 Dose: Infused Fentanyl (Fentanyl 10 Mcg/Ml Premix Drip) 2,500 mcg in 250 mls @ 5 mls/hr IV.SIG TITRATE PRN; Protocol PRN Reason: Per Protocol Last Admin: 05/23/18 00:45 Dose: 200 mcg/hr, 20 mls/hr Propofol (Diprivan 1000 Mg/100 Ml Inj) 1,000 mg in 100 mls @ 2.547 mls/hr IV.CONT TITRATE PRN; Protocol PRN Reason: Per Protocol Last Admin: 05/23/18 07:11 Dose: 50 mcg/kg/min, 25.47 mls/hr Dexmedetomidine HCl 200 mcg/ (Sodium Chloride) 50 mls @ 4.24 mls/hr IV.CONT TITRATE PRN; Protocol PRN Reason: Per Protocol Piperacillin/Tazobactam/Dextrose (Zosyn 2.25 Gm Premix) 50 mls @ 100 mls/hr IV.SIG Q8H [facility] Last Infusion: 05/23/18 07:12 Dose: Infused Linezolid (Zyvox 600 Mg Premix) 300 mls @ 300 mls/hr IV.SIG Q12H [facility] Last Admin: 05/23/18 08:20 Dose: 300 mls/hr Sodium Chloride (Ns Inj) 1,000 mls @ 0 mls/hr OTHER .Q0M PRN PRN Reason: for prime and rinse back Sodium Chloride (Ns Inj) 1,000 mls @ 200 mls/hr OTHER .Q5H PRN PRN Reason: for dialyzer flush PRN Sodium Chloride (Ns Inj) 1,000 mls @ 0 mls/hr IV.CONT .Q0M PRN PRN Reason: hypotension / volume replace Albumin Human (Flexbumin 25% Inj) 100 mls @ 60 mls/hr IV.SIG WITH DIALYSIS PRN PRN Reason: hypotension / volume replace Insulin Aspart (Novolog Insulin Correctional Sugar Inj) 0 unit SQ Q4HR [facility]; Protocol Last Admin: 05/23/18 08:16 Dose: Not Given Insulin Detemir (Levemir Inj) 8 unit SQ BID [facility] Last Admin: 05/23/18 08:21 Dose: Not Given Labetalol HCl (Trandate Inj) 10 mg IV.PUSH Q1H PRN PRN Reason: Sbp>140, Dbp>90, Hr>65 Last Admin: 05/10/18 14:30 Dose: 10 mg Lactulose (Lactulose Liq) 30 ml PO DAILY PRN PRN Reason: SEVERE CONSITIPATION Lactulose (Lactulose Liq) 30 ml PO BID [facility] Last Admin: 05/23/18 08:18 Dose: 30 ml Lorazepam (Ativan Inj) 1 mg IV.PUSH Q1H PRN PRN Reason: SEE LABEL COMMENTS Mannitol (Mannitol Inj) 12.5 gm IV.PUSH UNSCH PRN PRN Reason: hypotension / volume replace Metoclopramide HCl (Reglan Inj) 5 mg IV.PUSH Q8H [facility]; Protocol Last Admin: 05/23/18 06:43 Dose: 5 mg Miscellaneous Medication () 1 each OROPHARYNG 0000,0400,1200,1600 [facility] Last Admin: 05/23/18 04:02 Dose: 1 each Morphine Sulfate (Morphine Inj) 2 mg IV.PUSH Q2H PRN PRN Reason: PAIN SCALE 6 TO 10 Last Admin: 05/16/18 21:28 Dose: 2 mg Mupirocin (Bactroban 2% Nasal Oint) 1 applicatio EACH NARE BID [facility] Last Admin: 05/23/18 08:18 Dose: 1 applicatio Nitroglycerin (Nitrostat Sl) 0.4 mg SL Q5M PRN PRN Reason: CHEST PAIN Ondansetron HCl (Zofran Inj) 4 mg IV.PUSH Q6H PRN PRN Reason: NAUSEA OR VOMITING Ondansetron HCl (Zofran Inj) 4 mg IV.PUSH UNSCH PRN PRN Reason: NAUSEA OR VOMITING Pantoprazole Sodium (Protonix Inj) 40 mg IV.PUSH Q24H [facility] Last Admin: 05/22/18 13:15 Dose: 40 mg Phenytoin Sodium (Dilantin) 300 mg PO HS [facility] Last Admin: 05/22/18 20:08 Dose: 300 mg Polyethylene Glycol (Miralax) 17 gm PO BID [facility] Last Admin: 05/23/18 08:18 Dose: 17 gm Senna/Docusate Sodium (Lizbeth-Colace) 1 tab PO BID [facility] Last Admin: 05/23/18 08:18 Dose: 1 tab Sennosides (Senokot) 17.2 mg PO Q12H PRN PRN Reason: Moderate Constipation Sodium Chloride (Ns Flush) 2 ml IV.FLUSH BID [facility] Last Admin: 05/23/18 08:19 Dose: 2 ml Sodium Chloride (Ns Flush) 2 ml IV.FLUSH PRN PRN PRN Reason: FLUSH AFTER USING IV ACCESS Sodium Chloride (Ns Flush) 0 ml IV.FLUSH DAILY [facility] Last Admin: 05/23/18 08:21 Dose: Not Given Sodium Chloride (Ns Flush) 5 ml IV.FLUSH PRN PRN PRN Reason: flush each lumen during HD Sodium Chloride (Ns Flush) 0 ml IV.FLUSH PRN PRN PRN Reason: FLUSH AFTER USING IV ACCESS Allergies/Adverse Reactions: Allergies Allergy/AdvReac Type Severity Reaction Status Date / Time No Known Allergies Allergy Uncoded 02/17/15 12:05 Review of Systems unobtainable due to endotracheal tube, unobtainable due to mental status Physical Exam Vital signs: Vital Signs 05/22/18 11:47 05/22/18 11:48 05/22/18 12:00 Temperature 99.6 F Pulse Rate 87 86 Respiratory Rate 14 14 18 Blood Pressure 108/56 L Pulse Oximetry 98 95 05/22/18 15:10 05/22/18 15:11 05/22/18 16:00 Temperature 99.5 F Pulse Rate 83 85 Respiratory Rate 12 12 15 Blood Pressure 101/55 L Pulse Oximetry 97 94 L 05/22/18 19:41 05/22/18 20:00 05/22/18 22:49 Temperature 98.8 F Pulse Rate 81 85 79 Respiratory Rate 13 13 11 L Blood Pressure 99/61 L Pulse Oximetry 97 91 L 05/22/18 23:45 05/23/18 00:00 05/23/18 03:12 Temperature 98.5 F Pulse Rate 80 79 Respiratory Rate 12 15 16 Blood Pressure 105/53 L Pulse Oximetry 95 96 05/23/18 03:52 05/23/18 04:00 05/23/18 07:48 Temperature 99.6 F Pulse Rate 86 76 Respiratory Rate 12 14 15 Blood Pressure 108/55 L Pulse Oximetry 95 94 L 98 Intake & Output 05/22/18 05/23/18 05/23/18 18:59 06:59 18:59 Intake Total 1100 / 1100 1070 / 1070 250 / 250 Output Total 800 / 800 600 / 600 Balance 300 / 300 470 / 470 250 / 250 Weight 78.9 kg Intake: IV 900 / 900 900 / 900 250 / 250 Diprivan 1000 mg/100 ml Inj 1, 200 / 200 300 / 300 100 / 100 000 mg In 100 ml @ 5 MCG/KG/MIN 2.547 mls/hr IV.CONT TITRATE PRN Rx#:[id number] Flexbumin 25% Inj 100 ML @ 60 100 / 100 100 / 100 mls/hr IV.SIG Q12H [facility] Rx#: [id number] Zyvox 600 mg Premix 300 ML @ 300 / 300 300 / 300 300 mls/hr IV.SIG Q12H [facility] Rx#: [id number] Zosyn 2.25 GM Premix 50 ML @ 50 / 50 50 / 50 50 / 50 100 mls/hr IV.SIG Q8H [facility] Rx#: [id number] fentaNYL 10 mcg/mL Premix Drip 250 / 250 250 / 250 2,500 mcg In 250 ml @ 50 MCG/HR 5 mls/hr IV.SIG TITRATE PRN Rx #:[id number] Tube Feeding 100 / 100 70 / 70 Water Bolus Amount 100 / 100 100 / 100 Output: Urine Amount (Catheter) 800 / 800 600 / 600 Indwelling Urethral Catheter 800 / 800 600 / 600 Other: Date of Last Bowel Movement 05/22/18 05/22/18 # Bowel Movements 2 # Incontinent Bowel Movements 1 2 Narrative: GENERAL: in NAD, SKIN: Warm and dry. HEAD: Atraumatic. Normocephalic. ENT: Intubated RESPIRATORY: Intubated GASTROINTESTINAL: Abdomen soft, non-tender, nondistended. MUSCULOSKELETAL: Extremities without clubbing, cyanosis, or edema. No obvious deformities. NEUROLOGICAL: Intubated. on propofol gtt, not following, grimaces, ou sluggishly reactive, ue limited flexion/extension, le some withdrawal PSYCHIATRIC: Intubated - Constitutional no acute distress - Routine HEENT Exam Head: Present: normocephalic - Urinary Catheter Management Indwelling Temp Sensing Catheter Cath placed during this visit: yes, but has since been removed by the nurse Reason for continuing: Not indwelling catheter Insertion date: 05/08/18 Insertion time: 22:40 Removal date: 05/19/18 Removal time: 12:00 Straight Cath placed during this visit: yes Reason for continuing: Not indwelling catheter Insertion date: 05/20/18 Insertion time: 00:00 Condom Cath placed during this visit: no Indwelling Urethral Catheter Cath placed during this visit: yes Reason for continuing: Hourly intake/output Insertion date: 05/20/18 Insertion time: 08:30 Objective Laboratory Results - last 24 hr 05/19/18 05/22/18 05/22/18 08:31 11:31 16:26 WBC RBC Hgb Hct MCV MCH MCHC RDW Plt Count MPV Neut % (Auto) Lymph % (Auto) Alexander % (Auto) Eos % (Auto) Baso % (Auto) Neut # (Auto) Lymph # (Auto) Alexander # (Auto) Eos # (Auto) Baso # (Auto) WBC Differential Differential Comment Sodium Potassium Chloride Carbon Dioxide Anion Gap BUN Creatinine Estimated GFR POC Glucose 162 H 122 H Random Glucose Calcium Phosphorus Magnesium Ammonia Lipase Free Phenytoin 2.1 H 05/22/18 05/23/18 05/23/18 19:26 00:14 04:06 WBC RBC Hgb Hct MCV MCH MCHC RDW Plt Count MPV Neut % (Auto) Lymph % (Auto) Alexander % (Auto) Eos % (Auto) Baso % (Auto) Neut # (Auto) Lymph # (Auto) Alexander # (Auto) Eos # (Auto) Baso # (Auto) WBC Differential Differential Comment Sodium Potassium Chloride Carbon Dioxide Anion Gap BUN Creatinine Estimated GFR POC Glucose 101 104 112 H Random Glucose Calcium Phosphorus Magnesium Ammonia Lipase Free Phenytoin 05/23/18 05/23/18 05/23/18 04:29 04:29 04:29 WBC 8.7 RBC 3.20 L Hgb 9.3 L Hct 28.0 L MCV 87.5 MCH 29.0 MCHC 33.1 RDW 15.2 Plt Count 404 MPV 9.1 Neut % (Auto) 74.7 H Lymph % (Auto) 10.4 Alexander % (Auto) 7.2 Eos % (Auto) 6.6 H Baso % (Auto) 1.1 Neut # (Auto) 6.5 Lymph # (Auto) 0.9 L Alexander # (Auto) 0.6 Eos # (Auto) 0.6 H Baso # (Auto) 0.1 WBC Differential . Differential Comment Auto diff final Sodium 142 Potassium 4.3 Chloride 106 Carbon Dioxide 26.5 Anion Gap 10 BUN 51 H Creatinine 4.62 H Estimated GFR 13 L POC Glucose Random Glucose 100 Calcium 9.4 D Phosphorus 6.6 H Magnesium 3.0 H Ammonia 43 H Lipase 112 Free Phenytoin 05/23/18 08:15 WBC RBC Hgb Hct MCV MCH MCHC RDW Plt Count MPV Neut % (Auto) Lymph % (Auto) Alexander % (Auto) Eos % (Auto) Baso % (Auto) Neut # (Auto) Lymph # (Auto) Alexander # (Auto) Eos # (Auto) Baso # (Auto) WBC Differential Differential Comment Sodium Potassium Chloride Carbon Dioxide Anion Gap BUN Creatinine Estimated GFR POC Glucose 108 Random Glucose Calcium Phosphorus Magnesium Ammonia Lipase Free Phenytoin Microbiology 05/19/18 08:21 Aerobic Blood Culture - Preliminary Blood - Peripheral No growth in 3 days Anaerobic Blood Culture - Preliminary No growth in 3 days 05/19/18 08:10 Aerobic Blood Culture - Preliminary Blood - Peripheral No growth in 3 days Anaerobic Blood Culture - Preliminary No growth in 3 days 05/20/18 11:45 Urine Culture - Final Catheterized Urine No growth in 48 hours Review/Management - Diagnosis (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 fib arrest underlying code cool post-anoxic MRI brain reviewed. No pontine hemorrhage. No diffusion restriction noted on DWI images. off keppra 2/2 ckd off phb last eeg 05/21-no sz Recommendation sedated. exam more limired eeg- no sz will d/c dilantin extubation per ccm follow exam
--- NOTE | 2018-05-23 09:39 | P.PNNP ---
Subjective Interval history: Patient is on CPAP/ventilator/hemodialysis seen during hemodialysis procedure Physical Exam Vital signs: Vital Signs 05/22/18 11:47 05/22/18 11:48 05/22/18 12:00 Temperature 99.6 F Pulse Rate 87 86 Respiratory Rate 14 14 18 Blood Pressure 108/56 L Pulse Oximetry 98 95 05/22/18 15:10 05/22/18 15:11 05/22/18 16:00 Temperature 99.5 F Pulse Rate 83 85 Respiratory Rate 12 12 15 Blood Pressure 101/55 L Pulse Oximetry 97 94 L 05/22/18 19:41 05/22/18 20:00 05/22/18 22:49 Temperature 98.8 F Pulse Rate 81 85 79 Respiratory Rate 13 13 11 L Blood Pressure 99/61 L Pulse Oximetry 97 91 L 05/22/18 23:45 05/23/18 00:00 05/23/18 03:12 Temperature 98.5 F Pulse Rate 80 79 Respiratory Rate 12 15 16 Blood Pressure 105/53 L Pulse Oximetry 95 96 05/23/18 03:52 05/23/18 04:00 05/23/18 07:48 Temperature 99.6 F Pulse Rate 86 76 Respiratory Rate 12 14 15 Blood Pressure 108/55 L Pulse Oximetry 95 94 L 98 Intake & Output 05/22/18 05/23/18 05/23/18 18:59 06:59 18:59 Intake Total 1100 / 1100 1070 / 1070 250 / 250 Output Total 800 / 800 600 / 600 Balance 300 / 300 470 / 470 250 / 250 Weight 78.9 kg Intake: IV 900 / 900 900 / 900 250 / 250 Diprivan 1000 mg/100 ml Inj 1, 200 / 200 300 / 300 100 / 100 000 mg In 100 ml @ 5 MCG/KG/MIN 2.547 mls/hr IV.CONT TITRATE PRN Rx#:[id number] Flexbumin 25% Inj 100 ML @ 60 100 / 100 100 / 100 mls/hr IV.SIG Q12H [facility] Rx#: [id number] Zyvox 600 mg Premix 300 ML @ 300 / 300 300 / 300 300 mls/hr IV.SIG Q12H [facility] Rx#: [id number] Zosyn 2.25 GM Premix 50 ML @ 50 / 50 50 / 50 50 / 50 100 mls/hr IV.SIG Q8H [facility] Rx#: [id number] fentaNYL 10 mcg/mL Premix Drip 250 / 250 250 / 250 2,500 mcg In 250 ml @ 50 MCG/HR 5 mls/hr IV.SIG TITRATE PRN Rx #:[id number] Tube Feeding 100 / 100 70 / 70 Water Bolus Amount 100 / 100 100 / 100 Output: Urine Amount (Catheter) 800 / 800 600 / 600 Indwelling Urethral Catheter 800 / 800 600 / 600 Other: Date of Last Bowel Movement 05/22/18 05/22/18 05/22/18 # Bowel Movements 2 # Incontinent Bowel Movements 1 2 Narrative: GENERAL: in NAD, SKIN: Warm and dry. HEAD: Atraumatic. Normocephalic. ENT: Intubated RESPIRATORY: Intubated CTA GASTROINTESTINAL: Abdomen soft, non-tender, nondistended. MUSCULOSKELETAL: Extremities without clubbing, cyanosis, or edema. No obvious deformities. NEUROLOGICAL: Intubated. on propofol gtt, not following, grimaces, PSYCHIATRIC: Intubated - Urinary Catheter Management Indwelling Temp Sensing Catheter Cath placed during this visit: yes, but has since been removed by the nurse Reason for continuing: Not indwelling catheter Insertion date: 05/08/18 Insertion time: 22:40 Removal date: 05/19/18 Removal time: 12:00 Straight Cath placed during this visit: yes Reason for continuing: Not indwelling catheter Insertion date: 05/20/18 Insertion time: 00:00 Condom Cath placed during this visit: no Indwelling Urethral Catheter Cath placed during this visit: yes Reason for continuing: Hourly intake/output Insertion date: 05/20/18 Insertion time: 08:30 Assessment and Plan - Assessment (1) Acute renal failure Code(s): N17.9 - Acute kidney failure, unspecified Status: Acute (2) Cardiac arrest Code(s): I46.9 - Cardiac arrest, cause unspecified Status: Acute (3) Seizure Code(s): R56.9 - Unspecified convulsions Status: Acute (4) Acute respiratory failure Code(s): J96.00 - Acute respiratory failure, unspecified whether with hypoxia or hypercapnia Status: Acute - Plan His condition deteriorated and has to be reintubated because of pulmonary edema however he has good urine output hemodialysis and Vas-Cath inserted on HD seen during hemodialysis tolerating it well ultrafiltrate of 2.5 L on 3K bath plan to extubate After dialysis Dialysis on MWF Monitor intake and output He has ATN related to vancomycin induced toxicity History of cardiac arrest Neuro: Neurological patient is sluggish will monitor
--- NOTE | 2018-05-23 10:35 | P.PNPAL ---
Reason for Visit Reason for visit: a. To assist with evaluation and management of symptoms including: Pain. b. To assist medical decision maker(s) with: better understanding of current medical conditions; weighing benefits/burdens of medical treatment options; making medical treatment decisions. Subjective Subjective/Interval History: Patient seen today to follow-up on comfort, goals of medical treatment with pt/ decision-maker. Medically extubated Saturday, Reported alert, and appropriate, following commands etc after extubation. Tolerated extubation well initially, +fluid overload, pulmonary edema, required re-intubation later. BUN and creatinine continue to trend up, + fluid overload, started Hemodialysis 05/20 (-3L) , resp status improving ; critical care planning for medical extubation once fluid status corrected.Possible extub today. CXR stable = bibasilar opacities likely representing pleural effusions with associated volume loss and/or airspace consolidation. H&H stable, WBC 8. BUN 51/ creatinine 4.62. TF held yesterday for increased residual, planned to resume today. BC from 05/19 NG x3 days. Urine culture neg. Pt seen in room as HD in process, HD nurse at bedside. He is sedated on fentanyl 250mcgs, diprivan 50mcgs/kg/min. Does not stir to exam , did not vigorously stimulate as hemodialysis in progress. Appears comfortable. Clear yellow urine noted. No family present, nurse informs expected around 1200 noon today, possible extubation following HD. Left number to be called when arrives so may update her. Discussed with critical care, RN. Family/Friend Interactions: later arrived, met w her at bedside., Treatments in place, current conditions and possible medical extubation. Review he still remains at risk for potential complication and setbacks though he has been very stable and condition in general improved from a week ago. Review that critical care hopeful for medical extubation today soon, review that renal function will be followed possible he may need additional dialysis treatment though would be ongoing evaluation by critical care, nephrology etc. Review potential trajectories post extubation he stable enough to tolerate, and given hospital course thus far very likely he may still require rehabilitation post hospitalization. asked questions about his overall longer-term quality of life is poor that we currently do not know how much of her recovery he will make given we are still intubated etc.but once he is extubated will see either progress or additional complications. Explore that hopefully patient can participate more in the coming days in terms of establishing goals and limits etc. once he is extubated. She has palliative contact information. Advance Directives Living Will: Never completed Health Care Surrogate: Never completed Durable Power of Bar Tacker: Never completed Objective Vital Signs: Vital Signs 05/22/18 11:47 05/22/18 11:48 05/22/18 12:00 Temperature 99.6 F Pulse Rate 87 86 Respiratory Rate 14 14 18 Blood Pressure 108/56 L Pulse Oximetry 98 95 05/22/18 15:10 05/22/18 15:11 05/22/18 16:00 Temperature 99.5 F Pulse Rate 83 85 Respiratory Rate 12 12 15 Blood Pressure 101/55 L Pulse Oximetry 97 94 L 05/22/18 19:41 05/22/18 20:00 05/22/18 22:49 Temperature 98.8 F Pulse Rate 81 85 79 Respiratory Rate 13 13 11 L Blood Pressure 99/61 L Pulse Oximetry 97 91 L 05/22/18 23:45 05/23/18 00:00 05/23/18 03:12 Temperature 98.5 F Pulse Rate 80 79 Respiratory Rate 12 15 16 Blood Pressure 105/53 L Pulse Oximetry 95 96 05/23/18 03:52 05/23/18 04:00 05/23/18 07:48 Temperature 99.6 F Pulse Rate 86 76 Respiratory Rate 12 14 15 Blood Pressure 108/55 L Pulse Oximetry 95 94 L 98 05/23/18 08:00 05/23/18 09:00 Temperature 99.0 F Pulse Rate 78 78 Respiratory Rate 16 Blood Pressure 99/55 L Pulse Oximetry 96 Intake & Output 05/22/18 05/23/18 05/23/18 18:59 06:59 18:59 Intake Total 1100 / 1100 1070 / 1070 800 / 800 Output Total 800 / 800 600 / 600 Balance 300 / 300 470 / 470 800 / 800 Weight 78.9 kg Intake: IV 900 / 900 900 / 900 800 / 800 Diprivan 1000 mg/100 ml Inj 1, 200 / 200 300 / 300 100 / 100 000 mg In 100 ml @ 5 MCG/KG/MIN 2.547 mls/hr IV.CONT TITRATE PRN Rx#:[id number] Flexbumin 25% Inj 100 ML @ 60 100 / 100 100 / 100 mls/hr IV.SIG Q12H [facility] Rx#: [id number] Zyvox 600 mg Premix 300 ML @ 300 / 300 300 / 300 300 / 300 300 mls/hr IV.SIG Q12H [facility] Rx#: [id number] Zosyn 2.25 GM Premix 50 ML @ 50 / 50 50 / 50 50 / 50 100 mls/hr IV.SIG Q8H [facility] Rx#: [id number] fentaNYL 10 mcg/mL Premix Drip 250 / 250 250 / 250 250 / 250 2,500 mcg In 250 ml @ 50 MCG/HR 5 mls/hr IV.SIG TITRATE PRN Rx #:[id number] Tube Feeding 100 / 100 70 / 70 Water Bolus Amount 100 / 100 100 / 100 Output: Urine Amount (Catheter) 800 / 800 600 / 600 Indwelling Urethral Catheter 800 / 800 600 / 600 Other: Date of Last Bowel Movement 05/22/18 05/22/18 05/22/18 # Bowel Movements 2 # Incontinent Bowel Movements 1 2 Physical Exam: CONSTITUTIONAL/GENERAL: This is an adequately nourished patient endotracheally intubated on mechanical ventilation. sedated TUBES/LINES/DRAINS: ETT, OG, vas cath, central line, Orellana catheter, bilateral SCDs, PIVS RUE, bilateral soft wrist restraints. SKIN: No jaundice, rashes, or lesions. No wounds seen anteriorly. Skin temperature appropriate. Not diaphoretic. EYES: Pupils equal and round and reactive. Extraocular motions intact. No scleral icterus. No injection or drainage. ENT: Nose without bleeding or purulent drainage. Moist oral mucosa. ETT, OG in place limiting oropharynx exam CARDIOVASCULAR: Regular rate and rhythm. Peripheral pulses symmetric. trace peripheral edema. RESPIRATORY/CHEST: Symmetric, unlabored respirations via ETT to mech vent, Clear to auscultation,diminsihed. Breath sounds equal bilaterally. GASTROINTESTINAL: Abdomen soft, non-tender, nondistended. OGT clamped. BS hypoactive. GENITOURINARY: Without palpable bladder distension. Orellana catheter in place clear yellow urine. MUSCULOSKELETAL: Extremities without clubbing, cyanosis,slight edema to extremities, traci hands. No mottling or clubbing. NEUROLOGICAL: sedated/lethargic. does not stir to exam. PSYCHIATRIC: calm /sedated no apparent distress Diagnostic Tests Laboratory: Laboratory Results - last 72 hr 05/19/18 05/20/18 05/20/18 08:31 11:01 11:45 WBC RBC Hgb Hct MCV MCH MCHC RDW Plt Count MPV Neut % (Auto) Lymph % (Auto) [place] % (Auto) Eos % (Auto) Baso % (Auto) Neut # (Auto) Lymph # (Auto) [place] # (Auto) Eos # (Auto) Baso # (Auto) WBC Differential Differential Comment Sodium Potassium Chloride Carbon Dioxide Anion Gap BUN Creatinine Estimated GFR POC Glucose 153 H Random Glucose Calcium Phosphorus Magnesium Total Bilirubin AST ALT Alkaline Phosphatase Ammonia Total Protein Albumin Lipase Urine Color Straw Urine Clarity Hazy H Urine pH 6.0 Ur Specific [place] 1.006 Urine Protein Negative Urine Glucose (UA) Negative Urine Ketones Negative Urine Occult Blood Small H Urine Nitrate Negative Urine Bilirubin Negative Urine Urobilinogen Less than 2 Ur Leukocyte Esterase Moderate H Urine RBC 2 Urine WBC 17 H Urine WBC Clumps Rare H Amorphous Sediment Occasional H Urine Bacteria Rare H Urine Mucus Few H Micro UA Comment Cath-culture ind Ur Microscopic Review Not Reportable Urine Culture Comments Cath-cult indicated Random Vancomycin Free Phenytoin 2.1 H Hepatitis A IgM Ab Hep Bs Antigen Hep B Core IgM Ab Hep C IgG Ab 05/20/18 05/20/18 05/20/18 16:07 21:07 23:40 WBC RBC Hgb Hct MCV MCH MCHC RDW Plt Count MPV Neut % (Auto) Lymph % (Auto) [place] % (Auto) Eos % (Auto) Baso % (Auto) Neut # (Auto) Lymph # (Auto) [place] # (Auto) Eos # (Auto) Baso # (Auto) WBC Differential Differential Comment Sodium Potassium Chloride Carbon Dioxide Anion Gap BUN Creatinine Estimated GFR POC Glucose 97 107 121 H Random Glucose Calcium Phosphorus Magnesium Total Bilirubin AST ALT Alkaline Phosphatase Ammonia Total Protein Albumin Lipase Urine Color Urine Clarity Urine pH Ur Specific [place] Urine Protein Urine Glucose (UA) Urine Ketones Urine Occult Blood Urine Nitrate Urine Bilirubin Urine Urobilinogen Ur Leukocyte Esterase Urine RBC Urine WBC Urine WBC Clumps Amorphous Sediment Urine Bacteria Urine Mucus Micro UA Comment Ur Microscopic Review Urine Culture Comments Random Vancomycin Free Phenytoin Hepatitis A IgM Ab Hep Bs Antigen Hep B Core IgM Ab Hep C IgG Ab 05/21/18 05/21/18 05/21/18 01:33 01:33 03:56 WBC 14.0 H RBC 3.86 L Hgb 10.9 L Hct 33.2 L MCV 86.1 MCH 28.3 MCHC 32.9 RDW 15.1 Plt Count 344 MPV 10.2 Neut % (Auto) 82.6 H Lymph % (Auto) 6.1 L [place] % (Auto) 6.1 Eos % (Auto) 4.5 H Baso % (Auto) 0.7 Neut # (Auto) 11.6 H Lymph # (Auto) 0.9 L [place] # (Auto) 0.9 Eos # (Auto) 0.6 H Baso # (Auto) 0.1 WBC Differential . Differential Comment Auto diff final Sodium 143 Potassium 4.0 Chloride 107 Carbon Dioxide 24.7 Anion Gap 11 BUN 60 H Creatinine 4.17 H Estimated GFR 14 L POC Glucose Random Glucose 122 H Calcium 7.9 L Phosphorus 5.5 H Magnesium 2.6 H Total Bilirubin 0.4 AST 13 L ALT 25 Alkaline Phosphatase 96 Ammonia Total Protein 5.1 L D Albumin 2.1 L Lipase Urine Color Urine Clarity Urine pH Ur Specific [place] Urine Protein Urine Glucose (UA) Urine Ketones Urine Occult Blood Urine Nitrate Urine Bilirubin Urine Urobilinogen Ur Leukocyte Esterase Urine RBC Urine WBC Urine WBC Clumps Amorphous Sediment Urine Bacteria Urine Mucus Micro UA Comment Ur Microscopic Review Urine Culture Comments Random Vancomycin 24.6 Free Phenytoin Hepatitis A IgM Ab Nonreactive Hep Bs Antigen Nonreactive Hep B Core IgM Ab Nonreactive Hep C IgG Ab Nonreactive 05/21/18 05/21/18 05/21/18 08:07 11:05 15:49 WBC RBC Hgb Hct MCV MCH MCHC RDW Plt Count MPV Neut % (Auto) Lymph % (Auto) [place] % (Auto) Eos % (Auto) Baso % (Auto) Neut # (Auto) Lymph # (Auto) [place] # (Auto) Eos # (Auto) Baso # (Auto) WBC Differential Differential Comment Sodium Potassium Chloride Carbon Dioxide Anion Gap BUN Creatinine Estimated GFR POC Glucose 118 H 117 H 110 Random Glucose Calcium Phosphorus Magnesium Total Bilirubin AST ALT Alkaline Phosphatase Ammonia Total Protein Albumin Lipase Urine Color Urine Clarity Urine pH Ur Specific [place] Urine Protein Urine Glucose (UA) Urine Ketones Urine Occult Blood Urine Nitrate Urine Bilirubin Urine Urobilinogen Ur Leukocyte Esterase Urine RBC Urine WBC Urine WBC Clumps Amorphous Sediment Urine Bacteria Urine Mucus Micro UA Comment Ur Microscopic Review Urine Culture Comments Random Vancomycin Free Phenytoin Hepatitis A IgM Ab Hep Bs Antigen Hep B Core IgM Ab Hep C IgG Ab 1105/21/18 05/22/18 19:41 23:23 02:48 WBC 8.8 RBC 3.40 L Hgb 9.7 L Hct 29.1 L MCV 85.4 MCH 28.3 MCHC 33.2 RDW 15.6 Plt Count 393 MPV 9.7 Neut % (Auto) 72.7 H Lymph % (Auto) 12.9 [place] % (Auto) 7.5 Eos % (Auto) 5.9 H Baso % (Auto) 1.0 Neut # (Auto) 6.4 Lymph # (Auto) 1.1 [place] # (Auto) 0.7 Eos # (Auto) 0.5 H Baso # (Auto) 0.1 WBC Differential . Differential Comment Auto diff final Sodium Potassium Chloride Carbon Dioxide Anion Gap BUN Creatinine Estimated GFR POC Glucose 89 107 Random Glucose Calcium Phosphorus Magnesium Total Bilirubin AST ALT Alkaline Phosphatase Ammonia Total Protein Albumin Lipase Urine Color Urine Clarity Urine pH Ur Specific [place] Urine Protein Urine Glucose (UA) Urine Ketones Urine Occult Blood Urine Nitrate Urine Bilirubin Urine Urobilinogen Ur Leukocyte Esterase Urine RBC Urine WBC Urine WBC Clumps Amorphous Sediment Urine Bacteria Urine Mucus Micro UA Comment Ur Microscopic Review Urine Culture Comments Random Vancomycin Free Phenytoin Hepatitis A IgM Ab Hep Bs Antigen Hep B Core IgM Ab Hep C IgG Ab 05/22/18 05/22/18 05/22/18 02:48 04:24 04:53 WBC RBC Hgb Hct MCV MCH MCHC RDW Plt Count MPV Neut % (Auto) Lymph % (Auto) [place] % (Auto) Eos % (Auto) Baso % (Auto) Neut # (Auto) Lymph # (Auto) [place] # (Auto) Eos # (Auto) Baso # (Auto) WBC Differential Differential Comment Sodium 143 Potassium 3.6 Chloride 104 Carbon Dioxide 27.4 Anion Gap 12 BUN 44 H Creatinine 3.71 H Estimated GFR 17 L POC Glucose 65 L 166 H Random Glucose 82 Calcium 8.5 Phosphorus 6.2 H Magnesium 2.8 H Total Bilirubin AST ALT Alkaline Phosphatase Ammonia Total Protein Albumin Lipase Urine Color Urine Clarity Urine pH Ur Specific [place] Urine Protein Urine Glucose (UA) Urine Ketones Urine Occult Blood Urine Nitrate Urine Bilirubin Urine Urobilinogen Ur Leukocyte Esterase Urine RBC Urine WBC Urine WBC Clumps Amorphous Sediment Urine Bacteria Urine Mucus Micro UA Comment Ur Microscopic Review Urine Culture Comments Random Vancomycin Free Phenytoin Hepatitis A IgM Ab Hep Bs Antigen Hep B Core IgM Ab Hep C IgG Ab 05/22/18 05/22/18 05/22/18 08:07 11:31 16:26 WBC RBC Hgb Hct MCV MCH MCHC RDW Plt Count MPV Neut % (Auto) Lymph % (Auto) [place] % (Auto) Eos % (Auto) Baso % (Auto) Neut # (Auto) Lymph # (Auto) [place] # (Auto) Eos # (Auto) Baso # (Auto) WBC Differential Differential Comment Sodium Potassium Chloride Carbon Dioxide Anion Gap BUN Creatinine Estimated GFR POC Glucose 104 162 H 122 H Random Glucose Calcium Phosphorus Magnesium Total Bilirubin AST ALT Alkaline Phosphatase Ammonia Total Protein Albumin Lipase Urine Color Urine Clarity Urine pH Ur Specific [place] Urine Protein Urine Glucose (UA) Urine Ketones Urine Occult Blood Urine Nitrate Urine Bilirubin Urine Urobilinogen Ur Leukocyte Esterase Urine RBC Urine WBC Urine WBC Clumps Amorphous Sediment Urine Bacteria Urine Mucus Micro UA Comment Ur Microscopic Review Urine Culture Comments Random Vancomycin Free Phenytoin Hepatitis A IgM Ab Hep Bs Antigen Hep B Core IgM Ab Hep C IgG Ab 05/22/18 05/23/18 05/23/18 19:26 00:14 04:06 WBC RBC Hgb Hct MCV MCH MCHC RDW Plt Count MPV Neut % (Auto) Lymph % (Auto) [place] % (Auto) Eos % (Auto) Baso % (Auto) Neut # (Auto) Lymph # (Auto) [place] # (Auto) Eos # (Auto) Baso # (Auto) WBC Differential Differential Comment Sodium Potassium Chloride Carbon Dioxide Anion Gap BUN Creatinine Estimated GFR POC Glucose 101 104 112 H Random Glucose Calcium Phosphorus Magnesium Total Bilirubin AST ALT Alkaline Phosphatase Ammonia Total Protein Albumin Lipase Urine Color Urine Clarity Urine pH Ur Specific [place] Urine Protein Urine Glucose (UA) Urine Ketones Urine Occult Blood Urine Nitrate Urine Bilirubin Urine Urobilinogen Ur Leukocyte Esterase Urine RBC Urine WBC Urine WBC Clumps Amorphous Sediment Urine Bacteria Urine Mucus Micro UA Comment Ur Microscopic Review Urine Culture Comments Random Vancomycin Free Phenytoin Hepatitis A IgM Ab Hep Bs Antigen Hep B Core IgM Ab Hep C IgG Ab 05/23/18 05/23/18 05/23/18 04:29 04:29 04:29 WBC 8.7 RBC 3.20 L Hgb 9.3 L Hct 28.0 L MCV 87.5 MCH 29.0 MCHC 33.1 RDW 15.2 Plt Count 404 MPV 9.1 Neut % (Auto) 74.7 H Lymph % (Auto) 10.4 [place] % (Auto) 7.2 Eos % (Auto) 6.6 H Baso % (Auto) 1.1 Neut # (Auto) 6.5 Lymph # (Auto) 0.9 L [place] # (Auto) 0.6 Eos # (Auto) 0.6 H Baso # (Auto) 0.1 WBC Differential . Differential Comment Auto diff final Sodium 142 Potassium 4.3 Chloride 106 Carbon Dioxide 26.5 Anion Gap 10 BUN 51 H Creatinine 4.62 H Estimated GFR 13 L POC Glucose Random Glucose 100 Calcium 9.4 D Phosphorus 6.6 H Magnesium 3.0 H Total Bilirubin AST ALT Alkaline Phosphatase Ammonia 43 H Total Protein Albumin Lipase 112 Urine Color Urine Clarity Urine pH Ur Specific [place] Urine Protein Urine Glucose (UA) Urine Ketones Urine Occult Blood Urine Nitrate Urine Bilirubin Urine Urobilinogen Ur Leukocyte Esterase Urine RBC Urine WBC Urine WBC Clumps Amorphous Sediment Urine Bacteria Urine Mucus Micro UA Comment Ur Microscopic Review Urine Culture Comments Random Vancomycin Free Phenytoin Hepatitis A IgM Ab Hep Bs Antigen Hep B Core IgM Ab Hep C IgG Ab 05/23/18 08:15 WBC RBC Hgb Hct MCV MCH MCHC RDW Plt Count MPV Neut % (Auto) Lymph % (Auto) [place] % (Auto) Eos % (Auto) Baso % (Auto) Neut # (Auto) Lymph # (Auto) [place] # (Auto) Eos # (Auto) Baso # (Auto) WBC Differential Differential Comment Sodium Potassium Chloride Carbon Dioxide Anion Gap BUN Creatinine Estimated GFR POC Glucose 108 Random Glucose Calcium Phosphorus Magnesium Total Bilirubin AST ALT Alkaline Phosphatase Ammonia Total Protein Albumin Lipase Urine Color Urine Clarity Urine pH Ur Specific [place] Urine Protein Urine Glucose (UA) Urine Ketones Urine Occult Blood Urine Nitrate Urine Bilirubin Urine Urobilinogen Ur Leukocyte Esterase Urine RBC Urine WBC Urine WBC Clumps Amorphous Sediment Urine Bacteria Urine Mucus Micro UA Comment Ur Microscopic Review Urine Culture Comments Random Vancomycin Free Phenytoin Hepatitis A IgM Ab Hep Bs Antigen Hep B Core IgM Ab Hep C IgG Ab Result Diagrams: 05/23/18 04:29 05/23/18 04:29 Microbiology: Microbiology 05/19/18 08:21 Aerobic Blood Culture - Preliminary Blood - Peripheral No growth in 3 days Anaerobic Blood Culture - Preliminary No growth in 3 days 05/19/18 08:10 Aerobic Blood Culture - Preliminary Blood - Peripheral No growth in 3 days Anaerobic Blood Culture - Preliminary No growth in 3 days 05/20/18 11:45 Urine Culture - Final Catheterized Urine No growth in 48 hours 05/19/18 11:55 Urine Culture - Final Catheterized Urine No growth in 48 hours 05/19/18 10:40 Gram Stain - Final Sputum - Endotracheal Sputum Culture - Final S. aureus MRSA Imaging: Impressions Chest X-Ray 05/22/18 06:00 CONCLUSION: Stable exam compared with May 21. Abdomen X-Ray 05/22/18 06:44 CONCLUSION: Nonspecific, benign intestinal gas pattern Chest X-Ray 05/23/18 06:00 CONCLUSION: Stable chest x-ray with bibasilar opacities likely representing pleural effusions with associated volume loss and/or airspace consolidation. Procedures: 05/08: Endotracheal intubation 05/12: Left IJ central line 05/09 medically extubated, later REintubated. Assessment and Plan - Disease Oriented Problem List (1) Acute respiratory failure (2) Hypoxic encephalopathy (3) Ischemic cardiomyopathy (4) Cardiac arrest - Symptom Scale (1) Pain 0-10 Scale: Unable to quantify (2) Agitation 0-10 Scale: Unable to quantify Pertinent Non-Medical Issues: Psychosocial: Patient originally from [place], moved to [place] 14 years ago. for the past 14 years. Has 1 biological son, Valente who is 42 y/o and resizing [place]. 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 No service. Spiritual: No quaker affiliation reported. Legal: No advanced directives completed. Ethical issues impacting care: No ethical issues have been identified. Important Contacts: Patient's Dyan . Prognosis: Mr. Siddiqui is a 63-year-old male with no significant past medical history who presented to ED status post V. fib/V. tach arrest. Clinical course complicated by persistent post anoxic seizures. Initially poor neurologic assessment concern for anoxic injury. Some improvement over the past few days now following commands and tolerating ventilator weaning. Plan for medical extubation, though continues to remain Patient at high risk for further complications, continued decline and . Code Status: Alternative Code (intub only) Plan: * CODE STATUS:ALT code. INTUBATION ONLY, no cardiac resuscitation * HEALTHCARE DECISION-MAKING: Patient unable to participate in medical decision making in the setting of anoxic brain. Not likely to regain medical decision making capacity. No advance directives completed. As per [place] statue in the absence of AD, healthcare proxy decision making falls to patient's Dyan Siddiqui. has accepted this role and is fully supported by patient's sister and son. * GOALS OF CARE: reports that patient has verbalized in many occasions that "if he was unable to return to his independent self (talking, walking, independent with ADL's, riding his motorcycle), any other alternative would NOT be an acceptable quality of life". * 05/23/18 goals at this point are semi-aggressive wishing to maximize current treatment options given his neurologic improvement. She is open to ongoing discussions as clinical course evolves. Possible patient neuro status may improve enough that he can participate as well. verbalizes that he absolutely would not want a tracheostomy or feeding tube. * SYMPTOMS: * =Pain: Secondary to multiple lines, intubation, bedrest. Fentanyl drip infusing currently appears comfortable. Morphine 2 mg IV every 2 hours available as needed. Will monitor for signs and symptoms of pain, comfort level going forward. today calm, no signs of distress. No further recommendations at this time. = Dyspnea: Has been on mechanical vent since initial cardiac arrest event. Some concern for anoxic brain injury. Neurologic improvement in the past few days , medical extubation 05/19 morning, later reintubated due to pulmonary edema/volume overload. planned for dialysis, critical care plans medical extubation once fluid status corrected, possible extubation today = Agitation/encephalopathy: Status post cardiac arrest, and developed seizure activity. Concern for anoxic brain injury. Patient with significant agitation requiring multiple sedatives while on the mechanical vent. medical extubation yesterday.later reintubated, today calm, on mech vent + diprivan, fentanyl. Slow improvement in neurological assessments following commands. Ongoing evaluations will be needed to continue to assess neurologic function and recovery. Neurology following. * Palliative care to continue to follow-up for further clarifications of goals of care, family support as patient's clinical course continues to evolve. Attestation Attestation: To help prompt me to consider important information that might be impacting today's encounter and assessment, information from prior notes written by myself or my colleagues may have been "brought forward" into today's note. My signature on this note, however, is an attestation that I personally performed the exam, history, and/or decision-making noted today, and, unless otherwise indicated, the interactions with patient, family, and staff as well as the review of records all occurred today. I also attest that the listed assessment and stated plan reflect my best clinical judgment today based on the combination of historical information, prior notes, and today's exam/ interactions. When time spent is documented, it refers only to time spent today by the signer, or if indicated, combined time spent today by collaborating physician/nurse practitioner.
[2018-05-23] MEDS: Pantoprazole Inj 40 MG Vial IV.PUSH SCH (12:45)
--- NOTE | 2018-05-23 13:22 | P.PNCC ---
Subjective Subjective Remarks/Hospital Course: 63-year-old male presents to emergency department intubated after VF/VT arrest. He had to be defibrillated twice in the field, afterwards clear STEMI criteria was called by [facility]. Apparently heard a collapse in the next room found the patient unresponsive called 9 1. Apparently total downtime was about 10 minutes and had a very quick Rask. Blood pressure was little low and dopamine drip was started in the field. Patient also had amiodarone started in the field. Initially the STEMI alert was called brain demonstrated punctate hyperdensity characteristic of hemorrhage in the right mid araseli in the STEMI alert was canceled. The patient has been admitted to ICU for hypothermia protocol treatment post cardiac arrest. 05/09: Discussed with at bedside. Currently on target temperature monitoring. EEG performed. Replacing potassium and phosphorus this a.m. 05/10: Currently temperature is a 97. Has been rewarmed from target temperature monitoring. EEG revealed no epileptic activity. Replace potassium currently. MRI brain revealed no signs of hemorrhage. Will start on heparin drip NC protocol 900 units an hour and provide aspirin. Carvedilol started by cardiology during the a.m. 05/11: Phosphorus being replaced. Weaning off sedation currently. Rewarmed to 37 C. No problem. Tolerating tube feeds currently at 30 cc now. 05/12: Currently resting in bed. New central has been placed and targeted temperature monitoring Quatro catheter has been removed. Seizures overnight. Currently on fosphenytoin and levetiracetam. Remains on midazolam drip. Updated at bedside. 05/13: Low-grade temperature during the night continues greater than 99.0., Noted blood cultures negative growth to date. Remains encephalopathic .EEG revealed continued epileptiform activity. Patient noted phenobarbital level this a.m. subtherapeutic at 3.1. Noted persistent leukocytosis, bilateral pulmonary opacities, sputum culture pending. Palliative care has been consulted. 05/14: Sedative discontinued early this a.m.. Noted spontaneous eye opening with neurologist Dr. Connor at the bedside, not following any commands. EEG revealed a few spikes, patient continues on anticonvulsant regimen and seizure precautions. Noted hypertension systolic blood pressure greater than 170 Vasotec reinitiated. discussed findings with Dr. Connor at bedside we will continue to monitor discontinue all sedatives and continually evaluate neurological status. Plan this afternoon to meet with patient's Mrs. Siddiqui and palliative care. 05/15: Off all sedation noted spontaneous movement but not following any commands with excessive yawning and grimacing noted. Patient placed back on propofol low-dose infusion. Palliative care conference with patient's reveal patient to be placed in a no CPR CODE STATUS at this time. Discussion with Dr. Connor, neurology yesterday we will continue to monitor and evaluate optimizing care and continued evaluation at this time. No change in respiratory requirements however chest x-ray noted bilateral pleural effusions IV infusions decreased patient now normotensive carvedilol reinitiated. 05/16: Afebrile. Per RN yesterday the patient followed commands with left upper extremity. Upon my evaluation paid patient noted to be off sedation spontaneous eye opening and tracking. Excessive yawning and grimacing also noted. Propofol has been discontinued Precedex to maintain ventilator synchrony if required. Patient continues on heparin infusion. Leukocytosis has been resolved. Review of EEG per neurology only a few sharp spikes phenobarbital has been discontinued. 05/17: Patient remains on Precedex infusion @ 1.2 mcg/kg/hr. Per report the patient was extremely agitated early this a.m.. Upon evaluation of the patient , he is responding to commands squeezing hands bilaterally, and also bilateral movement of lower extremities. Patient is nodding head to yes and no questions , and attempting to talk. 05/18: Afebrile. Remains on dexmedetomidine drip at 0.7 mg/kg/h. On low-dose propofol due to agitation. Arousable and does follow commands. Tolerating tube feeding. Currently normal sinus rhythm. 05/19: Creatinine currently 4.7. Arousable and quite agitated on the ventilator. Will attempt to wean off and hold tube feeds and attempt x-ray at 11 AM today. Noted elevated white blood count and persistent fevers. Pancultured today. 05/20: Dialysis catheter placed today right IJ. -3 L. Fevers or bleeding. Removed left IJ CVL. FiO2 down to 50% PEEP down to 10. Much improved respiratory status. Starting on tube feeding. 05/21: T-max 99.1. -3 L with hemodialysis yesterday and today. FiO2 much improved. Appears more comfortable on ventilator. Subjective: 05/22: Poor tube feed tolerance overnight t. Slightly hypoglycemic. Will restart today. Plan for hemodialysis again today and possible extubation in a.m. 05/23. 05/23: Dialysis with fluid removal today targeting 3.5 L removal. SBT with possible extubation after dialysis. Will also check chest x-ray post dialysis. Still making urine 1.4 L in the last 24 hours Objective Vital Signs / I&O: Vital Signs 05/22/18 15:10 05/22/18 15:11 05/22/18 16:00 Temperature 99.5 F Pulse Rate 83 85 Respiratory Rate 12 12 15 Blood Pressure 101/55 L Pulse Oximetry 97 94 L 05/22/18 19:41 05/22/18 20:00 05/22/18 22:49 Temperature 98.8 F Pulse Rate 81 85 79 Respiratory Rate 13 13 11 L Blood Pressure 99/61 L Pulse Oximetry 97 91 L 05/22/18 23:45 05/23/18 00:00 05/23/18 03:12 Temperature 98.5 F Pulse Rate 80 79 Respiratory Rate 12 15 16 Blood Pressure 105/53 L Pulse Oximetry 95 96 05/23/18 03:52 05/23/18 04:00 05/23/18 07:48 Temperature 99.6 F Pulse Rate 86 76 Respiratory Rate 12 14 15 Blood Pressure 108/55 L Pulse Oximetry 95 94 L 98 05/23/18 08:00 05/23/18 09:00 05/23/18 11:32 Temperature 99.0 F Pulse Rate 78 78 75 Respiratory Rate 16 12 Blood Pressure 99/55 L Pulse Oximetry 96 98 05/23/18 12:00 Temperature 98.5 F Pulse Rate 76 Respiratory Rate 12 Blood Pressure 123/60 Pulse Oximetry 96 Intake & Output 05/22/18 05/23/18 05/23/18 18:59 06:59 18:59 Intake Total 1100 / 1100 1070 / 1070 900 / 900 Output Total 800 / 800 600 / 600 Balance 300 / 300 470 / 470 900 / 900 Weight 78.9 kg Intake: IV 900 / 900 900 / 900 900 / 900 Diprivan 1000 mg/100 ml Inj 1, 200 / 200 300 / 300 200 / 200 000 mg In 100 ml @ 5 MCG/KG/MIN 2.547 mls/hr IV.CONT TITRATE PRN Rx#:[id number] Flexbumin 25% Inj 100 ML @ 60 100 / 100 100 / 100 mls/hr IV.SIG Q12H [facility] Rx#: [id number] Zyvox 600 mg Premix 300 ML @ 300 / 300 300 / 300 300 / 300 300 mls/hr IV.SIG Q12H [facility] Rx#: [id number] Zosyn 2.25 GM Premix 50 ML @ 50 / 50 50 / 50 50 / 50 100 mls/hr IV.SIG Q8H [facility] Rx#: [id number] fentaNYL 10 mcg/mL Premix Drip 250 / 250 250 / 250 250 / 250 2,500 mcg In 250 ml @ 50 MCG/HR 5 mls/hr IV.SIG TITRATE PRN Rx #:[id number] Tube Feeding 100 / 100 70 / 70 Water Bolus Amount 100 / 100 100 / 100 Output: Urine Amount (Catheter) 800 / 800 600 / 600 Indwelling Urethral Catheter 800 / 800 600 / 600 Other: Date of Last Bowel Movement 05/22/18 05/22/18 05/22/18 # Bowel Movements 2 # Incontinent Bowel Movements 1 2 Result Diagrams: 05/23/18 04:29 05/23/18 04:29 Objective Remarks: GENERAL: 63-year-old male currently orotracheally intubated SKIN: Warm and dry. No rash. HEAD: Atraumatic. Normocephalic. EYES: Pupils equal and round and minimally reactive bilaterally. No scleral icterus. No injection or drainage. ENT: No nasal bleeding or discharge. Mucous membranes pink and moist. NECK: Trachea midline. No JVD. Right IJ hemodialysis catheter is clean dry and intact. CARDIOVASCULAR: RRR S1, S2. No S4. RESPIRATORY: No accessory muscle use. Clear to auscultation. Breath sounds equal bilaterally. Tolerating CPAP GASTROINTESTINAL: Abdomen soft, non-tender, nondistended. Hepatic and splenic margins not palpable. Normal active bowel sounds MUSCULOSKELETAL: Extremities without clubbing,. Trace to 1+ bilateral lower extremity edema NEUROLOGICAL: GCS 10T. Alert and responsive to commands moves all 4 extremities x4. When sedation is held Assessment and Plan - Assessment and Plan Plan: Neuro/Psych: Rule out anoxic encephalopathy Original CT brain on admission revealed possible 3 mm mid right araseli hemorrhage. Hold propofol and fentanyl for weaning trial Daily sedation vacation, Goal of RASS -0 Neurology/Dr. Connor following EEG completed 05/09 with no epileptic activity. Repeat 05/12 with sharp activity. Currently on fosphenytoin 300 mg daily. Discontinued levetiracetam secondary to acute kidney injury 05/16 Dilantin level noted therapeutic. Recheck level in a.m. 05/20 MRI brain revealed left maxillary, bilateral ethmoid and sphenoid sinusitis. MRA brain revealed normal examination. Continue scheduled dosing lactulose 30 cc twice daily Trend ammonia level Responsive to commands CV Out of hospital cardiac arrest/V. 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 Haile. Will follow as needed. Awaiting return of renal function prior to heart catheterization. Possible LifeVest/ASD prior to discharge if neurological function continues. - Okay for carvedilol 3.125 mg twice daily, Aspirin 81 mg daily. Discontinued heparin drip. 05/12 Added enalapril 2.5 mg daily and atorvastatin 10 mg since MRI brain revealed no hemorrhage disContinued enalapril 2.5 mg daily in light of acute kidney injury Originally not candidate for cardiac catheterization due to pontine hemorrhage right mid araseli. This is been changed with MRI/A 2D echocardiogram revealed EF 30-35%. Ruptured chordae tendon possible involving mitral valve. Resp: Acute respiratory failurelikely aspiration with right lower lobe infiltrate and altered mental status PRVC ventilation Ventilator bundle Continue CPAP trial Head of bed at 30 degrees Albuterol/ipratropium aerosols every 4 hours with albuterol aerosols every 2 hours as needed dyspnea Chest x-ray revealed bilateral pulmonary opacities and small bilateral pleural effusions, slightly improved from 05/20 GI: Hyperammonia Vital 1.5 goal 60 cc output currently 60 cc an hour Pantoprazole for GI prophylaxis Docusate serum/senna 1 tablet twice daily for bowel regimen with lactulose 30 cc twice daily Follow-up on ammonia level in a.m. 05/23 Endo: Acute hyperglycemia Low TSH Sliding scale insulin with Accu-Cheks to maintain euglycemia. On insulin detemir 4 units twice daily TSH was 0.285. Normal free T4/total T3. Recheck 4-6-week HEME: Normocytic anemia Monitor CBC daily. Follow trends. No indication for transfusion of blood products at this time Renal Acute kidney injury Creatinine currently within normal limits Acute I's and O's, maintain Orellana monitor urine output Avoid nephrotoxic medications. Discontinue enalapril. Discontinued vancomycin. Continue furosemide. Discontinue levetiracetam. Negative urine eosinophils. Negative renal ultrasound for hydronephrosis. Received hemodialysis 05/20. 05/21, 05/23 ID: MRSA sputum positive 05/13 05/19 Monitor for signs and symptomatology infection Patient with aspiration. Discontinued vancomycin and piperacillin/tazobactam. Completed 7 days therapy. Currently on Linezolid and piperacillin l/tazobactam restarted 05/19. FEN: Hyperphosphatemia Hypermagnesemia Replace electrolytes as clinically indicated Discontinue IV fluid MSK: PT evaluate and treat Access -Left CVL day 8 removed 05/20. Right IJ hemodialysis catheter day placed 05/20. Prophylaxis - -GI pantoprazole - -DVT -SCD/heparin subcu Level 3 followup
--- NOTE | 2018-05-23 13:50 | XR ---
EXAM DATE: 05/23/2018 1:41 PM EST AGE/SEX: 63 years / Male INDICATIONS: Follow up pleural effusion. CLINICAL DATA: This is the patient's subsequent encounter. Patient reports that signs and symptoms h ave been present for 3 days and indicates a pain score of Nonresponsive. MEDICAL/SURGICAL HISTORY: . Myocardial infarction. None. COMPARISON: [facility] [place], CHEST 1V SINGLE AP, 05/23/2018. . FINDINGS: Stable ETT, NGT and right IJ catheter. Persistent hazy opacity in the right mid to lower lung zones a nd left mid lower lung zone. Cardiomediastinal contours are stable. Remainder of exam is unchanged. CONCLUSION: 1. Stable tubes and lines. 2. Stable moderate right and small left pleural effusions with associated airspace disease in the lo wer lobes. Electronically signed by: Holden Koch MD 05/23/2018 1:49 PM EST
[2018-05-23 14:02] LABS: ABG Base Excess 3.8 mmol/L (-2-2); ABG PCO2 39 mmHg (38-42); ABG PO2 73 mmHG (61-120)
--- NOTE | 2018-05-23 18:01 | PQ ---
Physician Query Response Document PATIENT: Tj Siddiqui : 1955 ADMIT DATE: 05/08/2018 9:18 PM DISCH DATE: RESPONDING PROVIDER #: SJOHN QUERY TEXT: Acuity Specificity Pulmonary edema is documented in the Medical Record. Please specify the acuity of this condition with terms such as: -- Acute -- Chronic -- Acute and chronic -- Acute on chronic -- Other (please specify in the medical record) The patient's Clinical Indicators include: Pulmonary edema acuity: " reintubated due to pulmonary edema/volume overload" . Other explanation of clinical findings. Unable to determine (no explanation for clinical findings Query created by: Angela Horn on 05/23/2018 2:56 PM RESPONSE TEXT: Patient had developed acute pulmonary edema Electronically signed by: Fernando Huitron MD 05/23/2018 5:58 PM
[2018-05-23] MEDS: Dexmedetomidine Inj 200 MCG in Sodium Chlor 0.9% Inj 48 ML IV.CONT PRN ×2 (20:43→23:07)
[2018-05-23] MEDS ORDERED: Haloperidol Inj 5 MG/ML Ampul IM ONE (20:49)
[2018-05-24] MEDS: Insulin NovoLOG Aspart Correctional Sugar Inj SQ SCH ×6 (00:37→20:16)
[2018-05-24] MEDS: Oral Hygiene Kit OROPHARYNG SCH ×4 (00:38→18:26)
[2018-05-24] MEDS: Dexmedetomidine Inj 200 MCG in Sodium Chlor 0.9% Inj 48 ML IV.CONT PRN ×2 (03:21→06:28)
[2018-05-24 04:04] LABS: Baso # (Auto) 0.1 th/mm3 (0.0-0.2); Eos # (Auto) 0.1 th/mm3 (0.0-0.4); Eos % (Auto) 1.5 % (0.0-4.0); Hematocrit 27.7 % (39.0-51.0); Hemoglobin 9.4 gm/dL (13.0-17.0); Lymph # (Auto) 0.7 th/mm3 (1.0-4.8); Lymph % (Auto) 7.4 % (9.0-44.0); Mean Corpuscular HGB Conc 33.8 % (32.0-36.0); Mean Corpuscular Hemoglobin 28.3 pg (27.0-34.0); Mean Corpuscular Volume 83.6 fL (80.0-100.0); Mean Platelet Volume 8.8 fL (7.0-11.0); Mono # (Auto) 0.7 th/mm3 (0.0-0.9); Mono % (Auto) 6.8 % (0.0-8.0); Neut # (Auto) 8.1 th/mm3 (1.8-7.7); Neut % (Auto) 83.3 % (16.0-70.0); Platelet Count 529 th/mm3 (150-450); Red Blood Count 3.31 mil/mm3 (4.50-5.90); Red Cell Distribution Width 14.7 % (11.6-17.2); White Blood Count 9.8 th/mm3 (4.0-11.0)
[2018-05-24 04:33] LABS: Calcium 8.8 mg/dL (8.5-10.1); Potassium 3.4 meq/L (3.5-5.1)
[2018-05-24] MEDS: Albumin Human 25% Inj 100 ML IV.SIG SCH ×2 (05:00→17:45)
[2018-05-24] MEDS: Piperacil/Tazo 2.25 GM Premix 50 ML IV.SIG SCH ×3 (05:00→20:14)
[2018-05-24] MEDS: Artificial Tears Opth Drops 15 ML Bottle EACH EYE SCH ×3 (05:00→20:13)
[2018-05-24] MEDS: Heparin - SQ 10,000 UNITS/ML Vial SQ SCH ×4 (06:27→22:03)
[2018-05-24] MEDS: Dexmedetomidine Inj 1,000 MCG in Sodium Chlor 0.9% Inj 240 ML IV.CONT PRN (07:58)
[2018-05-24] MEDS: Chlorhexidine 0.12% Oral Kit 15 ML UDC OROPHARYNG SCH ×2 (08:58→19:30)
--- NOTE | 2018-05-24 10:03 | P.PNNP ---
Subjective Interval history: Patient is sleepy, not responding, not in distress. Physical Exam Vital signs: Vital Signs 05/23/18 10:00 05/23/18 10:15 05/23/18 10:30 Temperature Pulse Rate 82 77 79 Respiratory Rate Blood Pressure 122/63 105/57 L 110/56 L Pulse Oximetry 92 L 95 95 05/23/18 10:45 05/23/18 11:00 05/23/18 11:15 Temperature Pulse Rate 78 80 74 Respiratory Rate Blood Pressure 101/55 L 110/66 108/58 L Pulse Oximetry 96 94 L 95 05/23/18 11:30 05/23/18 11:32 05/23/18 11:45 Temperature Pulse Rate 74 75 74 Respiratory Rate 12 Blood Pressure 109/62 104/55 L Pulse Oximetry 96 98 96 05/23/18 12:00 05/23/18 12:15 05/23/18 12:30 Temperature 98.5 F Pulse Rate 76 76 77 Respiratory Rate 12 Blood Pressure 123/60 111/62 124/63 Pulse Oximetry 96 96 96 05/23/18 12:45 05/23/18 13:00 05/23/18 14:00 Temperature Pulse Rate 79 79 90 Respiratory Rate Blood Pressure 116/56 L 114/57 L 131/68 Pulse Oximetry 96 95 91 L 05/23/18 14:36 05/23/18 15:00 05/23/18 15:17 Temperature Pulse Rate 84 Respiratory Rate 20 Blood Pressure 128/68 Pulse Oximetry 95 93 L 05/23/18 16:00 05/23/18 16:10 05/23/18 17:00 Temperature 100.0 F H Pulse Rate 93 H 91 H 92 H Respiratory Rate 12 Blood Pressure 162/65 H 162/65 H 140/63 Pulse Oximetry 82 L 92 L 94 L 05/23/18 18:00 05/23/18 19:00 05/23/18 19:35 Temperature Pulse Rate 97 H 95 H 98 H Respiratory Rate 22 Blood Pressure 129/65 137/66 Pulse Oximetry 92 L 91 L 93 L 05/23/18 20:00 05/23/18 20:45 05/23/18 21:00 Temperature Pulse Rate 97 H 95 H Respiratory Rate Blood Pressure 121/59 L 132/64 Pulse Oximetry 96 96 05/23/18 21:35 05/23/18 22:00 05/23/18 23:00 Temperature Pulse Rate 89 80 Respiratory Rate Blood Pressure 141/66 H 114/61 Pulse Oximetry 95 96 95 05/23/18 23:25 05/24/18 00:00 05/24/18 00:01 Temperature Pulse Rate 82 80 81 Respiratory Rate 24 Blood Pressure 130/63 Pulse Oximetry 97 97 05/24/18 01:00 05/24/18 02:00 05/24/18 03:00 Temperature Pulse Rate 77 74 74 Respiratory Rate Blood Pressure 130/68 126/68 127/68 Pulse Oximetry 92 L 90 L 89 L 05/24/18 04:00 05/24/18 05:00 05/24/18 06:00 Temperature Pulse Rate 72 69 69 Respiratory Rate Blood Pressure 131/70 128/63 142/74 H Pulse Oximetry 89 L 91 L 93 L 05/24/18 08:21 Temperature Pulse Rate 65 Respiratory Rate 16 Blood Pressure Pulse Oximetry 93 L Intake & Output 05/23/18 05/24/18 05/24/18 18:59 06:59 18:59 Intake Total 1223 / 1223 750 / 750 Output Total 4025 / 4025 600 / 600 Balance -2802 / -2802 150 / 150 Weight 74.5 kg Intake: IV 1223 / 1223 750 / 750 Precedex Inj 200 MCG In NS Inj 150 / 150 48 ML @ 0.2 MCG/KG/HR 4.24 mls/ hr IV.CONT TITRATE PRN Rx#: [id number] Diprivan 1000 mg/100 ml Inj 1, 275 / 275 000 mg In 100 ml @ 5 MCG/KG/MIN 2.547 mls/hr IV.CONT TITRATE PRN Rx#:[id number] Ofirmev Inj 1,000 mg In 100 ml 100 / 100 @ 400 mls/hr IV.SIG Q8H [facility] Rx# :[id number] Flexbumin 25% Inj 100 ML @ 60 200 / 200 100 / 100 mls/hr IV.SIG Q12H [facility] Rx#: [id number] Zyvox 600 mg Premix 300 ML @ 300 / 300 300 / 300 300 mls/hr IV.SIG Q12H [facility] Rx#: [id number] Zosyn 2.25 GM Premix 50 ML @ 100 / 100 100 / 100 100 mls/hr IV.SIG Q8H [facility] Rx#: [id number] fentaNYL 10 mcg/mL Premix Drip 348 / 348 2,500 mcg In 250 ml @ 50 MCG/HR 5 mls/hr IV.SIG TITRATE PRN Rx #:[id number] Output: Hemodialysis Amount 3500 / 3500 Urine Amount (Catheter) 525 / 525 600 / 600 Indwelling Urethral Catheter 525 / 525 600 / 600 Other: Date of Last Bowel Movement 05/23/18 05/23/18 05/23/18 # Incontinent Bowel Movements 5 Narrative: GENERAL: sleepy, not in distress. SKIN: Warm and dry. HEAD: Atraumatic. Normocephalic. ENT: Intubated RESPIRATORY: Intubated CTA GASTROINTESTINAL: Abdomen soft, non-tender, nondistended. MUSCULOSKELETAL: Extremities without clubbing, cyanosis, or edema. No obvious deformities. NEUROLOGICAL: Sleepy not following, grimaces, - Urinary Catheter Management Indwelling Temp Sensing Catheter Cath placed during this visit: yes, but has since been removed by the nurse Reason for continuing: Not indwelling catheter Insertion date: 05/08/18 Insertion time: 22:40 Removal date: 05/19/18 Removal time: 12:00 Straight Cath placed during this visit: yes Reason for continuing: Not indwelling catheter Insertion date: 05/20/18 Insertion time: 00:00 Condom Cath placed during this visit: no Indwelling Urethral Catheter Cath placed during this visit: yes Reason for continuing: Hourly intake/output Insertion date: 05/20/18 Insertion time: 08:30 Assessment and Plan - Assessment (1) Acute renal failure Code(s): N17.9 - Acute kidney failure, unspecified Status: Acute (2) Cardiac arrest Code(s): I46.9 - Cardiac arrest, cause unspecified Status: Acute (3) Seizure Code(s): R56.9 - Unspecified convulsions Status: Acute (4) Acute respiratory failure Code(s): J96.00 - Acute respiratory failure, unspecified whether with hypoxia or hypercapnia Status: Acute - Plan Patient was reintubated because of pulmonary edema however he has good urine output, Now extubated, hemodialysis and Vas-Cath inserted and HD started. Last HD was yesterday. Dialysis on MWF Monitor intake and output He has ATN related to vancomycin induced toxicity History of cardiac arrest Neuro: Neurological patient is sluggish will monitor. Continue HD as needed. Watch for renal recovery. Continue antibiotics.
[2018-05-24] MEDS: Amiodarone 200 MG Tablet PO SCH (11:01)
[2018-05-24] MEDS: Mupirocin 2% Nasal Oint Topical Syringe EACH NARE SCH ×2 (11:01→20:16)
[2018-05-24] MEDS: Polyethylene Glycol 3350 17 GM Packet PO SCH ×2 (11:02→22:02)
[2018-05-24] MEDS: Insulin Detemir Inj 1,000 UNIT/10 ML Vial SQ SCH ×2 (11:02→22:01)
[2018-05-24] MEDS: Senna/Docusate Sodium 8.6/50 MG Tablet PO SCH ×2 (11:03→20:17)
[2018-05-24] MEDS: Pantoprazole Inj 40 MG Vial IV.PUSH SCH (12:25)
--- NOTE | 2018-05-24 13:12 | P.PNCC ---
Subjective Subjective Remarks/Hospital Course: 63-year-old male presents to emergency department intubated after VF/VT arrest. He had to be defibrillated twice in the field, afterwards clear STEMI criteria was called by [facility]. Apparently heard a collapse in the next room found the patient unresponsive called 9 1. Apparently total downtime was about 10 minutes and had a very quick Rask. Blood pressure was little low and dopamine drip was started in the field. Patient also had amiodarone started in the field. Initially the STEMI alert was called brain demonstrated punctate hyperdensity characteristic of hemorrhage in the right mid araseli in the STEMI alert was canceled. The patient has been admitted to ICU for hypothermia protocol treatment post cardiac arrest. 05/09: Discussed with at bedside. Currently on target temperature monitoring. EEG performed. Replacing potassium and phosphorus this a.m. 05/10: Currently temperature is a 97. Has been rewarmed from target temperature monitoring. EEG revealed no epileptic activity. Replace potassium currently. MRI brain revealed no signs of hemorrhage. Will start on heparin drip [place] protocol 900 units an hour and provide aspirin. Carvedilol started by cardiology during the a.m. 05/11: Phosphorus being replaced. Weaning off sedation currently. Rewarmed to 37 C. No problem. Tolerating tube feeds currently at 30 cc now. 05/12: Currently resting in bed. New central has been placed and targeted temperature monitoring Quatro catheter has been removed. Seizures overnight. Currently on fosphenytoin and levetiracetam. Remains on midazolam drip. Updated at bedside. 05/13: Low-grade temperature during the night continues greater than 99.0., Noted blood cultures negative growth to date. Remains encephalopathic .EEG revealed continued epileptiform activity. Patient noted phenobarbital level this a.m. subtherapeutic at 3.1. Noted persistent leukocytosis, bilateral pulmonary opacities, sputum culture pending. Palliative care has been consulted. 05/14: Sedative discontinued early this a.m.. Noted spontaneous eye opening with neurologist Dr. Connor at the bedside, not following any commands. EEG revealed a few spikes, patient continues on anticonvulsant regimen and seizure precautions. Noted hypertension systolic blood pressure greater than 170 Vasotec reinitiated. discussed findings with Dr. Connor at bedside we will continue to monitor discontinue all sedatives and continually evaluate neurological status. Plan this afternoon to meet with patient's Mrs. Siddiqui and palliative care. 05/15: Off all sedation noted spontaneous movement but not following any commands with excessive yawning and grimacing noted. Patient placed back on propofol low-dose infusion. Palliative care conference with patient's reveal patient to be placed in a no CPR CODE STATUS at this time. Discussion with Dr. Connor, neurology yesterday we will continue to monitor and evaluate optimizing care and continued evaluation at this time. No change in respiratory requirements however chest x-ray noted bilateral pleural effusions IV infusions decreased patient now normotensive carvedilol reinitiated. 05/16: Afebrile. Per RN yesterday the patient followed commands with left upper extremity. Upon my evaluation paid patient noted to be off sedation spontaneous eye opening and tracking. Excessive yawning and grimacing also noted. Propofol has been discontinued Precedex to maintain ventilator synchrony if required. Patient continues on heparin infusion. Leukocytosis has been resolved. Review of EEG per neurology only a few sharp spikes phenobarbital has been discontinued. 05/17: Patient remains on Precedex infusion @ 1.2 mcg/kg/hr. Per report the patient was extremely agitated early this a.m.. Upon evaluation of the patient , he is responding to commands squeezing hands bilaterally, and also bilateral movement of lower extremities. Patient is nodding head to yes and no questions , and attempting to talk. 05/18: Afebrile. Remains on dexmedetomidine drip at 0.7 mg/kg/h. On low-dose propofol due to agitation. Arousable and does follow commands. Tolerating tube feeding. Currently normal sinus rhythm. 05/19: Creatinine currently 4.7. Arousable and quite agitated on the ventilator. Will attempt to wean off and hold tube feeds and attempt x-ray at 11 AM today. Noted elevated white blood count and persistent fevers. Pancultured today. 05/20: Dialysis catheter placed today right IJ. -3 L. Fevers or bleeding. Removed left IJ CVL. FiO2 down to 50% PEEP down to 10. Much improved respiratory status. Starting on tube feeding. 05/21: T-max 99.1. -3 L with hemodialysis yesterday and today. FiO2 much improved. Appears more comfortable on ventilator. Subjective: 05/22: Poor tube feed tolerance overnight t. Slightly hypoglycemic. Will restart today. Plan for hemodialysis again today and possible extubation in a.m. 05/23. 05/23: Dialysis with fluid removal today targeting 3.5 L removal. SBT with possible extubation after dialysis. Will also check chest x-ray post dialysis. Still making urine 1.4 L in the last 24 hours 05/24: Extubated yesterday after hemodialysis tolerating well respiratory coe. Overnight very agitated started on Precedex. Currently somnolent on Precedex will start weaning. UO 1.1L in 24 hours Objective Vital Signs / I&O: Vital Signs 05/23/18 14:00 05/23/18 14:36 05/23/18 15:00 Temperature Pulse Rate 90 Respiratory Rate Blood Pressure 131/68 128/68 Pulse Oximetry 91 L 95 93 L 05/23/18 15:17 05/23/18 16:00 05/23/18 16:10 Temperature 100.0 F H Pulse Rate 84 93 H 91 H Respiratory Rate 20 12 Blood Pressure 162/65 H 162/65 H Pulse Oximetry 82 L 92 L 05/23/18 17:00 05/23/18 18:00 05/23/18 19:00 Temperature Pulse Rate 92 H 97 H 95 H Respiratory Rate Blood Pressure 140/63 129/65 137/66 Pulse Oximetry 94 L 92 L 91 L 05/23/18 19:35 05/23/18 20:00 05/23/18 20:45 Temperature Pulse Rate 98 H 97 H Respiratory Rate 22 Blood Pressure 121/59 L Pulse Oximetry 93 L 96 05/23/18 21:00 05/23/18 21:35 05/23/18 22:00 Temperature Pulse Rate 95 H 89 Respiratory Rate Blood Pressure 132/64 141/66 H Pulse Oximetry 96 95 96 05/23/18 23:00 05/23/18 23:25 05/24/18 00:00 Temperature Pulse Rate 80 82 80 Respiratory Rate 24 Blood Pressure 114/61 Pulse Oximetry 95 97 05/24/18 00:01 05/24/18 01:00 05/24/18 02:00 Temperature Pulse Rate 81 77 74 Respiratory Rate Blood Pressure 130/63 130/68 126/68 Pulse Oximetry 97 92 L 90 L 05/24/18 03:00 05/24/18 04:00 05/24/18 05:00 Temperature Pulse Rate 74 72 69 Respiratory Rate Blood Pressure 127/68 131/70 128/63 Pulse Oximetry 89 L 89 L 91 L 05/24/18 06:00 05/24/18 07:00 05/24/18 08:00 Temperature 97.7 F Pulse Rate 69 66 66 Respiratory Rate 18 Blood Pressure 142/74 H 139/68 148/71 H Pulse Oximetry 93 L 96 93 L 05/24/18 08:21 05/24/18 09:00 05/24/18 10:00 Temperature Pulse Rate 65 74 72 Respiratory Rate 16 Blood Pressure 146/69 H 145/69 H Pulse Oximetry 93 L 95 92 L 05/24/18 11:00 05/24/18 11:39 05/24/18 12:00 Temperature 97.6 F Pulse Rate 71 71 69 Respiratory Rate 22 22 Blood Pressure 139/69 130/62 Pulse Oximetry 90 L 96 Intake & Output 05/23/18 05/24/18 05/24/18 18:59 06:59 18:59 Intake Total 1223 / 1223 750 / 750 50 / 50 Output Total 4025 / 4025 600 / 600 Balance -2802 / -2802 150 / 150 50 / 50 Weight 74.5 kg Intake: IV 1223 / 1223 750 / 750 50 / 50 Precedex Inj 200 MCG In NS Inj 150 / 150 50 / 50 48 ML @ 0.2 MCG/KG/HR 4.24 mls/ hr IV.CONT TITRATE PRN Rx#: [id number] Diprivan 1000 mg/100 ml Inj 1, 275 / 275 000 mg In 100 ml @ 5 MCG/KG/MIN 2.547 mls/hr IV.CONT TITRATE PRN Rx#:[id number] Ofirmev Inj 1,000 mg In 100 ml 100 / 100 @ 400 mls/hr IV.SIG Q8H PRN Rx# :[id number] Flexbumin 25% Inj 100 ML @ 60 200 / 200 100 / 100 mls/hr IV.SIG Q12H JIM Rx#: [id number] Zyvox 600 mg Premix 300 ML @ 300 / 300 300 / 300 300 mls/hr IV.SIG Q12H JIM Rx#: [id number] Zosyn 2.25 GM Premix 50 ML @ 100 / 100 100 / 100 100 mls/hr IV.SIG Q8H JIM Rx#: [id number] fentaNYL 10 mcg/mL Premix Drip 348 / 348 2,500 mcg In 250 ml @ 50 MCG/HR 5 mls/hr IV.SIG TITRATE PRN Rx #:[id number] Output: Hemodialysis Amount 3500 / 3500 Urine Amount (Catheter) 525 / 525 600 / 600 Indwelling Urethral Catheter 525 / 525 600 / 600 Other: Date of Last Bowel Movement 05/23/18 05/23/18 05/23/18 # Incontinent Bowel Movements 5 Result Diagrams: 05/24/18 03:45 05/24/18 03:45 Objective Remarks: GENERAL: 63-year-old male currently somnolent on Precedex SKIN: Warm and dry. No rash. HEAD: Atraumatic. Normocephalic. EYES: Pupils equal and round and minimally reactive bilaterally. No scleral icterus. No injection or drainage. ENT: No nasal bleeding or discharge. Mucous membranes pink and moist. NECK: Trachea midline. No JVD. Right IJ hemodialysis catheter is clean dry and intact. CARDIOVASCULAR: RRR S1, S2. No S4. RESPIRATORY: No accessory muscle use. Clear to auscultation. Breath sounds equal bilaterally. GASTROINTESTINAL: Abdomen soft, non-tender, nondistended. Hepatic and splenic margins not palpable. Normal active bowel sounds MUSCULOSKELETAL: Extremities without clubbing,. Trace to 1+ bilateral lower extremity edema NEUROLOGICAL: Patient is on high dose of Precedex somnolent. Opens eyes to sternal rub moves extremities to stimulation Assessment and Plan - Assessment and Plan Plan: Neuro/Psych: Possible mild anoxic brain injury Agitated delirium Original CT brain on admission revealed possible 3 mm mid right araseli hemorrhage. MRI brain revealed left maxillary, bilateral ethmoid and sphenoid sinusitis. MRA brain normal Currently on Precedex for agitation, will wean to DC. Use Ativan as needed for agitation Neurology/Dr. Connor following EEG completed 05/09 with no epileptic activity. Repeat 05/12 with sharp activity. Currently on fosphenytoin 300 mg daily. Discontinued levetiracetam secondary to acute kidney injury 05/16 Dilantin level noted therapeutic. Responsive to commands CV Out of hospital cardiac arrest/V. 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 Haile. Will follow as needed. Awaiting return of renal function prior to heart catheterization. Possible LifeVest/ASD prior to discharge if neurological function continues to improve - Okay for carvedilol 3.125 mg twice daily, Aspirin 81 mg daily. Discontinued heparin drip. 05/12 Added enalapril 2.5 mg daily and atorvastatin 10 mg since MRI brain revealed no hemorrhage discontinued enalapril 2.5 mg daily in light of acute kidney injury Originally not candidate for cardiac catheterization due to pontine hemorrhage right mid araseli. This is been changed with MRI/A 2D echocardiogram revealed EF 30-35%. Ruptured chordae tendon possible involving mitral valve. Resp: Acute respiratory failurelikely aspiration with right lower lobe infiltrate and altered mental status Extubated yesterday tolerating well Head of bed at 30 degrees Albuterol/ipratropium aerosols every 4 hours with albuterol aerosols every 2 hours as needed dyspnea Chest x-ray revealed bilateral pulmonary opacities and small bilateral pleural effusions, slightly improved from 05/20 GI: Hyperammonia Initiate diet as tolerated Pantoprazole for GI prophylaxis Docusate serum/senna 1 tablet twice daily for bowel regimen with lactulose 30 cc twice daily Follow-up on ammonia level in a.m. 05/23 43 Endo: Acute hyperglycemia Low TSH Sliding scale insulin with Accu-Cheks to maintain euglycemia. On insulin detemir 4 units twice daily TSH was 0.285. Normal free T4/total T3. Recheck 4-6-week HEME: Normocytic anemia Monitor CBC daily. Follow trends. No indication for transfusion of blood products at this time Renal Acute kidney failure Creatinine currently within normal limits Acute I's and O's, maintain Orellana monitor urine output Avoid nephrotoxic medications. Discontinue enalapril. Discontinued vancomycin. Continue furosemide. Discontinue levetiracetam. Negative urine eosinophils. Negative renal ultrasound for hydronephrosis. Received hemodialysis 05/20. 05/21, 05/23 ID: MRSA sputum positive 05/13 05/19 Monitor for signs and symptomatology infection Patient with aspiration. Discontinued vancomycin and piperacillin/tazobactam. Completed 7 days therapy. Currently on Linezolid and piperacillin l/tazobactam restarted 05/19. FEN: Hyperphosphatemia Hypermagnesemia Replace electrolytes as clinically indicated MSK: PT evaluate and treat Access -Left CVL day 8 removed 05/20. Right IJ hemodialysis catheter day placed 05/20. Prophylaxis - -GI pantoprazole - -DVT -SCD/heparin subcu Level 3 followup
[2018-05-24] MEDS: Morphine Sulfate Inj 2 MG/ML Vial IV.PUSH PRN ×2 (18:26→19:59)
[2018-05-25] MEDS: Oral Hygiene Kit OROPHARYNG SCH ×2 (00:05→03:45)
[2018-05-25] MEDS: Insulin NovoLOG Aspart Correctional Sugar Inj SQ SCH ×3 (00:05→10:02)
[2018-05-25] MEDS: Dexmedetomidine Inj 1,000 MCG in Sodium Chlor 0.9% Inj 240 ML IV.CONT PRN (04:04)
[2018-05-25] MEDS: Piperacil/Tazo 2.25 GM Premix 50 ML IV.SIG SCH (04:55)
[2018-05-25] MEDS: Artificial Tears Opth Drops 15 ML Bottle EACH EYE SCH (04:56)
[2018-05-25] MEDS: Albumin Human 25% Inj 100 ML IV.SIG SCH (04:56)
[2018-05-25] MEDS: Heparin - SQ 10,000 UNITS/ML Vial SQ SCH (05:02)
--- NOTE | 2018-05-25 07:17 | P.PNCC ---
Subjective Subjective Remarks/Hospital Course: 63-year-old male presents to emergency department intubated after VF/VT arrest. He had to be defibrillated twice in the field, afterwards clear STEMI criteria was called by [facility]. Apparently heard a collapse in the next room found the patient unresponsive called 9 1. Apparently total downtime was about 10 minutes and had a very quick Rask. Blood pressure was little low and dopamine drip was started in the field. Patient also had amiodarone started in the field. Initially the STEMI alert was called brain demonstrated punctate hyperdensity characteristic of hemorrhage in the right mid araseli in the STEMI alert was canceled. The patient has been admitted to ICU for hypothermia protocol treatment post cardiac arrest. 05/09: Discussed with at bedside. Currently on target temperature monitoring. EEG performed. Replacing potassium and phosphorus this a.m. 05/10: Currently temperature is a 97. Has been rewarmed from target temperature monitoring. EEG revealed no epileptic activity. Replace potassium currently. MRI brain revealed no signs of hemorrhage. Will start on heparin drip [place] protocol 900 units an hour and provide aspirin. Carvedilol started by cardiology during the a.m. 05/11: Phosphorus being replaced. Weaning off sedation currently. Rewarmed to 37 C. No problem. Tolerating tube feeds currently at 30 cc now. 05/12: Currently resting in bed. New central has been placed and targeted temperature monitoring Quatro catheter has been removed. Seizures overnight. Currently on fosphenytoin and levetiracetam. Remains on midazolam drip. Updated at bedside. 05/13: Low-grade temperature during the night continues greater than 99.0., Noted blood cultures negative growth to date. Remains encephalopathic .EEG revealed continued epileptiform activity. Patient noted phenobarbital level this a.m. subtherapeutic at 3.1. Noted persistent leukocytosis, bilateral pulmonary opacities, sputum culture pending. Palliative care has been consulted. 05/14: Sedative discontinued early this a.m.. Noted spontaneous eye opening with neurologist Dr. Connor at the bedside, not following any commands. EEG revealed a few spikes, patient continues on anticonvulsant regimen and seizure precautions. Noted hypertension systolic blood pressure greater than 170 Vasotec reinitiated. discussed findings with Dr. Connor at bedside we will continue to monitor discontinue all sedatives and continually evaluate neurological status. Plan this afternoon to meet with patient's Mrs. Siddiqui and palliative care. 05/15: Off all sedation noted spontaneous movement but not following any commands with excessive yawning and grimacing noted. Patient placed back on propofol low-dose infusion. Palliative care conference with patient's reveal patient to be placed in a no CPR CODE STATUS at this time. Discussion with Dr. Connor, neurology yesterday we will continue to monitor and evaluate optimizing care and continued evaluation at this time. No change in respiratory requirements however chest x-ray noted bilateral pleural effusions IV infusions decreased patient now normotensive carvedilol reinitiated. 05/16: Afebrile. Per RN yesterday the patient followed commands with left upper extremity. Upon my evaluation paid patient noted to be off sedation spontaneous eye opening and tracking. Excessive yawning and grimacing also noted. Propofol has been discontinued Precedex to maintain ventilator synchrony if required. Patient continues on heparin infusion. Leukocytosis has been resolved. Review of EEG per neurology only a few sharp spikes phenobarbital has been discontinued. 05/17: Patient remains on Precedex infusion @ 1.2 mcg/kg/hr. Per report the patient was extremely agitated early this a.m.. Upon evaluation of the patient , he is responding to commands squeezing hands bilaterally, and also bilateral movement of lower extremities. Patient is nodding head to yes and no questions , and attempting to talk. 05/18: Afebrile. Remains on dexmedetomidine drip at 0.7 mg/kg/h. On low-dose propofol due to agitation. Arousable and does follow commands. Tolerating tube feeding. Currently normal sinus rhythm. 05/19: Creatinine currently 4.7. Arousable and quite agitated on the ventilator. Will attempt to wean off and hold tube feeds and attempt x-ray at 11 AM today. Noted elevated white blood count and persistent fevers. Pancultured today. 05/20: Dialysis catheter placed today right IJ. -3 L. Fevers or bleeding. Removed left IJ CVL. FiO2 down to 50% PEEP down to 10. Much improved respiratory status. Starting on tube feeding. 05/21: T-max 99.1. -3 L with hemodialysis yesterday and today. FiO2 much improved. Appears more comfortable on ventilator. Subjective: 05/22: Poor tube feed tolerance overnight t. Slightly hypoglycemic. Will restart today. Plan for hemodialysis again today and possible extubation in a.m. 05/23. 05/23: Dialysis with fluid removal today targeting 3.5 L removal. SBT with possible extubation after dialysis. Will also check chest x-ray post dialysis. Still making urine 1.4 L in the last 24 hours 05/24: Extubated yesterday after hemodialysis tolerating well respiratory coe. Overnight very agitated started on Precedex. Currently somnolent on Precedex will start weaning. UO 1.1L in 24 hours 05/25: Developed severe agitation and severe acute pulmonary edema overnight. Patient was severely hypoxemic given 40 mg of IV Lasix, placed on BiPAP currently at 80% FiO2. Patient is very tachypneic. A stat chest x-ray on my review shows severe bilateral pulmonary edema. I have started patient on Bumex 2 mg IV push and Bumex infusion at 1 mg/h. Also I have contacted Dr. Marcelino nephrology for emergency dialysis Objective Vital Signs / I&O: Vital Signs 05/24/18 08:00 05/24/18 08:21 05/24/18 09:00 Temperature 97.7 F Pulse Rate 66 65 74 Respiratory Rate 18 16 Blood Pressure 148/71 H 146/69 H Pulse Oximetry 93 L 93 L 95 05/24/18 10:00 05/24/18 11:00 05/24/18 11:39 Temperature Pulse Rate 72 71 71 Respiratory Rate 22 Blood Pressure 145/69 H 139/69 Pulse Oximetry 92 L 90 L 05/24/18 12:00 05/24/18 13:00 05/24/18 14:00 Temperature 97.6 F Pulse Rate 69 64 75 Respiratory Rate 22 Blood Pressure 130/62 136/73 133/60 Pulse Oximetry 96 88 L 92 L 05/24/18 15:00 05/24/18 16:00 05/24/18 16:01 Temperature 98.0 F Pulse Rate 82 88 86 Respiratory Rate 19 Blood Pressure 129/61 130/80 141/65 H Pulse Oximetry 92 L 96 05/24/18 17:00 05/24/18 18:04 05/24/18 19:00 Temperature Pulse Rate 91 H 91 H Respiratory Rate Blood Pressure 138/82 155/73 H 158/72 H Pulse Oximetry 92 L 92 L 05/24/18 20:00 05/24/18 20:53 12/01/18 21:00 Temperature 99.4 F Pulse Rate 100 H 119 H 117 H Respiratory Rate 60 H Blood Pressure 155/72 H Pulse Oximetry 89 L 05/24/18 22:00 05/24/18 22:52 05/24/18 23:00 Temperature Pulse Rate 104 H 102 H 104 H Respiratory Rate 24 26 H Blood Pressure 177/84 H Pulse Oximetry 93 L 90 L 89 L 05/24/18 23:25 05/24/18 23:26 05/25/18 00:00 Temperature 99.4 F Pulse Rate 100 H 97 H Respiratory Rate 52 H 28 H Blood Pressure 163/76 H Pulse Oximetry 90 L 91 L 05/25/18 00:04 05/25/18 01:00 05/25/18 02:00 Temperature Pulse Rate 95 H 91 H Respiratory Rate Blood Pressure 155/88 H 159/76 H Pulse Oximetry 90 L 92 L 97 05/25/18 03:00 05/25/18 04:00 05/25/18 04:26 Temperature 99.1 F Pulse Rate 92 H 84 Respiratory Rate 24 Blood Pressure 154/74 H 149/72 H Pulse Oximetry 98 99 97 05/25/18 04:27 05/25/18 05:00 05/25/18 06:00 Temperature Pulse Rate 84 82 78 Respiratory Rate 50 H Blood Pressure 137/68 147/80 H Pulse Oximetry Intake & Output 05/24/18 05/25/18 05/25/18 18:59 06:59 18:59 Intake Total 400 / 400 750 / 750 Output Total 475 / 475 950 / 950 Balance -75 / -75 -200 / -200 Weight 75 kg Intake: IV 400 / 400 750 / 750 Precedex Inj 1,000 MCG In NS 250 / 250 Inj 240 ML @ 0.2 MCG/KG/HR 4.24 mls/hr IV.CONT TITRATE PRN Rx# :[id number] Precedex Inj 200 MCG In NS Inj 50 / 50 48 ML @ 0.2 MCG/KG/HR 4.24 mls/ hr IV.CONT TITRATE PRN Rx#: [id number] Flexbumin 25% Inj 100 ML @ 60 100 / 100 mls/hr IV.SIG Q12H JIM Rx#: [id number] Zyvox 600 mg Premix 300 ML @ 300 / 300 300 / 300 300 mls/hr IV.SIG Q12H JIM Rx#: [id number] Zosyn 2.25 GM Premix 50 ML @ 50 / 50 100 / 100 100 mls/hr IV.SIG Q8H JIM Rx#: [id number] Oral 0 / 0 Output: Urine Amount (Catheter) 475 / 475 950 / 950 Indwelling Urethral Catheter 475 / 475 950 / 950 Other: Date of Last Bowel Movement 05/24/18 05/24/18 # Bowel Movements 8 # Incontinent Bowel Movements 1 Result Diagrams: 05/24/18 03:45 05/24/18 03:45 Objective Remarks: GENERAL: 63-year-old male currently somnolent on Precedex but tachypneic and in distress SKIN: Warm and dry. No rash. HEAD: Atraumatic. Normocephalic. EYES: Pupils equal and round and minimally reactive bilaterally. No scleral icterus. No injection or drainage. ENT: No nasal bleeding or discharge. BiPAP mask limits exam NECK: Trachea midline. No JVD. Right IJ hemodialysis catheter is clean dry and intact. CARDIOVASCULAR: RRR S1, S2. No S4. RESPIRATORY: On BiPAP 15/5, using accessory muscles in moderate to severe distress. Bilateral coarse rhonchi and crackles. Currently on FiO2 80% GASTROINTESTINAL: Abdomen soft, non-tender, nondistended. Hepatic and splenic margins not palpable. Normal active bowel sounds MUSCULOSKELETAL: Extremities without clubbing,. Trace to 1+ bilateral lower extremity edema NEUROLOGICAL: Patient is on high dose of Precedex somnolent. Moderate to severe respiratory distress limits exam. Intermittently follows commands Assessment and Plan - Assessment and Plan Plan: Neuro/Psych: Possible mild anoxic brain injury Agitated delirium Original CT brain on admission revealed possible 3 mm mid right araseli hemorrhage. MRI brain revealed left maxillary, bilateral ethmoid and sphenoid sinusitis. MRA brain normal Currently on Precedex for agitation. Use Ativan and Geodon for severe agitation Neurology/Dr. Connor following EEG completed 05/09 with no epileptic activity. Repeat 05/12 with sharp activity. Currently on fosphenytoin 300 mg daily. Discontinued levetiracetam secondary to acute kidney injury CV Flash pulmonary edema Out of hospital cardiac arrest/V. 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 Haile. Will follow as needed. Awaiting return of renal function prior to heart catheterization. Possible LifeVest/ASD prior to discharge if neurological function continues to improve Carvedilol 3.125 mg twice daily, Aspirin 81 mg daily. Discontinued heparin drip. 05/12 Added enalapril 2.5 mg daily and atorvastatin 10 mg since MRI brain revealed no hemorrhage discontinued enalapril 2.5 mg daily in light of acute kidney injury Originally not candidate for cardiac catheterization due to pontine hemorrhage right mid araseli. This is been changed with MRI/A 2D echocardiogram revealed EF 30-35%. Ruptured chordae tendon possible involving mitral valve. His overall prognosis is very poor Resp: Acute hypoxemic respiratory failure from flash pulmonary edema Extubated 05/23/2018 now with severe pulmonary edema and hypoxic respiratory failure BiPAP 15/5 with 80% FiO2. Diuresis and hemodialysis as above Head of bed at 30 degrees Albuterol/ipratropium aerosols every 4 hours with albuterol aerosols every 2 hours as needed dyspnea Chest x-ray revealed severe pulmonary edema GI: Hyperammonemia N.p.o. Pantoprazole for GI prophylaxis Docusate serum/senna 1 tablet twice daily for bowel regimen with lactulose 30 cc twice daily Ammonia level in a.m. 05/23 43 Endo: Acute hyperglycemia Low TSH Sliding scale insulin with Accu-Cheks to maintain euglycemia. On insulin detemir 4 units twice daily TSH was 0.285. Normal free T4/total T3. Recheck 4-6-week HEME: Normocytic anemia Monitor CBC daily. Follow trends. No indication for transfusion of blood products at this time Renal Acute kidney failure Last hemodialysis on 05/23/2018 Need emergent hemodialysis today for acute flash pulmonary edema. Bumex 2 mg IV push and 1 mg/h infusion Acute I's and O's, maintain Orellana. Monitor urine output Avoid nephrotoxic medications. Discontinue enalapril. Discontinued vancomycin. Discontinue levetiracetam. Negative urine eosinophils. Negative renal ultrasound for hydronephrosis. Received hemodialysis 05/20. 05/21, 05/23, planned for today ID: MRSA sputum positive 05/13 05/19 Monitor for signs and symptomatology infection Patient with aspiration. Discontinued vancomycin and piperacillin/tazobactam. Completed 7 days therapy. Currently on Linezolid and piperacillin l/tazobactam restarted 05/19. Access -Left CVL day 8 removed 05/20. Right IJ hemodialysis catheter day placed 05/20. Prophylaxis - -GI pantoprazole - -DVT -SCD/heparin subcu CCT 45 MIN. Patient is very critical now with severe CHF and flash pulmonary edema. Currently agitated on BiPAP requiring 80% oxygen. I have contacted nephrology for emergency dialysis. 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 His prognosis is very poor. If he does not improve with hemodialysis I recommend comfort measures. Will discuss with
--- NOTE | 2018-05-25 07:24 | XR ---
EXAM DATE: 05/25/2018 7:07 AM EST AGE/SEX: 63 years / Male INDICATIONS: Respiratory distress. CLINICAL DATA: This is the patient's subsequent encounter. Patient reports that signs and symptoms h ave been present for 3 weeks and indicates a pain score of 0/10. MEDICAL/SURGICAL HISTORY: Myocardial infarction. None. COMPARISON: C, CHEST 1V SINGLE AP, 05/23/2018. . FINDINGS: The previously noted endotracheal tube and NG tube have been removed. A right-sided central line rene ins in place. There is no pneumothorax. There is interstitial and airspace infiltrates throughout bot h lung oro. The interstitial and airspace infiltrates have increased throughout the left lung comp ared to the prior examination. The heart size is stable. No significant pleural effusions are demonst rated. The bony structures are stable. CONCLUSION: Bilateral interstitial and airspace pulmonary infiltrates are noted throughout both lung oro. The interstitial and airspace infiltrates are increased on the left compared to the prior study. Electronically signed by: Morris Chery MD 05/25/2018 7:23 AM EST
[2018-05-25] MEDS ORDERED: Bumetanide Inj 25 MG/100 ML BAG IV.CONT SCH (08:00)
--- NOTE | 2018-05-25 09:46 | P.PNNP ---
Subjective Interval history: Patient is lethargic, on BIPAP, in moderate resp. distress. Physical Exam Vital signs: Vital Signs 05/24/18 10:00 05/24/18 11:00 05/24/18 11:39 Temperature Pulse Rate 72 71 71 Respiratory Rate 22 Blood Pressure 145/69 H 139/69 Pulse Oximetry 92 L 90 L 05/24/18 12:00 05/24/18 13:00 05/24/18 14:00 Temperature 97.6 F Pulse Rate 69 64 75 Respiratory Rate 22 Blood Pressure 130/62 136/73 133/60 Pulse Oximetry 96 88 L 92 L 05/24/18 15:00 05/24/18 16:00 05/24/18 16:01 Temperature 98.0 F Pulse Rate 82 88 86 Respiratory Rate 19 Blood Pressure 129/61 130/80 141/65 H Pulse Oximetry 92 L 96 05/24/18 17:00 05/24/18 18:04 05/24/18 19:00 Temperature Pulse Rate 91 H 91 H Respiratory Rate Blood Pressure 138/82 155/73 H 158/72 H Pulse Oximetry 92 L 92 L 05/24/18 20:00 05/24/18 20:53 05/24/18 21:00 Temperature 99.4 F Pulse Rate 100 H 119 H 117 H Respiratory Rate 60 H Blood Pressure 155/72 H Pulse Oximetry 89 L 05/24/18 22:00 05/24/18 22:52 05/24/18 23:00 Temperature Pulse Rate 104 H 102 H 104 H Respiratory Rate 24 26 H Blood Pressure 177/84 H Pulse Oximetry 93 L 90 L 89 L 05/24/18 23:25 05/24/18 23:26 05/25/18 00:00 Temperature 99.4 F Pulse Rate 100 H 97 H Respiratory Rate 52 H 28 H Blood Pressure 163/76 H Pulse Oximetry 90 L 91 L 05/25/18 00:04 05/25/18 01:00 05/25/18 02:00 Temperature Pulse Rate 95 H 91 H Respiratory Rate Blood Pressure 155/88 H 159/76 H Pulse Oximetry 90 L 92 L 97 05/25/18 03:00 05/25/18 04:00 05/25/18 04:26 Temperature 99.1 F Pulse Rate 92 H 84 Respiratory Rate 24 Blood Pressure 154/74 H 149/72 H Pulse Oximetry 98 99 97 05/25/18 04:27 05/25/18 05:00 05/25/18 06:00 Temperature Pulse Rate 84 82 78 Respiratory Rate 50 H Blood Pressure 137/68 147/80 H Pulse Oximetry 05/25/18 07:50 Temperature Pulse Rate 81 Respiratory Rate 40 H Blood Pressure Pulse Oximetry 90 L Intake & Output 05/24/18 05/25/18 05/25/18 18:59 06:59 18:59 Intake Total 400 / 400 750 / 750 Output Total 475 / 475 950 / 950 Balance -75 / -75 -200 / -200 Weight 75 kg Intake: IV 400 / 400 750 / 750 Precedex Inj 1,000 MCG In NS 250 / 250 Inj 240 ML @ 0.2 MCG/KG/HR 4.24 mls/hr IV.CONT TITRATE PRN Rx# :[id number] Precedex Inj 200 MCG In NS Inj 50 / 50 48 ML @ 0.2 MCG/KG/HR 4.24 mls/ hr IV.CONT TITRATE PRN Rx#: [id number] Flexbumin 25% Inj 100 ML @ 60 100 / 100 mls/hr IV.SIG Q12H JIM Rx#: [id number] Zyvox 600 mg Premix 300 ML @ 300 / 300 300 / 300 300 mls/hr IV.SIG Q12H JIM Rx#: [id number] Zosyn 2.25 GM Premix 50 ML @ 50 / 50 100 / 100 100 mls/hr IV.SIG Q8H JIM Rx#: [id number] Oral 0 / 0 Output: Urine Amount (Catheter) 475 / 475 950 / 950 Indwelling Urethral Catheter 475 / 475 950 / 950 Other: Date of Last Bowel Movement 05/24/18 05/24/18 # Bowel Movements 8 # Incontinent Bowel Movements 1 Narrative: GENERAL: sleepy, not in distress. SKIN: Warm and dry. HEAD: Atraumatic. Normocephalic. ENT: Intubated RESPIRATORY: Intubated CTA GASTROINTESTINAL: Abdomen soft, non-tender, nondistended. MUSCULOSKELETAL: Extremities without clubbing, cyanosis, or edema. No obvious deformities. NEUROLOGICAL: Sleepy not following, grimaces, - Urinary Catheter Management Indwelling Temp Sensing Catheter Cath placed during this visit: yes, but has since been removed by the nurse Reason for continuing: Not indwelling catheter Insertion date: 05/08/18 Insertion time: 22:40 Removal date: 05/19/18 Removal time: 12:00 Straight Cath placed during this visit: yes Reason for continuing: Not indwelling catheter Insertion date: 05/20/18 Insertion time: 00:00 Condom Cath placed during this visit: no Indwelling Urethral Catheter Cath placed during this visit: yes Reason for continuing: Hourly intake/output Insertion date: 05/20/18 Insertion time: 08:30 Assessment and Plan - Assessment (1) Acute renal failure Code(s): N17.9 - Acute kidney failure, unspecified Status: Acute (2) Cardiac arrest Code(s): I46.9 - Cardiac arrest, cause unspecified Status: Acute (3) Seizure Code(s): R56.9 - Unspecified convulsions Status: Acute (4) Acute respiratory failure Code(s): J96.00 - Acute respiratory failure, unspecified whether with hypoxia or hypercapnia Status: Acute - Plan Patient was reintubated because of pulmonary edema however he has good urine output, Now extubated, hemodialysis and Vas-Cath inserted and HD started. Last HD was yesterday. Dialysis on MWF Monitor intake and output He has ATN related to vancomycin induced toxicity History of cardiac arrest Neuro: Neurological patient is sluggish will monitor. Urine out put is low, has more fluid overload. To give one HD treatment, mainly for fluid removal. Patient is possibly going on Hospice.
[2018-05-25] MEDS: Morphine Sulfate Inj 2 MG/ML Vial IV.PUSH PRN (09:57)
[2018-05-25] MEDS: Insulin Detemir Inj 1,000 UNIT/10 ML Vial SQ SCH (10:26)
[2018-05-25] MEDS: Chlorhexidine 0.12% Oral Kit 15 ML UDC OROPHARYNG SCH (11:17)
[2018-05-25] MEDS: Amiodarone 200 MG Tablet PO SCH (11:18)
[2018-05-25] MEDS: Mupirocin 2% Nasal Oint Topical Syringe EACH NARE SCH (11:18)
[2018-05-25] MEDS: Polyethylene Glycol 3350 17 GM Packet PO SCH (11:18)
[2018-05-25] MEDS: Senna/Docusate Sodium 8.6/50 MG Tablet PO SCH (11:19)
--- NOTE | 2018-05-25 13:13 | P.DS ---
Date of admission: 05/08/18 21:18 Primary care physician: Joseph Calhoun MD Brief History from admission: 63-year-old male presents to emergency department intubated after VF/VT arrest. He had to be defibrillated twice in the field, afterwards clear STEMI criteria was called by [facility]. Apparently heard a collapse in the next room found the patient unresponsive called 9 1. Apparently total downtime was about 10 minutes and had a very quick Rask. Blood pressure was little low and dopamine drip was started in the field. Patient also had amiodarone started in the field. Initially the STEMI alert was called brain demonstrated punctate hyperdensity characteristic of hemorrhage in the right mid araseli in the STEMI alert was canceled. The patient has been admitted to ICU for hypothermia protocol treatment post cardiac arrest. Patient update on day of discharge: Developed flash pulmonary edema. Emergency hemodialysis started. Patient in severe distress. decided to discontinue all treatment and decide to go for hospice with comfort measures only DS: Diagnosis - Discharge Diagnosis (1) Acute hypoxemic respiratory failure Status: Acute (2) Flash pulmonary edema Status: Acute (3) Acute systolic congestive heart failure Status: Acute (4) Delirium Status: Acute (5) Ventricular fibrillation Status: Acute (6) Hypoxic encephalopathy Status: Acute (7) Cardiac arrest Status: Acute (8) Ischemic cardiomyopathy Status: Acute (9) Acute renal failure Status: Acute (10) STEMI (ST elevation myocardial infarction) Status: Acute DS: Summary Hospital Course: 63-year-old male presents to emergency department intubated after VF/VT arrest. He had to be defibrillated twice in the field, afterwards clear STEMI criteria was called by EVAC. Apparently heard a collapse in the next room found the patient unresponsive called 9 1. Apparently total downtime was about 10 minutes and had a very quick Rask. Blood pressure was little low and dopamine drip was started in the field. Patient also had amiodarone started in the field. Initially the STEMI alert was called brain demonstrated punctate hyperdensity characteristic of hemorrhage in the right mid araseli in the STEMI alert was canceled. The patient has been admitted to ICU for hypothermia protocol treatment post cardiac arrest. 05/09: Discussed with at bedside. Currently on target temperature monitoring. EEG performed. Replacing potassium and phosphorus this a.m. 05/10: Currently temperature is a 97. Has been rewarmed from target temperature monitoring. EEG revealed no epileptic activity. Replace potassium currently. MRI brain revealed no signs of hemorrhage. Will start on heparin drip AL protocol 900 units an hour and provide aspirin. Carvedilol started by cardiology during the a.m. 05/11: Phosphorus being replaced. Weaning off sedation currently. Rewarmed to 37 C. No problem. Tolerating tube feeds currently at 30 cc now. 05/12: Currently resting in bed. New central has been placed and targeted temperature monitoring Quatro catheter has been removed. Seizures overnight. Currently on fosphenytoin and levetiracetam. Remains on midazolam drip. Updated at bedside. 05/13: Low-grade temperature during the night continues greater than 99.0., Noted blood cultures negative growth to date. Remains encephalopathic .EEG revealed continued epileptiform activity. Patient noted phenobarbital level this a.m. subtherapeutic at 3.1. Noted persistent leukocytosis, bilateral pulmonary opacities, sputum culture pending. Palliative care has been consulted. 05/14: Sedative discontinued early this a.m.. Noted spontaneous eye opening with neurologist Dr. Connor at the bedside, not following any commands. EEG revealed a few spikes, patient continues on anticonvulsant regimen and seizure precautions. Noted hypertension systolic blood pressure greater than 170 Vasotec reinitiated. discussed findings with Dr. Connor at bedside we will continue to monitor discontinue all sedatives and continually evaluate neurological status. Plan this afternoon to meet with patient's Mrs. Siddiuqi and palliative care. 05/15: Off all sedation noted spontaneous movement but not following any commands with excessive yawning and grimacing noted. Patient placed back on propofol low-dose infusion. Palliative care conference with patient's reveal patient to be placed in a no CPR CODE STATUS at this time. Discussion with Dr. Connor, neurology yesterday we will continue to monitor and evaluate optimizing care and continued evaluation at this time. No change in respiratory requirements however chest x-ray noted bilateral pleural effusions IV infusions decreased patient now normotensive carvedilol reinitiated. 05/16: Afebrile. Per RN yesterday the patient followed commands with left upper extremity. Upon my evaluation paid patient noted to be off sedation spontaneous eye opening and tracking. Excessive yawning and grimacing also noted. Propofol has been discontinued Precedex to maintain ventilator synchrony if required. Patient continues on heparin infusion. Leukocytosis has been resolved. Review of EEG per neurology only a few sharp spikes phenobarbital has been discontinued. 05/17: Patient remains on Precedex infusion @ 1.2 mcg/kg/hr. Per report the patient was extremely agitated early this a.m.. Upon evaluation of the patient , he is responding to commands squeezing hands bilaterally, and also bilateral movement of lower extremities. Patient is nodding head to yes and no questions , and attempting to talk. 05/18: Afebrile. Remains on dexmedetomidine drip at 0.7 mg/kg/h. On low-dose propofol due to agitation. Arousable and does follow commands. Tolerating tube feeding. Currently normal sinus rhythm. 05/19: Creatinine currently 4.7. Arousable and quite agitated on the ventilator. Will attempt to wean off and hold tube feeds and attempt x-ray at 11 AM today. Noted elevated white blood count and persistent fevers. Pancultured today. 05/20: Dialysis catheter placed today right IJ. -3 L. Fevers or bleeding. Removed left IJ CVL. FiO2 down to 50% PEEP down to 10. Much improved respiratory status. Starting on tube feeding. 05/21: T-max 99.1. -3 L with hemodialysis yesterday and today. FiO2 much improved. Appears more comfortable on ventilator. Subjective: 05/22: Poor tube feed tolerance overnight t. Slightly hypoglycemic. Will restart today. Plan for hemodialysis again today and possible extubation in a.m. 05/23. 05/23: Dialysis with fluid removal today targeting 3.5 L removal. SBT with possible extubation after dialysis. Will also check chest x-ray post dialysis. Still making urine 1.4 L in the last 24 hours 05/24: Extubated yesterday after hemodialysis tolerating well respiratory coe. Overnight very agitated started on Precedex. Currently somnolent on Precedex will start weaning. UO 1.1L in 24 hours 05/25: Developed severe agitation and severe acute pulmonary edema overnight. Patient was severely hypoxemic given 40 mg of IV Lasix, placed on BiPAP currently at 80% FiO2. Patient is very tachypneic. A stat chest x-ray on my review shows severe bilateral pulmonary edema. I have started patient on Bumex 2 mg IV push and Bumex infusion at 1 mg/h. Also I have contacted Dr. Marcelino nephrology for emergency dialysis. Emergency hemodialysis started. Patient in severe distress and decided to discontinue all treatment and decided to go for hospice with comfort measures only - Time Spent with Patient Total time spent providing and/or coordinating discharge services: Greater than 30 minutes - Quality: VTE Deep Vein Thrombosis/Pulmonary Embolism Present on Admission: No Exam Vital signs: Vital Signs 05/24/18 14:00 05/24/18 15:00 05/24/18 16:00 Temperature 98.0 F Pulse Rate 75 82 88 Respiratory Rate 19 Blood Pressure 133/60 129/61 130/80 Pulse Oximetry 92 L 92 L 96 05/24/18 16:01 05/24/18 17:00 05/24/18 18:04 Temperature Pulse Rate 86 91 H Respiratory Rate Blood Pressure 141/65 H 138/82 155/73 H Pulse Oximetry 92 L 05/24/18 19:00 05/24/18 20:00 05/24/18 20:53 Temperature 99.4 F Pulse Rate 91 H 100 H 119 H Respiratory Rate 60 H Blood Pressure 158/72 H 155/72 H Pulse Oximetry 92 L 89 L 05/24/18 21:00 05/24/18 22:00 05/24/18 22:52 Temperature Pulse Rate 117 H 104 H 102 H Respiratory Rate 24 Blood Pressure 177/84 H Pulse Oximetry 93 L 90 L 05/24/18 23:00 05/24/18 23:25 05/24/18 23:26 Temperature Pulse Rate 104 H 100 H Respiratory Rate 26 H 52 H Blood Pressure Pulse Oximetry 89 L 90 L 05/25/18 00:00 05/25/18 00:04 05/25/18 01:00 Temperature 99.4 F Pulse Rate 97 H 95 H Respiratory Rate 28 H Blood Pressure 163/76 H 155/88 H Pulse Oximetry 91 L 90 L 92 L 05/25/18 02:00 05/25/18 03:00 05/25/18 04:00 Temperature 99.1 F Pulse Rate 91 H 92 H 84 Respiratory Rate 24 Blood Pressure 159/76 H 154/74 H 149/72 H Pulse Oximetry 97 98 99 05/25/18 04:26 05/25/18 04:27 05/25/18 05:00 Temperature Pulse Rate 84 82 Respiratory Rate 50 H Blood Pressure 137/68 Pulse Oximetry 97 05/25/18 06:00 05/25/18 07:00 05/25/18 07:50 Temperature Pulse Rate 78 79 81 Respiratory Rate 40 H Blood Pressure 147/80 H 133/72 Pulse Oximetry 93 L 90 L 05/25/18 08:00 05/25/18 09:00 05/25/18 09:30 Temperature 99.2 F Pulse Rate 79 75 86 Respiratory Rate Blood Pressure 155/74 H 144/72 H 163/77 H Pulse Oximetry 97 86 L 05/25/18 09:45 05/25/18 10:00 05/25/18 10:15 Temperature Pulse Rate 90 90 84 Respiratory Rate Blood Pressure 165/78 H 162/76 H 140/75 Pulse Oximetry 85 L 86 L 05/25/18 10:30 05/25/18 10:45 05/25/18 11:00 Temperature Pulse Rate 87 81 76 Respiratory Rate Blood Pressure 143/66 H 135/69 131/61 Pulse Oximetry 90 L 94 L 05/25/18 11:15 Temperature Pulse Rate 75 Respiratory Rate 45 H Blood Pressure 116/61 Pulse Oximetry 100 Intake & Output 05/24/18 05/25/18 05/25/18 18:59 06:59 18:59 Intake Total 400 / 400 750 / 750 Output Total 475 / 475 950 / 950 1300 / 1300 Balance -75 / -75 -200 / -200 -1300 / -1300 Weight 75 kg Intake: IV 400 / 400 750 / 750 Precedex Inj 1,000 MCG In NS 250 / 250 Inj 240 ML @ 0.2 MCG/KG/HR 4.24 mls/hr IV.CONT TITRATE PRN Rx# :[id number] Precedex Inj 200 MCG In NS Inj 50 / 50 48 ML @ 0.2 MCG/KG/HR 4.24 mls/ hr IV.CONT TITRATE PRN Rx#: [id number] Flexbumin 25% Inj 100 ML @ 60 100 / 100 mls/hr IV.SIG Q12H JIM Rx#: [id number] Zyvox 600 mg Premix 300 ML @ 300 / 300 300 / 300 300 mls/hr IV.SIG Q12H JIM Rx#: [id number] Zosyn 2.25 GM Premix 50 ML @ 50 / 50 100 / 100 100 mls/hr IV.SIG Q8H JIM Rx#: [id number] Oral 0 / 0 Output: Hemodialysis Amount 1300 / 1300 Urine Amount (Catheter) 475 / 475 950 / 950 Indwelling Urethral Catheter 475 / 475 950 / 950 Other: Date of Last Bowel Movement 05/24/18 05/24/18 05/24/18 # Bowel Movements 8 # Incontinent Bowel Movements 1 Narrative: GENERAL: 63-year-old male currently orotracheally intubated SKIN: Warm and dry. No rash. HEAD: Atraumatic. Normocephalic. EYES: Pupils equal and round and minimally reactive bilaterally. No scleral icterus. No injection or drainage. ENT: No nasal bleeding or discharge. Mucous membranes pink and moist. NECK: Trachea midline. No JVD. Right IJ hemodialysis catheter is clean dry and intact. CARDIOVASCULAR: RRR S1, S2. No S4. RESPIRATORY: No accessory muscle use. Clear to auscultation. Breath sounds equal bilaterally. GASTROINTESTINAL: Abdomen soft, non-tender, nondistended. Hepatic and splenic margins not palpable. Normal active bowel sounds MUSCULOSKELETAL: Extremities without clubbing,. Trace to 1+ bilateral lower extremity edema NEUROLOGICAL: GCS 11T. Alert and responsive to commands moves all 4 extremities x4. Results Procedures completed during hospitalization: -Left CVL. Right IJ hemodialysis catheter Labs on day of discharge: Labs from last 24 hours 05/25/18 05/25/18 05/24/18 03:43 00:03 21:46 POC Glucose 104 128 H 182 H 05/24/18 05/24/18 19:54 16:09 POC Glucose 121 H 129 H - Impressions ITS Impressions Head CT 05/08/18 20:43 CONCLUSION: 1. Punctate hyperdensity characteristic of hemorrhage in the right mid araseli. 2. No acute findings in the supratentorial brain. . Cervical Spine CT 05/08/18 20:44 CONCLUSION: 1. Moderate degenerative changes at C6-7. 2. Otherwise negative exam. Head MRI 05/10/18 00:00 CONCLUSION: 1. No evidence of acute hemorrhage within the right araseli. 2. No acute infarct, acute hemorrhage, midline shift or extra-axial fluid collection. 3. Mucosal thickening involving the left maxillary sinus, bilateral anterior ethmoid air cells and bilateral sphenoid sinuses. 4. Some fluid within the mastoid air cells bilaterally. Head MRA 05/10/18 06:52 CONCLUSION: 1. Negative MRA [place] ([place]) non contrast. Abdomen/Bladder Ultrasound 05/18/18 00:00 CONCLUSION: 1. Negative renal ultrasound examination. 2. The urinary bladder is decompressed by [place] catheter. Abdomen X-Ray 05/22/18 06:44 CONCLUSION: Nonspecific, benign intestinal gas pattern Chest X-Ray 05/25/18 00:00 CONCLUSION: Bilateral interstitial and airspace pulmonary infiltrates are noted throughout both lung oro. The interstitial and airspace infiltrates are increased on the left compared to the prior study. Discharge Plan - Discharge Disposition Patient Disposition: [facility] - Discharge Condition Condition: Serious - Discharge Order Discharge Orders: Discharge Order (Routine); Ordered 05/25/18 Ordered By: Fernando Huitron - Discharge Details Anticipated Discharge Date: 05/25/18 - Physicians Team Primary Care Provider: Joseph Calhoun Attending Provider: Campos Palmer Other Providers: Maged Cardenas MD ; Jose Garcia ; Pablo Connor MD ; Dior Stringer MD ; George Sheppard MD ; Anders Haile MD
--- NOTE | 2018-05-26 14:22 | ECG ---
Date Performed: 05/24/2018 Time Performed: 17:59:08 PTAGE: 63 years EKG: Sinus rhythm . Rightward axis ANTEROSEPTAL INFARCT - POSSIBLY ACUTE Possible inferior infarct - age undete rmined Lateral T wave changes are nonspecific Compared to previous tracing ST elevation persists with some T wave inversion. Continued Clinical correlation is recommended Abnormal ECG PREVIOUS TRACING : 05/09/2018 03.42 DOCTOR: Mor Rojas Interpretating Date/Time 05/26/2018 14:21:27
== END 2018-05-25 15:15 | disposition hospice, inpatient (51) ==
LOC: NEPE 20:34 → NEDA 21:18 → HIMC 22:10
PROVIDERS: ADMIT Internal Medicine Critical Care Medicine; ATTEND Internal Medicine Critical Care Medicine